=== PATIENT | male | born 1955 | race Caucasian/White ===

== ENCOUNTER 2022-01-27 14:39 | Inpatient (IN) ==
[2022-01-27] MEDS ORDERED: SODIUM CHLORIDE 0.9% 500 ML IV SCH (15:00)
--- NOTE | 2022-01-27 15:06 | Emergency Department Note ---
Impression & Plan SOB (shortness of breath), Atrial fibrillation with rapid ventricular response, Weakness, Anemia, Hypomagnesemia ED Provider Note NAME: KENZIE CAO AGE: 66 SEX: M : 1955 ARRIVES VIA: Walk-In INFORMANT: [Patient] ED PROVIDER(S): [Vance Ramirez MD] CHIEF COMPLAINT: Short of breath HISTORY OF PRESENT ILLNESS: The patient is a 66-year-old male who presents to the ER with some shortness of breath and nausea and chills. The patient left [facility] in [place] on the , 5 days ago. He was in [place] for 50 days for intensive chemotherapy. When he left [place], his white count was 4, his hemoglobin was 7.5, his platelet count was 58. He went back to [place] 2 days ago and had a checkup and things were okay. Yesterday, the patient developed some increasing shortness of breath. Today, he was short of breath, he was nauseated with some chills. He denies any increased cough, no vomiting or diarrhea. No urinary complaints. He is concerned that his counts may be low. His did note he is quite pale REVIEW OF SYSTEMS: See HPI for pertinent positives and negatives. A total of ten systems were reviewed and were otherwise negative. PMHx/PSHx: See Below SOCIAL HISTORY: See Below. PHYSICAL EXAM: GENERAL: Patient is in no acute distress. HEENT: No acute trauma, normocephalic atraumatic, mucous membranes moist, no nasal congestion, no scleral icterus. NECK: No stridor, no adenopathy, no meningismus, trachea is midline. LUNGS: Clear to auscultation bilaterally, no wheeze, no rhonchi, breath sounds equal. HEART: Mildly tachycardic, irregular rhythm, no obvious murmurs. ABDOMEN: Soft, nontender, bowel sounds positive, no peritonitis. EXTREMITIES: No cyanosis, mild bilateral pedal edema, full range of motion of all the joints without pain or difficulty, no signs for acute trauma. NEUROLOGIC: Oriented x 3, no acute motor or sensory deficits, no focal weakness. SKIN: No rash, no jaundice, no diaphoresis. Pale. DIFFERENTIAL DIAGNOSIS: Infection, dehydration, UTI, neutropenia, COVID-19, influenza, metabolic abnormality, hypo/hyperglycemia, electrolyte disturbance, anemia, hypoxia, cardiac sources, intracerebral event, toxicologic issues, stroke, TIA, as well as other pathologies. EMERGENCY DEPARTMENT COURSE/PROCEDURES: ECG: Indication was weakness. The ECG shows atrial fibrillation with a rate of 110. There is diffuse nonspecific ST change. No ST elevation, no PVCs. The QTc is 373. Continuous Cardiac Monitoring: An order was placed for continuous cardiac monitoring. The monitor shows a rate of 118 with atrial fibrillation. Critical Care Note: I have personally spent 49 minutes of critical care time in the direct management of this patient. This includes bedside care, in terpretation of diagnostic studies, and testing, discussion with consultants, patient, and family members, and other required patient management activities. This 49 minutes is in excess of all separately billable procedures. MEDICAL DECISION MAKING: There is no leukocytosis. The patient is anemic with a hemoglobin of 7.1. Platelet count is 100. No coagulopathy. Magnesium was low at 1.4, no renal failure. Lactic acid level was not elevated making severe sepsis less likely. No concerning liver enzyme elevation. The patient appeared to be in a euthyroid state. Digoxin level was not toxic. COVID test was negative. Chest x-ray was clear, no pneumonia or CHF. ECG showed rapid atrial fibrillation without any obvious acute ST elevation. Cardiac troponin testing was slightly elevated at 52, this could be from injury or potentially mismatch. Patient was given a 500 cc saline bolus. He received 2 doses of IV metoprolol to control his heart rate. He was given 75 mg of oral metoprolol. I did discuss the case with Dr. Herrera at [facility] in [place]. He was covering for hematology. We discussed the case. The patient is to receive 1 unit of packed red blood cells and better rate control. It was felt that the higher heart rate, the anemia was causing his dyspnea. As he was not febrile or neutropenic, there was no reason to administer empiric antibiotics. I spoke with the patient and case management. 1 unit of irradiated packed red blood cells was ordered to be transfused. Irradiated blood was to be given as the patient has received this type of blood recently while at [facility]. The on-call hospitalist was consulted. The consent for the transfusion was completed and signed. Past Med/Surg History Medical History Atrial fibrillation Paroxysmal - very rare Per 09/21/20 cardio note- had a fib episode February 2020 after shingles vaccine and Jun 2020 - both episodes lasted several hours- resolved after taking Flecainide as prescribed (takes PRN per cardio instructions) [id number] score =3 for risk factors of age of 64, HTN, and DM2 per cardio records- patient not on AC secondary to bleeding complications in the past (Next cardio visit Sep 2021) Diabetes mellitus, type 2 DENIES NEUROPATHY Enlargement of aortic root Follows with Dr. Sibley Per December 2019 ECHO - Aortic root and proximal ascending aorta are mildly enlarged (4.3/4.1 cm respectively) GERD (gastroesophageal reflux disease) History of melanoma PAST HISTORY Hyperlipidemia Hypertension Surgical History History of biopsy of bladder History of cataract surgery bilt History of colonoscopy History of melanoma excision History of removal of cyst off finger Family History Other No family history of adverse response to anesthesia Social History Smoking Status: Former smoker Cigarettes Per Day: QUIT IN 1987; Second Hand Exposure: No; Hx Alcohol Use: Yes Alcohol type: other Hx Substance Use: No Preferred Language: Macedonian Communication Ability: Effective Therapist Physical Required: No Beliefs That Will Affect Care: None Current Living Situation: Spouse Feels Safe at Home: Yes Assistive Devices: Glasses Allergies Allergies Allergy/AdvReac Type Severity Reaction Status Date / Time bee venom protein (honey bee) Allergy Mild SWELLING Verified 01/27/22 15:37 hydrocodone AdvReac Unknown NAUSEA Verified 01/27/22 15:37 Home Meds Home Medications Medication Instructions Recorded Confirmed finasteride 5 mg tablet 5 mg PO HS 09/18/18 01/27/22 flecainide 100 mg tablet 2 tab PO DIRECTED PRN 09/18/18 01/27/22 metformin 500 mg tablet 1,000 mg PO BID 05/08/21 01/27/22 omeprazole 20 mg capsule,delayed 20 mg PO QAM 05/08/21 01/27/22 release rosuvastatin 10 mg tablet 10 mg PO QAM 05/08/21 01/27/22 losartan 100 mg tablet 100 mg PO QAM 05/10/21 01/27/22 tamsulosin 0.4 mg capsule (Flomax) 0.4 mg PO BID 05/10/21 01/27/22 tadalafil 5 mg tablet 5 mg PO DAILY PRN 09/03/21 01/27/22 acyclovir 400 mg tablet 400 mg PO BID 01/27/22 01/27/22 digoxin 125 mcg (0.125 mg) tablet 125 mcg PO QAM 01/27/22 01/27/22 metoprolol tartrate 50 mg tablet 75 mg PO TID 01/27/22 01/27/22 multivitamin with minerals 1 tab PO QAM 01/27/22 01/27/22 Results & Data (ED) Vital Signs Vital Signs - 24 hr 01/27/22 14:41 01/27/22 14:55 01/27/22 15:17 Temperature 36.5 C Temperature Source Oral Pulse Rate 107 H 134 H Pulse Rate from SpO2 Sensor 68 Respiratory Rate 20 25 H Respiratory Effort / Characteristics Non-Labored Spontaneous Respiratory Depth Normal Respiratory Pattern Regular Blood Pressure 158/107 H 144/107 H Blood Pressure Mean 124 119 Blood Pressure Position Sitting Pulse Oximetry 95 96 Oxygen Delivery Method Room Air Room Air Sepsis Recent Fever Within 48 Hours No Sepsis New/Unexplained Change in Mental Status No Sepsis Action Taken by Nursing No Action Required 01/27/22 15:20 01/27/22 15:30 01/27/22 16:00 Temperature Temperature Source Pulse Rate 110 H 121 H Pulse Rate from SpO2 Sensor 76 75 Respiratory Rate 22 20 Respiratory Effort / Characteristics Respiratory Depth Respiratory Pattern Blood Pressure 153/95 H 152/103 H Blood Pressure Mean 114 119 Blood Pressure Position Pulse Oximetry 96 96 Oxygen Delivery Method Room Air Room Air Room Air Sepsis Recent Fever Within 48 Hours Sepsis New/Unexplained Change in Mental Status Sepsis Action Taken by Nursing 01/27/22 16:17 01/27/22 16:30 01/27/22 17:00 Temperature Temperature Source Pulse Rate 124 H 105 H 109 H Pulse Rate from SpO2 Sensor 80 Respiratory Rate 20 16 Respiratory Effort / Characteristics Respiratory Depth Respiratory Pattern Blood Pressure 165/110 H Blood Pressure Mean 128 Blood Pressure Position Pulse Oximetry 95 Oxygen Delivery Method Room Air Sepsis Recent Fever Within 48 Hours Sepsis New/Unexplained Change in Mental Status Sepsis Action Taken by Nursing 01/27/22 17:01 01/27/22 17:03 01/27/22 17:30 Temperature Temperature Source Pulse Rate 119 H 119 H 126 H Pulse Rate from SpO2 Sensor Respiratory Rate 25 H 26 H Respiratory Effort / Characteristics Respiratory Depth Respiratory Pattern Blood Pressure 176/107 H 176/107 H 167/111 H Blood Pressure Mean 130 129 Blood Pressure Position Pulse Oximetry 94 Oxygen Delivery Method Room Air Sepsis Recent Fever Within 48 Hours Sepsis New/Unexplained Change in Mental Status Sepsis Action Taken by Nursing 01/27/22 18:00 01/27/22 18:09 Temperature Temperature Source Pulse Rate 95 H Pulse Rate from SpO2 Sensor Respiratory Rate 21 Respiratory Effort / Characteristics Respiratory Depth Respiratory Pattern Blood Pressure 143/117 H Blood Pressure Mean 125 Blood Pressure Position Pulse Oximetry 95 Oxygen Delivery Method Room Air Room Air Sepsis Recent Fever Within 48 Hours Sepsis New/Unexplained Change in Mental Status Sepsis Action Taken by [facility] Medications Current Medication List: was personally reviewed by me Laboratory Data Attestation: I reviewed the patient's lab results. Result diagrams: 01/27/22 15:10 01/27/22 15:10 Lab Results 01/27/22 01/27/22 01/27/22 Range/Units 15:10 15:10 15:10 WBC 5.11 (4.8-10.8) K/uL RBC 2.26 L (4.7-6.1) M/uL Hgb 7.1 L (14.0-18.0) g/dL Hct 21.1 L (42-52) % MCV 93.4 (80-100) fL MCH 31.4 (25-34) pg MCHC 33.6 (32-36) g/dL RDW Std Deviation 48.7 H (36.4-46.3) fL RDW Coeff of Anna 14.6 H (11.5-14.5) % Plt Count 100 L (130-400) K/uL MPV 11.3 H (7.4-10.4) fL Absolute Nucleated RBC 0.30 H (0-0) K/uL Nucleated RBC % (auto) 5.8 % Neutrophils % (Manual) 73.7 % Lymphocytes % (Manual) 7.9 % Monocytes % (Manual) 17.5 % Myelocytes % (Man) 0.9 % Neutrophils # (Manual) 3.77 (1.4-6.5) K/uL Total Absolute Neuts 3.77 (1.4-6.5) K/uL Lymphocytes # (Manual) 0.40 L (1.2-3.4) K/uL Total Abs Lymphocytes 0.40 L (1.2-3.4) K/uL Monocytes # (Manual) 0.89 H (0.11-0.59) K/uL Myelocytes # (Manual) 0.05 H (0-0) K/uL Polychromasia 1+ PT 11.1 (9.0-12.0) Seconds INR 1.0 (0.9-1.1) APTT 27.3 (21.0-31.0) Seconds PTT Ratio 1.0 Sodium 137 (136-145) mmol/L Potassium 4.0 (3.5-5.1) mmol/L Chloride 104 (98-107) mmol/L Carbon Dioxide 27 (21-32) mmol/L Anion Gap 6 (3-11) BUN 13 (6-23) mg/dl Creatinine 1.17 (0.6-1.4) mg/dl Est Cr Clr Drug Dosing 76.0 ml/min Est GFR ( Amer) 74.3 ml/min Est GFR (Non-Af Amer) 64.1 ml/min BUN/Creatinine Ratio 11.1 (10-20) Glucose 140 H (70-99(Fasting)) mg/dl Lactate (0.4-2.0) mmol/L Calcium 8.6 (8.5-10.1) mg/dl Magnesium 1.4 L (1.7-2.4) mg/dl Total Bilirubin 0.3 (0.2-1.0) mg/dl AST 18 (13-39) U/L ALT 16 (7-52) U/L Alkaline Phosphatase 93 (34-104) U/L Troponin I High Sens 52.2 H* (0-20) pg/ml Total Protein 6.3 (6.0-8.3) gm/dl Albumin 3.5 (3.4-5.0) gm/dl Globulin 2.8 (2.5-4.0) gm/dl Albumin/Globulin Ratio 1.3 (0.9-2) TSH (0.300-4.500) uIu/ml Digoxin (0.8-2.0) ng/ml SARS-CoV-2, RNA, NAAT (NEGATIVE) Blood Type Blood Type Recheck Antibody Screen Crossmatch 01/27/22 01/27/22 01/27/22 Range/Units 15:10 15:10 15:10 WBC (4.8-10.8) K/uL RBC (4.7-6.1) M/uL Hgb (14.0-18.0) g/dL Hct (42-52) % MCV (80-100) fL MCH (25-34) pg MCHC (32-36) g/dL RDW Std Deviation (36.4-46.3) fL RDW Coeff of Anna (11.5-14.5) % Plt Count (130-400) K/uL MPV (7.4-10.4) fL Absolute Nucleated RBC (0-0) K/uL Nucleated RBC % (auto) % Neutrophils % (Manual) % Lymphocytes % (Manual) % Monocytes % (Manual) % Myelocytes % (Man) % Neutrophils # (Manual) (1.4-6.5) K/uL Total Absolute Neuts (1.4-6.5) K/uL Lymphocytes # (Manual) (1.2-3.4) K/uL Total Abs Lymphocytes (1.2-3.4) K/uL Monocytes # (Manual) (0.11-0.59) K/uL Myelocytes # (Manual) (0-0) K/uL Polychromasia PT (9.0-12.0) Seconds INR (0.9-1.1) APTT (21.0-31.0) Seconds PTT Ratio Sodium (136-145) mmol/L Potassium (3.5-5.1) mmol/L Chloride (98-107) mmol/L Carbon Dioxide (21-32) mmol/L Anion Gap (3-11) BUN (6-23) mg/dl Creatinine (0.6-1.4) mg/dl Est Cr Clr Drug Dosing ml/min Est GFR ( Amer) ml/min Est GFR (Non-Af Amer) ml/min BUN/Creatinine Ratio (10-20) Glucose (70-99(Fasting)) mg/dl Lactate 1.2 (0.4-2.0) mmol/L Calcium (8.5-10.1) mg/dl Magnesium (1.7-2.4) mg/dl Total Bilirubin (0.2-1.0) mg/dl AST (13-39) U/L ALT (7-52) U/L Alkaline Phosphatase (34-104) U/L Troponin I High Sens (0-20) pg/ml Total Protein (6.0-8.3) gm/dl Albumin (3.4-5.0) gm/dl Globulin (2.5-4.0) gm/dl Albumin/Globulin Ratio (0.9-2) TSH 3.929 (0.300-4.500) uIu/ml Digoxin 1.1 (0.8-2.0) ng/ml SARS-CoV-2, RNA, NAAT (NEGATIVE) Blood Type Blood Type Recheck Antibody Screen Crossmatch 01/27/22 01/27/22 01/27/22 Range/Units 15:33 16:56 17:20 WBC (4.8-10.8) K/uL RBC (4.7-6.1) M/uL Hgb (14.0-18.0) g/dL Hct (42-52) % MCV (80-100) fL MCH (25-34) pg MCHC (32-36) g/dL RDW Std Deviation (36.4-46.3) fL RDW Coeff of Anna (11.5-14.5) % Plt Count (130-400) K/uL MPV (7.4-10.4) fL Absolute Nucleated RBC (0-0) K/uL Nucleated RBC % (auto) % Neutrophils % (Manual) % Lymphocytes % (Manual) % Monocytes % (Manual) % Myelocytes % (Man) % Neutrophils # (Manual) (1.4-6.5) K/uL Total Absolute Neuts (1.4-6.5) K/uL Lymphocytes # (Manual) (1.2-3.4) K/uL Total Abs Lymphocytes (1.2-3.4) K/uL Monocytes # (Manual) (0.11-0.59) K/uL Myelocytes # (Manual) (0-0) K/uL Polychromasia PT (9.0-12.0) Seconds INR (0.9-1.1) APTT (21.0-31.0) Seconds PTT Ratio Sodium (136-145) mmol/L Potassium (3.5-5.1) mmol/L Chloride (98-107) mmol/L Carbon Dioxide (21-32) mmol/L Anion Gap (3-11) BUN (6-23) mg/dl Creatinine (0.6-1.4) mg/dl Est Cr Clr Drug Dosing ml/min Est GFR ( Amer) ml/min Est GFR (Non-Af Amer) ml/min BUN/Creatinine Ratio (10-20) Glucose (70-99(Fasting)) mg/dl Lactate (0.4-2.0) mmol/L Calcium (8.5-10.1) mg/dl Magnesium (1.7-2.4) mg/dl Total Bilirubin (0.2-1.0) mg/dl AST (13-39) U/L ALT (7-52) U/L Alkaline Phosphatase (34-104) U/L Troponin I High Sens (0-20) pg/ml Total Protein (6.0-8.3) gm/dl Albumin (3.4-5.0) gm/dl Globulin (2.5-4.0) gm/dl Albumin/Globulin Ratio (0.9-2) TSH (0.300-4.500) uIu/ml Digoxin (0.8-2.0) ng/ml SARS-CoV-2, RNA, NAAT NEGATIVE (NEGATIVE) Blood Type O Positive Blood Type Recheck O Positive Antibody Screen NEGATIVE Crossmatch See Detail Administered Medications Discontinued Medications Sodium Chloride (Nss) 500 mls @ 999 mls/hr IV .Q31M ANA MARÍA Stop: 01/27/22 15:30 Last Infusion: 01/27/22 15:50 Dose: 0 mls/hr Documented by: [id number] Admin: 01/27/22 15:19 Dose: 999 mls/hr Documented by: [id number] Magnesium Sulfate/Dextrose (Magnesium Sulfate / D5w) 1 gm in 100 mls @ 100 mls/hr IV Q1H ANA MARÍA Stop: 01/27/22 18:10 Last Admin: 01/27/22 17:22 Dose: 100 mls/hr Documented by: [id number] Infusion: 01/27/22 17:22 Dose: 0 mls/hr Documented by: [id number] Admin: 01/27/22 16:22 Dose: 100 mls/hr Documented by: [id number] Metoprolol Tartrate (Metoprolol Tartrate 1 Mg/Ml Vial) 5 mg IV NOW STA Stop: 01/27/22 16:14 Last Admin: 01/27/22 16:17 Dose: 5 mg Documented by: [id number] Metoprolol Tartrate (Metoprolol Tartrate 1 Mg/Ml Vial) 5 mg IV NOW STA Stop: 01/27/22 16:37 Last Admin: 01/27/22 17:03 Dose: 5 mg Documented by: [id number] Metoprolol Tartrate (Metoprolol Tartrate 25 Mg Tab) 75 mg PO NOW STA Stop: 01/27/22 16:37 Last Admin: 01/27/22 17:01 Dose: 75 mg Documented by: [id number] Imaging Data Radiologist's Impression: Chest X-Ray 01/27/22 15:00 XR chest 1V portable CLINICAL HISTORY: weakness TECHNIQUE: Single frontal radiograph of the chest was obtained. Comparison: Comparison is made to chest radiograph 04/23/2007 FINDINGS: A right port catheter is seen. Cardiomegaly is noted. The lungs are clear. No evidence of pleural effusion or pneumothorax. IMPRESSION: No acute chest disease. ACT 112: Negative or not required by law. Electronically signed by: Dallas Joyner M.D. 01/27/2022 3:48 PM Discharge Plan Visit Data Chief Complaint: Respiratory Problems Stated Complaint: LEUKEMIA PT/DISCHARGED FROM [facility]/RESP PROBLEMS ED Provider: Vance Ramirez Patient Disposition: Admitted As Inpatient Condition: Fair Prescriptions Prescriptions: No Action flecainide 100 mg Tablet 2 tab PO DIRECTED PRN (Reason: Atrial Fibrillation) RF: 0 finasteride 5 mg Tablet 5 mg PO HS RF: 0 tadalafil 5 mg tablet 5 mg PO DAILY PRN (Reason: Erectile Dysfunction) RF: 0 acyclovir 400 mg tablet 400 mg PO BID RF: 0 metoprolol tartrate 50 mg tablet 75 mg PO TID RF: 0 digoxin 125 mcg (0.125 mg) tablet 125 mcg PO QAM RF: 0 multivitamin with minerals Tablet 1 tab PO QAM RF: 0 metformin 500 mg Tablet 1,000 mg PO BID RF: 0 omeprazole 20 mg Capsule,Delayed Release(Dr/Ec) 20 mg PO QAM RF: 0 rosuvastatin 10 mg Tablet 10 mg PO QAM RF: 0 tamsulosin [Flomax] 0.4 mg Capsule 0.4 mg PO BID RF: 0 losartan 100 mg Tablet 100 mg PO QAM RF: 0
--- NOTE | 2022-01-27 15:51 | XRay Report ---
XR chest 1V portable CLINICAL HISTORY: weakness TECHNIQUE: Single frontal radiograph of the chest was obtained. Comparison: Comparison is made to chest radiograph 04/23/2007 FINDINGS: A right port catheter is seen. Cardiomegaly is noted. The lungs are clear. No evidence of pleural eff usion or pneumothorax. IMPRESSION: No acute chest disease. ACT 112: Negative or not required by law. Electronically signed by: Dallas Joyner M.D. 01/27/2022 3:48 PM
[2022-01-27 16:03] LABS: Hematocrit (blood only) 21.1 % (42-52); Hemoglobin 7.1 g/dL (14.0-18.0); Mean Corpuscular Hemoglobin 31.4 pg (25-34); Mean Corpuscular Hgb Conc 33.6 g/dL (32-36); Mean Corpuscular Volume 93.4 fL (80-100); Mean Platelet Volume 11.3 fL (7.4-10.4); Nucleated RBC % (auto) 5.8 %; Partial Thromboplastin Time 27.3 Seconds (21.0-31.0); Platelet Count 100 K/uL (130-400); Prothrombin Time 11.1 Seconds (9.0-12.0); RDW Coefficient of Variation 14.6 % (11.5-14.5); RDW Standard Deviation 48.7 fL (36.4-46.3); Red Blood Count 2.26 M/uL (4.7-6.1); White Blood Count 5.11 K/uL (4.8-10.8)
[2022-01-27 16:04] LABS: ANC (manual) 3.77 K/uL (1.4-6.5); Albumin Globulin Ratio 1.3 (0.9-2); Albumin Level 3.5 gm/dl (3.4-5.0); BUN Creatinine Ratio 11.1 (10-20); Bilirubin,Total 0.3 mg/dl (0.2-1.0); Calcium 8.6 mg/dl (8.5-10.1); Est GFR (African American) 74.3 ml/min; Est GFR (Non-African American) 64.1 ml/min; Globulin 2.8 gm/dl (2.5-4.0); Lymphocytes % (manual) 7.9 %; Magnesium 1.4 mg/dl (1.7-2.4); Monocytes # (manual) 0.89 K/uL (0.11-0.59); Monocytes % (manual) 17.5 %; Myelocytes # (manual) 0.05 K/uL (0-0); Myelocytes % (manual) 0.9 %; Neutrophils # (manual) 3.77 K/uL (1.4-6.5); Neutrophils % (manual) 73.7 %; Polychromasia 1+; Total Protein 6.3 gm/dl (6.0-8.3)
[2022-01-27 16:11] LABS: Troponin I High Sensitivity 52.2 pg/ml (0-20)
[2022-01-27] MEDS ORDERED: METOPROLOL TARTRATE 1 MG/ML VIAL IV STA ×2 (16:13→16:36)
[2022-01-27] MEDS: MAGNESIUM SULFATE / D5W 1 GM/100 ML BAG IV SCH ×2 (16:22→17:22)
[2022-01-27] MEDS ORDERED: METOPROLOL TARTRATE 25 MG TAB PO STA (16:36)
[2022-01-27] MEDS ORDERED: SODIUM CHLORIDE 0.9% 250 ML IV PRN (16:50)
--- NOTE | 2022-01-27 18:06 | History & Physical Report ---
Date of Service January 27, 2022 Assessment & Plan (1) Atrial fibrillation with RVR: Plan: 66-year-old male with history of newly diagnosed AML, on chemotherapy, pancytopenia secondary to chemotherapy Paroxysmal atrial fibrillation not on anticoagulation, diabetes type 2 on metformin, hypertension, other problems noted below presenting with shortness of breath x2 days. SHORTNESS OF BREATH LIKELY SECONDARY TO SYMPTOMATIC ANEMIA AND ATRIAL FIBRILLATION AND RVR Not in distress Currently on room air, O2 sats more than 90% Management per below SYMPTOMATIC ANEMIA PANCYTOPENIA SECONDARY TO CHEMOTHERAPY, NEWLY DIAGNOSED AML Underwent induction chemotherapy as an inpatient and [facility] last month Hemoglobin 7.1, 1 unit packed RBCs irradiated ordered Repeat H&H tonight Goal hemoglobin above 8 ATRIAL FIBRILLATION IN RVR HISTORY OF PAROXYSMAL ATRIAL FIBRILLATION NOT ON ANTICOAGULATION During recent admission to [facility], metoprolol tartrate increased to 75 mg 3 times daily Also on digoxin 125 mcg daily Continue above for now, hopefully blood transfusion will improve heart rates Patient may need medication adjustment Currently platelet level 100,000, will initiate anticoagulation with heparin drip Echocardiogram ordered Cardiology service consulted DIABETES TYPE 2 Usually on metformin Hold for now Insulin sliding scale ordered HYPERTENSION BP elevated, will monitor for now Continue losartan BPH Continue tamsulosin and finasteride DVT prophylaxis Will be on IV heparin Disposition Anticipate discharge to home when medically stable plan of care discussed with patient and his Danial at bedside in detail and at length all questions answered They are understanding, agreeable, comfortable with the plan of care History of Present Illness Chief Complaint: Chief complaint: Shortness of breath Primary Care Provider: Anthony Rico MD 66-year-old male with history of newly diagnosed AML, on chemotherapy, pancytopenia secondary to chemotherapy Paroxysmal atrial fibrillation not on anticoagulation, diabetes type 2 on metformin, hypertension, other problems noted below presenting with shortness of breath x2 days. Patient was recently admitted for about 50 days in [facility] for induction chemotherapy, in light of his newly diagnosed AML. While hospitalized, patient had atrial fibrillation and rapid ventricular response, cardiology service consulted, digoxin 125 mcg daily started and metoprolol tartrate increased to 75 mg 3 times daily. At that time, anticoagulation was not initiated secondary to patient's thrombocytopenia of 30,000's. Patient was discharged and followed up with hematology oncology 2 days ago. Patient was feeling fine and CBC was found to be stable. States yesterday the patient started to have sensation of shortness of breath and heart racing. Denies chest pain, dizziness, fevers or chills, abdominal pain. Does have occasional nausea. He presented to the ER today due to persistence of shortness of breath. At the ER, patient found to be in atrial fibrillation, heart rate 110-to 120s. BP elevated. CBC showed hemoglobin of 7.1, platelet count of 100,000, WBC 5000. Magnesium 1.4. He was given oral metoprolol and magnesium IV. 1 unit irradiated packed RBCs also ordered. On exam, patient was seen with patient's at the bedside. Patient reports he is starting to feel improved compared to initial presentation. No active chest pain, shortness of breath, palpitations, dizziness, nausea vomiting, abdominal pain. Allergies Allergy/AdvReac Type Severity Reaction Status Date / Time bee venom protein (honey bee) Allergy Mild SWELLING Verified 01/27/22 15:37 hydrocodone AdvReac Unknown NAUSEA Verified 01/27/22 15:37 Home Medications Medication Instructions Recorded Confirmed Type finasteride 5 mg tablet 5 mg PO HS 09/18/18 01/27/22 History flecainide 100 mg tablet 2 tab PO DIRECTED PRN 09/18/18 01/27/22 History metformin 500 mg tablet 1,000 mg PO BID 05/08/21 01/27/22 History omeprazole 20 mg capsule,delayed 20 mg PO QAM 05/08/21 01/27/22 History release rosuvastatin 10 mg tablet 10 mg PO QAM 05/08/21 01/27/22 History losartan 100 mg tablet 100 mg PO QAM 05/10/21 01/27/22 History tamsulosin 0.4 mg capsule (Flomax) 0.4 mg PO BID 05/10/21 01/27/22 History tadalafil 5 mg tablet 5 mg PO DAILY PRN 09/03/21 01/27/22 History acyclovir 400 mg tablet 400 mg PO BID 01/27/22 01/27/22 History digoxin 125 mcg (0.125 mg) tablet 125 mcg PO QAM 01/27/22 01/27/22 History metoprolol tartrate 50 mg tablet 75 mg PO TID 01/27/22 01/27/22 History multivitamin with minerals 1 tab PO QAM 01/27/22 01/27/22 History Past Med/Surg History Medical History (Updated 01/27/22 @ 18:00 by Calvin Rodriguez MD) Atrial fibrillation Paroxysmal - very rare Per 09/21/20 cardio note- had a fib episode February 2020 after shingles vaccine and Jun 2020 - both episodes lasted several hours- resolved after taking Flecainide as prescribed (takes PRN per cardio instructions) [id number] score =3 for risk factors of age of 64, HTN, and DM2 per cardio records- patient not on AC secondary to bleeding complications in the past (Next cardio visit Sep 2021) Diabetes mellitus, type 2 DENIES NEUROPATHY Enlargement of aortic root Follows with Dr. Sibley Per December 2019 ECHO - Aortic root and proximal ascending aorta are mildly enlarged (4.3/4.1 cm respectively) GERD (gastroesophageal reflux disease) History of melanoma PAST HISTORY Hyperlipidemia Hypertension Surgical History History of biopsy of bladder History of cataract surgery bilt History of colonoscopy History of melanoma excision History of removal of cyst off finger Family History Other No family history of adverse response to anesthesia Social History (Updated 09/06/21 @ 09:39 by Maria Elena Gonzalez MD) Smoking Status: Former smoker Cigarettes Per Day: QUIT IN 1987; Second Hand Exposure: No; Hx Alcohol Use: Yes Alcohol type: other Hx Substance Use: No Preferred Language: German Communication Ability: Effective Drive In Teller Required: No Beliefs That Will Affect Care: None Current Living Situation: Spouse Feels Safe at Home: Yes Assistive Devices: Glasses Review of Systems Review of Systems: all noted and negative except for above Physical Exam Physical Exam: General- oriented x 3, not in distress, speaks in sentences with no effort or accessory muscle use Head- atraumatic Eyes- PERRL, EOMI, anicteric ENT- oropharynx clear Neck- supple, no JVD, no adenopathy, no thyromegaly; carotids +2/2, no bruits appreciated Lungs- clear to auscultation bilaterally, no rales/wheezes Port in place, right anterior chest wall, no erythema/edema/hematoma/discharge Heart-mild tachycardia 110s, irregularly irregular rhythm no murmur, no gallop, no rub appreciated Abdomen- normal bowel sounds, nondistended, soft, nontender, no masses or hepatosplenomegaly Extremities-trace pretibial edema right greater than left on the lower legs, no calf tenderness; peripheral pulses intact Neuro- alert, oriented x 3; CN 2-12 grossly intact; motor 5/5 bilaterally; sensation 100% on all extremities; no other gross focal neurologic deficits Skin- warm & dry Results & Data Results & Data ([facility]) Vital Signs (Past 12 Hours) Vital Signs Temp Pulse Resp BP Pulse Ox 01/27/22 17:30 126 H 26 H 167/111 H 94 01/27/22 17:03 119 H 176/107 H 01/27/22 17:01 119 H 25 H 176/107 H 01/27/22 17:00 109 H 16 01/27/22 16:30 105 H 20 165/110 H 95 01/27/22 16:17 124 H 01/27/22 16:00 121 H 20 152/103 H 96 01/27/22 15:30 110 H 22 153/95 H 96 01/27/22 15:17 134 H 25 H 144/107 H 96 01/27/22 14:41 36.5 C 107 H 20 158/107 H 95 all noted and reviewed including below Code Status & VTE Plan VTE Prophylaxis Plan VTE Prophylaxis will be ordered: Yes
[2022-01-27] MEDS ORDERED: MAGNESIUM SULFATE / D5W 1 GM/100 ML BAG IV ONE (18:37)
[2022-01-27] MEDS ORDERED: DEXTROSE 50% 50 ML SYRINGE IV PRN (18:37)
[2022-01-27] MEDS ORDERED: CARBOHYDRATES FOR HYPOGLYCEMIA PO PRN (18:37)
[2022-01-27] MEDS ORDERED: GLUCAGON FOR INJ 1 MG VIAL SQ PRN (18:37)
[2022-01-27] MEDS ORDERED: GLUCOSE 40% GEL 15 GM TUBE PO PRN (18:37)
[2022-01-27] MEDS ORDERED: Heparin IV Adult Wt-Based Standard *NO* Bolus Protocol IV SCH (18:37)
[2022-01-27] MEDS ORDERED: ACETAMINOPHEN 325 MG TAB PO PRN (18:37)
[2022-01-27] MEDS ORDERED: GLUCOSE 10 TABS/TUBE PO PRN (18:37)
[2022-01-27] MEDS: TAMSULOSIN HCL 0.4 MG CAP PO SCH (20:52)
[2022-01-27] MEDS: METOPROLOL TARTRATE 25 MG TAB PO SCH (20:52)
[2022-01-27] MEDS: ACYCLOVIR 400 MG TAB PO SCH (20:52)
[2022-01-27] MEDS: FINASTERIDE 5 MG TAB PO SCH (20:52)
[2022-01-27] MEDS: MAGNESIUM OXIDE 400 MG TAB PO SCH (20:52)
[2022-01-27] MEDS: INSULIN ASPART PER UNIT SC SCH (20:53)
[2022-01-27 20:58] LABS: Appearance Urine Clear (Clear); Bacteria Urine Automated Negative (Negative); Bilirubin Urine Negative (Negative); Blood Urine Negative (Negative); Color Urine Yellow; Glucose Urine UA Negative (Negative); Ketones Urine Negative (Negative); Leukocyte Esterase Urine Negative (Negative); Nitrite Urine Negative (Negative); Protein Urine 1+ (Negative); RBC Urine Automated 0-4 /hpf (0-4); Specific Gravity Urine 1.016 (1.000-1.030); Urobilinogen Urine Negative (Negative)
[2022-01-27 21:15] LABS: Hematocrit (blood only) 22.6 % (42-52); Hemoglobin 7.6 g/dL (14.0-18.0)
--- NOTE | 2022-01-27 21:40 | Electrocardiogram Report ---
Test Reason : Blood Pressure : / mmHG Vent. Rate : 110 BPM Atrial Rate : 174 BPM P-R Int : 000 ms QRS Dur : 088 ms QT Int : 276 ms P-R-T Axes : 000 012 -80 degrees QTc Int : 373 ms Atrial fibrillation with rapid ventricular response Nonspecific T wave abnormality Abnormal ECG When compared with ECG of 25-OCT-2010 02:49, Atrial fibrillation has replaced Sinus rhythm Non-specific change in ST segment in Lateral leads Nonspecific T wave abnormality, worse in Inferior leads Nonspecific T wave abnormality, worse in Lateral leads Confirmed by Rogelio Santa ([id number]) on 01/27/2022 9:39:35 PM Referred By: ED Confirmed By:Rogelio Santa
[2022-01-27] MEDS ORDERED: MELATONIN 3 MG TAB PO PRN (21:52)
[2022-01-27] MEDS: HEPARIN SODIUM/DEXTROSE 25,000 UNITS/500 ML BAG IV SCH (22:16)
[2022-01-27] MEDS ORDERED: PROMETHAZINE HCL 12.5 MG in SODIUM CHLORIDE 0.9% 50 ML IV PRN (23:51)
[2022-01-28] MEDS ORDERED: ONDANSETRON INJ 2 MG/ML 2 ML VIAL IV STA (00:16)
[2022-01-28] MEDS: HEPARIN 100 UNIT/ML 5ML FLUSH FLUSH PRN (03:03)
[2022-01-28 05:20] LABS: Partial Thromboplastin Ratio 2.8
[2022-01-28 08:01] LABS: Estimated Average Glucose 174 mg/dl; Hemoglobin A1C 7.7 % (4.5-5.6)
[2022-01-28] MEDS: INSULIN ASPART PER UNIT SC SCH ×4 (08:15→20:20)
[2022-01-28 08:44] LABS: Hematocrit (blood only) 24.9 % (42-52); Hemoglobin 8.6 g/dL (14.0-18.0); Mean Corpuscular Hemoglobin 31.6 pg (25-34); Mean Corpuscular Hgb Conc 34.5 g/dL (32-36); Mean Corpuscular Volume 91.5 fL (80-100); Mean Platelet Volume 11.8 fL (7.4-10.4); Nucleated RBC # (auto) 0.32 K/uL (0-0); Nucleated RBC % (auto) 6.3 %; Platelet Count 100 K/uL (130-400); RDW Coefficient of Variation 14.9 % (11.5-14.5); RDW Standard Deviation 48.7 fL (36.4-46.3); Red Blood Count 2.72 M/uL (4.7-6.1); White Blood Count 5.15 K/uL (4.8-10.8)
[2022-01-28] MEDS: METOPROLOL TARTRATE 25 MG TAB PO SCH ×3 (08:59→20:27)
[2022-01-28] MEDS: MAGNESIUM OXIDE 400 MG TAB PO SCH ×2 (08:59→20:28)
[2022-01-28] MEDS: TAMSULOSIN HCL 0.4 MG CAP PO SCH ×2 (08:59→20:27)
[2022-01-28] MEDS: LOSARTAN POTASSIUM 50 MG TAB PO SCH (08:59)
[2022-01-28] MEDS: ACYCLOVIR 400 MG TAB PO SCH ×2 (08:59→20:28)
[2022-01-28] MEDS: ROSUVASTATIN CALCIUM 10 MG TAB PO SCH (09:00)
[2022-01-28] MEDS: PANTOprazole 40 MG TAB PO SCH (09:00)
[2022-01-28 09:05] LABS: ALC (manual) 0.23 K/uL (1.2-3.4); ANC (manual) 3.83 K/uL (1.4-6.5); Basophils # (manual) 0.05 K/uL (0-0.2); Basophils % (manual) 0.9 %; Lymphocytes # (manual) 0.23 K/uL (1.2-3.4); Lymphocytes % (manual) 4.4 %; Monocytes # (manual) 0.87 K/uL (0.11-0.59); Monocytes % (manual) 16.8 %; Myelocytes # (manual) 0.18 K/uL (0-0); Myelocytes % (manual) 3.5 %; Neutrophils # (manual) 3.83 K/uL (1.4-6.5); Neutrophils % (manual) 74.4 %; Ovalocytes 1+
[2022-01-28 09:07] LABS: Potassium 3.9 mmol/L (3.5-5.1)
[2022-01-28 09:08] LABS: BUN Creatinine Ratio 9.4 (10-20); Calcium 8.1 mg/dl (8.5-10.1); Creatinine Clr Calc Pharmacy 83.8 ml/min; Est GFR (African American) 83.8 ml/min; Est GFR (Non-African American) 72.3 ml/min; Magnesium 1.9 mg/dl (1.7-2.4)
--- NOTE | 2022-01-28 09:24 | Cardiology Consultation ---
Date of Consultation January 28, 2022 Assessment & Plan (1) Atrial fibrillation with RVR: (2) AML (acute myelogenous leukemia): The patient remains in a persistent atrial fibrillation however, the rates are better controlled today and I would continue his current medications. If he has recurrence of rapid atrial fibrillation then I would increase his digoxin to 0.25 mg daily. He is currently on heparin which I believe is okay while he is in the hospital however I would not send him home on anticoagulation due to the risk of bleeding. We will follow along with you during his hospital stay. History of Present Illness Attending Physician: Calvin Rodriguez MD History of Present Illness This is a 66-year-old male patient who was recently diagnosed with AML. He had a prolonged hospital stay at [facility] undergoing treatment for the AML. He has a history of paroxysmal atrial fibrillation and was last seen in our clinic in 2020. At that time he refused anticoagulation. Previously he had been started on warfarin and developed a large hematoma of his arm and he decided to forego further anticoagulation. During his recent hospital admission he went into per sistent atrial fibrillation and was seen by cardiology at [facility] who increased his metoprolol to 75 mg 3 times daily and added digoxin. The patient was not anticoagulated after hospital discharge due to low platelet counts. He was seen in follow-up by hematology on Friday and things were going well however, over the weekend he started become nauseated not feeling well and felt his heart racing. He came into the hospital with atrial fibrillation RVR. He was noted to be anemic with a hemoglobin of 7 and was given 1 unit of irradiated packed red blood cells. On the monitor he is in a persistent atrial fibrillation however the rates are better controlled than they were on admission. He is currently eating breakfast and appears to be comfortable. Allergies Allergy/AdvReac Type Severity Reaction Status Date / Time bee venom protein (honey bee) Allergy Mild SWELLING Verified 01/27/22 15:37 hydrocodone AdvReac Unknown NAUSEA Verified 01/27/22 15:37 Home Medications Medication Instructions Recorded Confirmed Type finasteride 5 mg tablet 5 mg PO HS 09/18/18 01/27/22 History flecainide 100 mg tablet 2 tab PO DIRECTED PRN 09/18/18 01/27/22 History metformin 500 mg tablet 1,000 mg PO BID 05/08/21 01/27/22 History omeprazole 20 mg capsule,delayed 20 mg PO QAM 05/08/21 01/27/22 History release rosuvastatin 10 mg tablet 10 mg PO QAM 05/08/21 01/27/22 History losartan 100 mg tablet 100 mg PO QAM 05/10/21 01/27/22 History tamsulosin 0.4 mg capsule (Flomax) 0.4 mg PO BID 05/10/21 01/27/22 History tadalafil 5 mg tablet 5 mg PO DAILY PRN 09/03/21 01/27/22 History acyclovir 400 mg tablet 400 mg PO BID 01/27/22 01/27/22 History digoxin 125 mcg (0.125 mg) tablet 125 mcg PO QAM 01/27/22 01/27/22 History metoprolol tartrate 50 mg tablet 75 mg PO TID 01/27/22 01/27/22 History multivitamin with minerals 1 tab PO QAM 01/27/22 01/27/22 History Patient History Medical History Atrial fibrillation Paroxysmal - very rare Per 09/21/20 cardio note- had a fib episode February 2020 after shingles vaccine and Jun 2020 - both episodes lasted several hours- resolved after taking Flecainide as prescribed (takes PRN per cardio instructions) [id number] score =3 for risk factors of age of 64, HTN, and DM2 per cardio records- patient not on AC secondary to bleeding complications in the past (Next cardio visit Sep 2021) Diabetes mellitus, type 2 DENIES NEUROPATHY Enlargement of aortic root Follows with Dr. Sibley Per December 2019 ECHO - Aortic root and proximal ascending aorta are mildly enlarged (4.3/4.1 cm respectively) GERD (gastroesophageal reflux disease) History of melanoma PAST HISTORY Hyperlipidemia Hypertension Surgical History History of biopsy of bladder History of cataract surgery bilt History of colonoscopy History of melanoma excision History of removal of cyst off finger Family History Other No family history of adverse response to anesthesia Social History Smoking Status: Never smoker Cigarettes Per Day: QUIT IN 1987; Second Hand Exposure: No; Do You Dip or Chew Tobacco: No; Tobacco Cessation Education Requested by Patient: No Hx Alcohol Use: No Hx Substance Use: No Preferred Language: Belarusian Communication Ability: Effective 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 All other 10 point review of systems are negative. Physical Exam Physical Exam: General: no acute distress and stated age Head: normocephalic, no masses, lesions, tenderness or abnormalities Eyes: conjunctiva are pink and non-injected, sclera clear Neck: supple, no adenopathy, no bruits, normal jugular venous pulse, no hepatojugular reflux Chest: normal shape and normal respiratory effort Lungs: clear to auscultation and percussion Cardiac Exam: - regular rate & rhythm, no murmurs gallops or rubs - normal S1, normal S2 Pulses: 2(+) throughout Abdomen: abdomen soft, non-tender, no abnormal masses and no hepatosplenomegaly Musculoskeletal: no gait disturbance, no joint inflammation, no deforming arthr itis Extremities: no edema and no cyanosis Neuro: grossly normal exam Results & Data ([facility]) Vital Signs (Past 12 Hours) Vital Signs Temp Pulse Pulse Resp BP BP Pulse Ox 01/28/22 08:57 36.8 C 88 16 129/73 95 01/28/22 02:54 36.8 C 86 16 135/88 90 01/28/22 02:52 36.9 C 79 18 135/88 94 01/28/22 02:16 36.4 C 74 16 138/98 92 01/28/22 01:16 36.4 C L 99 H 18 158/105 H 90 01/28/22 00:16 36.6 C 83 16 139/97 92 01/27/22 23:46 36.4 C L 82 16 156/111 H 90 01/27/22 23:31 36.6 C 83 18 152/111 H 91 01/27/22 23:15 36.4 C 84 16 159/102 H 91 01/27/22 23:11 36.6 C 83 18 152/111 H 90 01/27/22 22:10 85 Laboratory Results Laboratory Results - last 24 hr 01/27/22 01/27/22 01/27/22 15:10 15:10 15:10 WBC 5.11 RBC 2.26 L Hgb 7.1 L Hct 21.1 L MCV 93.4 MCH 31.4 MCHC 33.6 RDW Std Deviation 48.7 H RDW Coeff of Anna 14.6 H Plt Count 100 L MPV 11.3 H Absolute Nucleated RBC 0.30 H Nucleated RBC % (auto) 5.8 Neutrophils % (Manual) 73.7 Lymphocytes % (Manual) 7.9 Monocytes % (Manual) 17.5 Basophils % (Manual) Myelocytes % (Man) 0.9 Neutrophils # (Manual) 3.77 Total Absolute Neuts 3.77 Lymphocytes # (Manual) 0.40 L Total Abs Lymphocytes 0.40 L Monocytes # (Manual) 0.89 H Basophils # (Manual) Myelocytes # (Manual) 0.05 H Polychromasia 1+ Ovalocytes PT 11.1 INR 1.0 APTT 27.3 PTT Ratio 1.0 Sodium 137 Potassium 4.0 Chloride 104 Carbon Dioxide 27 Anion Gap 6 BUN 13 Creatinine 1.17 Est Cr Clr Drug Dosing 76.0 Est GFR ( Amer) 74.3 Est GFR (Non-Af Amer) 64.1 BUN/Creatinine Ratio 11.1 Glucose 140 H POC Glucose Estimat Average Glucose Hemoglobin A1c Lactate Calcium 8.6 Magnesium 1.4 L Total Bilirubin 0.3 AST 18 ALT 16 Alkaline Phosphatase 93 Troponin I High Sens 52.2 H* Total Protein 6.3 Albumin 3.5 Globulin 2.8 Albumin/Globulin Ratio 1.3 TSH Urine Color Urine Appearance Urine pH Ur Specific Maud Urine Protein Urine Glucose (UA) Urine Ketones Urine Blood Urine Nitrite Urine Bilirubin Urine Urobilinogen Ur Leukocyte Esterase Urine WBC (Auto) Urine RBC (Auto) U Hyaline Cast (Auto) U Epithel Cells (Auto) Urine Bacteria (Auto) Digoxin SARS-CoV-2, RNA, NAAT Blood Type Blood Type Recheck Antibody Screen Crossmatch 01/27/22 01/27/22 01/27/22 15:10 15:10 15:10 WBC RBC Hgb Hct MCV MCH MCHC RDW Std Deviation RDW Coeff of Anna Plt Count MPV Absolute Nucleated RBC Nucleated RBC % (auto) Neutrophils % (Manual) Lymphocytes % (Manual) Monocytes % (Manual) Basophils % (Manual) Myelocytes % (Man) Neutrophils # (Manual) Total Absolute Neuts Lymphocytes # (Manual) Total Abs Lymphocytes Monocytes # (Manual) Basophils # (Manual) Myelocytes # (Manual) Polychromasia Ovalocytes PT INR APTT PTT Ratio Sodium Potassium Chloride Carbon Dioxide Anion Gap BUN Creatinine Est Cr Clr Drug Dosing Est GFR ( Amer) Est GFR (Non-Af Amer) BUN/Creatinine Ratio Glucose POC Glucose Estimat Average Glucose Hemoglobin A1c Lactate 1.2 Calcium Magnesium Total Bilirubin AST ALT Alkaline Phosphatase Troponin I High Sens Total Protein Albumin Globulin Albumin/Globulin Ratio TSH 3.929 Urine Color Urine Appearance Urine pH Ur Specific Maud Urine Protein Urine Glucose (UA) Urine Ketones Urine Blood Urine Nitrite Urine Bilirubin Urine Urobilinogen Ur Leukocyte Esterase Urine WBC (Auto) Urine RBC (Auto) U Hyaline Cast (Auto) U Epithel Cells (Auto) Urine Bacteria (Auto) Digoxin 1.1 SARS-CoV-2, RNA, NAAT Blood Type Blood Type Recheck Antibody Screen Crossmatch 01/27/22 01/27/22 01/27/22 15:33 16:56 17:20 WBC RBC Hgb Hct MCV MCH MCHC RDW Std Deviation RDW Coeff of Anna Plt Count MPV Absolute Nucleated RBC Nucleated RBC % (auto) Neutrophils % (Manual) Lymphocytes % (Manual) Monocytes % (Manual) Basophils % (Manual) Myelocytes % (Man) Neutrophils # (Manual) Total Absolute Neuts Lymphocytes # (Manual) Total Abs Lymphocytes Monocytes # (Manual) Basophils # (Manual) Myelocytes # (Manual) Polychromasia Ovalocytes PT INR APTT PTT Ratio Sodium Potassium Chloride Carbon Dioxide Anion Gap BUN Creatinine Est Cr Clr Drug Dosing Est GFR ( Amer) Est GFR (Non-Af Amer) BUN/Creatinine Ratio Glucose POC Glucose Estimat Average Glucose Hemoglobin A1c Lactate Calcium Magnesium Total Bilirubin AST ALT Alkaline Phosphatase Troponin I High Sens Total Protein Albumin Globulin Albumin/Globulin Ratio TSH Urine Color Urine Appearance Urine pH Ur Specific Maud Urine Protein Urine Glucose (UA) Urine Ketones Urine Blood Urine Nitrite Urine Bilirubin Urine Urobilinogen Ur Leukocyte Esterase Urine WBC (Auto) Urine RBC (Auto) U Hyaline Cast (Auto) U Epithel Cells (Auto) Urine Bacteria (Auto) Digoxin SARS-CoV-2, RNA, NAAT NEGATIVE Blood Type O Positive Blood Type Recheck O Positive Antibody Screen NEGATIVE Crossmatch See Detail 01/27/22 01/27/22 01/27/22 20:12 20:36 20:54 WBC RBC Hgb 7.6 L Hct 22.6 L MCV MCH MCHC RDW Std Deviation RDW Coeff of Anna Plt Count MPV Absolute Nucleated RBC Nucleated RBC % (auto) Neutrophils % (Manual) Lymphocytes % (Manual) Monocytes % (Manual) Basophils % (Manual) Myelocytes % (Man) Neutrophils # (Manual) Total Absolute Neuts Lymphocytes # (Manual) Total Abs Lymphocytes Monocytes # (Manual) Basophils # (Manual) Myelocytes # (Manual) Polychromasia Ovalocytes PT INR APTT PTT Ratio Sodium Potassium Chloride Carbon Dioxide Anion Gap BUN Creatinine Est Cr Clr Drug Dosing Est GFR ( Amer) Est GFR (Non-Af Amer) BUN/Creatinine Ratio Glucose POC Glucose 164 H Estimat Average Glucose Hemoglobin A1c Lactate Calcium Magnesium Total Bilirubin AST ALT Alkaline Phosphatase Troponin I High Sens Total Protein Albumin Globulin Albumin/Globulin Ratio TSH Urine Color Yellow Urine Appearance Clear Urine pH 5.0 Ur Specific Maud 1.016 Urine Protein 1+ H Urine Glucose (UA) Negative Urine Ketones Negative Urine Blood Negative Urine Nitrite Negative Urine Bilirubin Negative Urine Urobilinogen Negative Ur Leukocyte Esterase Negative Urine WBC (Auto) 1-5 Urine RBC (Auto) 0-4 U Hyaline Cast (Auto) 5-10 H U Epithel Cells (Auto) 10-20 H Urine Bacteria (Auto) Negative Digoxin SARS-CoV-2, RNA, NAAT Blood Type Blood Type Recheck Antibody Screen Crossmatch 01/27/22 01/28/22 01/28/22 20:54 04:07 04:07 WBC RBC Hgb Hct MCV MCH MCHC RDW Std Deviation RDW Coeff of Anna Plt Count MPV Absolute Nucleated RBC Nucleated RBC % (auto) Neutrophils % (Manual) Lymphocytes % (Manual) Monocytes % (Manual) Basophils % (Manual) Myelocytes % (Man) Neutrophils # (Manual) Total Absolute Neuts Lymphocytes # (Manual) Total Abs Lymphocytes Monocytes # (Manual) Basophils # (Manual) Myelocytes # (Manual) Polychromasia Ovalocytes PT INR APTT PTT Ratio Sodium Potassium Chloride Carbon Dioxide Anion Gap BUN Creatinine Est Cr Clr Drug Dosing Est GFR ( Amer) Est GFR (Non-Af Amer) BUN/Creatinine Ratio Glucose POC Glucose Estimat Average Glucose 174 Hemoglobin A1c 7.7 H Lactate Calcium Magnesium Total Bilirubin AST ALT Alkaline Phosphatase Troponin I High Sens 55.7 H* 59.3 H* Total Protein Albumin Globulin Albumin/Globulin Ratio TSH Urine Color Urine Appearance Urine pH Ur Specific Maud Urine Protein Urine Glucose (UA) Urine Ketones Urine Blood Urine Nitrite Urine Bilirubin Urine Urobilinogen Ur Leukocyte Esterase Urine WBC (Auto) Urine RBC (Auto) U Hyaline Cast (Auto) U Epithel Cells (Auto) Urine Bacteria (Auto) Digoxin SARS-CoV-2, RNA, NAAT Blood Type Blood Type Recheck Antibody Screen Crossmatch 01/28/22 01/28/22 01/28/22 04:07 07:24 08:21 WBC 5.15 RBC 2.72 L Hgb 8.6 L Hct 24.9 L MCV 91.5 MCH 31.6 MCHC 34.5 RDW Std Deviation 48.7 H RDW Coeff of Anna 14.9 H Plt Count 100 L MPV 11.8 H Absolute Nucleated RBC 0.32 H Nucleated RBC % (auto) 6.3 Neutrophils % (Manual) 74.4 Lymphocytes % (Manual) 4.4 Monocytes % (Manual) 16.8 Basophils % (Manual) 0.9 Myelocytes % (Man) 3.5 Neutrophils # (Manual) 3.83 Total Absolute Neuts 3.83 Lymphocytes # (Manual) 0.23 L Total Abs Lymphocytes 0.23 L Monocytes # (Manual) 0.87 H Basophils # (Manual) 0.05 Myelocytes # (Manual) 0.18 H Polychromasia Ovalocytes 1+ PT INR APTT 76.0 H* PTT Ratio 2.8 Sodium Potassium Chloride Carbon Dioxide Anion Gap BUN Creatinine Est Cr Clr Drug Dosing Est GFR ( Amer) Est GFR (Non-Af Amer) BUN/Creatinine Ratio Glucose POC Glucose 135 H Estimat Average Glucose Hemoglobin A1c Lactate Calcium Magnesium Total Bilirubin AST ALT Alkaline Phosphatase Troponin I High Sens Total Protein Albumin Globulin Albumin/Globulin Ratio TSH Urine Color Urine Appearance Urine pH Ur Specific Maud Urine Protein Urine Glucose (UA) Urine Ketones Urine Blood Urine Nitrite Urine Bilirubin Urine Urobilinogen Ur Leukocyte Esterase Urine WBC (Auto) Urine RBC (Auto) U Hyaline Cast (Auto) U Epithel Cells (Auto) Urine Bacteria (Auto) Digoxin SARS-CoV-2, RNA, NAAT Blood Type Blood Type Recheck Antibody Screen Crossmatch 01/28/22 08:21 WBC RBC Hgb Hct MCV MCH MCHC RDW Std Deviation RDW Coeff of Anna Plt Count MPV Absolute Nucleated RBC Nucleated RBC % (auto) Neutrophils % (Manual) Lymphocytes % (Manual) Monocytes % (Manual) Basophils % (Manual) Myelocytes % (Man) Neutrophils # (Manual) Total Absolute Neuts Lymphocytes # (Manual) Total Abs Lymphocytes Monocytes # (Manual) Basophils # (Manual) Myelocytes # (Manual) Polychromasia Ovalocytes PT INR APTT PTT Ratio Sodium 138 Potassium 3.9 Chloride 104 Carbon Dioxide 28 Anion Gap 6 BUN 10 Creatinine 1.06 Est Cr Clr Drug Dosing 83.8 Est GFR ( Amer) 83.8 Est GFR (Non-Af Amer) 72.3 BUN/Creatinine Ratio 9.4 L Glucose 126 H POC Glucose Estimat Average Glucose Hemoglobin A1c Lactate Calcium 8.1 L Magnesium 1.9 Total Bilirubin AST ALT Alkaline Phosphatase Troponin I High Sens Total Protein Albumin Globulin Albumin/Globulin Ratio TSH Urine Color Urine Appearance Urine pH Ur Specific Maud Urine Protein Urine Glucose (UA) Urine Ketones Urine Blood Urine Nitrite Urine Bilirubin Urine Urobilinogen Ur Leukocyte Esterase Urine WBC (Auto) Urine RBC (Auto) U Hyaline Cast (Auto) U Epithel Cells (Auto) Urine Bacteria (Auto) Digoxin SARS-CoV-2, RNA, NAAT Blood Type Blood Type Recheck Antibody Screen Crossmatch Medications Administered Current Inpatient Medications Acetaminophen (Acetaminophen 325 Mg Tab) 650 mg PO Q4H PRN PRN Reason: Pain or Fever Stop: 02/26/22 18:36 Acyclovir (Acyclovir 400 Mg Tab) 400 mg PO BID ANA MARÍA Stop: 02/26/22 20:59 Last Admin: 01/28/22 08:59 Dose: 400 mg Documented by: Dextrose (Dextrose 50% 50 Ml Syringe) 25 - 50 ml IV UD PRN; Protocol PRN Reason: Hypoglycemia Protocol Stop: 02/26/22 18:36 Digoxin (Digoxin 0.125 Mg Tab) 0.125 mg PO DAILY@1600 ANA MARÍA Stop: 02/27/22 15:59 Finasteride (Finasteride 5 Mg Tab) 5 mg PO HS ANA MARÍA Stop: 02/26/22 20:59 Last Admin: 01/27/22 20:52 Dose: 5 mg Documented by: Glucagon (Glucagon For Inj 1 Mg Vial) 1 mg SQ UD PRN; Protocol PRN Reason: Hypoglycemia Protocol Stop: 02/26/22 18:36 Glucose (Glucose 10 Tabs/Tube) 4 - 8 tabs PO UD PRN; Protocol PRN Reason: Hypoglycemia Protocol Stop: 02/26/22 18:36 Glucose (Glucose 40% Gel 15 Gm Tube) 15 - 30 gm PO UD PRN; Protocol PRN Reason: Hypoglycemia Protocol Stop: 02/26/22 18:36 Heparin Sodium (Porcine) (Heparin 100 Unit/Ml 5ml Flush) 5 ml FLUSH PRN PRN PRN Reason: Flush Stop: 02/26/22 23:31 Last Admin: 01/28/22 03:03 Dose: 5 ml Documented by: Heparin Sodium/Dextrose (Heparin Sodium/Dextrose) 25,000 units in 500 mls @ 30 mls/hr IV .[id number] [facility]; Protocol Stop: 02/26/22 18:36 Last Titration: 01/28/22 07:03 Dose: 1,500 units/hr, 30 mls/hr Documented by: Promethazine HCl 12.5 mg/ (Sodium Chloride) 50.5 mls @ 202 mls/hr IV Q6H PRN PRN Reason: Nausea And Vomiting Stop: 02/26/22 23:50 Last Admin: 01/28/22 08:56 Dose: 202 mls/hr Documented by: Insulin Aspart (Insulin Aspart Per Unit) 0 units SC ACHS [facility] Stop: 02/26/22 20:59 Last Admin: 01/28/22 08:15 Dose: Not Given Documented by: Losartan Potassium (Losartan Potassium 50 Mg Tab) 100 mg PO QAM [facility] Stop: 02/27/22 08:59 Last Admin: 01/28/22 08:59 Dose: 100 mg Documented by: Magnesium Oxide (Magnesium Oxide 400 Mg Tab) 400 mg PO BID [facility] Stop: 02/26/22 20:59 Last Admin: 01/28/22 08:59 Dose: 400 mg Documented by: Melatonin (Melatonin 3 Mg Tab) 3 mg PO HS PRN PRN Reason: Sleep Stop: 02/26/22 21:51 Last Admin: 01/27/22 22:38 Dose: 3 mg Documented by: Metoprolol Tartrate (Metoprolol Tartrate 25 Mg Tab) 75 mg PO TID [facility] Stop: 02/26/22 20:59 Last Admin: 01/28/22 08:59 Dose: 75 mg Documented by: Miscellaneous (Carbohydrates For Hypoglycemia ) 15 - 30 gm PO UD PRN PRN Reason: Hypoglycemia Protocol Stop: 02/26/22 18:36 Pantoprazole Sodium (Pantoprazole 40 Mg Tab) 40 mg PO QAM [facility] Stop: 02/27/22 08:59 Last Admin: 01/28/22 09:00 Dose: 40 mg Documented by: Rosuvastatin Calcium (Rosuvastatin Calcium 10 Mg Tab) 10 mg PO QAM [facility] Stop: 02/27/22 08:59 Last Admin: 01/28/22 09:00 Dose: 10 mg Documented by: Tamsulosin HCl (Tamsulosin Hcl 0.4 Mg Cap) 0.4 mg PO BID [facility] Stop: 02/26/22 20:59 Last Admin: 01/28/22 08:59 Dose: 0.4 mg Documented by:
[2022-01-28] MEDS ORDERED: METOPROLOL TARTRATE 1 MG/ML VIAL IV STA (10:05)
[2022-01-28 11:52] LABS: Partial Thromboplastin Time 55.3 Seconds (21.0-31.0)
[2022-01-28] MEDS: HEPARIN SODIUM/DEXTROSE 25,000 UNITS/500 ML BAG IV SCH (14:51)
[2022-01-28] MEDS ORDERED: FUROSEMIDE 40 MG/4 ML VIAL IV ONE (15:49)
[2022-01-28] MEDS ORDERED: DIGOXIN 0.125 MG TAB PO SCH ×2 (16:00)
--- NOTE | 2022-01-28 17:48 | Hospitalist Progress Note ---
Date of Service January 28, 2022 Assessment & Plan (1) Atrial fibrillation with RVR: Plan: 66-year-old male with history of newly diagnosed AML, on chemotherapy, pancytopenia secondary to chemotherapy Paroxysmal atrial fibrillation not on anticoagulation, diabetes type 2 on metformin, hypertension, other problems noted below presenting with shortness of breath x2 days. SHORTNESS OF BREATH LIKELY SECONDARY TO SYMPTOMATIC ANEMIA AND ATRIAL FIBRILLATION AND RVR Not in distress Currently on room air, O2 sats more than 90% Management per below SYMPTOMATIC ANEMIA PANCYTOPENIA SECONDARY TO CHEMOTHERAPY, NEWLY DIAGNOSED AML Underwent induction chemotherapy as an inpatient and [facility] last month Hemoglobin 7.1, 1 unit packed RBCs irradiated ordered Repeat H&H 8.6 discussed with [facility], does not recommend further transfusion monitor Hg ATRIAL FIBRILLATION IN RVR HISTORY OF PAROXYSMAL ATRIAL FIBRILLATION NOT ON ANTICOAGULATION During recent admission to [facility], metoprolol tartrate increased to 75 mg 3 times daily Also on digoxin 125 mcg daily Continue above for now, hopefully blood transfusion will improve heart rates Patient may need medication adjustment Currently platelet level 100,000, will initiate anticoagulation with heparin dri p Echocardiogram ordered Cardiology service consulted 01/28 echo noted Digoxin increased to 200mcg daily continue Heparin for now DIABETES TYPE 2 Usually on metformin Hold for now Insulin sliding scale ordered HYPERTENSION BP improved Continue losartan BPH Continue tamsulosin and finasteride DVT prophylaxis IV heparin Disposition Anticipate discharge to home when medically stable plan of care discussed with patient and his Danial at bedside in detail and at length all questions answered They are understanding, agreeable, comfortable with the plan of care Admission and Anticipated Discharge Date Admission Date: January 27, 2022 Subjective ff up for anemia, a fib RVR etc seen resting in bed, comfortable sitting up smiling states he feels improved today overall still has some dyspnea but less no cough, fever/chills had some palpitations this AM, coinciding with a fib RVR episode resolved with Lopressor IV no other symptoms Review of Systems Review of Systems: all noted and negative except for above Physical Exam Physical Exam: General- oriented x 3, not in distress, speaks in sentences with no effort or accessory muscle use Eyes- anicteric Neck- no JVD Lungs- faint rales at the bases Heart- normal rate,irregularly irregular rhythm; no murmurs Abdomen- normal bowel sounds, nondistended, soft, nontender Extremities- mild pretibial edema, no calf tenderness Neuro- alert, oriented x 3; no gross focal neurologic deficits Skin- warm & dry Results & Data Results & Data ([facility]) Vital Signs (Past 12 Hours) Vital Signs Temp Pulse Pulse Resp BP Pulse Ox 01/28/22 16:00 36.5 C 83 18 125/65 97 01/28/22 15:37 108 H 01/28/22 11:30 36.8 C 76 18 118/71 96 01/28/22 10:21 138 H 01/28/22 08:57 36.8 C 88 16 129/73 95 01/28/22 07:00 82 all noted and reviewed including below
[2022-01-28] MEDS: FINASTERIDE 5 MG TAB PO SCH (20:28)
[2022-01-29 06:15] LABS: Hematocrit (blood only) 23.6 % (42-52); Hemoglobin 8.1 g/dL (14.0-18.0); Mean Corpuscular Hemoglobin 31.5 pg (25-34); Mean Corpuscular Hgb Conc 34.3 g/dL (32-36); Mean Corpuscular Volume 91.8 fL (80-100); Mean Platelet Volume 11.8 fL (7.4-10.4); Nucleated RBC # (auto) 0.34 K/uL (0-0); Nucleated RBC % (auto) 7.5 %; Platelet Count 102 K/uL (130-400); RDW Coefficient of Variation 15.3 % (11.5-14.5); Red Blood Count 2.57 M/uL (4.7-6.1); White Blood Count 4.49 K/uL (4.8-10.8)
[2022-01-29 06:29] LABS: Partial Thromboplastin Ratio 2.2
[2022-01-29] MEDS: HEPARIN SODIUM/DEXTROSE 25,000 UNITS/500 ML BAG IV SCH (06:41)
[2022-01-29 07:01] LABS: ALC (manual) 0.66 K/uL (1.2-3.4); ANC (manual) 3.01 K/uL (1.4-6.5); Basophils # (manual) 0.08 K/uL (0-0.2); Basophils % (manual) 1.7 %; Lymphocytes # (manual) 0.66 K/uL (1.2-3.4); Lymphocytes % (manual) 14.8 %; Monocytes # (manual) 0.74 K/uL (0.11-0.59); Monocytes % (manual) 16.5 %; Neutrophils # (manual) 3.01 K/uL (1.4-6.5); RBC Morphology Unremarkable
[2022-01-29] MEDS: INSULIN ASPART PER UNIT SC SCH ×2 (07:43→11:29)
[2022-01-29] MEDS: MAGNESIUM OXIDE 400 MG TAB PO SCH (08:09)
[2022-01-29] MEDS: METOPROLOL TARTRATE 25 MG TAB PO SCH (08:09)
[2022-01-29] MEDS: ROSUVASTATIN CALCIUM 10 MG TAB PO SCH (08:09)
[2022-01-29] MEDS: ACYCLOVIR 400 MG TAB PO SCH (08:09)
[2022-01-29] MEDS: TAMSULOSIN HCL 0.4 MG CAP PO SCH (08:10)
[2022-01-29] MEDS: PANTOprazole 40 MG TAB PO SCH (08:10)
[2022-01-29] MEDS: LOSARTAN POTASSIUM 50 MG TAB PO SCH (08:10)
--- NOTE | 2022-01-29 09:10 | Cardiology Progress Note ---
Date of Service January 29, 2022 Assessment & Plan (1) Atrial fibrillation with RVR: (2) AML (acute myelogenous leukemia): Plan: The patient remains in persistent atrial fibrillation. Heart rates have improved and are generally in the 90 bpm range. He had his first increased dose of digoxin late yesterday afternoon. I would continue his current dosing and medications for now. He is anxious to return home. He does have an appointment at [place] at the [facility] From a cardiology standpoint believe that he can be discharged so that he can follow-up with his oncologist. In regard to anticoagulation as I previously indicated, I believe he is at risk for bleeding and I would not continue anticoagulation at discharge until he is cleared by his float phlebotomist for long-term anticoagulation regarding his atrial fibrillation. Admission and Anticipated Discharge Date Admission Date: January 27, 2022 Subjective The patient is feeling better. He is sitting in a chair comfortably. Review of Systems Review of Systems: Review of Systems: See HPI for pertinent positives. All other 10 point review of systems are negative. Physical Exam Physical Exam: General: no acute distress and stated age Head: normocephalic, no masses, lesions, tenderness or abnormalities Eyes: conjunctiva are pink and non-injected, sclera clear Neck: supple, no adenopathy, no bruits, normal jugular venous pulse, no hepatojugular reflux Chest: normal shape and normal respiratory effort Lungs: clear to auscultation and percussion Cardiac Exam: - irregular rate & rhythm, no murmurs gallops or rubs - normal S1, normal S2 Pulses: 2(+) throughout Abdomen: abdomen soft, non-tender, no abnormal masses and no hepatosplenomegaly Musculoskeletal: no gait disturbance, no joint inflammation, no deforming arthritis Extremities: no edema and no cyanosis Neuro: grossly normal exam Results & Data ([facility]) Vital Signs (Past 12 Hours) Vital Signs Temp Pulse Pulse Resp BP Pulse Ox 01/29/22 07:00 97 H 01/29/22 06:58 36.8 C 83 16 137/99 96 01/29/22 03:15 36.8 C 78 18 127/79 96 01/28/22 23:27 112 H 01/28/22 22:50 36.6 C 77 18 136/83 95 Laboratory Results Laboratory Results - last 24 hr 01/27/22 01/28/22 01/28/22 15:33 08:21 11:06 WBC RBC Hgb Hct MCV MCH MCHC RDW Std Deviation RDW Coeff of Anna Plt Count MPV Absolute Nucleated RBC Nucleated RBC % (auto) Neutrophils % (Manual) Lymphocytes % (Manual) Monocytes % (Manual) Basophils % (Manual) Neutrophils # (Manual) Total Absolute Neuts Lymphocytes # (Manual) Total Abs Lymphocytes Monocytes # (Manual) Basophils # (Manual) RBC Morphology APTT 55.3 H* PTT Ratio 2.0 Sodium 138 Potassium 3.9 Chloride 104 Carbon Dioxide 28 Anion Gap 6 BUN 10 Creatinine 1.06 Est Cr Clr Drug Dosing 83.8 Est GFR ( Amer) 83.8 Est GFR (Non-Af Amer) 72.3 BUN/Creatinine Ratio 9.4 L Glucose 126 H POC Glucose Calcium 8.1 L Magnesium 1.9 Crossmatch See Detail 01/28/22 01/28/22 01/28/22 11:14 16:28 20:20 WBC RBC Hgb Hct MCV MCH MCHC RDW Std Deviation RDW Coeff of Anna Plt Count MPV Absolute Nucleated RBC Nucleated RBC % (auto) Neutrophils % (Manual) Lymphocytes % (Manual) Monocytes % (Manual) Basophils % (Manual) Neutrophils # (Manual) Total Absolute Neuts Lymphocytes # (Manual) Total Abs Lymphocytes Monocytes # (Manual) Basophils # (Manual) RBC Morphology APTT PTT Ratio Sodium Potassium Chloride Carbon Dioxide Anion Gap BUN Creatinine Est Cr Clr Drug Dosing Est GFR ( Amer) Est GFR (Non-Af Amer) BUN/Creatinine Ratio Glucose POC Glucose 194 H 120 H 118 H Calcium Magnesium Crossmatch 01/29/22 01/29/22 01/29/22 05:31 05:31 07:16 WBC 4.49 L RBC 2.57 L Hgb 8.1 L Hct 23.6 L MCV 91.8 MCH 31.5 MCHC 34.3 RDW Std Deviation 50.0 H RDW Coeff of Anna 15.3 H Plt Count 102 L MPV 11.8 H Absolute Nucleated RBC 0.34 H Nucleated RBC % (auto) 7.5 Neutrophils % (Manual) 67.0 Lymphocytes % (Manual) 14.8 Monocytes % (Manual) 16.5 Basophils % (Manual) 1.7 Neutrophils # (Manual) 3.01 Total Absolute Neuts 3.01 Lymphocytes # (Manual) 0.66 L Total Abs Lymphocytes 0.66 L Monocytes # (Manual) 0.74 H Basophils # (Manual) 0.08 RBC Morphology Unremarkable APTT 60.0 H* PTT Ratio 2.2 Sodium Potassium Chloride Carbon Dioxide Anion Gap BUN Creatinine Est Cr Clr Drug Dosing Est GFR ( Amer) Est GFR (Non-Af Amer) BUN/Creatinine Ratio Glucose POC Glucose 111 H Calcium Magnesium Crossmatch Medications Administered Current Inpatient Medications Acetaminophen (Acetaminophen 325 Mg Tab) 650 mg PO Q4H PRN PRN Reason: Pain or Fever Stop: 02/26/22 18:36 Acyclovir (Acyclovir 400 Mg Tab) 400 mg PO BID ANA MARÍA Stop: 02/26/22 20:59 Last Admin: 01/29/22 08:09 Dose: 400 mg Documented by: Dextrose (Dextrose 50% 50 Ml Syringe) 25 - 50 ml IV UD PRN; Protocol PRN Reason: Hypoglycemia Protocol Stop: 02/26/22 18:36 Digoxin (Digoxin 0.125 Mg Tab) 0.25 mg PO DAILY@1600 ANA MARÍA Stop: 02/27/22 15:59 Last Admin: 01/28/22 15:37 Dose: 0.25 mg Documented by: Finasteride (Finasteride 5 Mg Tab) 5 mg PO HS ANA MARÍA Stop: 02/26/22 20:59 Last Admin: 01/28/22 20:28 Dose: 5 mg Documented by: Glucagon (Glucagon For Inj 1 Mg Vial) 1 mg SQ UD PRN; Protocol PRN Reason: Hypoglycemia Protocol Stop: 02/26/22 18:36 Glucose (Glucose 10 Tabs/Tube) 4 - 8 tabs PO UD PRN; Protocol PRN Reason: Hypoglycemia Protocol Stop: 02/26/22 18:36 Glucose (Glucose 40% Gel 15 Gm Tube) 15 - 30 gm PO UD PRN; Protocol PRN Reason: Hypoglycemia Protocol Stop: 02/26/22 18:36 Heparin Sodium (Porcine) (Heparin 100 Unit/Ml 5ml Flush) 5 ml FLUSH PRN PRN PRN Reason: Flush Stop: 02/26/22 23:31 Last Admin: 01/28/22 03:03 Dose: 5 ml Documented by: Heparin Sodium/Dextrose (Heparin Sodium/Dextrose) 25,000 units in 500 mls @ 30 mls/hr IV .[id number] ANA MARÍA; Protocol Stop: 02/26/22 18:36 Last Titration: 01/29/22 06:53 Dose: 1,500 units/hr, 30 mls/hr Documented by: Promethazine HCl 12.5 mg/ (Sodium Chloride) 50.5 mls @ 202 mls/hr IV Q6H PRN PRN Reason: Nausea And Vomiting Stop: 02/26/22 23:50 Last Infusion: 01/28/22 09:45 Dose: Infused Documented by: Insulin Aspart (Insulin Aspart Per Unit) 0 units SC ACHS [facility] Stop: 02/26/22 20:59 Last Admin: 01/29/22 07:43 Dose: Not Given Documented by: Losartan Potassium (Losartan Potassium 50 Mg Tab) 100 mg PO QAM [facility] Stop: 02/27/22 08:59 Last Admin: 01/29/22 08:10 Dose: 100 mg Documented by: Magnesium Oxide (Magnesium Oxide 400 Mg Tab) 400 mg PO BID [facility] Stop: 02/26/22 20:59 Last Admin: 01/29/22 08:09 Dose: 400 mg Documented by: Melatonin (Melatonin 3 Mg Tab) 3 mg PO HS PRN PRN Reason: Sleep Stop: 02/26/22 21:51 Last Admin: 01/27/22 22:38 Dose: 3 mg Documented by: Metoprolol Tartrate (Metoprolol Tartrate 25 Mg Tab) 75 mg PO TID [facility] Stop: 02/26/22 20:59 Last Admin: 01/29/22 08:09 Dose: 75 mg Documented by: Miscellaneous (Carbohydrates For Hypoglycemia ) 15 - 30 gm PO UD PRN PRN Reason: Hypoglycemia Protocol Stop: 02/26/22 18:36 Pantoprazole Sodium (Pantoprazole 40 Mg Tab) [facility] Stop: 02/27/22 08:59 Last Admin: 01/29/22 08:10 Dose: 40 mg Documented by: Rosuvastatin Calcium (Rosuvastatin Calcium 10 Mg Tab) 10 mg PO QAM [facility] Stop: 02/27/22 08:59 Last Admin: 01/29/22 08:09 Dose: 10 mg Documented by: Tamsulosin HCl (Tamsulosin Hcl 0.4 Mg Cap) 0.4 mg PO BID [facility] Stop: 02/26/22 20:59 Last Admin: 01/29/22 08:10 Dose: 0.4 mg Documented by:
[2022-01-29] MEDS: HEPARIN 100 UNIT/ML 5ML FLUSH FLUSH PRN (10:38)
--- NOTE | 2022-01-31 16:48 | Hospitalist Progress Note ---
Date of Service January 31, 2022 delayed entry date of service 01/29 Assessment & Plan (1) Atrial fibrillation with RVR: Plan: 66-year-old male with history of newly diagnosed AML, on chemotherapy, pancytopenia secondary to chemotherapy Paroxysmal atrial fibrillation not on anticoagulation, diabetes type 2 on metformin, hypertension, other problems noted below presenting with shortness of breath x2 days. SHORTNESS OF BREATH LIKELY SECONDARY TO SYMPTOMATIC ANEMIA AND ATRIAL FIBRILLATION AND RVR Not in distress on room air, O2 sats more than 90% CXR: A right port catheter is seen. Cardiomegaly is noted. The lungs are clear. No evidence of pleural effusion or pneumothorax. IMPRESSION: No acute chest disease. Management per below SYMPTOMATIC ANEMIA PANCYTOPENIA SECONDARY TO CHEMOTHERAPY, NEWLY DIAGNOSED AML [facility] Hemoglobin 7.1, 1 unit packed RBCs irradiated ordered Repeat H&H 8.6 discussed with [facility], does not recommend further transfusion monitor Hg ATRIAL FIBRILLATION IN RVR HISTORY OF PAROXYSMAL ATRIAL FIBRILLATION NOT ON ANTICOAGULATION During recent admission to [facility], metoprolol tartrate increased to 75 mg 3 times daily Also on digoxin 125 mcg daily 01/29 [employer] consulted echo noted Digoxin increased to 200mcg daily Cardiology does not recommend anticoagulation at this point due to risk of bleeding ff up with [facility] in 2 weeks DIABETES TYPE 2 Usually on metformin HYPERTENSION BP improved Continue losartan BPH Continue tamsulosin and finasteride DVT prophylaxis IV heparin given Disposition d/c to home ff up with PCP in 1 week ff up with [facility] in 2 weeks plan of care discussed with patient in detail all questions answered he is understanding, agreeable, comfortable with the plan of care Admission and Anticipated Discharge Date Admission Date: January 27, 2022 Subjective ff up for a fib, anemia, etc seen resting in bed, sitting up in good spirits, comfortable states he feels fine overall shortness of breath resolved no chest pain, dyspnea, palpitations, dizziness no bleeding no other symptoms states he is ready and would like to be discharged today Review of Systems Review of Systems: all noted and negative except for above Physical Exam Physical Exam: General- oriented x 3, not in distress, speaks in sentences with no effort or accessory muscle use Eyes- anicteric Neck- no JVD Lungs- clear breath sounds bilaterally, no rales/wheezes Heart- normal rate, regular rhythm; no murmurs Abdomen- normal bowel sounds, nondistended, soft, nontender Extremities- no pretibial edema, no calf tenderness Neuro- alert, oriented x 3; no gross focal neurologic deficits Skin- warm & dry Results & Data Results & Data ([facility]) Vital Signs (Past 12 Hours) all noted and reviewed including below
--- NOTE | 2022-01-31 16:48 | Discharge Summary ---
Date of Service January 31, 2022 delayed entry date of service 01/29 Admission HPI Per Admitting Provider 66-year-old male with history of newly diagnosed AML, on chemotherapy, pancytopenia secondary to chemotherapy Paroxysmal atrial fibrillation not on anticoagulation, diabetes type 2 on me tformin, hypertension, other problems noted below presenting with shortness of breath x2 days. Patient was recently admitted for about 50 days in [facility] for induction chemotherapy, in light of his newly diagnosed AML. While hospitalized, patient had atrial fibrillation and rapid ventricular response, cardiology service consulted, digoxin 125 mcg daily started and metopr olol tartrate increased to 75 mg 3 times daily. At that time, anticoagulation was not initiated secondary to patient's thrombocytopenia of 30,000's. Patient was discharged and followed up with hematology oncology 2 days ago. Patient was feeling fine and CBC was found to be stable. States yesterday the patient started to have sensation of shortness of breath and heart racing. Denies chest pain, dizziness, fevers or chills, abdominal pain. Does have occasional nausea. He presented to the ER today due to persistence of shortness of breath. At the ER, patient found to be in atrial fibrillation, heart rate 110-to 120s. BP elevated. CBC showed hemoglobin of 7.1, platelet count of 100,000, WBC 5000. Magnesium 1.4. He was given oral metoprolol and magnesium IV. 1 unit irradiated packed RBCs also ordered. On exam, patient was seen with patient's at the bedside. Patient reports he is starting to feel improved compared to initial presentation. No active chest pain, shortness of breath, palpitations, dizziness, nausea vomiting, abdominal pain. Admission Exam Per Admitting Provider General- oriented x 3, not in distress, speaks in sentences with no effort or accessory muscle use Head- atraumatic Eyes- PERRL, EOMI, anicteric ENT- oropharynx clear Neck- supple, no JVD, no adenopathy, no thyromegaly; carotids +2/2, no bruits appreciated Lungs- clear to auscultation bilaterally, no rales/wheezes Port in place, right anterior chest wall, no erythema/edema/hematoma/discharge Heart-mild tachycardia 110s, irregularly irregular rhythm no murmur, no gallop, no rub appreciated Abdomen- normal bowel sounds, nondistended, soft, nontender, no masses or hepatosplenomegaly Extremities-trace pretibial edema right greater than left on the lower legs, no calf tenderness; peripheral pulses intact Neuro- alert, oriented x 3; CN 2-12 grossly intact; motor 5/5 bilaterally;sensation 100% on all extremities; no other gross focal neurologic deficits Skin- warm & dry Principal Diagnosis ANEMIA HISTORY OF AML, ON CHEMOTHERAPY ATRIAL FIBRILLATION IN RAPID VENTRICULAR RESPONSE Discharge Exam General- oriented x 3, not in distress, speaks in sentences with no effort or accessory muscle use Eyes- anicteric Neck- no JVD Lungs- clear breath sounds bilaterally, no rales/wheezes Heart- normal rate, regular rhythm; no murmurs Abdomen- normal bowel sounds, nondistended, soft, nontender Extremities- no pretibial edema, no calf tenderness Neuro- alert, oriented x 3; no gross focal neurologic deficits Skin- warm & dry Discharge Data Allergies Allergy/AdvReac Type Severity Reaction Status Date / Time bee venom protein (honey bee) Allergy Mild SWELLING Verified 01/27/22 15:37 hydrocodone AdvReac Unknown NAUSEA Verified 01/27/22 15:37 Consultations 01/27/22 16:56 ED Decision to Admit Stat 01/27/22 18:37 Consult Cardiology Routine Hospital Course (1) Atrial fibrillation with RVR: 66-year-old male with history of newly diagnosed AML, on chemotherapy, pancytopenia secondary to chemotherapy Paroxysmal atrial fibrillation not on anticoagulation, diabetes type 2 on metformin, hypertension, other problems noted below presenting with shortness of breath x2 days. SHORTNESS OF BREATH LIKELY SECONDARY TO SYMPTOMATIC ANEMIA AND ATRIAL FIBRILLATION AND RVR Not in distress on room air, O2 sats more than 90% CXR: A right port catheter is seen. Cardiomegaly is noted. The lungs are clear. No evidence of pleural effusion or pneumothorax. IMPRESSION: No acute chest disease. Management per below SYMPTOMATIC ANEMIA PANCYTOPENIA SECONDARY TO CHEMOTHERAPY, NEWLY DIAGNOSED AML Underwent induction chemotherapy as an inpatient and [facility] last month Hemoglobin 7.1, 1 unit packed RBCs irradiated ordered Repeat H&H 8.6 discussed with [facility], does not recommend further transfusion monitor Hg ATRIAL FIBRILLATION IN RVR HISTORY OF PAROXYSMAL ATRIAL FIBRILLATION NOT ON ANTICOAGULATION During recent admission to [facility], metoprolol tartrate increased to 75 mg 3 times daily Also on digoxin 125 mcg daily 01/29 [employer] consulted echo noted Digoxin increased to 200mcg daily Cardiology does not recommend anticoagulation at this point due to risk of bleeding ff up with [facility] in 2 weeks DIABETES TYPE 2 Usually on metformin HYPERTENSION BP improved Continue losartan BPH Continue tamsulosin and finasteride DVT prophylaxis IV heparin given Disposition d/c to home ff up with PCP in 1 week ff up with [facility] in 2 weeks plan of care discussed with patient in detail all questions answered he is understanding, agreeable, comfortable with the plan of care Total Time Total Time Spent Total Time Spent (In Minutes): >30 MINUTES Discharge Plan Discharge Items Patient Disposition: Home - Self-Care Reason For Visit: ANEMIA,AFIB IN RVR Discharge Diagnosis: Atrial fibrillation and rapid ventricular response Anemia, acute myeloid leukemia on chemotherapy Activity: Resume your previous activity Activity Comment: Increase activity gradually as tolerated Lifting: Wait until after follow-up appointment Exercise/Sports: Wait until after follow-up appointment Driving/Machine Use: No driving until reevaluated and allowed by primary care physician Non-emergency contact: Primary Care Provider Call non-emergency contact if: you have any medication questions, your symptoms worsen, your pain is not controlled, your pain is worsening, your pain is unusual for you, your pain is concerning for you and you have a fever Follow-up/Referrals: Allyssa Luo [Other] (Date & Time 02/01/2022 10:45 AM Provider Nurse Lab Hem/Onc [facility] Hematology Oncology [facility] ) Anthony Rico MD [Primary Care Provider] - (Date & Time 02/06/2022 11:00 AM Provider Anthony Rico III, MD Department [facility] ) Diet: Carb Consistent or DM2 and Heart Healthy Addtl Attending Provider Instructions: PLEASE REFER TO YOUR NEW MEDICATION LIST AND FOLLOW INSTRUCTIONS CAREFULLY. YOUR NEW MEDICATIONS INCLUDE: Digoxin has been increased from 125 to 250 mcg daily. Magnesium supplement. PLEASE CALL YOUR PRIMARY CARE PHYSICIAN OR RETURN TO THE ER IF WITH WORSENING OF SYMPTOMS, INCLUDING Shortness of breath, chest pain, palpitations, dizziness, fevers or chills, weakness, bleeding. FOLLOW UP WITH PRIMARY CARE PHYSICIAN in 1 week. Follow-up with cardiology clinic in 2 weeks. Follow-up with hematology/oncology clinic as scheduled. Pending Studies at Discharge: No Stand-Alone Forms: [place], Smoking Cessation Medications and DC Order Prescriptions: New digoxin [Digitek] 125 mcg (0.125 mg) Tablet 250 mcg PO DAILY@1600 Qty: 30 RF: 2 magnesium oxide 400 mg (241.3 mg magnesium) Tablet 400 mg PO BID Qty: 14 RF: 0 Continued flecainide 100 mg Tablet 2 tab PO DIRECTED PRN (Reason: Atrial Fibrillation) RF: 0 finasteride 5 mg Tablet 5 mg PO HS RF: 0 tadalafil 5 mg tablet 5 mg PO DAILY PRN (Reason: Erectile Dysfunction) RF: 0 acyclovir 400 mg tablet 400 mg PO BID RF: 0 metoprolol tartrate 50 mg tablet 75 mg PO TID RF: 0 multivitamin with minerals Tablet 1 tab PO QAM RF: 0 metformin 500 mg Tablet 1,000 mg PO BID RF: 0 omeprazole 20 mg Capsule,Delayed Release(Dr/Ec) 20 mg PO QAM RF: 0 rosuvastatin 10 mg Tablet 10 mg PO QAM RF: 0 tamsulosin [Flomax] 0.4 mg Capsule 0.4 mg PO BID RF: 0 losartan 100 mg Tablet 100 mg PO QAM RF: 0 Discontinued digoxin 125 mcg (0.125 mg) tablet 125 mcg PO QAM RF: 0 Discharge Orders: Discharge Order (Routine); Ordered 01/29/22 Ordered By: Calvin Borjas/Other Patient Handouts: Managing Type 2 Diabetes Admission Data Admit Date/Time: 01/27/22 17:20 Attending Provider: Calvin Rodriguez Admit Provider: Calvin Rodriguez Primary Care Provider: Anthony Rico Other Providers: Calvin Rodriguez ; Jeffery Chadwick Other Interventions: Discharge Summary Assessment (RN) Last Done: 01/29/22 11:03
== END 2022-01-29 12:15 | disposition home or self-care (01) | DRG 308 ==
LOC: ED 14:39 → 2E 17:20

== ENCOUNTER 2022-02-05 08:06 | Inpatient (IN) ==
--- NOTE | 2022-02-05 08:22 | Emergency Department Note ---
History of Present Illness General Chief complaint: Shortness of Breath/Dyspnea Time Seen by Provider: 02/05/22 08:11 Source: patient Mode of arrival: ambulatory Limitations: no limitations History of Present Illness Provider complaint: shortness of breath Onset (ago): day(s) 2 Treatments prior to arrival: none This is a 66-year-old male presents emerged from complaining of increased shortness of breath over the last 2 days. He states he began noticing this particular with trying to lay down. He states last night he was unable to sleep. Patient was recently admitted due to a new finding of atrial fibrillation with RVR. He did receive a blood transfusion at this time. Also within the last several months patient with a new diagnosis of AML, was admitted at [facility] for an extended period of time and did receive multiple blood transfusions at that time also. Patient denies any accompanying chest pain/pressure, palpitations, change in cough, fevers, chills. Patient is being treated with chemotherapy. He states he still does not have a great appetite but it does not significantly decrease. He states he is trying to stay well- hydrated. Patient states he does have minimal leg swelling but that is unchanged. He states the first 2 days he went home he was feeling well, now over the last 2 days he was feeling worse again because of the breathing. Patient was recently started on digoxin and metoprolol was increased to control the atrial fibrillation. He was not anticoagulated due to concerns about his platelet counts and risk of bleeding. No history of DVT/PE. Pt seen during a time of high acuity and national emergency pandemic while wearing PPE. Home Medications Medication Instructions Recorded Confirmed Type finasteride 5 mg tablet 5 mg PO HS 09/18/18 02/05/22 History flecainide 100 mg tablet 2 tab PO DIRECTED PRN 09/18/18 02/05/22 History metformin 500 mg tablet 1,000 mg PO BID 05/08/21 02/05/22 History omeprazole 20 mg capsule,delayed 20 mg PO QAM 05/08/21 02/05/22 History release rosuvastatin 10 mg tablet 10 mg PO QAM 05/08/21 02/05/22 History losartan 100 mg tablet 100 mg PO QAM 05/10/21 02/05/22 History tamsulosin 0.4 mg capsule (Flomax) 0.4 mg PO BID 05/10/21 02/05/22 History tadalafil 5 mg tablet 5 mg PO DAILY PRN 09/03/21 02/05/22 History acyclovir 400 mg tablet 400 mg PO BID 01/27/22 02/05/22 History metoprolol tartrate 50 mg tablet 75 mg PO TID 01/27/22 02/05/22 History multivitamin with minerals 1 tab PO QAM 01/27/22 02/05/22 History digoxin 125 mcg (0.125 mg) tablet 250 mcg PO DAILY@1600 #30 tab 01/29/22 02/05/22 Rx ([facility]) magnesium oxide 400 mg (241.3 mg 400 mg PO BID #14 tab 01/29/22 02/05/22 Rx magnesium) tablet ondansetron 4 mg disintegrating 4 mg TRANSLINGUAL Q8 PRN 02/05/22 02/05/22 History tablet Allergies Allergy/AdvReac Type Severity Reaction Status Date / Time bee venom protein (honey bee) Allergy Mild SWELLING Verified 02/05/22 11:17 hydrocodone AdvReac Unknown NAUSEA Verified 02/05/22 11:17 Past Med/Surg History Medical History Atrial fibrillation Paroxysmal - very rare Per 09/21/20 cardio note- had a fib episode February 2020 after shingles vaccine and Jun 2020 - both episodes lasted several hours- resolved after taking Flecainide as prescribed (takes PRN per cardio instructions) [id number] score =3 for risk factors of age of 64, HTN, and DM2 per cardio records- patient not on AC secondary to bleeding complications in the past (Next cardio visit Sep 2021) Diabetes mellitus, type 2 DENIES NEUROPATHY Enlargement of aortic root Follows with Dr. Sibley Per December 2019 ECHO - Aortic root and proximal ascending aorta are mildly enlarged (4.3/4.1 cm respectively) GERD (gastroesophageal reflux disease) History of melanoma PAST HISTORY Hyperlipidemia Hypertension Surgical History History of biopsy of bladder History of cataract surgery bilt History of colonoscopy History of melanoma excision History of removal of cyst off finger Family History Other No family history of adverse response to anesthesia Social History Smoking Status: Never smoker Cigarettes Per Day: QUIT IN 1987; Second Hand Exposure: No; Hx Alcohol Use: No Hx Substance Use: No Preferred Language: Afghan Communication Ability: Effective Base Remover Required: No Beliefs That Will Affect Care: None marital status: Current Living Situation: Spouse How many Children do You have: 1 Other Information That Helps Us Care for You: No Feels Safe at Home: Yes Safety Concerns: Feels Safe At This Time Assistive Devices: None Review of Systems A total of 10 systems reviewed and were otherwise negative All systems reviewed & are unremarkable except as noted in HPI & below Physical Exam Vital Signs Vital Signs - 24 hr 02/05/22 08:16 02/05/22 08:45 02/05/22 09:00 Temperature 37.2 C Temperature Source Oral Pulse Rate 97 H 109 H 109 H Pulse Rate from SpO2 Sensor 98 H 74 Pulse Rhythm Irregular Pulse Strength Normal Respiratory Rate 20 18 18 Respiratory Effort / Characteristics Non-Labored Respiratory Depth Normal Respiratory Pattern Regular Blood Pressure 158/113 H 153/102 H Blood Pressure Mean 128 119 Blood Pressure Position Sitting Pulse Oximetry 94 94 94 Oxygen Delivery Method Room Air Sepsis Recent Fever Within 48 Hours No Sepsis New/Unexplained Change in Mental Status No Sepsis Action Taken by Nursing No Action Required 02/05/22 09:30 02/05/22 10:00 Temperature Temperature Source Pulse Rate 100 H 97 H Pulse Rate from SpO2 Sensor 77 Pulse Rhythm Pulse Strength Respiratory Rate 15 18 Respiratory Effort / Characteristics Respiratory Depth Respiratory Pattern Blood Pressure 157/113 H 164/118 H Blood Pressure Mean 127 133 Blood Pressure Position Pulse Oximetry 97 Oxygen Delivery Method Sepsis Recent Fever Within 48 Hours Sepsis New/Unexplained Change in Mental Status Sepsis Action Taken by Nursing GENERAL: alert, well appearing, well nourished, no distress, non-toxic EYE EXAM: normal conjunctiva, PERRL and EOM's grossly intact OROPHARYNX: no exudate, no erythema, lips, buccal mucosa, and tongue normal and mucous membranes are moist NECK: supple, no nuchal rigidity, no adenopathy, non-tender LUNGS: Clear to auscultation. Normal chest wall mechanics, no w/r/r HEART: no murmurs, S1 normal and S2 normal ABDOMEN: abdomen soft, non-tender, normo-active bowel sounds, no masses, no rebound or guarding. BACK: Back is symmetrical on inspection and there is no deformity, no midline tenderness, no CVA tenderness. SKIN: no rashes and no bruising, pallor UPPER EXTREMITIES: upper extremities are grossly normal. FROM, nml pulses b/l. LOWER EXTREMITIES: No pitting edema. FROM, nml pulses b/l. NEURO EXAM: Normal sensorium, cranial nerves II-XII grossly intact, normal speech, no gross weakness of arms, no gross weakness of legs. Gross sensation intact. Course Course 0932: Patient updated on H&H. 1002: Pt updated on results. Agreeable with plan for CT. 1050: Dr. Sibley here seeing the patient. Administered Medications Digoxin (Digoxin 0.25 Mg Tab) 0.25 mg PO DAILY@1600 [facility] Stop: 03/07/22 15:59 Last Admin: 02/05/22 16:45 Dose: 0.25 mg Documented by: [id number] Enoxaparin Sodium (Enoxaparin Inj 40 Mg/0.4 Ml Syr) 40 mg SQ QAM [facility] Stop: 03/08/22 08:59 Last Admin: 02/06/22 07:45 Dose: 40 mg Documented by: [id number] Finasteride (Finasteride 5 Mg Tab) 5 mg PO HS ANA MARÍA Stop: 03/07/22 20:59 Last Admin: 02/05/22 20:56 Dose: 5 mg Documented by: [id number] Insulin Aspart (Insulin Aspart Per Unit) 0 units SC ACHS ANA MARÍA Stop: 03/07/22 16:29 Last Admin: 02/06/22 12:25 Dose: 2 units Documented by: [id number] Cosigned by: [id number] Admin: 02/06/22 07:43 Dose: 4 units Documented by: [id number] Cosigned by: [id number] Admin: 02/05/22 20:59 Dose: Not Given Documented by: [id number] Admin: 02/05/22 17:04 Dose: Not Given Documented by: [id number] Losartan Potassium (Losartan Potassium 50 Mg Tab) 100 mg PO QAM ANA MARÍA Stop: 03/08/22 08:59 Last Admin: 02/06/22 07:45 Dose: 100 mg Documented by: [id number] Magnesium Oxide (Magnesium Oxide 400 Mg Tab) 400 mg PO BID ANA MARÍA Stop: 03/07/22 20:59 Last Admin: 02/06/22 07:44 Dose: 400 mg Documented by: [id number] Admin: 02/05/22 20:56 Dose: 400 mg Documented by: [id number] Metoprolol Tartrate (Metoprolol Tartrate 25 Mg Tab) 75 mg PO TID [facility] Stop: 03/07/22 14:03 Last Admin: 02/06/22 15:08 Dose: 75 mg Documented by: [id number] Admin: 02/06/22 07:44 Dose: 75 mg Documented by: [id number] Admin: 02/05/22 20:56 Dose: 75 mg Documented by: [id number] Admin: 02/05/22 14:45 Dose: 75 mg Documented by: [id number] Multivitamins/Minerals (Cerovite Adv Formula Tab) [facility] [place] Stop: 03/08/22 08:59 Last Admin: 02/06/22 07:45 Dose: 1 tab Documented by: [id number] Ondansetron HCl (Ondansetron Inj 2 Mg/Ml 2 Ml Vial) 4 mg IV Q4H PRN PRN Reason: Nausea And Vomiting Stop: 03/07/22 14:03 Last Admin: 02/05/22 14:32 Dose: 4 mg Documented by: [id number] Pantoprazole Sodium (Pantoprazole 40 Mg Tab) [facility] [place] Stop: 03/08/22 08:59 Last Admin: 02/06/22 07:44 Dose: 40 mg Documented by: [id number] Rosuvastatin Calcium (Rosuvastatin Calcium 10 Mg Tab) 10 mg PO QAM [facility] Stop: 03/08/22 08:59 Last Admin: 02/06/22 07:45 Dose: 10 mg Documented by: [id number] Tamsulosin HCl (Tamsulosin Hcl 0.4 Mg Cap) 0.4 mg PO BID [facility] Stop: 03/07/22 20:59 Last Admin: 02/06/22 07:46 Dose: 0.4 mg Documented by: [id number] Admin: 02/05/22 20:57 Dose: 0.4 mg Documented by: [id number] Discontinued Medications Furosemide (Furosemide Inj 20 Mg/2 Ml Vial) 20 mg IV ONE ONE Stop: 02/05/22 11:01 Last Admin: 02/05/22 11:31 Dose: 20 mg Documented by: [id number] Furosemide (Furosemide 40 Mg/4 Ml Vial) 40 mg IV ONE ONE Stop: 02/06/22 09:04 Last Admin: 02/06/22 09:20 Dose: 40 mg Documented by: [id number] Ioversol (Optiray 320 125ml) 120 ml IV ONCE ONE Stop: 02/05/22 10:25 Last Admin: 02/05/22 10:13 Dose: 120 ml Documented by: [id number] Medical Decision Making Differential Diagnosis Differential diagnoses includes but is not limited to pneumonia, bronchitis, COPD/Asthma exacerbation, pneumothorax, pulmonary embolism, congestive heart failure, acute coronary syndrome Medical Records Attestation: I reviewed the patient's medical records. Home Medications Current Medication List: was personally reviewed by co Laboratory Data Attestation: I reviewed the patient's lab results. Result diagrams: 02/06/22 06:03 02/06/22 06:03 Lab Results 02/05/22 02/05/22 02/05/22 Range/Units 08:30 08:38 08:38 WBC 5.83 (4.8-10.8) K/uL RBC 2.72 L (4.7-6.1) M/uL Hgb 8.8 L (14.0-18.0) g/dL Hct 27.0 L (42-52) % MCV 99.3 (80-100) fL MCH 32.4 (25-34) pg MCHC 32.6 (32-36) g/dL RDW Std Deviation 56.4 H (36.4-46.3) fL RDW Coeff of Anna 19.1 H (11.5-14.5) % Plt Count 187 (130-400) K/uL MPV 11.2 H (7.4-10.4) fL Immature Gran % (Auto) 0.5 % Neut % (Auto) 67.9 % Lymph % (Auto) 7.2 % Clinch % (Auto) 24.0 % Eos % (Auto) 0.2 % Baso % (Auto) 0.2 % Neut # (Auto) 3.96 (1.4-6.5) K/uL Lymph # (Auto) 0.42 L (1.2-3.4) K/uL Clinch # (Auto) 1.40 H (0.11-0.59) K/uL Eos # (Auto) 0.01 (0-0.5) K/uL Baso # (Auto) 0.01 (0-0.2) K/uL Immature Gran # (Auto) 0.03 H (0.00-0.02) K/uL Absolute Nucleated RBC 0.14 H (0-0) K/uL Nucleated RBC % (auto) 2.3 % RBC Morphology Unremarkable PT (9.0-12.0) Seconds INR (0.9-1.1) Sodium (136-145) mmol/L Potassium (3.5-5.1) mmol/L Chloride (98-107) mmol/L Carbon Dioxide (21-32) mmol/L Anion Gap (3-11) BUN (6-23) mg/dl Creatinine (0.6-1.4) mg/dl Est Cr Clr Drug Dosing ml/min Est GFR ( Amer) ml/min Est GFR (Non-Af Amer) ml/min BUN/Creatinine Ratio (10-20) Glucose (70-99(Fasting)) mg/dl Calcium (8.5-10.1) mg/dl Magnesium (1.7-2.4) mg/dl Total Bilirubin (0.2-1.0) mg/dl AST (13-39) U/L ALT (7-52) U/L Alkaline Phosphatase (34-104) U/L Troponin I High Sens (0-20) pg/ml Total Protein (6.0-8.3) gm/dl Albumin (3.4-5.0) gm/dl Globulin (2.5-4.0) gm/dl Albumin/Globulin Ratio (0.9-2) TSH (0.300-4.500) uIu/ml Free T4 (0.61-1.60) ng/dl Digoxin 1.2 (0.8-2.0) ng/ml SARS-CoV-2, RNA, NAAT NEGATIVE (NEGATIVE) Blood Type Antibody Screen 02/05/22 02/05/22 02/05/22 Range/Units 08:38 08:38 08:38 WBC (4.8-10.8) K/uL RBC (4.7-6.1) M/uL Hgb (14.0-18.0) g/dL Hct (42-52) % MCV (80-100) fL MCH (25-34) pg MCHC (32-36) g/dL RDW Std Deviation (36.4-46.3) fL RDW Coeff of Anna (11.5-14.5) % Plt Count (130-400) K/uL MPV (7.4-10.4) fL Immature Gran % (Auto) % Neut % (Auto) % Lymph % (Auto) % Clinch % (Auto) % Eos % (Auto) % Baso % (Auto) % Neut # (Auto) (1.4-6.5) K/uL Lymph # (Auto) (1.2-3.4) K/uL Clinch # (Auto) (0.11-0.59) K/uL Eos # (Auto) (0-0.5) K/uL Baso # (Auto) (0-0.2) K/uL Immature Gran # (Auto) (0.00-0.02) K/uL Absolute Nucleated RBC (0-0) K/uL Nucleated RBC % (auto) % RBC Morphology PT 11.0 (9.0-12.0) Seconds INR 1.0 (0.9-1.1) Sodium 141 (136-145) mmol/L Potassium 3.9 (3.5-5.1) mmol/L Chloride 105 (98-107) mmol/L Carbon Dioxide 29 (21-32) mmol/L Anion Gap 7 (3-11) BUN 13 (6-23) mg/dl Creatinine 1.09 (0.6-1.4) mg/dl Est Cr Clr Drug Dosing 82.4 ml/min Est GFR ( Amer) 81.0 ml/min Est GFR (Non-Af Amer) 69.9 ml/min BUN/Creatinine Ratio 11.9 (10-20) Glucose 133 H (70-99(Fasting)) mg/dl Calcium 8.7 (8.5-10.1) mg/dl Magnesium 2.1 (1.7-2.4) mg/dl Total Bilirubin 0.4 (0.2-1.0) mg/dl AST 18 (13-39) U/L ALT 13 (7-52) U/L Alkaline Phosphatase 78 (34-104) U/L Troponin I High Sens 199.5 H* D (0-20) pg/ml Total Protein 6.3 (6.0-8.3) gm/dl Albumin 3.5 (3.4-5.0) gm/dl Globulin 2.8 (2.5-4.0) gm/dl Albumin/Globulin Ratio 1.3 (0.9-2) TSH 4.547 H (0.300-4.500) uIu/ml Free T4 1.08 (0.61-1.60) ng/dl Digoxin (0.8-2.0) ng/ml SARS-CoV-2, RNA, NAAT (NEGATIVE) Blood Type Antibody Screen 02/05/22 Range/Units 08:47 WBC (4.8-10.8) K/uL RBC (4.7-6.1) M/uL Hgb (14.0-18.0) g/dL Hct (42-52) % MCV (80-100) fL MCH (25-34) pg MCHC (32-36) g/dL RDW Std Deviation (36.4-46.3) fL RDW Coeff of Anna (11.5-14.5) % Plt Count (130-400) K/uL MPV (7.4-10.4) fL Immature Gran % (Auto) % Neut % (Auto) % Lymph % (Auto) % Clinch % (Auto) % Eos % (Auto) % Baso % (Auto) % Neut # (Auto) (1.4-6.5) K/uL Lymph # (Auto) (1.2-3.4) K/uL Clinch # (Auto) (0.11-0.59) K/uL Eos # (Auto) (0-0.5) K/uL Baso # (Auto) (0-0.2) K/uL Immature Gran # (Auto) (0.00-0.02) K/uL Absolute Nucleated RBC (0-0) K/uL Nucleated RBC % (auto) % RBC Morphology PT (9.0-12.0) Seconds INR (0.9-1.1) Sodium (136-145) mmol/L Potassium (3.5-5.1) mmol/L Chloride (98-107) mmol/L Carbon Dioxide (21-32) mmol/L Anion Gap (3-11) BUN (6-23) mg/dl Creatinine (0.6-1.4) mg/dl Est Cr Clr Drug Dosing ml/min Est GFR ( Amer) ml/min Est GFR (Non-Af Amer) ml/min BUN/Creatinine Ratio (10-20) Glucose (70-99(Fasting)) mg/dl Calcium (8.5-10.1) mg/dl Magnesium (1.7-2.4) mg/dl Total Bilirubin (0.2-1.0) mg/dl AST (13-39) U/L ALT (7-52) U/L Alkaline Phosphatase (34-104) U/L Troponin I High Sens (0-20) pg/ml Total Protein (6.0-8.3) gm/dl Albumin (3.4-5.0) gm/dl Globulin (2.5-4.0) gm/dl Albumin/Globulin Ratio (0.9-2) TSH (0.300-4.500) uIu/ml Free T4 (0.61-1.60) ng/dl Digoxin (0.8-2.0) ng/ml SARS-CoV-2, RNA, NAAT (NEGATIVE) Blood Type O Positive Antibody Screen NEGATIVE Imaging Data Radiologist's Impression: Chest X-Ray 02/05/22 08:20 XR chest 1V portable HISTORY: 66 years-old Male sob acute shortness of breath COMPARISON: Chest radiograph 01/27/2022 TECHNIQUE: Portable AP view of the chest FINDINGS: Right IJ Nrcxrb-[id number]-[id number] catheter distal tip projects over the expected location o f the mid to inferior SVC. The cardiac silhouette is enlarged. No pneumothorax or large pleural effusion. Eventration of the right hemidiaphragm. Pulmonary vascular congestion with progressive interstitial coarsening. Degenerative changes of the shoulders and spine. IMPRESSION: Cardiomegaly with mild pulmonary edema. ACT 112: Negative or not required by law. The above report was generated using voice recognition software. It may contain grammatical, syntax or spelling errors. Electronically signed by: Kameron Srinivasan M.D. 02/05/2022 8:48 AM Chest CTA 02/05/22 09:56 CT angio chest PE protocol CLINICAL HISTORY: PE TECHNIQUE: Multidetector row helical CT of the chest was performed with angiographic protocol. Coronal and sagittal reformations were obtained. Coronal and sagittal MIPS were obtained from the axial data set and were submitted for review. Automated dose lowering techniques and/or adjustment according to patient size were utilized for this exam. CT DOSE: 528.92 mGy.cm Comparison: Comparison is made to chest radiograph 02/25/2022 FINDINGS: Lungs and pleura: Smooth interstitial thickening is seen. There are small bilateral pleural effusions. Multiple pulmonary nodules are seen including a 4 mm nodule in the lingula (image 111 of series 4) and a 4 mm nodule in the right upper lobe (image 188). Heart and pericardium: Cardiomegaly is seen with biatrial enlargement. Vessels: No evidence of pulmonary embolism. The pulmonary trunk measures 33 mm in diameter. Mediastinum and yola: Subcentimeter lymph nodes are seen. Chest wall and lower neck: A left thyroid nodule measures up to 20 mm in diameter. Abdomen: Unremarkable. Bones: Degenerative changes in the thoracic spine. IMPRESSION: 1. No evidence of pulmonary embolism. 2. Cardiomegaly with moderate pulmonary edema. 3. Nodularity in the lungs measuring up to 4 mm. This may be infectious/inflammatory with reactive mediastinal lymph nodes. Follow-up to resolution is recommended. 4. Small bilateral pleural effusions. 5. Thyroid nodules measuring up to 20 mm in diameter. If not previously evaluated, nonemergent thyroid ultrasound can be performed. ACT 112: Negative or not required by law. Electronically signed by: Dallas Joyner M.D. 02/05/2022 10:44 AM ECG Data Attestation: I personally reviewed and interpreted this ECG as follows: Indication: + SOB/dyspnea Rate (beats per minute): 108 Rhythm: + atrial fibrillation ECG Intervals/blocks: + Normal QRS and + Normal QT ECG [place]: + Normal ECG ST segments: + Nonspecific ST abnormalities MDM Narrative An order was placed for continuous cardiac monitoring. The monitor shows a rate of _78_ with _a.fib___ rhythm. This is a 66-year-old male who presents emergency department due to concern for fatigue and orthopnea. Patient does have significant past medical history inclu ding AML and known atrial fibrillation. Patient's labs with stable appearing anemia and markedly elevated troponin. Patient's EKG with atrial fibrillation and no other acute changes. CT angiography of the chest to rule out PE did show moderate pulmonary edema. Case discussed with cardiology who he follows with who feels he is likely volume overloaded. His level within normal limits. Given recent new diagnosis of atrial fibrillation and evolving pulmonary edema, cardiology recommended gentle diuresis and additional rate control as an inpatient. Case discussed with hospitalist for additional evaluation and management. Patient rechecked multiple times and continued to be stable appearing while in the emergency room. He did not require any supplemental oxygen. He was made aware of all results and verbalized understanding and was in agreement with the plan. Impression & Plan Acute dyspnea, Pulmonary edema, Atrial fibrillation, Anemia Discharge Plan Visit Data Chief Complaint: Shortness of Breath/Dyspnea ED Provider: Jammie Morales Discharge Problem: Acute dyspnea, Pulmonary edema, Atrial fibrillation, Anemia Patient Disposition: Admitted As Inpatient Discharge Instructions Interventions: ED Discharge Assessment Last Done: 02/05/22 13:11 Discharge Problem: Pulmonary edema Qualifiers: Chronicity: acute Qualified Code(s): J81.0 - Acute pulmonary edema Atrial fibrillation Qualifiers: Atrial fibrillation type: unspecified Qualified Code(s): I48.91 - Unspecified atrial fibrillation Anemia Qualifiers: Anemia type: unspecified type Qualified Code(s): D64.9 - Anemia, unspecified
--- NOTE | 2022-02-05 08:50 | XRay Report ---
XR chest 1V portable HISTORY: 66 years-old Male sob acute shortness of breath COMPARISON: Chest radiograph 01/27/2022 TECHNIQUE: Portable AP view of the chest FINDINGS: Right IJ Nbmpvz-e-Mkoh catheter distal tip projects over the expected location of the mid to inferior SVC. The cardiac silhouette is enlarged. No pneumothorax or large pleural effusion. Eventration of t he right hemidiaphragm. Pulmonary vascular congestion with progressive interstitial coarsening. Degen erative changes of the shoulders and spine. IMPRESSION: Cardiomegaly with mild pulmonary edema. ACT 112: Negative or not required by law. The above report was generated using voice recognition software. It may contain grammatical, syntax o r spelling errors. Electronically signed by: Kameron Srinivasan M.D. 02/05/2022 8:48 AM
[2022-02-05 09:03] LABS: Basophils # (auto) 0.01 K/uL (0-0.2); Basophils % (auto) 0.2 %; Eosinophils # (auto) 0.01 K/uL (0-0.5); Eosinophils % (auto) 0.2 %; Hemoglobin 8.8 g/dL (14.0-18.0); Immature Granulocytes # (auto) 0.03 K/uL (0.00-0.02); Immature Granulocytes % (auto) 0.5 %; Lymphocytes # (auto) 0.42 K/uL (1.2-3.4); Lymphocytes % (auto) 7.2 %; Mean Corpuscular Hemoglobin 32.4 pg (25-34); Mean Corpuscular Hgb Conc 32.6 g/dL (32-36); Mean Corpuscular Volume 99.3 fL (80-100); Mean Platelet Volume 11.2 fL (7.4-10.4); Neutrophils # (auto) 3.96 K/uL (1.4-6.5); Neutrophils % (auto) 67.9 %; Nucleated RBC # (auto) 0.14 K/uL (0-0); Nucleated RBC % (auto) 2.3 %; Platelet Count 187 K/uL (130-400); RDW Coefficient of Variation 19.1 % (11.5-14.5); RDW Standard Deviation 56.4 fL (36.4-46.3); Red Blood Count 2.72 M/uL (4.7-6.1); White Blood Count 5.83 K/uL (4.8-10.8)
[2022-02-05 09:35] LABS: Albumin Globulin Ratio 1.3 (0.9-2); Albumin Level 3.5 gm/dl (3.4-5.0); BUN Creatinine Ratio 11.9 (10-20); Bilirubin,Total 0.4 mg/dl (0.2-1.0); Calcium 8.7 mg/dl (8.5-10.1); Creatinine Clr Calc Pharmacy 82.4 ml/min; Est GFR (Non-African American) 69.9 ml/min; Globulin 2.8 gm/dl (2.5-4.0); Magnesium 2.1 mg/dl (1.7-2.4); Potassium 3.9 mmol/L (3.5-5.1); Total Protein 6.3 gm/dl (6.0-8.3)
[2022-02-05 09:40] LABS: Thyroid Stimulating Hormone 4.547 uIu/ml (0.300-4.500)
[2022-02-05 09:44] LABS: Troponin I High Sensitivity 199.5 pg/ml (0-20)
[2022-02-05 10:00] LABS: RBC Morphology Unremarkable
[2022-02-05 10:11] LABS: T4 Free Thyroxine 1.08 ng/dl (0.61-1.60)
[2022-02-05] MEDS ORDERED: OPTIRAY 320 125ml IV ONE (10:24)
--- NOTE | 2022-02-05 10:46 | CT Scan Report ---
CT angio chest PE protocol CLINICAL HISTORY: PE TECHNIQUE: Multidetector row helical CT of the chest was performed with angiographic protocol. Hamilton l and sagittal reformations were obtained. Coronal and sagittal MIPS were obtained from the axial jakub a set and were submitted for review. Automated dose lowering techniques and/or adjustment according to patient size were utilized for this exam. CT DOSE: 528.92 mGy.cm Comparison: Comparison is made to chest radiograph 02/25/2022 FINDINGS: Lungs and pleura: Smooth interstitial thickening is seen. There are small bilateral pleural effusions . Multiple pulmonary nodules are seen including a 4 mm nodule in the lingula (image 111 of series 4) and a 4 mm nodule in the right upper lobe (image 188). Heart and pericardium: Cardiomegaly is seen with biatrial enlargement. Vessels: No evidence of pulmonary embolism. The pulmonary trunk measures 33 mm in diameter. Mediastinum and yola: Subcentimeter lymph nodes are seen. Chest wall and lower neck: A left thyroid nodule measures up to 20 mm in diameter. Abdomen: Unremarkable. Bones: Degenerative changes in the thoracic spine. IMPRESSION: 1. No evidence of pulmonary embolism. 2. Cardiomegaly with moderate pulmonary edema. 3. Nodularity in the lungs measuring up to 4 mm. This may be infectious/inflammatory with reactive m ediastinal lymph nodes. Follow-up to resolution is recommended. 4. Small bilateral pleural effusions. 5. Thyroid nodules measuring up to 20 mm in diameter. If not previously evaluated, nonemergent thyro id ultrasound can be performed. ACT 112: Negative or not required by law. Electronically signed by: Dallas Joyner M.D. 02/05/2022 10:44 AM
[2022-02-05] MEDS ORDERED: FUROSEMIDE INJ 20 MG/2 ML VIAL IV ONE (11:00)
--- NOTE | 2022-02-05 11:21 | History & Physical Report ---
Date of Service February 05, 2022 Assessment & Plan (1) Atrial fibrillation with RVR: (2) Hypertension: (3) Hyperlipidemia: Plan: -Admit to telemetry -Continue metoprolol 75 mg 3 times daily and digoxin daily -Digoxin level was checked and is WNL -EKG reviewed on Mandic web by myself, showing afib with RVRV with rate of 108, QT/QTc 308/412, no T wave changes or inversions, no signs of acute ischemia -Consult cardiology - Dr. Sibley -Give Lasix 20 mg IV now, continue daily Lasix dosing pending urine outs -Strict I's and O's, daily weights, fluid restriction -Troponin is elevated at 199.5, previously it was only elevated slightly, will trend q6H -BP Slightly elevated at 164/118, follow - took metoprolol, losartan this morning, digoxin yesterday at 4 pm (4) AML (acute myelogenous leukemia): Plan: - diagnosed in November 2021, currently getting HiDac induction with gemtuzumab (cytarabine and gemtuzumab, most recently had 2nd cycle on 12/28/21 x 6 days) -Check CBC with differential daily, CMP, mag, Phos, uric acid and LDH to monitor for lysis syndrome -Currently platelet count of 187, WBC = 5.83, hemoglobin 8.8, hematocrit 27 improved compared to previous admission (5) Diabetes mellitus, type 2: Plan: -Continue ISS with Accu-Cheks ACHS -Last A1c = 7.7 on 01/28/2022 -Holding metformin DVT PPx: -teds, scds, Lovenox subcu CODE: Full code Dispo: From home, likely to remain in the hospital x 1-2 days History of Present Illness Primary Care Provider: Anthony Rico MD This is a 66 yo M with PMhx of AML, diagnosed in November 2021, currently getting HiDac induction with gemtuzumab (cytarabine and gemtuzumab 2nd cycle on 12/28/21 x 6 days), anemia due to antineoplastic chemotherapy, thrombocytopenia, parox afib, DM II, HTN, HLD. He was recently hospitalized here from 01/27-01/31 for fib with RBR where medications were adjusted with increased of metoprolol tartrate 75 mg TID and added digoxin 125 mcg daily. He has established care with cardiology already. Pt notes he started feeling SOB, orthopnea, nausea, and some worsening edema in his legs and abdomen later last night. He continued to feel it this morning so presented to the hospital to get it checked out. His , Danial, who is present is at bedside, states he has had intermittent complaints about this since being discharged from [facility] about a month ago. He denies any specific chest pain or heaviness. He denies Her cardiac history or strong family history.Patient reports that he has been eating and drinking without difficulty, his appetite is slightly down secondary to having chemotherapy recently but not out of the normal. His bowels are moving regularly and has no urinary complaints. He has been taking metoprolol tartrate, losartan and digoxin as directed. He had not been taking flecainide as he tells me he was told not to because of afib. Allergies Allergy/AdvReac Type Severity Reaction Status Date / Time bee venom protein (honey bee) Allergy Mild SWELLING Verified 02/05/22 11:17 hydrocodone AdvReac Unknown NAUSEA Verified 02/05/22 11:17 Home Medications Medication Instructions Recorded Confirmed Type finasteride 5 mg tablet 5 mg PO HS 09/18/18 02/05/22 History flecainide 100 mg tablet 2 tab PO DIRECTED PRN 09/18/18 02/05/22 History metformin 500 mg tablet 1,000 mg PO BID 05/08/21 02/05/22 History omeprazole 20 mg capsule,delayed 20 mg PO QAM 05/08/21 02/05/22 History release rosuvastatin 10 mg tablet 10 mg PO QAM 05/08/21 02/05/22 History losartan 100 mg tablet 100 mg PO QAM 05/10/21 02/05/22 History tamsulosin 0.4 mg capsule (Flomax) 0.4 mg PO BID 05/10/21 02/05/22 History tadalafil 5 mg tablet 5 mg PO DAILY PRN 09/03/21 02/05/22 History acyclovir 400 mg tablet 400 mg PO BID 01/27/22 02/05/22 History metoprolol tartrate 50 mg tablet 75 mg PO TID 01/27/22 02/05/22 History multivitamin with minerals 1 tab PO QAM 01/27/22 02/05/22 History digoxin 125 mcg (0.125 mg) tablet 250 mcg PO DAILY@1600 #30 tab 01/29/22 02/05/22 Rx ([facility]) magnesium oxide 400 mg (241.3 mg 400 mg PO BID #14 tab 01/29/22 02/05/22 Rx magnesium) tablet ondansetron 4 mg disintegrating 4 mg TRANSLINGUAL Q8 PRN 02/05/22 02/05/22 History tablet Past Med/Surg History Medical History (Updated 02/05/22 @ 11:52 by Denisa Ham PA-C) Atrial fibrillation Paroxysmal - very rare Per 09/21/20 cardio note- had a fib episode February 2020 after shingles vaccine and Jun 2020 - both episodes lasted several hours- resolved after taking Flecainide as prescribed (takes PRN per cardio instructions) [id number] score =3 for risk factors of age of 64, HTN, and DM2 per cardio records- patient not on AC secondary to bleeding complications in the past (Next cardio visit Sep 2021) Diabetes mellitus, type 2 DENIES NEUROPATHY Enlargement of aortic root Follows with Dr. Sibley Per December 2019 ECHO - Aortic root and proximal ascending aorta are mildly enlarged (4.3/4.1 cm respectively) GERD (gastroesophageal reflux disease) History of melanoma PAST HISTORY Hyperlipidemia Hypertension Surgical History History of biopsy of bladder History of cataract surgery bilt History of colonoscopy History of melanoma excision History of removal of cyst off finger Family History Other No family history of adverse response to anesthesia Social History Smoking Status: Never smoker Cigarettes Per Day: QUIT IN 1987; Second Hand Exposure: No; Hx Alcohol Use: No Hx Substance Use: No Preferred Language: Cymraes Communication Ability: Effective Boom Tender Required: No Beliefs That Will Affect Care: None marital status: Current Living Situation: Spouse Feels Safe at Home: Yes Assistive Devices: None Review of Systems Review of Systems: Constitutional: No fever, sweats or chills Eyes: No diplopia, no worsening or blurred vision ENT: normal hearing, no trouble swallowing, no oral lesion, no pain with swallowing Respiratory: No cough, sputum, dyspnea at rest or on exertion Cardiovascular:As per HPI, No chest pain, no tightness, + flutter and palpitations Abdomen: No pain, nausea, vomiting, diarrhea or constipation Musculoskeletal: No joint pain, calf pain, Sign minimal lower extremity swelling and abdominal swelling Neurologic: No weakness, numbness/tingling, or balance problems Psychiatric: No anxiety or depression Skin: No rash or itch Physical Exam Physical Exam: General: awake, alert, no apparent distress, + alopecia Head: Normocephalic, atraumatic ENT: PERRL, EOMI, no pharyngeal exudate, mucous membranes moist Chest: Clear to auscultation, on room air, no adventitious breath sounds Cardiac: irregularly irregular rates in 110s, no murmur, no JVD, normal peripheral pulses, good capillary refill Abdominal: NABS x 4 quadrants, soft, + slightly swollen, +moderately distended, nontender to palpation, no rebound or guarding Extremities: 1+ peripheral edema nonpitting, no erythema, calfs nontender to palpation Psych: Normal mood and affect Neuro: AAO x 3, strength intact bilaterally and rated 5/5, no motor deficits, speech is clear, no peripheral sensory deficits Results & Data Results & Data ([facility]) Vital Signs (Past 12 Hours) Vital Signs Temp Pulse Resp BP Pulse Ox 02/05/22 10:00 97 H 18 164/118 H 97 02/05/22 09:30 100 H 15 157/113 H 02/05/22 09:00 109 H 18 153/102 H 94 02/05/22 08:45 109 H 18 94 02/05/22 08:16 37.2 C 97 H 20 158/113 H 94 Laboratory Results 02/05/22 02/05/22 02/05/22 08:47 08:38 08:38 WBC RBC Hgb Hct MCV MCH MCHC RDW Std Deviation RDW Coeff of Anna Plt Count MPV Immature Gran % (Auto) Neut % (Auto) Lymph % (Auto) Clarke % (Auto) Eos % (Auto) Baso % (Auto) Neut # (Auto) Lymph # (Auto) Clarke # (Auto) Eos # (Auto) Baso # (Auto) Immature Gran # (Auto) Absolute Nucleated RBC Nucleated RBC % (auto) RBC Morphology PT INR Sodium 141 Potassium 3.9 Chloride 105 Carbon Dioxide 29 Anion Gap 7 BUN 13 Creatinine 1.09 Est Cr Clr Drug Dosing 82.4 Est GFR ( Amer) 81.0 Est GFR (Non-Af Amer) 69.9 BUN/Creatinine Ratio 11.9 Glucose 133 H Calcium 8.7 Magnesium 2.1 Total Bilirubin 0.4 AST 18 ALT 13 Alkaline Phosphatase 78 Troponin I High Sens 199.5 H* D Total Protein 6.3 Albumin 3.5 Globulin 2.8 Albumin/Globulin Ratio 1.3 TSH 4.547 H Free T4 1.08 Digoxin SARS-CoV-2, RNA, NAAT Blood Type O Positive Antibody Screen NEGATIVE 02/05/22 02/05/22 02/05/22 08:38 08:38 08:38 WBC 5.83 RBC 2.72 L Hgb 8.8 L Hct 27.0 L MCV 99.3 MCH 32.4 MCHC 32.6 RDW Std Deviation 56.4 H RDW Coeff of Anna 19.1 H Plt Count 187 MPV 11.2 H Immature Gran % (Auto) 0.5 Neut % (Auto) 67.9 Lymph % (Auto) 7.2 Clarke % (Auto) 24.0 Eos % (Auto) 0.2 Baso % (Auto) 0.2 Neut # (Auto) 3.96 Lymph # (Auto) 0.42 L Clarke # (Auto) 1.40 H Eos # (Auto) 0.01 Baso # (Auto) 0.01 Immature Gran # (Auto) 0.03 H Absolute Nucleated RBC 0.14 H Nucleated RBC % (auto) 2.3 RBC Morphology Unremarkable PT 11.0 INR 1.0 Sodium Potassium Chloride Carbon Dioxide Anion Gap BUN Creatinine Est Cr Clr Drug Dosing Est GFR ( Amer) Est GFR (Non-Af Amer) BUN/Creatinine Ratio Glucose Calcium Magnesium Total Bilirubin AST ALT Alkaline Phosphatase Troponin I High Sens Total Protein Albumin Globulin Albumin/Globulin Ratio TSH Free T4 Digoxin 1.2 SARS-CoV-2, RNA, NAAT Blood Type Antibody Screen 02/05/22 08:30 WBC RBC Hgb Hct MCV MCH MCHC RDW Std Deviation RDW Coeff of Anna Plt Count MPV Immature Gran % (Auto) Neut % (Auto) Lymph % (Auto) Clarke % (Auto) Eos % (Auto) Baso % (Auto) Neut # (Auto) Lymph # (Auto) Clarke # (Auto) Eos # (Auto) Baso # (Auto) Immature Gran # (Auto) Absolute Nucleated RBC Nucleated RBC % (auto) RBC Morphology PT INR Sodium Potassium Chloride Carbon Dioxide Anion Gap BUN Creatinine Est Cr Clr Drug Dosing Est GFR ( Amer) Est GFR (Non-Af Amer) BUN/Creatinine Ratio Glucose Calcium Magnesium Total Bilirubin AST ALT Alkaline Phosphatase Troponin I High Sens Total Protein Albumin Globulin Albumin/Globulin Ratio TSH Free T4 Digoxin SARS-CoV-2, RNA, NAAT NEGATIVE Blood Type Antibody Screen Diagnostic Findings Chest X-Ray 02/05/22 08:20 XR chest 1V portable HISTORY: 66 years-old Male sob acute shortness of breath COMPARISON: Chest radiograph 01/27/2022 TECHNIQUE: Portable AP view of the chest FINDINGS: Right IJ [id number] catheter distal tip projects over the expected location of the mid to inferior SVC. The cardiac silhouette is enlarged. No pneumothorax or large pleural effusion. Eventration of the right hemidiaphragm. Pulmonary vascular congestion with progressive interstitial coarsening. Degenerative changes of the shoulders and spine. IMPRESSION: Cardiomegaly with mild pulmonary edema. ACT 112: Negative or not required by law. The above report was generated using voice recognition software. It may contain grammatical, syntax or spelling errors. Electronically signed by: Kameron Srinivasan M.D. 02/05/2022 8:48 AM Chest CTA 02/05/22 09:56 CT angio chest PE protocol CLINICAL HISTORY: PE TECHNIQUE: Multidetector row helical CT of the chest was performed with angiographic protocol. Coronal and sagittal reformations were obtained. Coronal and sagittal MIPS were obtained from the axial data set and were submitted for review. Automated dose lowering techniques and/or adjustment according to patient size were utilized for this exam. CT DOSE: 528.92 mGy.cm Comparison: Comparison is made to chest radiograph 02/25/2022 FINDINGS: Lungs and pleura: Smooth interstitial thickening is seen. There are small bilateral pleural effusions. Multiple pulmonary nodules are seen including a 4 mm nodule in the lingula (image 111 of series 4) and a 4 mm nodule in the right upper lobe (image 188). Heart and pericardium: Cardiomegaly is seen with biatrial enlargement. Vessels: No evidence of pulmonary embolism. The pulmonary trunk measures 33 mm in diameter. Mediastinum and yola: Subcentimeter lymph nodes are seen. Chest wall and lower neck: A left thyroid nodule measures up to 20 mm in diameter. Abdomen: Unremarkable. Bones: Degenerative changes in the thoracic spine. IMPRESSION: 1. No evidence of pulmonary embolism. 2. Cardiomegaly with moderate pulmonary edema. 3. Nodularity in the lungs measuring up to 4 mm. This may be infectious/inflammatory with reactive mediastinal lymph nodes. Follow-up to resolution is recommended. 4. Small bilateral pleural effusions. 5. Thyroid nodules measuring up to 20 mm in diameter. If not previously evaluated, nonemergent thyroid ultrasound can be performed. ACT 112: Negative or not required by law. Electronically signed by: Dallas Joyner M.D. 02/05/2022 10:44 AM ECG Additional Comments: A. fib with RVR, new T wave inversions or signs of acute ischemia, rates in 110s Code Status & VTE Plan Code Status FULL - Discussed with the patient and his at bedside Supervising Physician Co-Signing Physician Notes Pt is a 66 y/o M with hx of AML currently undergoing chemo, Pancytopenia, Afib (not on AC), DMII, HTN, HLD, BPH admitted for dyspnea with AFib with RVR and pulm edema. PE: NAD, well developed Cardiac: In afib Lungs: b/l crackles (R>L) Abd: Soft, obese abd, NT MSK: b/l moderate LE pitting edema Psych: AAOX3, normal affect A/P: Dyspnea: -likely 2/2 Afib with RVR + Pulm edema -Trop is elevated as well ---- pt denied any acute CP ---- will trend trop -started the pt on Lasix 20mg IV ----- does not take diuretics at home ----- strict I/O -cardiology on board ----- likely would repeat Echo but await for cardiology recommendation -for now will continue home metoprolol dose and digoxin Pancytopenia: -hgb is near baseline -PLT and WBC wnl Thyroid nodule: -per pt he does have hx of thyroid nodule -CTA chest: Thyroid nodules measuring up to 20 mm in diameter. If not previously evaluated, nonemergent thyroid ultrasound can be performed. ----- recommended outpt thyroid US follow up with repeat TSH/T4 Other chronic conditions: Plan as above Agree with A/P by Chapis Ham PA-C
[2022-02-05] MEDS ORDERED: ACETAMINOPHEN 325 MG TAB PO PRN (14:04)
[2022-02-05] MEDS ORDERED: ONDANSETRON INJ 2 MG/ML 2 ML VIAL IV PRN (14:04)
[2022-02-05] MEDS ORDERED: DEXTROSE 50% 50 ML SYRINGE IV PRN (14:04)
[2022-02-05] MEDS ORDERED: CARBOHYDRATES FOR HYPOGLYCEMIA PO PRN (14:04)
[2022-02-05] MEDS ORDERED: GLUCOSE 40% GEL 15 GM TUBE PO PRN (14:04)
[2022-02-05] MEDS ORDERED: GLUCOSE 10 TAB/TUBE PO PRN (14:04)
[2022-02-05] MEDS ORDERED: GLUCAGON FOR INJ 1 MG VIAL SQ PRN (14:04)
[2022-02-05] MEDS: METOPROLOL TARTRATE 25 MG TAB PO SCH ×2 (14:45→20:56)
[2022-02-05] MEDS: DIGOXIN 0.25 MG TAB PO SCH (16:45)
[2022-02-05] MEDS: INSULIN ASPART PER UNIT SC SCH ×2 (17:04→20:59)
--- NOTE | 2022-02-05 17:10 | Cardiology Consultation ---
Date of Consultation February 05, 2022 Assessment & Plan (1) Atrial fibrillation with RVR: (2) Fluid retention: (3) AML (acute myelogenous leukemia): 66-year-old male with recent induction therapy for AML, transiently received anthracycline-based chemotherapy Dec, 2021. Presents with ongoing issues with regards to atrial fibrillation, now with fluid retention. Hemoglobin stable at 8.8, discharge hemoglobin was 8.1 several days ago. Continue metoprolol tartrate 75 mg 3 times daily. Continue digoxin 250 mcg daily. 20 mg IV furosemide administered after patient received contrast in the emergency department. Will reassess daily diuretic dose as hospitalization develops. Hold off on systemic anticoagulation due to recent anemia, thrombocytopenia. Agree with cautious use of Lovenox 40 mg subcu daily for DVT prophylaxis. History of Present Illness Attending Physician: Cher Peña MD History of Present Illness Abdias Osei is a 66 year old male seen in cardiology consultation in the ED per the request of Dr Morales. Patient well known to the undersigned, is I have followed him as an outpatient for years for his history of paroxysmal atrial fibrillation. Patient recently hospitalized at [facility] from 12/04/2021 until 01/22/2022. Patient recently diagnosed with AML and during that hospital stay induction chemotherapy performed He received cytarabine/daunorubicin from 12/04 - 12/10/2021. 2nd induction 12/28/21 with 6 days of high dose cytarabine and gemtuzumab. During that stay persistent atrial fibrillation noted prompting cardiology consultation and metoprolol was increased to 75 mg 3 times per day digoxin initiated. Patient required platelet and red blood cell count transfusions, and therefore aspirin was discontinued and anticoagulation was not reinitiated. Echocardiogram performed as an outpatient on 11/21/2021 prior to initiating anthracycline chemotherapy revealed LVEF of 61%, moderate aortic root enlargement, 4.4 cm, mild ascending aorta enlargement 4.2 cm, unchanged compared to September,. Patient subsequently admitted to [facility] 01/27/2022 until 01/31/2022. Patient presented with shortness of breath was felt to be due to atrial fibrillation and anemia, hemoglobin 7.1 on presentation, received 1 unit of packed red blood cells and the repeat was 8.6. Digoxin dose was increased to 250 mcg daily. Echocardiogram 01/28/2022 revealed low normal LVEF of 50 to 55%, while in atrial fibrillation, with moderate left atrial dilatation, mild to moderate mitral regurgitation. Patient presents today 02/05/2022, with ongoing worsening shortness of breath. He notes mild ankle edema, and abdominal bloating. Notes chest tightness when he tries to lie supine. Allergies Allergy/AdvReac Type Severity Reaction Status Date / Time bee venom protein (honey bee) Allergy Mild SWELLING Verified 02/05/22 11:17 hydrocodone AdvReac Unknown NAUSEA Verified 02/05/22 11:17 Home Medications Medication Instructions Recorded Confirmed Type finasteride 5 mg tablet 5 mg PO HS 09/18/18 02/05/22 History flecainide 100 mg tablet 2 tab PO DIRECTED PRN 09/18/18 02/05/22 History metformin 500 mg tablet 1,000 mg PO BID 05/08/21 02/05/22 History omeprazole 20 mg capsule,delayed 20 mg PO QAM 05/08/21 02/05/22 History release rosuvastatin 10 mg tablet 10 mg PO QAM 05/08/21 02/05/22 History losartan 100 mg tablet 100 mg PO QAM 05/10/21 02/05/22 History tamsulosin 0.4 mg capsule (Flomax) 0.4 mg PO BID 05/10/21 02/05/22 History tadalafil 5 mg tablet 5 mg PO DAILY PRN 09/03/21 02/05/22 History acyclovir 400 mg tablet 400 mg PO BID 01/27/22 02/05/22 History metoprolol tartrate 50 mg tablet 75 mg PO TID 01/27/22 02/05/22 History multivitamin with minerals 1 tab PO QAM 01/27/22 02/05/22 History digoxin 125 mcg (0.125 mg) tablet 250 mcg PO DAILY@1600 #30 tab 01/29/22 Rx ([facility]) magnesium oxide 400 mg (241.3 mg 400 mg PO BID #14 tab 01/29/22 02/05/22 Rx magnesium) tablet ondansetron 4 mg disintegrating 4 mg TRANSLINGUAL Q8 PRN 02/05/22 02/05/22 H istory tablet Patient History Medical History Atrial fibrillation Paroxysmal - very rare Per 09/21/20 cardio note- had a fib episode February 2020 after shingles vaccine and Jun 2020 - both episodes lasted several hours- resolved after taking Flecainide as prescribed (takes PRN per cardio instructions) [id number] score =3 for risk factors of age of 64, HTN, and DM2 per cardio records- patient not on AC secondary to bleeding complications in the past (Next cardio visit Sep 2021) Diabetes mellitus, type 2 DENIES NEUROPATHY Enlargement of aortic root Follows with Dr. Sibley Per December 2019 ECHO - Aortic root and proximal ascending aorta are mildly enlarged (4.3/4.1 cm respectively) GERD (gastroesophageal reflux disease) History of melanoma PAST HISTORY Hyperlipidemia Hypertension Surgical History History of biopsy of bladder History of cataract surgery bilt History of colonoscopy History of melanoma excision History of removal of cyst off finger Family History Other No family history of adverse response to anesthesia Social History Smoking Status: Never smoker Cigarettes Per Day: QUIT IN 1987; Second Hand Exposure: No; Hx Alcohol Use: No Hx Substance Use: No Preferred Language: Uzbek Communication Ability: Effective Skin Grader Required: No Beliefs That Will Affect Care: None marital status: Current Living Situation: Spouse Other Information That Helps Us Care for You: No Feels Safe at Home: Yes Safety Concerns: Feels Safe At This Time Assistive Devices: None Review of Systems Review of Systems: All systems reviewed & are unremarkable except as noted in HPI & below Physical Exam Constitutional: Chronically ill in appearance without acute distress Respiratory: Mildly decreased breath sounds the bases Cardiovascular: Rate/Rhythm: + tachycardic and + irregularly irregular Heart Sounds: + murmur (1/6 systolic murmur) Extremities: + edema (1+ bilateral ankle edema) Gastrointestinal (Abdomen): Abdominal bloating consistent with fluid retention Neurologic: PERRL, EOMI, accommodation nl, no face palsy, no dysarthria Results & Data ([facility]) Vital Signs (Past 12 Hours) Vital Signs Temp Pulse Pulse Resp BP BP Pulse Ox 02/05/22 16:45 94 H 02/05/22 15:41 109 H 02/05/22 14:10 118 H 02/05/22 13:30 36.6 C 91 H 18 178/123 H 96 02/05/22 13:11 37.0 C 99 H 14 151/97 H 96 02/05/22 10:00 97 H 18 164/118 H 97 02/05/22 09:30 100 H 15 157/113 H 02/05/22 09:00 109 H 18 153/102 H 94 02/05/22 08:45 109 H 18 94 02/05/22 08:16 37.2 C 97 H 20 158/113 H 94 Laboratory Results Cardiac Enzymes 02/05/22 02/05/22 02/05/22 Range/Units 08:38 12:33 14:20 AST 18 (13-39) U/L Lactate Dehydrogenase 284 H (86-244) U/L Troponin I High Sens 199.5 H* D (0-20) pg/ml B-Natriuretic Peptide 1157 H (0-100) pg/ml 02/05/22 Range/Units 14:20 AST (13-39) U/L Lactate Dehydrogenase (86-244) U/L Troponin I High Sens 206.6 H* (0-20) pg/ml B-Natriuretic Peptide (0-100) pg/ml Coagulation 02/05/22 02/05/22 Range/Units 08:38 12:33 PT 11.0 (9.0-12.0) Seconds B-Natriuretic Peptide 1157 H (0-100) pg/ml CBC 02/05/22 Range/Units 08:38 WBC 5.83 (4.8-10.8) K/uL RBC 2.72 L (4.7-6.1) M/uL Hgb 8.8 L (14.0-18.0) g/dL Hct 27.0 L (42-52) % Plt Count 187 (130-400) K/uL Neut # (Auto) 3.96 (1.4-6.5) K/uL Lymph # (Auto) 0.42 L (1.2-3.4) K/uL Coleman # (Auto) 1.40 H (0.11-0.59) K/uL Eos # (Auto) 0.01 (0-0.5) K/uL Baso # (Auto) 0.01 (0-0.2) K/uL Comprehensive Metabolic Panel 02/05/22 Range/Units 08:38 Sodium 141 (136-145) mmol/L Potassium 3.9 (3.5-5.1) mmol/L Chloride 105 (98-107) mmol/L Carbon Dioxide 29 (21-32) mmol/L BUN 13 (6-23) mg/dl Creatinine 1.09 (0.6-1.4) mg/dl Glucose 133 H (70-99(Fasting)) mg/dl Calcium 8.7 (8.5-10.1) mg/dl AST 18 (13-39) U/L ALT 13 (7-52) U/L Alkaline Phosphatase 78 (34-104) U/L Total Protein 6.3 (6.0-8.3) gm/dl Albumin 3.5 (3.4-5.0) gm/dl Intake and Output 02/05/22 02/05/22 02/05/22 06:59 14:59 22:59 Other: Weight 98.8 kg Weight Measurement Method Standing Scale Patient Weight 02/06/22 06:59 Weight 98.8 kg Diagnostic Findings EKG performed 02/05/2022 reviewed independently atrial fibrillation with mildly elevated ventricular response 108 bpm, nonspecific diffuse T wave flattening, unchanged compared to 02/26/2022 CTA chest, no evidence of pulmonary embolism, moderate pulmonary edema, small bilateral pleural effusions. Radiology report also makes note of nodularity in the lungs measuring up to 4 mm, thyroid nodules.
[2022-02-05] MEDS: MAGNESIUM OXIDE 400 MG TAB PO SCH (20:56)
[2022-02-05] MEDS: FINASTERIDE 5 MG TAB PO SCH (20:56)
[2022-02-05] MEDS: TAMSULOSIN HCL 0.4 MG CAP PO SCH (20:57)
[2022-02-06] MEDS ORDERED: HEPARIN 100 UNIT/ML 5ML FLUSH FLUSH PRN (03:15)
--- NOTE | 2022-02-06 06:30 | Electrocardiogram Report ---
Test Reason : Blood Pressure : / mmHG Vent. Rate : 108 BPM Atrial Rate : 166 BPM P-R Int : 000 ms QRS Dur : 088 ms QT Int : 308 ms P-R-T Axes : 000 013 255 degrees QTc Int : 412 ms Atrial fibrillation with rapid ventricular response Nonspecific T wave abnormality Abnormal ECG When compared with ECG of 27-JAN-2022 14:53, No significant change was found Confirmed by Jordin Tejada ([id number]) on 02/06/2022 6:29:38 AM Referred By: REFERRED SELF Confirmed By:Jordin Tejada
[2022-02-06 06:45] LABS: Basophils # (auto) 0.01 K/uL (0-0.2); Basophils % (auto) 0.2 %; Eosinophils # (auto) 0.01 K/uL (0-0.5); Eosinophils % (auto) 0.2 %; Hematocrit (blood only) 27.8 % (42-52); Hemoglobin 8.9 g/dL (14.0-18.0); Immature Granulocytes # (auto) 0.03 K/uL (0.00-0.02); Immature Granulocytes % (auto) 0.6 %; Lymphocytes # (auto) 1.21 K/uL (1.2-3.4); Lymphocytes % (auto) 25.9 %; Mean Corpuscular Hemoglobin 31.8 pg (25-34); Mean Corpuscular Volume 99.3 fL (80-100); Monocytes # (auto) 0.75 K/uL (0.11-0.59); Monocytes % (auto) 16.1 %; Neutrophils # (auto) 2.66 K/uL (1.4-6.5); Nucleated RBC # (auto) 0.11 K/uL (0-0); Nucleated RBC % (auto) 2.3 %; Platelet Count 207 K/uL (130-400); RDW Coefficient of Variation 19.7 % (11.5-14.5); RDW Standard Deviation 60.4 fL (36.4-46.3); White Blood Count 4.67 K/uL (4.8-10.8)
[2022-02-06 07:01] LABS: Albumin Globulin Ratio 1.4 (0.9-2); Albumin Level 3.4 gm/dl (3.4-5.0); BUN Creatinine Ratio 8.7 (10-20); Bilirubin,Total 0.4 mg/dl (0.2-1.0); Calcium 8.3 mg/dl (8.5-10.1); Creatinine Clr Calc Pharmacy 85.3 ml/min; Est GFR (African American) 85.7 ml/min; Est GFR (Non-African American) 73.9 ml/min; Globulin 2.5 gm/dl (2.5-4.0); Potassium 3.7 mmol/L (3.5-5.1); Total Protein 5.9 gm/dl (6.0-8.3)
[2022-02-06 07:14] LABS: Anisocytosis Present; Polychromasia 1+; Schistocytes 1+
[2022-02-06] MEDS: INSULIN ASPART PER UNIT SC SCH ×4 (07:43→20:42)
[2022-02-06] MEDS: PANTOprazole 40 MG TAB PO SCH (07:44)
[2022-02-06] MEDS: MAGNESIUM OXIDE 400 MG TAB PO SCH ×2 (07:44→20:33)
[2022-02-06] MEDS: METOPROLOL TARTRATE 25 MG TAB PO SCH ×3 (07:44→20:32)
[2022-02-06] MEDS: CEROVITE ADV FORMULA TAB PO SCH (07:45)
[2022-02-06] MEDS: ROSUVASTATIN CALCIUM 10 MG TAB PO SCH (07:45)
[2022-02-06] MEDS: ENOXAPARIN INJ 40 MG/0.4 ML SYR SQ SCH (07:45)
[2022-02-06] MEDS: LOSARTAN POTASSIUM 50 MG TAB PO SCH (07:45)
[2022-02-06] MEDS: TAMSULOSIN HCL 0.4 MG CAP PO SCH ×2 (07:46→20:33)
[2022-02-06] MEDS ORDERED: FUROSEMIDE 40 MG/4 ML VIAL IV ONE (09:03)
--- NOTE | 2022-02-06 16:09 | Hospitalist Progress Note ---
Date of Service February 06, 2022 Assessment & Plan (1) Atrial fibrillation with RVR: Plan: per admitting service notes witth addendum: (2) Hypertension: (3) Hyperlipidemia: Plan: -Admit to telemetry -Continue metoprolol 75 mg 3 times daily and digoxin daily -Digoxin level was checked and is WNL -EKG reviewed on MUSE web by myself, showing afib with RVRV with rate of 108, QT/QTc 308/412, no T wave changes or inversions, no signs of acute ischemia -Consult cardiology - Dr. Sibley -Give Lasix 20 mg IV now, continue daily Lasix dosing pending urine outs -Strict I's and O's, daily weights, fluid restriction -Troponin is elevated at 199.5, previously it was only elevated slightly, will trend q6H -BP Slightly elevated at 164/118, follow - took metoprolol, losartan this morning, digoxin yesterday at 4 pm 7/6 HR controlled continue Metoprolol and Digoxin dyspnea improving given additional Lasix 40mg IV this morning will likely need Lasix PO daily on discharge (4) AML (acute myelogenous leukemia): Plan: - diagnosed in November 2021, currently getting HiDac induction with gemtuzumab (cytarabine and gemtuzumab, most recently had 2nd cycle on 12/28/21 x 6 days) -Check CBC with differential daily, CMP, mag, Phos, uric acid and LDH to monitor for lysis syndrome -Currently platelet count of 187, WBC = 5.83, hemoglobin 8.8, hematocrit 27 improved compared to previous admission 02/06 CBC stable (5) Diabetes mellitus, type 2: Plan: -Continue ISS with Accu-Cheks ACHS -Last A1c = 7.7 on 01/28/2022 -Holding metformin DVT PPx: -teds, scds, Lovenox subcu CODE: Full code Dispo: likely d/c home when medically stable Admission and Anticipated Discharge Date Admission Date: February 05, 2022 Subjective ff up for a fib, etc seen resting in bed, comfortable shortness of breath improving denies chest pain, palpitations, dizziness no other symptoms Review of Systems Review of Systems: all noted and negative except for above Physical Exam Constitutional: General- oriented x 3, not in distress, speaks in sentences with no effort or accessory muscle use Eyes- anicteric Neck- no JVD Lungs- clear breath sounds bilaterally, no rales/wheezes Heart- normal rate,irregularly regular rhythm; no murmurs Abdomen- normal bowel sounds, nondistended, soft, nontender Extremities- no pretibial edema, no calf tenderness Neuro- alert, oriented x 3; no gross focal neurologic deficits Skin- warm & dry Results & Data Results & Data ([facility]) Vital Signs (Past 12 Hours) Vital Signs Temp Pulse Resp BP Pulse Ox 02/06/22 11:32 36.6 C 81 18 157/104 H 94 02/06/22 08:00 100 H 02/06/22 07:48 36.8 C 83 18 160/97 H 93 all noted and reviewed including below
[2022-02-06] MEDS: DIGOXIN 0.25 MG TAB PO SCH (17:05)
--- NOTE | 2022-02-06 20:10 | Cardiology Progress Note ---
Date of Service February 06, 2022 Assessment & Plan (1) Atrial fibrillation with RVR: (2) Fluid retention: (3) Hypertension: (4) AML (acute myelogenous leukemia): Plan: 66-year-old male with recent induction therapy for AML, transiently received anthracycline-based chemotherapy Dec, 2021. Presents with ongoing issues with regards to atrial fibrillation, now with fluid retention. Hemoglobin stable at 8.9, platelet count 207. Continue metoprolol tartrate 75 mg 3 times daily. Continue digoxin 250 mcg daily. For further rate control, add verapamil with caution given potential for worsening fluid retention. Increase furosemide to 40 mg IV twice daily at 7 AM, 1400, add spironolactone. Supplement potassium, repeat CBC and chemistry panel a.m. of 02/06/2022. Hold off on systemic anticoagulation due to recent anemia, thrombocytopenia. Agree with cautious use of Lovenox 40 mg subcu daily for DVT prophylaxis. Admission and Anticipated Discharge Date Admission Date: February 05, 2022 Subjective Patient seen in cardiology follow-up. Fluid retention improved. Ongoing hypertension noted. Atrial fibrillation noted, for the most part 100 bpm, but higher with physical exertion such as walking to the restroom. Physical Exam Constitutional: Ill in appearance, no acute distress Cardiovascular: Rate/Rhythm: + tachycardic and + irregularly irregular Heart Sounds: + murmur (1/6 systolic murmur) Extremities: + edema (1+ bilateral ankle edema) Neurologic: PERRL, EOMI, accommodation nl, no face palsy, no dysarthria Results & Data ([facility]) Vital Signs (Past 12 Hours) Vital Signs Temp Pulse Pulse Resp BP BP Pulse Ox 02/06/22 17:05 121 H 02/06/22 16:09 36.7 C 62 18 149/108 H 94 02/06/22 16:00 87 02/06/22 11:32 36.6 C 81 18 157/104 H 94 Laboratory Results Cardiac Enzymes 02/06/22 Range/Units 06:03 AST 19 (13-39) U/L CBC 02/06/22 Range/Units 06:03 WBC 4.67 L (4.8-10.8) K/uL RBC 2.80 L (4.7-6.1) M/uL Hgb 8.9 L (14.0-18.0) g/dL Hct 27.8 L (42-52) % Plt Count 207 (130-400) K/uL Neut # (Auto) 2.66 (1.4-6.5) K/uL Lymph # (Auto) 1.21 (1.2-3.4) K/uL [place] # (Auto) 0.75 H (0.11-0.59) K/uL Eos # (Auto) 0.01 (0-0.5) K/uL Baso # (Auto) 0.01 (0-0.2) K/uL Comprehensive Metabolic Panel 02/06/22 Range/Units 06:03 Sodium 141 (136-145) mmol/L Potassium 3.7 (3.5-5.1) mmol/L Chloride 104 (98-107) mmol/L Carbon Dioxide 31 (21-32) mmol/L BUN 9 (6-23) mg/dl Creatinine 1.04 (0.6-1.4) mg/dl Glucose 98 (70-99(Fasting)) mg/dl Calcium 8.3 L (8.5-10.1) mg/dl AST 19 (13-39) U/L ALT 13 (7-52) U/L Alkaline Phosphatase 72 (34-104) U/L Total Protein 5.9 L (6.0-8.3) gm/dl Albumin 3.4 (3.4-5.0) gm/dl Intake and Output 02/06/22 02/06/22 02/06/22 06:59 14:59 22:59 Intake Total 300 / 300 Output Total 1025 / 1375 1000 / 1000 Balance -1025 / -1135 -700 / -700 Intake: Oral 300 / 300 Output: Urine 1025 / 1375 1000 / 1000 Other: Weight 98.8 kg Weight Measurement Method Built in [facility] Patient Weight 02/07/22 06:59 Weight 98.8 kg Diagnostic Findings EKG performed today 02/07/2020 reveals atrial fibrillation 102 bpm, nonspecific T wave flattening.
[2022-02-06] MEDS ORDERED: POTASSIUM CHLORIDE CRTAB 20 MEQ TABCR PO STA (20:12)
[2022-02-06] MEDS: FINASTERIDE 5 MG TAB PO SCH (20:32)
[2022-02-06] MEDS: VERAPAMIL HCL 40 MG TAB PO SCH (21:03)
--- NOTE | 2022-02-06 22:50 | Electrocardiogram Report ---
Test Reason : Blood Pressure : / mmHG Vent. Rate : 102 BPM Atrial Rate : 394 BPM P-R Int : 000 ms QRS Dur : 088 ms QT Int : 320 ms P-R-T Axes : 000 -06 -30 degrees QTc Int : 417 ms Atrial fibrillation with rapid ventricular response Indeterminate axis Low voltage QRS Cannot rule out Lateral infarct , age undetermined Nonspecific T wave abnormality Abnormal ECG When compared with ECG of 05-FEB-2022 08:13, Lateral infarct is now Present Confirmed by Jordin Tejada ([id number]) on 02/06/2022 10:49:54 PM Referred By: REFERRED SELF Confirmed By:Jordin Tejada
[2022-02-07] MEDS: FUROSEMIDE 40 MG/4 ML VIAL IV SCH ×2 (06:15→14:44)
[2022-02-07 07:01] LABS: Albumin Globulin Ratio 1.4 (0.9-2); Albumin Level 3.4 gm/dl (3.4-5.0); BUN Creatinine Ratio 9.7 (10-20); Bilirubin,Total 0.5 mg/dl (0.2-1.0); Calcium 8.2 mg/dl (8.5-10.1); Creatinine Clr Calc Pharmacy 84.9 ml/min; Est GFR (African American) 86.1 ml/min; Est GFR (Non-African American) 74.3 ml/min; Globulin 2.4 gm/dl (2.5-4.0); Potassium 3.6 mmol/L (3.5-5.1); Total Protein 5.8 gm/dl (6.0-8.3)
[2022-02-07 07:03] LABS: Basophils # (auto) 0.03 K/uL (0-0.2); Basophils % (auto) 0.6 %; Eosinophils # (auto) 0.01 K/uL (0-0.50); Eosinophils % (auto) 0.2 %; Hematocrit (blood only) 27.7 % (40.1-51.0); Hemoglobin 9.1 g/dl (14.0-18.0); Immature Granulocytes # (auto) 0.05 K/uL (0.00-0.02); Lymphocytes # (auto) 0.67 K/uL (1.2-3.4); Lymphocytes % (auto) 13.3 %; Mean Corpuscular Hemoglobin 32.2 pg (25.0-34.0); Mean Corpuscular Hgb Conc 32.9 g/dL (32.0-36.0); Mean Corpuscular Volume 97.9 fL (80.0-100.0); Mean Platelet Volume 11.4 fL (9.4-12.4); Monocytes # (auto) 1.44 K/uL (0.24-0.82); Monocytes % (auto) 28.7 %; Neutrophils # (auto) 2.82 K/uL (1.4-6.5); Neutrophils % (auto) 56.2 %; Nucleated RBC # (auto) 0.07 K/uL (0-0); Nucleated RBC % (auto) 1.4 %; Platelet Count 198 K/uL (130-400); RDW Coefficient of Variation 19.2 % (11.5-14.5); RDW Standard Deviation 66.4 fL (36.4-46.3); Red Blood Count 2.83 M/uL (4.63-6.08); White Blood Count 5.02 K/ul (4.8-10.8)
[2022-02-07] MEDS: LOSARTAN POTASSIUM 50 MG TAB PO SCH (08:18)
[2022-02-07] MEDS: CEROVITE ADV FORMULA TAB PO SCH (08:18)
[2022-02-07] MEDS: MAGNESIUM OXIDE 400 MG TAB PO SCH ×2 (08:18→20:01)
[2022-02-07] MEDS: SPIRONOLACTONE 25 MG TAB PO SCH (08:18)
[2022-02-07] MEDS: VERAPAMIL HCL 40 MG TAB PO SCH ×2 (08:18→20:01)
[2022-02-07] MEDS: ROSUVASTATIN CALCIUM 10 MG TAB PO SCH (08:18)
[2022-02-07] MEDS: TAMSULOSIN HCL 0.4 MG CAP PO SCH ×2 (08:18→20:01)
[2022-02-07] MEDS: METOPROLOL TARTRATE 25 MG TAB PO SCH ×3 (08:18→20:01)
[2022-02-07] MEDS: PANTOprazole 40 MG TAB PO SCH (08:19)
[2022-02-07] MEDS: ENOXAPARIN INJ 40 MG/0.4 ML SYR SQ SCH (08:20)
[2022-02-07] MEDS: INSULIN ASPART PER UNIT SC SCH ×4 (08:20→20:06)
--- NOTE | 2022-02-07 08:38 | Cardiology Progress Note ---
Date of Service February 07, 2022 Assessment & Plan (1) Atrial fibrillation with RVR: (2) Fluid retention: (3) Hypertension: (4) AML (acute myelogenous leukemia): Plan: 66-year-old male with recent induction chemo therapy for AML, transiently received anthracycline-based chemotherapy Dec, 2021. Presents with ongoing issues with regards to atrial fibrillation, now with fluid retention. Volume status improving with IV diuresis. Hemoglobin stable at 9.1, platelet count 198. Continue metoprolol tartrate 75 mg 3 times daily. Continue digoxin 250 mcg daily. Continue verapamil with caution given potential for worsening fluid retention. Continue to monitor on telemetry. HR between 110-140 prior to morning medications. Well controlled over night. Will assess HR this afternoon prior to making medication adjustments. Volume status improved. Continue furosemide to 40 mg IV twice daily at 7 AM, 1400, and spironolactone 25 mg daily. Supplement potassium, goal of 4.0. Additional 20 meq KCL PO given this am. Hold off on systemic anticoagulation due to recent anemia, thrombocytopenia. Agree with cautious use of Lovenox 40 mg subcu daily for DVT prophylaxis. Plan: Case discussed with Dr. Sibley- will follow. Admission and Anticipated Discharge Date Admission Date: February 05, 2022 Supervising Physician Co-Signing Physician Notes Supervising Physician Attestation: I have personally performed a history and physical examination on the patient. I agree with the nurse practitioner's findings and plan as documented with the following additions. Subjective: Patient states he felt well first thing this morning, after his morning meds, felt tired. Atrial fibrillation in the 90s noted at rest, but he becomes tachycardic with minimal activity up to the 150s still. Most recent blood pressure 151/98. 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 DVT prophylaxis: Lovenox 40 mg SQ every morning Alan Sibley, DO Subjective 67 year old medically complex male. Recently dx with AML requiring a 50 days stay at [facility] for induction of chemotherapy. He received cytarabine/daunorubicin from 12/04 - 12/10/2021. 2nd induction 12/28/21 with 6 days of high dose cytarabine and gemtuzumab. During stay persistent Afib was noted metoprolol was increased and digoxin initiated. Patient required platelet and red blood cell count transfusions, and therefore aspirin was discontinued and anticoagulation was not reinitiate. Presented to [facility] 01/27-01/31 d/t shortness of breath, felt to be due to AFib and anemia. Hemoglobin 7.1>> received 1 unit of packed red blood cells and the repeat was 8.6. Digoxin increased to 250 mcg daily.Echo remained stable during chemo. Represented to [facility] with ongoing shortness of breath due to hypervolemia. Patient diuresed with IV Lasix. For further rate control Verapamil added 02/06. Lasix increased to 40 mg BID, 02/06. Spironolactone 25 mg daily added. Tele: overnight afib 70-80s, this am afib with PVCs 110-140s I&O: -2.6L Weight: 1.1.5kg >> 98.8kg Labs: hgb 8.8>>9.1, renal function stable, K 3.6 Upon entrance into the room patient resting comfortably in bed. Notes some mild nausea since eating breakfast, this is not new for him. No vomiting. Denies any chest pain. Mild [place]- improved from yesterday. No orthopnea or PND. No lower extremity edema. Occasional palpitations, none this morning. No unusual bleeding. States he is feeling much improved since his admission day. Review of Systems Review of Systems: All systems reviewed & are unremarkable except as noted in HPI & below Physical Exam Eyes: PERRL, conjunctivae normal, anicteric sclerae Neck: normal visual inspection and trachea midline Respiratory: normal respiratory effort, lungs clear to auscultation no cough Auscultation: + diminished lung sounds (BL bases); no rales, no rhonchi and no wheezes Cardiovascular: Rate/Rhythm: + tachycardic and + irregularly irregular Heart Sounds: + murmur (1/6 systolic murmur) Vessels: no JVD Extremities: + edema (Trace BL ankle edema) Chest (Breasts): Chest: + vascular access device or port (right sided port- accessed, dressing intact) Musculoskeletal: no cyanosis or clubbing, extremities motor strength 5/5 Skin: no rashes, warm and dry Neurologic: PERRL, EOMI, accommodation nl, no face palsy, no dysarthria Psychiatric: A+Ox3, euthymic affect Results & Data ([facility]) Vital Signs (Past 12 Hours) Vital Signs Temp Pulse Pulse Resp BP BP Pulse Ox 02/07/22 03:54 36.6 C 77 18 105/76 97 02/07/22 00:00 124 H 02/06/22 22:25 36.5 C 62 18 144/88 H 96 Laboratory Results Cardiac Enzymes 02/07/22 Range/Units 05:40 AST 19 (13-39) U/L CBC 02/07/22 Range/Units 05:40 WBC 5.02 (4.8-10.8) K/ul RBC 2.83 L (4.63-6.08) M/uL Hgb 9.1 L (14.0-18.0) g/dl Hct 27.7 L (40.1-51.0) % Plt Count 198 (130-400) K/uL Neut # (Auto) 2.82 (1.4-6.5) K/uL Lymph # (Auto) 0.67 L (1.2-3.4) K/uL [place] # (Auto) 1.44 H (0.24-0.82) K/uL Eos # (Auto) 0.01 (0-0.50) K/uL Baso # (Auto) 0.03 (0-0.2) K/uL Comprehensive Metabolic Panel 02/07/22 Range/Units 05:40 Sodium 140 (136-145) mmol/L Potassium 3.6 (3.5-5.1) mmol/L Chloride 103 (98-107) mmol/L Carbon Dioxide 32 (21-32) mmol/L BUN 10 (6-23) mg/dl Creatinine 1.03 (0.6-1.4) mg/dl Glucose 94 (70-99(Fasting)) mg/dl Calcium 8.2 L (8.5-10.1) mg/dl AST 19 (13-39) U/L ALT 13 (7-52) U/L Alkaline Phosphatase 70 (34-104) U/L Total Protein 5.8 L (6.0-8.3) gm/dl Albumin 3.4 (3.4-5.0) gm/dl Intake and Output 02/06/22 02/07/22 02/07/22 22:59 06:59 14:59 Intake Total 240 / 540 Output Total 2024 Balance -360 / -1485 -425 / 1485 Intake: Oral 240 / 540 Output: Urine 2024
[2022-02-07] MEDS ORDERED: POTASSIUM CHLORIDE CRTAB 20 MEQ TABCR PO STA (09:01)
[2022-02-07] MEDS: DIGOXIN 0.25 MG TAB PO SCH (16:55)
--- NOTE | 2022-02-07 19:00 | Hospitalist Progress Note ---
Date of Service February 07, 2022 Assessment & Plan (1) Atrial fibrillation with RVR: (2) Hypertension: (3) Hyperlipidemia: Plan: -Continue metoprolol 75 mg 3 times daily and digoxin daily -Digoxin level was checked and is WNL -EKG showing afib with RVRV with rate of 108, QT/QTc 308/412, no T wave changes or inversions, no signs of acute ischemia -Consulted cardiology - Dr. Sibley -continue daily Lasix dosing pending urine outs -Strict I's and O's, daily weights, fluid restriction -Spironolactone and verapamil added by cardiology Clinically patient much improved, denies any dyspnea, palpitations, chest pain (4) AML (acute myelogenous leukemia): Plan: - diagnosed in November 2021, currently getting HiDac induction with gemtuzumab (cytarabine and gemtuzumab, most recently had 2nd cycle on 12/28/21 x 6 days) -Check CBC with differential daily, CMP, mag, Phos, uric acid and LDH to monitor for lysis syndrome -Currently platelet count of 187, WBC = 5.83, hemoglobin 8.8, hematocrit 27 improved compared to previous admission 02/06 CBC stable (5) Diabetes mellitus, type 2: Plan: -Continue ISS with Accu-Cheks ACHS -Last A1c = 7.7 on 01/28/2022 -Holding metformin DVT PPx: -teds, scds, Lovenox subcu CODE: Full code Dispo: likely d/c home when medically stable Admission and Anticipated Discharge Date Admission Date: February 05, 2022 Subjective Patient seen in follow-up of Suzie chaparro with RVR, fluid overload, Anemia due to AML Currently patient is walking in his room, reports feeling much better Denies chest pain, shortness of breath, palpitations Also denies any fevers, chills, abdominal pain, nausea vomiting Reports that he did not feel well in the morning but feeling much better now He is inquiring about possibly going home tomorrow Review of Systems Review of Systems: All systems reviewed & are unremarkable except as noted in Subjective Physical Exam Physical Exam: General- oriented x 3, not in distress, speaks in sentences with no effort or accessory muscle use Eyes- anicteric Neck- no JVD Lungs- clear breath sounds bilaterally, no rales/wheezes Heart- normal rate,irregularly regular rhythm; no murmurs Abdomen- normal bowel sounds, nondistended, soft, nontender Extremities- no pretibial edema, no calf tenderness Neuro- alert, oriented x 3; no gross focal neurologic deficits Skin- warm & dry Results & Data Results & Data ([facility]) Vital Signs (Past 12 Hours) Vital Signs Temp Pulse Pulse Resp BP Pulse Ox 02/07/22 16:55 113 H 02/07/22 14:58 120 H 02/07/22 14:53 36.5 C 104 H 18 144/89 H 96 02/07/22 12:10 36.8 C 78 22 151/98 H 92 02/07/22 08:00 110 H Laboratory Results 02/07/22 02/07/22 02/07/22 Range/Units 16:23 11:22 07:09 WBC (4.8-10.8) K/ul RBC (4.63-6.08) M/uL Hgb (14.0-18.0) g/dl Hct (40.1-51.0) % MCV (80.0-100.0) fL MCH (25.0-34.0) pg MCHC (32.0-36.0) g/dL RDW Std Deviation (36.4-46.3) fL RDW Coeff of Anna (11.5-14.5) % Plt Count (130-400) K/uL MPV (9.4-12.4) fL Immature Gran % (Auto) % Neut % (Auto) % Lymph % (Auto) % [place] % (Auto) % Eos % (Auto) % Baso % (Auto) % Neut # (Auto) (1.4-6.5) K/uL Lymph # (Auto) (1.2-3.4) K/uL [place] # (Auto) (0.24-0.82) K/uL Eos # (Auto) (0-0.50) K/uL Baso # (Auto) (0-0.2) K/uL Immature Gran # (Auto) (0.00-0.02) K/uL Absolute Nucleated RBC (0-0) K/uL Nucleated RBC % (auto) % Sodium (136-145) mmol/L Potassium (3.5-5.1) mmol/L Chloride (98-107) mmol/L Carbon Dioxide (21-32) mmol/L Anion Gap (3-11) BUN (6-23) mg/dl Creatinine (0.6-1.4) mg/dl Est Cr Clr Drug Dosing ml/min Est GFR ( Amer) ml/min Est GFR (Non-Af Amer) ml/min BUN/Creatinine Ratio (10-20) Glucose (70-99(Fasting)) mg/dl POC Glucose 173 H 118 H 113 H (70-99) mg/dl Calcium (8.5-10.1) mg/dl Total Bilirubin (0.2-1.0) mg/dl AST (13-39) U/L ALT (7-52) U/L Alkaline Phosphatase (34-104) U/L Total Protein (6.0-8.3) gm/dl Albumin (3.4-5.0) gm/dl Globulin (2.5-4.0) gm/dl Albumin/Globulin Ratio (0.9-2) 02/07/22 02/07/22 02/06/22 Range/Units 05:40 05:40 20:41 WBC 5.02 (4.8-10.8) K/ul RBC 2.83 L (4.63-6.08) M/uL Hgb 9.1 L (14.0-18.0) g/dl Hct 27.7 L (40.1-51.0) % MCV 97.9 (80.0-100.0) fL MCH 32.2 (25.0-34.0) pg MCHC 32.9 (32.0-36.0) g/dL RDW Std Deviation 66.4 H (36.4-46.3) fL RDW Coeff of Anna 19.2 H (11.5-14.5) % Plt Count 198 (130-400) K/uL MPV 11.4 (9.4-12.4) fL Immature Gran % (Auto) 1.0 % Neut % (Auto) 56.2 % Lymph % (Auto) 13.3 % [place] % (Auto) 28.7 % Eos % (Auto) 0.2 % Baso % (Auto) 0.6 % Neut # (Auto) 2.82 (1.4-6.5) K/uL Lymph # (Auto) 0.67 L (1.2-3.4) K/uL [place] # (Auto) 1.44 H (0.24-0.82) K/uL Eos # (Auto) 0.01 (0-0.50) K/uL Baso # (Auto) 0.03 (0-0.2) K/uL Immature Gran # (Auto) 0.05 H (0.00-0.02) K/uL Absolute Nucleated RBC 0.07 H (0-0) K/uL Nucleated RBC % (auto) 1.4 % Sodium 140 (136-145) mmol/L Potassium 3.6 (3.5-5.1) mmol/L Chloride 103 (98-107) mmol/L Carbon Dioxide 32 (21-32) mmol/L Anion Gap 5 (3-11) BUN 10 (6-23) mg/dl Creatinine 1.03 (0.6-1.4) mg/dl Est Cr Clr Drug Dosing 84.9 ml/min Est GFR ( Amer) 86.1 ml/min Est GFR (Non-Af Amer) 74.3 ml/min BUN/Creatinine Ratio 9.7 L (10-20) Glucose 94 (70-99(Fasting)) mg/dl POC Glucose 96 (70-99) mg/dl Calcium 8.2 L (8.5-10.1) mg/dl Total Bilirubin 0.5 (0.2-1.0) mg/dl AST 19 (13-39) U/L ALT 13 (7-52) U/L Alkaline Phosphatase 70 (34-104) U/L Total Protein 5.8 L (6.0-8.3) gm/dl Albumin 3.4 (3.4-5.0) gm/dl Globulin 2.4 L (2.5-4.0) gm/dl Albumin/Globulin Ratio 1.4 (0.9-2) Medications Administered Current Inpatient Medications Acetaminophen (Acetaminophen 325 Mg Tab) 650 mg PO Q4H PRN PRN Reason: Moderate Pain Stop: 03/07/22 14:03 Dextrose (Dextrose 50% 50 Ml Syringe) 25 - 50 ml IV UD PRN; Protocol PRN Reason: Hypoglycemia Protocol Stop: 03/07/22 14:03 Digoxin (Digoxin 0.25 Mg Tab) 0.25 mg PO DAILY@1600 ANA MARÍA Stop: 03/07/22 15:59 Last Admin: 02/07/22 16:55 Dose: 0.25 mg Documented by: Enoxaparin Sodium (Enoxaparin Inj 40 Mg/0.4 Ml Syr) 40 mg SQ QAM ANA MARÍA Stop: 03/08/22 08:59 Last Admin: 02/07/22 08:20 Dose: 40 mg Documented by: Finasteride (Finasteride 5 Mg Tab) 5 mg PO HS ANA MARÍA Stop: 03/07/22 20:59 Last Admin: 02/06/22 20:32 Dose: 5 mg Documented by: Furosemide (Furosemide 40 Mg/4 Ml Vial) 40 mg IV [id number] ANA MARÍA Stop: 03/09/22 06:59 Last Admin: 02/07/22 14:44 Dose: 40 mg Documented by: Glucagon (Glucagon For Inj 1 Mg Vial) 1 mg SQ UD PRN; Protocol PRN Reason: Hypoglycemia Protocol Stop: 03/07/22 14:03 Glucose (Glucose 10 Tabs/Tube) 4 - 8 tabs PO UD PRN; Protocol PRN Reason: Hypoglycemia Protocol Stop: 03/07/22 14:03 Glucose (Glucose 40% Gel 15 Gm Tube) 15 - 30 gm PO UD PRN; Protocol PRN Reason: Hypoglycemia Protocol Stop: 03/07/22 14:03 Heparin Sodium (Porcine) (Heparin 100 Unit/Ml 5ml Flush) 5 ml FLUSH PRN PRN PRN Reason: Flush Stop: 03/08/22 03:14 Insulin Aspart (Insulin Aspart Per Unit) 0 units SC ACHS ANA MARÍA Stop: 03/07/22 16:29 Last Admin: 02/07/22 16:55 Dose: 3 units Documented by: Losartan Potassium (Losartan Potassium 50 Mg Tab) 100 mg PO QAM ANA MARÍA Stop: 03/08/22 08:59 Last Admin: 02/07/22 08:18 Dose: 100 mg Documented by: Magnesium Oxide (Magnesium Oxide 400 Mg Tab) 400 mg PO BID ANA MARÍA Stop: 03/07/22 20:59 Last Admin: 02/07/22 08:18 Dose: 400 mg Documented by: Metoprolol Tartrate (Metoprolol Tartrate 25 Mg Tab) 75 mg PO TID ANA MARÍA Stop: 03/07/22 14:03 Last Admin: 02/07/22 14:44 Dose: 75 mg Documented by: Miscellaneous (Carbohydrates For Hypoglycemia ) 15 - 30 gm PO UD PRN PRN Reason: Hypoglycemia Protocol Stop: 03/07/22 14:03 Multivitamins/Minerals (Cerovite Adv Formula Tab) [facility] Stop: 03/08/22 08:59 Last Admin: 02/07/22 08:18 Dose: 1 tab Documented by: Ondansetron HCl (Ondansetron Inj 2 Mg/Ml 2 Ml Vial) 4 mg IV Q4H PRN PRN Reason: Nausea And Vomiting Stop: 03/07/22 14:03 Last Admin: 02/05/22 14:32 Dose: 4 mg Documented by: Pantoprazole Sodium (Pantoprazole 40 Mg Tab) [facility] [place] Stop: 03/08/22 08:59 Last Admin: 02/07/22 08:19 Dose: 40 mg Documented by: Rosuvastatin Calcium (Rosuvastatin Calcium 10 Mg Tab) [facility] [place] Stop: 03/08/22 08:59 Last Admin: 02/07/22 08:18 Dose: 10 mg Documented by: Spironolactone (Spironolactone 25 Mg Tab) 25 [facility] [place] Stop: 03/09/22 08:59 Last Admin: 02/07/22 08:18 Dose: 25 mg Documented by: Tamsulosin HCl (Tamsulosin Hcl 0.4 Mg Cap) 0.4 mg PO BID [facility] Stop: 03/07/22 20:59 Last Admin: 02/07/22 08:18 Dose: 0.4 mg Documented by: Verapamil HCl (Verapamil Hcl 40 Mg Tab) 40 mg PO BID [facility] Stop: 03/08/22 20:59 Last Admin: 02/07/22 08:18 Dose: 40 mg Documented by:
[2022-02-07] MEDS: FINASTERIDE 5 MG TAB PO SCH (20:00)
[2022-02-08] MEDS ORDERED: METOPROLOL TARTRATE 1 MG/ML VIAL IV STA (05:43)
[2022-02-08] MEDS ORDERED: POTASSIUM CHLORIDE CRTAB 20 MEQ TABCR PO STA (05:44)
[2022-02-08] MEDS ORDERED: ALBUMIN 25% 12.5 GM/50 ML VIAL IV ONE (05:44)
[2022-02-08] MEDS: FUROSEMIDE 40 MG/4 ML VIAL IV SCH (05:59)
[2022-02-08 06:10] LABS: Basophils # (auto) 0.02 K/uL (0-0.2); Basophils % (auto) 0.4 %; Eosinophils # (auto) 0.01 K/uL (0-0.50); Eosinophils % (auto) 0.2 %; Hematocrit (blood only) 27.7 % (40.1-51.0); Hemoglobin 9.1 g/dl (14.0-18.0); Immature Granulocytes # (auto) 0.04 K/uL (0.00-0.02); Immature Granulocytes % (auto) 0.8 %; Lymphocytes # (auto) 0.69 K/uL (1.2-3.4); Lymphocytes % (auto) 13.4 %; Mean Corpuscular Hemoglobin 31.9 pg (25.0-34.0); Mean Corpuscular Hgb Conc 32.9 g/dL (32.0-36.0); Mean Corpuscular Volume 97.2 fL (80.0-100.0); Mean Platelet Volume 10.8 fL (9.4-12.4); Monocytes % (auto) 25.3 %; Neutrophils # (auto) 3.08 K/uL (1.4-6.5); Neutrophils % (auto) 59.9 %; Nucleated RBC # (auto) 0.04 K/uL (0-0); Nucleated RBC % (auto) 0.8 %; Platelet Count 197 K/uL (130-400); RDW Coefficient of Variation 19.4 % (11.5-14.5); RDW Standard Deviation 67.3 fL (36.4-46.3); Red Blood Count 2.85 M/uL (4.63-6.08); White Blood Count 5.14 K/ul (4.8-10.8)
[2022-02-08 06:40] LABS: Albumin Globulin Ratio 1.4 (0.9-2); Albumin Level 3.5 gm/dl (3.4-5.0); BUN Creatinine Ratio 9.6 (10-20); Bilirubin,Total 0.5 mg/dl (0.2-1.0); Calcium 8.4 mg/dl (8.5-10.1); Creatinine Clr Calc Pharmacy 69.5 ml/min; Est GFR (African American) 75.4 ml/min; Globulin 2.5 gm/dl (2.5-4.0); Magnesium 1.9 mg/dl (1.7-2.4); Phosphorus 3.6 mg/dl (2.5-4.9); Potassium 3.5 mmol/L (3.5-5.1)
[2022-02-08] MEDS ORDERED: MAGNESIUM SULFATE / D5W 1 GM/100 ML BAG IV ONE (06:45)
--- NOTE | 2022-02-08 07:44 | Cardiology Progress Note ---
Date of Service February 08, 2022 Assessment & Plan (1) Atrial fibrillation with RVR: (2) Fluid retention: (3) Hypertension: (4) AML (acute myelogenous leukemia): Plan: 66-year-old male with recent induction chemo therapy for AML, transiently received anthracycline-based chemotherapy Dec, 2021. Initially presented with ongoing issues with regards to atrial fibrillation, now with fluid retention. Volume status improving with IV diuresis. Hemoglobin stable at 9.1, platelet count 198. Patient remains tachycardic in the am, improves thru the day and evening- primarily asymptomatic. Continue metoprolol tartrate 75 mg 3 times daily. Continue digoxin 250 mcg daily, recent Dig level stable. Continue verapamil with caution given potential for worsening fluid retention. Continue to monitor on telemetry. HR between 110-140s prior to morning medications. Controlled over night. Patient appears euvolemic on exam. Having positional dizziness as day progresses. Slight increase in his baseline scr, but still within normal range. -Stop IV Lasix, start PO Lasix 40 mg daily. -Continue to trend renal function and electrolytes. Supplement potassium, goal of 4.0. Additional 40 meq KCL PO given this am by primary team Hold off on systemic anticoagulation due to recent anemia, thrombocytopenia. Agree with cautious use of Lovenox 40 mg subcu daily for DVT prophylaxis. Plan: Case discussed with Dr. Sibley- will follow. Admission and Anticipated Discharge Date Admission Date: February 05, 2022 Supervising Physician Co-Signing Physician Notes Supervising Physician Attestation: I have personally performed a history and physical examination on the patient. I agree with the [employer]'s findings and plan as documented with the following additions. Subjective: Patient had difficulty sleeping in the hospital last night. AF present on telemetry. Rates controlled during sleep, elevated with minimal exertion. Exam: Edema much improved. Abdominal bloating improved. Data: K 3.5 this am Assessment and Plan: Persistent AF Volume overload Normal LVEF AML Anemia -Rate control: metoprolol tartrate 75 mg TID , Digoxin 0.25 mg daily, transition to verapamil ER 180 mg daily. Need to DELETE flecainide form pt's medication list. -Holding anticoagulation due to concerns of ongoing anemia (Hgb had been in 7s a week ago). Repeat bone marrow aspiration planned as outpatient. Discharge on furosemide 40 mg PO , one time per day in am. Potassium 10 mg Eq daily. Hospital treatment with spironolactone to be discontinued at discharge. Cardiology follow up to be arranged, should already have appointment pending from prior admission. Alan Arce Maryjo, DO Subjective 67 year old medically complex male. Recently dx with AML requiring a 50 days stay at [facility] for induction of chemotherapy. He received cytarabine/daunorubicin from 12/04 - 12/10/2021. 2nd induction 12/28/21 with 6 days of high dose cytarabine and gemtuzumab. During stay persistent Afib was noted metoprolol was increased and digoxin initiated. Patient required platelet and red blood cell count transfusions, and therefore aspirin was discontinued and anticoagulation was not reinitiate. Presented to [facility] 01/27-01/31 d/t shortness of breath, felt to be due to AFib and anemia. Hemoglobin 7.1>> received 1 unit of packed red blood cells and the repeat was 8.6. Digoxin increased to 250 mcg daily.Echo remained stable during chemo. Represented to [facility] with ongoing shortness of breath due to hypervolemia. Patient diuresed with IV Lasix. For further rate control Verapamil added 02/06. Lasix increased to 40 mg BID, 02/06. Spironolactone 25 mg daily added, 02/06 Tele: Overnight afib 80-90s, this am afib with PVCs /couplets 120-140s I&O: -3.5L Weight: 101.5kg >> 93.2 kg Labs: hgb 8.8>>9.1, plt stable 197, renal function stable, K 3.5 (supplemented with 40 meq of KCL 02/08) Upon entrance into the room patient was ambulating from the bathroom to the bed. Has not yet received his morning medications. Denies any chest pain. Mild [place]. No orthopnea or PND. No lower extremity edema. No palpitations. Occasional dizziness with position changes as day progresses. No unusual bleeding. Review of Systems Review of Systems: All systems reviewed & are unremarkable except as noted in HPI & below Physical Exam Eyes: PERRL, conjunctivae normal, anicteric sclerae Neck: normal visual inspection Respiratory: normal respiratory effort, lungs clear to auscultation no cough Auscultation: + diminished lung sounds (BL bases); no rales, no rhonchi and no wheezes Cardiovascular: Rate/Rhythm: + tachycardic and + irregularly irregular Heart Sounds: + murmur (1/6 systolic murmur) Vessels: no JVD Extremities: no edema Chest (Breasts): Chest: + vascular access device or port (right sided port- accessed, dressing intact) Musculoskeletal: no cyanosis or clubbing, extremities motor strength 5/5 Skin: no rashes, warm and dry Neurologic: PERRL, EOMI, accommodation nl, no face palsy, no dysarthria Psychiatric: A+Ox3, euthymic affect Results & Data ([facility]) Vital Signs (Past 12 Hours) Vital Signs Temp Pulse Pulse Resp BP BP Pulse Ox 02/08/22 06:03 85 151/94 H 02/08/22 02:54 36.5 C 75 18 147/81 H 98 02/08/22 00:23 89 02/07/22 23:20 36.6 C 71 18 142/93 H 95 Laboratory Results Cardiac Enzymes 02/08/22 Range/Units 05:52 AST 18 (13-39) U/L CBC 02/08/22 Range/Units 05:52 WBC 5.14 (4.8-10.8) K/ul RBC 2.85 L (4.63-6.08) M/uL Hgb 9.1 L (14.0-18.0) g/dl Hct 27.7 L (40.1-51.0) % Plt Count 197 (130-400) K/uL Neut # (Auto) 3.08 (1.4-6.5) K/uL Lymph # (Auto) 0.69 L (1.2-3.4) K/uL [place] # (Auto) 1.30 H (0.24-0.82) K/uL Eos # (Auto) 0.01 (0-0.50) K/uL Baso # (Auto) 0.02 (0-0.2) K/uL Comprehensive Metabolic Panel 02/08/22 Range/Units 05:52 Sodium 140 (136-145) mmol/L Potassium 3.5 (3.5-5.1) mmol/L Chloride 103 (98-107) mmol/L Carbon Dioxide 30 (21-32) mmol/L BUN 11 (6-23) mg/dl Creatinine 1.15 (0.6-1.4) mg/dl Glucose 112 H (70-99(Fasting)) mg/dl Calcium 8.4 L (8.5-10.1) mg/dl AST 18 (13-39) U/L ALT 13 (7-52) U/L Alkaline Phosphatase 69 (34-104) U/L Total Protein 6.0 (6.0-8.3) gm/dl Albumin 3.5 (3.4-5.0) gm/dl Intake and Output 02/07/22 02/08/22 02/08/22 22:59 06:59 14:59 Intake Total 410 / 970 50 / 50 Output Total 1850 / 1850 Balance 410 / -880 -1850 / -880 50 / 50 Intake: IV 50 / 50 Albumin 25% 12.5 gm In 50 ml @ 50 / 50 50 mls/hr IV ONE ONE Rx#: [id number] Oral 410 / 970 Output: Urine 1850 / 1850 Other: Other Intake Source sips Weight 93.2 kg Weight Measurement Method Built in [facility]
[2022-02-08] MEDS: INSULIN ASPART PER UNIT SC SCH ×2 (08:27→12:22)
[2022-02-08] MEDS: LOSARTAN POTASSIUM 50 MG TAB PO SCH (08:27)
[2022-02-08] MEDS: SPIRONOLACTONE 25 MG TAB PO SCH (08:27)
[2022-02-08] MEDS: PANTOprazole 40 MG TAB PO SCH (08:28)
[2022-02-08] MEDS: CEROVITE ADV FORMULA TAB PO SCH (08:28)
[2022-02-08] MEDS: METOPROLOL TARTRATE 25 MG TAB PO SCH ×2 (08:28→14:00)
[2022-02-08] MEDS: TAMSULOSIN HCL 0.4 MG CAP PO SCH (08:28)
[2022-02-08] MEDS: ROSUVASTATIN CALCIUM 10 MG TAB PO SCH (08:28)
[2022-02-08] MEDS: MAGNESIUM OXIDE 400 MG TAB PO SCH (08:28)
[2022-02-08] MEDS: ENOXAPARIN INJ 40 MG/0.4 ML SYR SQ SCH (08:39)
[2022-02-08] MEDS: VERAPAMIL HCL 40 MG TAB PO SCH (08:39)
[2022-02-08] MEDS ORDERED: VERAPAMIL HCL 180 MG TABCR PO SCH (11:15)
--- NOTE | 2022-02-08 13:27 | Hospitalist Progress Note ---
Date of Service February 08, 2022 Assessment & Plan (1) Atrial fibrillation with RVR: (2) Hypertension: (3) Hyperlipidemia: Plan: Suzie chaparro with RVR, fluid overload -Continue metoprolol 75 mg 3 times daily and digoxin 0.25 mg daily -Digoxin level was checked and is WNL -EKG showing afib with RVRV with rate of 108, QT/QTc 308/412, no T wave changes or inversions, no signs of acute ischemia -Consulted cardiology - Dr. Sibley -continue daily Lasix dosing pending urine outs -Strict I's and O's, daily weights, fluid restriction -verapamil 180 mg daily added by cardiology, to be continued on discharge -Patient to be discharged on Lasix 40 mg daily, and supplemental potassium Clinically patient much improved, denies any dyspnea, palpitations, chest pain (4) AML (acute myelogenous leukemia): Plan: Anemia secondary to AML, and chemotherapy - diagnosed w/ AML in November 2021, currently getting HiDac induction with gemtuz umab (cytarabine and gemtuzumab, most recently had 2nd cycle on 12/28/21 x 6 days) -Check CBC with differential daily, CMP, mag, Phos, uric acid and LDH to monitor for lysis syndrome -Currently platelet count of 187, WBC = 5.83, hemoglobin 8.8, hematocrit 27 improved compared to previous admission 02/06 CBC stable 02/07 Hgb stable at 9.1 (5) Diabetes mellitus, type 2: Plan: -Continue ISS with Accu-Cheks ACHS -Last A1c = 7.7 on 01/28/2022 -Holding metformin DVT PPx: -scds, Lovenox subcu CODE: Full code Dispo: plan to d/c home Admission and Anticipated Discharge Date Admission Date: February 05, 2022 Subjective Patient seen in follow-up of Suzie chaparro with RVR, fluid overload, Anemia due to AML Currently patient is sitting in the chair, in NAD, feeling well Denies chest pain, shortness of breath, palpitations Also denies any fevers, chills, abdominal pain, nausea vomiting Review of Systems Review of Systems: All systems reviewed & are unremarkable except as noted in Subjective Physical Exam Physical Exam: General- oriented x 3, not in distress, speaks in sentences with no effort or accessory muscle use Eyes- EOMI, PERRL, anicteric Neck- supple, no JVD Lungs- clear breath sounds bilaterally, no rales/wheezes Heart- irregularly irregular rhythm; no murmurs Abdomen- normal bowel sounds, nondistended, soft, nontender Extremities- no pretibial edema, no calf tenderness Neuro- alert, oriented x 3; speech fluent, no facial asymmetry, moves extremity Skin- warm & dry, pale Results & Data Results & Data ([facility]) Vital Signs (Past 12 Hours) Vital Signs Temp Pulse Pulse Resp BP BP Pulse Ox 02/08/22 11:57 36.7 C 57 L 18 135/79 94 02/08/22 08:05 36.5 C 76 18 142/105 H 100 02/08/22 06:03 85 151/94 H 02/08/22 02:54 36.5 C 75 18 147/81 H 98 Laboratory Results 02/08/22 02/08/22 02/08/22 Range/Units 11:24 07:36 05:52 WBC (4.8-10.8) K/ul RBC (4.63-6.08) M/uL Hgb (14.0-18.0) g/dl Hct (40.1-51.0) % MCV (80.0-100.0) fL MCH (25.0-34.0) pg MCHC (32.0-36.0) g/dL RDW Std Deviation (36.4-46.3) fL RDW Coeff of Anna (11.5-14.5) % Plt Count (130-400) K/uL MPV (9.4-12.4) fL Immature Gran % (Auto) % Neut % (Auto) % Lymph % (Auto) % Greer % (Auto) % Eos % (Auto) % Baso % (Auto) % Neut # (Auto) (1.4-6.5) K/uL Lymph # (Auto) (1.2-3.4) K/uL Gre[place] # (Auto) (0.24-0.82) K/uL Eos # (Auto) (0-0.50) K/uL Baso # (Auto) (0-0.2) K/uL Immature Gran # (Auto) (0.00-0.02) K/uL Absolute Nucleated RBC (0-0) K/uL Nucleated RBC % (auto) % Sodium (136-145) mmol/L Potassium (3.5-5.1) mmol/L Chloride (98-107) mmol/L Carbon Dioxide (21-32) mmol/L Anion Gap (3-11) BUN (6-23) mg/dl Creatinine (0.6-1.4) mg/dl Est Cr Clr Drug Dosing ml/min Est GFR ( Amer) ml/min Est GFR (Non-Af Amer) ml/min BUN/Creatinine Ratio (10-20) Glucose (70-99(Fasting)) mg/dl POC Glucose 146 H 131 H (70-99) mg/dl Calcium (8.5-10.1) mg/dl Phosphorus (2.5-4.9) mg/dl Magnesium Cancelled (1.7-2.4) mg/dl Total Bilirubin (0.2-1.0) mg/dl AST (13-39) U/L ALT (7-52) U/L Alkaline Phosphatase (34-104) U/L Total Protein (6.0-8.3) gm/dl Albumin (3.4-5.0) gm/dl Globulin (2.5-4.0) gm/dl Albumin/Globulin Ratio (0.9-2) 02/08/22 02/08/22 02/07/22 Range/Units 05:52 05:52 20:06 WBC 5.14 (4.8-10.8) K/ul RBC 2.85 L (4.63-6.08) M/uL Hgb 9.1 L (14.0-18.0) g/dl Hct 27.7 L (40.1-51.0) % MCV 97.2 (80.0-100.0) fL MCH 31.9 (25.0-34.0) pg MCHC 32.9 (32.0-36.0) g/dL RDW Std Deviation 67.3 H (36.4-46.3) fL RDW Coeff of Anna 19.4 H (11.5-14.5) % Plt Count 197 (130-400) K/uL MPV 10.8 (9.4-12.4) fL Immature Gran % (Auto) 0.8 % Neut % (Auto) 59.9 % Lymph % (Auto) 13.4 % Gre[place] % (Auto) 25.3 % Eos % (Auto) 0.2 % Baso % (Auto) 0.4 % Neut # (Auto) 3.08 (1.4-6.5) K/uL Lymph # (Auto) 0.69 L (1.2-3.4) K/uL Greer # (Auto) 1.30 H (0.24-0.82) K/uL Eos # (Auto) 0.01 (0-0.50) K/uL Baso # (Auto) 0.02 (0-0.2) K/uL Immature Gran # (Auto) 0.04 H (0.00-0.02) K/uL Absolute Nucleated RBC 0.04 H (0-0) K/uL Nucleated RBC % (auto) 0.8 % Sodium 140 (136-145) mmol/L Potassium 3.5 (3.5-5.1) mmol/L Chloride 103 (98-107) mmol/L Carbon Dioxide 30 (21-32) mmol/L Anion Gap 7 (3-11) BUN 11 (6-23) mg/dl Creatinine 1.15 (0.6-1.4) mg/dl Est Cr Clr Drug Dosing 69.5 ml/min Est GFR ( Amer) 75.4 ml/min Est GFR (Non-Af Amer) 65.0 ml/min BUN/Creatinine Ratio 9.6 L (10-20) Glucose 112 H (70-99(Fasting)) mg/dl POC Glucose 114 H (70-99) mg/dl Calcium 8.4 L (8.5-10.1) mg/dl Phosphorus 3.6 (2.5-4.9) mg/dl Magnesium 1.9 (1.7-2.4) mg/dl Total Bilirubin 0.5 (0.2-1.0) mg/dl AST 18 (13-39) U/L ALT 13 (7-52) U/L Alkaline Phosphatase 69 (34-104) U/L Total Protein 6.0 (6.0-8.3) gm/dl Albumin 3.5 (3.4-5.0) gm/dl Globulin 2.5 (2.5-4.0) gm/dl Albumin/Globulin Ratio 1.4 (0.9-2) //22 Range/Units 16:23 WBC (4.8-10.8) K/ul RBC (4.63-6.08) M/uL Hgb (14.0-18.0) g/dl Hct (40.1-51.0) % MCV (80.0-100.0) fL MCH (25.0-34.0) pg MCHC (32.0-36.0) g/dL RDW Std Deviation (36.4-46.3) fL RDW Coeff of Anna (11.5-14.5) % Plt Count (130-400) K/uL MPV (9.4-12.4) fL Immature Gran % (Auto) % Neut % (Auto) % Lymph % (Auto) % [place] % (Auto) % Eos % (Auto) % Baso % (Auto) % Neut # (Auto) (1.4-6.5) K/uL Lymph # (Auto) (1.2-3.4) K/uL [place] # (Auto) (0.24-0.82) K/uL Eos # (Auto) (0-0.50) K/uL Baso # (Auto) (0-0.2) K/uL Immature Gran # (Auto) (0.00-0.02) K/uL Absolute Nucleated RBC (0-0) K/uL Nucleated RBC % (auto) % Sodium (136-145) mmol/L Potassium (3.5-5.1) mmol/L Chloride (98-107) mmol/L Carbon Dioxide (21-32) mmol/L Anion Gap (3-11) BUN (6-23) mg/dl Creatinine (0.6-1.4) mg/dl Est Cr Clr Drug Dosing ml/min Est GFR ( Amer) ml/min Est GFR (Non-Af Amer) ml/min BUN/Creatinine Ratio (10-20) Glucose (70-99(Fasting)) mg/dl POC Glucose 173 H (70-99) mg/dl Calcium (8.5-10.1) mg/dl Phosphorus (2.5-4.9) mg/dl Magnesium (1.7-2.4) mg/dl Total Bilirubin (0.2-1.0) mg/dl AST (13-39) U/L ALT (7-52) U/L Alkaline Phosphatase (34-104) U/L Total Protein (6.0-8.3) gm/dl Albumin (3.4-5.0) gm/dl Globulin (2.5-4.0) gm/dl Albumin/Globulin Ratio (0.9-2) Medications Administered Current Inpatient Medications Acetaminophen (Acetaminophen 325 Mg Tab) 650 mg PO Q4H PRN PRN Reason: Moderate Pain Stop: 03/07/22 14:03 Dextrose (Dextrose 50% 50 Ml Syringe) 25 - 50 ml IV UD PRN; Protocol PRN Reason: Hypoglycemia Protocol Stop: 03/07/22 14:03 Digoxin (Digoxin 0.25 Mg Tab) 0.25 mg PO DAILY@1600 [facility] Stop: 03/07/22 15:59 Last Admin: 02/07/22 16:55 Dose: 0.25 mg Documented by: Enoxaparin Sodium (Enoxaparin Inj 40 Mg/0.4 Ml Syr) 40 mg SQ QAM ANA MARÍA Stop: 03/08/22 08:59 Last Admin: 02/08/22 08:39 Dose: 40 mg Documented by: Finasteride (Finasteride 5 Mg Tab) 5 mg PO HS ANA MARÍA Stop: 03/07/22 20:59 Last Admin: 02/07/22 20:00 Dose: 5 mg Documented by: Furosemide (Furosemide 40 Mg Tab) 40 mg PO DAILY ANA MARÍA Stop: 03/11/22 08:59 Glucagon (Glucagon For Inj 1 Mg Vial) 1 mg SQ UD PRN; Protocol PRN Reason: Hypoglycemia Protocol Stop: 03/07/22 14:03 Glucose (Glucose 10 Tabs/Tube) 4 - 8 tabs PO UD PRN; Protocol PRN Reason: Hypoglycemia Protocol Stop: 03/07/22 14:03 Glucose (Glucose 40% Gel 15 Gm Tube) 15 - 30 gm PO UD PRN; Protocol PRN Reason: Hypoglycemia Protocol Stop: 03/07/22 14:03 Heparin Sodium (Porcine) (Heparin 100 Unit/Ml 5ml Flush) 5 ml FLUSH PRN PRN PRN Reason: Flush Stop: 03/08/22 03:14 Insulin Aspart (Insulin Aspart Per Unit) 0 units SC ACHS ANA MARÍA Stop: 03/07/22 16:29 Last Admin: 02/08/22 12:22 Dose: 3 units Documented by: Losartan Potassium (Losartan Potassium 50 Mg Tab) 100 mg PO QAM ANA MARÍA Stop: 03/08/22 08:59 Last Admin: 02/08/22 08:27 Dose: 100 mg Documented by: Magnesium Oxide (Magnesium Oxide 400 Mg Tab) 400 mg PO BID [facility] Stop: 03/07/22 20:59 Last Admin: 02/08/22 08:28 Dose: 400 mg Documented by: Metoprolol Tartrate (Metoprolol Tartrate 25 Mg Tab) 75 mg PO TID [facility] Stop: 03/07/22 14:03 Last Admin: 02/08/22 08:28 Dose: 75 mg Documented by: Miscellaneous (Carbohydrates For Hypoglycemia ) 15 - 30 gm PO UD PRN PRN Reason: Hypoglycemia Protocol Stop: 03/07/22 14:03 Multivitamins/Minerals (Cerovite Adv Formula Tab) 1 tab PO [facility] Stop: 03/08/22 08:59 Last Admin: 02/08/22 08:28 Dose: 1 tab Documented by: Ondansetron HCl (Ondansetron Inj 2 Mg/Ml 2 Ml Vial) 4 mg IV Q4H PRN PRN Reason: Nausea And Vomiting Stop: 03/07/22 14:03 Last Admin: 02/05/22 14:32 Dose: 4 mg Documented by: Pantoprazole Sodium (Pantoprazole 40 Mg Tab) 40 mg PO [facility] Stop: 03/08/22 08:59 Last Admin: 02/08/22 08:28 Dose: 40 mg Documented by: Potassium Chloride (Potassium Chloride 10 Meq Tabcr) 10 meq PO DAILY [facility] Stop: 03/11/22 08:59 Rosuvastatin Calcium (Rosuvastatin Calcium 10 Mg Tab) 10 mg PO [facility] Stop: 03/08/22 08:59 Last Admin: 02/08/22 08:28 Dose: 10 mg Documented by: Tamsulosin HCl (Tamsulosin Hcl 0.4 Mg Cap) 0.4 mg PO BID [facility] Stop: 03/07/22 20:59 Last Admin: 02/08/22 08:28 Dose: 0.4 mg Documented by: Verapamil HCl (Verapamil Hcl 180 Mg Tabcr) [facility]: 03/10/22 11:14 Last Admin: 02/08/22 12:21 Dose: 180 mg Documented by:
[2022-02-08] MEDS ORDERED: FUROSEMIDE 40 MG TAB PO SCH (14:00)
--- NOTE | 2022-02-08 14:19 | Discharge Summary ---
Date of Service February 08, 2022 Admission HPI Per Admitting Provider This is a 66 yo M with PMhx of AML, diagnosed in November 2021, currently getting HiDac induction with gemtuzumab (cytarabine and gemtuzumab 2nd cycle on 12/28/21 x 6 days), anemia due to antineoplastic chemotherapy, thrombocytopenia, parox afib, DM II, HTN, HLD. He was recently hospitalized here from 01/27-01/31 for fib with RBR where medications were adjusted with increased of metoprolol tartrate 75 mg TID and added digoxin 125 mcg daily. He has established care with cardiology already. Pt notes he started feeling SOB, orthopnea, nausea, and some worsening edema in his legs and abdomen later last night. He continued to feel it this morning so presented to the hospital to get it checked out. His , Danial, who is present is at bedside, states he has had intermittent complaints about this since being discharged from [facility] about a month ago. He denies any specific chest pain or heaviness. He denies Her cardiac history or strong family history.Patient reports that he has been eating and drinking without difficulty, his appetite is slightly down secondary to having chemotherapy recently but not out of the normal. His bowels are moving regularly and has no urinary complaints. He has been taking metoprolol tartrate, losartan and digoxin as directed. He had not been taking flecainide as he tells me he was told not to because of afib. Admission Exam Per Admitting Provider General: awake, alert, no apparent distress, + alopecia Head: Normocephalic, atraumatic ENT: PERRL, EOMI, no pharyngeal exudate, mucous membranes moist Chest: Clear to auscultation, on room air, no adventitious breath sounds Cardiac: irregularly irregular rates in 110s, no murmur, no JVD, normal peripheral pulses, good capillary refill Abdominal: NABS x 4 quadrants, soft, + slightly swollen, +moderately distended, nontender to palpation, no rebound or guarding Extremities: 1+ peripheral edema nonpitting, no erythema, calfs nontender to palpation Psych: Normal mood and affect Neuro: AAO x 3, strength intact bilaterally and rated 5/5, no motor deficits, speech is clear, no peripheral sensory deficits Principal Diagnosis A. fib with RVR Fluid overload Anemia due to AML and chemotherapy Discharge Exam General- oriented x 3, not in distress, speaks in sentences with no effort or accessory muscle use Eyes- EOMI, PERRL, anicteric Neck- supple, no JVD Lungs- clear breath sounds bilaterally, no rales/wheezes Heart- irregularly irregular rhythm; no murmurs Abdomen- normal bowel sounds, nondistended, soft, nontender Extremities- no pretibial edema, no calf tenderness Neuro- alert, oriented x 3; speech fluent, no facial asymmetry, moves extremity Skin- warm & dry, pale Discharge Data Allergies Allergy/AdvReac Type Severity Reaction Status Date / Time bee venom protein (honey bee) Allergy Mild SWELLING Verified 02/05/22 11:17 hydrocodone AdvReac Unknown NAUSEA Verified 02/05/22 11:17 Consultations 02/05/22 11:07 ED Decision to Admit Stat 02/05/22 14:04 Consult Cardiology Routine Ordered Studies 02/05/22 09:56 CT angio chest PE protocol Stat IMPRESSION: 1. No evidence of pulmonary embolism. 2. Cardiomegaly with moderate pulmonary edema. 3. Nodularity in the lungs measuring up to 4 mm. This may be infectious/inflammatory with reactive mediastinal lymph nodes. Follow-up to resolution is recommended. 4. Small bilateral pleural effusions. 5. Thyroid nodules measuring up to 20 mm in diameter. If not previously evaluated, nonemergent thyroid ultrasound can be performed. Hospital Course (1) Atrial fibrillation with RVR: (2) Hypertension: (3) Hyperlipidemia: A. fib with RVR, fluid overload -Continue metoprolol 75 mg 3 times daily and digoxin 0.25 mg daily -Digoxin level was checked and is WNL -EKG showing afib with RVRV with rate of 108, QT/QTc 308/412, no T wave changes or inversions, no signs of acute ischemia -Consulted cardiology - Dr. Sibley -continue daily Lasix dosing pending urine outs -Strict I's and O's, daily weights, fluid restriction -verapamil 180 mg daily added by cardiology, to be continued on discharge -Patient to be discharged on Lasix 40 mg daily, and supplemental potassium Clinically patient much improved, denies any dyspnea, palpitations, chest pain (4) AML (acute myelogenous leukemia): Anemia secondary to AML, and chemotherapy - diagnosed w/ AML in November 2021, currently getting HiDac induction with gemtuzumab (cytarabine and gemtuzumab, most recently had 2nd cycle on 12/28/21 x 6 days) -Check CBC with differential daily, CMP, mag, Phos, uric acid and LDH to monitor for lysis syndrome -Currently platelet count of 187, WBC = 5.83, hemoglobin 8.8, hematocrit 27 improved compared to previous admission 02/06 CBC stable 02/07 Hgb stable at 9.1 (5) Diabetes mellitus, type 2: -Continue ISS with Accu-Cheks ACHS -Last A1c = 7.7 on 01/28/2022 -Holding metformin Incidental findings on CT Nodularity in the lungs measuring up to 4 mm. This may be infectious/inflammatory with reactive mediastinal lymph nodes. Follow-up to resolution is recommended. Thyroid nodules measuring up to 20 mm in diameter. If not previously evaluated, nonemergent thyroid ultrasound can be performed. Total Time Total Time Spent Total Time Spent (In Minutes): 40 Discharge Plan Discharge Items Patient Disposition: Home - Self-Care Reason For Visit: SHORTNESS OF BREATH, ELEVATED TROPONIN Discharge Diagnosis: A. fib with RVR Fluid overload Anemia due to AML and chemotherapy Activity: Per Instructions section Non-emergency contact: Primary Care Provider and Car Shifter Call non-emergency contact if: you have any medication questions and your symptoms worsen Follow-up/Referrals: Anthony Rico MD [Primary Care Provider] - (Date & Time 02/13/2022 2:00 PM Provider Anthony Rico III, MD Department [facility] ) Diet: Carb Consistent or DM2 and Heart Healthy Fluids: 1500ml (6 cups) Addtl Attending Provider Instructions: Follow-up with a primary care physician, the appointment was scheduled for you for February 13. Follow-up with cardiology, as previously scheduled. Continue metoprolol 75 mg 3 times daily, digoxin 0.25 mg daily, and also start taking verapamil 180 daily. Take Lasix 40 mg in the morning. Addtl Senior Manager [employer] Provider Instructions: Call your Primary Care doctor if any of the following symptoms or problems start or get worse: * Shortness of breath or difficulty breathing * Wake up at night short of breath * Chest pain * Cough * Swelling of your hands, feet, or legs * More fatigued or tired with your normal activity * Palpitations - sudden fast heart beats WEIGHT * Weigh yourself every morning after using the bathroom. * Use the same scale. * Wear the same amount of clothing. * Write your weight down on a chart. * Call your Primary Care doctor if you gain more than 2-3 pounds in 1-2 days. MEDICATIONS * Use this discharge instruction sheet for medication instructions. * Take your medications at the time your doctor ordered. * Do not skip a dose of your medicines. * If you miss a dose of medicine, take it as soon as possible, but DO NOT DOUBLE A DOSE. * Read your medicine information when you get home. * Know all of the side effects of your medicine. If in doubt, ask your pharmacist * Call your Primary Care doctor's office if you have any side effects. * Be sure all of your doctors know what medicine and herbs you take (including cold, flu, and herbal medicine). Take the following with you to your follow-up doctor appointments: * Weight Chart * Medication List * List of questions Do not drink excessive alcohol, beer or wine. Pending Studies at Discharge: No Stand-Alone Forms: My [facility], Smoking Cessation Medications and DC Order Prescriptions: New furosemide 40 mg Tablet 40 mg PO DAILY Qty: 30 RF: 0 verapamil 180 mg Tablet Extended Release 180 mg PO QAM Qty: 30 RF: 0 potassium chloride 10 mEq Tablet,Er Particles/Crystals 10 meq PO DAILY Qty: 30 RF: 0 Continued finasteride 5 mg Tablet 5 mg PO HS RF: 0 tadalafil 5 mg tablet 5 mg PO DAILY PRN (Reason: Erectile Dysfunction) RF: 0 acyclovir 400 mg tablet 400 mg PO BID RF: 0 metoprolol tartrate 50 mg tablet 75 mg PO TID RF: 0 multivitamin with minerals Tablet 1 tab PO QAM RF: 0 digoxin [Digitek] 125 mcg (0.125 mg) Tablet 250 mcg PO DAILY@1600 Qty: 30 RF: 2 magnesium oxide 400 mg (241.3 mg magnesium) Tablet 400 mg PO BID Qty: 14 RF: 0 metformin 500 mg Tablet 1,000 mg PO BID RF: 0 omeprazole 20 mg Capsule,Delayed Release(Dr/Ec) 20 mg PO QAM RF: 0 rosuvastatin 10 mg Tablet 10 mg PO QAM RF: 0 tamsulosin [Flomax] 0.4 mg Capsule 0.4 mg PO BID RF: 0 losartan 100 mg Tablet 100 mg PO QAM RF: 0 ondansetron 4 mg tablet,disintegrating 4 mg translingual Q8 PRN (Reason: Nausea) RF: 0 Discontinued flecainide 100 mg Tablet 2 tab PO DIRECTED PRN (Reason: Atrial Fibrillation) RF: 0 Discharge Orders: Discharge Order (Routine); Ordered 02/08/22 Ordered By: Oliver Knowles Admission Data Admit Date/Time: 02/05/22 11:34 Attending Provider: Oliver Knowles Admit Provider: Cher Peña Primary Care Provider: Anthony Rico Other Providers: Cher Pñea ; Alan Sibley ; Calvin Rodriguez
[2022-02-09] MEDS ORDERED: FUROSEMIDE 40 MG TAB PO SCH (09:00)
[2022-02-09] MEDS ORDERED: POTASSIUM CHLORIDE 10 MEQ TABCR PO SCH (09:00)
== END 2022-02-08 16:26 | disposition home or self-care (01) | DRG 308 ==
LOC: ED 08:06 → SUATTDRO 11:34 → 2S 11:34

== ENCOUNTER 2023-06-29 10:53 | Inpatient (IN) ==
--- OUTSIDE RECORDS SUMMARY | 2023-06-29 11:02 | External Medical Summary | Summary of Care ---
Author Name Unknown Organization [facility] Address [address] [place] [address] Phone [phone] Care Team Providers Care Parts Picker Name Role Phone Jacky THOMAS MD, Anthony Moctezuma Primary Care Provider [phone] Reason for Visit * Reason Onset Date Comments Medication Refill 06/23/2023 Encounter Details Date Type Department Care Team (Late st Contact Info) Description 06/23/2023 Refill Hematology/Oncology Treatment, [place] [address] [place] [address] Berlin Killian MD [address] [place] [phone] Acute myeloid leukemia in remission (HCC)* Allergies Active Allergy Reactions Criticality Noted Date Comments Bee Venom Low 10/07/2018 Other reaction(s): SWELLING Nitrofurantoin Monohyd Macro Other (Please comment) 02/14/2014 "Flu-like symptoms, Headache, Fever, Red dots on skin-on legs mainly" Happened during end of 10 day course. documented as of this encounter (statuses as of 06/23/2023) Medications Medication Sig Dispensed Refills Start Date End Date Status MULTIVITAMIN/MIN ERAL FORMULA TABS OR 1 TABLET DAILY 30 0 03/21/2000 Active OneTouch UltraSoft Lancets test once daily 100 Each 11 06/19/2020 Active Losartan Potassium 100 MG Oral Tablet (Cozaar)Indicati ons:HTN, goal below 140/80 Take 1 Tablet (100 mg) by mouth in the morning. 30 Tablet 11 07/15/2022 Active Amiodarone HCl 200 MG Oral Tablet (Cordarone) One tablet by mouth daily 30 Tablet 11 09/16/2022 Active Eplerenone 25 MG Oral Tablet (Inspra)Indicati ons:Chronic diastolic heart failure (HCC),HTN, goal below 140/90 Take 1 Tablet by mouth in the morning. 30 Tablet 11 09/16/2022 Active Tadalafil 5 MG Oral Tablet (Cialis) Take 1 Tablet by mouth in the morning. 90 Tablet 3 09/25/2022 Active Rosuvastatin Calcium 10 MG Oral Tablet (Crestor)Indicat ions:Dyslipidemi a, goal LDL below 70 Take 1 Tablet by mouth in the morning. 90 Tablet 3 09/30/2022 Active OneTouch Verio In Vitro Strip (Glucose Blood) Once daily E11.9 100 Strip 11 11/20/2022 Active Escitalopram Oxalate 10 MG Oral Tablet (Lexapro) 1/2 daily x 8 then 1 daily 30 Tablet 5 11/20/2022 Active Glucose Blood In Vitro Strip OneTouch Ultra Mini test strips. Use once daily. E11.9 100 Strip 11 11/21/2022 Active Ondansetron HCl 4 MG Oral TabletIndication s:Acute myeloid leukemia in remission (HCC) Take 1 Tablet by mouth every 6 hours as needed for Nausea. 30 Tablet 3 11/22/2022 Active Cresemba 186 MG Oral Capsule (Isavuconazonium Sulfate)Indicati ons:Acute myeloid leukemia in remission (HCC) Take 2 Capsules by mouth in the morning. 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 30 g 1 01/08/2023 Active Apixaban 5 MG Oral Tablet (Eliquis) TWICE A DAY 0 12/31/2022 Active Finasteride 5 MG Oral Tablet (Proscar)Indicat ions:Nocturia,In complete emptying of bladder Take 1 Tablet by mouth every night at bedtime. 90 Tablet 3 02/17/2023 Active Potassium Chloride Gloria ER 10 MEQ Oral Tablet Extended Release Take 1 Tablet by mouth in the morning. 30 Tablet 11 03/10/2023 Active metFORMIN HCl ER 500 MG Oral Tablet Extended Release 24 Hour Take 2 Tablets by mouth in the morning and 2 Tablets before bedtime. 360 Tablet 0 03/18/2023 Active Furosemide 40 MG Oral Tablet (Lasix)Indicatio ns:Chronic diastolic heart failure (HCC) Take 1 Tablet by mouth in the morning. 30 Tablet 11 04/02/2023 Active amLODIPine Besylate 2.5 MG Oral Tablet (Norvasc) Take 1 Tablet by mouth in the morning. 30 Tablet 5 05/15/2023 Active Omeprazole 20 MG Oral Capsule Delayed Release (PriLOSEC) Take 1 Capsule by mouth in the morning. 1 hour before the first meal of the day. 90 Capsule 3 05/22/2023 Active Tamsulosin HCl 0.4 MG Oral Capsule (Flomax) Take 2 Capsules by mouth in the morning. 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 300 mL 1 06/09/2023 Active oxyCODONE HCl 5 MG Oral Tablet (Oxy IR)Indications:A cute myeloid leukemia in relapse (HCC) Take 1 Tablet by mouth every 8 hours as needed for Pain, Moderate. 30 Tablet 0 06/19/2023 Active dexAMETHasone 0.5 MG/5ML Oral Solution (Decadron)Indica tions:Acute myeloid leukemia in remission (HCC),Oral ulcer 10 mL swish for 2 minutes and then spit, 4 times a day. 240 mL 1 06/19/2023 Active Cefpodoxime Proxetil 200 MG Oral TabletIndication s:Acute myeloid leukemia in remission (HCC) Take 1 Tablet by mouth in the morning and 1 Tablet before bedtime. 180 Tablet 1 06/23/2023 Active Acyclovir 400 MG Oral Tablet (Zovirax)Indicat ions:Acute myeloid leukemia in remission (HCC) Take 1 Tablet by mouth in the morning and 1 Tablet before bedtime. 180 Tablet 1 06/23/2023 Active Cefpodoxime Proxetil 200 MG Oral Tablet Take 1 Tablet by mouth in the morning and 1 Tablet before bedtime. 60 Tablet 6 11/22/2022 06/23/2023 Discontinued (Refill) Acyclovir 400 MG Oral Tablet (Zovirax)Indicat ions:Acute myeloid leukemia in remission (HCC) Take 1 Tablet by mouth in the morning and 1 Tablet before bedtime. 60 Tablet 5 06/02/2023 06/23/2023 Discontinued (Refill) Hospital, Clinic, or Other Facility Administered Medication Ordered Dose Route Frequency Start Date End Date Status Albuterol Sulfate (Proventil) (2.5 MG/3ML) 0.083% inhalation solution 2.5 mgIndications:ALCANTARA (dyspnea on exertion) 2.5 mg NEBULIZER PRN 08/15/2022 08/15/2023 Act darlene Albuterol Sulfate (Proventil) (5 MG/ML) 0.5% *conc* inhalation solution 2.5 mgIndications:ALCANTARA (dyspnea on exertion) 2.5 mg NEBULIZER PRN 08/15/2022 08/15/2023 Act darlene documented as of this encounter (statuses as of 06/23/2023) Active Problems Problem Noted Date Diagnosed Date Encounter for central line care 01/06/2023 Thrombocytopenia 11/20/2022 AML (acute myeloid leukemia) in relapse 11/20/19 23 Bradycardia 05/10/2022 History of atrial fibrillation 05/08/2022 Gastroesophageal reflux disease without esophagi tis 05/08/2022 COVID-19 05/08/2022 Overview: 04/23/2022 Chronic diastolic heart failure 03/13/2022 Chemotherapy induced nausea and vomiting 022 Pancytopenia due to chemotherapy 01/03/2022 Bacteremia 01/03/2022 Febrile neutropenia 12/22/2021 Functional diarrhea 12/18/2021 Acute myeloid leukemia in relapse 11/21/2021 Encounter for antineoplastic chemotherapy 2021 Drug-induced nausea and vomiting 11/21/2021 Enlargement of aortic root 09/25/2015 BPH without obstruction/lower urinary tract symp toms 03/03/2014 Family history of cardiovascular disease 012 Dyslipidemia, goal LDL below 70 01/01/2012 Anticoagulation management encounter 09/05/2010 nursing home current use of anticoagulant therapy 0 09/05/2010 Overview: ICD-10 update of inactive term Type 2 diabetes mellitus wit h hemoglobin A1c goal of less than 7.0% 06/01/2009 Overview: Per Diabetes Taxonomy. ICD-10 update of inactive term Type 2 diabetes mellitus wit h hemoglobin A1c goal of less than 7.0% 02/10/2008 Overview: Per Diabetes Taxonomy. ICD-10 update of inactive term ADVANCE DIRECTIVE INFORMATION 02/12/2005 Overview: No, Advance Directive brochure given to patient at prior appointment. HTN, goal below 140/90 Overview: Per HTN Taxonomy. HX-MALIG SKIN MELANOMA,chest 03/22/00 Persistent atrial fibrillation documented as of this encounter (statuses as of 06/23/2023) Resolved Problems Problem Noted Date Diagnosed Date Resolved Date Malnutrition of moderate degree 01/10/2022 11/20/2022 PAF (paroxysmal atrial fibrillation) 06/25/2017 02/22/2022 Abnormal EKG 05/16/2014 07/05/2019 Calculus of ureter 03/26/2014 9 Calculus of ureter 03/03/2014 4 Acute cystitis 02/14/2014 03/03/2014 Other chronic cystitis 02/14/201407/05 HTN, goal below 140/80 03/23/201210/11 Overview: Per HTN Protocol #27. Hematuria 10/04/2010 03/03/2014 Overview: ICD-10 update of inactive term HTN, GOAL BELOW 130/80 08/31/200903/26 Overview: Per HTN Taxonomy. Impaired fasting glucose 06/15/200404/2008 compound nevus,rt chest 09/09/02 09/22/2002 07/05/2019 Other seborrheic keratosis 09/09/2002 1 09/05/2018 Ocular hypertension 06/25/20 17 documented as of this encounter (statuses as of 06/23/2023) Immunizations Name Administration Dates Next Due COVID-19 mRNA, LNP-s, No Pre serve, 2-Dose Series (Pfizer) 06/19/2021,10/24/2020,10/03/2020 H1N1 2009 Influenza, IM 06/14/2009 Hepatitis B, 20+ yrs 04/13/2014,11/26/2013,10/11 Pneumococcal Conjugate Vacc, 13 Valent (Prevnar) 03/18/2019 Pneumococcal Polysaccharide PPV23 (Pneumovax) 04/21/2020,04/29/2007 SEASONAL INFLUENZA, PF, 6 M & Above, IM , (FLULAVAL or FLUZONE) 05/09/2018,05/30/2017 Season Influenza, Quad, PF, Adjuvanted, 65+ Yrs, IM (FLUAD) 04/14/2020 Seasonal Influenza, Quadriva lent Hd (Fluzone Hd) 04/05/2022,04/18/2021 Seasonal Influenza, Quadriva lent, No Preserve, IM 05/17/2016 Seasonal Influenza, Split, I IV3, With Preserve, Inj 04/13/2015,04/06/2014,04/24/2013,04/10,05/28/2011,05/10/2010,05/04/2009 ,05/12/2008,05/18/2007,06/11/2006 Seasonal Influenza, Trivalen t, High Dose, No Preserve, IM 04/23/2019 TDAP (age 11 and older)(Adacel) 04/09/2011 Varicella Zoster Vaccine (Adult) 04/13/2014 Zoster Vaccine Recombinant (Shingrix) 02/06/2020 ,08/25/2019 documented as of this encounter Social History Tobacco Use Types Packs/Day Years Used Date Smoking Tobacco: Former Cigarettes 0.3 10 Q uit: 08/13/1987 Smokeless Tobacco: Never Alcohol Use Standard Drinks/Week Comments Not Currently 0 (1 standard drink = 0.6 oz pur e alcohol) occasional PHQ-2 Answer Date Recorded PHQ Adult Total Score 0 05/30/2022 Hunger Vital Sign Answer Date Recorded Within the past 12 months, y ou worried that your food would run out before you got the money to buy more. Never true 11/16/19 23 Within the past 12 months, t he food you bought just didn't last and you didn't have money to get more. Never true 11/15/2022 Sex and Gender Information Value Date Recorded Sex Assigned at Male 02/01/2022 4:50 PM EDT Gender Identity Male 02/01/2022 4:50 PM EDT Sexual Orientation Straight 02/01/2022 4: 50 PM EDT Job Start Date Occupation Industry Not on file Not on file Not on file documented as of this encounter Functional Status Functional Status Response Date of Assess ment Are you deaf or do you have serious difficulty hearing? No-some decreased hearing in L ear 06/05/2022 Are you blind or do you have serious difficulty seeing, even when wearing glasses? No 06/05/2022 Do you have serious difficul ty walking or climbing stairs? (5 years old or older) No 06/06/2022 Do you have difficulty dress ing or bathing? (5 years old or older) No 06/05/2022 Because of a physical, menta l, or emotional condition, do you have difficulty doing errands alone such as visiting a doctor s office or shopping? (15 years old or older) No 06/05/2022 Cognitive Status Response Date of Assessm ent Because of a physical, menta l, or emotional condition, do you have serious difficulty concentrating, remembering, or making decisions? (5 years old or older) No 06/05/2022 documented as of this encounter Miscellaneous Notes * Telephone Encounter - Berlin Killian MD - 06/23/2023 1:26 PM EST E-prescribed Berlin Killian MD Hem/Onc * Telephone Encounter - Genie Garcia RN - 06/23/2023 9:09 AM EST Pended cefpodoxime and acyclovir as 90 day supply. documented in this encounter Plan of Treatment Upcoming Encounters Date Type Department Care Team (Late st Contact Info) Description 06/24/2023 1:20 PM EST Office Visit Otolaryngology, [facility] [address] [place] [phone] Anup Liao PA-C [address] [place], [place] [address] 06/30/2023 8:30 AM EST Laboratory Laboratory [facility] [address] [place], [place] [phone] Park, Lab Scenery [address] [place] [address] 06/30/2023 9:00 AM EST Nurse Only Hematology/Oncology [facility] [address] [place] [address] Park, Nurse Hem Onc Scenery [address] [place] [address] 07/03/2023 8:30 AM EST Laboratory Laboratory [facility] [address] [place] [phone] [place], Lab Scenery [address] [place] [address] 07/03/2023 9:00 AM EST Nurse Only Hematology/Oncology [facility] [address] [place] [address] Park, Nurse Hem Onc Scenery [address] [place] [address] 07/07/2023 8:30 AM EST Laboratory Laboratory [facility] [address] [place] [address] [place], Lab Scenery [address] [place] [address] 07/07/2023 9:00 AM EST Nurse Only Hematology/Oncology [facility] [address] [place] [address] Park, Nurse Hem Onc Scenery [address] [place] [address] 07/10/2023 8:30 AM EST Laboratory Laboratory [facility] [address] [place] [address] [place], Lab Scenery [address] [place] [address] 07/10/2023 9:00 AM EST Nurse Only Hematology/Oncology [facility] [address] [place] [address] Park, Nurse Hem Onc Scenery [address] [place] [address] 07/14/2023 8:30 AM EST Laboratory Laboratory [facility] [address] [place] [address] [place], Lab Scenery [address] [place] [address] 07/14/2023 9:00 AM EST Nurse Only Hematology/Oncology [facility] [address] [place] [address] Park, Nurse Hem Onc Scenery [address] [place] [address] 07/17/2023 8:30 AM EST Laboratory Laboratory [facility] [address] [place] [address] Park, Lab Scenery [address] [place] [address] 07/17/2023 9:00 AM EST Nurse Only Hematology/Oncology [facility] [address] [place] [address] Park, Nurse Hem Onc Scenery [address] [place] [address] 07/21/2023 8:30 AM EST Laboratory Laboratory [facility] [address] [place] [address] [place], Lab Scenery [address] [place] [address] 07/21/2023 9:00 AM EST Nurse Only Hematology/Oncology [facility] [address] [place] [address] Park, Nurse Hem Onc Scenery [address] [place] [address] 07/24/2023 8:30 AM EST Laboratory Laboratory [facility] [address] [place] [address] Park, Lab Scenery [address] [place] [address] 07/24/2023 9:00 AM EST Nurse Only Hematology/Oncology [facility] [address] [place] [address] Park, Nurse Hem Onc Scenery [address] [place], [place] [address] 07/24/2023 9:40 AM EST Office Visit Family Practice [facility] [address] [place] [address] Huron III, Anthony Moctezuma MD [address] [place] [address] 07/29/2023 8:30 AM EST Laboratory Laboratory [facility] [address] [place] [phone] [place], Lab Scenery [address] [place] [address] 07/29/2023 9:00 AM EST Nurse Only Hematology/Oncology [facility] [address] [place] [address] Park, Nurse Hem Onc Scenery [address] [place] [address] 07/31/2023 8:30 AM EST Laboratory Laboratory [facility] [address] [place] [address] Park, Lab Scenery [address] [place] [address] 07/31/2023 9:00 AM EST Nurse Only Hematology/Oncology [facility] [address] [place] [address] Park, Nurse Hem Onc Scenery [address] [place] [address] 08/05/2023 8:30 AM EST Laboratory Laboratory [facility] [address] [place] [address] Park, Lab Scenery [address] [place] [address] 08/05/2023 9:00 AM EST Nurse Only Hematology/Oncology [facility] [address] [place] [address] Park, Nurse Hem Onc Scenery [address] [place] [address] 08/07/2023 8:30 AM EST Laboratory Laboratory [facility] [address] [place] [address] Park, Lab Scenery [address] [place] [address] 08/07/2023 9:00 AM EST Nurse Only Hematology/Oncology [facility] [address] [place] [address] Park, Nurse Hem Onc Scenery [address] [place] [address] 08/11/2023 8:30 AM EST Laboratory Laboratory [facility] [address] [place] [address] Park, Lab Scenery [address] [place] [address] 08/11/2023 9:00 AM EST Nurse Only Hematology/Oncology [facility] [place] [address] [place], [place] [address] Park, Nurse Hem Onc Scenery [address] [place], [place] [address] 08/14/2023 8:30 AM EST Laboratory Laboratory [facility] [place] [address] [place], [place] [phone] Park, Lab Scenery [address] [place] [address] 08/14/2023 9:00 AM EST Nurse Only Hematology/Oncology [facility] [place] [address] [place], [place] [address] Park, Nurse Hem Onc Scenery [address] [place], [place] [address] 08/15/2023 11:00 AM EST [facility] [address] [facility]y Garc[facility] CR[facility] [address] [facility] [address] 08/18/2023 8:30 AM EST Laboratory Laboratory [facility] Dorothy [place] [address] [place], [place] [phone] [place], Lab Scenery [address] [place] [address] 08/18/2023 9:00 AM EST Nurse Only Hematology/Oncology [facility] [place] [address] [place] [address] Park, Nurse Hem Onc Scenery [address] [place], [place] [address] 08/21/2023 8:30 AM EST Laboratory Laboratory [facility] [place] [address] [place], [place] [phone] Park, Lab Scenery [address] [place], [place] [address] 08/21/2023 9:00 AM EST Nurse Only Hematology/Oncology [facility] [address] [place], [place] [address] Park, Nurse Hem Onc Scenery [address] [place] [address] 08/25/2023 8:30 AM EST Laboratory Laboratory [facility] [place] [address] [place], [place] [phone] [place], Lab Scenery [address] [place] [address] 08/25/2023 9:00 AM EST Nurse Only Hematology/Oncology [facility] [address] [place] [address] Park, Nurse Hem Onc Scenery [address] [place] [address] 08/29/2023 9:15 AM EST Office Visit Hematology/Oncology [facility] [address] [place] [address] Berlin Killian MD [address] [place], [place] [address] 10/03/2023 10:30 AM EST Office Visit Urology, [facility] [address] [facility] [place] [address] Kd Dickens MD [address] [place] [address] 03/18/2024 11:00 AM EDT Office Visit Dermatology [facility] [address] [place], [place] [address] Erica Rashid MD [address] [place] [address] Health Maintenance Due Date Last Done Comments Diabetic Eye Exam 09/14/2019 09/14/2018, , 07/07/2017, Additional history exists DTaP,Tdap,and Td Vaccines (2 - Td or Tdap) 04/09/2021 04/09/2011 COVID-19 Vaccine (4 - season) 2023 06/19/2021, 10/24/2020, 10/03/2020 Influenza Vaccine (FLU shot) (#1) 2023 04/05/2022, 04/18/2021, 04/18/2021, Additional history exists Depression Screening 05/30/2023 05/30/2022 Diabetic Foot Exam 05/30/2023 05/30/2022, 0 04/18/2021, 03/17/2020, Additional history exists B-12 11/15/2023 11/14/2022, 10/02, 04/12/2021, Additional history exists HbA1c 12/08/2023 06/09/2023, 11/02, 05/31/2022, Additional history exists Albumin/Creatinine Ratio 04/08/2024 023, 02/13/2022, 06/23/2018, Additional history exists GFR 06/23/2024 06/23/2023, 06/04, 06/12/2023, Additional history exists COLONOSCOPY-EVERY 5 YRS AGES 18-100 05/09/2025 05/09/2020, 05/04/2015, 05/04/2015, Additional history exists Lipid Panel 10/11/2026 10/11/2021, 12/02, 12/29/2019, Additional history exists Hepatitis B Completed 04/13/2014, 11/03, 10/11/2013 AAA Screening Completed 08/20/2019, 01/03, 09/28/2010 Zoster Vaccines Completed 02/06/2020, 08/05, 04/13/2014 Pneumococcal Vaccine: 65+ Years Completed 04/21/2020, 03/18/2019, 04/29/2007 GARDASIL-HPV IMMUNIZATION SERIES Aged Out No longer eligible based on patient's age to complete this topic MENINGOCOCCAL (MENACTRA/MENVEO) Aged Out No longer eligible based on patient's age to complete this topic documented as of this encounter Medical Devices Implanted Type Area Knife Setter Device Identifier Shelf Expiration Date Model / Serial / Lot Port Implant W/8f Poly Cath - [id number] Implanted:Qty : 1 on 11/23/2021 by Tae Porras, DO at [facility] Right: Chest CR BARD : [employer] [id number] 09/03/2022 [id number] / / [id number] Port Implant W/8f Poly Cath - [id number] Implanted:Qty : 1 on 12/26/2022 by Fabián Del Cid, DO at [facility] Right: Chest CR BARD : PERIPHERAL VASCULAR [id number] 04/03/2024 [id number] / / [id number] documented as of this encounter Visit Diagnoses Diagnosis Acute myeloid leukemia in remission (HCC)- Primary Acute myeloid leukemia in remission documented in this encounter Advance Directives Documents on File Type Date Recorded Patient Vp Production Expl anation Power of Real Estate Consultant 06/06/2022 POWER OF A TTORNEY Latest Code Status on File Code Status Date Activated Date Inactivated Comments Full Code 06/05/2022 4:21 PM 06/09/2022 7:28 PM This order reflects the patients wishes and were consensually agreed upon. Question Answer Comments Discussion of Advance Directives occurred with: Patient Code Status History Code Status Date Activated Date Inactivated Comments Full Code 05/08/2022 8:29 PM 05/11/2022 7:22 PM This order reflects the patients wishes and were consensually agreed upon. Question Answer Comments Discussion of Advance Directives occurred with: Family and son present for con versation Does the patient have a Living Will? No Does the patient have Health Care Power of Real Estate Consultant? No Full Code 03/12/2022 5:18 PM 03/15/2022 7:16 PM This o rder reflects the patients wishes and were consensually agreed upon. Question Answer Comments Discussion of Advance Directives occurred with: Patient Does the patient have a Living Will? No Does the patient have Health Care Power of Real Estate Consultant? No Full Code 12/04/2021 5:18 PM 01/22/2022 8:17 PM This o rder reflects the patients wishes and were consensually agreed upon. Question Answer Comments Discussion of Advance Directives occurred with: Patient Does the patient have a Living Will? No Does the patient have Health Care Power of Real Estate Consultant? No Care Teams Parts Picker Relationship Specialty Start Date End Date Anthony Rico III, MD [address] [place] [address] PCP - General 03/18/1996 documented as of this encounter
--- OUTSIDE RECORDS SUMMARY | 2023-06-29 11:02 | External Medical Summary | Summary of Care ---
Author Name Unknown Organization [facility] Address [address] [place] [address] Phone [phone] Care Team Providers Care Chemists Name Role Phone Jacky THOMAS MD, Anthony Moctezuma Primary Care Provider [phone] Reason for Visit * Reason Comments NEW PATIENT Mouth sore * Evaluate & Treat - Unlimited Visits (Within 3 days (urgent)) - Pending Review Specialty Diagnoses / Procedures Referred By Gurmeet schreiber Referred To Contact Otolaryngology Diagnoses Oral ulcer Acute myeloid leukemia in remission (HCC) Berlin Killian MD [address] [place] [id number] Referral ID Status Reason Start Date Expiration Date Visits Requested Visits Authorized [id number] Pending Review Specialty Services Required [phone] Encounter Details Date Type Department Care Team (Late st Contact Info) Description 06/24/2023 1:20 PM EST Office Visit Otolaryngology, Zhou Carrera [address] [place] [address] Anup Liao PA-C [address] [place] [phone] Tongue discoloration*; Tongue lesion Allergies Active Allergy Reactions Criticality Noted Date Comments Bee Venom Low 10/07/2018 Other reaction(s): SWELLING Nitrofurantoin Monohyd Macro Other (Please comment) 02/14/2014 "Flu-like symptoms, Headache, Fever, Red dots on skin-on legs mainly" Happened during end of 10 day course. documented as of this encounter (statuses as of 06/25/2023) Medications Medication Sig Dispensed Refills Start Date End Date Status MULTIVITAMIN/MINERA L FORMULA TABS OR 1 TABLET DAILY 30 0 03/21/2000 Active OneTouch UltraSoft Lancets test once daily 100 Each 11 06/19/2020 Active Losartan Potassium 100 MG Oral Tablet (Cozaar)Indications :HTN, goal below 140/80 Take 1 Tablet (100 mg) by mouth in the morning. 30 Tablet 11 07/15/2022 Active Amiodarone HCl 200 MG Oral Tablet (Cordarone) One tablet by mouth daily 30 Tablet 11 09/16/2022 Active Eplerenone 25 MG Oral Tablet (Inspra)Indications :Chronic diastolic heart failure (HCC),HTN, goal below 140/90 Take 1 Tablet by mouth in the morning. 30 Tablet 09/16/2022 Active Tadalafil 5 MG Oral Tablet (Cialis) Take 1 Tablet by mouth in the morning. 90 Tablet 3 09/25/2022 Active Rosuvastatin Calcium 10 MG Oral Tablet (Crestor)Indication s:Dyslipidemia, goal LDL below 70 Take 1 Tablet [...] 11/21/2022 Active Ondansetron HCl 4 MG Oral TabletIndications:A cute myeloid leukemia in remission (HCC) Take 1 Tablet by mouth every 6 hours as needed for Nausea. 30 Tablet 3 11/22/2022 Active Cresemba 186 MG Oral Capsule (Isavuconazonium Sulfate)Indications :Acute myeloid leukemia in remission (HCC) Take 2 Capsules by mouth in the morning. 70 Capsule 6 12/24/2022 Active Lidocaine-Prilocain e 2.5-2.5 % External Cream (Emla)Indications:A cute myeloid leukemia in relapse (HCC) APPLY TO SKIN OVER MEDIPORT & COVER 1HR PRIOR TO ACCESSING. 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 300 mL 1 06/09/2023 Active oxyCODONE HCl 5 MG Oral Tablet (Oxy IR)Indications:Acut e myeloid leukemia in relapse (HCC) Take 1 Tablet by mouth every 8 hours as needed for Pain, Moderate. 30 Tablet 0 06/19/2023 Active dexAMETHasone 0.5 MG/5ML Oral Solution (Decadron)Indicatio ns:Acute myeloid leukemia in remission (HCC),Oral ulcer 10 mL swish for 2 minutes and then spit, 4 times a day. 240 mL 1 06/19/2023 Active Cefpodoxime Proxetil 200 MG Oral TabletIndications:A cute myeloid leukemia in remission (HCC) Take 1 Tablet by mouth in the morning and 1 Tablet before bedtime. 180 Tablet 1 06/23/2023 Active Acyclovir 400 MG Oral Tablet (Zovirax)Indication s:Acute myeloid leukemia in remission (HCC) Take 1 Tablet by mouth in the morning and 1 Tablet before bedtime. 180 Tablet 1 06/23/2023 Active Nystatin 135182 UNIT/ML Mouth/Throat Suspension Swish and swallow 5 mL in the morning and 5 mL before bedtime. 1000 mL 1 06/24/2023 Active Hospital, Clinic, or Other Facility Administered Medication [...] as of this encounter (statuses as of 06/25/2023) Active Problems Problem Noted Date Diagnosed Date [...] below 70 01/01/2012 Anticoagulation management encounter 09/05/2010 alf current use of anticoagulant therapy 0 09/05/2010 [...] as of this encounter (statuses as of 06/25/2023) Resolved Problems Problem Noted Date Diagnosed Date [...] as of this encounter (statuses as of 06/25/2023) Immunizations Name Administration Dates Next Due COVID-19 [...] Split, I IV3, With Preserve, Inj 04/13/2015,04/06/2014,04/24/2013,04/10,05/28/2011,05/10/2010,05/04/2009 ,05/12/2008,05/18/2007,06/11/2006,11/0 08/2004,08/13/2004,06/01/2003, 9,05/17/1998,05/31/1997 Seasonal Influenza, Trivalen t, High Dose, No Preserve, IM 04/23/2019 TDAP (age 11 and older)(Adacel) 04/09/2011 Tetanus Toxid Adsorbed 03/21/2000 Varicella Zoster Vaccine (Adult) 04/13/2014 Zoster Vaccine [...] on file documented as of this encounter Last Filed Vital Signs Vital Sign Reading Time Taken Comments Blood Pressure - - Pulse - - Temperature 36 C (96.8 F) 06/24/2023 1:13 PM EST Respiratory Rate - - Oxygen Saturation - - Inhaled Oxygen Concentration - - Weight 94.4 kg (208 lb 1.6 oz) 06/24/2023 1:13 P M EST Height 182.9 cm (6' 0.01") 06/24/2023 1:13 PM ES T Body Mass Index 28.22 06/24/2023 1:13 PM EST documented in this encounter Functional Status Functional Status Response [...] No 06/05/2022 documented as of this encounter Progress Notes * Anup Liao PA-C - 06/24/2023 1:27 PM EST Nursing Notes: Holly Gaitan LPN 06/24/23 1316 Signed Chief Complaint Patient presents with NEW PATIENT Mouth sore Abdias Osei is a 68 year old male who presents today for a mouth sore. No other concerns voiced. History of Present Illness This 68 year old male is seen at the request of Anthony Rico III, MD for the initial evaluation of oral lesion. The patient is here with his today. The patient is currently being treated for AML. He follows with Dr. Killian. Over the past few months, he has noticed gradually progressive tongue lesion on the right side of the tongue. It has been growing in size and is now bleeding. He has tried decadron rinses and magic swizzle without benefit. He has had difficulty with eating due to pain and has lost about 10 pounds since this issue started. He denied dysphagia, odynophagia, hemoptysis, hoarseness, or dyspnea. There is no smoking history ortobacco use. Medical History Patient Active Problem List Diagnosis Code HTN, goal below 140/90 I10 HX-MALIG SKIN MELANOMA,chest 03/22/00 Z85.820 ADVANCE DIRECTIVE INFORMATION Persistent atrial fibrillation (HCC) I48.19 Type 2 diabetes mellitus with hemoglobin A1c goal of less than 7.0% (HCC) E11.9 Type 2 diabetes mellitus with hemoglobin A1c goal of less than 7.0% (HCC) E11.9 Anticoagulation management encounter Z51.81, Z79.01 alf current use of anticoagulant therapy Z79.01 Family history of cardiovascular disease Z82.49 Dyslipidemia, goal LDL below 70 E78.5 BPH without obstruction/lower urinary tract symptoms N40.0 Enlargement of aortic root (HCC) I77.89 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 Encounter for antineoplastic chemotherapy Z51.11 Drug-induced nausea and vomiting R11.2, T50.905A Functional diarrhea K59.1 Febrile neutropenia D70.9, R50.81 Pancytopenia due to chemotherapy (HCC) D61.810 Bacteremia R78.81 Chemotherapy induced nausea and vomiting R11.2, T45.1X5A Chronic diastolic heart failure (HCC) I50.32 History of atrial fibrillation Z86.79 Gastroesophageal reflux disease without esophagitis K21.9 COVID-19 U07.1 Bradycardia R00.1 AML (acute myeloid leukemia) in relapse (HCC) C92.02 Thrombocytopenia (HCC) D69.6 Encounter for central line care Z45.2 Past Medical History: Diagnosis Date Atrial fibrillation (HCC) DM type 2, goal A1c below 7 HTN, goal to be determined Malignant melanoma of trunk (HCC) Past Surgical History: Procedure Laterality Date BONE MARROW BIOPSY Left 02/19/2022 BONE MARROW BIOPSY (IES) performed by Fabián Del Cid DO at OR [facility] BONE MARROW BIOPSY Left 07/10/2022 BONE MARROW BIOPSY (IES) performed by Fabián Del Cid DO at OR [facility] COLONOSCOPY, DIAGNOSTIC (RECTUM) 05/04/2015 adenomatous polyp, diverticulosis, repeat 5 yrs/COLONOSCOPY FLEXIBLE PROXIMAL DIAGNOSTIC performed by Michelle Dumont DO at ENDOSCOPY [facility] CYSTOSCOPY 10/10/2010 TURBT, negative for in situ or invasive carcinoma CYSTOSCOPY 02/02/2013 DIABETIC EYE EXAM 05/10/2013 EXCISE BENIGN LESION, TRUNK, ARM, LEG, 3.1 - 4.0 CM 08/04/1999 [facility] excison of melanoma on chest 1999 Dr. Alarcon [facility] ACC DEV;5 YRS/OLDER Right 11/23/2021 INSERT TUNNELED CENTRAL VENOUS ACCESS WITH SUBQ PORT performed by Tae Porras DO at OR [facility] ACC DEV;5 YRS/OLDER Right 12/26/2022 INSERT TUNNELED CENTRAL VENOUS ACCESS WITH SUBQ PORT performed by Fabián Del Cid DO at OR [facility] IR VENOUS ACCESS MEDIPORT 08/07/2022 PROCEDURE - GENERAL 05/14/[address] Bladimir Hart REMOVE FINGER LESION Right 10/29/2016 Right middle finger, excision mucous cyst performed by Wilfrid Phelps MD at OR [facility] Family History Problem Relation Age of Onset Diabetes Father Hypertension Father Heart Disorder Father CHF @76 Diabetes Sister Cancer Grandmother (Maternal) colon-@76 Other (Other) Grandmother (Maternal) denies any family history of skin diseases or skin cancer Heart Disorder Mother a fib Social History Tobacco Use Smoking status: Former Packs/day: 0.25 Years: 10.00 Additional pack years: 0.00 Total pack years: 2.50 Types: Cigarettes Quit date: 08/13/1987 Years since quittin.8 Smokeless tobacco: Never Substance Use Topics Alcohol use: Not Currently Comment: occasional Vaping/E-Cigarette Use Vaping/E-Cigarette Use Never User Vaping/E-Cigarette Substances Nicotine No Other No Flavoring No THC No Cannabidiol (CBD) No Vaping/E-Cigarette Devices Disposable No Pre-filled or Refillable Cartridge No Refillable Tank No Pre-filled Pod No Medications Current Outpatient Medications Medication Sig Dispense Refill MULTIVITAMIN/MINERAL FORMULA TABS OR 1 TABLET DAILY 30 0 OneTouch UltraSoft Lancets test once daily 100 Each 11 Losartan Potassium 100 MG Oral Tablet (Cozaar) Take 1 Tablet (100 mg) by mouth in the morning. 30 Tablet 11 Amiodarone HCl 200 MG Oral Tablet (Cordarone) One tablet by mouth daily 30 Tablet 11 Eplerenone 25 MG Oral Tablet (Inspra) Take 1 Tablet by mouth in the morning. 30 Tablet 11 Tadalafil 5 MG Oral Tablet (Cialis) Take 1 Tablet by mouth in the morning. 90 Tablet 3 Rosuvastatin Calcium 10 MG Oral Tablet (Crestor) Take 1 Tablet by mouth in the morning. 90 Tablet 3 OneTouch Verio In Vitro Strip (Glucose Blood) Once daily E11.9 100 Strip 11 Escitalopram Oxalate 10 MG Oral Tablet (Lexapro) 1/2 daily x 8 then 1 daily 30 Tablet 5 Glucose Blood In Vitro Strip OneTouch Ultra Mini test strips. Use once daily. E11.9 100 Strip 11 Ondansetron HCl 4 MG Oral Tablet Take 1 Tablet by mouth every 6 hours as needed for Nausea. 30 Tablet 3 Cresemba 186 MG Oral Capsule (Isavuconazonium Sulfate) Take 2 Capsules by mouth in the morning. 70 Capsule 6 Lidocaine-Prilocaine 2.5-2.5 % External Cream (Emla) APPLY TO SKIN OVER MEDIPORT & COVER 1HR PRIOR TO ACCESSING. 30 g 1 Apixaban 5 MG Oral Tablet (Eliquis) Finasteride 5 MG Oral Tablet (Proscar) Take 1 Tablet by mouth every night at bedtime. 90 Tablet 3 Potassium Chloride Gloria ER 10 MEQ Oral Tablet Extended Release Take 1 Tablet by mouth in the morning. 30 Tablet 11 metFORMIN HCl ER 500 MG Oral Tablet Extended Release 24 Hour Take 2 Tablets by mouth in the morningand 2 Tablets before bedtime. 360 Tablet 0 Furosemide 40 MG Oral Tablet (Lasix) Take 1 Tablet by mouth in the morning. 30 Tablet 11 amLODIPine Besylate 2.5 MG Oral Tablet (Norvasc) Take 1 Tablet by mouth in the morning. 30 Tablet 5 Omeprazole 20 MG Oral Capsule Delayed Release (PriLOSEC) Take 1 Capsule by mouth in the morning. 1 hour before the first meal of the day. 90 Capsule 3 Tamsulosin HCl 0.4 MG Oral Capsule (Flomax) Take 2 Capsules by mouth in the morning. 180 Capsule 3 Magic Swizzle (Qloqcwkwq-Focjfwtr-Quyzyz) oral solution Swish and spit 15 mL in the morning and 15 mL before bedtime. 300 mL 1 oxyCODONE HCl 5 MG Oral Tablet (Oxy IR) Take 1 Tablet by mouth every 8 hours as needed for Pain, Moderate. 30 Tablet 0 dexAMETHasone 0.5 MG/5ML Oral Solution (Decadron) 10 mL swish for 2 minutes and then spit, 4 times a day. 240 mL 1 Cefpodoxime Proxetil 200 MG Oral Tablet Take 1 Tablet by mouth in the morning and 1 Tablet before bedtime. 180 Tablet 1 Acyclovir 400 MG Oral Tablet (Zovirax) Take 1 Tablet by mouth in the morning and 1 Tablet before bedtime. 180 Tablet 1 Current Facility-Administered Medications Medication Dose Route Frequency Provider Last Rate Last Admin Albuterol Sulfate (Proventil) (2.5 MG/3ML) 0.083% inhalation solution 2.5 mg 2.5 mg Nebulizer PRN Anthony Rico III, MD Albuterol Sulfate (Proventil) (5 MG/ML) 0.5% *conc* inhalation solution 2.5 mg 2.5 mg Nebulizer PRAnthony Mccain III, MD Allergies Review of patient's allergies indicates: Allergen Reactions Nitrofurantoin Monohyd Macro Other (Please comment) "Flu-like symptoms, Headache, Fever, Red dots on skin-on legs mainly" Happened during end of 10 daycourse. Bee Venom Other reaction(s): SWELLING Review of Systems Negative for constitutional, heart, lung, liver, kidney, digestive, hematologic, neurologic, rheumatologic, or endocrine complaints except as per history of present illness and past medical history Physical Exam Temp 36 C (96.8 F) (Temporal Artery) | Ht 1.829 m (6' 0.01") | Wt 94.4 kg (208 lb 1.6 oz) | BMI28.22 kg/m | BSA 2.19 m General: This is a healthy appearing male who appears his stated age. The patient is alert and appropriately verbally conversant without hoarseness. Face: The face was inspected and no cutaneous masses or lesions were visualized. There was no erythema or edema noted. Facial movement was symmetric without weakness. No skin lesions were detected. Eyes: Extra-ocular muscle function was intact. No nystagmus was observed. Pupils were equal. Ears: Examination of the ears revealed that the auricles were normally formed with no lesions. The right external auditory canal was WNL. The right TM was WNL. The right middle ear space was WNL. Theleft external auditory canal was WNL. The left TM was WNL. The left middle ear space was WNL Cranial Nerves: grossly intact. Nose: Septum nonobstructing, turbinates normal, no masses, polyps, or mucopus. Oral Cavity: Examination of the oral cavity revealed no mass lesions nor infection. The palate was noted to be intact without evidence of clefting. The tongue exhibited normal mobility. The palpated portion of the tongue base was soft. +1.5 cm right anterolateral ulcerated tongue lesion with white d iscoloration and blood tinged drainage noted. Culture was obtained. The lips were free of lesion. Gums were free of inflammation. Dentition: Unremarkable Oropharynx: The oral pharynx was free of mass lesion or mucosal abnormality. The palate was noted to be without lesion. The uvula was normal appearing with no deviation or lesions. The tonsils were unremarkable. Neck: Visualization and palpation of the neck revealed no mass lesions, no thyromegaly or thyroid masses. No skin lesions or inflammatory processes were detected. The cervical musculature was normal to palpation. The parotid and submandibular glands were normal to palpation. Lymphatics (cervical): There were no palpable lymph nodes in the posterior triangle, submandibular triangle, jugulodigastric region, or central neck. Lungs: Breathing quietly. No use of accessory muscles. Heart: Regular rate. No JVD. Procedure: Due to limitations of a mirror exam and need for comprehensive evaluation of the upper airway, fiberoptic examination of the upper airway was performed. The nose was first topically decongested with topical oxymetazoline 0.05% spray and topically anesthetized with topical Lidocaine 4% spray. The nasal mucosa was found to be WNL. The septum was midline without perforation or ulcerations. Turbinates were not hypertrophied. Middle meatus was without polyps, masses, or pus. Nasopharynx was visualized and was without masses, polyps, or lesions. Eustachian tube orifice was WNL with no hypertrophy of the mucosa in the fossa of Rosenmuller. Tongue base was WNL. Vocal cord mobility and appearance was normal without paralysis or paresis. There was no significant edema or erythema of the larynx. Hypopharyngeal exam showed that there was no pooling of secretions in the hypopharynx and no mass effect. The patient tolerated the procedure well. Patient was directed to refrain from eating or drinking for 30-45 minutes due to anesthesia of the pharynx and possible interference with swallowing including the possibility of aspiration. Assessment and Plan: Tongue discoloration (Primary) - CULTURE,FUNGUS,NON-DERM; Future; Expected date: 06/24/2023 Tongue lesion Other orders - Nystatin 306806 UNIT/ML Mouth/Throat Suspension; Swish and swallow 5 mL in the morning and 5 mL before bedtime. Plan: Findings and recommendations were discussed with the patient. Pertinent provider notes, labs,and imaging were reviewed. Will treat with nystatin swish and swallow BID x 14 days. Stop decadron rinses. Continue with magic swizzle as needed for pain. Follow-up with Dr. Cummings in about two weeks and if lesion is still present at that time can discuss biopsy. Anup Liao PA-C 06/24/2023 2:19 PM documented in this encounter Nursing Notes * Holly Gaitan LPN - 06/24/2023 1:15 PM EST Chief Complaint Patient presents with NEW PATIENT Mouth sore Abdias Osei is a 68 year old male who presents today for a mouth sore. No other concerns voiced. documented in this encounter Plan of Treatment Upcoming Encounters Date Type Department Care Team (Mario Contact Info) Description 06/30/2023 8:30 AM EST Laboratory Laboratory [facility] [place] [address] [place] [phone] [place], Lab Scenery [address] [place] [address] 06/30/2023 9:00 AM EST Nurse Only Hematology/Oncology [facility] [place] [address] [place] [address] [place], Nurse Hem Onc Scenery [address] [place] [address] 07/03/2023 8:30 AM EST Laboratory Laboratory [facility] [place] [address] [place] [address] [place], Lab Scenery [address] [place] [address] 07/03/2023 9:00 AM EST Nurse Only Hematology/Oncology Scenery [facility] [address] [place] [address] [place], Nurse Hem Onc Scenery [address] [place] [address] 07/07/2023 8:30 AM EST Laboratory Laboratory [facility] [place] [address] [place] [address] [place], Lab Scenery [address] [place] [address] 07/07/2023 9:00 AM EST Nurse Only Hematology/Oncology Scenery [place] [address] [place] [address] Park, Nurse Hem Onc Scenery [address] [place] [address] 07/10/2023 8:30 AM EST Laboratory Laboratory Scenery [facility] [address] [place] [phone] [place], Lab Scenery [address] [place], [place] [address] 07/10/2023 9:00 AM EST Nurse Only Hematology/Oncology Scenery [place] [address] [place], [place] [address] [place], Nurse Hem Onc Scenery [address] [place], [place] [address] 07/10/2023 11:00 AM EST Office Visit Otolaryngology [facility] [address] [place] [address] Wendi Cummings MD [address] [place] [address] 07/14/2023 8:30 AM EST Laboratory Laboratory Scenery [facility] [address] [place], [place] [id number] [place], Lab Scenery [address] [place], [place] [address] 07/14/2023 9:00 AM EST Nurse Only Hematology/Oncology Scenery [place] [address] [place], [place] [address] [place], Nurse Hem Onc Scenery [address] [place] [address] 07/17/2023 8:30 AM EST Laboratory Laboratory [facility] [place] [address] [place] [phone] [place], Lab Scenery [address] [place] [address] 07/17/2023 9:00 AM EST Nurse Only Hematology/Oncology Scenery [place] [address] [place] [address] [place], Nurse Hem Onc Scenery [address] [place], [place] [address] 07/21/2023 8:30 AM EST Laboratory Laboratory Scenery [facility] [address] [place] [phone] [place], Lab Scenery [address] [place] [address] 07/21/2023 9:00 AM EST Nurse Only Hematology/Oncology Scenery [facility] [address] [place] [address] [place], Nurse Hem Onc Scenery [address] [place] [address] 07/24/2023 8:30 AM EST Laboratory Laboratory [facility] [place] [address] [place] [phone] [place], Lab Scenery [address] [place] [address] 07/24/2023 9:00 AM EST Nurse Only Hematology/Oncology Scenery [facility] [address] [place] [address] [place], Nurse Hem Onc Scenery [address] [place] [address] 07/24/2023 9:40 AM EST Office Visit Family Practice [facility] [address] [place] [address] Jacky III, Anthony Moctezuma MD [address] [place] [address] 07/29/2023 8:30 AM EST Laboratory Laboratory [facility] [address] [place] [phone] [place], Lab Scenery [address] [place] [address] 07/29/2023 9:00 AM EST Nurse Only Hematology/Oncology [facility] [address] [place] [address] [place], Nurse Hem Onc Scenery [address] [place] [address] 07/31/2023 8:30 AM EST Laboratory Laboratory Scenery [facility] [address] [place] [phone] [place], Lab Scenery [address] [place] [address] 07/31/2023 9:00 AM EST Nurse Only Hematology/Oncology Scenery [facility] [address] [place] [address] [place], Nurse Hem Onc Scenery [address] [place] [address] 08/05/2023 8:30 AM EST Laboratory Laboratory Scenery [facility] [address] [place] [phone] [place], Lab Scenery [address] [place] [address] 08/05/2023 9:00 AM EST Nurse Only Hematology/Oncology Scenery [facility] [address] [place] [address] [place], Nurse Hem Onc Scenery [address] [place] [address] 08/07/2023 8:30 AM EST Laboratory Laboratory Scenery [facility] [address] [place] [phone] [place], Lab Scenery [address] [place] [address] 08/07/2023 9:00 AM EST Nurse Only Hematology/Oncology Scenery [facility] [address] [place] [address] [place], Nurse Hem Onc Scenery [address] [place] [address] 08/11/2023 8:30 AM EST Laboratory Laboratory Scenery [facility] [address] [place] [phone] [place], Lab Scenery [address] [place] [address] 08/11/2023 9:00 AM EST Nurse Only Hematology/Oncology Scenery [facility] [address] [place] [address] Park, Nurse Hem Onc Scenery [address] [place] [address] 08/14/2023 8:30 AM EST Laboratory Laboratory Scenery [facility] [address] [place] [phone] [place], Lab Scenery [address] [place] [address] 08/14/2023 9:00 AM EST Nurse Only Hematology/Oncology Scenery [facility] [address] [place], [place] [address] [place], Nurse Hem Onc Scenery [address] [place], [place] [address] 08/15/2023 11:00 AM EST Office Visit Cardiology, [facility] [address] [facility] [facility] [address] Katy García CRNP [facility] [address] 08/18/2023 8:30 AM EST Laboratory Laboratory [facility] [address] [place] [phone] Park, Lab Scenery [address] [place] [address] 08/18/2023 9:00 AM EST Nurse Only Hematology/Oncology [facility] [address] [place] [address] Park, Nurse Hem Onc Scenery [address] [place] [address] 08/21/2023 8:30 AM EST Laboratory Laboratory [facility] [address] [place], [place] [phone] Park, Lab Scenery [address] [place], [place] [address] 08/21/2023 9:00 AM EST Nurse Only Hematology/Oncology [facility] [place] [address] [place] [address] Park, Nurse Hem Onc Scenery [address] [place] [address] 08/25/2023 8:30 AM EST Laboratory Laboratory [facility] [address] [place], [place] [phone] Park, Lab Scenery [address] [place], [place] [address] 08/25/2023 9:00 AM EST Nurse Only Hematology/Oncology [facility] [address] [place] [address] Park, Nurse Hem Onc Scenery [address] [place], [place] [address] 08/29/2023 9:15 AM EST Office Visit Hematology/Oncology [facility] [address] [place], [place] [address] [place] Killian MD [address] [place], [place] [address] 10/03/2023 10:30 AM EST Office Visit Urology, [facility] 132 [facility] [place] [address] Kd Dickens MD 27 [facility] [address] [place] [address] 03/18/2024 11:00 AM EDT Office Visit Dermatology [facility] [address] [place] [address] Erica Rashid MD [address] [facility] [address] [place], [place] [address] Pending Results Name Type Priority Associated Diagnoses Date /Time CULTURE,FUNGUS,NON-DERM Lab Routine Tongue discoloration 06/25/2023 11:25 AM EST Scheduled Orders Name Type Priority Associated Diagnoses Orde r Schedule CULTURE,FUNGUS,NON-JT M Lab Routine Tongue discoloration Expected: 06/24/2023, Expires: 06/24/2024 Health Maintenance Due Date Last Done Comments Diabetic Eye Exam 09/14/2019 09/14/2018, , 07/07/2017, Additional history exists DTaP,Tdap,and Td Vaccines (2 - Td or Tdap) 04/09/2021 04/09/2011 COVID-19 Vaccine ( - 2022- season) 2023 06/19/2021, 10/24/2020, 10/03/2020 Influenza Vaccine [...] this encounter Medical Devices Implanted Type Area Dry Mill Operator Device Identifier Shelf Expiration Date Model / Serial / Lot Port Implant W/8f Poly Cath - [id number] Implanted:Qty : 1 on 11/23/2021 by Tae Porras DO at OR [facility] Right: Chest CR BARD : PERIPHERAL VASCULAR [id number] 09/03/2022 [id number] / / [id number] Port Implant W/8f Poly Cath - [id number] Implanted:Qty : 1 on 12/26/2022 by Fabián Del Cid DO at OR [facility] Right: Chest CR BARD : PERIPHERAL VASCULAR [id number] 04/03/2024 [id number] / / [id number] documented as of this encounter Visit Diagnoses Diagnosis Tongue discoloration- Primary Other specified conditions of the tongue Tongue lesion Other specified conditions of the tongue documented in this encounter Advance Directives Documents on File Type Date Recorded Patient Shop Tech Expl anation Power of Equipment Cleaner 06/06/2022 POWER OF A TTORNEY Latest Code [...] the patient have Health Care Power of Equipment Cleaner? No Full Code 03/12/2022 5:18 PM 03/15/2022 7:16 PM This o rder reflects the patients wishes and were consensually agreed upon. Question Answer Comments Discussion of Advance Directives occurred with: Patient Does the patient have a Living Will? No Does the patient have Health Care Power of Equipment Cleaner? No Full Code 12/04/2021 5:18 PM 01/22/2022 8:17 PM This o rder reflects the patients wishes and were consensually agreed upon. Question Answer Comments Discussion of Advance Directives occurred with: Patient Does the patient have a Living Will? No Does the patient have Health Care Power of Equipment Cleaner? No Care Teams Chemists Relationship Specialty Start Date End Date Anthony Rico III, MD [address] [place] [address] PCP - General 03/18/1996 documented as of this encounter
--- OUTSIDE RECORDS SUMMARY | 2023-06-29 11:02 | External Medical Summary | Summary of Care ---
Author Name Unknown Organization [facility] Address [address] [place] [address] Phone [phone] Care Team Providers Care Staffing Operations Manager Name Role Phone Jacky THOMAS MD, Anthony Moctezuma Primary Care Provider [phone] Reason for Referral * Evaluate & Treat - Unlimited Visits (Within 3 days (urgent)) - Pending Review Specialty Diagnoses / Procedures Referred By Gurmeet schreiber Referred To Contact Otolaryngology Diagnoses Oral ulcer Acute myeloid leukemia in remission (HCC) Berlin Killian MD 200 [facility] [place] [address] Referral ID Status Reason Start Date Expiration Date Visits Requested Visits Authorized [id number] Pending Review Specialty Services Required [phone] Question Answer Referral Priority Within 3 days (urgent) Where should this appointment be scheduled? [facility] Reason for Referral Thyroid/Parathyroid/Oral Lesions/Head/Neck/Cancer Conditions Specific Condition: Head/Neck/Oral Lesion - mouth sore Comments Patient with AML, mouth sore noted on right side of tongue. Reports this is very painful, difficulty eating/ drinking, has lost >10 lbs in the past month due to not being able to eat/ drink. Requesting ENT referral for recommendations. Reason for Visit * Reason Onset Date Comments Referral 06/23/2023 ENT Encounter Details Date Type Department Care Team ([facility] st Contact Info) Description 06/23/2023 Telephone Hematology/Oncology Treatment, [place] [address] [place] [address] [place] Killian MD 200 [facility], [place] [address] Referral (ENT) Allergies Active Allergy Reactions Criticality Noted Date [...] One tablet by mouth daily 30 Tablet 09/16/2022 Active Eplerenone 25 MG Oral Tablet [...] for Nausea. 30 Tablet 3 11/22/2022 Active Cefpodoxime Proxetil 200 MG Oral Tablet Take 1 Tablet by mouth in the morning and 1 Tablet before bedtime. 60 Tablet 6 11/22/2022 Active Cresemba 186 MG Oral Capsule [...] the day. 90 Capsule 3 05/22/2023 Active Acyclovir 400 MG Oral Tablet (Zovirax)Indication s:Acute myeloid leukemia in remission (HCC) Take 1 Tablet by mouth in the morning and 1 Tablet before bedtime. 60 Tablet 5 06/02/2023 Active Tamsulosin HCl 0.4 MG Oral Capsule [...] a day. 240 mL 1 06/19/2023 Active Hospital, Clinic, or Other Facility Administered [...] below 70 01/01/2012 Anticoagulation management encounter 09/05/2010 longterm current use of anticoagulant therapy 0 09/05/2010 [...] encounter Miscellaneous Notes * Telephone Encounter - Ann Disla LPN - 06/23/2023 1:17 PM EST Yaquelin offered 06/24/2023 at 120. Scheduled. * Telephone Encounter - Stacy Manuel - 06/23/2023 11:31 AM EST Called pt to offer appt with Anup Liao for tomorrow. LMOM for pt to return call. Stacy Manuel * Telephone Encounter - Anup Liao PA-C - 06/23/2023 11:19 AM EST I have openings tomorrow or Friday * Telephone Encounter - Ann Disla LPN - 06/23/2023 11:07 AM EST Patient is being treated for acute myeloid leukemia with Dr. Killian. * Telephone Encounter - Yaquelin Hickman OSA - 06/23/2023 10:49 AM EST Next available or sooner? Yaquelin * Telephone Encounter - Genie Garcia RN - 06/23/2023 10:39 AM EST Patient with mouth sore on right side of tongue for about 1 month. Patient reports this is very painful, having difficulty eating/ drinking. Has tried baking soda and salt water rinse, magic swizzle.Tried dexamethasone rinse twice but this was too painful so had to stop. Reports he has lost more than 10 lbs in the past month. Reviewed with Dr Killian- would like ENT referral placed. ENT: can you please follow up with patient for appt? Thanks! documented in this encounter Plan of Treatment Upcoming Encounters Date Type Department Care Team (Late st Contact Info) Description 06/24/2023 1:20 PM EST Office Visit Otolaryngology, [facility] [address] [place] [address] Anup Liao PA-C [address] [place] [address] 06/30/2023 8:30 AM EST Laboratory Laboratory Scenery [facility] [address] [place] [address] Park, Lab Scenery [address] [place] [address] 06/30/2023 9:00 AM EST Nurse Only Hematology/Oncology [facility] [address] [place] [address] Park, Nurse Hem Onc Scenery [address] [place] [address] 07/03/2023 8:30 AM EST Laboratory Laboratory Scenery [facility] [address] [place] [address] Park, Lab Scenery [address] [place] [address] 07/03/2023 9:00 AM EST Nurse Only Hematology/Oncology [facility] [address] [place] [address] Park, Nurse Hem Onc Scenery [address] [place] [address] 07/07/2023 8:30 AM EST Laboratory Laboratory Scenery [facility] [address] [place] [phone] Park, Lab Scenery [address] [place] [address] 07/07/2023 9:00 AM EST Nurse Only Hematology/Oncology [facility] [address] [place] [address] Park, Nurse Hem Onc Scenery [address] [place] [address] 07/10/2023 8:30 AM EST Laboratory Laboratory Scenery [facility] [address] [place] [address] Park, Lab Scenery [address] [place] [address] 07/10/2023 9:00 AM EST Nurse Only Hematology/Oncology Scen[facility] [address] [place] [address] Park, Nurse Hem Onc Scenery [address] [place] [address] 07/14/2023 8:30 AM EST Laboratory Laboratory Scenery [facility] [address] [place] [phone] Park, Lab Scenery [address] [place] [address] 07/14/2023 9:00 AM EST Nurse Only Hematology/Oncology Sc[facility] [address] [place] [address] Park, Nurse Hem Onc Scenery [address] [place] [address] 07/17/2023 8:30 AM EST Laboratory Laboratory Scenery [facility] [address] [place] [phone] Park, Lab Scenery [address] [place] [address] 07/17/2023 9:00 AM EST Nurse Only Hematology/Oncology Scenery [facility] [address] [place] [address] Park, Nurse Hem Onc Scenery [address] [place] [address] 07/21/2023 8:30 AM EST Laboratory Laboratory Scenery [facility] [address] [place] [phone] Park, Lab Scenery [address] [place] [address] 07/21/2023 9:00 AM EST Nurse Only Hematology/Oncology [facility] [address] [place] [address] Park, Nurse Hem Onc Scenery [address] [place] [address] 07/24/2023 8:30 AM EST Laboratory Laboratory [facility] [address] [place] [phone] Park, Lab Scenery [address] [place] [address] 07/24/2023 9:00 AM EST Nurse Only Hematology/Oncology Scenery [facility] [address] [place] [address] Park, Nurse Hem Onc Scenery [address] [place] [address] 07/24/2023 9:40 AM EST Office Visit Family Practice [facility] [address] [place] [address] [place] Anthony THOMAS MD [address] [place] [address] 07/29/2023 8:30 AM EST Laboratory Laboratory [facility] [address] [place] [phone] Park, Lab Scenery [address] [place] [address] 07/29/2023 9:00 AM EST Nurse Only Hematology/Oncology Scenery [facility] [address] [place] [address] Park, Nurse Hem Onc Scenery [address] [place] [address] 07/31/2023 8:30 AM EST Laboratory Laboratory Scenery [facility] [address] [place] [phone] Park, Lab Scenery [address] [place] [address] 07/31/2023 9:00 AM EST Nurse Only Hematology/Oncology [facility] [address] [place] [address] Park, Nurse Hem Onc Scenery [address] [place] [address] 08/05/2023 8:30 AM EST Laboratory Laboratory Scenery [facility] [address] [place] [address] Park, Lab Scenery [address] [place] [address] 08/05/2023 9:00 AM EST Nurse Only Hematology/Oncology Sc[facility] [address] [place] [address] Park, Nurse Hem Onc Scenery [address] [place] [address] 08/07/2023 8:30 AM EST Laboratory Laboratory Scenery [facility] [address] [place] [phone] Park, Lab Scenery [address] [place] [address] 08/07/2023 9:00 AM EST Nurse Only Hematology/Oncology [facility]ery [facility] [address] [place] [address] Park, Nurse Hem Onc Scenery [address] [place] [address] 08/11/2023 8:30 AM EST Laboratory Laboratory Scenery [facility] [address] [place] [phone] Park, Lab Scenery [address] [place] [address] 08/11/2023 9:00 AM EST Nurse Only Hematology/Oncology [facility] [address] [place] [address] Park, Nurse Hem Onc Scenery [address] [place] [address] 08/14/2023 8:30 AM EST Laboratory Laboratory Sc[facility]ery [facility] [address] [place] [phone] Park, Lab Scenery [address] [place] [address] 08/14/2023 9:00 AM EST Nurse Only Hematology/Oncology [facility]ery [facility] [address] [place] [address] Park, Nurse Hem Onc Scenery [address] [place], [place] [address] 08/15/2023 11:00 AM EST Office Visit [facility], [facility] [address] Katy Garc[facility] CRNP [facility] [address] 08/18/2023 8:30 AM EST Laboratory Laboratory Sc[facility]ery [facility] [address] [place] [address] Park, Lab Scenery [address] [place] [address] 08/18/2023 9:00 AM EST Nurse Only Hematology/Oncology Sc[facility]ery [facility] [address] [place] [address] Park, Nurse Hem Onc Scenery [address] [place] [address] 08/21/2023 8:30 AM EST Laboratory Laboratory [facility] [address] [place], [place] [phone] Park, Lab Scenery [address] [place], [place] [address] 08/21/2023 9:00 AM EST Nurse Only Hematology/Oncology [facility] [address] [place], [place] [address] Park, Nurse Hem Onc Scenery [address] [place], [place] [address] 08/25/2023 8:30 AM EST Laboratory Laboratory [facility] [place] [address] [place], [place] [phone] Park, Lab Scenery [address] [facility] [place], [place] [address] 08/25/2023 9:00 AM EST Nurse Only Hematology/Oncology [facility] [address] [place], [place] [address] Park, Nurse Hem Onc Scenery [address] [place] [address] 08/29/2023 9:15 AM EST Office Visit Hematology/Oncology [facility] [address] [place], [place] [address] [place] Killian MD [address] [place] [address] 10/03/2023 10:30 AM EST Office Visit Urology, [facility] 132 [place] [address] Kd Dickens MD 27 [facility] [address] [place] [address] 03/18/2024 11:00 AM EDT Office Visit Dermatology [facility] [address] [place], [place] [address] Erica Rashid MD [address] [place] [address] [place], [place] [address] Scheduled Referrals Name Type Priority Associated Diagnoses Order Schedule OTOLARYNGOLOGY REFERRAL OP Referral Within 3 days (urgent) Oral ulcer Acute myeloid leukemia in remission (HCC) Ordered: 06/23/2023 Health Maintenance Due Date Last Done Comments Diabetic Eye Exam 09/14/2019 09/14/2018, , 07/07/2017, Additional history exists DTaP,Tdap,and Td Vaccines (2 - Td or Tdap) 04/09/2021 04/09/2011 COVID-19 Vaccine (4 - 2022- season) 2023 06/19/2021, 10/24/2020, 10/03/2020 [...] this encounter Medical Devices Implanted Type Area Sausage Stuffer Device Identifier Shelf Expiration Date Model / Serial / Lot Port Implant W/8f Poly Cath - [id number] Implanted:Qty : 1 on 11/23/2021 by Tae Porras, DO at OR [facility] Right: Chest CR BARD : PERIPHERAL VASCULAR [id number] 09/03/2022 [id number] / / [id number] Port Implant W/8f Poly Cath - [id number] Implanted:Qty : 1 on 12/26/2022 by Fabián Del Cid, DO at OR [facility] Right: Chest CR BARD : PERIPHERAL VASCULAR [id number] 04/03/2024 [id number] / / [id number] documented as of this encounter Visit Diagnoses Diagnosis Oral ulcer- Primary Other and unspecified diseases of the oral soft tissues Acute myeloid leukemia in remission (HCC) Acute myeloid leukemia in remission documented in this encounter Advance Directives Documents on File Type Date Recorded Patient Outbound Sales Advisor Expl anation Power of Restaurant Manager 06/06/2022 POWER OF A TTORNEY Latest Code [...] the patient have Health Care Power of Restaurant Manager? No Full Code 03/12/2022 5:18 PM 03/15/2022 7:16 PM This o rder reflects the patients wishes and were consensually agreed upon. Question Answer Comments Discussion of Advance Directives occurred with: Patient Does the patient have a Living Will? No Does the patient have Health Care Power of Restaurant Manager? No Full Code 12/04/2021 5:18 PM 01/22/2022 8:17 PM This o rder reflects the patients wishes and were consensually agreed upon. Question Answer Comments Discussion of Advance Directives occurred with: Patient Does the patient have a Living Will? No Does the patient have Health Care Power of Restaurant Manager? No Care Teams Staffing Operations Manager Relationship Specialty Start Date End Date Anthony Rico III, MD [address] [place] [address] PCP - General 03/18/1996 documented as of this encounter
--- OUTSIDE RECORDS SUMMARY | 2023-06-29 11:02 | External Medical Summary | Summary of Care ---
Author Name Unknown Organization [facility] Address [address] [place] [address] Phone [phone] Care Team Providers Care [employer] Technician Name Role Phone Jacky THOMAS MD, Anthony Moctezuma Primary Care Provider [phone] Reason for Visit * Reason Comments Medication Management Encounter Details Date Type Department Care Team (Late st Contact Info) Description 05/26/2023 8:30 AM EDT Pharmacy Pharmacy Hematology Oncology [facility] [address] [place] [address] [facility] [place] [facility] Hem/Onc [address], [place] [id number] 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 documented as of this encounter (statuses as of 06/27/2023) Medications Medication Sig Dispensed Refills Start Date [...] HCl 0.4 MG Oral Capsule (Flomax) Take by mouth 2 Capsules in the morning. 180 Capsule 3 04/02/2022 06/09/2023 Discontinued (Refill) Cefpodoxime Proxetil 200 MG Oral Tablet Take 1 Tablet by mouth in the morning and 1 Tablet before bedtime. 60 Tablet 6 11/22/2022 06/23/2023 Discontinued (Refill) Acyclovir 400 MG Oral Tablet (Zovirax)Indicat ions:Acute myeloid leukemia in remission (HCC) Take 1 Tablet by mouth in the morning and 1 Tablet before bedtime. 60 Tablet 5 11/25/2022 06/02/2023 Discontinued (Refill) Venetoclax 100 MG Oral Tablet (Venclexta)Indic ations:Acute myeloid leukemia in remission (HCC) Take 2 Tablets by mouth daily. 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 Will discharge from [facility]. Please refer back if change in treatment. Vilma Mcghee RPh 05/27/23 documented in this encounter Plan of Treatment Upcoming Encounters Date Type Department Care Team (Late st Contact Info) Description 06/30/2023 8:30 AM EST Laboratory Laboratory Scenery [facility] [address] [place] [phone] Park, Lab Scenery [address] [facility] [place] [address] 06/30/2023 9:00 AM EST Nurse Only Hematology/Oncology Scenery [facility] [place] [address] [place] [address] Park, Nurse Hem Onc Scenery [address] [place] [address] 07/03/2023 8:30 AM EST Laboratory Laboratory Scenery [facility] [address] [place] [address] Park, Lab Scenery [address] [facility] [place] [address] 07/03/2023 9:00 AM EST Nurse Only Hematology/Oncology Scenery [facility] [place] [address] [place] [address] Park, Nurse Hem Onc Scenery [address] [place] [address] 07/07/2023 8:30 AM EST Laboratory Laboratory Scenery [facility] [address] [place] [address] Park, Lab Scenery [address] [place] [address] 07/07/2023 9:00 AM EST Nurse Only Hematology/Oncology Scenery [facility] [address] [place] [address] Park, Nurse Hem Onc Scenery [address] [place] [address] 07/10/2023 8:30 AM EST Laboratory Laboratory [facility] [address] [place] [address] Park, Lab Scenery [address] [place] [address] 07/10/2023 9:00 AM EST Nurse Only Hematology/Oncology [facility] [address] [place] [address] Park, Nurse Hem Onc Scenery [address] [place] [address] 07/10/2023 11:00 AM EST Office Visit Otolaryngology [facility] [address] [facility] [place] [address] Wendi Cummings MD [facility] [place] [address] 07/14/2023 8:30 AM EST Laboratory Laboratory Scenery [facility] [address] [place] [address] Park, Lab Scenery [address] [place] [address] 07/14/2023 9:00 AM EST Nurse Only Hematology/Oncology Sc[facility]ery [place], [place] [address] [place] [address] Park, Nurse Hem Onc Scenery [address] [place] [address] 07/17/2023 8:30 AM EST Laboratory Laboratory Scenery [facility] [address] [place] [address] Park, Lab Scenery [address] [place] [address] 07/17/2023 9:00 AM EST Nurse Only Hematology/Oncology Scenery [facility] [address] [place] [address] Park, Nurse Hem Onc Scenery [address] [place] [address] 07/21/2023 8:30 AM EST Laboratory Laboratory Scenery [facility] [address] [place] [address] Park, Lab Scenery [address] [place] [address] 07/21/2023 9:00 AM EST Nurse Only Hematology/Oncology Scenery [facility] [address] [place] [address] Park, Nurse Hem Onc Scenery [address] [place] [address] 07/24/2023 8:30 AM EST Laboratory Laboratory Scenery [facility] [address] [place] [address] Park, Lab Scenery [address] [place] [address] 07/24/2023 9:00 AM EST Nurse Only Hematology/Oncology Scenery [facility] [address] [place] [address] Park, Nurse Hem Onc Scenery [address] [place] [address] 07/24/2023 9:40 AM EST [facility] [address] [place] [address] JackyAnthony avila III, MD [address] [place] [address] 07/29/2023 8:30 AM EST Laboratory Laboratory [facility] [place] [address] [place] [address] Park, Lab Scenery [address] [place] [address] 07/29/2023 9:00 AM EST Nurse Only Hematology/Oncology [facility] [address] [place], [place] [address] Park, Nurse Hem Onc Scenery [address] [place], [place] [address] 07/31/2023 8:30 AM EST Laboratory Laboratory [facility] [place] [address] [place] [address] Park, Lab Scenery [address] [place] [address] 07/31/2023 9:00 AM EST Nurse Only Hematology/Oncology [facility] [place] [address] [place] [address] Park, Nurse Hem Onc Scenery [address] [place] [address] 08/05/2023 8:30 AM EST Laboratory Laboratory [facility] [place] [address] [place] [address] Park, Lab Scenery [address] [place] [address] 08/05/2023 9:00 AM EST Nurse Only Hematology/Oncology [facility] [address] [place] [address] Park, Nurse Hem Onc Scenery [address] [place] [address] 08/07/2023 8:30 AM EST Laboratory Laboratory Scenery [facility] [address] [place] [address] Park, Lab Scenery [address] [place] [address] 08/07/2023 9:00 AM EST Nurse Only Hematology/Oncology Scenery [facility] [address] [place] [address] Park, Nurse Hem Onc Scenery [address] [place] [address] 08/11/2023 8:30 AM EST Laboratory Laboratory Scenery [facility] [address] [place] [address] Park, Lab Scenery [address] [place] [address] 08/11/2023 9:00 AM EST Nurse Only Hematology/Oncology Scenery [facility] [address] [place] [address] Park, Nurse Hem Onc Scenery [address] [place] [address] 08/14/2023 8:30 AM EST Laboratory Laboratory Scenery [facility] [address] [place] [address] Park, Lab Scenery [address] [place] [address] 08/14/2023 9:00 AM EST Nurse Only Hematology/Oncology Scenery [facility] [address] [place] [address] Park, Nurse Hem Onc Scenery [address] [place] [address] 08/15/2023 11:00 AM EST Office Visit Cardiology, [facility] [address] [place] [address] Katy García CRNP [address] [place] [address] 08/18/2023 8:30 AM EST Laboratory Laboratory Scenery [facility] [address] [place] [address] Park, Lab Scenery [address] [place] [address] 08/18/2023 9:00 AM EST Nurse Only Hematology/Oncology Scenery [facility] [address] [place] [address] Park, Nurse Hem Onc Scenery [address] [place], [place] [address] 08/21/2023 8:30 AM EST Laboratory Laboratory Scenery [facility] [address] [place] [address] Park, Lab Scenery [address] [place] [address] 08/21/2023 9:00 AM EST Nurse Only Hematology/Oncology Scenery [facility] [address] [place] [address] Park, Nurse Hem Onc Scenery [address] [place] [address] 08/25/2023 8:30 AM EST Laboratory Laboratory Scenery [facility] [address] [place] [address] Park, Lab Scenery [address] [place] [address] 08/25/2023 9:00 AM EST Nurse Only Hematology/Oncology Scenery [facility] [address] [place] [address] Park, Nurse Hem Onc Scenery [address] [place] [address] 08/29/2023 9:15 AM EST Office Visit Hematology/Oncology [facility] [address] [facility] [place] [address] [place] Killian MD 200 [facility] [place] [address] 10/03/2023 10:30 AM EST Office Visit Urology, [facility] 132 [facility] [place] [address] Kd Dickens MD 27 [facility] [address] [place] [address] 03/18/2024 11:00 AM EDT Office Visit Dermatology [facility] 200 [facility] [place] [address] Erica Rashid MD 200 [facility] [place] [address] Health Maintenance Due Date Last Done Comments Diabetic Eye Exam 09/14/2019 09/14/2018, , 07/07/2017, Additional history exists DTaP,Tdap,and Td Vaccines (2 - Td or Tdap) 04/09/2021 04/09/2011 COVID-19 Vaccine ( season) 2023 06/19/2021, 10/24/2020, 10/03/2020 Influenza Vaccine [...] this encounter Medical Devices Implanted Type Area Early Head Start Director Device Identifier Shelf Expiration Date Model / Serial / Lot Port Implant W/8f Poly Cath - [id number] Implanted:Qty : 1 on 11/23/2021 by Tae Porras DO at OR [facility] Right: Chest CR BARD : [employer] [id number] 09/03/2022 [id number] / / [id number] Port Implant W/8f Poly Cath - [id number] Implanted:Qty : 1 on 12/26/2022 by Fabián Del Cid DO at OR [facility] Right: Chest CR BARD : PERIPHERAL VASCULAR [id number] 04/03/2024 [id number] / / [id number] documented as of this encounter Visit Diagnoses Diagnosis 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 No Full Code 03/12/2022 5:18 PM 03/15/2022 7:16 PM This o rder reflects the patients wishes and were consensually agreed upon. Question Answer Comments Discussion of Advance Directives occurred with: Patient Does the patient have a Living Will? No Does the patient have Health Care Power of Research Compliance Specialist? No Full Code 12/04/2021 5:18 PM 01/22/2022 8:17 PM This o rder reflects the patients wishes and were consensually agreed upon. Question Answer Comments Discussion of Advance Directives occurred with: Patient Does the patient have a Living Will? No Does the patient have Health Care Power of Research Compliance Specialist? No Care Teams [employer] Technician Relationship Specialty Start Date End Date Anthony Rico III, MD [address] [facility] [place] [address] PCP - General 03/18/1996 documented as of this encounter
--- OUTSIDE RECORDS SUMMARY | 2023-06-29 11:02 | External Medical Summary ---
Author Name Unknown Address Unknown Organization [id number]:[facility] - [address] [place] [address] Laboratory Report Ordering Provider Test Date Status [id number] 06/25/2023 11:25:37 Preliminary Observation Date Value Abnormality Reference (Units) Status Bacteria identified in Specimen by Culture 06/25/2023 11:25:37 No fungus isolated to date Preliminary Fungal Smear 06/25/2023 11:25:37 No yeast or hyphae seen. Preliminary Test: Culture, Fungus, Non-D erm
Specimen Source: Tongue
Specimen Type: Swab
Specimen Date: 06/25/2023 11:25 AM
Result Date: 06/27/2023 7:43 AM
Result Status: Preliminary result
Resulting Lab: [facility]
[address]
[place] [id number]

CULTURE

No fungus isolated to date

STAIN

No yeast or hyphae seen.

null Performing Location [facility] [place] - [address] [facility] [place] [address]
--- OUTSIDE RECORDS SUMMARY | 2023-06-29 11:02 | External Medical Summary | Summary of Care ---
Author Name Unknown Organization [facility] Address [address] [place] [address] Phone [phone] Care Team Providers Care Director Of Operations Name Role Phone Jacky THOMAS MD, Anthony Moctezuma Primary Care Provider [phone] Reason for Visit * Reason Comments NEW PATIENT Mouth sore * Evaluate & Treat - Unlimited Visits (Within 3 days (urgent)) - Pending Review Specialty Diagnoses / Procedures Referred By Gurmeet schreiber Referred To Contact Otolaryngology Diagnoses Oral ulcer Acute myeloid leukemia in remission (HCC) Berlin Killian MD [address] [place] [id number] Referral ID Status Reason Start Date Expiration Date Visits Requested Visits Authorized [id number] Pending Review Specialty Services Required 3 [phone] Encounter Details Date Type Department Care Team (Late st Contact Info) Description 06/24/2023 1:20 PM EST Office Visit Otolaryngology, Zhou Carrera [address] [address] Anup Liao PA-C [address] [phone] Tongue discoloration*; Tongue lesion Allergies Active Allergy Reactions Criticality Noted Date Comments Bee Venom Low 10/07/2018 Other reaction(s): SWELLING Nitrofurantoin Monohyd Macro Other (Please comment) 02/14/2014 "Flu-like symptoms, Headache, Fever, Red dots on skin-on legs mainly" Happened during end of 10 day course. documented as of this encounter (statuses as of 06/24/2023) Medications Medication Sig Dispensed Refills Start Date [...] bedtime. 180 Tablet 1 06/23/2023 Active Nystatin 304194 UNIT/ML Mouth/Throat Suspension Swish and swallow 5 [...] as of this encounter (statuses as of 06/24/2023) Active Problems Problem Noted Date Diagnosed Date [...] below 70 01/01/2012 Anticoagulation management encounter 09/05/2010 [facility] current use of anticoagulant therapy 0 09/05/2010 [...] as of this encounter (statuses as of 06/24/2023) Resolved Problems Problem Noted Date Diagnosed Date [...] as of this encounter (statuses as of 06/24/2023) Immunizations Name Administration Dates Next Due COVID-19 [...] (HCC) E11.9 Anticoagulation management encounter Z51.81, Z79.01 [facility] current use of anticoagulant therapy Z79.01 Family [...] by Fabián Del Cid DO at OR [facility] BONE MARROW BIOPSY Left 07/10/2022 BONE MARROW BIOPSY (IES) performed by Fabián Del Cid DO at OR [facility] COLONOSCOPY, DIAGNOSTIC (RECTUM) 05/04/2015 adenomatous polyp, diverticulosis, repeat 5 yrs/COLONOSCOPY FLEXIBLE PROXIMAL DIAGNOSTIC performed by Michelle Dumont DO at ENDOSCOPY [facility] CYSTOSCOPY 10/10/2010 TURBT, negative for in situ or invasive carcinoma CYSTOSCOPY 02/02/2013 DIABETIC EYE EXAM 05/10/2013 EXCISE BENIGN LESION, TRUNK, ARM, LEG, 3.1 - 4.0 CM 08/04/1999 [facility] excison of melanoma on chest 1999 Dr. Alarcon INSER TUNN ACC DEV;5 YRS/OLDER Right 11/23/2021 INSERT TUNNELED CENTRAL VENOUS ACCESS WITH SUBQ PORT performed by Tae Porras DO at OR [facility] INSER TUNN ACC DEV;5 YRS/OLDER Right 12/26/2022 INSERT TUNNELED CENTRAL VENOUS ACCESS WITH SUBQ PORT performed by Fabián Del Cid DO at OR [facility] IR VENOUS ACCESS MEDIPORT 08/07/2022 PROCEDURE - [...] the morning. 180 Capsule 3 Magic Swizzle (Rriyllbzz-Dmzemdlf-Axfwgs) oral solution Swish and spit 15 mL [...] inhalation solution 2.5 mg 2.5 mg Nebulizer PRNPAnthony macdonald III, MD Allergies Review of patient's allergies [...] 06/24/2023 Tongue lesion Other orders - Nystatin 654151 UNIT/ML Mouth/Throat Suspension; Swish and swallow 5 [...] Description 06/30/2023 8:30 AM EST Laboratory Laboratory State Kunal Romero [address] [place] [phone] Park, Lab Scenery [address] [place] [address] 06/30/2023 9:00 AM EST Nurse Only Hematology/Oncology Scenery [facility] [address] [place] [address] Park, Nurse Hem Onc Scenery [address] [place] [address] 07/03/2023 8:30 AM EST Laboratory Laboratory Scenery [facility] [address] [place] [address] Park, Lab Scenery [address] [place] [address] 07/03/2023 9:00 AM EST Nurse Only Hematology/Oncology Scenery [facility] [address] [place] [address] Park, Nurse Hem Onc Scenery [address] [place] [address] 07/07/2023 8:30 AM EST Laboratory Laboratory [facility] [address] [place] [phone] Park, Lab Scenery [address] [place] [address] 07/07/2023 9:00 AM EST Nurse Only Hematology/Oncology Scenery [facility] [address] [place] [address] Park, Nurse Hem Onc Scenery [address] [place] [address] 07/10/2023 8:30 AM EST Laboratory Laboratory Scenery [facility] [address] [place] [address] Park, Lab Scenery [address] [place] [address] 07/10/2023 9:00 AM EST Nurse Only Hematology/Oncology Scenery [place], [place] [address] [place], [place] [address] Park, Nurse Hem Onc Scenery [address] [place], [place] [address] 07/10/2023 11:00 AM EST Office Visit Otolaryngology [facility] [address] [place] [address] Wendi Cummings MD [address] [place] [address] 07/14/2023 8:30 AM EST Laboratory Laboratory Scenery [facility] [address] [place], [place] [address] Park, Lab Scenery [address] [place], [place] [address] 07/14/2023 9:00 AM EST Nurse Only Hematology/Oncology Scenery [facility] [address] [place] [address] Park, Nurse Hem Onc Scenery [address] [place] [address] 07/17/2023 8:30 AM EST Laboratory Laboratory Scenery [facility] [address] [place] [address] Park, Lab Scenery [address] [place] [address] 07/17/2023 9:00 AM EST Nurse Only Hematology/Oncology Scenery [facility] [address] [place] [address] Park, Nurse Hem Onc Scenery [address] [place] [address] 07/21/2023 8:30 AM EST Laboratory Laboratory Scenery [facility] [address] [place] [address] Park, Lab Scenery [address] [place] [address] 07/21/2023 9:00 AM EST Nurse Only Hematology/Oncology [facility] [address] [place] [address] Park, Nurse Hem Onc Scenery [address] [place] [address] 07/24/2023 8:30 AM EST Laboratory Laboratory [facility] [address] [place] [address] Park, Lab Scenery [address] [place] [address] 07/24/2023 9:00 AM EST Nurse Only Hematology/Oncology Scenery [facility] [address] [place] [address] Park, Nurse Hem Onc Scenery [address] [place], [place] [address] 07/24/2023 9:40 AM EST Office Visit Family Practice [facility] [address] [place] [address] Irwin III, Anthony Moctezuma MD [address] [place] [address] 07/29/2023 8:30 AM EST Laboratory Laboratory [facility] [address] [place] [address] Park, Lab Scenery [address] [place] [address] 07/29/2023 9:00 AM EST Nurse Only Hematology/Oncology [facility] [address] [place] [address] Park, Nurse Hem Onc Scenery [address] [place] [address] 07/31/2023 8:30 AM EST Laboratory Laboratory [facility] [address] [place] [address] Park, Lab Scenery [address] [place] [address] 07/31/2023 9:00 AM EST Nurse Only Hematology/Oncology Scenery [facility] [address] [place] [address] Park, Nurse Hem Onc Scenery [address] [place] [address] 08/05/2023 8:30 AM EST Laboratory Laboratory Scenery [facility] [address] [place] [address] Park, Lab Scenery [address] [place] [address] 08/05/2023 9:00 AM EST Nurse Only Hematology/Oncology Scenery [facility] [address] [place] [address] Park, Nurse Hem Onc Scenery [address] [place] [address] 08/07/2023 8:30 AM EST Laboratory Laboratory Scenery [facility] [address] [place] [address] Park, Lab Scenery [address] [place] [address] 08/07/2023 9:00 AM EST Nurse Only Hematology/Oncology Scenery [facility] [address] [place] [address] Park, Nurse Hem Onc Scenery [address] [place] [address] 08/11/2023 8:30 AM EST Laboratory Laboratory Scenery [facility] [address] [place] [address] Park, Lab Scenery [address] [place] [address] 08/11/2023 9:00 AM EST Nurse Only Hematology/Oncology Scenery [facility] [address] [place], [place] [address] Park, Nurse Hem Onc Scenery [address] [place], [place] [address] 08/14/2023 8:30 AM EST Laboratory Laboratory Scenery [facility] [place] [address] [place], [place] [phone] Park, Lab Scenery [address] [facility] [place] [address] 08/14/2023 9:00 AM EST Nurse Only Hematology/Oncology Scenery [facility] [place] [address] [place], [place] [address] Park, Nurse Hem Onc Scenery [address] [place], [place] [address] 08/15/2023 11:00 AM EST Office Visit [facility] [address] Katy Garc[facility] [address] 08/18/2023 8:30 AM EST Laboratory Laboratory [facility] [place] [address] [place], [place] [phone] Park, Lab Scenery [address] [place], [place] [address] 08/18/2023 9:00 AM EST Nurse Only Hematology/Oncology Scenery [facility] [place] [address] [place], [place] [address] Park, Nurse Hem Onc Scenery [address] [place], [place] [address] 08/21/2023 8:30 AM EST Laboratory Laboratory Scenery [facility] [place] [address] [place], [place] [phone] Park, Lab Scenery [address] [place] [address] 08/21/2023 9:00 AM EST Nurse Only Hematology/Oncology [facility] [address] [place], [place] [address] Park, Nurse Hem Onc Scenery [address] [place], [place] [address] 08/25/2023 8:30 AM EST Laboratory Laboratory [facility] [address] [place], [place] [address] [place], Lab Scenery [address] [place], [place] [address] 08/25/2023 9:00 AM EST Nurse Only Hematology/Oncology [facility] [address] [place], [place] [address] Park, Nurse Hem Onc Scenery [address] [place], [place] [address] 08/29/2023 9:15 AM EST Office Visit Hematology/Oncology [facility] [address] [place], [place] [address] Berlin Killian MD [address] [place] [address] 10/03/2023 10:30 AM EST Office Visit Urology, [facility] 132 [facility] [place] [address] Kd Dickens MD 27 [facility] [address] [place] [address] [address] 03/18/2024 11:00 AM EDT Office Visit Dermatology [facility] [address] [place], [place] [address] Erica Rashid MD [address] [place] [address] Scheduled Orders Name Type Priority Associated Diagnoses [...] this encounter Medical Devices Implanted Type Area Peripheral Vascular Tech Device Identifier Shelf Expiration Date Model / Serial / Lot Port Implant W/8f Poly Cath - [id number] Implanted:Qty : 1 on 11/23/2021 by Tae Porras, DO at OR [facility] Right: Chest CR BARD : PERIPHERAL VASCULAR [id number] 09/03/2022 [id number] / / [id number] Port Implant W/8f Poly Cath - [id number] Implanted:Qty : 1 on 12/26/2022 by Fabián Del Cid, DO at OR [facility] Right: Chest CR BARD : PERIPHERAL VASCULAR [id number] 04/03/2024 [id number] / / [id number] documented as of this encounter Visit Diagnoses Diagnosis Tongue discoloration- Primary Other specified conditions of the tongue Tongue lesion Other specified conditions of the tongue documented in this encounter Advance Directives Documents on File Type Date Recorded 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 No Full Code 03/12/2022 5:18 PM 03/15/2022 7:16 PM This o rder reflects the patients wishes and were consensually agreed upon. Question Answer Comments Discussion of Advance Directives occurred with: Patient Does the patient have a Living Will? No Does the patient have Health Care Power of Maid Cleaning Cooking? No Full Code 12/04/2021 5:18 PM 01/22/2022 8:17 PM This o rder reflects the patients wishes and were consensually agreed upon. Question Answer Comments Discussion of Advance Directives occurred with: Patient Does the patient have a Living Will? No Does the patient have Health Care Power of Maid Cleaning Cooking? No Care Teams Director Of Operations Relationship Specialty Start Date End Date Anthony Rico III, MD 200 [facility] [place] [address] PCP - General 03/18/1996 documented as of this encounter
--- OUTSIDE RECORDS SUMMARY | 2023-06-29 11:03 | External Medical Summary | Summary of Care ---
Author Name Unknown Organization [facility] Address [address] [place] [address] Phone [phone] Care Team Providers Care Geospatial Intelligence Analyst Name Role Phone Jacky THOMAS MD, Anthony Moctezuma Primary Care Provider [phone] Reason for Referral * Evaluate & Treat - Unlimited Visits (Within 3 days (urgent)) - Pending Review Specialty Diagnoses / Procedures Referred By Gurmeet schreiber Referred To Contact Otolaryngology Diagnoses Oral ulcer Acute myeloid leukemia in remission (HCC) Berlin Killian MD 200 [facility] [place] [address] Referral ID Status Reason Start Date Expiration Date Visits Requested Visits Authorized [id number] Pending Review Specialty Services Required 3 999 [...] Encounter Details Date Type Department Care Team ([facility] st Contact Info) Description 06/23/2023 Telephone Hematology/Oncology Treatment, [place] [address] [place] [address] Berlin Killian MD 200 [facility], [place] [address] Referral (ENT) Allergies Active Allergy Reactions Criticality [...] below 70 01/01/2012 Anticoagulation management encounter 09/05/2010 [facility] current use of anticoagulant therapy 0 09/05/2010 [...] encounter Miscellaneous Notes * Telephone Encounter - Yaquelin Hickman OSA [...] 06/30/2023 8:30 AM EST Laboratory Laboratory Scenery [facility] [address] [place] [phone] Park, Lab Scenery [address] [place], [place] [address] 06/30/2023 9:00 AM EST Nurse Only Hematology/Oncology Scenery [facility] [place] [address] [place], [place] [address] Park, Nurse Hem Onc Scenery [address] [place], [place] [address] 07/03/2023 8:30 AM EST Laboratory Laboratory Scenery [facility] [place] [address] [place], [place] [address] Park, Lab Scenery [address] [place] [address] 07/03/2023 9:00 AM EST Nurse Only Hematology/Oncology Scenery [facility] [place] [address] [place], [place] [address] Park, Nurse Hem Onc Scenery [address] [place], [place] [address] 07/07/2023 8:30 AM EST Laboratory Laboratory [place]ery [place], [place] [address] [place] [address] Park, Lab Scenery [address] [place] [address] 07/07/2023 9:00 AM EST Nurse Only Hematology/Oncology Scenery [facility] [address] [place] [address] Park, Nurse Hem Onc Scenery [address] [place] [address] 07/10/2023 8:30 AM EST Laboratory Laboratory Scenery [facility] [address] [place] [address] Park, Lab Scenery [address] [place] [address] 07/10/2023 9:00 AM EST Nurse Only Hematology/Oncology Scenery [facility] [address] [place] [address] Park, Nurse Hem Onc Scenery [address] [place] [address] 07/14/2023 8:30 AM EST Laboratory Laboratory Scenery [facility] [address] [place] [address] Park, Lab Scenery [address] [place] [address] 07/14/2023 9:00 AM EST Nurse Only Hematology/Oncology Scenery [facility] [address] [place] [address] Park, Nurse Hem Onc Scenery [address] [place] [address] 07/17/2023 8:30 AM EST Laboratory Laboratory Scenery [facility] [address] [place] [address] Park, Lab Scenery [address] [place] [address] 07/17/2023 9:00 AM EST Nurse Only Hematology/Oncology Scenery [facility] [place] [address] [place] [address] Park, Nurse Hem Onc Scenery [address] [place], [place] [address] 07/21/2023 8:30 AM EST Laboratory Laboratory Scenery [facility] [place] [address] [place] [address] Park, Lab Scenery [address] [place] [address] 07/21/2023 9:00 AM EST Nurse Only [facility]ology[facility] [place] [address] [place], [place] [address] Park, Nurse Hem Onc Scenery [address] [place], [place] [address] 07/24/2023 8:30 AM EST Laboratory Laboratory [facility] [place] [address] [place] [address] Park, Lab Scenery [address] [facility] [place] [address] 07/24/2023 9:00 AM EST Nurse Only Hematology/Oncology [facility] [place] [address] [place] [address] Park, Nurse Hem Onc Scenery [address] [place] [address] 07/24/2023 9:40 AM EST Office Visit Family Practice [facility] [place] [address] [place] [address] Grafton III, Anthony Moctezuma MD [address] [place] [address] 07/29/2023 8:30 AM EST Laboratory Laboratory [facility] [address] [place] [address] Park, Lab Scenery [address] [place] [address] 07/29/2023 9:00 AM EST Nurse Only Hematology/Oncology Scenery [facility] [address] [place] [address] Park, Nurse Hem Onc Scenery [address] [place] [address] 07/31/2023 8:30 AM EST Laboratory Laboratory Scenery [facility] [address] [place] [address] Park, Lab Scenery [address] [place] [address] 07/31/2023 9:00 AM EST Nurse Only Hematology/Oncology Scenery [facility] [address] [place] [address] Park, Nurse Hem Onc Scenery [address] [place] [address] 08/05/2023 8:30 AM EST Laboratory Laboratory Scenery [facility] [address] [place] [address] Park, Lab Scenery [address] [place] [address] 08/05/2023 9:00 AM EST Nurse Only Hematology/Oncology Scenery [facility] [address] [place] [address] Park, Nurse Hem Onc Scenery [address] [place] [address] 08/07/2023 8:30 AM EST Laboratory Laboratory Scenery [facility] [address] [place] [address] Park, Lab Scenery [address] [place] [address] 08/07/2023 9:00 AM EST Nurse Only Hematology/Oncology Scenery [facility] [address] [place] [address] Park, Nurse Hem Onc Scenery [address] [place] [address] 08/11/2023 8:30 AM EST Laboratory Laboratory [facility] [address] [place] [phone] Park, Lab Scenery [address] [place] [address] 08/11/2023 9:00 AM EST Nurse Only Hematology/Oncology Scenery [facility] [address] [place] [address] Park, Nurse Hem Onc Scenery [address] [place], [place] [address] 08/14/2023 8:30 AM EST Laboratory Laboratory Scenery [facility] [address] [place] [address] Park, Lab Scenery [address] [place] [address] 08/14/2023 9:00 AM EST Nurse Only Hematology/Oncology [facility] [place] [address] [place] [address] Park, Nurse Hem Onc Scenery [address] [place] [address] 08/15/2023 11:00 AM EST Office Visit [facility] [address] Katy García CRNP [address] [place] [address] 08/18/2023 8:30 AM EST Laboratory Laboratory [facility] [address] [place], [place] [phone] Park, Lab Scenery [address] [place] [address] 08/18/2023 9:00 AM EST Nurse Only Hematology/Oncology Scenery [facility] [address] [place] [address] Park, Nurse Hem Onc Scenery [address] [place] [address] 08/21/2023 8:30 AM EST Laboratory Laboratory Scenery [facility] [address] [place] [address] Park, Lab Scenery [address] [place] [address] 08/21/2023 9:00 AM EST Nurse Only Hematology/Oncology Scenery [facility] [address] [place] [address] Park, Nurse Hem Onc Scenery [address] [place], [place] [address] 08/25/2023 8:30 AM EST Laboratory Laboratory [facility] [address] [place] [address] Park, Lab Scenery [address] [place] [address] 08/25/2023 9:00 AM EST Nurse Only Hematology/Oncology [facility] [place] [address] [place] [address] Park, Nurse Hem Onc Scenery [address] [place] [address] 08/29/2023 9:15 AM EST Office Visit Hematology/Oncology [facility] [address] [place] [address] Berlin Killian MD [address] [place] [address] 10/03/2023 10:30 AM EST Office Visit Urology, [facility] [address] [facility] [place] [address] Kd Dickens MD 27 [facility] [address] [place] [address] 03/18/2024 11:00 AM EDT Office Visit Dermatology [facility] 200 [facility] [place] [address] Erica Rashid MD 200 [facility] [place] [address] Scheduled Referrals Name Type Priority Associated Diagnoses Order Schedule OTOLARYNGOLOGY REFERRAL OP Referral Within 3 days (urgent) Oral ulcer Acute myeloid leukemia in remission (HCC) Ordered: 06/23/2023 Health Maintenance Due Date Last Done Comments Diabetic Eye Exam 09/14/2019 09/14/2018, , 07/07/2017, Additional history exists DTaP,Tdap,and Td Vaccines (2 - Td or Tdap) 04/09/2021 04/09/2011 COVID-19 Vaccine ( - season) 2023 06/19/2021, 10/24/2020, 10/03/2020 Influenza [...] this encounter Medical Devices Implanted Type Area Special Service Officer Device Identifier Shelf Expiration Date Model / Serial / Lot Port Implant W/8f Poly Cath - [id number] Implanted:Qty : 1 on 11/23/2021 by Tae Porras DO at OR [facility] Right: Chest CR BARD : PERIPHERAL VASCULAR [id number] 09/03/2022 [id number] / / [id number] Port Implant W/8f Poly Cath - [id number] Implanted:Qty : 1 on 12/26/2022 by Fabián Del Cid, DO at OR [facility] Right: Chest CR BARD : PERIPHERAL VASCULAR [id number] 04/03/2024 [id number] / / [id number] documented as of this encounter Visit Diagnoses Diagnosis Oral ulcer- Primary Other and unspecified diseases of the oral soft tissues Acute myeloid leukemia in remission (HCC) Acute myeloid leukemia in remission documented in this encounter Advance Directives Documents on File Type Date Recorded 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 No Full Code 03/12/2022 5:18 PM 03/15/2022 7:16 PM This o rder reflects the patients wishes and were consensually agreed upon. Question Answer Comments Discussion of Advance Directives occurred with: Patient Does the patient have a Living Will? No Does the patient have Health Care Power of Circle Beveler? No Full Code 12/04/2021 5:18 PM 01/22/2022 8:17 PM This o rder reflects the patients wishes and were consensually agreed upon. Question Answer Comments Discussion of Advance Directives occurred with: Patient Does the patient have a Living Will? No Does the patient have Health Care Power of Circle Beveler? No Care Teams Geospatial Intelligence Analyst Relationship Specialty Start Date End Date Anthony Rcio III, MD [address] [place] [address] PCP - General 03/18/1996 documented as of this encounter
--- OUTSIDE RECORDS SUMMARY | 2023-06-29 11:03 | External Medical Summary | Summary of Care ---
Author Name Unknown Organization [facility] Address [address] [place] [address] Phone [phone] Care Team Providers Care Machine Assistant Name Role Phone Jacky THOMAS MD, Anthony Moctezuma Primary Care Provider [phone] Reason for Referral * Evaluate & Treat - Unlimited Visits (Within 3 days (urgent)) - Pending Review Specialty Diagnoses / Procedures Referred By Gurmeet schreiber Referred To Contact Otolaryngology Diagnoses Oral ulcer Acute myeloid leukemia in remission (HCC) [place] Killian MD [facility] [place] [address] Referral ID Status Reason Start Date Expiration Date Visits Requested Visits Authorized [id number] Pending Review Specialty Services Required 3 999 [...] Contact Info) Description 06/23/2023 Telephone Hematology/Oncology Treatment, [place] [address] [place] [address] Berlin Killian MD 200 [facility], [place] [address] Referral (ENT) Allergies Active Allergy Reactions Criticality [...] below 70 01/01/2012 Anticoagulation management encounter 09/05/2010 prison current use of anticoagulant therapy 0 09/05/2010 [...] 06/30/2023 8:30 AM EST Laboratory Laboratory Scenery [facility] [address] [place] [phone] [place], Lab Scenery [address] [place], [place] [address] 06/30/2023 9:00 AM EST Nurse Only Hematology/Oncology Scenery [place] [address] [place], [place] [address] Park, Nurse Hem Onc Scenery [address] [place], [place] [address] 07/03/2023 8:30 AM EST Laboratory Laboratory Scenery [place] [address] [place], [place] [address] Park, Lab Scenery [address] [place] [address] 07/03/2023 9:00 AM EST Nurse Only Hematology/Oncology [place]ery [place] [address] [place], [place] [address] Park, Nurse Hem Onc Scenery [address] [place], [place] [address] 07/07/2023 8:30 AM EST Laboratory Laboratory Scenery [place], [place] [address] [place] [address] Park, Lab Scenery [address] [place] [address] 07/07/2023 9:00 AM EST Nurse Only Hematology/Oncology Scenery [facility] [address] [place] [address] Park, Nurse Hem Onc Scenery [address] [place] [address] 07/10/2023 8:30 AM EST Laboratory Laboratory Scenery [facility] [address] [place] [address] Park, Lab Scenery [address] [place] [address] 07/10/2023 9:00 AM EST Nurse Only Hematology/Oncology Scenery [facility] [address] [place] [address] Park, Nurse Hem Onc Scenery [address] [place] [address] 07/14/2023 8:30 AM EST Laboratory Laboratory Scenery [facility] [address] [place] [address] Park, Lab Scenery [address] [place] [address] 07/14/2023 9:00 AM EST Nurse Only Hematology/Oncology Scenery [facility] [address] [place] [address] Park, Nurse Hem Onc Scenery [address] [place] [address] 07/17/2023 8:30 AM EST Laboratory Laboratory Scenery [facility] [address] [place] [address] Park, Lab Scenery [address] [place] [address] 07/17/2023 9:00 AM EST Nurse Only Hematology/Oncology [place] [place] [address] [place] [address] Park, Nurse Hem Onc Scenery [address] [place], [place] [address] 07/21/2023 8:30 AM EST Laboratory Laboratory Scenery [place] [address] [place] [address] Park, Lab Scenery [address] [place] [address] 07/21/2023 9:00 AM EST Nurse Only Hematology/Oncology [facility] [place] [address] [place], [place] [address] Park, Nurse Hem Onc Scenery [address] [place], [place] [address] 07/24/2023 8:30 AM EST Laboratory Laboratory [facility] [place] [address] [place] [address] Park, Lab Scenery [address] [place] [address] 07/24/2023 9:00 AM EST Nurse Only Hematology/Oncology [facility] [place] [address] [place] [address] Park, Nurse Hem Onc Scenery [address] [place] [address] 07/24/2023 9:40 AM EST Office Visit [facility] [place] [address] [place] [address] Holt III, Anthony Moctezuma MD [address] [place] [address] 07/29/2023 8:30 AM EST Laboratory Laboratory [facility] [address] [place] [address] Park, Lab Scenery [address] [place] [address] 07/29/2023 9:00 AM EST Nurse Only Hematology/Oncology Scenery [facility] [address] [place] [address] Park, Nurse Hem Onc Scenery [address] [place] [address] 07/31/2023 8:30 AM EST Laboratory Laboratory Scenery [facility] [address] [place] [address] Park, Lab Scenery [address] [place] [address] 07/31/2023 9:00 AM EST Nurse Only Hematology/Oncology Scenery [facility] [address] [place] [address] Park, Nurse Hem Onc Scenery [address] [place] [address] 08/05/2023 8:30 AM EST Laboratory Laboratory Scenery [facility] [address] [place] [address] Park, Lab Scenery [address] [place] [address] 08/05/2023 9:00 AM EST Nurse Only Hematology/Oncology Scenery [facility] [address] [place] [address] Park, Nurse Hem Onc Scenery [address] [place] [address] 08/07/2023 8:30 AM EST Laboratory Laboratory Scenery [facility] [address] [place] [address] Park, Lab Scenery [address] [place] [address] 08/07/2023 9:00 AM EST Nurse Only Hematology/Oncology Scenery [facility] [address] [place] [address] Park, Nurse Hem Onc Scenery [address] [place] [address] 08/11/2023 8:30 AM EST Laboratory Laboratory [facility] [address] [place] [address] Park, Lab Scenery [address] [place] [address] 08/11/2023 9:00 AM EST Nurse Only Hematology/Oncology Scenery [facility] [address] [place] [address] Park, Nurse Hem Onc Scenery [address] [place], [place] [address] 08/14/2023 8:30 AM EST Laboratory Laboratory Scenery [facility] [address] [place] [address] Park, Lab Scenery [address] [place] [address] 08/14/2023 9:00 AM EST Nurse Only Hematology/Oncology [facility] [place] [address] [place] [address] Park, Nurse Hem Onc Scenery [address] [place] [address] 08/15/2023 11:00 AM EST Office Visit [facility]iology, [facility] [place] [address] Katy García CRNP [address] [place] [address] 08/18/2023 8:30 AM EST Laboratory Laboratory [facility] [address] [place], [place] [phone] Park, Lab Scenery [address] [place] [address] 08/18/2023 9:00 AM EST Nurse Only Hematology/Oncology Scenery [facility] [address] [place] [address] Park, Nurse Hem Onc Scenery [address] [place] [address] 08/21/2023 8:30 AM EST Laboratory Laboratory Scenery [facility] [address] [place] [address] Park, Lab Scenery [address] [place] [address] 08/21/2023 9:00 AM EST Nurse Only Hematology/Oncology Scenery [facility] [address] [place] [address] Park, Nurse Hem Onc Scenery [address] [place], [place] [address] 08/25/2023 8:30 AM EST Laboratory Laboratory [facility] [address] [place] [address] Park, Lab Scenery [address] [place] [address] 08/25/2023 9:00 AM EST Nurse Only Hematology/Oncology [facility] [place] [address] [place] [address] Park, Nurse Hem Onc Scenery [address] [place] [address] 08/29/2023 9:15 AM EST Office Visit Hematology/Oncology [facility] [address] [place] [address] [place] Killian MD [address] [place] [address] 10/03/2023 10:30 AM EST Office Visit Urology, [facility] [address] [facility] [place] [address] Kd Dickens MD [address] [facility] [place] [address] [place] [address] 03/18/2024 11:00 AM EDT Office Visit Dermatology [facility] [place] [address] Erica Rashid MD [facility] [place] [address] Scheduled Referrals Name Type Priority Associated Diagnoses [...] this encounter Medical Devices Implanted Type Area Supplemental Nurse Device Identifier Shelf Expiration Date Model / Serial / Lot Port Implant W/8f Poly Cath - [id number] Implanted:Qty : 1 on 11/23/2021 by Tae Porras DO at OR [facility] Right: Chest CR BARD : PERIPHERAL VASCULAR [id number] 09/03/2022 [id number] / / [id number] Port Implant W/8f Poly Cath - [id number] Implanted:Qty : 1 on 12/26/2022 by Fabián Del Cid, DO at OR [facility] Right: Chest CR BARD : PERIPHERAL VASCULAR [id number] 04/03/2024 [id number] / / [id number] documented as of this encounter Visit Diagnoses Diagnosis Oral ulcer- Primary Other and unspecified diseases of the oral soft tissues Acute myeloid leukemia in remission (HCC) Acute myeloid leukemia in remission documented in this encounter Advance Directives Documents on File Type Date Recorded 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 No Full Code 03/12/2022 5:18 PM 03/15/2022 7:16 PM This o rder reflects the patients wishes and were consensually agreed upon. Question Answer Comments Discussion of Advance Directives occurred with: Patient Does the patient have a Living Will? No Does the patient have Health Care Power of Port Captain? No Full Code 12/04/2021 5:18 PM 01/22/2022 8:17 PM This o rder reflects the patients wishes and were consensually agreed upon. Question Answer Comments Discussion of Advance Directives occurred with: Patient Does the patient have a Living Will? No Does the patient have Health Care Power of Port Captain? No Care Teams Machine Assistant Relationship Specialty Start Date End Date Anthony Rico III, MD [address] [place] [address] PCP - General 03/18/1996 documented as of this encounter
--- OUTSIDE RECORDS SUMMARY | 2023-06-29 11:03 | External Medical Summary | Summary of Care ---
Author Name Unknown Organization [facility] Address [address] [place] [address] Phone [phone] Care Team Providers Care Studio Receptionist Name Role Phone Jacky THOMAS MD, Anthony Moctezuma Primary Care Provider [phone] Reason for Referral * Evaluate & Treat - Unlimited Visits (Within 3 days (urgent)) - Pending Review Specialty Diagnoses / Procedures Referred By Gurmeet schreiber Referred To Contact Otolaryngology Diagnoses Oral ulcer Acute myeloid leukemia in remission (HCC) Berlin Killian MD 200 [facility] [place] [address] Referral ID Status Reason Start Date Expiration Date Visits Requested Visits Authorized [id number] Pending Review Specialty Services Required 3 999 [...] Encounter Details Date Type Department Care Team ([facility] st Contact Info) Description 06/23/2023 Telephone Hematology/Oncology Treatment, [place] [address] [place] [address] [place] Killian MD [facility], [place] [address] Referral (ENT) Allergies Active Allergy Reactions Criticality [...] below 70 01/01/2012 Anticoagulation management encounter 09/05/2010 assisted current use of anticoagulant therapy 0 09/05/2010 [...] encounter Miscellaneous Notes * Telephone Encounter - Stacy Manuel - [...] 06/30/2023 8:30 AM EST Laboratory Laboratory Scenery [place] [facility] [address] [place] [address] Park, Lab Scenery [address] [place] [address] 06/30/2023 9:00 AM EST Nurse Only Hematology/Oncology Scenery [facility] [address] [place] [address] Park, Nurse Hem Onc Scenery [address] [place] [address] 07/03/2023 8:30 AM EST Laboratory Laboratory Scenery [facility] [address] [place] [address] Park, Lab Scenery [address] [place] [address] 07/03/2023 9:00 AM EST Nurse Only Hematology/Oncology Scenery [facility] [address] [place] [address] Park, Nurse Hem Onc Scenery [address] [place] [address] 07/07/2023 8:30 AM EST Laboratory Laboratory Scenery [facility] [address] [place] [address] Park, Lab Scenery [address] [place] [address] 07/07/2023 9:00 AM EST Nurse Only Hematology/Oncology Scenery [place] [address] [place] [address] Park, Nurse Hem Onc Scenery [address] [place] [address] 07/10/2023 8:30 AM EST Laboratory Laboratory Scenery [facility] [address] [place] [address] Park, Lab Scenery [address] [place] [address] 07/10/2023 9:00 AM EST Nurse Only Hematology/Oncology Scenery [facility] [address] [place] [address] Park, Nurse Hem Onc Scenery [address] [place] [address] 07/14/2023 8:30 AM EST Laboratory Laboratory Scenery [facility] [address] [place] [address] Park, Lab Scenery [address] [place] [address] 07/14/2023 9:00 AM EST Nurse Only Hematology/Oncology Scenery [facility] [address] [place] [address] Park, Nurse Hem Onc Scenery [address] [place] [address] 07/17/2023 8:30 AM EST Laboratory Laboratory Scenery [facility] [address] [place] [address] Park, Lab Scenery [address] [place] [address] 07/17/2023 9:00 AM EST Nurse Only Hematology/Oncology Scenery [facility] [address] [place] [address] Park, Nurse Hem Onc Scenery [address] [place] [address] 07/21/2023 8:30 AM EST Laboratory Laboratory Scenery [facility] [address] [place] [address] Park, Lab Scenery [address] [place] [address] 07/21/2023 9:00 AM EST Nurse Only Hematology/Oncology Scenery [facility] [address] [place] [address] Park, Nurse Hem Onc Scenery [address] [place] [address] 07/24/2023 8:30 AM EST Laboratory Laboratory Scenery [facility] [address] [place] [address] Park, Lab Scenery [address] [place] [address] 07/24/2023 9:00 AM EST Nurse Only Hematology/Oncology Scenery [facility] [address] [place] [address] Park, Nurse Hem Onc Scenery [address] [place] [address] 07/24/2023 9:40 AM EST Office Visit Family Practice [facility] [address] [place] [address] Anthony Rico III, MD [address] [place] [address] 07/29/2023 8:30 AM EST Laboratory Laboratory Scenery [facility] [address] [place] [address] Park, Lab Scenery [address] [place] [address] 07/29/2023 9:00 AM EST Nurse Only Hematology/Oncology Scenery [place] [address] [place] [address] Park, Nurse Hem Onc Scenery [address] [place] [address] 07/31/2023 8:30 AM EST Laboratory Laboratory Scenery [facility] [address] [place] [address] Park, Lab Scenery [address] [place] [address] 07/31/2023 9:00 AM EST Nurse Only Hematology/Oncology Scenery [facility] [address] [place] [address] Park, Nurse Hem Onc Scenery [address] [place] [address] 08/05/2023 8:30 AM EST Laboratory Laboratory Scenery [facility] [address] [place] [address] Park, Lab Scenery [address] [place] [address] 08/05/2023 9:00 AM EST Nurse Only Hematology/Oncology Scenery [facility] [address] [place] [address] Park, Nurse Hem Onc Scenery [address] [place] [address] 08/07/2023 8:30 AM EST Laboratory Laboratory Scenery [facility] [address] [place] [address] Park, Lab Scenery [address] [place] [address] 08/07/2023 9:00 AM EST Nurse Only Hematology/Oncology Scenery [facility] [address] [place] [address] Park, Nurse Hem Onc Scenery [address] [place] [address] 08/11/2023 8:30 AM EST Laboratory Laboratory Scenery [facility] [address] [place] [address] Park, Lab Scenery [address] [place] [address] 08/11/2023 9:00 AM EST Nurse Only Hematology/Oncology Scenery [facility] [address] [place] [address] Park, Nurse Hem Onc Scenery [address] [place] [address] 08/14/2023 8:30 AM EST Laboratory Laboratory Scenery [facility] [address] [place] [address] Park, Lab Scenery [address] [place] [address] 08/14/2023 9:00 AM EST Nurse Only Hematology/Oncology Scenery [place] [address] [place], [place] [address] Park, Nurse Hem Onc Scenery [address] [place], [place] [address] 08/15/2023 11:00 AM EST Office Visit Cardiology, [facility] [address] [facility] [address] Katy García CRNP [facility] [address] 08/18/2023 8:30 AM EST Laboratory Laboratory [facility] [address] [place], [place] [address] Dorothy, Lab Scenery [address] [place], [place] [address] 08/18/2023 9:00 AM EST Nurse Only Hematology/Oncology [facility] [place] [address] [place], [place] [address] Dorothy, Nurse Hem Onc Scenery [address] [place], [place] [address] 08/21/2023 8:30 AM EST Laboratory Laboratory [facility] [place] [address] [place] [address] Park, Lab Scenery [address] [place] [address] 08/21/2023 9:00 AM EST Nurse Only Hematology/Oncology Scenery [place] [address] [place] [address] Park, Nurse Hem Onc Scenery [address] [place], [place] [address] 08/25/2023 8:30 AM EST Laboratory Laboratory Scenery [place], [place] [address] [place] [address] [place], Lab [facility] [address] [place] [address] 08/25/2023 9:00 AM EST Nurse Only Hematology/Oncology [facility] [address] [place] [address] Park, Nurse Hem Onc [facility] 200 [facility] [place] [address] 08/29/2023 9:15 AM EST Office Visit Hematology/Oncology [facility] [place] [address] [place] [address] [place] Killian MD [address] [place] [address] 10/03/2023 10:30 AM EST Office Visit Urology, [facility] [address] [place] [address] Kd Dickens MD 27 [facility] [address] [place] [address] 03/18/2024 11:00 AM EDT Office Visit Dermatology [facility] [address] [place] [address] Erica Rashid MD 200 [facility] [place] [address] Scheduled Referrals Name Type Priority Associated Diagnoses Order Schedule OTOLARYNGOLOGY REFERRAL OP Referral Within 3 days (urgent) Oral ulcer Acute myeloid leukemia in remission (HCC) Ordered: 06/23/2023 Health Maintenance Due Date Last Done Comments Diabetic Eye Exam 09/14/2019 09/14/2018, , 07/07/2017, Additional history exists DTaP,Tdap,and Td Vaccines (2 - Td or Tdap) 04/09/2021 04/09/2011 COVID-19 Vaccine (4 - 2023-24 season) 2023 06/19/2021, 10/24/2020, 10/03/2020 Influenza Vaccine [...] this encounter Medical Devices Implanted Type Area Commercial Pest Control Representative Device Identifier Shelf Expiration Date Model / Serial / Lot Port Implant W/8f Poly Cath - [id number] Implanted:Qty : 1 on 11/23/2021 by Tae Porras, DO at OR [facility] Right: Chest CR BARD : PERIPHERAL VASCULAR [id number] 09/03/2022 [id number] / / [id number] Port Implant W/8f Poly Cath - [id number] Implanted:Qty : 1 on 12/26/2022 by Fabián Del Cid, DO at OR [facility] Right: Chest CR BARD : PERIPHERAL VASCULAR [id number] 04/03/2024 [id number] / / [id number] documented as of this encounter Visit Diagnoses Diagnosis Oral ulcer- Primary Other and unspecified diseases of the oral soft tissues Acute myeloid leukemia in remission (HCC) Acute myeloid leukemia in remission documented in this encounter Advance Directives Documents on File Type Date Recorded Patient Security Operations Manager Expl anation Power of School Laboratory Technician 06/06/2022 POWER OF A TTORNEY Latest Code [...] the patient have Health Care Power of School Laboratory Technician? No Full Code 03/12/2022 5:18 PM 03/15/2022 7:16 PM This o rder reflects the patients wishes and were consensually agreed upon. Question Answer Comments Discussion of Advance Directives occurred with: Patient Does the patient have a Living Will? No Does the patient have Health Care Power of School Laboratory Technician? No Full Code 12/04/2021 5:18 PM 01/22/2022 8:17 PM This o rder reflects the patients wishes and were consensually agreed upon. Question Answer Comments Discussion of Advance Directives occurred with: Patient Does the patient have a Living Will? No Does the patient have Health Care Power of School Laboratory Technician? No Care Teams Studio Receptionist Relationship Specialty Start Date End Date Anthony Rico III, MD 200 [facility] [place] [address] PCP - General 03/18/1996 documented as of this encounter
--- OUTSIDE RECORDS SUMMARY | 2023-06-29 11:03 | External Medical Summary | Summary of Care ---
Author Name Unknown Organization [facility] Address [address] [place] [address] Phone [phone] Care Team Providers Care Police Officer Name Role Phone Jacky THOMAS MD, Anthony Moctezuma Primary Care Provider [phone] Reason for Referral * Evaluate & Treat - Unlimited Visits (Within 3 days (urgent)) - Pending Review Specialty Diagnoses / Procedures Referred By Gurmeet schreiber Referred To Contact Otolaryngology Diagnoses Oral ulcer Acute myeloid leukemia in remission (HCC) [place] Killian MD 200 [facility] [place] [address] Referral ID Status Reason Start Date Expiration Date Visits Requested Visits Authorized [id number] Pending Review Specialty Services Required 3 999 [...] Encounter Details Date Type Department Care Team ([facility] st Contact Info) Description 06/23/2023 Telephone Hematology/Oncology Treatment, [place] [address] [place] [address] [place] Killian MD 200 [facility], [place] [address] Referral (ENT) Allergies Active Allergy Reactions Criticality [...] below 70 01/01/2012 Anticoagulation management encounter 09/05/2010 [facility] current use of anticoagulant therapy 0 09/05/2010 [...] encounter Miscellaneous Notes * Telephone Encounter - Anup Liao PA-C [...] 06/30/2023 8:30 AM EST Laboratory Laboratory Scenery [place] [address] [place] [address] Dorothy, Lab Scenery [address] [place] [address] 06/30/2023 9:00 AM EST Nurse Only Hematology/Oncology Scenery [place] [address] [place] [address] Dorothy, Nurse Hem Onc Scenery [address] [place] [address] 07/03/2023 8:30 AM EST Laboratory Laboratory Scenery [facility] [address] [place] [address] Park, Lab Scenery [address] [place] [address] 07/03/2023 9:00 AM EST Nurse Only Hematology/Oncology Scenery [facility] [address] [place] [address] Park, Nurse Hem Onc Scenery [address] [place] [address] 07/07/2023 8:30 AM EST Laboratory Laboratory Scenery [facility] [address] [place] [address] Park, Lab Scenery [address] [place] [address] 07/07/2023 9:00 AM EST Nurse Only Hematology/Oncology Scenery [facility] [address] [place] [address] Park, Nurse Hem Onc Scenery [address] [place] [address] 07/10/2023 8:30 AM EST Laboratory Laboratory Scenery [facility] [address] [place] [address] Park, Lab Scenery [address] [place] [address] 07/10/2023 9:00 AM EST Nurse Only Hematology/Oncology Scenery [facility] [address] [place] [address] Park, Nurse Hem Onc Scenery [address] [place] [address] 07/14/2023 8:30 AM EST Laboratory Laboratory Scenery [facility] [address] [place] [address] Park, Lab Scenery [address] [place] [address] 07/14/2023 9:00 AM EST Nurse Only Hematology/Oncology Scenery [facility] [address] [place] [address] Park, Nurse Hem Onc Scenery [address] [place] [address] 07/17/2023 8:30 AM EST Laboratory Laboratory Scenery [place] [address] [place] [address] Park, Lab Scenery [address] [place] [address] 07/17/2023 9:00 AM EST Nurse Only Hematology/Oncology Scenery [facility] [address] [place] [address] Park, Nurse Hem Onc Scenery [address] [place] [address] 07/21/2023 8:30 AM EST Laboratory Laboratory Scenery [facility] [address] [place] [address] Park, Lab Scenery [address] [place] [address] 07/21/2023 9:00 AM EST Nurse Only Hematology/Oncology Scenery [place] [address] [place] [address] Park, Nurse Hem Onc Scenery [address] [place] [address] 07/24/2023 8:30 AM EST Laboratory Laboratory Scenery [facility] [address] [place] [address] Park, Lab Scenery [address] [place] [address] 07/24/2023 9:00 AM EST Nurse Only Hematology/Oncology Scenery [facility] [address] [place] [address] Park, Nurse Hem Onc Scenery [address] [place] [address] 07/24/2023 9:40 AM EST Office Visit Family Practice [facility] [address] [place] [address] Anthony Rico III, MD [address] [place] [address] 07/29/2023 8:30 AM EST Laboratory Laboratory [facility] [address] [place] [address] Park, Lab Scenery [address] [place] [address] 07/29/2023 9:00 AM EST Nurse Only Hematology/Oncology [facility] [address] [place] [address] Park, Nurse Hem Onc Scenery [address] [place] [address] 07/31/2023 8:30 AM EST Laboratory Laboratory [facility] [address] [place] [address] Park, Lab Scenery [address] [place] [address] 07/31/2023 9:00 AM EST Nurse Only Hematology/Oncology Scenery [facility] [address] [place] [address] Park, Nurse Hem Onc Scenery [address] [place] [address] 08/05/2023 8:30 AM EST Laboratory Laboratory [facility] [address] [place] [address] Park, Lab Scenery [address] [place] [address] 08/05/2023 9:00 AM EST Nurse Only Hematology/Oncology Scenery [facility] [address] [place] [address] Park, Nurse Hem Onc Scenery [address] [place] [address] 08/07/2023 8:30 AM EST Laboratory Laboratory Scenery [facility] [address] [place] [address] Park, Lab Scenery [address] [place] [address] 08/07/2023 9:00 AM EST Nurse Only Hematology/Oncology Scenery [facility] [address] [place] [address] Park, Nurse Hem Onc Scenery [address] [place] [address] 08/11/2023 8:30 AM EST Laboratory Laboratory Scenery [facility] [address] [place] [address] Park, Lab Scenery [address] [place] [address] 08/11/2023 9:00 AM EST Nurse Only Hematology/Oncology Scenery [facility] [address] [place] [address] Park, Nurse Hem Onc Scenery [address] [place] [address] 08/14/2023 8:30 AM EST Laboratory Laboratory Scenery [facility] [address] [place] [address] Park, Lab Scenery [address] [place] [address] 08/14/2023 9:00 AM EST Nurse Only Hematology/Oncology Scenery [facility] [address] [place] [address] Park, Nurse Hem Onc Scenery [address] [place] [address] 08/15/2023 11:00 AM EST Office Visit Cardiology, [facility] [address] [facility] [address] Katy García CRNP [address] [place] [address] 08/18/2023 8:30 AM EST Laboratory Laboratory Scenery [facility] [address] [place] [address] Park, Lab Scenery [address] [place] [address] 08/18/2023 9:00 AM EST Nurse Only Hematology/Oncology Scenery [facility] [address] [place] [address] Park, Nurse Hem Onc Scenery [address] [place], [place] [address] 08/21/2023 8:30 AM EST Laboratory Laboratory [facility] [address] [place] [address] Park, Lab Scenery [address] [place] [address] 08/21/2023 9:00 AM EST Nurse Only Hematology/Oncology Scenery [facility] [address] [place] [address] Park, Nurse Hem Onc Scenery [address] [place] [address] 08/25/2023 8:30 AM EST Laboratory Laboratory Scenery [facility] [address] [place] [address] Park, Lab Scenery [address] [place] [address] 08/25/2023 9:00 AM EST Nurse Only Hematology/Oncology Scenery [facility] [address] [place] [address] Dorothy Nurse Hem Onc [facility] [address] [place] [address] 08/29/2023 9:15 AM EST Office Visit Hematology/Oncology [facility] [address] [place] [address] [place] Killian MD [address] [place] [address] 10/03/2023 10:30 AM EST Office Visit Urology, [facility] [address] [facility] [place] [address] Kd Dickens MD 27 [facility] [address] [place] [address] 03/18/2024 11:00 AM EDT Office Visit Dermatology [facility] [address] [place] [address] Erica Rashid MD 200 [facility] [place] [address] Scheduled Referrals Name Type Priority Associated Diagnoses Order Schedule OTOLARYNGOLOGY REFERRAL OP Referral Within 3 days (urgent) Oral ulcer Acute myeloid leukemia in remission (HCC) Ordered: 06/23/2023 Health Maintenance Due Date Last Done Comments Diabetic Eye Exam 09/14/2019 09/14/2018, , 07/07/2017, Additional history exists DTaP,Tdap,and Td Vaccines (2 - Td or Tdap) 04/09/2021 04/09/2011 COVID-19 Vaccine (24 season) 2023 06/19/2021, 10/24/2020, 10/03/2020 Influenza Vaccine [...] this encounter Medical Devices Implanted Type Area Application Support Analyst Device Identifier Shelf Expiration Date Model / Serial / Lot Port Implant W/8f Poly Cath - [id number] Implanted:Qty : 1 on 11/23/2021 by Tae Porras DO at OR [facility] Right: Chest CR BARD : PERIPHERAL VASCULAR [id number] 09/03/2022 [id number] / / [id number] Port Implant W/8f Poly Cath - [id number] Implanted:Qty : 1 on 12/26/2022 by Fabián Del Cid, at OR [facility] Right: Chest CR BARD : PERIPHERAL VASCULAR [id number] 04/03/2024 [id number] / / [id number] documented as of this encounter Visit Diagnoses Diagnosis Oral ulcer- Primary Other and unspecified diseases of the oral soft tissues Acute myeloid leukemia in remission (HCC) Acute myeloid leukemia in remission documented in this encounter Advance Directives Documents on File Type Date Recorded Patient Monitor Worker Expl anation Power of Case Worker 06/06/2022 POWER OF A TTORNEY Latest Code [...] the patient have Health Care Power of Case Worker? No Full Code 03/12/2022 5:18 PM 03/15/2022 7:16 PM This o rder reflects the patients wishes and were consensually agreed upon. Question Answer Comments Discussion of Advance Directives occurred with: Patient Does the patient have a Living Will? No Does the patient have Health Care Power of Case Worker? No Full Code 12/04/2021 5:18 PM 01/22/2022 8:17 PM This o rder reflects the patients wishes and were consensually agreed upon. Question Answer Comments Discussion of Advance Directives occurred with: Patient Does the patient have a Living Will? No Does the patient have Health Care Power of Case Worker? No Care Teams Police Officer Relationship Specialty Start Date End Date Anthony Rico III, MD [address] [place] [address] [place] [address] PCP - General 03/18/1996 documented as of this encounter
--- OUTSIDE RECORDS SUMMARY | 2023-06-29 11:03 | External Medical Summary | Summary of Care ---
Author Name Unknown Organization [facility] Address [address] [place] [address] Phone [phone] Care Team Providers Care Statistical Consultant Name Role Phone Jacky THOMAS MD, Anthony Moctezuma Primary Care Provider [phone] Reason for Referral * Evaluate & Treat - Unlimited Visits (Within 3 days (urgent)) - Pending Review Specialty Diagnoses / Procedures Referred By Gurmeet schreiber Referred To Contact Otolaryngology Diagnoses Oral ulcer Acute myeloid leukemia in remission (HCC) [place] Killian MD 200 [facility] [place] [address] Referral ID Status Reason Start Date Expiration Date Visits Requested Visits Authorized [id number] Pending Review Specialty Services Required 3 999 [...] Encounter Details Date Type Department Care Team ([facility] st Contact Info) Description 06/23/2023 Telephone Hematology/Oncology Treatment, [place] [address] [place] [address] [place] Killian MD 200 [facility], [place] [address] Referral (ENT) Allergies Active Allergy Reactions Criticality [...] below 70 01/01/2012 Anticoagulation management encounter 09/05/2010 group home current use of anticoagulant therapy 0 [...] 06/30/2023 8:30 AM EST Laboratory Laboratory Scenery [place] [address] [place] [address] Dorothy, Lab Scenery [address] [place] [address] 06/30/2023 9:00 AM EST Nurse Only Hematology/Oncology Scenery [place] [address] [place] [address] Dorothy, Nurse Hem Onc Scenery [address] [place] [address] 07/03/2023 8:30 AM EST Laboratory Laboratory Scenery [facility] [address] [place] [address] Park, Lab Scenery [address] [place] [address] 07/03/2023 9:00 AM EST Nurse Only Hematology/Oncology Scenery [facility] [address] [place] [address] Park, Nurse Hem Onc Scenery [address] [place] [address] 07/07/2023 8:30 AM EST Laboratory Laboratory Scenery [facility] [address] [place] [address] Park, Lab Scenery [address] [place] [address] 07/07/2023 9:00 AM EST Nurse Only Hematology/Oncology Scenery [facility] [address] [place] [address] Park, Nurse Hem Onc Scenery [address] [place] [address] 07/10/2023 8:30 AM EST Laboratory Laboratory Scenery [facility] [address] [place] [address] Park, Lab Scenery [address] [place] [address] 07/10/2023 9:00 AM EST Nurse Only Hematology/Oncology Scenery [facility] [address] [place] [address] Park, Nurse Hem Onc Scenery [address] [place] [address] 07/14/2023 8:30 AM EST Laboratory Laboratory Scenery [facility] [address] [place] [address] Park, Lab Scenery [address] [place] [address] 07/14/2023 9:00 AM EST Nurse Only Hematology/Oncology Scenery [facility] [address] [place] [address] Park, Nurse Hem Onc Scenery [address] [place] [address] 07/17/2023 8:30 AM EST Laboratory Laboratory Scenery [place] [address] [place] [address] Park, Lab Scenery [address] [place] [address] 07/17/2023 9:00 AM EST Nurse Only Hematology/Oncology Scenery [facility] [address] [place] [address] Park, Nurse Hem Onc Scenery [address] [place] [address] 07/21/2023 8:30 AM EST Laboratory Laboratory Scenery [facility] [address] [place] [address] Park, Lab Scenery [address] [place] [address] 07/21/2023 9:00 AM EST Nurse Only Hematology/Oncology Scenery [place] [address] [place] [address] Park, Nurse Hem Onc Scenery [address] [place] [address] 07/24/2023 8:30 AM EST Laboratory Laboratory Scenery [facility] [address] [place] [address] Park, Lab Scenery [address] [place] [address] 07/24/2023 9:00 AM EST Nurse Only Hematology/Oncology Scenery [facility] [address] [place] [address] Park, Nurse Hem Onc Scenery [address] [place] [address] 07/24/2023 9:40 AM EST [facility] [address] [place] [address] Anthony Rico III, MD [address] [place] [address] 07/29/2023 8:30 AM EST Laboratory Laboratory [facility] [address] [place] [address] Park, Lab Scenery [address] [place] [address] 07/29/2023 9:00 AM EST Nurse Only [facility]ematology[facility] [address] [place] [address] Park, Nurse Hem Onc Scenery [address] [place] [address] 07/31/2023 8:30 AM EST Laboratory Laboratory [facility] [address] [place] [address] Park, Lab Scenery [address] [place] [address] 07/31/2023 9:00 AM EST Nurse Only Hematology/Oncology Scenery [facility] [address] [place] [address] Park, Nurse Hem Onc Scenery [address] [place] [address] 08/05/2023 8:30 AM EST Laboratory Laboratory [facility] [address] [place] [address] Park, Lab Scenery [address] [place] [address] 08/05/2023 9:00 AM EST Nurse Only Hematology/Oncology Scenery [facility] [address] [place] [address] Park, Nurse Hem Onc Scenery [address] [place] [address] 08/07/2023 8:30 AM EST Laboratory Laboratory Scenery [facility] [address] [place] [address] Park, Lab Scenery [address] [place] [address] 08/07/2023 9:00 AM EST Nurse Only Hematology/Oncology Scenery [facility] [address] [place] [address] Park, Nurse Hem Onc Scenery [address] [place] [address] 08/11/2023 8:30 AM EST Laboratory Laboratory Scenery [facility] [address] [place] [address] Park, Lab Scenery [address] [place] [address] 08/11/2023 9:00 AM EST Nurse Only Hematology/Oncology Scenery [facility] [address] [place] [address] Park, Nurse Hem Onc Scenery [address] [place] [address] 08/14/2023 8:30 AM EST Laboratory Laboratory Scenery [facility] [address] [place] [address] Park, Lab Scenery [address] [place] [address] 08/14/2023 9:00 AM EST Nurse Only Hematology/Oncology Scenery [facility] [address] [place] [address] Park, Nurse Hem Onc Scenery [address] [place] [address] 08/15/2023 11:00 AM EST Office Visit Cardiology, [facility] [address] [facility] [address] Katy García CRNP [address] [place] [address] 08/18/2023 8:30 AM EST Laboratory Laboratory Scenery [facility] [address] [place] [address] Park, Lab Scenery [address] [place] [address] 08/18/2023 9:00 AM EST Nurse Only Hematology/Oncology Scenery [facility] [address] [place] [address] Park, Nurse Hem Onc Scenery [address] [place], [place] [address] 08/21/2023 8:30 AM EST Laboratory Laboratory [facility] [address] [place] [address] Park, Lab Scenery [address] [place] [address] 08/21/2023 9:00 AM EST Nurse Only Hematology/Oncology Scenery [facility] [address] [place] [address] Park, Nurse Hem Onc Scenery [address] [place] [address] 08/25/2023 8:30 AM EST Laboratory Laboratory Scenery [facility] [address] [place] [address] Park, Lab Scenery [address] [place] [address] 08/25/2023 9:00 AM EST Nurse Only Hematology/Oncology Scenery [facility] [address] [place] [address] Dorothy Nurse Hem Onc [facility] [address] [place] [address] 08/29/2023 9:15 AM EST Office Visit Hematology/Oncology [facility] [address] [place] [address] [place] Killian MD [address] [place] [address] 10/03/2023 10:30 AM EST Office Visit Urology, [facility] [address] [facility] [place] [address] Kd Dickens MD 27 [facility] [place] [address] [place] [address] 03/18/2024 11:00 AM EDT Office Visit Dermatology [facility] [address] [place] [address] Erica Rashid MD 200 [facility] [place] [address] Scheduled Referrals Name Type Priority Associated Diagnoses [...] this encounter Medical Devices Implanted Type Area Private Duty Nurse Device Identifier Shelf Expiration Date Model / Serial / Lot Port Implant W/8f Poly Cath - [id number] Implanted:Qty : 1 on 11/23/2021 by Tae Porras DO at OR [facility] Right: Chest CR BARD : PERIPHERAL VASCULAR [id number] 09/03/2022 [id number] / / [id number] Port Implant W/8f Poly Cath - [id number] Implanted:Qty : 1 on 12/26/2022 by Fabián Del Cid, at OR [facility] Right: Chest CR BARD : PERIPHERAL VASCULAR [id number] 04/03/2024 [id number] / / [id number] documented as of this encounter Visit Diagnoses Diagnosis Oral ulcer- Primary Other and unspecified diseases of the oral soft tissues Acute myeloid leukemia in remission (HCC) Acute myeloid leukemia in remission documented in this encounter Advance Directives Documents on File Type Date Recorded Patient Sql Server Dba Developer Expl anation Power of Salesperson Driver 06/06/2022 POWER OF A TTORNEY Latest Code [...] the patient have Health Care Power of Salesperson Driver? No Full Code 03/12/2022 5:18 PM 03/15/2022 7:16 PM This o rder reflects the patients wishes and were consensually agreed upon. Question Answer Comments Discussion of Advance Directives occurred with: Patient Does the patient have a Living Will? No Does the patient have Health Care Power of Salesperson Driver? No Full Code 12/04/2021 5:18 PM 01/22/2022 8:17 PM This o rder reflects the patients wishes and were consensually agreed upon. Question Answer Comments Discussion of Advance Directives occurred with: Patient Does the patient have a Living Will? No Does the patient have Health Care Power of Salesperson Driver? No Care Teams Statistical Consultant Relationship Specialty Start Date End Date Anthony Rico III, MD [address] [place] [address] [place] [address] PCP - General 03/18/1996 documented as of this encounter
--- OUTSIDE RECORDS SUMMARY | 2023-06-29 11:03 | External Medical Summary | Summary of Care ---
Author Name Unknown Organization [facility] Address [address] [facility] [address] Phone [phone] Care Team Providers Care Receiving Tank Operator Name Role Phone Jacky THOMAS MD, Anthony Moctezuma Primary Care Provider [phone] Reason for Visit * Reason Onset Date Comments Appointment 06/23/2023 Encounter Details Date Type Department Care Team (Late st Contact Info) Description 06/23/2023 Telephone Hematology/Oncology [facility] 200 [facility] [place] [address] [place] Killian MD 200 [place] [address] Appointment Allergies Active Allergy Reactions Criticality Noted Date [...] 70 01/01/2012 Anticoagulation management encounter 09/05/2010 intermediate current use of anticoagulant therapy 0 09/05/2010 [...] mRNA, LNP-s, No Pre serve, 2-Dose Series (myseekit) 06/19/2021,10/24/2020,10/03/2020 H1N1 2009 Influenza, IM 06/14/2009 Hepatitis [...] encounter Miscellaneous Notes * Telephone Encounter - Erica Feliciano OSA - 06/23/2023 10:54 AM EST ENT-please contact patient for an appt in regards to Patient with AML, mouth sore noted on right side of tongue. Reports this is very painful, difficulty eating/ drinking, has lost >10 lbs in the past month due to not being able to eat/ drink. Requesting ENT referral for recommendations. Thank you documented in this encounter Plan of Treatment Upcoming Encounters Date Type Department Care Team (Late st Contact Info) Description 06/30/2023 8:30 AM EST Laboratory Laboratory [facility] [place] [address] [place] [phone] Park, Lab Scenery [address] [place] [address] [address] 06/30/2023 9:00 AM EST Nurse Only Hematology/Oncology [facility] [place] [address] [place] [address] Park, Nurse Hem Onc Scenery [address] [place] [address] [place] [address] 07/03/2023 8:30 AM EST Laboratory Laboratory [facility] [place] [address] [place] [address] Park, Lab Scenery [address] [place] [address] 07/03/2023 9:00 AM EST Nurse Only Hematology/Oncology Scenery [facility] [address] [place] [address] Park, Nurse Hem Onc Scenery [address] [place] [address] 07/07/2023 8:30 AM EST Laboratory Laboratory Scenery [facility] [address] [place] [address] Park, Lab Scenery [address] [place] [address] 07/07/2023 9:00 AM EST Nurse Only Hematology/Oncology Scen[facility] [address] [place] [address] Park, Nurse Hem Onc Scenery [address] [place] [address] 07/10/2023 8:30 AM EST Laboratory Laboratory Scenery [facility] [address] [place] [address] Park, Lab Scenery [address] [place] [address] 07/10/2023 9:00 AM EST Nurse Only Hematology/Oncology [facility] [place] [address] [place] [address] Park, Nurse Hem Onc Scenery [address] [place] [address] 07/14/2023 8:30 AM EST Laboratory Laboratory Scenery [facility] [address] [place] [address] Park, Lab Scenery [address] [place] [address] 07/14/2023 9:00 AM EST Nurse Only Hematology/Oncology Scenery [facility] [address] [place] [address] Park, Nurse Hem Onc Scenery [address] [place] [address] 07/17/2023 8:30 AM EST Laboratory Laboratory Scenery [facility] [address] [place] [address] Park, Lab Scenery [address] [place] [address] 07/17/2023 9:00 AM EST Nurse Only Hematology/Oncology Scenery [facility] [address] [place] [address] Park, Nurse Hem Onc Scenery [address] [place] [address] 07/21/2023 8:30 AM EST Laboratory Laboratory Scenery [facility] [address] [place] [address] Park, Lab Scenery [address] [place] [address] 07/21/2023 9:00 AM EST Nurse Only Hematology/Oncology [facility] [place] [address] [place] [address] Park, Nurse Hem Onc Scenery [address] [place] [address] 07/24/2023 8:30 AM EST Laboratory Laboratory Scenery [facility] [address] [place] [address] Park, Lab Scenery [address] [place] [address] 07/24/2023 9:00 AM EST Nurse Only Hematology/Oncology Scenery [facility] [address] [place] [address] Park, Nurse Hem Onc Scenery [address] [place] [address] 07/24/2023 9:40 AM EST Office Visit Family Practice [facility] [address] [place] [address] Putnam III, Anthony Moctezuma MD [address] [place] [address] 07/29/2023 8:30 AM EST Laboratory Laboratory [facility] [address] [place] [address] Park, Lab Scenery [address] [place] [address] 07/29/2023 9:00 AM EST Nurse Only Hematology/Oncology Scenery [facility] [address] [place] [address] Park, Nurse Hem Onc Scenery [address] [place] [address] 07/31/2023 8:30 AM EST Laboratory Laboratory Scenery [facility] [address] [place] [address] Park, Lab Scenery [address] [place] [address] 07/31/2023 9:00 AM EST Nurse Only Hematology/Oncology [facility] [place] [address] [place] [address] Park, Nurse Hem Onc Scenery [address] [place] [address] 08/05/2023 8:30 AM EST Laboratory Laboratory Scenery [facility] [address] [place] [address] Park, Lab Scenery [address] [place] [address] 08/05/2023 9:00 AM EST Nurse Only Hematology/Oncology Scenery [facility] [address] [place] [address] Park, Nurse Hem Onc Scenery [address] [place] [address] 08/07/2023 8:30 AM EST Laboratory Laboratory Scenery [facility] [address] [place] [address] Park, Lab Scenery [address] [place] [address] 08/07/2023 9:00 AM EST Nurse Only Hematology/Oncology Scenery [facility] [address] [place] [address] Park, Nurse Hem Onc Scenery [address] [place] [address] 08/11/2023 8:30 AM EST Laboratory Laboratory Scenery [facility] [address] [place], [place] [address] Dorothy, Lab Scenery [address] [place] [address] 08/11/2023 9:00 AM EST Nurse Only Hematology/Oncology [facility] [place] [address] [place] [address] Park, Nurse Hem Onc Scenery [address] [place] [address] 08/14/2023 8:30 AM EST Laboratory Laboratory [facility] [place] [address] [place] [address] Park, Lab Scenery [address] [place] [address] 08/14/2023 9:00 AM EST Nurse Only Hematology/Oncology [facility] [place] [address] [place] [address] Park, Nurse Hem Onc Scenery [address] [place] [address] 08/15/2023 11:00 AM EST Office Visit Cardiology, [facility] [address] [facility] [place] [address] Katy García, BRINE TANK TENDER [address] [place] [address] 08/18/2023 8:30 AM EST Laboratory Laboratory Scenery [facility] [address] [place] [address] Park, Lab Scenery [address] [place] [address] 08/18/2023 9:00 AM EST Nurse Only Hematology/Oncology Scenery [facility] [address] [place] [address] Park, Nurse Hem Onc Scenery [address] [place] [address] 08/21/2023 8:30 AM EST Laboratory Laboratory Scenery [facility] [address] [place] [address] Park, Lab Scenery [address] [place] [address] 08/21/2023 9:00 AM EST Nurse Only Hematology/Oncology Scenery [facility] [address] [place] [address] Park, Nurse Hem Onc Scenery [address] [place] [address] 08/25/2023 8:30 AM EST Laboratory Laboratory Scenery [facility] [address] [place] [address] Park, Lab Scenery [address] [place] [address] 08/25/2023 9:00 AM EST Nurse Only Hematology/Oncology Scenery [facility] [address] [place] [address] Park, Nurse Hem Onc Scenery [address] [place] [address] 08/29/2023 9:15 AM EST Office Visit Hematology/Oncology [facility] [address] [place], [place] [address] [place] Killian MD 200 [facility] [place] [address] 10/03/2023 10:30 AM EST Office Visit Urology, [facility] 132 [facility] [place] [address] Kd Dickens MD [address] [place] [address] 03/18/2024 11:00 AM EDT Office Visit Dermatology [facility] [address] [place] [address] Erica Rashid MD 200 [facility] [place], [place] [address] Health Maintenance Due Date Last Done Comments [...] this encounter Medical Devices Implanted Type Area Carry Out Clerk Device Identifier Shelf Expiration Date Model / Serial / Lot Port Implant W/8f Poly Cath - [id number] Implanted:Qty : 1 on 11/23/2021 by Tae Porras DO at OR [facility] Right: Chest CR BARD : PERIPHERAL VASCULAR [id number] 09/03/2022 [id number] / / [id number] Port Implant W/8f Poly Cath - [id number] Implanted:Qty : 1 on 12/26/2022 by Fabián Del Cid, DO at OR [facility] Right: Chest CR BARD : PERIPHERAL VASCULAR [id number] 04/03/2024 [id number] / / [id number] documented as of this encounter Advance Directives Documents on File Type Date Recorded Patient Setter Out Expl anation Power of Vamp Seamer 06/06/2022 POWER OF A TTORNEY Latest Code [...] the patient have Health Care Power of Vamp Seamer? No Full Code 03/12/2022 5:18 PM 03/15/2022 7:16 PM This o rder reflects the patients wishes and were consensually agreed upon. Question Answer Comments Discussion of Advance Directives occurred with: Patient Does the patient have a Living Will? No Does the patient have Health Care Power of Vamp Seamer? No Full Code 12/04/2021 5:18 PM 01/22/2022 8:17 PM This o rder reflects the patients wishes and were consensually agreed upon. Question Answer Comments Discussion of Advance Directives occurred with: Patient Does the patient have a Living Will? No Does the patient have Health Care Power of Vamp Seamer? No Care Teams Receiving Tank Operator Relationship Specialty Start Date End Date Anthony Rico III, MD [address] [place] [address] PCP - General 03/18/1996 documented as of this encounter
--- OUTSIDE RECORDS SUMMARY | 2023-06-29 11:03 | External Medical Summary | Summary of Care ---
Author Name Unknown Organization [facility] Address [address] [place] [address] Phone [phone] Care Team Providers Care Pelt Salter Name Role Phone Jacky THOMAS MD, Anthony Moctezuma Primary Care Provider [phone] Reason for Referral * Evaluate & Treat - Unlimited Visits (Within 3 days (urgent)) - Pending Review Specialty Diagnoses / Procedures Referred By Gurmeet schreiber Referred To Contact Otolaryngology Diagnoses Oral ulcer Acute myeloid leukemia in remission (HCC) [place] Killian MD 200 [facility] [place] [address] Referral ID Status Reason Start Date Expiration Date Visits Requested Visits Authorized [id number] Pending Review Specialty Services Required 3 999 [...] Encounter Details Date Type Department Care Team ([facility] st Contact Info) Description 06/23/2023 Telephone Hematology/Oncology Treatment, [place] [address] [place] [address] [place] Killian MD 200 [facility], [place] [address] Referral (ENT) Allergies Active Allergy Reactions Criticality [...] below 70 01/01/2012 Anticoagulation management encounter 09/05/2010 [facility] current use of anticoagulant therapy 0 09/05/2010 [...] Description 06/30/2023 8:30 AM EST Laboratory Laboratory [facility] [address] [place] [address] Park, Lab Scenery [address] [facility] [place] [address] 06/30/2023 9:00 AM EST Nurse Only Hematology/Oncology Scenery [place] [address] [place] [address] Park, Nurse Hem Onc Scenery [address] [place] [address] 07/03/2023 8:30 AM EST Laboratory Laboratory Scenery [facility] [address] [place] [address] Park, Lab Scenery [address] [facility] [place], [place] [address] 07/03/2023 9:00 AM EST Nurse Only Hematology/Oncology Scenery [facility] [address] [place] [address] Park, Nurse Hem Onc Scenery [address] [place] [address] 07/07/2023 8:30 AM EST Laboratory Laboratory Scenery [facility] [address] [place] [address] Park, Lab Scenery [address] [place] [address] 07/07/2023 9:00 AM EST Nurse Only Hematology/Oncology Scenery [facility] [address] [place] [address] Park, Nurse Hem Onc Scenery [address] [place] [address] 07/10/2023 8:30 AM EST Laboratory Laboratory Scenery [facility] [address] [place] [address] Park, Lab Scenery [address] [place] [address] 07/10/2023 9:00 AM EST Nurse Only Hematology/Oncology Scenery [facility] [address] [place] [address] Park, Nurse Hem Onc Scenery [address] [place] [address] 07/14/2023 8:30 AM EST Laboratory Laboratory Scenery [facility] [address] [place] [address] Park, Lab Scenery [address] [place] [address] 07/14/2023 9:00 AM EST Nurse Only Hematology/Oncology Scenery [facility] [address] [place] [address] Park, Nurse Hem Onc Scenery [address] [place] [address] 07/17/2023 8:30 AM EST Laboratory Laboratory Scenery [facility] [address] [place] [address] Park, Lab Scenery [address] [place] [address] 07/17/2023 9:00 AM EST Nurse Only Hematology/Oncology Scenery [facility] [address] [place] [address] Park, Nurse Hem Onc Scenery [address] [place] [address] 07/21/2023 8:30 AM EST Laboratory Laboratory [facility] [address] [place] [address] Dorothy, Lab Scenery [address] [place] [address] 07/21/2023 9:00 AM EST Nurse Only Hematology/Oncology Scenery [facility] [address] [place] [address] Park, Nurse Hem Onc Scenery [address] [place] [address] 07/24/2023 8:30 AM EST Laboratory Laboratory [facility] [place] [address] [place] [address] Park, Lab Scenery [address] [place] [address] 07/24/2023 9:00 AM EST Nurse Only Hematology/Oncology Scenery [place] [address] [place] [address] Park, Nurse Hem Onc Scenery [address] [place] [address] 07/24/2023 9:40 AM EST Office Visit Family Practice [facility] [address] [place] [address] Jacky Anthony THOMAS MD [address] [place] [address] 07/29/2023 8:30 AM EST Laboratory Laboratory Scenery [facility] [address] [place] [address] Park, Lab Scenery [address] [place] [address] 07/29/2023 9:00 AM EST Nurse Only Hematology/Oncology Scenery [facility] [address] [place] [address] Park, Nurse Hem Onc Scenery [address] [place] [address] 07/31/2023 8:30 AM EST Laboratory Laboratory Scenery [facility] [address] [place] [address] Park, Lab Scenery [address] [place] [address] 07/31/2023 9:00 AM EST Nurse Only Hematology/Oncology Scenery [facility] [address] [place] [address] Park, Nurse Hem Onc Scenery [address] [place] [address] 08/05/2023 8:30 AM EST Laboratory Laboratory Scenery [facility] [address] [place] [address] Park, Lab Scenery [address] [place] [address] 08/05/2023 9:00 AM EST Nurse Only Hematology/Oncology Scenery [facility] [address] [place] [address] Park, Nurse Hem Onc Scenery [address] [place] [address] 08/07/2023 8:30 AM EST Laboratory Laboratory Scenery [facility] [address] [place] [address] Park, Lab Scenery [address] [place] [address] 08/07/2023 9:00 AM EST Nurse Only Hematology/Oncology Scenery [facility] [address] [place] [address] Park, Nurse Hem Onc Scenery [address] [place] [address] 08/11/2023 8:30 AM EST Laboratory Laboratory Scenery [facility] [address] [place] [address] Park, Lab Scenery [address] [place] [address] 08/11/2023 9:00 AM EST Nurse Only Hematology/Oncology Scenery [facility] [address] [place] [address] Park, Nurse Hem Onc Scenery [address] [place] [address] 08/14/2023 8:30 AM EST Laboratory Laboratory [facility] [address] [place] [address] Park, Lab Scenery [address] [place] [address] 08/14/2023 9:00 AM EST Nurse Only Hematology/Oncology Scenery [facility] [address] [place] [address] Park, Nurse Hem Onc Scenery [address] [place] [address] 08/15/2023 11:00 AM EST Office Visit Cardiology, [facility] 132 [facility] [place] [id number] Katy García CRNP [address] [place] [address] 08/18/2023 8:30 AM EST Laboratory Laboratory Scenery [facility] [address] [place] [address] Park, Lab Scenery [address] [place] [address] 08/18/2023 9:00 AM EST Nurse Only Hematology/Oncology Scenery [facility] [address] [place] [address] Park, Nurse Hem Onc Scenery [address] [place] [address] 08/21/2023 8:30 AM EST Laboratory Laboratory [facility] [address] [place] [address] Park, Lab Scenery [address] [place] [address] 08/21/2023 9:00 AM EST Nurse Only Hematology/Oncology [facility] [address] [place] [address] Park, Nurse Hem Onc Scenery [address] [place] [address] 08/25/2023 8:30 AM EST Laboratory Laboratory Scenery [facility] [address] [place] [address] Park, Lab Scenery [address] [place] [address] 08/25/2023 9:00 AM EST Nurse Only Hematology/Oncology Scenery [facility] [address] [place] [address] Park, Nurse Hem Onc Scenery [address] [place] [address] 08/29/2023 9:15 AM EST Office Visit Hematology/Oncology Scenery [facility] [address] [place] [address] [place] Killian MD 200 [facility] [place] [address] 10/03/2023 10:30 AM EST Office Visit [facility]rology, [facility] [place] [address] Kd Dickens MD 27 [facility] [address] [place] [address] 03/18/2024 11:00 AM EDT Office Visit Dermatology [facility] 200 [facility] [place] [address] Erica Rashid MD 200 [facility] [place] [address] Scheduled Referrals Name Type Priority Associated Diagnoses [...] this encounter Medical Devices Implanted Type Area Career Transition Specialist Device Identifier Shelf Expiration Date Model / Serial / Lot Port Implant W/8f Poly Cath - [id number] Implanted:Qty : 1 on 11/23/2021 by Tae Porras DO at OR [facility] Right: Chest CR BARD : PERIPHERAL VASCULAR [id number] 09/03/2022 [id number] / / [id number] Port Implant W/8f Poly Cath - [id number] Implanted:Qty : 1 on 12/26/2022 by Fabián Del Cid DO at OR 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 No Full Code 03/12/2022 5:18 PM 03/15/2022 7:16 PM This o rder reflects the patients wishes and were consensually agreed upon. Question Answer Comments Discussion of Advance Directives occurred with: Patient Does the patient have a Living Will? No Does the patient have Health Care Power of Regulatory Scientist? No Full Code 12/04/2021 5:18 PM 01/22/2022 8:17 PM This o rder reflects the patients wishes and were consensually agreed upon. Question Answer Comments Discussion of Advance Directives occurred with: Patient Does the patient have a Living Will? No Does the patient have Health Care Power of Regulatory Scientist? No Care Teams Pelt Salter Relationship Specialty Start Date End Date Anthony Rico III, MD [address] [place] [address] PCP - General 03/18/1996 documented as of this encounter
--- OUTSIDE RECORDS SUMMARY | 2023-06-29 11:04 | External Medical Summary | Summary of Care ---
Author Name Unknown Organization [facility] Address [address] [place] [address] Phone [phone] Care Team Providers Care Risk Management Specialist Name Role Phone Jacky THOMAS MD, Anthony Moctezuma Primary Care Provider [phone] Reason for Referral * Evaluate & Treat - Unlimited Visits (Within 3 days (urgent)) - Pending Review Specialty Diagnoses / Procedures Referred By Gurmeet schreiber Referred To Contact Otolaryngology Diagnoses Oral ulcer Acute myeloid leukemia in remission (HCC) [place] Killian MD 200 [facility] [place] [address] Referral ID Status Reason Start Date Expiration Date Visits Requested Visits Authorized [id number] Pending Review Specialty Services Required 3 999 [...] Encounter Details Date Type Department Care Team ([facility] st Contact Info) Description 06/23/2023 Telephone Hematology/Oncology Treatment, [place] [address] [place] [address] [place] Killian MD 200 [facility], [place] [address] Referral (ENT) Allergies Active Allergy Reactions Criticality [...] below 70 01/01/2012 Anticoagulation management encounter 09/05/2010 care home current use of anticoagulant therapy 0 [...] 06/30/2023 8:30 AM EST Laboratory Laboratory Scenery [facility] [address] [place] [phone] Park, Lab Scenery [address] [place], [place] [address] 06/30/2023 9:00 AM EST Nurse Only Hematology/Oncology [facility]ery [place] [address] [place], [place] [address] Park, Nurse Hem Onc Scenery [address] [place], [place] [address] 07/03/2023 8:30 AM EST Laboratory Laboratory [facility] [place] [address] [place], [place] [address] Park, Lab Scenery [address] [place] [address] 07/03/2023 9:00 AM EST Nurse Only Hematology/Oncology [facility] [place] [address] [place], [place] [address] Park, Nurse Hem Onc Scenery [address] [place], [place] [address] 07/07/2023 8:30 AM EST Laboratory Laboratory [place], [place] [address] [place] [address] Park, Lab Scenery [address] [place] [address] 07/07/2023 9:00 AM EST Nurse Only Hematology/Oncology Scenery [facility] [address] [place] [address] Park, Nurse Hem Onc Scenery [address] [place] [address] 07/10/2023 8:30 AM EST Laboratory Laboratory Scenery [facility] [address] [place] [address] Park, Lab Scenery [address] [place] [address] 07/10/2023 9:00 AM EST Nurse Only Hematology/Oncology Scenery [facility] [address] [place] [address] Park, Nurse Hem Onc Scenery [address] [place] [address] 07/14/2023 8:30 AM EST Laboratory Laboratory Scenery [facility] [address] [place] [address] Park, Lab Scenery [address] [place] [address] 07/14/2023 9:00 AM EST Nurse Only Hematology/Oncology Scenery [facility] [address] [place] [address] Park, Nurse Hem Onc Scenery [address] [place] [address] 07/17/2023 8:30 AM EST Laboratory Laboratory Scenery [facility] [address] [place] [address] Park, Lab Scenery [address] [place] [address] 07/17/2023 9:00 AM EST Nurse Only Hematology/Oncology [facility] [place] [address] [place] [address] Park, Nurse Hem Onc Scenery [address] [place], [place] [address] 07/21/2023 8:30 AM EST Laboratory Laboratory [facility] [place] [address] [place] [address] Park, Lab Scenery [address] [place] [address] 07/21/2023 9:00 AM EST Nurse Only Hematology/Oncology [facility] [place] [address] [place], [place] [address] Park, Nurse Hem Onc Scenery [address] [place], [place] [address] 07/24/2023 8:30 AM EST Laboratory Laboratory [facility] [place] [address] [place] [address] Park, Lab Scenery [address] [facility] [place] [address] 07/24/2023 9:00 AM EST Nurse Only Hematology/Oncology [facility] [place] [address] [place] [address] Park, Nurse Hem Onc Scenery [address] [place] [address] 07/24/2023 9:40 AM EST Office Visit Family Practice [facility] [place] [address] [place] [address] Kingman III, Anthony Moctezuma MD [address] [place] [address] 07/29/2023 8:30 AM EST Laboratory Laboratory [facility] [address] [place] [address] Park, Lab Scenery [address] [place] [address] 07/29/2023 9:00 AM EST Nurse Only Hematology/Oncology Scenery [facility] [address] [place] [address] Park, Nurse Hem Onc Scenery [address] [place] [address] 07/31/2023 8:30 AM EST Laboratory Laboratory Sc[facility]ery [facility] [address] [place] [address] Park, Lab Scenery [address] [place] [address] 07/31/2023 9:00 AM EST Nurse Only Hematology/Oncology [facility]enery [facility] [address] [place] [address] Park, Nurse Hem Onc Scenery [address] [place] [address] 08/05/2023 8:30 AM EST Laboratory Laboratory Scenery [facility] [address] [place] [address] Park, Lab Scenery [address] [place] [address] 08/05/2023 9:00 AM EST Nurse Only Hematology/Oncology Sc[facility]ery [facility] [address] [place] [address] Park, Nurse Hem Onc Scenery [address] [place] [address] 08/07/2023 8:30 AM EST Laboratory Laboratory Sc[facility] [address] [place] [address] Park, Lab Scenery [address] [place] [address] 08/07/2023 9:00 AM EST Nurse Only Hematology/Oncology [facility] [address] [place] [address] Park, Nurse Hem Onc Scenery [address] [place] [address] 08/11/2023 8:30 AM EST Laboratory Laboratory [facility] [address] [place] [address] Park, Lab Scenery [address] [place] [address] 08/11/2023 9:00 AM EST Nurse Only Hematology/Oncology [facility] [address] [place] [address] Park, Nurse Hem Onc Scenery [address] [place], [place] [address] 08/14/2023 8:30 AM EST Laboratory Laboratory Scenery [facility] [address] [place] [address] Park, Lab Scenery [address] [place] [address] 08/14/2023 9:00 AM EST Nurse Only Hematology/Oncology [facility] [place] [address] [place] [address] Park, Nurse Hem Onc Scenery [address] [place] [address] 08/15/2023 11:00 AM EST Office [facility] [address] Katy García CRNP [address] [place] [address] 08/18/2023 8:30 AM EST Laboratory Laboratory [facility] [address] [place], [place] [phone] Park, Lab Scenery [address] [place] [address] 08/18/2023 9:00 AM EST Nurse Only Hematology/Oncology [facility] [address] [place] [address] Park, Nurse Hem Onc Scenery [address] [place] [address] 08/21/2023 8:30 AM EST Laboratory Laboratory Sc[facility] [address] [place] [address] Park, Lab Scenery [address] [place] [address] 08/21/2023 9:00 AM EST Nurse Only Hematology/Oncology [facility] [address] [place] [address] Park, Nurse Hem Onc Scenery [address] [place], [place] [address] 08/25/2023 8:30 AM EST Laboratory Laboratory [facility] [address] [place] [address] Park, Lab Scenery [address] [place] [address] 08/25/2023 9:00 AM EST Nurse Only Hematology/Oncology [facility] [place] [address] [place] [address] Park, Nurse Hem Onc Scenery [address] [place] [address] 08/29/2023 9:15 AM EST Office Visit Hematology/Oncology [facility] [address] [place] [address] [place] Killian MD [address] [place] [address] 10/03/2023 10:30 AM EST Office Visit Urology, [facility] [address] [facility] [place] [address] Kd Dickens MD [address] [place] [address] 03/18/2024 11:00 AM EDT Office Visit Dermatology [facility] 200 [facility] [place] [address] Erica Rashid MD 200 [facility] [place] [address] Scheduled Referrals Name Type Priority Associated Diagnoses [...] this encounter Medical Devices Implanted Type Area Apple Turner Device Identifier Shelf Expiration Date Model / Serial / Lot Port Implant W/8f Poly Cath - [id number] Implanted:Qty : 1 on 11/23/2021 by Tae Porras DO at OR [facility] Right: Chest CR BARD : PERIPHERAL VASCULAR [id number] 09/03/2022 [id number] / / [id number] Port Implant W/8f Poly Cath - [id number] Implanted:Qty : 1 on 12/26/2022 by Fabián Del Cid, DO at OR [facility] Right: Chest CR BARD : PERIPHERAL VASCULAR [id number] 04/03/2024 [id number] / / [id number] documented as of this encounter Visit Diagnoses Diagnosis Oral ulcer- Primary Other and unspecified diseases of the oral soft tissues Acute myeloid leukemia in remission (HCC) Acute myeloid leukemia in remission documented in this encounter Advance Directives Documents on File Type Date Recorded 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 No Full Code 03/12/2022 5:18 PM 03/15/2022 7:16 PM This o rder reflects the patients wishes and were consensually agreed upon. Question Answer Comments Discussion of Advance Directives occurred with: Patient Does the patient have a Living Will? No Does the patient have Health Care Power of Hand Binder Stripper? No Full Code 12/04/2021 5:18 PM 01/22/2022 8:17 PM This o rder reflects the patients wishes and were consensually agreed upon. Question Answer Comments Discussion of Advance Directives occurred with: Patient Does the patient have a Living Will? No Does the patient have Health Care Power of Hand Binder Stripper? No Care Teams Risk Management Specialist Relationship Specialty Start Date End Date Anthony Rico III, MD [address] [place] [address] PCP - General 03/18/1996 documented as of this encounter
--- OUTSIDE RECORDS SUMMARY | 2023-06-29 11:04 | External Medical Summary | Summary of Care ---
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 documented as of this encounter (statuses as of 06/19/2023) Medications Medication Sig Dispensed Refills Start Date [...] Pain, Moderate. 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 0 09/05/2010 [...] as of this encounter (statuses as of 06/19/2023) Resolved Problems Problem Noted Date Diagnosed Date [...] as of this encounter (statuses as of 06/19/2023) Immunizations Name Administration Dates Next Due COVID-19 mRNA, LNP-s, No Pre serve, 2-Dose Series ([employer]) 06/19/2021,10/24/2020,10/03/2020 H1N1 2009 Influenza, IM 06/14/2009 Hepatitis [...] encounter Miscellaneous Notes * Telephone Encounter - Genie Garcia RN - 06/19/2023 11:40 AM ESTSigned Prescriptions: Disp Refills oxyCODONE HCl 5 MG Oral Tablet (Oxy IR) 30 Tab*0 Sig: Take 1 Tablet by mouth every 8 hours as needed for Pain, Moderate.Authorizing Provider: WINTER KILLIAN------- * Telephone Encounter - Winter Killian MD - 06/19/2023 11:40 AM EST E-prescribed oxycodone for the symptomatic treatment of tongue ulcer * Telephone Encounter - Genie Garcia RN - 06/19/2023 9:09 AM EST Pended oxycodone documented in this encounter Plan of Treatment Upcoming Encounters Date Type Department Care Team (Late st Contact Info) Description 06/23/2023 8:30 AM EST Laboratory Laboratory [facility] [place] [address] [place] [phone] [facility] [address] [place] [address] 06/23/2023 9:00 AM EST Nurse Only Hematology/Oncology Scenery [facility] [address] [place] [address] Park, Nurse Hem Onc Scenery [address] [place] [address] 06/25/2023 8:30 AM EST Laboratory Laboratory Sc[facility]ery [facility] [place] [address] [place] [address] Park, Lab Scenery [address] [place] [address] 06/25/2023 9:00 AM EST Nurse Only Hematology/Oncology [facility] [place] [address] [place] [address] Park, Nurse Hem Onc Scenery [address] [place], [place] [address] 06/30/2023 8:30 AM EST Laboratory Laboratory [facility] [place] [address] [place] [address] Park, Lab Scenery [address] [place] [address] 06/30/2023 9:00 AM EST Nurse Only Hematology/Oncology Sc[facility]ery [facility] [place] [address] [place] [address] Park, Nurse Hem Onc Scenery [address] [place] [address] 07/03/2023 8:30 AM EST Laboratory Laboratory Scenery [facility] [address] [place] [address] Park, Lab Scenery [address] [place] [address] 07/03/2023 9:00 AM EST Nurse Only Hematology/Oncology Scenery [facility] [address] [place] [address] Park, Nurse Hem Onc Scenery [address] [place] [address] 07/07/2023 8:30 AM EST Laboratory Laboratory Scenery [facility] [address] [place] [address] Park, Lab Scenery [address] [place] [address] 07/07/2023 9:00 AM EST Nurse Only Hematology/Oncology Scenery [facility] [address] [place] [address] Park, Nurse Hem Onc Scenery [address] [place] [address] 07/10/2023 8:30 AM EST Laboratory Laboratory Scenery [facility] [address] [place] [address] Park, Lab Scenery [address] [place] [address] 07/10/2023 9:00 AM EST Nurse Only Hematology/Oncology Scenery [facility] [address] [place] [address] Park, Nurse Hem Onc Scenery [address] [place] [address] 07/14/2023 8:30 AM EST Laboratory Laboratory Scenery [facility] [address] [place] [address] Park, Lab Scenery [address] [place] [address] 07/14/2023 9:00 AM EST Nurse Only Hematology/Oncology Scenery [facility] [address] [place] [address] Park, Nurse Hem Onc Scenery [address] [place] [address] 07/17/2023 8:30 AM EST Laboratory Laboratory Scenery [facility] [address] [place] [address] Park, Lab Scenery [address] [place] [address] 07/17/2023 9:00 AM EST Nurse Only Hematology/Oncology Scenery [facility] [address] [place] [address] Park, Nurse Hem Onc Scenery [address] [place] [address] 07/21/2023 8:30 AM EST Laboratory Laboratory [facility] [address] [place] [address] Park, Lab Scenery [address] [place] [address] 07/21/2023 9:00 AM EST Nurse Only Hematology/Oncology Scenery [facility] [address] [place] [address] Park, Nurse Hem Onc Scenery [address] [place] [address] 07/24/2023 8:30 AM EST Laboratory Laboratory [facility] [address] [place] [address] Park, Lab Scenery [address] [place] [address] 07/24/2023 9:00 AM EST Nurse Only Hematology/Oncology [facility] [address] [place] [address] Park, Nurse Hem Onc Scenery [address] [place] [address] 07/24/2023 9:40 AM EST Office Visit Family Practice [facility] [address] [place] [address] Jacky III, Anthony Moctezuma MD [address] [place] [address] 07/29/2023 8:30 AM EST Laboratory Laboratory Scenery [facility] [address] [place] [address] Park, Lab Scenery [address] [place] [address] 07/29/2023 9:00 AM EST Nurse Only Hematology/Oncology Scenery [facility] [address] [place] [address] Park, Nurse Hem Onc Scenery [address] [place] [address] 07/31/2023 8:30 AM EST Laboratory Laboratory Scenery [facility] [address] [place] [address] Park, Lab Scenery [address] [place] [address] 07/31/2023 9:00 AM EST Nurse Only Hematology/Oncology Scenery [facility] [address] [place] [address] Park, Nurse Hem Onc Scenery [address] [place] [address] 08/05/2023 8:30 AM EST Laboratory Laboratory Scenery [facility] [address] [place] [address] Park, Lab Scenery [address] [place] [address] 08/05/2023 9:00 AM EST Nurse Only Hematology/Oncology Scenery [facility] [address] [place] [address] Park, Nurse Hem Onc Scenery [address] [place] [address] 08/07/2023 8:30 AM EST Laboratory Laboratory Scenery [facility] [address] [place] [address] Park, Lab Scenery [address] [place] [address] 08/07/2023 9:00 AM EST Nurse Only Hematology/Oncology [facility] [address] [place] [address] Park, Nurse Hem Onc Scenery [address] [place] [address] 08/11/2023 8:30 AM EST Laboratory Laboratory [facility] [address] [place] [address] Park, Lab Scenery [address] [place] [address] 08/11/2023 9:00 AM EST Nurse Only Hematology/Oncology [facility] [address] [place] [address] Park, Nurse Hem Onc Scenery [address] [place] [address] 08/14/2023 8:30 AM EST Laboratory Laboratory [facility] [address] [place] [address] Park, Lab Scenery [address] [place] [address] 08/14/2023 9:00 AM EST Nurse Only Hematology/Oncology [facility] [address] [place] [address] Park, Nurse Hem Onc Scenery [address] [place] [address] 08/15/2023 11:00 AM EST Office Visit [facility]iology, [facility] [address] Katy García CRNP 132 [facility] [address] 08/18/2023 8:30 AM EST Laboratory Laboratory Scenery [facility] [address] [place] [address] Park, Lab Scenery [address] [place] [address] 08/18/2023 9:00 AM EST Nurse Only Hematology/Oncology Scenery [facility] [address] [place] [address] Park, Nurse Hem Onc Scenery [address] [place] [address] 08/21/2023 8:30 AM EST Laboratory Laboratory [facility] [address] [place] [address] Park, Lab Scenery [address] [place] [address] 08/21/2023 9:00 AM EST Nurse Only Hematology/Oncology Scenery [facility] [address] [place] [address] Park, Nurse Hem Onc Scenery [address] [place] [address] 08/25/2023 8:30 AM EST Laboratory Laboratory [facility] [address] [place] [address] Park, Lab Scenery [address] [place] [address] 08/25/2023 9:00 AM EST Nurse Only Hematology/Oncology [facility] [address] [place] [address] Park, Nurse Hem Onc Scenery [address] [place] [address] 08/29/2023 9:15 AM EST Office Visit Hematology/Oncology [facility] [address] [place] [address] Winter Killian MD [address] [place] [address] 10/03/2023 10:30 AM EST Office Visit Urology, [facility] [address] [address] Kd Dickens MD 27 [facility] [address] [place] [address] 03/18/2024 11:00 AM EDT Office Visit [facility] 200 [facility] [place] [address] Erica Rashid MD [address] [place] [address] Health Maintenance Due Date Last Done Comments [...] 11/02, 05/31/2022, Additional history exists Albumin/Creatinine Ratio 04/08/20242 023, 02/13/2022, 06/23/2018, Additional history exists GFR 06/16/2024 06/16/2023, 11/0 04/2023, 06/09/2023, Additional history exists COLONOSCOPY-EVERY 5 YRS AGES [...] this encounter Medical Devices Implanted Type Area Pot Puncher Device Identifier Shelf Expiration Date Model / Serial / Lot Port Implant W/8f Poly Cath - [id number] Implanted:Qty : 1 on 11/23/2021 by Tae Porras, DO at OR [facility] Right: Chest CR BARD : PERIPHERAL VASCULAR [id number] 09/03/2022 [id number] / / [id number] Port Implant W/8f Poly Cath - [id number] Implanted:Qty : 1 on 12/26/2022 by Fabián Del Cid, DO at OR [facility] Right: Chest CR BARD : PERIPHERAL VASCULAR [id number] 04/03/2024 [id number] / / [id number] documented as of this encounter Visit Diagnoses Diagnosis 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 No Full Code 03/12/2022 5:18 PM 03/15/2022 7:16 PM This o rder reflects the patients wishes and were consensually agreed upon. Question Answer Comments Discussion of Advance Directives occurred with: Patient Does the patient have a Living Will? No Does the patient have Health Care Power of Towel Hemmer? No Full Code 12/04/2021 5:18 PM 01/22/2022 8:17 PM This o rder reflects the patients wishes and were consensually agreed upon. Question Answer Comments Discussion of Advance Directives occurred with: Patient Does the patient have a Living Will? No Does the patient have Health Care Power of Towel Hemmer? No Care Teams Screening Representative Relationship Specialty Start Date End Date Anthony Rico III, MD [address] [place] [address] PCP - General 03/18/1996 documented as of this encounter
--- OUTSIDE RECORDS SUMMARY | 2023-06-29 11:04 | External Medical Summary ---
Author Name Unknown Address Unknown Organization K09:[facility] [address] [place] [address] Laboratory Report Ordering Provider Test Date Status FIORDALIZA MAX 06/23/2023 08:34:30 Final Observation Date Value Abnormality Reference (Units ) Status BUN 06/23/2023 08:34:30 15 6-20 (mg/dL) Final Creatinine 06/23/2023 08:34:30 0.99 0.6-1.2 (mg/dL) Final Glomerular filtration rate/1.73 sq M.predicted [Volume Rate/Area] in Serum, Plasma or Blood by Creatinine-based formula (CKD-EPI) 06/23/2023 08:34:30 82 >=60 (mL/min) Final eGFR is calculated based on the CKD-EPI 2020 equation SODIUM 06/23/2023 08:34:30 137 135-146 (m mol/L) Final Potassium 06/23/2023 08:34:30 4.4 3.5-5.1 (m mol/L) Final Cl 06/23/2023 08:34:30 98 98-107 (mm ol/L) Final CO2 06/23/2023 08:34:30 26 22-32 (mmo l/L) Final Anion gap 06/23/2023 08:34:30 13 7-15 (mmol /L) Final Glucose 06/23/2023 08:34:30 220 Above high normal 70 -120 (mg/dL) Final Albumin 06/23/2023 08:34:30 3.7 Below low normal 3.8 -5.0 (g/dL) Final AST (Aspartate aminotransferase) 06/23/2023 08:34:30 11 10-50 (U/L) Fin al Alk Phos 06/23/2023 08:34:30 131 Above high normal 35 -130 (U/L) Final Bilirubin, Total 06/23/2023 08:34:30 0.3 <=1 .2 (mg/dL) Final Calcium 06/23/2023 08:34:30 8.8 8.4-10.2 ( mg/dL) Final Protein 06/23/2023 08:34:30 6.5 6.0-8.3 (g /dL) Final ALT (Alanine aminotransferase) 06/23/2023 08:34:30 20 10-50 (U/L) Uvaldo sandoval Performing Location [facility] [address] [place] [address]
--- OUTSIDE RECORDS SUMMARY | 2023-06-29 11:04 | External Medical Summary ---
Author Name Unknown Address Unknown Organization K09:[facility] [place] [place] [address] Laboratory Report Ordering Provider Test Date Status FIORDALIZA MAX 06/23/2023 08:34:30 Final Observation Date Value Abnormality Reference (Units ) Status COMMENT 06/23/2023 08:34:30 WBC < 0.60, WBC differential cancelled. Please call Client Services if differential is required. Final Performing Location [facility] [place] [address]
--- OUTSIDE RECORDS SUMMARY | 2023-06-29 11:04 | External Medical Summary ---
Author Name Unknown Address Unknown Organization K09:[facility] [place] [address] Laboratory Report Ordering Provider Test Date Status FIORDALIZA MAX 06/19/2023 08:29:36 Final Observation Date Value Abnormality Reference (Units ) Status COMMENT 06/19/2023 08:29:36 WBC < 0.60, WBC differential cancelled. Please call Client Services if differential is required. Final Performing Location [place] [address]
--- OUTSIDE RECORDS SUMMARY | 2023-06-29 11:04 | External Medical Summary | Summary of Care ---
Author Name Unknown Organization [facility] Address [address] [facility] [place] [address] Phone [phone] Care Team Providers Care Heavy Threader Name Role Phone Jacky THOMAS MD, Anthony Moctezuma Primary Care Provider [phone] Reason for Visit * Reason Comments Outpatient Testing Encounter Details Date Type Department Care Team (Late st Contact Info) Description 06/19/2023 8:30 AM EST Laboratory Laboratory [facility] [place] [address] [place] [phone] [facility] Lab [facility] [address] [place] [address] AML (acute myeloid leukemia) ([facility]) Allergies Active Allergy Reactions Criticality Noted Date [...] before bedtime. 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 0 09/05/2010 [...] mRNA, LNP-s, No Pre serve, 2-Dose Series ([employer]) 06/19/2021,10/24/2020,10/03/2020 H1N1 2009 Influenza, IM 06/14/2009 Hepatitis [...] No 06/05/2022 documented as of this encounter Plan of Treatment Upcoming Encounters Date Type Department Care Team (Late st Contact Info) Description 06/19/2023 9:00 AM EST Nurse Only Hematology/Oncology [facility] [address] [place] [address] [place], Nurse Hem Onc [facility] [address] [place] [address] Arrived 07/24/2023 9:40 AM EST Office Visit Family Practice [facility] [address] [place] [address] Anthony Rico III, MD 200 [facility] [place] [address] 08/15/2023 11:00 AM EST Office Visit Cardiology, [facility] [address] [facility] [place] [address] Katy García CRNP [facility] [address] 08/29/2023 9:15 AM EST Office Visit Hematology/Oncology [facility] [address] [place] [address] [place] Killian MD 200 [facility] [place] [address] 10/03/2023 10:30 AM EST Office Visit Urology, [facility] [address] [facility] [place] [address] Kd Dickens MD [address] [place] [address] 03/18/2024 11:00 AM EDT Office Visit Dermatology [facility] [address] [place] [address] Erica Rashid MD [address] [place] [address] [place] [address] Pending Results Name Type Priority Associated Diagnoses Date /Time CBC WITH WBC DIFFERENTIAL Lab STAT AML (acute myeloid leukemia) ([facility]) 06/19/2023 8:29 AM EST CBC Lab STAT AML (acute myeloid leukemia) ([facility]) 06/19/2023 8:29 AM EST DIFFERENTIAL, AUTOMATED Lab STAT AML (acute myeloid leukemia) ([facility]) 06/19/2023 8:29 AM EST Health Maintenance Due Date Last Done Comments [...] 06/23/2018, Additional history exists GFR 06/16/2024 06/16/2023, 1104/2023, 06/09/2023, Additional history exists COLONOSCOPY-EVERY 5 YRS [...] this encounter Medical Devices Implanted Type Area Oil Dipper Device Identifier Shelf Expiration Date Model / Serial / Lot Port Implant W/8f Poly Cath - [id number] Implanted:Qty : 1 on 11/23/2021 by Tae Porras, DO at OR [facility] Right: Chest CR BARD : PERIPHERAL VASCULAR [id number] 09/03/2022 [id number] / / [id number] Port Implant W/8f Poly Cath - [id number] Implanted:Qty : 1 on 12/26/2022 by Fabián Del Cid, DO at OR [facility] Right: Chest CR BARD : PERIPHERAL VASCULAR [id number] 04/03/2024 [id number] / / [id number] documented as of this encounter Visit Diagnoses Diagnosis AML (acute myeloid leukemia) (HCC) Acute myeloid leukemia, without mention of having achieved remission documented in this encounter Advance Directives Documents on File Type Date Recorded Patient Medical And Health Services Manager Expl anation Power of Senior Corporate Accountant 06/06/2022 POWER OF A TTORNEY Latest Code [...] the patient have Health Care Power of Senior Corporate Accountant? No Full Code 03/12/2022 5:18 PM 03/15/2022 7:16 PM This o rder reflects the patients wishes and were consensually agreed upon. Question Answer Comments Discussion of Advance Directives occurred with: Patient Does the patient have a Living Will? No Does the patient have Health Care Power of Senior Corporate Accountant? No Full Code 12/04/2021 5:18 PM 01/22/2022 8:17 PM This o rder reflects the patients wishes and were consensually agreed upon. Question Answer Comments Discussion of Advance Directives occurred with: Patient Does the patient have a Living Will? No Does the patient have Health Care Power of Senior Corporate Accountant? No Care Teams Heavy Threader Relationship Specialty Start Date End Date Anthony Rico III, MD 200 [facility] [place] [address] PCP - General 03/18/1996 documented as of this encounter
--- OUTSIDE RECORDS SUMMARY | 2023-06-29 11:04 | External Medical Summary | Summary of Care ---
Author Name Unknown Organization [facility] Address [address] [facility] [address] Phone [phone] Care Team Providers Care Pump Stitcher Name Role Phone Jacky THOMAS MD, Anthony [place] Primary Care Provider [phone] Reason for Visit * Reason Comments Outpatient Testing Encounter Details Date Type Department Care Team (Late st Contact Info) Description 06/23/2023 8:30 AM EST Laboratory Laboratory [facility] [place] [address] [place] [phone] [facility] [address] [place] [address] AML (acute myeloid leukemia) ([facility]) Allergies Active Allergy Reactions Criticality Noted Date [...] below 70 01/01/2012 Anticoagulation management encounter 09/05/2010 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 use of anticoagulant therapy 0 09/05/2010 [...] mRNA, LNP-s, No Pre serve, 2-Dose Series ([employer]) 06/19/2021,10/24/2020,10/03/2020 H1N1 2009 Influenza, IM 06/14/2009 [...] Team (Late st Contact Info) Description 06/23/2023 9:00 AM EST Nurse Only Hematology/Oncology [facility] [address] [place] [address] Park, Nurse Hem Onc [place] [address] [place] [address] Arrived 06/25/2023 8:30 AM EST Laboratory Laboratory [facility] [address] [place], [place] [address] Park, Lab Scenery [address] [facility] [place], [place] [address] 06/25/2023 9:00 AM EST Nurse Only Hematology/Oncology [facility] [place] [address] [place] [address] Park, Nurse Hem Onc [place] [address] [place], [place] [address] 06/30/2023 8:30 AM EST Laboratory Laboratory [facility] [place] [address] [place], [place] [address] Park, Lab Scenery [address] [facility] [place], [place] [address] 06/30/2023 9:00 AM EST Nurse Only Hematology/Oncology [facility] [address] [place], [place] [address] Park, Nurse Hem Onc [address] [place] [address] 07/03/2023 8:30 AM EST Laboratory Laboratory [facility] [address] [place] [address] Park, Lab Scenery [address] [place] [address] 07/03/2023 9:00 AM EST Nurse Only Hematology/Oncology [facility] [address] [place] [address] Park, Nurse Hem Onc [address] [place] [address] 07/07/2023 8:30 AM EST Laboratory Laboratory [address] [address] [place] [address] Park, Lab Scenery [address] [place] [address] 07/07/2023 9:00 AM EST Nurse Only Hematology/Oncology [address] [address] [place] [address] Park, Nurse Hem Onc [place] [address] [place] [address] 07/10/2023 8:30 AM EST Laboratory Laboratory [address] [address] [place] [address] Park, Lab Scenery [address] [place] [address] 07/10/2023 9:00 AM EST Nurse Only Hematology/Oncology [facility] [address] [place] [address] Park, Nurse Hem Onc [place] [place] [address] 07/14/2023 8:30 AM EST Laboratory Laboratory [address] [address] [place] [address] Park, Lab Scenery [address] [place] [address] 07/14/2023 9:00 AM EST Nurse Only Hematology/Oncology [address] [address] [place] [address] Park, Nurse Hem Onc [address] [place] [address] 07/17/2023 8:30 AM EST Laboratory Laboratory [address] [address] [place] [address] Park, Lab Scenery [address] [place] [address] 07/17/2023 9:00 AM EST Nurse Only Hematology/Oncology [address] [address] [place] [address] Park, Nurse Hem Onc [address] [place] [address] 07/21/2023 8:30 AM EST Laboratory Laboratory [address] [facility] [address] [place] [address] Park, Lab Scenery [address] [place] [address] 07/21/2023 9:00 AM EST Nurse Only Hematology/Oncology [address] [address] [place] [address] Park, Nurse Hem Onc [address] [place] [address] 07/24/2023 8:30 AM EST Laboratory Laboratory [address] [facility] [address] [place] [address] Park, Lab Scenery [address] [place] [address] 07/24/2023 9:00 AM EST Nurse Only Hematology/Oncology [address] [address] [place] [address] Park, Nurse Hem Onc [address] [place] [address] 07/24/2023 9:40 AM EST Office Visit Family Practice [facility] [address] [place] [address] Anthony Rico III, MD [address] [place] [address] 07/29/2023 8:30 AM EST Laboratory Laboratory [facility] [address] [place] [address] Park, Lab Scenery [address] [place] [address] 07/29/2023 9:00 AM EST Nurse Only Hematology/Oncology [address] [address] [place] [address] Park, Nurse Hem Onc [address] [place] [address] 07/31/2023 8:30 AM EST Laboratory Laboratory [facility] [place] [address] [place] [address] Park, Lab Scenery [address] [place] [address] 07/31/2023 9:00 AM EST Nurse Only Hematology/Oncology [address] [place] [address] [place] [address] Park, Nurse Hem Onc [address] [place] [address] 08/05/2023 8:30 AM EST Laboratory Laboratory [address] [address] [place] [address] Park, Lab Scenery [address] [place] [address] 08/05/2023 9:00 AM EST Nurse Only Hematology/Oncology [address] [address] [place] [address] Park, Nurse Hem Onc [address] [place] [address] 08/07/2023 8:30 AM EST Laboratory Laboratory [address] [facility] [address] [place] [address] Park, Lab Scenery [address] [place] [address] 08/07/2023 9:00 AM EST Nurse Only Hematology/Oncology [address] [address] [place] [address] Park, Nurse Hem Onc [address] [place] [address] 08/11/2023 8:30 AM EST Laboratory Laboratory [facility] [address] [place] [address] Park, Lab Scenery [address] [place] [address] 08/11/2023 9:00 AM EST Nurse Only Hematology/Oncology [address] [facility] [address] [place] [address] Park, Nurse Hem Onc [address] [place] [address] 08/14/2023 8:30 AM EST Laboratory Laboratory [address] [address] [place] [address] Park, Lab Scenery [address] [place] [address] 08/14/2023 9:00 AM EST Nurse Only Hematology/Oncology [address], [place] [address] [place], [place] [address] Park, Nurse Hem Onc [address] [place], [place] [address] 08/15/2023 11:00 AM EST Office Visit Cardiology, [facility] [address] [facility] [place] [address] Katy García CRNP [address] [facility] [place] [address] 08/18/2023 8:30 AM EST Laboratory Laboratory [address] [place] [address] [place], [place] [phone] Dorothy, Lab Scenery [address] [facility] [place], [place] [address] 08/18/2023 9:00 AM EST Nurse Only Hematology/Oncology [address] [facility] [address] [place] [address] Park, Nurse Hem Onc [address] [place], [place] [address] 08/21/2023 8:30 AM EST Laboratory Laboratory [address] [place] [address] [place] [address] Park, Lab Scenery [address] [facility] [place] [address] 08/21/2023 9:00 AM EST Nurse Only Hematology/Oncology [address] [place] [address] [place] [address] Park, Nurse Hem Onc [address] [place] [address] 08/25/2023 8:30 AM EST Laboratory Laboratory [address] [facility] [address] [place] [address] Park, Lab Scenery [address] [place] [address] 08/25/2023 9:00 AM EST Nurse Only Hematology/Oncology [facility] [address] [place] [address] Park, Nurse Hem Onc [facility] 200 [facility] [place] [address] 08/29/2023 9:15 AM EST Office Visit Hematology/Oncology [facility] [place] [address] [place] [address] [place] Killian MD [address] [place] [address] 10/03/2023 10:30 AM EST Office Visit Urology, [facility] 132 [facility] [place] [address] Kd Dickens MD 27 [facility] [address] [facility] [place] [address] 03/18/2024 11:00 AM EDT Office Visit Dermatology [facility] [address] [place] [address] Erica Rashid MD [address] [place] [address] Pending Results Name Type Priority Associated Diagnoses Date /Time CBC WITH WBC DIFFERENTIAL Lab STAT AML (acute myeloid leukemia) ([facility]) 06/23/2023 8:34 AM EST COMPREHENSIVE METABOLIC PANEL Lab STAT AML (acute myeloid leukemia) ([facility]) 06/23/2023 8:34 AM EST LD Lab STAT AML (acute myeloid leukemia) ([facility]) 06/23/2023 8:34 AM EST URIC ACID Lab STAT AML (acute myeloid leukemia) ([facility]) 06/23/2023 8:34 AM EST CBC Lab STAT AML (acute myeloid leukemia) ([facility]) 06/23/2023 8:34 AM EST DIFFERENTIAL, AUTOMATED Lab STAT AML (acute myeloid leukemia) ([facility]) 06/23/2023 8:34 AM EST Health Maintenance Due Date Last [...] 06/23/2018, Additional history exists GFR 06/16/2024 06/16/2023, 04/2023, 06/09/2023, Additional history exists COLONOSCOPY-EVERY 5 [...] this encounter Medical Devices Implanted Type Area Software Intern Device Identifier Shelf Expiration Date Model / Serial / Lot Port Implant W/8f Poly Cath - [id number] Implanted:Qty : 1 on 11/23/2021 by Tae Porras, DO at OR [facility] Right: Chest CR BARD : PERIPHERAL VASCULAR [id number] 09/03/2022 [id number] / / [id number] Port Implant W/8f Poly Cath - [id number] Implanted:Qty : 1 on 12/26/2022 by Fabián Del Cid, DO at OR [facility] Right: Chest CR BARD : PERIPHERAL VASCULAR [id number] 04/03/2024 [id number] / / [id number] documented as of this encounter Visit Diagnoses Diagnosis AML (acute myeloid leukemia) (HCC) Acute myeloid leukemia, without mention of having achieved remission documented in this encounter Advance Directives Documents on File Type Date Recorded Patient Machine Packer Expl anation Power of Fill Plant Operator 06/06/2022 POWER OF A TTORNEY Latest Code [...] the patient have Health Care Power of Fill Plant Operator? No Full Code 03/12/2022 5:18 PM 03/15/2022 7:16 PM This o rder reflects the patients wishes and were consensually agreed upon. Question Answer Comments Discussion of Advance Directives occurred with: Patient Does the patient have a Living Will? No Does the patient have Health Care Power of Fill Plant Operator? No Full Code 12/04/2021 5:18 PM 01/22/2022 8:17 PM This o rder reflects the patients wishes and were consensually agreed upon. Question Answer Comments Discussion of Advance Directives occurred with: Patient Does the patient have a Living Will? No Does the patient have Health Care Power of Fill Plant Operator? No Care Teams Pump Stitcher Relationship Specialty Start Date End Date Anthony Rico III, MD 200 [facility] [place] [address] PCP - General 03/18/1996 documented as of this encounter
--- OUTSIDE RECORDS SUMMARY | 2023-06-29 11:04 | External Medical Summary ---
Author Name Unknown Address Unknown Organization K01:[facility] [place] - [address] [place] [address] Laboratory Report Ordering Provider Test Date Status FIORDALIZA MAX 06/23/2023 08:34:30 Final Observation Date Value Abnormality Reference (Units ) Status Uric Acid 06/23/2023 08:34:30 3.3 Below low normal 3.4 -7.0 (mg/dL) Final Performing Location [facility] [place] - [address] [place] [address]
--- OUTSIDE RECORDS SUMMARY | 2023-06-29 11:04 | External Medical Summary ---
Author Name Unknown Address Unknown Organization K09:[facility] [place] [address] Laboratory Report Ordering Provider Test Date Status WINTER,MANCERA 06/19/2023 08:29:36 Final Observation Date Value Abnormality Reference (Units ) Status Nucleated erythrocytes/100 leukocytes [Ratio] in Blood by Automated count 06/19/2023 08:29:36 Final Performing Location [facility] [place] [address]
--- OUTSIDE RECORDS SUMMARY | 2023-06-29 11:04 | External Medical Summary ---
Author Name Unknown Address Unknown Organization K09:[facility] [place] [address] Laboratory Report Ordering Provider Test Date Status FIORDALIZA MAX 06/19/2023 08:29:36 Final Observation Date Value Abnormality Reference (Units ) Status WBC, Total 06/19/2023 08:29:36 0.42 Below lower panic limits 4.00-10.80 (K/uL) Final RBC 06/19/2023 08:29:36 2.61 4.50-5.25 (M/uL) Final Hemoglobin 06/19/2023 08:29:36 7.7 Below low normal 14.0-16.8 (g/dL) Final HCT 06/19/2023 08:29:36 24.0 Below low normal 40.0-48.4 (%) Final MCV 06/19/2023 08:29:36 92.0 82.0-99.5 (fL) Final MCH 06/19/2023 08:29:36 29.5 27.0-34.0 (pg) Final MCHC 06/19/2023 08:29:36 32.1 32.0-36.0 (g/dL) Final RDW 06/19/2023 08:29:36 13.0 11.5-15.5 (%) Final Platelets 06/19/2023 08:29:36 <10 Below lower panic limits 140-400 (K/uL) Final MPV 06/19/2023 08:29:36 8.4 6.6-11.1 (fL) Final Performing Location [facility] [place] [address]
--- OUTSIDE RECORDS SUMMARY | 2023-06-29 11:04 | External Medical Summary ---
Author Name Unknown Address Unknown Organization K09:[facility] [place] [address] [place] [address] Laboratory Report Ordering Provider Test Date Status FIORDALIZA MAX 06/23/2023 08:34:30 Final Observation Date Value Abnormality Reference (Units ) Status Nucleated erythrocytes/100 leukocytes [Ratio] in Blood by Automated count 06/23/2023 08:34:30 Final Polychromasia [Presence] in Blood by Light microscopy 06/23/2023 08:34:30 Moderate Abnormal None Seen Final Performing Location [place] [place] [address]
--- OUTSIDE RECORDS SUMMARY | 2023-06-29 11:04 | External Medical Summary ---
Author Name Unknown Address Unknown Organization K01:[facility]ORY [facility] [place] [place] - [address] [place] [address] Laboratory Report Ordering Provider Test Date Status FIORDALIZA MAX 06/23/2023 08:34:30 Final Observation Date Value Abnormality Reference (Units ) Status LDH 06/23/2023 08:34:30 152 <=250 (U/L ) Final Performing Location [facility] - [address] [place] [address]
--- OUTSIDE RECORDS SUMMARY | 2023-06-29 11:04 | External Medical Summary ---
Author Name Unknown Address Unknown Organization K09:[facility] [place] [address] Laboratory Report Ordering Provider Test Date Status FIORDALIZA MAX 06/23/2023 08:34:30 Final Observation Date Value Abnormality Reference (Units ) Status WBC, Total 06/23/2023 08:34:30 0.35 Below lower panic limits 4.00-10.80 (K/uL) Final RBC 06/23/2023 08:34:30 2.56 4.50-5.25 (M/uL) Final Hemoglobin 06/23/2023 08:34:30 7.5 Below low normal 14.0-16.8 (g/dL) Final HCT 06/23/2023 08:34:30 23.3 Below low normal 40.0-48.4 (%) Final MCV 06/23/2023 08:34:30 91.0 82.0-99.5 (fL) Final MCH 06/23/2023 08:34:30 29.3 27.0-34.0 (pg) Final MCHC 06/23/2023 08:34:30 32.2 32.0-36.0 (g/dL) Final RDW 06/23/2023 08:34:30 12.6 11.5-15.5 (%) Final Platelets 06/23/2023 08:34:30 <10 Below lower panic limits 140-400 (K/uL) Final MPV 06/23/2023 08:34:30 9.3 6.6-11.1 (fL) Final Performing Location [facility] [place] [address]
--- OUTSIDE RECORDS SUMMARY | 2023-06-29 11:04 | External Medical Summary | Summary of Care ---
Author Name Unknown Organization [facility] Address [address] [facility] [address] Phone [phone] Care Team Providers Care Spooler Name Role Phone Jacky THOMAS MD, Anthony Moctezuma Primary Care Provider [phone] Encounter Details Date Type Department Care Team (Late st Contact Info) Description 06/19/2023 9:00 AM EST Nurse Only Hematology/Oncology Scenery [facility] [place] [address] [place] [address] Park, Nurse Hem Onc Scenery [address] [place] [address] Arrived Allergies Active Allergy Reactions Criticality Noted Date [...] before bedtime. 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 Patient to receive 1 unit platelets. Called [facility] blood bank (Marleen). They have platelets available. Called [facility] (Josey). Patient scheduled for today as soon as he can get over there. Patient verbalized understanding of appt time. [facility]ed order to [facility] blood [facility]. Patient to return Friday. Dexamethasone mouth rinse and oxycodone sent to pharmacy for sore on tongue per conversation with Dr Killian. documented in this encounter Plan of Treatment Upcoming Encounters Date Type Department Care Team (Late st Contact Info) Description 06/23/2023 8:30 AM EST Laboratory Laboratory [facility] [place] [address] [place], [place] [phone] Dorothy Lab [facility] [address] [place], [place] [address] 06/23/2023 9:00 AM EST Nurse Only Hematology/Oncology [facility] [place] [address] [place], [place] [address] Dorothy, Nurse Hem Onc [facility] [address] [place], [place] [address] 06/25/2023 8:30 AM EST Laboratory Laboratory [facility] [place] [address] [place], [place] [address] Dorothy Lab [facility] [address] [place], [place] [address] 06/25/2023 9:00 AM EST Nurse Only Hematology/Oncology Scenery [facility] [address] [place] [address] Park, Nurse Hem Onc Scenery [address] [place] [address] 06/30/2023 8:30 AM EST Laboratory Laboratory Scenery [facility] [address] [place] [address] Park, Lab Scenery [address] [place] [address] 06/30/2023 9:00 AM EST Nurse Only Hematology/Oncology Scenery [facility] [address] [place] [address] Park, Nurse Hem Onc Scenery [address] [place] [address] 07/03/2023 8:30 AM EST Laboratory Laboratory Scenery [facility] [address] [place] [address] Park, Lab Scenery [address] [place] [address] 07/03/2023 9:00 AM EST Nurse Only Hematology/Oncology Scenery [facility] [place] [address] [place] [address] Park, Nurse Hem Onc Scenery [address] [place] [address] 07/07/2023 8:30 AM EST Laboratory Laboratory Scenery [facility] [address] [place] [address] Park, Lab Scenery [address] [place] [address] 07/07/2023 9:00 AM EST Nurse Only Hematology/Oncology Scenery [facility] [address] [place] [address] Park, Nurse Hem Onc Scenery [address] [place] [address] 07/10/2023 8:30 AM EST Laboratory Laboratory Scenery [facility] [address] [place] [address] Park, Lab Scenery [address] [place] [address] 07/10/2023 9:00 AM EST Nurse Only Hematology/Oncology Scenery [facility] [address] [place] [address] Park, Nurse Hem Onc Scenery [address] [place] [address] 07/14/2023 8:30 AM EST [facility] [address] [place] [address] Park, Lab Scenery [address] [place] [address] 07/14/2023 9:00 AM EST Nurse Only Hematology/Oncology Scenery [facility] [address] [place] [address] Park, Nurse Hem Onc Scenery [address] [place] [address] 07/17/2023 8:30 AM EST Laboratory Laboratory Scenery [facility] [address] [place] [address] Park, Lab Scenery [address] [place] [address] 07/17/2023 9:00 AM EST Nurse Only Hematology/Oncology Scenery [facility] [address] [place] [address] Park, Nurse Hem Onc Scenery [address] [place] [address] 07/21/2023 8:30 AM EST Laboratory Laboratory Scenery [facility] [address] [place] [address] Park, Lab Scenery [address] [place] [address] 07/21/2023 9:00 AM EST Nurse Only Hematology/Oncology Scenery [facility] [address] [place] [address] Park, Nurse Hem Onc Scenery [address] [place] [address] 07/24/2023 8:30 AM EST Laboratory Laboratory Scenery [facility] [address] [place] [address] Park, Lab Scenery [address] [place] [address] 07/24/2023 9:00 AM EST Nurse Only Hematology/Oncology Scenery [facility] [address] [place] [address] Stickney, Nurse Hem Onc Scenery [address] [place] [address] 07/24/2023 9:40 AM EST Office Visit Family Practice [facility] [place] [address] [place] [address] FergusAnthony avila III, MD [address] [place] [address] 07/29/2023 8:30 AM EST Laboratory Laboratory [facility] [address] [place] [address] Park, Lab Scenery [address] [place] [address] 07/29/2023 9:00 AM EST Nurse Only Hematology/Oncology Scenery [facility] [address] [place] [address] Park, Nurse Hem Onc Scenery [address] [place] [address] 07/31/2023 8:30 AM EST Laboratory Laboratory Scenery [facility] [address] [place] [address] Park, Lab Scenery [address] [place] [address] 07/31/2023 9:00 AM EST Nurse Only Hematology/Oncology Scenery [facility] [address] [place] [address] Park, Nurse Hem Onc Scenery [address] [place] [address] 08/05/2023 8:30 AM EST Laboratory Laboratory Scenery [facility] [address] [place] [address] Park, Lab Scenery [address] [place] [address] 08/05/2023 9:00 AM EST Nurse Only Hematology/Oncology Scenery [facility] [address] [place] [address] Park, Nurse Hem Onc Scenery [address] [place] [address] 08/07/2023 8:30 AM EST Laboratory Laboratory Scenery [facility] [address] [place] [address] Park, Lab Scenery [address] [place] [address] 08/07/2023 9:00 AM EST Nurse Only Hematology/Oncology Scenery [facility] [address] [place] [address] Park, Nurse Hem Onc Scenery [address] [place] [address] 08/11/2023 8:30 AM EST Laboratory Laboratory Scenery [facility] [address] [place] [address] Park, Lab Scenery [address] [place] [address] 08/11/2023 9:00 AM EST Nurse Only [facility]ology[facility] [place] [address] [place], [place] [address] Park, Nurse Hem Onc Scenery [address] [place], [place] [address] 08/14/2023 8:30 AM EST Laboratory Laboratory Scenery [place] [address] [place], [place] [address] Park, Lab Scenery [address] [place], [place] [address] 08/14/2023 9:00 AM EST Nurse Only Hematology/Oncology [facility] [place] [address] [place], [place] [address] Park, Nurse Hem Onc Scenery [address] [place] [address] 08/15/2023 11:00 AM EST Office Visit Cardiology, [facility] [address] [place] [address] Katy García CRNP [address] [place] [address] 08/29/2023 9:15 AM EST Office Visit Hematology/Oncology [facility] [address] [place], [place] [address] [place] Killian MD [address] [place], [place] [address] 10/03/2023 10:30 AM EST Office Visit Urology, [facility] [address] [place] [address] Kd Dickens MD 27 [facility] [address] [place] [address] 03/18/2024 11:00 AM EDT Office Visit Dermatology [facility] [address] [place] [address] Erica Rashid MD [address] [place] [address] Health Maintenance Due Date Last Done Comments [...] this encounter Medical Devices Implanted Type Area Swage Tender Device Identifier Shelf Expiration Date Model / Serial / Lot Port Implant W/8f Poly Cath - [id number] Implanted:Qty : 1 on 11/23/2021 by Tae Porras, DO at OR [facility] Right: Chest CR BARD : PERIPHERAL VASCULAR [id number] 09/03/2022 [id number] / / [id number] Port Implant W/8f Poly Cath - [id number] Implanted:Qty : 1 on 12/26/2022 by Fabián Del Cid, DO at OR [facility] Right: Chest CR BARD : PERIPHERAL VASCULAR [id number] 04/03/2024 [id number] / / [id number] documented as of this encounter Visit Diagnoses Diagnosis 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 No Full Code 03/12/2022 5:18 PM 03/15/2022 7:16 PM This o rder reflects the patients wishes and were consensually agreed upon. Question Answer Comments Discussion of Advance Directives occurred with: Patient Does the patient have a Living Will? No Does the patient have Health Care Power of Ground Wood Supervisor? No Full Code 12/04/2021 5:18 PM 01/22/2022 8:17 PM This o rder reflects the patients wishes and were consensually agreed upon. Question Answer Comments Discussion of Advance Directives occurred with: Patient Does the patient have a Living Will? No Does the patient have Health Care Power of Ground Wood Supervisor? No Care Teams Spooler Relationship Specialty Start Date End Date Anthony Rico III, MD 200 [place] [address] PCP - General 03/18/1996 documented as of this encounter
--- OUTSIDE RECORDS SUMMARY | 2023-06-29 11:04 | External Medical Summary | Summary of Care ---
Author Name Unknown Organization [facility] Address [address] [facility] [place] [address] Phone [phone] Care Team Providers Care Sample Taker Operator Name Role Phone Jacky THOMAS MD, Anthony Moctezuma Primary Care Provider [phone] Encounter Details Date Type Department Care Team (Late st Contact Info) Description 06/23/2023 9:00 AM EST Nurse Only Hematology/Oncology Scenery [facility] [place] [address] [place] [address] Park, Nurse Hem Onc Scenery [address] [place] [address] Arrived Allergies Active Allergy Reactions Criticality Noted [...] below 70 01/01/2012 Anticoagulation management encounter 09/05/2010 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 Will arrange for 1 unit PRBC Monday 06/25, patient will need platelets again that day if plt <20 due to long weekend. Called [facility] blood bank (Tommie). They will arrange for produces. Called [facility] (Hazel). Patient scheduled for today at 1pm. They will draw T&S today for transfusion Friday. Patient scheduled for Friday at 8am for PRBC- they will draw CBCd and also give plt if plt <20 that day. [facility] will contact central scheduling. Patient verbalized understanding of appt time. Faxed order to [facility] blood [facility]. documented in this encounter Plan of Treatment Upcoming Encounters Date Type Department Care Team (Late st Contact Info) Description 06/30/2023 8:30 AM EST Laboratory Laboratory [facility] [place] [address] [place] [address] Dorothy, Lab Scenery [address] [facility] [place] [address] 06/30/2023 9:00 AM EST Nurse Only Hematology/Oncology [facility] [place] [address] [place] [address] Park, Nurse Hem Onc Scene [address] [place] [address] 07/03/2023 8:30 AM EST Laboratory Laboratory Scenery [facility] [address] [place] [address] Park, Lab Scenery [address] [place] [address] 07/03/2023 9:00 AM EST Nurse Only Hematology/Oncology [facility]enery [facility] [address] [place] [address] Park, Nurse Hem Onc Scenery [address] [place] [address] 07/07/2023 8:30 AM EST Laboratory Laboratory [facility]enery [facility] [address] [place] [address] Park, Lab Scenery [address] [place] [address] 07/07/2023 9:00 AM EST Nurse Only Hematology/Oncology [facility]enery [facility] [address] [place] [address] Park, Nurse Hem Onc Scenery [address] [place] [address] 07/10/2023 8:30 AM EST Laboratory Laboratory [facility]enery [facility] [address] [place] [address] Park, Lab Scenery [address] [place] [address] 07/10/2023 9:00 AM EST Nurse Only Hematology/Oncology [facility]enery [facility] [address] [place] [address] Park, Nurse Hem Onc Scenery [address] [place] [address] 07/14/2023 8:30 AM EST Laboratory Laboratory [facility]enery [facility] [address] [place] [address] Park, Lab Scenery [address] [place] [address] 07/14/2023 9:00 AM EST Nurse Only Hematology/Oncology [facility]ery [facility] [address] [place] [address] Park, Nurse Hem Onc Scenery [address] [place] [address] 07/17/2023 8:30 AM EST Laboratory Laboratory [facility]ery [facility] [address] [place] [address] Park, Lab Scenery [address] [place] [address] 07/17/2023 9:00 AM EST Nurse Only Hematology/Oncology [facility] [address] [place] [address] Park, Nurse Hem Onc Scenery [address] [place] [address] 07/21/2023 8:30 AM EST Laboratory Laboratory [facility]enery [facility] [address] [place] [address] Park, Lab Scenery [address] [place] [address] 07/21/2023 9:00 AM EST Nurse Only Hematology/Oncology [facility]ery [facility] [address] [place] [address] Park, Nurse Hem Onc Scenery [address] [place] [address] 07/24/2023 8:30 AM EST Laboratory Laboratory [facility]enery [facility] [address] [place] [address] Park, Lab Scenery [address] [place] [address] 07/24/2023 9:00 AM EST Nurse Only Hematology/Oncology [facility]ery [facility] [address] [place] [address] Park, Nurse Hem Onc Scenery [address] [place] [address] 07/24/2023 9:40 AM EST Office Visit Family Practice [facility] [address] [place] [address] Desoto III, Anthony Moctezuma MD [address] [place] [address] 07/29/2023 8:30 AM EST Laboratory Laboratory [facility] [address] [place] [address] Park, Lab Scenery [address] [place] [address] 07/29/2023 9:00 AM EST Nurse Only Hematology/Oncology [facility] [address] [place] [address] Park, Nurse Hem Onc Scenery [address] [place] [address] 07/31/2023 8:30 AM EST Laboratory Laboratory [facility] [place] [address] [place] [address] Park, Lab Scenery [address] [place] [address] 07/31/2023 9:00 AM EST Nurse Only Hematology/Oncology [facility] [address] [place] [address] Park, Nurse Hem Onc Scenery [address] [place] [address] 08/05/2023 8:30 AM EST Laboratory Laboratory [facility]enery [facility] [address] [place] [address] Park, Lab Scenery [address] [place] [address] 08/05/2023 9:00 AM EST Nurse Only Hematology/Oncology [facility] [address] [place] [address] Park, Nurse Hem Onc Scenery [address] [place] [address] 08/07/2023 8:30 AM EST Laboratory Laboratory [facility]enery [facility] [address] [place] [address] Park, Lab Scenery [address] [place] [address] 08/07/2023 9:00 AM EST Nurse Only Hematology/Oncology [facility]ery [facility] [address] [place] [address] Park, Nurse Hem Onc Scenery [address] [place] [address] 08/11/2023 8:30 AM EST Laboratory Laboratory [facility]enery [facility] [address] [place] [address] Park, Lab Scenery [address] [place] [address] 08/11/2023 9:00 AM EST Nurse Only Hematology/Oncology Scenery [facility] [place] [address] [place] [address] Park, Nurse Hem Onc Scenery [address] [place] [address] 08/14/2023 8:30 AM EST Laboratory Laboratory [facility]enery [facility] [address] [place] [address] Park, Lab Scenery [address] [place] [address] 08/14/2023 9:00 AM EST Nurse Only Hematology/Oncology [facility]enery [facility] [address] [place] [address] Park, Nurse Hem Onc Scenery [address] [place] [address] 08/15/2023 11:00 AM EST Office Visit [facility], [facility] [address] [facility] [address] Katy García CRNP [facility] [address] 08/18/2023 8:30 AM EST Laboratory Laboratory [facility]enery [facility] [address] [place] [address] Park, Lab Scenery [address] [place], [place] [address] 08/18/2023 9:00 AM EST Nurse Only Hematology/Oncology [facility] [address] [place], [place] [address] Park, Nurse Hem Onc Scenery [address] [place] [address] 08/21/2023 8:30 AM EST Laboratory Laboratory [facility] [place] [address] [place] [address] Park, Lab Scenery [address] [place] [address] 08/21/2023 9:00 AM EST Nurse Only Hematology/Oncology [facility] [place] [address] [place] [address] Park, Nurse Hem Onc Scenery [address] [place] [address] 08/25/2023 8:30 AM EST Laboratory Laboratory Scenery [facility] [address] [place] [address] Dorothy, Lab Scenery [address] [place] [address] 08/25/2023 9:00 AM EST Nurse Only Hematology/Oncology [facility] [address] [place], [place] [address] Park, Nurse Hem Onc [facility] 200 [facility] [place] [address] 08/29/2023 9:15 AM EST Office Visit Hematology/Oncology [facility] [address] [place] [address] [place] Killian MD 200 [facility] [place] [address] 10/03/2023 10:30 AM EST Office Visit Urology, [facility] [address] [place] [address] Kd Dickens MD 27 [facility] [address] [place] [address] 03/18/2024 11:00 AM EDT Office Visit Dermatology [facility] [address] [place] [address] Erica Rashid MD 200 [facility] [place] [address] Scheduled Orders Name Type Priority Associated Diagnoses Orde r Schedule TYPE AND SCREEN Lab Routine Acute myeloid leukemia in remission (HCC) Anemia Expected: 06/23/2023, Expires: 07/23/2024 CBC WITH WBC DIFFERENTIAL Lab STAT Acute myeloid leukemia in remission (HCC) Anemia Expected: 06/25/2023, Expires: 06/23/2024 Health Maintenance Due Date Last Done Comments [...] this encounter Medical Devices Implanted Type Area Analytics Consultant Device Identifier Shelf Expiration Date Model / Serial / Lot Port Implant W/8f Poly Cath - [id number] Implanted:Qty : 1 on 11/23/2021 by Tae Porras, at OR [facility] Right: Chest CR BARD : PERIPHERAL VASCULAR [id number] 09/03/2022 [id number] / / [id number] Port Implant W/8f Poly Cath - [id number] Implanted:Qty : 1 on 12/26/2022 by Fabián Del Cid, at OR [facility] Right: Chest CR BARD : PERIPHERAL VASCULAR [id number] 04/03/2024 [id number] / / [id number] documented as of this encounter Visit Diagnoses Diagnosis Acute myeloid leukemia in remission (HCC)- Primary Acute myeloid leukemia in remission Anemia Anemia, unspecified documented in this encounter Advance Directives Documents on File Type Date Recorded Patient Zinc Etcher Expl anation Power of Customer Contact Sales Associate 06/06/2022 POWER OF A TTORNEY Latest Code [...] the patient have Health Care Power of Customer Contact Sales Associate? No Full Code 03/12/2022 5:18 PM 03/15/2022 7:16 PM This o rder reflects the patients wishes and were consensually agreed upon. Question Answer Comments Discussion of Advance Directives occurred with: Patient Does the patient have a Living Will? No Does the patient have Health Care Power of Customer Contact Sales Associate? No Full Code 12/04/2021 5:18 PM 01/22/2022 8:17 PM This o rder reflects the patients wishes and were consensually agreed upon. Question Answer Comments Discussion of Advance Directives occurred with: Patient Does the patient have a Living Will? No Does the patient have Health Care Power of Customer Contact Sales Associate? No Care Teams Sample Taker Operator Relationship Specialty Start Date End Date Anthony Rico III, MD 200 [facility] [place] [address] PCP - General 03/18/1996 documented as of this encounter
--- OUTSIDE RECORDS SUMMARY | 2023-06-29 11:04 | External Medical Summary | Summary of Care ---
Author Name Unknown Organization [facility] Address [address] [place] [address] Phone [phone] Care Team Providers Care Anthropology Department Chair Name Role Phone Jacky THOMAS MD, Anthony Moctezuma Primary Care Provider [phone] Reason for Referral * Evaluate & Treat - Unlimited Visits (Within 3 days (urgent)) - Pending Review Specialty Diagnoses / Procedures Referred By Gurmeet schreiber Referred To Contact Otolaryngology Diagnoses Oral ulcer Acute myeloid leukemia in remission (HCC) [place] Killian MD 200 [facility] [place] [address] Referral ID Status Reason Start Date Expiration Date Visits Requested Visits Authorized [id number] Pending Review Specialty Services Required 3 999 [...] Encounter Details Date Type Department Care Team ([facility] st Contact Info) Description 06/23/2023 Telephone Hematology/Oncology Treatment, [place] [address] [place] [address] [place] Killian MD 200 [facility], [place] [address] Referral (ENT) Allergies Active Allergy Reactions Criticality [...] 06/30/2023 8:30 AM EST Laboratory Laboratory Sc[facility]ery [facility] [address] [place] [phone] [place], Lab Scenery [address] [place], [place] [address] 06/30/2023 9:00 AM EST Nurse Only Hematology/Oncology Scenery [place] [address] [place], [place] [address] Park, Nurse Hem Onc Scenery [address] [place], [place] [address] 07/03/2023 8:30 AM EST Laboratory Laboratory Scenery [place] [address] [place], [place] [phone] Park, Lab Scenery [address] [place] [address] 07/03/2023 9:00 AM EST Nurse Only Hematology/Oncology Scenery [place] [address] [place], [place] [address] Park, Nurse Hem Onc Scenery [address] [place], [place] [address] 07/07/2023 8:30 AM EST Laboratory Laboratory Scenery [place], [place] [address] [place] [phone] Park, Lab Scenery [address] [place] [address] 07/07/2023 9:00 AM EST Nurse Only Hematology/Oncology Scenery [facility] [address] [place] [address] Park, Nurse Hem Onc Scenery [address] [place] [address] 07/10/2023 8:30 AM EST Laboratory Laboratory Scenery [facility] [address] [place] [phone] [place], Lab Scenery [address] [place] [address] 07/10/2023 9:00 AM EST Nurse Only Hematology/Oncology Scenery [facility] [address] [place] [address] Park, Nurse Hem Onc Scenery [address] [place] [address] 07/14/2023 8:30 AM EST Laboratory Laboratory Scenery [facility] [address] [place] [address] Park, Lab Scenery [address] [place] [address] 07/14/2023 9:00 AM EST Nurse Only Hematology/Oncology Scenery [facility] [address] [place] [address] Park, Nurse Hem Onc Scenery [address] [place] [address] 07/17/2023 8:30 AM EST Laboratory Laboratory Scenery [facility] [address] [place] [address] Park, Lab Scenery [address] [place] [address] 07/17/2023 9:00 AM EST Nurse Only Hematology/Oncology Scenery [place] [address] [place] [address] Park, Nurse Hem Onc Scenery [address] [place], [place] [address] 07/21/2023 8:30 AM EST Laboratory Laboratory Scenery [place] [address] [place] [address] Park, Lab Scenery [address] [place] [address] 07/21/2023 9:00 AM EST Nurse Only Hematology/Oncology [facility] [place] [address] [place], [place] [address] Park, Nurse Hem Onc Scenery [address] [place], [place] [address] 07/24/2023 8:30 AM EST Laboratory Laboratory [facility] [place] [address] [place] [phone] Park, Lab Scenery [address] [facility] [place] [address] 07/24/2023 9:00 AM EST Nurse Only Hematology/Oncology [facility] [place] [address] [place] [address] Park, Nurse Hem Onc Scenery [address] [place] [address] 07/24/2023 9:40 AM EST Office Visit Family Practice [facility] [place] [address] [place] [address] Paulding III, Anthony Moctezuma MD [address] [place] [address] 07/29/2023 8:30 AM EST Laboratory Laboratory [facility] [address] [place] [phone] Park, Lab Scenery [address] [place] [address] 07/29/2023 9:00 AM EST Nurse Only Hematology/Oncology Scenery [facility] [address] [place] [address] Park, Nurse Hem Onc Scenery [address] [place] [address] 07/31/2023 8:30 AM EST Laboratory Laboratory Scenery [facility] [address] [place] [address] Park, Lab Scenery [address] [place] [address] 07/31/2023 9:00 AM EST Nurse Only Hematology/Oncology Scenery [facility] [address] [place] [address] Park, Nurse Hem Onc Scenery [address] [place] [address] 08/05/2023 8:30 AM EST Laboratory Laboratory Scenery [facility] [address] [place] [address] Park, Lab Scenery [address] [place] [address] 08/05/2023 9:00 AM EST Nurse Only Hematology/Oncology Scen[facility] [address] [place] [address] Park, Nurse Hem Onc Scenery [address] [place] [address] 08/07/2023 8:30 AM EST Laboratory Laboratory Scenery [facility] [address] [place] [address] Park, Lab Scenery [address] [place] [address] 08/07/2023 9:00 AM EST Nurse Only Hematology/Oncology Scenery [facility] [address] [place] [address] Park, Nurse Hem Onc Scenery [address] [place] [address] 08/11/2023 8:30 AM EST Laboratory Laboratory [facility] [address] [place] [address] Park, Lab Scenery [address] [place] [address] 08/11/2023 9:00 AM EST Nurse Only Hematology/Oncology Scenery [facility] [address] [place] [address] Park, Nurse Hem Onc Scenery [address] [place], [place] [address] 08/14/2023 8:30 AM EST Laboratory Laboratory Scenery [facility] [address] [place] [address] Park, Lab Scenery [address] [place] [address] 08/14/2023 9:00 AM EST Nurse Only Hematology/Oncology [facility] [place] [address] [place] [address] Park, Nurse Hem Onc Scenery [address] [place] [address] 08/15/2023 11:00 AM EST Office Visit [facility]iology, [facility] [address] Katy García CRNP [address] [place] [address] 08/18/2023 8:30 AM EST Laboratory Laboratory [facility] [address] [place], [place] [phone] Park, Lab Scenery [address] [place] [address] 08/18/2023 9:00 AM EST Nurse Only Hematology/Oncology Scenery [facility] [address] [place] [address] Park, Nurse Hem Onc Scenery [address] [place] [address] 08/21/2023 8:30 AM EST Laboratory Laboratory Scenery [facility] [address] [place] [address] Park, Lab Scenery [address] [place] [address] 08/21/2023 9:00 AM EST Nurse Only Hematology/Oncology Scenery [facility] [address] [place] [address] Park, Nurse Hem Onc Scenery [address] [place], [place] [address] 08/25/2023 8:30 AM EST Laboratory Laboratory [facility] [address] [place] [address] Park, Lab Scenery [address] [place] [address] 08/25/2023 9:00 AM EST Nurse Only Hematology/Oncology [facility] [place] [address] [place] [address] Park, Nurse Hem Onc Scenery [address] [place] [address] 08/29/2023 9:15 AM EST Office Visit Hematology/Oncology [facility] [address] [place] [address] [place] Killian MD [address] [place] [address] 10/03/2023 10:30 AM EST Office Visit Urology, [facility] [address] [facility] [place] [address] Kd Dickens MD 27 [facility] [address] [place] [address] 03/18/2024 11:00 AM EDT Office Visit Dermatology [facility] 200 [facility] [place] [address] Erica Rashid MD 200 [facility] [place] [address] Scheduled Referrals Name Type Priority Associated Diagnoses [...] this encounter Medical Devices Implanted Type Area Instructor Bus Trolley [employer] Device Identifier Shelf Expiration Date Model / Serial / Lot Port Implant W/8f Poly Cath - [id number] Implanted:Qty : 1 on 11/23/2021 by Tae Porras DO at OR [facility] Right: Chest CR BARD : PERIPHERAL VASCULAR [id number] 09/03/2022 [id number] / / [id number] Port Implant W/8f Poly Cath - [id number] Implanted:Qty : 1 on 12/26/2022 by Fabián Del Cid, DO at OR [facility] Right: Chest CR BARD : PERIPHERAL VASCULAR [id number] 04/03/2024 [id number] / / [id number] documented as of this encounter Visit Diagnoses Diagnosis Oral ulcer- Primary Other and unspecified diseases of the oral soft tissues Acute myeloid leukemia in remission (HCC) Acute myeloid leukemia in remission documented in this encounter Advance Directives Documents on File Type Date Recorded 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 No Full Code 03/12/2022 5:18 PM 03/15/2022 7:16 PM This o rder reflects the patients wishes and were consensually agreed upon. Question Answer Comments Discussion of Advance Directives occurred with: Patient Does the patient have a Living Will? No Does the patient have Health Care Power of Hat Presser? No Full Code 12/04/2021 5:18 PM 01/22/2022 8:17 PM This o rder reflects the patients wishes and were consensually agreed upon. Question Answer Comments Discussion of Advance Directives occurred with: Patient Does the patient have a Living Will? No Does the patient have Health Care Power of Hat Presser? No Care Teams Anthropology Department Chair Relationship Specialty Start Date End Date Anthony Rico III, MD [address] [place] [address] PCP - General 03/18/1996 documented as of this encounter
--- OUTSIDE RECORDS SUMMARY | 2023-06-29 11:05 | External Medical Summary ---
Author Name Unknown Address Unknown Organization [id number]:LAB[facility]ATORY [facility] - [address] [place] [address] Laboratory Report Ordering Provider Test Date Status FIORDALIZA MAX 06/16/2023 08:34:32 Final Observation Date Value Abnormality Reference (Units ) Status Uric Acid 06/16/2023 08:34:32 3.6 3.4-7.0 (m g/dL) Final Performing Location LABORATORY C - [address] [place] [address]
--- OUTSIDE RECORDS SUMMARY | 2023-06-29 11:05 | External Medical Summary | Summary of Care ---
Author Name Unknown Organization [facility] Address [address] [facility] [address] Phone [phone] Care Team Providers Care Stamp Presser Name Role Phone Jacky THOMAS MD, Anthony Moctezuma Primary Care Provider [phone] Encounter Details Date Type Department Care Team (Late st Contact Info) Description 06/16/2023 9:00 AM EST Nurse Only Hematology/Oncology [facility] [address] [facility] [place] [address] Park, Nurse Hem Onc [facility] [address] [place] [address] Arrived Allergies Active Allergy Reactions Criticality Noted Date Comments Bee Venom Low 10/07/2018 Other reaction(s): SWELLING Nitrofurantoin Monohyd Macro Other (Please comment) 02/14/2014 "Flu-like symptoms, Headache, Fever, Red dots on skin-on legs mainly" Happened during end of 10 day course. 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 Patient to receive 1 unit PRBC, 1 unit plt. Called [facility] blood bank ([place]leen). They have products available. Called [facility] ([place]azel). Patient scheduled for today at noon. She will have central scheduling add patient on. Patient verbalized understanding of appt time. Will go for T&S now. Faxed order to [facility]/ blood bank. documented in this encounter Plan of Treatment Upcoming Encounters Date Type Department Care Team (Late st Contact Info) Description 06/19/2023 8:30 AM EST Laboratory Laboratory [facility] 200 [facility] [place] [phone] [facility] [address] [place] [address] 06/19/2023 9:00 AM EST Nurse Only Hematology/Oncology [facility] [place] 200 [facility] [place] [address] [place], Nurse Hem Onc [address] [place] [address] 07/24/2023 9:40 AM EST Office Visit Family Practice [facility] [place] [address] [place] [address] JackyAnthony avila III, MD 200 [facility] [place] [address] 08/15/2023 11:00 AM EST Office Visit [facility] [place] [address] Katy García CRNP 132 [facility] [place] [address] 08/29/2023 9:15 AM EST Office Visit Hematology/Oncology [facility] [address] [place], [place] [address] [place] Killian MD 200 [facility] [place] [address] 10/03/2023 10:30 AM EST Office Visit Urology, [facility] 132 [facility] [place] [address] Kd Dickens MD 27 [facility] [place] [address] [facility] [address] 03/18/2024 11:00 AM EDT Office Visit Dermatology [facility] [address] [place] [address] Erica Rashid MD 200 [facility] [place] [address] Scheduled Orders Name Type Priority Associated Diagnoses Orde r Schedule TYPE AND SCREEN Lab Routine Anemia Acute myeloid leukemia in remission (HCC) Expected: 06/16/2023, Expires: 07/16/2024 Health Maintenance Due Date Last Done Comments Diabetic Eye Exam 09/14/2019 09/14/2018, , 07/07/2017, Additional history exists DTaP,Tdap,and Td Vaccines (2 - Td or Tdap) 04/09/2021 04/09/2011 COVID-19 Vaccine ( - 2022-24 season) 2023 06/19/2021, 10/24/2020, 10/03/2020 Influenza Vaccine [...] this encounter Medical Devices Implanted Type Area Wood Carving Lathe Operator Device Identifier Shelf Expiration Date Model / Serial / Lot Port Implant W/8f Poly Cath - [id number] Implanted:Qty : 1 on 11/23/2021 by Tae Porras, DO at OR [facility] Right: Chest CR BARD : PERIPHERAL VASCULAR [id number] 09/03/2022 [id number] / / [id number] Port Implant W/8f Poly Cath - [id number] Implanted:Qty : 1 on 12/26/2022 by Fabián Del Cid, DO at OR [facility] Right: Chest CR BARD : PERIPHERAL VASCULAR [id number] 04/03/2024 [id number] / / [id number] documented as of this encounter Visit Diagnoses Diagnosis Anemia- Primary Anemia, unspecified Acute myeloid leukemia in remission (HCC) Acute myeloid leukemia in remission documented in this encounter Advance Directives Documents on File Type Date Recorded Patient Position Classification Specialist Expl anation Power of Full Charge Bookkeeper 06/06/2022 POWER OF A TTORNEY Latest Code [...] the patient have Health Care Power of Full Charge Bookkeeper? No Full Code 03/12/2022 5:18 PM 03/15/2022 7:16 PM This o rder reflects the patients wishes and were consensually agreed upon. Question Answer Comments Discussion of Advance Directives occurred with: Patient Does the patient have a Living Will? No Does the patient have Health Care Power of Full Charge Bookkeeper? No Full Code 12/04/2021 5:18 PM 01/22/2022 8:17 PM This o rder reflects the patients wishes and were consensually agreed upon. Question Answer Comments Discussion of Advance Directives occurred with: Patient Does the patient have a Living Will? No Does the patient have Health Care Power of Full Charge Bookkeeper? No Care Teams Stamp Presser Relationship Specialty Start Date End Date Anthony Rico III, MD [address] [place] [address] PCP - General 03/18/1996 documented as of this encounter
--- OUTSIDE RECORDS SUMMARY | 2023-06-29 11:05 | External Medical Summary ---
Author Name Unknown Address Unknown Organization K01:LABORATORY [facility] - [address] [place] [address] Laboratory Report Ordering Provider Test Date Status FIORDALIZA MAX 06/16/2023 08:34:32 Final Observation Date Value Abnormality Reference (Units ) Status LDH 06/16/2023 08:34:32 144 <=250 (U/L ) Final Performing Location LABORATORY [facility] - [address] [place] [address]
[2023-06-29] MEDS ORDERED: SODIUM CHLORIDE 0.9% 1,000 ML IV SCH (11:30)
[2023-06-29 11:55] LABS: Albumin Level 3.2 gm/dl (3.4-5.0); BUN Creatinine Ratio 18.6 (10-20); Bilirubin Direct 0.1 mg/dl (0-0.2); Bilirubin,Total 0.5 mg/dl (0.2-1.0); Calcium 8.5 mg/dl (8.6-10.3); Creatinine Clr Calc Pharmacy 96.3 ml/min; Est GFR (African American) 102.5 ml/min; Est GFR (Non-African American) 88.5 ml/min; Magnesium 1.9 mg/dl (1.7-2.4); Potassium 4.3 mmol/L (3.5-5.1); Total Protein 6.3 gm/dl (6.0-8.3)
[2023-06-29 11:56] LABS: Hemoglobin 6.4 g/dl (14.0-18.0); Mean Corpuscular Hemoglobin 29.4 pg (25.0-34.0); Mean Corpuscular Hgb Conc 33.7 g/dL (32.0-36.0); Mean Corpuscular Volume 87.2 fL (80.0-100.0); Mean Platelet Volume 9.6 fL (9.4-12.4); Platelet Count 6 K/uL (130-400); RDW Coefficient of Variation 12.9 % (11.5-14.5); Red Blood Count 2.18 M/uL (4.70-6.10)
[2023-06-29] MEDS ORDERED: SODIUM CHLORIDE 0.9% 250 ML IV PRN ×2 (11:59→21:30)
--- NOTE | 2023-06-29 11:59 | XRay Report ---
XR chest 1V portable CLINICAL HISTORY: Sepsis TECHNIQUE: Single frontal radiograph of the chest was obtained. Comparison: Comparison is made to chest radiograph of 04/12/2022 FINDINGS: A port catheter is seen. The cardiomediastinal silhouette is normal. The lungs are clear. No evidence of pleural effusion or pneumothorax. IMPRESSION: No acute abnormalities and in particular no radiographic evidence of pneumonia. ACT 112: Negative or not required by law. Electronically signed by: Dallas Joyner M.D. 06/29/2023 11:57 AM
[2023-06-29 12:01] LABS: Troponin I High Sensitivity 29.8 pg/ml (0-20)
[2023-06-29] MEDS ORDERED: CEFEPIME 2,000 MG in SYRINGE 0 ML IV STA (12:01)
[2023-06-29] MEDS ORDERED: VANCOMYCIN HCL 1,750 MG in SODIUM CHLORIDE 0.9% 500 ML IV ONE (12:01)
[2023-06-29] MEDS ORDERED: VANCOMYCIN CONSULT ACTIVE PRN (12:01)
[2023-06-29 12:05] LABS: Base Excess VBG 3.1 mEq/L; HCO3 VBG 27 mmol/L; Oxygen Saturation VBG < 60.0 %; PCO2 VBG 38 mmHg (38-50); PO2 VBG 33 mmHg; pH VBG 7.46 (7.36-7.41)
--- NOTE | 2023-06-29 12:14 | Emergency Department Note ---
Impression & Plan Neutropenic fever ED Provider Note NAME: KENZIE CAO AGE: 68 SEX: M : 1955 ARRIVES VIA: Ambulance INFORMANT: Patient, ED PROVIDER(S): Joe Killian MD CHIEF COMPLAINT: Follow-up fever, chills HPI: This is a 68-year-old male with history of leukemia, formally on chemotherapy presenting for fever and chills for the past few days. The patient is here with a temperature that was elevated at home. He had chills and sweats at home. He notes that this is all the time and intermittent. He has had no nausea, vomiting, diarrhea, shortness of breath, chest pains, cough, sore throat. 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 He had a follow-up with ENT only few days ago had culture without results at this time. He states he was on chemotherapy and stopped about 2 months ago because he was pancytopenic and they were waiting for his bone marrow to bounce back. ROS: See above HPI for pertinent positives & negatives. A total of 10 systems reviewed and were otherwise negative. PAST MEDICAL HISTORY: See Below PAST SURGICAL HISTORY: See Below FAMILY HISTORY: See Below SOCIAL HISTORY: See Below HOME MEDICATIONS: See Below ALLERGIES: See Below VITALS: See Below PHYSICAL EXAMINATION: General: resting comfortably in no acute distress, diaphoretic Head: Normocephalic and atraumatic Eyes: Normal inspection, extraocular muscles intact Ear, nose, throat: Normal external exam Neck: Normal range of motion Respiratory: lungs clear to auscultation bilaterally Cardiovascular: Regular rate/rhythm, no murmur GI: soft, nontender, no guarding or rebound Extremities: nontender, moves all extremities Neuro: The patient awake and alert, appropriately conversive, no focal deficits, symmetric faces Skin: Warm, dry, and intact MEDICAL DECISION MAKING: This is a 68-year-old male history of leukemia presenting for fever and chills. Concern for systemic infection, patient does have a port, will get cultures of this. Patient has had chemotherapy with low white/red count, will determine whether patient is neutropenic fever at this time. Patient is significantly anemic here with a hemoglobin of 6.7. Will order RBC at this time. Patient also has a WBC count of 0.10 concerning for neutropenic fever. This likely resulting from his previous chemotherapy use. Patient is now tachycardic, febrile to 38.8. Will start broad-spectrum antibiotics including vancomycin and cefepime. Patient has improvement in his symptoms after Toradol administration. Will admit for neutropenic fever versus line infection at this time. Excepted to S. Chest Xray independently interpreted by me showing no pneumothorax, focal opacity, or pleural effusions. Records reviewed from 04/25, cardiology note, showing patient had an A-fib, EGD and eventually cardioversion into sinus rhythm. Triage Nursing notes reviewed. Prior medical records reviewed Vital Signs: reviewed and remarkable for no significant abnormalities Differential diagnosis: Neutropenic fever, pneumonia, sepsis, line infection ER treatment provided: See below Diagnostics interpreted by me: ECG: ECG independently interpreted by me with normal sinus rhythm, rate of 80, normal axis, normal IL, normal QRS, normal QTc, no ST segment elevations consistent with STEMI criteria Cardiac Monitoring: An order was placed for continuous cardiac monitoring. The monitor shows a rate of 120 with sinus rhythm Laboratory studies: As stated above and show below. Imaging studies: See below. Radiographic imaging was reviewed by myself Consultation(s): None Critical Care Note: I have personally spent 45 minutes of critical care time in the direct management of this patient. This includes bedside care, interpretation of diagnostic studies, and testing, discussion with consultants, patient, and family members, and other required patient management activities. This 45 minutes is in excess of all separately billable procedures. Past Med/Surg History Medical History AML (acute myeloblastic leukemia) Enlargement of aortic root Follows with Dr. Sibley Per December 2019 ECHO - Aortic root and proximal ascending aorta are mildly enlarged (4.3/4.1 cm respectively) Diabetes mellitus, type 2 DENIES NEUROPATHY History of melanoma PAST HISTORY GERD (gastroesophageal reflux disease) Hypertension Hyperlipidemia Atrial fibrillation Paroxysmal - very rare Per 09/21/20 cardio note- had a fib episode February 2020 after shingles vaccine and Jun 2020 - both episodes lasted several hours- resolved after taking Flecainide as prescribed (takes PRN per cardio instructions) [id number] score =3 for risk factors of age of 64, HTN, and DM2 per cardio records- patient not on AC secondary to bleeding complications in the past (Next cardio visit Sep 2021) Surgical History History of removal of cyst off finger History of colonoscopy History of cataract surgery bilt History of biopsy of bladder History of melanoma excision Family History (Updated 06/29/23 @ 15:18 by Fabienne Larsen PA-C) Other Hypertension No family history of adverse response to anesthesia Social History Smoking Status: Never smoker Cigarettes Per Day: QUIT IN 1987; Second Hand Exposure: No; Do You Dip or Chew Tobacco: No; Hx Alcohol Use: No Hx Substance Use: No Preferred Language: Turkmen Communication Ability: Effective Exercise Physiologist Certified Required: No Beliefs That Will Affect Care: None marital status: Current Living Situation: Spouse How many Children do You have: 1 Feels Safe at Home: Yes Assistive Devices: None Allergies Allergies Allergy/AdvReac Type Severity Reaction Status Date / Time bee venom protein (honey bee) Allergy Mild SWELLING Verified 06/25/23 10:23 hydrocodone AdvReac Unknown NAUSEA Verified 06/25/23 10:23 nitrofurantoin AdvReac Headache Verified 06/25/23 10:23 Home Meds Home Medications Medication Instructions Recorded Confirmed finasteride 5 mg tablet 5 mg PO HS 09/18/18 06/29/23 omeprazole 20 mg capsule,delayed 20 mg PO QAM 05/08/21 06/29/23 release rosuvastatin 10 mg tablet 10 mg PO QAM 05/08/21 06/29/23 losartan 100 mg tablet 100 mg PO QAM 05/10/21 06/29/23 tamsulosin 0.4 mg capsule (Flomax) 4 mg PO HS 05/10/21 06/29/23 acyclovir 400 mg tablet 400 mg PO BID 01/27/22 06/29/23 multivitamin with minerals 1 tab PO QAM 01/27/22 06/29/23 ondansetron 4 mg disintegrating 4 mg translingual Q6 PRN Nausea 02/05/22 06/29/23 tablet eplerenone 25 mg tablet 25 mg PO DAILY 11/29/22 06/29/23 tadalafil 5 mg tablet 5 mg PO DAILY PRN Muscle Pain 11/29/22 06/29/23 cefpodoxime 200 mg tablet 400 mg PO BID 12/09/22 06/29/23 escitalopram oxalate 10 mg tablet 10 mg PO DAILY 12/09/22 06/29/23 isavuconazonium sulfate 186 mg 372 mg PO BID 12/09/22 06/29/23 capsule (Cresemba) sildenafil 0 mg PO DIRECTED PRN Sexual 12/09/22 06/29/23 Activity venetoclax 100 mg tablet 200 mg PO BID 12/09/22 06/29/23 (Venclexta) amiodarone 200 mg tablet 200 mg PO DAILY 12/31/22 06/29/23 amlodipine 2.5 mg tablet 2.5 mg PO DAILY 12/31/22 06/29/23 metformin 500 mg tablet,extended 1,000 mg PO BID 12/31/22 06/29/23 release 24 hr nystatin 100,000 unit/mL oral 5 ml PO BID 06/25/23 06/29/23 suspension oxycodone 5 mg tablet 5 mg PO Q8H PRN Pain 06/25/23 06/29/23 Previous Rx's Medication Instructions Recorded furosemide 40 mg tablet 40 mg PO DAILY #30 tabs 02/08/22 potassium chloride 10 mEq 10 meq PO DAILY #30 tabs 02/08/22 tablet,extended release(part/cryst) Results & Data (ED) Vital Signs Vital Signs - 24 hr 06/29/23 10:58 06/29/23 11:05 06/29/23 11:15 Temperature 37.3 C Temperature Source Axillary Pulse Rate 94 H 90 85 Pulse Rate from SpO2 Sensor 90 79 Respiratory Rate 18 24 17 Blood Pressure 136/79 Blood Pressure Mean 98 Pulse Oximetry 95 94 93 Oxygen Delivery Method Room Air Sepsis Recent Fever Within 48 Hours Yes Sepsis New/Unexplained Change in Mental Status No Sepsis Action Taken by Nursing No Action Required 06/29/23 11:30 06/29/23 11:42 06/29/23 11:42 Temperature Temperature Source Pulse Rate 87 83 Pulse Rate from SpO2 Sensor 85 72 Respiratory Rate 16 14 Blood Pressure 110/68 Blood Pressure Mean 75 Pulse Oximetry 94 93 Oxygen Delivery Method Sepsis Recent Fever Within 48 Hours Sepsis New/Unexplained Change in Mental Status Sepsis Action Taken by Nursing 06/29/23 11:45 06/29/23 11:45 06/29/23 12:00 Temperature Temperature Source Pulse Rate 74 Pulse Rate from SpO2 Sensor 74 Respiratory Rate 18 Blood Pressure 113/73 Blood Pressure Mean 78 Pulse Oximetry 93 95 Oxygen Delivery Method Room Air Sepsis Recent Fever Within 48 Hours Sepsis New/Unexplained Change in Mental Status Sepsis Action Taken by Nursing 06/29/23 12:00 06/29/23 12:01 06/29/23 12:01 Temperature Temperature Source Pulse Rate 90 96 H Pulse Rate from SpO2 Sensor 86 86 Respiratory Rate 22 22 Blood Pressure 152/85 H Blood Pressure Mean 126 Pulse Oximetry 95 97 Oxygen Delivery Method Sepsis Recent Fever Within 48 Hours Sepsis New/Unexplained Change in Mental Status Sepsis Action Taken by Nursing 06/29/23 12:15 06/29/23 12:16 06/29/23 12:22 Temperature Temperature Source Pulse Rate 114 H 113 H 112 H Pulse Rate from SpO2 Sensor 120 H 114 H Respiratory Rate 27 H 27 H Blood Pressure Blood Pressure Mean Pulse Oximetry 94 Oxygen Delivery Method Sepsis Recent Fever Within 48 Hours Sepsis New/Unexplained Change in Mental Status Sepsis Action Taken by Nursing 06/29/23 12:30 06/29/23 12:37 06/29/23 12:45 Temperature 38.8 C H Temperature Source Rectal Pulse Rate 97 H Pulse Rate from SpO2 Sensor 92 H Respiratory Rate 16 Blood Pressure 178/90 H Blood Pressure Mean 127 Pulse Oximetry 94 Oxygen Delivery Method Sepsis Recent Fever Within 48 Hours Sepsis New/Unexplained Change in Mental Status Sepsis Action Taken by Nursing 06/29/23 12:45 06/29/23 13:00 06/29/23 13:00 Temperature 38.2 C H Temperature Source Oral Pulse Rate 102 H 102 H Pulse Rate from SpO2 Sensor Respiratory Rate 20 17 Blood Pressure 133/78 127/75 Blood Pressure Mean 106 92 Pulse Oximetry 94 Oxygen Delivery Method Sepsis Recent Fever Within 48 Hours Sepsis New/Unexplained Change in Mental Status Sepsis Action Taken by Nursing 06/29/23 13:01 06/29/23 13:01 06/29/23 13:15 Temperature Temperature Source Pulse Rate 100 H Pulse Rate from SpO2 Sensor 101 H Respiratory Rate 23 Blood Pressure 127/75 122/82 Blood Pressure Mean 87 89 Pulse Oximetry 94 Oxygen Delivery Method Sepsis Recent Fever Within 48 Hours Sepsis New/Unexplained Change in Mental Status Sepsis Action Taken by Nursing 06/29/23 13:15 06/29/23 13:20 Temperature 38.2 C H Temperature Source Oral Pulse Rate 124 H 97 H Pulse Rate from SpO2 Sensor 126 H Respiratory Rate 21 22 Blood Pressure 122/82 Blood Pressure Mean 95 Pulse Oximetry 91 92 Oxygen Delivery Method Sepsis Recent Fever Within 48 Hours Sepsis New/Unexplained Change in Mental Status Sepsis Action Taken by Nursing Laboratory Data 06/29/23 17:28 06/29/23 11:09 Lab Results 06/29/23 06/29/23 06/29/23 Range/Units 11:09 11:46 12:27 WBC 0.10 L* (4.8-10.8) K/ul RBC 2.18 L (4.70-6.10) M/uL Hgb 6.4 L* (14.0-18.0) g/dl Hct 19.0 L* (42.0-52.0) % MCV 87.2 (80.0-100.0) fL MCH 29.4 (25.0-34.0) pg MCHC 33.7 (32.0-36.0) g/dL RDW Std Deviation 41.0 (36.4-46.3) fL RDW Coeff of Anna 12.9 (11.5-14.5) % Plt Count 6 L* (130-400) K/uL MPV 9.6 (9.4-12.4) fL Immature Gran % (Auto) Cancelled Neut % (Auto) Cancelled Lymph % (Auto) Cancelled Jefferson % (Auto) Cancelled Eos % (Auto) Cancelled Baso % (Auto) Cancelled Neut # (Auto) Cancelled Lymph # (Auto) Cancelled Jefferson # (Auto) Cancelled Eos # (Auto) Cancelled Baso # (Auto) Cancelled Immature Gran # (Auto) Cancelled Neutrophils % (Manual) Cancelled Band Neutrophils % Cancelled Lymphocytes % (Manual) Cancelled Prolymphocyte % Cancelled Reactive Lymphs % (Man) Cancelled Monocytes % (Manual) Cancelled Eosinophils % (Manual) Cancelled Basophils % (Manual) Cancelled Metamyelocytes % (Man) Cancelled Myelocytes % (Man) Cancelled Promyelocytes % (Man) Cancelled Blast Cells % (Manual) Cancelled Plasma Cell % (Manual) Cancelled Other Cells % Cancelled Nucleated RBC % Cancelled Neutrophils # (Manual) Cancelled Band Neutrophils # Cancelled Total Absolute Neuts Cancelled Lymphocytes # (Manual) Cancelled Prolymphocyte # Cancelled Reactive Lymphs # Cancelled Total Abs Lymphocytes Cancelled Monocytes # (Manual) Cancelled Eosinophils # (Manual) Cancelled Basophils # (Manual) Cancelled Metamyelocytes # (Man) Cancelled Myelocytes # (Manual) Cancelled Promyelocytes # (Man) Cancelled Blast Cells # (Man) Cancelled Plasma Cell # (Manual) Cancelled Other Cells # Cancelled Nucleated RBCs # (Man) Cancelled Hypersegmented Neuts Cancelled Hyposegmented Neuts Cancelled Hypogranular Neuts Cancelled Large Granular Lymphs Cancelled # Lrg Granular Lymphs Cancelled Hairy Cells Cancelled Smudge Cells Cancelled Toxic Granulation Cancelled Toxic Vacuolation Cancelled Dohle Bodies Cancelled Becky Rods Cancelled Hypogranular Platelets Cancelled Giant Platelets Cancelled Platelet Satelliting Cancelled RBC Morphology Cancelled Polychromasia Cancelled Hypochromasia Cancelled Poikilocytosis Cancelled Basophilic Stippling Cancelled Anisocytosis Cancelled Microcytosis Cancelled Macrocytosis Cancelled Spherocytes Cancelled Pappenheimer Bodies Cancelled Sickle Cells Cancelled Target Cells Cancelled Tear Drop Cells Cancelled Ovalocytes Cancelled Stomatocytes Cancelled Guillen-Humbird Bodies Cancelled Echinocytes Cancelled Acanthocytes (Spur) Cancelled Rouleaux Cancelled RBC Agglutinates Cancelled Schistocytes Cancelled Sezary Cell Cancelled VBG pH 7.46 H (7.36-7.41) VBG pCO2 38 (38-50) mmHg VBG pO2 33 mmHg VBG HCO3 27 mmol/L VBG O2 Saturation < 60.0 % VBG Base Excess 3.1 mEq/L Sodium 134 L (136-145) mmol/L Potassium 4.3 (3.5-5.1) mmol/L Chloride 101 (98-107) mmol/L Carbon Dioxide 24 (21-32) mmol/L Anion Gap 9 (3-11) BUN 16 (6-23) mg/dl Creatinine 0.86 (0.6-1.4) mg/dl Est Cr Clr Drug Dosing 96.3 ml/min Est GFR ( Amer) 102.5 ml/min Est GFR (Non-Af Amer) 88.5 ml/min BUN/Creatinine Ratio 18.6 (10-20) Glucose 166 H (70-99(Fasting)) mg/dl Lactate 0.7 (0.4-2.0) mmol/L Calcium 8.5 L (8.6-10.3) mg/dl Magnesium 1.9 (1.7-2.4) mg/dl Total Bilirubin 0.5 (0.2-1.0) mg/dl Direct Bilirubin 0.1 (0-0.2) mg/dl AST 9 L (13-39) U/L ALT 17 (7-52) U/L Alkaline Phosphatase 115 H (34-104) U/L Troponin I High Sens 29.8 H (0-20) pg/ml Total Protein 6.3 (6.0-8.3) gm/dl Albumin 3.2 L (3.4-5.0) gm/dl Procalcitonin 0.80 H (0-0.5) ng/ml Blood Parasites ID Cancelled Blood Type O Positive Antibody Screen NEGATIVE Crossmatch See Detail Administered Medications Discontinued Medications Acetaminophen (Acetaminophen 325 Mg Tab) 650 mg PO NOW STA Stop: 06/29/23 13:38 Last Admin: 06/29/23 13:55 Dose: 650 mg Documented By: ROGER Amiodarone HCl (Amiodarone 200 Mg Tab) 200 mg PO NOW ONE Stop: 06/29/23 14:28 Last Admin: 06/29/23 16:56 Dose: 200 mg Documented By: ENRICO Diphenhydramine HCl (Diphenhydramine Capsule 25 Mg Cap) 25 mg PO NOW ONE Stop: 06/29/23 13:38 Last Admin: 06/29/23 13:55 Dose: 25 mg Documented By: ROGER Sodium Chloride (Nss) 1,000 mls @ 999 mls/hr IV .Q1H1M ANA MARÍA Stop: 06/29/23 12:30 Last Infusion: 06/29/23 13:20 Dose: Infused Documented By: Admin: 06/29/23 11:44 Dose: 999 mls/hr Documented By: JOSEPH Vancomycin HCl 1,750 mg/ (Sodium Chloride) 535 mls @ 200 mls/hr IV NOW ONE Stop: 06/29/23 14:41 Last Infusion: 06/29/23 15:33 Dose: Infused Documented By: Admin: 06/29/23 12:43 Dose: 200 mls/hr Documented By: JOSEPH Cefepime HCl 2,000 mg/ Syringe 20 mls @ 5 mls/min IV NOW STA; Protocol Stop: 06/29/23 12:04 Last Admin: 06/29/23 12:38 Dose: 5 mls/min Documented By: JOSEPH Ioversol (Optiray 320 500ml) 89 ml IV ONCE ONE Stop: 06/29/23 17:13 Last Admin: 06/29/23 17:13 Dose: 89 ml Documented By: HALIE Ketorolac Tromethamine (Ketorolac Tromethamine 15 Mg/Ml Vial) 15 mg IV NOW ONE Stop: 06/29/23 12:46 Last Admin: 06/29/23 13:16 Dose: 15 mg Documented By: JOSEPH Imaging Data Radiologist's Impression: Chest X-Ray 06/29/23 11:24 XR chest 1V portable CLINICAL HISTORY: Sepsis TECHNIQUE: Single frontal radiograph of the chest was obtained. Comparison: Comparison is made to chest radiograph of 04/12/2022 FINDINGS: A port catheter is seen. The cardiomediastinal silhouette is normal. The lungs are clear. No evidence of pleural effusion or pneumothorax. IMPRESSION: No acute abnormalities and in particular no radiographic evidence of pneumonia. ACT 112: Negative or not required by law. Electronically signed by: Dallas Joyner M.D. 06/29/2023 11:57 AM Discharge Plan Visit Data Chief Complaint: Fever Stated Complaint: FEVER, ED Provider: Joe Killian Discharge Problem: Neutropenic fever Patient Disposition: Admitted As Inpatient Discharge Instructions Interventions: ED Discharge Assessment Last Done: 06/29/23 15:41
[2023-06-29] MEDS ORDERED: KETOROLAC TROMETHAMINE 15 MG/ML VIAL IV ONE (12:45)
--- NOTE | 2023-06-29 13:07 | History & Physical Report ---
Date of Service June 29, 2023 Assessment & Plan (1) Pancytopenia: (2) Neutropenic fever: (3) AML (acute myelogenous leukemia): (4) Tongue lesion: (5) Atrial fibrillation: (6) Diabetes mellitus, type 2: (7) Hypertension: (8) Hyperlipidemia: Plan This is a 68 yo M with a PMH of relapsed AML with chemotherapy on hold since Apr 2023 2/2 low ANC and low platelet count following with Dr. Killian, DM II, HFrEF, persistent atrial fibrillation no longer on anticoagulation due to pancytopenia, HTN, BPH and other medical problems listed below who presents from home with neutropenic fever. Neutropenic fever AML T: 38.8 C, no clear source. Respiratory viral panel negative, CXR without acute abnormalities, UA, blood cultures drawn from port site, CT chest wo con pending Follows with Dr. Killian of heme onc, chemotherapy on hold since Apr 2023 2/2 low ANC and low platelet counts, has been requiring ~ weekly platelet transfusion Neutropenic precautions Continue empiric vanco and cefepime CBC with diff pending Pancytopenia WBC 0.10, RBC 2.18, Hgb 6.4 (recent baseline ~ 7-8), Plt 6 (requiring platelet transfusions 1-2x/week to keep plt>10) No acute bleeding noted, although tongue lesion has been bleeding at home every few days, per patient Given 1u platelets and 1u prbcs in ED - repeating CBC with diff this evening Additional platelets and prbc held Tongue lesion Recently was evaluated by [facility] ENT for oral lesion on 06/24/23 and instructed to treat with nystatin swish and swallow BID x 14 D and discontinued decadron rinses Fungal culture of tongue from that appointment is negative to date F/u with Dr. Cummings in 2 weeks and if lesion still present at that time for discussion of biopsy Consulted RD to help optimize nutrition given pain with eating, liquid diet and ADAT, Boost TID PRN Atrial fibrillation Given missed dose of amiodarone, currently rate controlled Continue amiodarone No longer on anticoagulation due to pancytopenia DM II A1c 7.6 earlier this month Metformin on hold 2/2 causing diarrhea SSI while in-patient BSG AC HS HTN Chronic diastolic heart failure Appears clinically dry, given 1L NSS in ED and will hold today's lasix dose Continue home Eplerenone and Lasix tomorrow based on AM labs and volume status HLD Continue statin Mood disorder Chronic, stable. Continue SSRI DVT Ppx: SCDs, avoid chemical VTE in setting of pancytopenia Code status: FULL PCP: Jacky Dispo: Admitting to PCU Patient seen in collaboration with Dr. Huff. Please see addendum. History of Present Illness Chief Complaint: fever Primary Care Provider: Anthony Rico MD This is a 68 yo M with a PMH of relapsed AML with chemotherapy on hold since Apr 2023 2/2 low ANC and low platelet count following with Dr. Killian, DM II, HFrEF, persistent atrial fibrillation no longer on anticoagulation due to pancytopenia, HTN, BPH and other medical problems listed below who presents from home with fever x 4 days. Has been undergoing platelet transfusion up to twice a week for the past few months since chemotherapy was held and last transfusion was last Friday. That evening, patient developed chills and intermittent fever which has happened previously following a transfusion but usually resolves after a full day. This time patient continued to feel poorly with intermittent fever, chills and poor appetite over the past 4 days before presented to ED today. Patient does have pain in mouth extending to jaw and ear from oral lesion discussed below, which has made it more difficult for him to eat and get adequate fluids. Denies any recent known contacts. No headache, sore throat or nasal congestion. No CP, SOB, abdominal pain, dysuria. Has not had a bowel movement in 3 days 2/2 decreased PO intake. No recent medication changes other than holding metformin due to diarrhea. Oral lesion occasionally bleeds but hasn't in 2 days. Recently was evaluated by [facility] ENT for oral lesion on 06/24/23 and instructed to treat with nystatin swish and swallow BID x 14 D and discontinue decadron rinses. Fungal culture of tongue from that appointment is negative to date. F/u with Dr. Cummings in 2 weeks and if lesion still present at that time for discussion of biopsy. Allergies Allergy/AdvReac Type Severity Reaction Status Date / Time bee venom protein (honey bee) Allergy Mild SWELLING Verified 06/25/23 10:23 hydrocodone AdvReac Unknown NAUSEA Verified 06/25/23 10:23 nitrofurantoin AdvReac Headache Verified 06/25/23 10:23 Home Medications Medication Instructions Recorded Confirmed Type finasteride 5 mg tablet 5 mg PO HS 09/18/18 06/29/23 History omeprazole 20 mg capsule,delayed 20 mg PO QAM 05/08/21 06/29/23 History release rosuvastatin 10 mg tablet 10 mg PO QAM 05/08/21 06/29/23 History losartan 100 mg tablet 100 mg PO QAM 05/10/21 06/29/23 History tamsulosin 0.4 mg capsule (Flomax) 4 mg PO HS 05/10/21 06/29/23 History acyclovir 400 mg tablet 400 mg PO BID 01/27/22 06/29/23 History multivitamin with minerals 1 tab PO QAM 01/27/22 06/29/23 History ondansetron 4 mg disintegrating 4 mg translingual Q6 PRN Nausea 02/05/22 06/29/23 History tablet furosemide 40 mg tablet 40 mg PO DAILY #30 tabs 02/08/22 06/29/23 Rx potassium chloride 10 mEq 10 meq PO DAILY #30 tabs 02/08/22 06/29/23 Rx tablet,extended release(part/cryst) eplerenone 25 mg tablet 25 mg PO DAILY 11/29/22 06/29/23 History tadalafil 5 mg tablet 5 mg PO DAILY PRN Muscle Pain 11/29/22 06/29/23 History cefpodoxime 200 mg tablet 400 mg PO BID 12/09/22 06/29/23 History escitalopram oxalate 10 mg tablet 10 mg PO DAILY 12/09/22 06/29/23 History isavuconazonium sulfate 186 mg 372 mg PO BID 12/09/22 06/29/23 History capsule (Cresemba) sildenafil 0 mg PO DIRECTED PRN Sexual 12/09/22 06/29/23 History Activity venetoclax 100 mg tablet 200 mg PO BID 12/09/22 06/29/23 History (Venclexta) amiodarone 200 mg tablet 200 mg PO DAILY 12/31/22 06/29/23 History amlodipine 2.5 mg tablet 2.5 mg PO DAILY 12/31/22 06/29/23 History metformin 500 mg tablet,extended 1,000 mg PO BID 12/31/22 06/29/23 History release 24 hr nystatin 100,000 unit/mL oral 5 ml PO BID 06/25/23 06/29/23 History suspension oxycodone 5 mg tablet 5 mg PO Q8H PRN Pain 06/25/23 06/29/23 History Past Med/Surg History Medical History AML (acute myeloblastic leukemia) Enlargement of aortic root Follows with Dr. Sibley Per December 2019 ECHO - Aortic root and proximal ascending aorta are mildly enlarged (4.3/4.1 cm respectively) Diabetes mellitus, type 2 DENIES NEUROPATHY History of melanoma PAST HISTORY GERD (gastroesophageal reflux disease) Hypertension Hyperlipidemia Atrial fibrillation Paroxysmal - very rare Per 09/21/20 cardio note- had a fib episode February 2020 after shingles vaccine and Jun 2020 - both episodes lasted several hours- resolved after taking Flecainide as prescribed (takes PRN per cardio instructions) [id number] score =3 for risk factors of age of 64, HTN, and DM2 per cardio records- patient not on AC secondary to bleeding complications in the past (Next cardio visit Sep 2021) Surgical History History of removal of cyst off finger History of colonoscopy History of cataract surgery bilt History of biopsy of bladder History of melanoma excision Family History (Updated 06/29/23 @ 15:18 by Fabienne Larsen PA-C) Other Hypertension No family history of adverse response to anesthesia Social History Smoking Status: Never smoker Cigarettes Per Day: QUIT IN 1987; Second Hand Exposure: No; Do You Dip or Chew Tobacco: No; Hx Alcohol Use: No Hx Substance Use: No Preferred Language: Tajik Communication Ability: Effective 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 Physical Exam Physical Exam: General Appearance: WD/WN, vitals as above, NAD, sitting up in bed, pleasant, appears chronically ill, pale but answers all questions appropriately Head: normocephalic, atraumatic Eyes: normal inspection, PERRL, conjunctivae normal, anicteric sclerae ENT: external ear and nose normal, dry mucous membranes of oropharynx, + dime- size lesion on lateral aspect of tongue, non bleeding Neck: normal visual inspection, trachea midline, no thyromegaly Respiratory: normal respiratory effort, lungs clear to auscultation, no wheeze, rales, rhonchi. No accessory muscle use Cardiovascular: tachycardic rate, no murmur appreciated, normal peripheral pulses, no BLE edema. Vessels: no JVD Chest: normal inspection of chest Abdomen/GI: normal bowel sounds, soft, nontender, no hepatosplenomegaly Extremities/Musculoskeletal: no cyanosis or clubbing, extremities motor strength 5/5 Neurologic: PERRL, EOMI, accommodation nl, no face palsy, no dysarthria, CN's II-XI intact bilaterally and moves all extremities Psychiatric: A+Ox3, euthymic affect Skin: no rashes, normal color, warm/dry Results & Data Results & Data Vital Signs (Past 12 Hours) Vital Signs Temp Pulse Resp BP Pulse Ox O2 Del Method 06/29/23 13:00 38.2 C H 102 H 20 127/75 94 06/29/23 12:37 38.8 C H 06/29/23 12:22 112 H 06/29/23 12:00 95 Room Air 06/29/23 10:58 37.3 C 94 H 18 136/79 95 Room Air Laboratory Results Short CBC 06/29/23 Range/Units 11:09 WBC 0.10 L* (4.8-10.8) K/ul Hgb 6.4 L* (14.0-18.0) g/dl Hct 19.0 L* (42.0-52.0) % Plt Count 6 L* (130-400) K/uL BMP 06/29/23 11:09 Sodium 134 L Potassium 4.3 Chloride 101 Carbon Dioxide 24 BUN 16 Creatinine 0.86 Glucose 166 H Calcium 8.5 L Liver Function 06/29/23 Range/Units 11:09 Total Bilirubin 0.5 (0.2-1.0) mg/dl Direct Bilirubin 0.1 (0-0.2) mg/dl AST 9 L (13-39) U/L ALT 17 (7-52) U/L Alkaline Phosphatase 115 H (34-104) U/L Albumin 3.2 L (3.4-5.0) gm/dl Diagnostic Findings Chest X-Ray 06/29/23 11:24 XR chest 1V portable CLINICAL HISTORY: Sepsis TECHNIQUE: Single frontal radiograph of the chest was obtained. Comparison: Comparison is made to chest radiograph of 04/12/2022 FINDINGS: A port catheter is seen. The cardiomediastinal silhouette is normal. The lungs are clear. No evidence of pleural effusion or pneumothorax. IMPRESSION: No acute abnormalities and in particular no radiographic evidence of pneumonia. ACT 112: Negative or not required by law. Electronically signed by: Dallas Joyner M.D. 06/29/2023 11:57 AM Supervising Physician Co-Signing Physician Notes Pt seen and examined by myself, Alanis Huff MD on the day of service. Care was coordinated with Fabienne Larsen PA-C. 68yoM with AML, last received chemotherapy 2 months ago. Presenting with pancytopenia with fevers. Has been getting platelet and blood transfusions weekly. Has a tongue lesion due for biopsy, fungal Cx NGTD thus far. Tongue lesion black. No noted open wounds, no diarrhea for the past few days. Infectious workup to rule out an infectious cause with UA, port blood cultures, biofire, CT chest, CT abd/pelvis. Possible neutropenic fever. Continue Vanc and Cefepime. Neutropenic precautions. Consider hematology/oncology and ID consult. Otherwise as above. (5) Atrial fibrillation Atrial fibrillation type: unspecified Qualified Code(s): I48.91 - Unspecified atrial fibrillation
[2023-06-29] MEDS ORDERED: diphenhydrAMINE Capsule 25 MG CAP PO ONE ×2 (13:37→21:26)
[2023-06-29] MEDS ORDERED: ACETAMINOPHEN 325 MG TAB PO STA ×2 (13:37→21:26)
[2023-06-29 14:23] LABS: Adenovirus PCR Not Detected (NotDetected); Bordetella parapertussis PCR Not Detected (NotDetected); Bordetella pertussis PCR Not Detected (NotDetected); Chlamydia pneumoniae PCR Not Detected (NotDetected); Coronavirus 229E PCR Not Detected (NotDetected); Coronavirus CoV-2 (COVID19)PCR Not Detected (NotDetected); Coronavirus HKU1 PCR Not Detected (NotDetected); Coronavirus NL63 PCR Not Detected (NotDetected); Coronavirus OC43PCR Not Detected (NotDetected); Human Metapneumovirus PCR Not Detected (NotDetected); Influenza A PCR Not Detected (NotDetected); Influenza B PCR Not Detected (NotDetected); Mycoplasma pneumoniae PCR Not Detected (NotDetected); Parainfluenza Virus 1 PCR Not Detected (NotDetected); Parainfluenza Virus 2 PCR Not Detected (NotDetected); Parainfluenza Virus 3 PCR Not Detected (NotDetected); Parainfluenza Virus 4 PCR Not Detected (NotDetected); Respiratory Syncytial VirusPCR Not Detected (NotDetected); Rhinovirus/Enterovirus PCR Not Detected (NotDetected)
[2023-06-29] MEDS ORDERED: AMIODARONE 200 MG TAB PO ONE (14:27)
[2023-06-29] MEDS ORDERED: POLYETHYLENE (MIRALAX) 17 GM PACK PO PRN (16:04)
[2023-06-29] MEDS ORDERED: ONDANSETRON INJ 2 MG/ML 2 ML VIAL IV PRN (16:04)
[2023-06-29] MEDS ORDERED: CARBOHYDRATES FOR HYPOGLYCEMIA PO PRN (16:08)
[2023-06-29] MEDS ORDERED: GLUCOSE 10 TAB/TUBE PO PRN (16:08)
[2023-06-29] MEDS ORDERED: GLUCAGON FOR INJ 1 MG VIAL SQ PRN (16:08)
[2023-06-29] MEDS ORDERED: GLUCOSE 40% GEL 15 GM TUBE PO PRN (16:08)
[2023-06-29] MEDS ORDERED: DEXTROSE 50% 50 ML SYRINGE IV PRN (16:08)
[2023-06-29] MEDS ORDERED: OPTIRAY 320 500ml IV ONE (17:12)
[2023-06-29 17:47] LABS: Appearance Urine Clear (Clear); Bacteria Urine Automated Negative (Negative); Bilirubin Urine Negative (Negative); Blood Urine Negative (Negative); Color Urine Yellow; Glucose Urine UA Negative (Negative); Ketones Urine 1+ (Negative); Leukocyte Esterase Urine Negative (Negative); Nitrite Urine Negative (Negative); Protein Urine 1+ (Negative); RBC Urine Automated 0-4 /hpf (0-4); Specific Gravity Urine 1.023 (1.000-1.030); Urobilinogen Urine Negative (Negative); pH Urine 6.5 (4.5-7.5)
--- NOTE | 2023-06-29 17:51 | CT Scan Report ---
CT abd pelvis IV con only CLINICAL HISTORY: fever TECHNIQUE: Helical axial images of the abdomen and pelvis were obtained and displayed. Automated dose lowering techniques and/or adjustment according to patient size were utilized for this exam. This e xam was performed with intravenous contrast. CT DOSE: 2169.43 mGy.cm COMPARISON: Comparison is made to CT abdomen pelvis 10/24/2010 FINDINGS: Lower chest: For findings above the diaphragm, please see CT chest performed same day. Liver: Unremarkable. No focal lesions are seen. Gallbladder and biliary tree: No calcified gallstones. Normal caliber wall. No intra- or extrahepatic biliary ductal dilation. Pancreas: Unremarkable, no focal lesions. Spleen: Unremarkable. Adrenals: Nodularity of the adrenal glands is noted. Kidneys and ureters: Subcentimeter hypodensities are too small to characterize. Nonobstructive stones are seen. Bladder: Unremarkable. Reproductive organs: Prostatic calcifications are seen which may represent prior hemorrhage or granul omatous disease. Bowel: Diverticulosis is seen without diverticulitis. The appendix is normal. Lymph nodes Retroperitoneal: Unremarkable. Pelvic: Unremarkable. Mesenteric: Unremarkable. Peritoneum: Normal. Vessels: Unremarkable. Abdominal wall: Unremarkable. Bones: Degenerative changes in the visualized spine. IMPRESSION: 1. No acute abnormalities are seen. 2. Diverticulosis without diverticulitis. 3. Nonobstructive nephrolithiasis. ACT 112: Negative or not required by law. Electronically signed by: Dallas Joyner M.D. 06/29/2023 5:49 PM
[2023-06-29 18:15] LABS: Hematocrit (blood only) 20.2 % (42.0-52.0); Hemoglobin 6.7 g/dl (14.0-18.0); Mean Corpuscular Hemoglobin 29.1 pg (25.0-34.0); Mean Corpuscular Hgb Conc 33.2 g/dL (32.0-36.0); Mean Corpuscular Volume 87.8 fL (80.0-100.0); Mean Platelet Volume 9.9 fL (9.4-12.4); Platelet Count 9 K/uL (130-400); RDW Coefficient of Variation 13.3 % (11.5-14.5); RDW Standard Deviation 42.8 fL (36.4-46.3); White Blood Count 0.27 K/ul (4.8-10.8)
--- NOTE | 2023-06-29 18:43 | CT Scan Report ---
CT chest diagnostic wo con CLINICAL HISTORY: neutropenic fever TECHNIQUE: Multidetector row helical CT of the chest was performed. Coronal and sagittal reformations were obtained. Automated dose lowering techniques and/or adjustment according to patient size were u tilized for this exam. Comparison: Comparison is made to CT chest 02/05/2022 FINDINGS: Lungs and pleura: Atelectasis versus scarring is seen in the dependent portions of the lungs. Heart and pericardium: Cardiomegaly is seen with biatrial enlargement. Incidental note is hypodensity of the blood pool compatible with anemia. Vessels: Mild atherosclerotic changes in the aorta and coronary arteries. Pulmonary trunk measures 33 mm. Mediastinum and yola: Unremarkable. Chest wall and lower neck: Unremarkable. Abdomen: For findings below the diaphragm, please refer to CT of the abdomen dated the same. Bones: Degenerative changes in the thoracic spine. IMPRESSION: 1. No acute abnormalities are seen to explain intracranial fever, in particular no evidence of pneum onia. 2. Pulmonary hypertension and mild cardiomegaly. 3. Anemia. ACT 112: Negative or not required by law. Electronically signed by: Dallas Joyner M.D. 06/29/2023 6:40 PM
[2023-06-29] MEDS: INSULIN ASPART PER UNIT CHARGE SC SCH ×2 (20:31→21:17)
[2023-06-29] MEDS: oxyCODONE HCL IR 5 MG TAB (IMMEDIATE RELEASE) PO PRN (20:51)
[2023-06-29] MEDS: CEFEPIME 2,000 MG in SYRINGE 0 ML IV SCH (21:00)
[2023-06-29] MEDS: FINASTERIDE 5 MG TAB PO SCH (21:12)
[2023-06-29] MEDS: TAMSULOSIN HCL 0.4 MG CAP PO SCH (21:12)
[2023-06-29] MEDS: ACYCLOVIR 400 MG TAB PO SCH (21:12)
[2023-06-29] MEDS: NYSTATIN SUSP 500,000 U/5 ML UDC PO SCH (21:12)
[2023-06-30 00:50] LABS: A calco-baum cmplx NotReported Not Detected (NotDetected); Bact fragilis Not Reported Not Detected (NotDetected); Blood Culture Id Panel See PCR Comment (NotDetected); C auris Not Reported Not Detected (NotDetected); CTX-M Resistant Gene DETECTED (NotDetected); Calbicans Not Reported Not Detected (NotDetected); Candida glabrata Not Reported Not Detected (NotDetected); Candida krusei Not Reported Not Detected (NotDetected); Cneoformans/gatti Not Reported Not Detected (NotDetected); Cparapsilosis Not Reported Not Detected (NotDetected); E cloacae compx Not Reported Not Detected (NotDetected); Efaecalis Not Reported Not Detected (NotDetected); Efaecium Not Reported Not Detected (NotDetected); Enterobacterales DETECTED (NotDetected); Enterobacterales Not Reported DETECTED (NotDetected); Escherichia coli Not Reported Not Detected (NotDetected); H influenzae Not Reported Not Detected (NotDetected); IMP Resistant Gene Not Detected (NotDetected); K aerogenes Not Reported Not Detected (NotDetected); KPC Resistant Gene Not Detected (NotDetected); Koxytoca Not Reported Not Detected (NotDetected); Kpneumoniae grp Not Reported DETECTED (NotDetected); Lmonocyt Not Reported Not Detected (NotDetected); N meningitidis Not Reported Not Detected (NotDetected); NDM Resistant Gene Not Detected (NotDetected); OXA 48 Like Resistant Gene Not Detected (NotDetected); P aeruginosa Not Reported Not Detected (NotDetected); Proteus spp Not Reported Not Detected (NotDetected); Salmonella spp Not Reported Not Detected (NotDetected); Smarcescens Not Reported Not Detected (NotDetected); Staph lugdunensis Not Reported Not Detected (NotDetected); Staph spp. Not Reported Not Detected (NotDetected); Staphaureus Not Reported Not Detected (NotDetected); Staphepi Not Reported Not Detected (NotDetected); Stenmaltophilia Not Reported Not Detected (NotDetected); Strep agal(GrpB) Not Reported Not Detected (NotDetected); Strep pneum Not Reported Not Detected (NotDetected); Strep pyog (GrpA) Not Reported Not Detected (NotDetected); Strep spp Not Reported Not Detected (NotDetected); VIM Resistant Gene Not Detected (NotDetected); mcr-1 Colistin Resistant Gene Not Detected (NotDetected)
[2023-06-30] MEDS: VANCOMYCIN HCL 1,250 MG in SODIUM CHLORIDE 0.9% 250 ML IV SCH ×3 (00:54→23:59)
[2023-06-30 01:01] LABS: Klebsiella pneumoniae group DETECTED (NotDetected)
[2023-06-30] MEDS ORDERED: ACETAMINOPHEN 1,000 MG/100 ML VIAL IV ONE (02:00)
[2023-06-30] MEDS: CEFEPIME 2,000 MG in SYRINGE 0 ML IV SCH (03:42)
[2023-06-30 05:16] LABS: BUN Creatinine Ratio 17.6 (10-20); Est GFR (Non-African American) 88.9 ml/min; Phosphorus 4.2 mg/dl (2.5-4.9); Potassium 4.2 mmol/L (3.5-5.1)
[2023-06-30 06:12] LABS: Hematocrit (blood only) 19.7 % (42.0-52.0); Hemoglobin 6.6 g/dl (14.0-18.0); Mean Corpuscular Hemoglobin 29.5 pg (25.0-34.0); Mean Corpuscular Hgb Conc 33.5 g/dL (32.0-36.0); Mean Corpuscular Volume 87.9 fL (80.0-100.0); Mean Platelet Volume 10.3 fL (9.4-12.4); Platelet Count 14 K/uL (130-400); RDW Coefficient of Variation 14.1 % (11.5-14.5); RDW Standard Deviation 45.3 fL (36.4-46.3); Red Blood Count 2.24 M/uL (4.70-6.10); White Blood Count 0.17 K/ul (4.8-10.8)
[2023-06-30] MEDS ORDERED: SODIUM CHLORIDE 0.9% 250 ML IV PRN (06:26)
[2023-06-30] MEDS ORDERED: diphenhydrAMINE Capsule 25 MG CAP PO ONE (06:26)
[2023-06-30] MEDS ORDERED: FUROSEMIDE INJ 20 MG/2 ML VIAL IV ONE (06:28)
[2023-06-30] MEDS: ACETAMINOPHEN 325 MG TAB PO PRN ×2 (07:27→22:14)
[2023-06-30] MEDS ORDERED: ERTAPENEM SODIUM 1,000 MG in SYRINGE 0 ML IV STA (07:40)
[2023-06-30] MEDS: ROSUVASTATIN CALCIUM 10 MG TAB PO SCH (08:08)
[2023-06-30] MEDS: ESCITALOPRAM OXALATE 10 MG TAB PO SCH (08:08)
[2023-06-30] MEDS: LOSARTAN POTASSIUM 50 MG TAB PO SCH (08:10)
[2023-06-30] MEDS: POTASSIUM CHLORIDE 10 MEQ TABCR PO SCH (08:11)
[2023-06-30] MEDS: AMIODARONE 200 MG TAB PO SCH (08:11)
[2023-06-30] MEDS: PANTOprazole 40 MG TAB PO SCH (08:12)
[2023-06-30] MEDS: amLODIPine BESYLATE 5 MG TAB PO SCH (08:12)
[2023-06-30] MEDS: FUROSEMIDE 40 MG TAB PO SCH (08:13)
[2023-06-30] MEDS: ACYCLOVIR 400 MG TAB PO SCH ×2 (08:14→20:30)
[2023-06-30] MEDS: CEROVITE ADV FORMULA TAB PO SCH (08:14)
[2023-06-30] MEDS: NYSTATIN SUSP 500,000 U/5 ML UDC PO SCH ×2 (08:27→20:31)
[2023-06-30] MEDS: INSULIN ASPART PER UNIT CHARGE SC SCH ×4 (08:28→20:30)
[2023-06-30] MEDS: oxyCODONE HCL IR 5 MG TAB (IMMEDIATE RELEASE) PO PRN ×2 (11:15→18:24)
[2023-06-30] MEDS ORDERED: LIDOCAINE VISCOUS 2% 15 ML UDC MT PRN (12:21)
[2023-06-30] MEDS ORDERED: HEPARIN 100 UNIT/ML 5ML FLUSH FLUSH PRN (12:22)
[2023-06-30 13:43] LABS: A calco-baum cmplx NotReported Not Detected (NotDetected); Bact fragilis Not Reported Not Detected (NotDetected); Blood Culture Id Panel See PCR Comment (NotDetected); C auris Not Reported Not Detected (NotDetected); Calbicans Not Reported Not Detected (NotDetected); Candida glabrata Not Reported Not Detected (NotDetected); Candida krusei Not Reported Not Detected (NotDetected); Cneoformans/gatti Not Reported Not Detected (NotDetected); Cparapsilosis Not Reported Not Detected (NotDetected); E cloacae compx Not Reported Not Detected (NotDetected); Efaecalis Not Reported Not Detected (NotDetected); Efaecium Not Reported Not Detected (NotDetected); Enterobacterales Not Reported Not Detected (NotDetected); Escherichia coli Not Reported Not Detected (NotDetected); H influenzae Not Reported Not Detected (NotDetected); K aerogenes Not Reported Not Detected (NotDetected); Koxytoca Not Reported Not Detected (NotDetected); Kpneumoniae grp Not Reported Not Detected (NotDetected); Lmonocyt Not Reported Not Detected (NotDetected); N meningitidis Not Reported Not Detected (NotDetected); P aeruginosa Not Reported Not Detected (NotDetected); Proteus spp Not Reported Not Detected (NotDetected); Salmonella spp Not Reported Not Detected (NotDetected); Smarcescens Not Reported Not Detected (NotDetected); Staph lugdunensis Not Reported Not Detected (NotDetected); Staph spp. Not Reported DETECTED (NotDetected); Staphaureus Not Reported Not Detected (NotDetected); Staphepi Not Reported DETECTED (NotDetected); Staphylococcus spp. DETECTED (NotDetected); Stenmaltophilia Not Reported Not Detected (NotDetected); Strep agal(GrpB) Not Reported Not Detected (NotDetected); Strep pneum Not Reported Not Detected (NotDetected); Strep pyog (GrpA) Not Reported Not Detected (NotDetected); Strep spp Not Reported Not Detected (NotDetected); mecAC Resistant Gene DETECTED (NotDetected)
[2023-06-30 13:58] LABS: Staphylococcus epidermidis DETECTED (NotDetected)
[2023-06-30] MEDS ORDERED: VANCOMYCIN CONSULT ACTIVE PRN (15:19)
--- NOTE | 2023-06-30 16:00 | Hospitalist Progress Note ---
Date of Service June 30, 2023 Assessment & Plan (1) Pancytopenia: (2) Neutropenic fever: (3) AML (acute myelogenous leukemia): (4) Tongue lesion: (5) Atrial fibrillation: (6) Diabetes mellitus, type 2: (7) Hypertension: (8) Hyperlipidemia: Plan This is a 68 yo M with a PMH of relapsed AML with chemotherapy on hold since Apr 2023 2/2 low ANC and low platelet count following with Dr. Killian, DM II, HFrEF, persistent atrial fibrillation no longer on anticoagulation due to pancytopenia, HTN, BPH and other medical problems listed below who presents from home with neutropenic fever. Neutropenic fever AML T: 38.8 C, no clear source. Respiratory viral panel negative, CXR without acute abnormalities, UA, blood cultures drawn from port site, CT chest -no pneumonia or infiltrate Follows with Dr. Killian of [facility] onc, chemotherapy on hold since Apr 2023 2/2 low ANC and low platelet counts, has been requiring ~ weekly platelet transfusion Neutropenic precautions Continue empiric vanco and cefepime Antibiotic were changed to ertapenem given the BioFire plus blood culture results so far and vancomycin was discontinued Later on the blood culture came back positive for gram-positive cocci and vancomycin was added on the same day No more fever but the patient has occasional chills Feeling a little better ID consult awaiting Pancytopenia WBC 0.10, RBC 2.18, Hgb 6.4 (recent baseline ~ 7-8), Plt 6 (requiring platelet transfusions 1-2x/week to keep plt>10) No acute bleeding noted, although tongue lesion has been bleeding at home every few days, per patient Given 1u platelets and 1u prbcs in ED - repeating CBC with diff this evening Additional platelets and prbc held Discussed with the oncologist-will continue with blood and platelet transfusion Given the neutropenia and possible sepsis will start Neupogen Monitor CBC Tongue lesion Recently was evaluated by [facility] ENT for oral lesion on 06/24/23 and instructed to treat with nystatin swish and swallow BID x 14 D and discontinued decadron rinses Fungal culture of tongue from that appointment is negative to date F/u with Dr. Cummings in 2 weeks and if lesion still present at that time for discussion of biopsy Consulted RD to help optimize nutrition given pain with eating, liquid diet and ADAT, Boost TID PRN Will have lidocaine viscous to control tongue pain and oral pain Atrial fibrillation Given missed dose of amiodarone, currently rate controlled Continue amiodarone No longer on anticoagulation due to pancytopenia Rate is controlled-on no anticoagulation due to severe thrombocytopenia DM II A1c 7.6 earlier this month Metformin on hold 2/2 causing diarrhea SSI while in-patient BSG AC HS HTN Chronic diastolic heart failure Appears clinically dry, given 1L NSS in ED and will hold today's lasix dose Continue home Eplerenone and Lasix tomorrow based on AM labs and volume status HLD Continue statin Mood disorder Chronic, stable. Continue SSRI DVT Ppx: SCDs, avoid chemical VTE in setting of pancytopenia Code status: FULL PCP: Jacky Dispo: Admitting to PCU Admission and Anticipated Discharge Date Admission Date: June 29, 2023 Subjective 06/30/2023 The patient was seen and examined in telemetry unit He has been complaining of fever with chills for the last 4 or 5 days He has significant pancytopenia and weakness from his illness Has been feeling a little better following blood and platelet transfusion so far Review of Systems Review of Systems: All systems reviewed and are unremarkable except as noted below Physical Exam Physical Exam: Lying in bed comfortably Constitutional: well developed, well nourished, + ill appearing and + obese Eyes: PERRL, conjunctivae normal, anicteric sclerae ENMT: external ear and nose normal, oropharynx normal Neck: trachea midline, no thyromegaly Respiratory: + respiratory distress (Minimal respirat ory distress) Auscultation: + diminished lung sounds and + crackles (Occasional bibasilar crackles) Cardiovascular: Rate/Rhythm: regular rate and regular rhythm; not tachycardic Heart Sounds: normal S1 and normal S2; no murmur Extremities: + edema (Trace to 1+ edema bilaterally) Gastrointestinal (Abdomen): Inspection/Auscultation: normal bowel sounds; abdomen not distended Percussion/Palpation: abdomen soft; abdomen nontender Musculoskeletal: No acute arthritis involving any joint Neurologic: Alert, awake and oriented x 3. Very anxious and weak. Has been moving all limbs Lymphatic: no cervical or axillary lymphadenopathy Results & Data Results & Data Vital Signs (Past 12 Hours) Vital Signs Temp Pulse Pulse Resp BP BP Pulse Ox 06/30/23 15:15 37.3 C 82 19 125/63 93 06/30/23 12:38 38.2 C H 122 H 06/30/23 11:00 36.7 C 65 125/75 95 06/30/23 10:56 36.8 C 59 L 18 127/78 06/30/23 09:56 37.3 C 67 19 123/73 95 06/30/23 08:56 37.7 C H 67 20 118/68 95 06/30/23 08:26 37.7 C H 80 20 136/72 94 06/30/23 08:11 37.3 C 87 20 138/74 98 06/30/23 07:51 37.6 C H 85 22 169/73 H 97 O2 Del Method O2 Flow Rate 06/30/23 15:15 Nasal Cannula 2.0 06/30/23 12:38 06/30/23 11:00 06/30/23 10:56 06/30/23 09:56 06/30/23 08:56 06/30/23 08:26 06/30/23 08:11 06/30/23 07:51 3 Laboratory Results Short CBC 06/29/23 06/30/23 Range/Units 17:28 04:49 WBC 0.27 L* 0.17 L* (4.8-10.8) K/ul Hgb 6.7 L* 6.6 L* (14.0-18.0) g/dl Hct 20.2 L* 19.7 L* (42.0-52.0) % Plt Count 9 L* 14 L* D (130-400) K/uL BMP 06/30/23 04:49 Sodium 135 L Potassium 4.2 Chloride 105 Carbon Dioxide 25 BUN 15 Creatinine 0.85 Glucose 154 H Calcium 8.0 L Urine 06/29/23 Range/Units 17:29 Urine Color Yellow Urine Appearance Clear (Clear) Urine pH 6.5 (4.5-7.5) Ur Specific [place] 1.023 (1.000-1.030) Urine Protein 1+ H (Negative) Urine Glucose (UA) Negative (Negative) Diagnostic Findings Current Inpatient Medications Acetaminophen (Acetaminophen 325 Mg Tab) 650 mg PO Q4H PRN PRN Reason: Mild Pain or Fever Stop: 07/29/23 16:03 Last Admin: 06/30/23 07:27 Dose: 650 mg Acyclovir (Acyclovir 400 Mg Tab) 400 mg PO BID ANA MARÍA Stop: 07/29/23 20:59 Last Admin: 06/30/23 08:14 Dose: 400 mg Amiodarone HCl (Amiodarone 200 Mg Tab) 200 mg PO DAILY ANA MRAÍA Stop: 07/30/23 08:59 Last Admin: 06/30/23 08:11 Dose: 200 mg Amlodipine Besylate (Amlodipine Besylate 5 Mg Tab) 2.5 mg PO DAILY ANA MARÍA Stop: 07/30/23 08:59 Last Admin: 06/30/23 08:12 Dose: 2.5 mg Dextrose (Dextrose 50% 50 Ml Syringe) 25 - 50 ml IV UD PRN; Protocol PRN Reason: Hypoglycemia Protocol Stop: 07/29/23 16:07 Escitalopram Oxalate (Escitalopram Oxalate 10 Mg Tab) 10 mg PO DAILY ANA MARÍA Stop: 07/30/23 08:59 Last Admin: 06/30/23 08:08 Dose: 10 mg Finasteride (Finasteride 5 Mg Tab) 5 mg PO HS ANA MARÍA Stop: 07/29/23 20:59 Last Admin: 06/29/23 21:12 Dose: 5 mg Furosemide (Furosemide 40 Mg Tab) 40 mg PO DAILY ANA MARÍA Stop: 07/30/23 08:59 Last Admin: 06/30/23 08:13 Dose: 40 mg Glucagon (Glucagon For Inj 1 Mg Vial) 1 mg SQ UD PRN; Protocol PRN Reason: Hypoglycemia Protocol Stop: 07/29/23 16:07 Glucose (Glucose 10 Tab/Tube) 4 - 8 tab PO UD PRN; Protocol PRN Reason: Hypoglycemia Treatment Stop: 07/29/23 16:07 Glucose (Glucose 40% Gel 15 Gm Tube) 15 - 30 gm PO UD PRN; Protocol PRN Reason: Hypoglycemia Protocol Stop: 07/29/23 16:07 Heparin Sodium (Porcine) (Heparin 100 Unit/Ml 5ml Flush) 5 ml FLUSH PRN PRN PRN Reason: Flush Stop: 07/30/23 12:21 Vancomycin HCl 1,250 mg/ (Sodium Chloride) 275 mls @ 200 mls/hr IV Q12H ANA MARÍA Stop: 07/07/23 14:00 Last Infusion: 06/30/23 14:02 Dose: Infused Sodium Chloride (Nss) 250 mls @ 15 mls/hr IV .[id number] PRN PRN Reason: For Transfusion Duration Stop: 06/30/23 16:27 Ertapenem 1,000 mg/ Syringe 10 mls @ 2 mls/min IV Q24H [facility] Stop: 07/14/23 07:59 Insulin Aspart (Insulin Aspart Per Unit Charge) 0 units SC ACHS ANA MARÍA Stop: 07/29/23 16:29 Last Admin: 06/30/23 12:25 Dose: 4 units Lidocaine HCl (Lidocaine Viscous 2% 15 Ml Udc) 15 ml MT QID PRN PRN Reason: Pain Stop: 07/30/23 12:20 Losartan Potassium (Losartan Potassium 50 Mg Tab) 100 mg PO QAM [facility] Stop: 07/30/23 08:59 Last Admin: 06/30/23 08:10 Dose: 100 mg Miscellaneous (Eplerenone: Order Awaiting Action) 1 each N/A QS ANA MARÍA Stop: 07/30/23 00:00 Last Admin: 06/30/23 01:00 Dose: Not Given Miscellaneous (Cresemba 186 Mg: Order Awaiting Action) 1 each N/A QS ANA MARÍA Stop: 07/30/23 00:00 Last Admin: 06/30/23 01:00 Dose: Not Given Miscellaneous (Carbohydrates For Hypoglycemia ) 15 - 30 gm PO UD PRN PRN Reason: Hypoglycemia Protocol Stop: 07/29/23 16:07 Miscellaneous Information (Vancomycin Consult Active) 1 each N/A UD PRN PRN Reason: Consult Stop: 07/30/23 15:18 Multivitamins/Minerals (Cerovite Adv Formula Tab) 1 tab PO QAM [facility] Stop: 07/30/23 08:59 Last Admin: 06/30/23 08:14 Dose: 1 tab Nystatin (Nystatin Susp 500,000 U/5 Ml Udc) 5 ml PO BID [facility] Stop: 07/09/23 20:59 Last Admin: 06/30/23 08:27 Dose: 5 ml Ondansetron HCl (Ondansetron Inj 2 Mg/Ml 2 Ml Vial) 4 mg IV Q6H PRN PRN Reason: Nausea Stop: 07/29/23 16:03 Oxycodone HCl (Oxycodone Hcl Ir 5 Mg Tab (Immediate Release)) 5 mg PO Q8H PRN PRN Reason: Moderate to Severe Pain Stop: 07/13/23 16:03 Last Admin: 06/30/23 11:15 Dose: 5 mg Pantoprazole Sodium (Pantoprazole 40 Mg Tab) 40 mg PO QAM ANA MARÍA Stop: 07/30/23 08:59 Last Admin: 06/30/23 08:12 Dose: 40 mg Polyethylene Glycol (Polyethylene (Miralax) 17 Gm Pack) 17 gm PO DAILY PRN PRN Reason: Constipation Stop: 07/29/23 16:03 Potassium Chloride (Potassium Chloride 10 Meq Tabcr) 10 meq PO DAILY ANA MARÍA Stop: 07/30/23 08:59 Last Admin: 06/30/23 08:11 Dose: 10 meq Rosuvastatin Calcium (Rosuvastatin Calcium 10 Mg Tab) 10 mg PO QAM ANA MARÍA Stop: 07/30/23 08:59 Last Admin: 06/30/23 08:08 Dose: 10 mg Tamsulosin HCl (Tamsulosin Hcl 0.4 Mg Cap) 0.4 mg PO HS ANA MARÍA Stop: 07/29/23 20:59 Last Admin: 06/29/23 21:12 Dose: 0.4 mg Medications Administered Current Inpatient Medications Acetaminophen (Acetaminophen 325 Mg Tab) 650 mg PO Q4H PRN PRN Reason: Mild Pain or Fever Stop: 07/29/23 16:03 Last Admin: 06/30/23 07:27 Dose: 650 mg Acyclovir (Acyclovir 400 Mg Tab) 400 mg PO BID ANA MARÍA Stop: 07/29/23 20:59 Last Admin: 06/30/23 08:14 Dose: 400 mg Amiodarone HCl (Amiodarone 200 Mg Tab) 200 mg PO DAILY ANA MARÍA Stop: 07/30/23 08:59 Last Admin: 06/30/23 08:11 Dose: 200 mg Amlodipine Besylate (Amlodipine Besylate 5 Mg Tab) 2.5 mg PO DAILY ANA MARÍA Stop: 07/30/23 08:59 Last Admin: 06/30/23 08:12 Dose: 2.5 mg Dextrose (Dextrose 50% 50 Ml Syringe) 25 - 50 ml IV UD PRN; Protocol PRN Reason: Hypoglycemia Protocol Stop: 07/29/23 16:07 Escitalopram Oxalate (Escitalopram Oxalate 10 Mg Tab) 10 mg PO DAILY ANA MARÍA Stop: 07/30/23 08:59 Last Admin: 06/30/23 08:08 Dose: 10 mg Finasteride (Finasteride 5 Mg Tab) 5 mg PO HS ANA MARÍA Stop: 07/29/23 20:59 Last Admin: 06/29/23 21:12 Dose: 5 mg Furosemide (Furosemide 40 Mg Tab) 40 mg PO DAILY ANA MARÍA Stop: 07/30/23 08:59 Last Admin: 06/30/23 08:13 Dose: 40 mg Glucagon (Glucagon For Inj 1 Mg Vial) 1 mg SQ UD PRN; Protocol PRN Reason: Hypoglycemia Protocol Stop: 07/29/23 16:07 Glucose (Glucose 10 Tab/Tube) 4 - 8 tab PO UD PRN; Protocol PRN Reason: Hypoglycemia Treatment Stop: 07/29/23 16:07 Glucose (Glucose 40% Gel 15 Gm Tube) 15 - 30 gm PO UD PRN; Protocol PRN Reason: Hypoglycemia Protocol Stop: 07/29/23 16:07 Heparin Sodium (Porcine) (Heparin 100 Unit/Ml 5ml Flush) 5 ml FLUSH PRN PRN PRN Reason: Flush Stop: 07/30/23 12:21 Vancomycin HCl 1,250 mg/ (Sodium Chloride) 275 mls @ 200 mls/hr IV Q12H ANA MARÍA Stop: 07/07/23 14:00 Last Infusion: 06/30/23 14:02 Dose: Infused Sodium Chloride (Nss) 250 mls @ 15 mls/hr IV .[id number] PRN PRN Reason: For Transfusion Duration Stop: 06/30/23 16:27 Ertapenem 1,000 mg/ Syringe 10 mls @ 2 mls/min IV Q24H ANA MARÍA Stop: 07/14/23 07:59 Insulin Aspart (Insulin Aspart Per Unit Charge) 0 units SC ACHS ANA MARÍA Stop: 07/29/23 16:29 Last Admin: 06/30/23 12:25 Dose: 4 units Lidocaine HCl (Lidocaine Viscous 2% 15 Ml Udc) 15 ml MT QID PRN PRN Reason: Pain Stop: 07/30/23 12:20 Losartan Potassium (Losartan Potassium 50 Mg Tab) 100 mg PO QAM ANA MARÍA Stop: 07/30/23 08:59 Last Admin: 06/30/23 08:10 Dose: 100 mg Miscellaneous (Eplerenone: Order Awaiting Action) 1 each N/A QS ANA MARÍA Stop: 07/30/23 00:00 Last Admin: 06/30/23 01:00 Dose: Not Given Miscellaneous (Cresemba 186 Mg: Order Awaiting Action) 1 each N/A QS ANA MARÍA Stop: 07/30/23 00:00 Last Admin: 06/30/23 01:00 Dose: Not Given Miscellaneous (Carbohydrates For Hypoglycemia ) 15 - 30 gm PO UD PRN PRN Reason: Hypoglycemia Protocol Stop: 07/29/23 16:07 Miscellaneous Information (Vancomycin Consult Active) 1 each N/A UD PRN PRN Reason: Consult Stop: 07/30/23 15:18 Multivitamins/Minerals (Cerovite Adv Formula Tab) 1 tab PO QAM ANA MARÍA Stop: 07/30/23 08:59 Last Admin: 06/30/23 08:14 Dose: 1 tab Nystatin (Nystatin Susp 500,000 U/5 Ml Ud) 5 ml PO BID ANA MARÍA Stop: 07/09/23 20:59 Last Admin: 06/30/23 08:27 Dose: 5 ml Ondansetron HCl (Ondansetron Inj 2 Mg/Ml 2 Ml Vial) 4 mg IV Q6H PRN PRN Reason: Nausea Stop: 07/29/23 16:03 Oxycodone HCl (Oxycodone Hcl Ir 5 Mg Tab (Immediate Release)) 5 mg PO Q8H PRN PRN Reason: Moderate to Severe Pain Stop: 07/13/23 16:03 Last Admin: 06/30/23 11:15 Dose: 5 mg Pantoprazole Sodium (Pantoprazole 40 Mg Tab) 40 mg PO QAM [facility] Stop: 07/30/23 08:59 Last Admin: 06/30/23 08:12 Dose: 40 mg Polyethylene Glycol (Polyethylene (Miralax) 17 Gm Pack) 17 gm PO DAILY PRN PRN Reason: Constipation Stop: 07/29/23 16:03 Potassium Chloride (Potassium Chloride 10 Meq Tabcr) 10 meq PO DAILY ANA MARÍA Stop: 07/30/23 08:59 Last Admin: 06/30/23 08:11 Dose: 10 meq Rosuvastatin Calcium (Rosuvastatin Calcium 10 Mg Tab) 10 mg PO QAM [facility] Stop: 07/30/23 08:59 Last Admin: 06/30/23 08:08 Dose: 10 mg Tamsulosin HCl (Tamsulosin Hcl 0.4 Mg Cap) 0.4 mg PO HS [facility] Stop: 07/29/23 20:59 Last Admin: 06/29/23 21:12 Dose: 0.4 mg (5) Atrial fibrillation Atrial fibrillation type: unspecified Qualified Code(s): I48.91 - Unspecified atrial fibrillation
--- NOTE | 2023-06-30 17:37 | Electrocardiogram Report ---
Test Reason : Blood Pressure : / mmHG Vent. Rate : 080 BPM Atrial Rate : 080 BPM P-R Int : 150 ms QRS Dur : 102 ms QT Int : 372 ms P-R-T Axes : 080 019 049 degrees QTc Int : 429 ms Sinus rhythm with Premature supraventricular complexes Nonspecific ST abnormality When compared with ECG of 31-DEC-2022 13:35, Premature supraventricular complexes are now Present Confirmed by Wilfrid Ball ([id number]) on 06/30/2023 5:36:41 PM Referred By: REFERRED SELF Confirmed By:Lucas Ball
[2023-06-30] MEDS ORDERED: FIRST - Mouthwash BLM 119 ML PO PRN (19:35)
--- NOTE | 2023-06-30 19:48 | Electrocardiogram Report ---
Test Reason : Blood Pressure : / mmHG Vent. Rate : 096 BPM Atrial Rate : 096 BPM P-R Int : 160 ms QRS Dur : 094 ms QT Int : 290 ms P-R-T Axes : 076 038 048 degrees QTc Int : 366 ms Normal sinus rhythm Nonspecific ST and T wave abnormality Abnormal ECG When compared with ECG of 29-JUN-2023 11:35, (unconfirmed) Premature supraventricular complexes are no longer Present ST now depressed in Lateral leads QT has shortened Confirmed by Wilfrid Ball ([id number]) on 06/30/2023 7:48:12 PM Referred By: REFERRED SELF Confirmed By:Lucas Ball
[2023-06-30] MEDS: FINASTERIDE 5 MG TAB PO SCH (20:29)
[2023-06-30] MEDS: TAMSULOSIN HCL 0.4 MG CAP PO SCH (20:30)
[2023-06-30 20:39] LABS: Hematocrit (blood only) 21.9 % (42.0-52.0); Hemoglobin 7.6 g/dl (14.0-18.0); Mean Corpuscular Hemoglobin 29.8 pg (25.0-34.0); Mean Corpuscular Hgb Conc 34.7 g/dL (32.0-36.0); Mean Corpuscular Volume 85.9 fL (80.0-100.0); Mean Platelet Volume 10.9 fL (9.4-12.4); Platelet Count 9 K/uL (130-400); RDW Standard Deviation 43.9 fL (36.4-46.3); Red Blood Count 2.55 M/uL (4.70-6.10); White Blood Count 0.18 K/ul (4.8-10.8)
[2023-07-01 01:02] LABS: Hematocrit (blood only) 21.8 % (42.0-52.0); Hemoglobin 7.6 g/dl (14.0-18.0); Mean Corpuscular Hemoglobin 29.9 pg (25.0-34.0); Mean Corpuscular Hgb Conc 34.9 g/dL (32.0-36.0); Mean Corpuscular Volume 85.8 fL (80.0-100.0); Mean Platelet Volume 9.5 fL (9.4-12.4); Platelet Count 14 K/uL (130-400); RDW Standard Deviation 44.2 fL (36.4-46.3); Red Blood Count 2.54 M/uL (4.70-6.10); White Blood Count 0.18 K/ul (4.8-10.8)
[2023-07-01 07:20] LABS: Hematocrit (blood only) 20.6 % (42.0-52.0); Hemoglobin 7.2 g/dl (14.0-18.0); Mean Corpuscular Hemoglobin 30.1 pg (25.0-34.0); Mean Corpuscular Volume 86.2 fL (80.0-100.0); Mean Platelet Volume 10.2 fL (9.4-12.4); Platelet Count 11 K/uL (130-400); RDW Coefficient of Variation 13.9 % (11.5-14.5); RDW Standard Deviation 44.4 fL (36.4-46.3); Red Blood Count 2.39 M/uL (4.70-6.10); White Blood Count 0.24 K/ul (4.8-10.8)
[2023-07-01 07:21] LABS: Est GFR (African American) 101.1 ml/min; Est GFR (Non-African American) 87.2 ml/min; Magnesium 2.1 mg/dl (1.7-2.4); Potassium 3.9 mmol/L (3.5-5.1)
[2023-07-01] MEDS: ERTAPENEM SODIUM 1,000 MG in SYRINGE 0 ML IV SCH (08:11)
[2023-07-01] MEDS: ACYCLOVIR 400 MG TAB PO SCH ×2 (08:11→20:37)
[2023-07-01] MEDS: INSULIN ASPART PER UNIT CHARGE SC SCH ×4 (08:11→20:03)
[2023-07-01] MEDS: CEROVITE ADV FORMULA TAB PO SCH (08:12)
[2023-07-01] MEDS: LOSARTAN POTASSIUM 50 MG TAB PO SCH (08:12)
[2023-07-01] MEDS: ESCITALOPRAM OXALATE 10 MG TAB PO SCH (08:12)
[2023-07-01] MEDS: amLODIPine BESYLATE 5 MG TAB PO SCH (08:13)
[2023-07-01] MEDS: PANTOprazole 40 MG TAB PO SCH (08:13)
[2023-07-01] MEDS: AMIODARONE 200 MG TAB PO SCH (08:13)
[2023-07-01] MEDS: FUROSEMIDE 40 MG TAB PO SCH (08:14)
[2023-07-01] MEDS: ROSUVASTATIN CALCIUM 10 MG TAB PO SCH (08:14)
[2023-07-01] MEDS: NYSTATIN SUSP 500,000 U/5 ML UDC PO SCH ×2 (08:15→20:37)
[2023-07-01] MEDS: POTASSIUM CHLORIDE 10 MEQ TABCR PO SCH (08:35)
[2023-07-01] MEDS ORDERED: VANCOMYCIN LEVEL ONE (11:00)
[2023-07-01] MEDS: VANCOMYCIN HCL 1,250 MG in SODIUM CHLORIDE 0.9% 250 ML IV SCH ×2 (12:28→23:39)
[2023-07-01] MEDS: ACETAMINOPHEN 325 MG TAB PO PRN ×2 (12:31→20:42)
--- NOTE | 2023-07-01 13:24 | Pharmacy Report ---
Pharmacy PK ABX Note - Date of Service July 01, 2023 - Assessment and Plan Assessment 68 year old M receiving vancomycin and ertapenem for treatment of bacteremia in context of neutropenic fever/AML. Pertinent microbiologic data includes: blood cultures 1 of 2 growing ESBL Klebsiella pneumoniae and 1 of 2 growing coagulase negative staph not lugdunensis (Biofire Staph epidermidis). Vancomycin was originally discontinued on 06/30 and then restarted once cultures showed gram- positive organism. There was no gap in therapy. Renal function stable. Day # 3 of antimicrobial therapy. Gram-positive organism may be contaminant. Reasonable to continue vancomycin at this time given febrile neutropenia. Plan Vancomycin * Current regimen: 1250 mg IV every 12 hours * Random level obtained 07/01/23 resulted as 10.7 mcg/mL. This is predicted to achieve target AUC/DANIEL of 400-600 mg/L.hr * Predicted AUC at steady state: 510 mg/L.hr * Continue 1250 mg IV every 12 hours * Will repeat level in the next 48-72 hours if therapy is continued and/or change in patient clinical status Ertapenem * 1 g IV q24h - appropriate, no change Pharmacy will continue to follow and will adjust dose/frequency as necessary. Thank you. Pharmacy has transitioned to AUC monitoring for vancomycin. AUC/DANIEL is the preferred PK/PD target and is associated with decreased risk of nephrotoxicity compared to traditional trough targets.
--- NOTE | 2023-07-01 13:42 | Hospitalist Progress Note ---
Date of Service July 01, 2023 Assessment & Plan (1) Pancytopenia: (2) Neutropenic fever: (3) AML (acute myelogenous leukemia): (4) Tongue lesion: (5) Atrial fibrillation: (6) Diabetes mellitus, type 2: (7) Hypertension: (8) Hyperlipidemia: Plan This is a 68 yo M with a PMH of relapsed AML with chemotherapy on hold since Apr 2023 2/2 low ANC and low platelet count following with Dr. Killian, DM II, HFrEF, persistent atrial fibrillation no longer on anticoagulation due to pancytopenia, HTN, BPH and other medical problems listed below who presents from home with neutropenic fever. Neutropenic fever AML T: 38.8 C, no clear source. Respiratory viral panel negative, CXR without acute abnormalities, UA, blood cultures drawn from port site, CT chest -no pneumonia or infiltrate Follows with Dr. Killian of [facility] onc, chemotherapy on hold since Apr 2023 2/2 low ANC and low platelet counts, has been requiring ~ weekly platelet transfusion Neutropenic precautions Continue empiric vanco and cefepime Antibiotic were changed to ertapenem given the Bio[employer] plus blood culture results so far and vancomycin was discontinued Later on the blood culture came back positive for gram-positive cocci and vancomycin was added on the same day No more fever but the patient has occasional chills Feeling a little better ID consult awaiting Clinically much better today Pancytopenia WBC 0.10, RBC 2.18, Hgb 6.4 (recent baseline ~ 7-8), Plt 6 (requiring platelet transfusions 1-2x/week to keep plt>10) No acute bleeding noted, although tongue lesion has been bleeding at home every few days, per patient Given 1u platelets and 1u prbcs in ED - repeating CBC with diff this evening Additional platelets and prbc held Discussed with the oncologist-will continue with blood and platelet transfusion Given the neutropenia and possible sepsis will start Neupogen Received 3 units of PRBC and 2 units of platelets so far-white count is elevated to 0.24, hemoglobin 7.2 and platelet 11 Will monitor CBC Tongue lesion Recently was evaluated by [facility] ENT for oral lesion on 06/24/23 and instructed to treat with nystatin swish and swallow BID x 14 D and discontinued decadron rinses Fungal culture of tongue from that appointment is negative to date F/u with Dr. Cummings in 2 weeks and if lesion still present at that time for discussion of biopsy Consulted RD to help optimize nutrition given pain with eating, liquid diet and ADAT, Boost TID PRN Will have lidocaine viscous to control tongue pain and oral pain Tongue pain is much better today Atrial fibrillation Given missed dose of amiodarone, currently rate controlled Continue amiodarone No longer on anticoagulation due to pancytopenia Rate is controlled-on no anticoagulation due to severe thrombocytopenia DM II A1c 7.6 earlier this month Metformin on hold 2/2 causing diarrhea SSI while in-patient BSG AC HS HTN Chronic diastolic heart failure Appears clinically dry, given 1L NSS in ED and will hold today's lasix dose Continue home Eplerenone and Lasix tomorrow based on AM labs and volume status HLD Continue statin Mood disorder Chronic, stable. Continue SSRI DVT Ppx: SCDs, avoid chemical VTE in setting of pancytopenia Code status: FULL PCP: Jacky Dispo: Admitting to PCU Admission and Anticipated Discharge Date Admission Date: June 29, 2023 Subjective 06/30/2023 The patient was seen and examined in telemetry unit He has been complaining of fever with chills for the last 4 or 5 days He has significant pancytopenia and weakness from his illness Has been feeling a little better following blood and platelet transfusion so far 07/01/2023 The patient was seen and examined in telemetry unit He has been feeling little better Denies any fever but he still has a little chills No significant pain Review of Systems Review of Systems: All systems reviewed and are unremarkable except as noted below Physical Exam Physical Exam: Lying in bed comfortably Constitutional: well developed, well nourished, + ill appearing and + obese Eyes: PERRL, conjunctivae normal, anicteric sclerae ENMT: external ear and nose normal, oropharynx normal Neck: trachea midline, no thyromegaly Respiratory: + respiratory distress (Minimal respirat ory distress) Auscultation: + diminished lung sounds and + crackles (Occasional bibasilar crackles) Cardiovascular: Rate/Rhythm: regular rate and regular rhythm; not tachycardic Heart Sounds: normal S1 and normal S2; no murmur Extremities: + edema (Trace to 1+ edema bilaterally) Gastrointestinal (Abdomen): Inspection/Auscultation: normal bowel sounds; abdomen not distended Percussion/Palpation: abdomen soft; abdomen nontender Musculoskeletal: No acute arthritis involving any joint Neurologic: Alert, awake and oriented x 3. No acute arthritis involving any joint Lymphatic: no cervical or axillary lymphadenopathy Results & Data Results & Data Vital Signs (Past 12 Hours) Vital Signs Temp Pulse Pulse Resp BP Pulse Ox O2 Del Method 07/01/23 11:30 37.6 C H 53 L 18 135/74 97 Nasal Cannula 07/01/23 08:18 47 L 07/01/23 08:07 36.7 C 69 18 133/64 91 Room Air 07/01/23 03:00 37.2 C 51 L 16 133/72 97 Nasal Cannula O2 Flow Rate 07/01/23 11:30 2.0 07/01/23 08:18 07/01/23 08:07 07/01/23 03:00 Laboratory Results Short CBC 06/30/23 07/01/23 07/01/23 Range/Units 19:49 00:11 06:51 WBC 0.18 L* 0.18 L* 0.24 L* (4.8-10.8) K/ul Hgb 7.6 L 7.6 L 7.2 L (14.0-18.0) g/dl Hct 21.9 L 21.8 L 20.6 L* (42.0-52.0) % Plt Count 9 L* 14 L* D 11 L* (130-400) K/uL BMP 07/01/23 06:51 Sodium 138 Potassium 3.9 Chloride 103 Carbon Dioxide 27 BUN 16 Creatinine 0.89 Glucose 123 H Calcium 8.0 L Medications Administered Current Inpatient Medications Acetaminophen (Acetaminophen 325 Mg Tab) 650 mg PO Q4H PRN PRN Reason: Mild Pain or Fever Stop: 07/29/23 16:03 Last Admin: 07/01/23 12:31 Dose: 650 mg Acyclovir (Acyclovir 400 Mg Tab) 400 mg PO BID [facility] Stop: 07/29/23 20:59 Last Admin: 07/01/23 08:11 Dose: 400 mg Amiodarone HCl (Amiodarone 200 Mg Tab) 200 mg PO DAILY [facility] Stop: 07/30/23 08:59 Last Admin: 07/01/23 08:13 Dose: 200 mg Amlodipine Besylate (Amlodipine Besylate 5 Mg Tab) 2.5 mg PO DAILY [facility] Stop: 07/30/23 08:59 Last Admin: 07/01/23 08:13 Dose: 2.5 mg Dextrose (Dextrose 50% 50 Ml Syringe) 25 - 50 ml IV UD PRN; Protocol PRN Reason: Hypoglycemia Protocol Stop: 07/29/23 16:07 Escitalopram Oxalate (Escitalopram Oxalate 10 Mg Tab) 10 mg PO DAILY [facility] Stop: 07/30/23 08:59 Last Admin: 07/01/23 08:12 Dose: 10 mg Finasteride (Finasteride 5 Mg Tab) 5 mg PO HS [facility] Stop: 07/29/23 20:59 Last Admin: 06/30/23 20:29 Dose: 5 mg Furosemide (Furosemide 40 Mg Tab) 40 mg PO DAILY [facility] Stop: 07/30/23 08:59 Last Admin: 07/01/23 08:14 Dose: 40 mg Glucagon (Glucagon For Inj 1 Mg Vial) 1 mg SQ UD PRN; Protocol PRN Reason: Hypoglycemia Protocol Stop: 07/29/23 16:07 Glucose (Glucose 10 Tab/Tube) 4 - 8 tab PO UD PRN; Protocol PRN Reason: Hypoglycemia Treatment Stop: 07/29/23 16:07 Glucose (Glucose 40% Gel 15 Gm Tube) 15 - 30 gm PO UD PRN; Protocol PRN Reason: Hypoglycemia Protocol Stop: 07/29/23 16:07 Heparin Sodium (Porcine) (Heparin 100 Unit/Ml 5ml Flush) 5 ml FLUSH PRN PRN PRN Reason: Flush Stop: 07/30/23 12:21 Vancomycin HCl 1,250 mg/ (Sodium Chloride) 275 mls @ 200 mls/hr IV Q12H [facility] Stop: 07/07/23 14:00 Last Admin: 07/01/23 12:28 Dose: 200 mls/hr Ertapenem 1,000 mg/ Syringe 10 mls @ 2 mls/min IV Q24H [facility] Stop: 07/14/23 07:59 Last Admin: 07/01/23 08:11 Dose: 2 mls/min Insulin Aspart (Insulin Aspart Per Unit Charge) 0 units SC ACHS [facility] Stop: 07/29/23 16:29 Last Admin: 07/01/23 12:31 Dose: 4 units Lidocaine HCl (Lidocaine Viscous 2% 15 Ml Udc) 15 ml MT QID PRN PRN Reason: Pain Stop: 07/30/23 12:20 Losartan Potassium (Losartan Potassium 50 Mg Tab) 100 mg PO QAM [facility] Stop: 07/30/23 08:59 Last Admin: 07/01/23 08:12 Dose: 100 mg Miscellaneous (Eplerenone: Order Awaiting Action) 1 each N/A QS [facility] Stop: 07/30/23 00:00 Last Admin: 06/30/23 23:07 Dose: Not Given Miscellaneous (Cresemba 186 Mg: Order Awaiting Action) 1 each N/A QS [facility] Stop: 07/30/23 00:00 Last Admin: 06/30/23 23:07 Dose: Not Given Miscellaneous (Carbohydrates For Hypoglycemia ) 15 - 30 gm PO UD PRN PRN Reason: Hypoglycemia Protocol Stop: 07/29/23 16:07 Miscellaneous Information (Vancomycin Consult Active) 1 each N/A UD PRN PRN Reason: Consult Stop: 07/30/23 15:18 Multi-Ingredient Mouthwash/Gargle (First - Mouthwash Blm 119 Ml) 5 ml PO BID PRN PRN Reason: sore mouth Stop: 07/30/23 20:59 Last Admin: 07/01/23 01:30 Dose: 5 ml Multivitamins/Minerals (Cerovite Adv Formula Tab) [facility] [place]: 07/30/23 08:59 Last Admin: 07/01/23 08:12 Dose: 1 tab Nystatin (Nystatin Susp 500,000 U/5 Ml Ud) 5 ml PO BID [facility] Stop: 07/09/23 20:59 Last Admin: 07/01/23 08:15 Dose: 5 ml Ondansetron HCl (Ondansetron Inj 2 Mg/Ml 2 Ml Vial) 4 mg IV Q6H PRN PRN Reason: Nausea Stop: 07/29/23 16:03 Oxycodone HCl (Oxycodone Hcl Ir 5 Mg Tab (Immediate Release)) 5 mg PO Q8H PRN PRN Reason: Moderate to Severe Pain Stop: 07/13/23 16:03 Last Admin: 06/30/23 18:24 Dose: 5 mg Pantoprazole Sodium (Pantoprazole 40 Mg Tab) 40 mg PO QAM [facility] Stop: 07/30/23 08:59 Last Admin: 07/01/23 08:13 Dose: 40 mg Polyethylene Glycol (Polyethylene (Miralax) 17 Gm Pack) 17 gm PO DAILY PRN PRN Reason: Constipation Stop: 07/29/23 16:03 Potassium Chloride (Potassium Chloride 10 Meq Tabcr) 10 meq PO DAILY [facility] Stop: 07/30/23 08:59 Last Admin: 07/01/23 08:35 Dose: 10 meq Rosuvastatin Calcium (Rosuvastatin Calcium 10 Mg Tab) 10 mg PO QAM [facility] Stop: 07/30/23 08:59 Last Admin: 07/01/23 08:14 Dose: 10 mg Tamsulosin HCl (Tamsulosin Hcl 0.4 Mg Cap) 0.4 mg PO HS [facility] Stop: 07/29/23 20:59 Last Admin: 06/30/23 20:30 Dose: 0.4 mg (5) Atrial fibrillation Atrial fibrillation type: unspecified Qualified Code(s): I48.91 - Unspecified atrial fibrillation
[2023-07-01] MEDS: oxyCODONE HCL IR 5 MG TAB (IMMEDIATE RELEASE) PO PRN (14:21)
[2023-07-01] MEDS ORDERED: EPLERENONE 25 MG PO SCH (20:00)
[2023-07-01] MEDS: FINASTERIDE 5 MG TAB PO SCH (20:37)
[2023-07-01] MEDS: TAMSULOSIN HCL 0.4 MG CAP PO SCH (20:37)
[2023-07-02 07:48] LABS: Hematocrit (blood only) 24.5 % (42.0-52.0); Hemoglobin 8.5 g/dl (14.0-18.0); Mean Corpuscular Hemoglobin 29.7 pg (25.0-34.0); Mean Corpuscular Hgb Conc 34.7 g/dL (32.0-36.0); Mean Corpuscular Volume 85.7 fL (80.0-100.0); Mean Platelet Volume 10.2 fL (9.4-12.4); Platelet Count 11 K/uL (130-400); RDW Coefficient of Variation 13.6 % (11.5-14.5); RDW Standard Deviation 42.6 fL (36.4-46.3); Red Blood Count 2.86 M/uL (4.70-6.10); White Blood Count 0.35 K/ul (4.8-10.8)
[2023-07-02 08:11] LABS: Albumin Level 3.1 gm/dl (3.4-5.0); BUN Creatinine Ratio 19.3 (10-20); Bilirubin,Total 0.5 mg/dl (0.2-1.0); Calcium 8.3 mg/dl (8.6-10.3); Creatinine Clr Calc Pharmacy 94.4 ml/min; Est GFR (African American) 101.6 ml/min; Est GFR (Non-African American) 87.6 ml/min; Phosphorus 3.2 mg/dl (2.5-4.9); Potassium 3.9 mmol/L (3.5-5.1); Total Protein 6.1 gm/dl (6.0-8.3)
[2023-07-02] MEDS: ACYCLOVIR 400 MG TAB PO SCH ×2 (08:49→20:42)
[2023-07-02] MEDS: amLODIPine BESYLATE 5 MG TAB PO SCH (08:49)
[2023-07-02] MEDS: AMIODARONE 200 MG TAB PO SCH (08:50)
[2023-07-02] MEDS: ESCITALOPRAM OXALATE 10 MG TAB PO SCH (08:50)
[2023-07-02] MEDS: PANTOprazole 40 MG TAB PO SCH (08:50)
[2023-07-02] MEDS: LOSARTAN POTASSIUM 50 MG TAB PO SCH (08:50)
[2023-07-02] MEDS: ROSUVASTATIN CALCIUM 10 MG TAB PO SCH (08:51)
[2023-07-02] MEDS: FUROSEMIDE 40 MG TAB PO SCH (08:51)
[2023-07-02] MEDS: NYSTATIN SUSP 500,000 U/5 ML UDC PO SCH ×2 (08:51→20:42)
[2023-07-02] MEDS: CEROVITE ADV FORMULA TAB PO SCH (08:51)
[2023-07-02] MEDS: ISAVUCONAZONIUM SULFATE 186 MG PO SCH (08:52)
[2023-07-02] MEDS: EPLERENONE 25 MG PO SCH (08:53)
[2023-07-02] MEDS: INSULIN ASPART PER UNIT CHARGE SC SCH ×4 (08:55→20:37)
[2023-07-02] MEDS ORDERED: EPLERENONE 25 MG PO SCH (09:00)
[2023-07-02] MEDS ORDERED: ISAVUCONAZONIUM SULFATE 186 MG PO SCH (09:00)
[2023-07-02] MEDS: ERTAPENEM SODIUM 1,000 MG in SYRINGE 0 ML IV SCH (09:04)
[2023-07-02] MEDS: POTASSIUM CHLORIDE 10 MEQ TABCR PO SCH (09:04)
[2023-07-02] MEDS: VANCOMYCIN HCL 1,250 MG in SODIUM CHLORIDE 0.9% 250 ML IV SCH ×2 (12:49→23:21)
[2023-07-02] MEDS: ACETAMINOPHEN 325 MG TAB PO PRN ×2 (14:23→20:42)
--- NOTE | 2023-07-02 15:38 | Hospitalist Progress Note ---
Date of Service July 02, 2023 Assessment & Plan (1) Pancytopenia: (2) Neutropenic fever: (3) AML (acute myelogenous leukemia): (4) Tongue lesion: (5) Atrial fibrillation: (6) Diabetes mellitus, type 2: (7) Hypertension: (8) Hyperlipidemia: Plan This is a 68 yo M with a PMH of relapsed AML with chemotherapy on hold since Apr 2023 2/2 low ANC and low platelet count following with Dr. Killian, DM II, HFrEF, persistent atrial fibrillation no longer on anticoagulation due to pancytopenia, HTN, BPH and other medical problems listed below who presents from home with neutropenic fever. Neutropenic fever AML T: 38.8 C, no clear source. Respiratory viral panel negative, CXR without acute abnormalities, UA, blood cultures drawn from port site, CT chest -no pneumonia or infiltrate Follows with Dr. Killian of [facility] onc, chemotherapy on hold since Apr 2023 2/2 low ANC and low platelet counts, has been requiring ~ weekly platelet transfusion Neutropenic precautions Originally on empiric vanco and cefepime, one blood culture grew ESBL K pneum oniae, another coag neg staph ID consult 07/02- appreciate recs -discontinue Vanc, continue Ertapenem -obtain repeat blood cultures, one from port and one peripheral -continue prophylactic fungal and viral meds -consider ENT for tongue biopsy Clinically stable Pancytopenia WBC 0.10, RBC 2.18, Hgb 6.4 (recent baseline ~ 7-8), Plt 6 (requiring platelet transfusions 1-2x/week to keep plt>10) No acute bleeding noted, although tongue lesion has been bleeding at home every few days, per patient Given 1u platelets and 1u prbcs in ED - was transfused Given the neutropenia and possible sepsis, was started on Neupogen Received 3 units of PRBC and 2 units of platelets so far monitor CBC Tongue lesion Recently was evaluated by [facility] ENT for oral lesion on 06/24/23 and instructed to treat with nystatin swish and swallow BID x 14 D and discontinued decadron rinses Fungal culture of tongue from that appointment is negative to date F/u with Dr. Cummings in 2 weeks and if lesion still present at that time for discussion of biopsy Consulted RD to help optimize nutrition given pain with eating, liquid diet and ADAT, Boost TID PRN Will have lidocaine viscous to control tongue pain and oral pain Monitor Atrial fibrillation Given missed dose of amiodarone, currently rate controlled Continue amiodarone No longer on anticoagulation due to pancytopenia Stable DM II A1c 7.6 earlier this month Metformin on hold 2/ causing diarrhea SSI while in-patient BSG AC HS HTN Chronic diastolic heart failure Appeared clinically dry, given 1L NSS in ED Continue home Eplerenone and Lasix HLD Continue statin Mood disorder Chronic, stable. Continue SSRI DVT Ppx: SCDs, avoid chemical VTE in setting of pancytopenia Code status: FULL PCP: Jacky Dispo: Admitting to PCU Admission and Anticipated Discharge Date Admission Date: June 29, 2023 Subjective Pt seen in the AM. Stated that he was still having fevers and chills occasionally. Eating and drinking. Still having bloody stools. Review of Systems Review of Systems: All systems reviewed & are unremarkable except as noted in Subjective Physical Exam Physical Exam: General: Alert, oriented. No acute distress Skin: No noted rashes or bruises Psych: Appropriate mood and affect Neuro: weak HEENT: NC/AT Chest: Nontender to palpation. CV: RRR, Resp: Breath sounds clear bilaterally, no increased effort of breathing. Abdomen: Soft, nontender, nondistended. Extremities: No edema in lower extremities bilaterally. Results & Data Results & Data Vital Signs (Past 12 Hours) Vital Signs Temp Pulse Pulse Resp BP Pulse Ox O2 Del Method 07/02/23 11:27 36.9 C 69 18 136/72 95 Room Air 07/02/23 07:33 54 L (5) Atrial fibrillation Atrial fibrillation type: unspecified Qualified Code(s): I48.91 - Unspecified atrial fibrillation
--- NOTE | 2023-07-02 17:09 | Infectious Disease Consult ---
Date of Service July 02, 2023 Telehealth Information I performed this visit using a real-time telehealth connection between my location and the patients location ([facility]). After connecting through interactive tele-video, patient was identified by name and date of and/or wristband check.Patient (or authorized healthcare access representative) was informed that this was a telemedicine visit and it was being conducted confidentially over secure lines. My office door was closed and no one else was present in the room with me.Patient (or authorized healthcare access representative) provided consent to proceed with the visit, expressed an understanding of privacy and security of the telemedicine visit, and gave permission to have a hospital access representative in the room in order to assist with the visit and to conduct portions of the visit, as needed. I informed the patient (or authorized healthcare access representative) that I reviewed their record and presented the opportunity for them to ask any questions regarding the visit today. The patient agreed to participate. Assessment & Plan (1) Neutropenic fever: (2) Bacteremia due to Klebsiella pneumoniae: (3) Tongue lesion: (4) Pancytopenia: (5) AML (acute myeloid leukemia) in relapse: Plan - I think ertapenem is very reasonable for now. I would recommend stopping Vancomycin. - Patient mentioned that he was on Levaquin (which is active against the ESBL klebsiella growing int he blood) for prophylaxis prior to the current illness, which makes me wonder whether there is a source control issue here. My only concerns will be IV port infection, therefore, I would recommend to obtain 2 sets of blood Cx today if possible (one peripheral and one from IV port). If the cultures were still pos especially the one from the port then he might require lock therapy. - Please continue on prophylactic isavuconazole and Acyclovir. - I would recommend consulting ENT to readdress the tongue lesion and assess the need for biopsy. - Thank you for consulting ID. We will continue to follow. History of Present Illness History of Present Illness 68-year-old man with medical history of relapsed AML, not on chemotherapy since April 2023 because of persistent pancytopenia), type 2 diabetes, heart failure with reduced ejection fraction, persistent A-fib, HTN, and BPH who was admitted to [facility] on 06/29 because of fever and chills. She mentioned that around 4 days prior to presentation, he started having generalized fatigue which was associated with high fever and chills which prompted him to come to the emergency department. He also mentioned that he bit his tongue around 2 weeks ago and has been having pain lesion and pain in that area and was concerned that might have been causing the current illness. He was seen by ENT for that lesion on 06/24 and was advised to use nystatin swish and swallow. On presentation, he was febrile at 38.8 and tachycardic at around 96; otherwise the rest of his vitals were within normal limits. CT scan of the abdomen and pelvis as well as of the chest was performed which showed no acute abnormalities except for diverticulosis (but no diverticulitis), nonobstructive nephrolithiasis with no acute abnormalities in the chest except for pulmonary hypertension and mild cardiomegaly. His blood work-up showed leukopenia around 0.1, hemoglobin of 6.4 and platelets of around 6. His chemistry was not that impressive except for elevated blood sugar, slightly elevated alkaline phosphatase and low albumin of 3.2. Shortly after admission, his blood culture came back positive for Klebsiella pneumoniae identified via [employer] with positive CTX M gene. ID team was consulted for further recommendations and to help with the management of febrile neutropenia and Klebsiella bacteremia. Allergies Allergy/AdvReac Type Severity Reaction Status Date / Time bee venom protein (honey bee) Allergy Mild SWELLING Verified 06/25/23 10:23 hydrocodone AdvReac Unknown NAUSEA Verified 06/25/23 10:23 nitrofurantoin AdvReac Headache Verified 06/25/23 10:23 Home Medications Medication Instructions Recorded Confirmed Type finasteride 5 mg tablet 5 mg PO HS 09/18/18 06/29/23 History omeprazole 20 mg capsule,delayed 20 mg PO QAM 05/08/21 06/29/23 History release rosuvastatin 10 mg tablet 10 mg PO QAM 05/08/21 06/29/23 History losartan 100 mg tablet 100 mg PO QAM 05/10/21 06/29/23 History tamsulosin 0.4 mg capsule (Flomax) 4 mg PO HS 05/10/21 06/29/23 History acyclovir 400 mg tablet 400 mg PO BID 01/27/22 06/29/23 History multivitamin with minerals 1 tab PO QAM 01/27/22 06/29/23 History ondansetron 4 mg disintegrating 4 mg translingual Q6 PRN Nausea 02/05/22 06/29/23 History tablet furosemide 40 mg tablet 40 mg PO DAILY #30 tabs 02/08/22 06/29/23 Rx potassium chloride 10 mEq 10 meq PO DAILY #30 tabs 02/08/22 06/29/23 Rx tablet,extended release(part/cryst) eplerenone 25 mg tablet 25 mg PO DAILY 11/29/22 06/29/23 History tadalafil 5 mg tablet 5 mg PO DAILY PRN Muscle Pain 11/29/22 06/29/23 History cefpodoxime 200 mg tablet 400 mg PO BID 12/09/22 06/29/23 History escitalopram oxalate 10 mg tablet 10 mg PO DAILY 12/09/22 06/29/23 History isavuconazonium sulfate 186 mg 372 mg PO BID 12/09/22 06/29/23 History capsule (Cresemba) sildenafil 0 mg PO DIRECTED PRN Sexual 12/09/22 06/29/23 History Activity venetoclax 100 mg tablet 200 mg PO BID 12/09/22 06/29/23 History (Venclexta) amiodarone 200 mg tablet 200 mg PO DAILY 12/31/22 06/29/23 History amlodipine 2.5 mg tablet 2.5 mg PO DAILY 12/31/22 06/29/23 History metformin 500 mg tablet,extended 1,000 mg PO BID 12/31/22 06/29/23 History release 24 hr nystatin 100,000 unit/mL oral 5 ml PO BID 06/25/23 06/29/23 History suspension oxycodone 5 mg tablet 5 mg PO Q8H PRN Pain 06/25/23 06/29/23 History Patient History Medical History AML (acute myeloblastic leukemia) Enlargement of aortic root Follows with Dr. Sibley Per December 2019 ECHO - Aortic root and proximal ascending aorta are mildly enlarged (4.3/4.1 cm respectively) Diabetes mellitus, type 2 DENIES NEUROPATHY History of melanoma PAST HISTORY GERD (gastroesophageal reflux disease) Hypertension Hyperlipidemia Atrial fibrillation Paroxysmal - very rare Per 09/21/20 cardio note- had a fib episode February 2020 after shingles vaccine and Jun 2020 - both episodes lasted several hours- resolved after taking Flecainide as prescribed (takes PRN per cardio instructions) [id number] score =3 for risk factors of age of 64, HTN, and DM2 per cardio records- patient not on AC secondary to bleeding complications in the past (Next cardio visit Sep 2021) Surgical History History of removal of cyst off finger History of colonoscopy History of cataract surgery bilt History of biopsy of bladder History of melanoma excision Family History (Updated 06/29/23 @ 15:18 by Fabienne Larsen PA-C) Other Hypertension No family history of adverse response to anesthesia Social History Smoking Status: Former smoker Cigarettes Per Day: QUIT IN 1987; Second Hand Exposure: No; Do You Dip or Chew Tobacco: No; Tobacco Cessation Education Requested by Patient: No Hx Alcohol Use: No Hx Substance Use: No Preferred Language: Zambian Communication Ability: Effective Merchandising Coordinator Required: No Beliefs That Will Affect Care: None marital status: Current Living Situation: Spouse How many Children do You have: 1 Other Information That Helps Us Care for You: No Feels Safe at Home: Yes Safety Concerns: Feels Safe At This Time Assistive Devices: None Assistive Devices Comment: At home Review of Systems Constitutional: Fatigue, fever and chills. HEENT: Rt oral lesion with pain Cardiovascular: no chest pain, or palpitations Respiratory: no shortness of breath, no cough Gastrointestinal: No abdominal pain or diarrhea. No nausea, vomiting : No dysuria or hesitancy, no urinary discharge Musculoskeletal/Skin: No muscle aches or rash Neurologic: no dizziness or headache Physical Exam Couldn't be performed as the consult was conducted via telemed. Results & Data Vital Signs (Past 12 Hours) Vital Signs Temp Pulse Pulse Resp BP Pulse Ox O2 Del Method 07/02/23 16:28 37.0 C 56 L 18 129/69 92 Room Air 07/02/23 11:27 36.9 C 69 18 136/72 95 Room Air 07/02/23 07:33 54 L Laboratory Results 06/29: 104 bottles of blood cultures growing coagulase-negative staph 06/29: 204 bottles of blood cultures growing ESBL Klebsiella pneumoniae Diagnostic Findings Ct abd/pelvis on 06/29: 1. No acute abnormalities are seen. 2. Diverticulosis without diverticulitis. 3. Nonobstructive nephrolithiasis.
[2023-07-02] MEDS: FINASTERIDE 5 MG TAB PO SCH (20:42)
[2023-07-02] MEDS: TAMSULOSIN HCL 0.4 MG CAP PO SCH (20:42)
[2023-07-03] MEDS: ACETAMINOPHEN 325 MG TAB PO PRN ×2 (03:10→11:02)
[2023-07-03 08:31] LABS: Albumin Globulin Ratio 1.1 (0.9-2); BUN Creatinine Ratio 17.1 (10-20); Bilirubin,Total 0.5 mg/dl (0.2-1.0); Creatinine Clr Calc Pharmacy 100.7 ml/min; Est GFR (African American) 107.9 ml/min; Est GFR (Non-African American) 93.1 ml/min; Globulin 2.7 gm/dl (2.5-4.0); Phosphorus 3.2 mg/dl (2.5-4.9); Potassium 3.5 mmol/L (3.5-5.1); Total Protein 5.7 gm/dl (6.0-8.3)
[2023-07-03 08:43] LABS: Mean Corpuscular Hemoglobin 30.4 pg (25.0-34.0); Mean Corpuscular Hgb Conc 36.1 g/dL (32.0-36.0); Mean Corpuscular Volume 84.2 fL (80.0-100.0); Mean Platelet Volume 9.3 fL (9.4-12.4); Platelet Count 6 K/uL (130-400); RDW Coefficient of Variation 13.3 % (11.5-14.5); RDW Standard Deviation 41.8 fL (36.4-46.3); Red Blood Count 2.47 M/uL (4.70-6.10); White Blood Count 0.29 K/ul (4.8-10.8)
--- NOTE | 2023-07-03 08:54 | Hospitalist Progress Note ---
Date of Service July 03, 2023 Assessment & Plan (1) Pancytopenia: (2) Neutropenic fever: (3) AML (acute myelogenous leukemia): (4) Tongue lesion: (5) Atrial fibrillation: (6) Diabetes mellitus, type 2: (7) Hypertension: (8) Hyperlipidemia: Plan This is a 68 yo M with a PMH of relapsed AML with chemotherapy on hold since Apr 2023 2/2 low ANC and low platelet count following with Dr. Killian, DM II, HFrEF, persistent atrial fibrillation no longer on anticoagulation due to pancytopenia, HTN, BPH and other medical problems listed below who presents from home with neutropenic fever. Neutropenic fever AML T: 38.8 C, no clear source. Respiratory viral panel negative, CXR without acute abnormalities, UA, blood cultures drawn from port site, CT chest -no pneumonia or infiltrate Follows with Dr. Killian of [facility] onc, chemotherapy on hold since Apr 2023 2/2 low ANC and low platelet counts, has been requiring ~ weekly platelet transfusion Neutropenic precautions Originally on empiric vanco and cefepime, one blood culture grew ESBL K pneum oniae, another coag neg staph ID consult 07/02- appreciate recs -discontinue Vanc, continue Ertapenem -obtain repeat blood cultures, one from port and one peripheral -continue prophylactic fungal and viral meds -consider ENT for tongue biopsy 07/03- pt with fever again later in the day, received a platelet transfusion earlier, vancomycin discontinued yesterday, currently on Ertapenem. Infectious workup ordered once more (biofire, chest xray, urine, c diff). Blood Cx drawn last night, repeat ordered once more now that he is spiking fevers again. Re- started on Vancomycin. Oncology consulted earlier in the day with persistent low counts requiring transfusion- appreciate recs. ID currently on board-will contact once more in AM. Pancytopenia WBC 0.10, RBC 2.18, Hgb 6.4 (recent baseline ~ 7-8), Plt 6 (requiring platelet transfusions 1-2x/week to keep plt>10) No acute bleeding noted, although tongue lesion has been bleeding at home every few days, per patient Given 1u platelets and 1u prbcs in ED - was transfused Given the neutropenia and possible sepsis, was started on Neupogen Received 3 units of PRBC and 2 units of platelets so far monitor CBC 07/03- platelets <10, platelet transfusion ordered. Oncology consulted earlier in the day with persistent low counts requiring transfusion- appreciate recs. Tongue lesion [facility]23 and instructed to treat with nystatin swish and swallow BID x 14 D and discontinued decadron rinses Fungal culture of tongue from that appointment is negative to date F/u with Dr. Cummings in 2 weeks and if lesion still present at that time for discussion of biopsy Consulted RD to help optimize nutrition given pain with eating, liquid diet and ADAT, Boost TID PRN Will have lidocaine viscous to control tongue pain and oral pain Monitor Per ID consider ENT consult for biopsy Atrial fibrillation Given missed dose of amiodarone, currently rate controlled Continue amiodarone No longer on anticoagulation due to pancytopenia Stable DM II A1c 7.6 earlier this month Metformin on hold 09/05 causing diarrhea SSI while in-patient BSG AC HS HTN Chronic diastolic heart failure Appeared clinically dry, given 1L NSS in ED Continue home Eplerenone and Lasix HLD Continue statin Mood disorder Chronic, stable. Continue SSRI DVT Ppx: SCDs, avoid chemical VTE in setting of pancytopenia Code status: FULL PCP: Jacky Dispo: Admitting to PCU Admission and Anticipated Discharge Date Admission Date: June 29, 2023 Subjective Pt seen in the AM. Stated that he was still having fevers and chills occasionally. Eating and drinking. Later notified by nursing that pt spiking fevers again, feeling tired. Review of Systems Review of Systems: All systems reviewed & are unremarkable except as noted in Subjective Physical Exam Physical Exam: General: Alert, oriented. No acute distress Skin: No noted rashes or bruises Psych: Appropriate mood and affect Neuro: weak HEENT: NC/AT Chest: Nontender to palpation. CV: RRR, Resp: Breath sounds clear bilaterally, no increased effort of breathing. Abdomen: Soft, nontender, nondistended. Extremities: No edema in lower extremities bilaterally. Results & Data Results & Data Vital Signs (Past 12 Hours) Vital Signs Temp Pulse Pulse Resp BP Pulse Ox Pulse Ox 07/03/23 07:25 62 07/03/23 07:21 37.3 C 57 L 17 137/73 94 07/03/23 04:07 36.6 C 65 18 145/84 H 94 11/30/23 00:49 36.7 C 55 L 17 136/74 91 07/02/23 22:10 07/02/23 21:00 93 O2 Del Method O2 Del Method O2 Flow Rate 07/03/23 07:25 07/03/23 07:21 Room Air 07/03/23 04:07 Room Air 07/03/23 00:49 Room Air 07/02/23 22:10 Nasal Cannula 3 07/02/23 21:00 Room Air (5) Atrial fibrillation Atrial fibrillation type: unspecified Qualified Code(s): I48.91 - Unspecified atrial fibrillation
[2023-07-03] MEDS: ROSUVASTATIN CALCIUM 10 MG TAB PO SCH (08:58)
[2023-07-03] MEDS: FUROSEMIDE 40 MG TAB PO SCH (08:58)
[2023-07-03] MEDS: NYSTATIN SUSP 500,000 U/5 ML UDC PO SCH ×2 (08:58→22:14)
[2023-07-03] MEDS: LOSARTAN POTASSIUM 50 MG TAB PO SCH (08:58)
[2023-07-03] MEDS: CEROVITE ADV FORMULA TAB PO SCH (08:58)
[2023-07-03] MEDS: ACYCLOVIR 400 MG TAB PO SCH ×2 (08:58→22:14)
[2023-07-03] MEDS: amLODIPine BESYLATE 5 MG TAB PO SCH (08:58)
[2023-07-03] MEDS: ERTAPENEM SODIUM 1,000 MG in SYRINGE 0 ML IV SCH (08:58)
[2023-07-03] MEDS: ESCITALOPRAM OXALATE 10 MG TAB PO SCH (08:58)
[2023-07-03] MEDS: PANTOprazole 40 MG TAB PO SCH (08:58)
[2023-07-03] MEDS: AMIODARONE 200 MG TAB PO SCH (08:58)
[2023-07-03] MEDS: EPLERENONE 25 MG PO SCH (08:59)
[2023-07-03] MEDS: ISAVUCONAZONIUM SULFATE 186 MG PO SCH (09:00)
[2023-07-03] MEDS: INSULIN ASPART PER UNIT CHARGE SC SCH ×4 (09:04→20:52)
[2023-07-03] MEDS: POTASSIUM CHLORIDE 10 MEQ TABCR PO SCH (09:05)
[2023-07-03 09:07] LABS: Hematocrit (blood only) 20.8 % (42.0-52.0); Hemoglobin 7.5 g/dl (14.0-18.0)
[2023-07-03] MEDS ORDERED: SODIUM CHLORIDE 0.9% 250 ML IV PRN ×2 (13:14→20:37)
[2023-07-03] MEDS ORDERED: VANCOMYCIN CONSULT ACTIVE PRN (18:03)
[2023-07-03] MEDS ORDERED: VANCOMYCIN HCL 1,500 MG in SODIUM CHLORIDE 0.9% 500 ML IV SCH (18:15)
[2023-07-03] MEDS: VANCOMYCIN HCL 1,250 MG in SODIUM CHLORIDE 0.9% 250 ML IV SCH (18:48)
--- NOTE | 2023-07-03 19:35 | Pharmacy Report ---
Pharmacy PK ABX Note - Date of Service July 03, 2023 - Assessment and Plan Assessment 07/03: * Vancomycin d/c this AM, however restarted again this evening for fever. Last vancomycin dose was last night at midnight - estimate vancomycin level closer to ~10 mcg/ml, will resume previous dosing of vancomycin that resulted in target AUC/DANIEL 07/01: 68 year old M receiving vancomycin and ertapenem for treatment of bacteremia in context of neutropenic fever/AML. Pertinent microbiologic data includes: blood cultures 1 of 2 growing ESBL Klebsiella pneumoniae and 1 of 2 growing coagulase negative staph not lugdunensis (Biofire Staph epidermidis). Vancomycin was originally discontinued on 06/30 and then restarted once cultures showed gram- positive organism. There was no gap in therapy. Renal function stable. Day # 3 of antimicrobial therapy. Gram-positive organism may be contaminant. Reasonable to continue vancomycin at this time given febrile neutropenia. Plan Vancomycin * Resume vancomycin 1250 mg iv q 12 hours this evening. Will plan to check another random level in next 2-3 days if continued Ertapenem * 1 g IV q24h - appropriate, no change Pharmacy will continue to follow and will adjust dose/frequency as necessary. Thank you. Pharmacy has transitioned to AUC monitoring for vancomycin. AUC/DANIEL is the preferred PK/PD target and is associated with decreased risk of nephrotoxicity compared to traditional trough targets.
[2023-07-03 20:30] LABS: Hematocrit (blood only) 19.8 % (42.0-52.0); Hemoglobin 6.8 g/dl (14.0-18.0)
[2023-07-03 20:31] LABS: Mean Corpuscular Hemoglobin 29.4 pg (25.0-34.0); Mean Corpuscular Hgb Conc 34.3 g/dL (32.0-36.0); Mean Corpuscular Volume 85.7 fL (80.0-100.0); Mean Platelet Volume 10.1 fL (9.4-12.4); Platelet Count 12 K/uL (130-400); RDW Coefficient of Variation 13.2 % (11.5-14.5); RDW Standard Deviation 41.7 fL (36.4-46.3); Red Blood Count 2.31 M/uL (4.70-6.10); White Blood Count 0.32 K/ul (4.8-10.8)
[2023-07-03 21:10] LABS: Appearance Urine Clear (Clear); Bacteria Urine Automated Negative (Negative); Bilirubin Urine Negative (Negative); Blood Urine Negative (Negative); Color Urine Yellow; Glucose Urine UA Negative (Negative); Ketones Urine Negative (Negative); Leukocyte Esterase Urine Negative (Negative); Nitrite Urine Negative (Negative); Protein Urine 1+ (Negative); RBC Urine Automated 0-4 /hpf (0-4); Specific Gravity Urine 1.017 (1.000-1.030); Urobilinogen Urine Negative (Negative)
[2023-07-03] MEDS: TAMSULOSIN HCL 0.4 MG CAP PO SCH (22:14)
[2023-07-03] MEDS: FINASTERIDE 5 MG TAB PO SCH (22:14)
[2023-07-04] MEDS: VANCOMYCIN HCL 1,250 MG in SODIUM CHLORIDE 0.9% 250 ML IV SCH (05:14)
--- NOTE | 2023-07-04 07:25 | XRay Report ---
SINGLE VIEW CHEST CLINICAL HISTORY: Fever FINDINGS: An AP, portable, semierect chest radiograph is compared to chest x-ray and chest CT dated 08/29/2022. A right internal jugular central venous infusion port is unchanged in position. The heart is enlarged. There is mild pulmonary vascular congestion. There is chronic elevation of the right hem idiaphragm with bibasilar atelectasis. No large pleural effusion or pneumothorax is seen. The skeleta l structures are osteopenic. The bony thorax is grossly intact. IMPRESSION: 1. Cardiomegaly with mild pulmonary vascular congestion. 2. No airspace consolidation or large pleural effusion is identified. ACT 112: Negative or not required by law. Electronically signed by: Vance Hutton M.D. 07/04/2023 7:24 AM
[2023-07-04 07:41] LABS: Hematocrit (blood only) 23.8 % (42.0-52.0); Hemoglobin 8.1 g/dl (14.0-18.0); Mean Corpuscular Hemoglobin 29.3 pg (25.0-34.0); Mean Corpuscular Volume 86.2 fL (80.0-100.0); Mean Platelet Volume 9.4 fL (9.4-12.4); Platelet Count 9 K/uL (130-400); RDW Coefficient of Variation 13.6 % (11.5-14.5); RDW Standard Deviation 41.6 fL (36.4-46.3); Red Blood Count 2.76 M/uL (4.70-6.10); White Blood Count 0.37 K/ul (4.8-10.8)
[2023-07-04 07:43] LABS: Albumin Globulin Ratio 1.1 (0.9-2); Albumin Level 2.9 gm/dl (3.4-5.0); BUN Creatinine Ratio 14.1 (10-20); Bilirubin,Total 0.6 mg/dl (0.2-1.0); Calcium 7.9 mg/dl (8.6-10.3); Creatinine Clr Calc Pharmacy 106.3 ml/min; Est GFR (African American) 106.7 ml/min; Est GFR (Non-African American) 92.1 ml/min; Globulin 2.7 gm/dl (2.5-4.0); Magnesium 1.9 mg/dl (1.7-2.4); Phosphorus 3.3 mg/dl (2.5-4.9); Potassium 3.6 mmol/L (3.5-5.1); Total Protein 5.6 gm/dl (6.0-8.3)
[2023-07-04] MEDS: INSULIN ASPART PER UNIT CHARGE SC SCH ×4 (08:00→21:52)
[2023-07-04] MEDS: ERTAPENEM SODIUM 1,000 MG in SYRINGE 0 ML IV SCH (08:02)
[2023-07-04] MEDS: ACYCLOVIR 400 MG TAB PO SCH ×2 (08:02→21:51)
[2023-07-04] MEDS: AMIODARONE 200 MG TAB PO SCH (08:03)
[2023-07-04] MEDS: amLODIPine BESYLATE 5 MG TAB PO SCH (08:03)
[2023-07-04] MEDS: ESCITALOPRAM OXALATE 10 MG TAB PO SCH (08:03)
[2023-07-04] MEDS: CEROVITE ADV FORMULA TAB PO SCH (08:03)
[2023-07-04] MEDS: ROSUVASTATIN CALCIUM 10 MG TAB PO SCH (08:03)
[2023-07-04] MEDS: NYSTATIN SUSP 500,000 U/5 ML UDC PO SCH ×2 (08:03→21:51)
[2023-07-04] MEDS: LOSARTAN POTASSIUM 50 MG TAB PO SCH (08:03)
[2023-07-04] MEDS: EPLERENONE 25 MG PO SCH (08:04)
[2023-07-04] MEDS: PANTOprazole 40 MG TAB PO SCH (08:04)
[2023-07-04] MEDS: CALCIUM CITRATE 950 MG TAB PO SCH ×3 (08:04→17:15)
[2023-07-04] MEDS: ISAVUCONAZONIUM SULFATE 186 MG PO SCH (08:04)
[2023-07-04] MEDS: POTASSIUM CHLORIDE 10 MEQ TABCR PO SCH (08:16)
[2023-07-04] MEDS: FUROSEMIDE 40 MG TAB PO SCH (09:08)
[2023-07-04] MEDS: FILGRASTIM 480 MCG/1.6 ML VIAL SC SCH (17:09)
--- NOTE | 2023-07-04 18:31 | Hospitalist Progress Note ---
Date of Service July 04, 2023 Assessment & Plan (1) Pancytopenia: (2) Neutropenic fever: (3) AML (acute myelogenous leukemia): (4) Tongue lesion: (5) Atrial fibrillation: (6) Diabetes mellitus, type 2: (7) Hypertension: (8) Hyperlipidemia: Plan This is a 68 yo M with a PMH of relapsed AML with chemotherapy on hold since Apr 2023 2/2 low ANC and low platelet count following with Dr. Ramos, DM II, HFrEF, persistent atrial fibrillation no longer on anticoagulation due to pancytopenia, HTN, BPH and other medical problems listed below who presents from home with neutropenic fever. Neutropenic fever AML T: 38.8 C, no clear source. Respiratory viral panel negative, CXR without acute abnormalities, UA, blood cultures drawn from port site, CT chest -no pneumonia or infiltrate Follows with Dr. Ramos of [facility] onc, chemotherapy on hold since Apr 2023 2/2 low ANC and low platelet counts, has been requiring ~ weekly platelet transfusion Neutropenic precautions Originally on empiric vanco and cefepime, one blood culture grew ESBL K pneumo niae, another coag neg staph ID consult 07/02- appreciate recs -discontinue Vanc, continue Ertapenem -obtain repeat blood cultures, one from port and one peripheral -continue prophylactic fungal and viral meds -consider ENT for tongue biopsy 07/03- pt with fever again later in the day, received a platelet transfusion earlier, vancomycin discontinued yesterday, currently on Ertapenem. Infectious workup ordered once more (biofire, chest xray, urine, c diff). Blood Cx drawn last night, repeat ordered once more now that he is spiking fevers again. Re- started on Vancomycin. Oncology consulted earlier in the day with persistent low counts requiring transfusion- appreciate recs. ID currently on board-will contact once more in AM. 07/04- Case discussed with Dr. Ramos from oncology. He recommended Neupogen 480mg daily. Also noted that fevers were likely related to platelet transfusion as infectious workup this far has been negative. Continue to monitor. Required transfusion of 1 more unit of platelets today. Pancytopenia WBC 0.10, RBC 2.18, Hgb 6.4 (recent baseline ~ 7-8), Plt 6 (requiring platelet transfusions 1-2x/week to keep plt>10) No acute bleeding noted, although tongue lesion has been bleeding at home every few days, per patient Given 1u platelets and 1u prbcs in ED - was transfused Given the neutropenia and possible sepsis, was started on Neupogen Received 3 units of PRBC and 2 units of platelets so far monitor CBC 07/03- platelets <10, platelet transfusion ordered. Oncology consulted earlier in the day with persistent low counts requiring transfusion- appreciate recs. 07/04- Case discussed with Dr. Ramos from oncology. He recommended Neupogen 480mg daily. ALso noted that fevers were likely related to platelet transfusion as infectious workup this far has been negative. Continue to monitor. Transfused 1 more unit of platelets today. Tongue lesion Recently was evaluated by [facility] ENT for oral lesion on 06/24/23 and instructed to treat with nystatin swish and swallow BID x 14 D and discontinued decadron rinses Fungal culture of tongue from that appointment is negative to date F/u with Dr. Cummings in 2 weeks and if lesion still present at that time for discussion of biopsy Consulted RD to help optimize nutrition given pain with eating, liquid diet and ADAT, Boost TID PRN Will have lidocaine viscous to control tongue pain and oral pain Monitor Per ID consider ENT consult for biopsy Atrial fibrillation Given missed dose of amiodarone, currently rate controlled Continue amiodarone No longer on anticoagulation due to pancytopenia Stable DM II A1c 7.6 earlier this month Metformin on hold 2/2 causing diarrhea SSI while in-patient BSG AC HS HTN Chronic diastolic heart failure Appeared clinically dry, given 1L NSS in ED Continue home Eplerenone and Lasix HLD Continue statin Mood disorder Chronic, stable. Continue SSRI DVT Ppx: SCDs, avoid chemical VTE in setting of pancytopenia Code status: FULL PCP: Jacky Dispo: Admitting to PCU Admission and Anticipated Discharge Date Admission Date: June 29, 2023 Subjective Pt seen with at bedside. Updated about discussion with his oncologist Dr ramos. States that he had no new symptoms, still with occasional chills. Review of Systems Review of Systems: All systems reviewed & are unremarkable except as noted in Subjective Physical Exam Physical Exam: General: Alert, oriented. No acute distress Skin: No noted rashes or bruises Psych: Appropriate mood and affect Neuro: weak HEENT: NC/AT Chest: Nontender to palpation. CV: RRR, Resp: Breath sounds clear bilaterally, no increased effort of breathing. Abdomen: Soft, nontender, nondistended. Extremities: No edema in lower extremities bilaterally. Results & Data Results & Data Vital Signs (Past 12 Hours) Vital Signs Temp Pulse Pulse Resp BP BP Pulse Ox 07/04/23 18:15 37.1 C 74 18 135/77 93 07/04/23 17:06 36.8 C 65 18 147/81 H 91 07/04/23 15:05 36.7 C 76 18 114/68 94 07/04/23 11:34 37.3 C 56 L 18 154/77 H 94 07/04/23 09:24 51 L 07/04/23 08:40 07/04/23 07:09 36.6 C 59 L 18 149/73 H 100 O2 Del Method O2 Flow Rate 07/04/23 18:15 07/04/23 17:06 07/04/23 15:05 Room Air 07/04/23 11:34 Room Air 07/04/23 09:24 07/04/23 08:40 Room Air 07/04/23 07:09 Nasal Cannula 3 (5) Atrial fibrillation Atrial fibrillation type: unspecified Qualified Code(s): I48.91 - Unspecified atrial fibrillation
[2023-07-04] MEDS: VANCOMYCIN HCL 1,500 MG in SODIUM CHLORIDE 0.9% 500 ML IV SCH (19:33)
[2023-07-04] MEDS: ACETAMINOPHEN 325 MG TAB PO PRN (19:33)
[2023-07-04] MEDS: FINASTERIDE 5 MG TAB PO SCH (21:51)
[2023-07-04] MEDS: TAMSULOSIN HCL 0.4 MG CAP PO SCH (21:51)
[2023-07-05] MEDS: ACETAMINOPHEN 325 MG TAB PO PRN ×4 (02:32→21:53)
[2023-07-05] MEDS ORDERED: POTASSIUM CHLORIDE CRTAB 20 MEQ TABCR PO STA (03:28)
[2023-07-05] MEDS ORDERED: MAGNESIUM SULFATE / D5W 1 GM/100 ML BAG IV ONE (03:28)
[2023-07-05] MEDS ORDERED: AMIODARONE 200 MG TAB PO ONE (03:44)
[2023-07-05] MEDS ORDERED: ALBUMIN 25% 25 GM/100 ML VIAL IV ONE (03:45)
[2023-07-05 06:14] LABS: Albumin Globulin Ratio 1.3 (0.9-2); BUN Creatinine Ratio 16.3 (10-20); Bilirubin,Total 0.5 mg/dl (0.2-1.0); Calcium 7.9 mg/dl (8.6-10.3); Creatinine Clr Calc Pharmacy 103.7 ml/min; Est GFR (African American) 105.6 ml/min; Est GFR (Non-African American) 91.1 ml/min; Globulin 2.4 gm/dl (2.5-4.0); Magnesium 2.1 mg/dl (1.7-2.4); Potassium 3.5 mmol/L (3.5-5.1); Total Protein 5.4 gm/dl (6.0-8.3)
[2023-07-05 06:33] LABS: Hematocrit (blood only) 22.1 % (42.0-52.0); Hemoglobin 7.7 g/dl (14.0-18.0); Mean Corpuscular Hemoglobin 29.7 pg (25.0-34.0); Mean Corpuscular Hgb Conc 34.8 g/dL (32.0-36.0); Mean Corpuscular Volume 85.3 fL (80.0-100.0); Mean Platelet Volume 11.5 fL (9.4-12.4); Platelet Count 16 K/uL (130-400); RDW Coefficient of Variation 13.6 % (11.5-14.5); RDW Standard Deviation 42.5 fL (36.4-46.3); Red Blood Count 2.59 M/uL (4.70-6.10); White Blood Count 0.25 K/ul (4.8-10.8)
[2023-07-05 07:36] LABS: Thyroid Stimulating Hormone 1.233 uIu/ml (0.300-4.500)
[2023-07-05] MEDS: INSULIN ASPART PER UNIT CHARGE SC SCH ×4 (08:37→21:47)
[2023-07-05] MEDS: ERTAPENEM SODIUM 1,000 MG in SYRINGE 0 ML IV SCH (09:14)
[2023-07-05] MEDS: CALCIUM CITRATE 950 MG TAB PO SCH ×3 (09:14→18:01)
[2023-07-05] MEDS: VANCOMYCIN HCL 1,500 MG in SODIUM CHLORIDE 0.9% 500 ML IV SCH ×2 (09:14→17:21)
[2023-07-05] MEDS: ACYCLOVIR 400 MG TAB PO SCH ×3 (09:15→20:10)
[2023-07-05] MEDS: NYSTATIN SUSP 500,000 U/5 ML UDC PO SCH ×2 (09:15→20:08)
[2023-07-05] MEDS: ESCITALOPRAM OXALATE 10 MG TAB PO SCH (09:15)
[2023-07-05] MEDS: PANTOprazole 40 MG TAB PO SCH (09:16)
[2023-07-05] MEDS: amLODIPine BESYLATE 5 MG TAB PO SCH (09:16)
[2023-07-05] MEDS: LOSARTAN POTASSIUM 50 MG TAB PO SCH (09:16)
[2023-07-05] MEDS: CEROVITE ADV FORMULA TAB PO SCH (09:16)
[2023-07-05] MEDS: ROSUVASTATIN CALCIUM 10 MG TAB PO SCH (09:17)
[2023-07-05] MEDS: EPLERENONE 25 MG PO SCH (09:17)
[2023-07-05] MEDS: ISAVUCONAZONIUM SULFATE 186 MG PO SCH (09:18)
[2023-07-05] MEDS: FILGRASTIM 480 MCG/1.6 ML VIAL SC SCH (09:29)
--- NOTE | 2023-07-05 11:18 | Hospitalist Progress Note ---
Date of Service July 05, 2023 Assessment & Plan (1) Pancytopenia: (2) Neutropenic fever: (3) AML (acute myelogenous leukemia): (4) Tongue lesion: (5) Atrial fibrillation: (6) Diabetes mellitus, type 2: (7) Hypertension: (8) Hyperlipidemia: Plan This is a 68 yo M with a PMH of relapsed AML with chemotherapy on hold since Apr 2023 2/2 low ANC and low platelet count following with Dr. Killian, DM II, HFrEF, persistent atrial fibrillation no longer on anticoagulation due to pancytopenia, HTN, BPH and other medical problems listed below who presents from home with neutropenic fever. Neutropenic fever AML T: 38.8 C, no clear source. Respiratory viral panel negative, CXR without acute abnormalities, UA, blood cultures drawn from port site, CT chest -no pneumonia or infiltrate Follows with Dr. Killian of [facility] onc, chemotherapy on hold since Apr 2023 2/ low ANC and low platelet counts, has been requiring ~ weekly platelet transfusion Neutropenic precautions Originally on empiric vanco and cefepime, one blood culture grew ESBL K pneumo niae, another coag neg staph ID consult 07/02- appreciate recs -discontinue Vanc, continue Ertapenem -obtain repeat blood cultures, one from port and one peripheral -continue prophylactic fungal and viral meds -consider ENT for tongue biopsy 07/03- pt with fever again later in the day, received a platelet transfusion earlier, vancomycin discontinued yesterday, currently on Ertapenem. Infectious workup ordered once more (biofire, chest xray, urine, c diff). Blood Cx drawn last night, repeat ordered once more now that he is spiking fevers again. Re- started on Vancomycin. Oncology consulted earlier in the day with persistent low counts requiring transfusion- appreciate recs. ID currently on board-will contact once more in AM. 07/04- Case discussed with Dr. Killian from oncology. He recommended Neupogen 480mg daily. Also noted that fevers were likely related to platelet transfusion as infectious workup this far has been negative. Continue to monitor. Required transfusion of 1 more unit of platelets today. 07/05-Blood cultures with NGTD. No transfusion required though wbc trended down. Continue with neupogen, continue with Ertapenem and Vanc Pancytopenia WBC 0.10, RBC 2.18, Hgb 6.4 (recent baseline ~ 7-8), Plt 6 (requiring platelet transfusions 1-2x/week to keep plt>10) No acute bleeding noted, although tongue lesion has been bleeding at home every few days, per patient Given 1u platelets and 1u prbcs in ED - was transfused Given the neutropenia and possible sepsis, was started on Neupogen Received 3 units of PRBC and 2 units of platelets so far monitor CBC 07/03- platelets <10, platelet transfusion ordered. Oncology consulted earlier in the day with persistent low counts requiring transfusion- appreciate recs. 07/04- Case discussed with Dr. Killian from oncology. He recommended Neupogen 480mg daily. Also noted that fevers were likely related to platelet transfusion as infectious workup this far has been negative. Continue to monitor. Transfused 1 more unit of platelets today. 07/05-Blood cultures with NGTD. No transfusion required though wbc trended down. Continue with neupogen, continue with Ertapenem and Vanc Tongue lesion Recently was evaluated by [facility] ENT for oral lesion on 06/24/23 and instructed to treat with nystatin swish and swallow BID x 14 D and discontinued decadron rinses Fungal culture of tongue from that appointment is negative to date F/u with Dr. Cummings in 2 weeks and if lesion still present at that time for discussion of biopsy Consulted RD to help optimize nutrition given pain with eating, liquid diet and ADAT, Boost TID PRN Will have lidocaine viscous to control tongue pain and oral pain Monitor Per ID consider ENT consult for biopsy Atrial fibrillation Given missed dose of amiodarone, currently rate controlled Continue amiodarone No longer on anticoagulation due to pancytopenia Stable DM II A1c 7.6 earlier this month Metformin on hold 2/ causing diarrhea SSI while in-patient BSG AC HS HTN Chronic diastolic heart failure Appeared clinically dry, given 1L NSS in ED Continue home Eplerenone and Lasix HLD Continue statin Mood disorder Chronic, stable. Continue SSRI DVT Ppx: SCDs, avoid chemical VTE in setting of pancytopenia Code status: FULL PCP: Jacky Dispo: Admitting to PCU Admission and Anticipated Discharge Date Admission Date: June 29, 2023 Subjective Pt seen with nurse at bedside. States no change to symptoms. Updated on plan. Review of Systems Review of Systems: All systems reviewed & are unremarkable except as noted in Subjective Physical Exam Physical Exam: General: Alert, oriented. No acute distress Skin: No noted rashes or bruises Psych: Appropriate mood and affect Neuro: weak HEENT: NC/AT Chest: Nontender to palpation. CV: RRR, Resp: Breath sounds clear bilaterally, no increased effort of breathing. Abdomen: Soft, nontender, nondistended. Extremities: No edema in lower extremities bilaterally. Results & Data Results & Data Vital Signs (Past 12 Hours) Vital Signs Temp Pulse Resp BP Pulse Ox O2 Del Method O2 Flow Rate 07/05/23 07:39 36.8 C 56 L 18 114/62 99 Nasal Cannula 2 07/05/23 03:49 37.8 C H 74 22 120/55 L 96 Nasal Cannula 2 (5) Atrial fibrillation Atrial fibrillation type: unspecified Qualified Code(s): I48.91 - Unspecified atrial fibrillation
[2023-07-05] MEDS: FINASTERIDE 5 MG TAB PO SCH (20:08)
[2023-07-05] MEDS: TAMSULOSIN HCL 0.4 MG CAP PO SCH (20:08)
[2023-07-06] MEDS ORDERED: VANCOMYCIN LEVEL ONE (05:30)
[2023-07-06] MEDS: ACETAMINOPHEN 325 MG TAB PO PRN ×3 (06:41→20:25)
[2023-07-06 07:02] LABS: Albumin Globulin Ratio 1.2 (0.9-2); Albumin Level 3.3 gm/dl (3.4-5.0); BUN Creatinine Ratio 15.6 (10-20); Bilirubin,Total 0.6 mg/dl (0.2-1.0); Calcium 8.3 mg/dl (8.6-10.3); Est GFR (African American) 100.6 ml/min; Est GFR (Non-African American) 86.8 ml/min; Globulin 2.7 gm/dl (2.5-4.0); Magnesium 2.2 mg/dl (1.7-2.4); Phosphorus 3.8 mg/dl (2.5-4.9)
[2023-07-06 07:13] LABS: Hemoglobin 8.1 g/dl (14.0-18.0); Mean Corpuscular Hemoglobin 29.2 pg (25.0-34.0); Mean Corpuscular Hgb Conc 33.8 g/dL (32.0-36.0); Mean Corpuscular Volume 86.6 fL (80.0-100.0); Mean Platelet Volume 12.2 fL (9.4-12.4); Platelet Count 11 K/uL (130-400); RDW Coefficient of Variation 13.4 % (11.5-14.5); Red Blood Count 2.77 M/uL (4.70-6.10); White Blood Count 0.35 K/ul (4.8-10.8)
[2023-07-06] MEDS: VANCOMYCIN HCL 1,500 MG in SODIUM CHLORIDE 0.9% 500 ML IV SCH ×2 (07:57→17:31)
[2023-07-06] MEDS: INSULIN ASPART PER UNIT CHARGE SC SCH ×4 (08:03→20:36)
[2023-07-06] MEDS: NYSTATIN SUSP 500,000 U/5 ML UDC PO SCH ×2 (08:09→20:45)
[2023-07-06] MEDS: AMIODARONE 200 MG TAB PO SCH (08:10)
[2023-07-06] MEDS: amLODIPine BESYLATE 5 MG TAB PO SCH (08:10)
[2023-07-06] MEDS: ESCITALOPRAM OXALATE 10 MG TAB PO SCH (08:11)
[2023-07-06] MEDS: CEROVITE ADV FORMULA TAB PO SCH (08:11)
[2023-07-06] MEDS: PANTOprazole 40 MG TAB PO SCH (08:11)
[2023-07-06] MEDS: CALCIUM CITRATE 950 MG TAB PO SCH ×3 (08:11→17:31)
[2023-07-06] MEDS: LOSARTAN POTASSIUM 50 MG TAB PO SCH (08:11)
[2023-07-06] MEDS: ROSUVASTATIN CALCIUM 10 MG TAB PO SCH (08:12)
[2023-07-06] MEDS: ERTAPENEM SODIUM 1,000 MG in SYRINGE 0 ML IV SCH (08:12)
[2023-07-06] MEDS: EPLERENONE 25 MG PO SCH (08:12)
[2023-07-06] MEDS: POTASSIUM CHLORIDE 10 MEQ TABCR PO SCH (08:12)
[2023-07-06] MEDS: FILGRASTIM 480 MCG/1.6 ML VIAL SC SCH (08:14)
[2023-07-06] MEDS: ISAVUCONAZONIUM SULFATE 186 MG PO SCH (08:16)
--- NOTE | 2023-07-06 10:38 | Pharmacy Report ---
Pharmacy PK ABX Note - Date of Service July 06, 2023 - Assessment and Plan Assessment 07/06: Continues on vancomycin/ertapenem. Renal function stable. Day #6 vancomycin. Remains neutropenic. 07/03: * Vancomycin d/c this AM, however restarted again this evening for fever. Last vancomycin dose was last night at midnight - estimate vancomycin level closer to ~10 mcg/ml, will resume previous dosing of vancomycin that resulted in target AUC/DANIEL 07/01: 68 year old M receiving vancomycin and ertapenem for treatment of bacteremia in context of neutropenic fever/AML. Pertinent microbiologic data includes: blood cultures 1 of 2 growing ESBL Klebsiella pneumoniae and 1 of 2 growing coagulase negative staph not lugdunensis (Biofire Staph epidermidis). Vancomycin was originally discontinued on 06/30 and then restarted once cultures showed gram-positive organism. There was no gap in therapy. Renal function stable. Plan Vancomycin * Current regimen: 1500mg IV q12h * Random level this AM, 12.1mcg/mL (~13hr level)- therapeutic. Predicted to achieve ssAUC 583mg/L.hr. * Continue 1500mg IV q12h. * Repeat level in 48-72hr. Pharmacy will continue to follow and will adjust dose/frequency as necessary. Thank you. Pharmacy has transitioned to AUC monitoring for vancomycin. AUC/DANIEL is the preferred PK/PD target and is associated with decreased risk of nephrotoxicity compared to traditional trough targets.
--- NOTE | 2023-07-06 12:35 | Hospitalist Progress Note ---
Date of Service July 06, 2023 Assessment & Plan (1) Pancytopenia: (2) Neutropenic fever: (3) AML (acute myelogenous leukemia): (4) Tongue lesion: (5) Atrial fibrillation: (6) Diabetes mellitus, type 2: (7) Hypertension: (8) Hyperlipidemia: Plan This is a 68 yo M with a PMH of relapsed AML with chemotherapy on hold since Apr 2023 2/2 low ANC and low platelet count following with Dr. Killian, DM II, HFrEF, persistent atrial fibrillation no longer on anticoagulation due to pancytopenia, HTN, BPH and other medical problems listed below who presents from home with neutropenic fever. Neutropenic fever AML T: 38.8 C, no clear source. Respiratory viral panel negative, CXR without acute abnormalities, UA, blood cultures drawn from port site, CT chest -no pneumonia or infiltrate Follows with Dr. Killian of [facility] onc, chemotherapy on hold since Apr 2023 2/2 low ANC and low platelet counts, has been requiring ~ weekly platelet transfusion Neutropenic precautions Originally on empiric vanco and cefepime, one blood culture grew ESBL K pneumo niae, another coag neg staph ID consult 07/02- appreciate recs -discontinue Vanc, continue Ertapenem -obtain repeat blood cultures, one from port and one peripheral -continue prophylactic fungal and viral meds -consider ENT for tongue biopsy 07/03- pt with fever again later in the day, received a platelet transfusion earlier, vancomycin discontinued yesterday, currently on Ertapenem. Infectious workup ordered once more (biofire, chest xray, urine, c diff). Blood Cx drawn last night, repeat ordered once more now that he is spiking fevers again. Re- started on Vancomycin. Oncology consulted earlier in the day with persistent low counts requiring transfusion- appreciate recs. ID currently on board-will contact once more in AM. 07/04- Case discussed with Dr. Killian from oncology. He recommended Neupogen 480mg daily. Also noted that fevers were likely related to platelet transfusion as infectious workup this far has been negative. Continue to monitor. Required transfusion of 1 more unit of platelets today. 07/05-Blood cultures with NGTD. No transfusion required though wbc trended down. Continue with neupogen, continue with Ertapenem and Vanc 07/06- improvement in wbc, platelets decreased. Repeat blood cultures from 07/02 and 07/03 all with NGTD. Continue neupogen, will touch base with Oncology for goal in terms of count numbers for discharge, ID for recs for discharge. Pancytopenia WBC 0.10, RBC 2.18, Hgb 6.4 (recent baseline ~ 7-8), Plt 6 (requiring platelet transfusions 1-2x/week to keep plt>10) No acute bleeding noted, although tongue lesion has been bleeding at home every few days, per patient Given 1u platelets and 1u prbcs in ED - was transfused Given the neutropenia and possible sepsis, was started on Neupogen Received 3 units of PRBC and 2 units of platelets so far monitor CBC 07/03- platelets <10, platelet transfusion ordered. Oncology consulted earlier in the day with persistent low counts requiring transfusion- appreciate recs. 07/04- Case discussed with Dr. Killian from oncology. He recommended Neupogen 480mg daily. Also noted that fevers were likely related to platelet transfusion as infectious workup this far has been negative. Continue to monitor. Transfused 1 more unit of platelets today. 07/05-Blood cultures with NGTD. No transfusion required though wbc trended down. Continue with neupogen, continue with Ertapenem and Vanc 07/06- improvement in wbc, platelets decreased. Repeat blood cultures from 07/02 and 07/03 all with NGTD. Continue neupogen, will touch base with Oncology for goal in terms of count numbers for discharge, ID for recs for discharge. Tongue lesion [facility] on 06/24/23 and instructed to treat with nystatin swish and swallow BID x 14 D and discontinued decadron rinses Fungal culture of tongue from that appointment is negative to date F/u with Dr. Cummings in 2 weeks and if lesion still present at that time for discussion of biopsy Consulted RD to help optimize nutrition given pain with eating, liquid diet and ADAT, Boost TID PRN Will have lidocaine viscous to control tongue pain and oral pain Monitor Per ID consider ENT consult for biopsy Atrial fibrillation Given missed dose of amiodarone, currently rate controlled Continue amiodarone No longer on anticoagulation due to pancytopenia Stable DM II A1c 7.6 earlier this month Metformin on hold 2/2 causing diarrhea SSI while in-patient BSG AC HS HTN Chronic diastolic heart failure Appeared clinically dry, given 1L NSS in ED Continue home Eplerenone and Lasix HLD Continue statin Mood disorder Chronic, stable. Continue SSRI DVT Ppx: SCDs, avoid chemical VTE in setting of pancytopenia Code status: FULL PCP: Jacky Dispo: Admitting to PCU Admission and Anticipated Discharge Date Admission Date: June 29, 2023 Subjective Pt seen in the AM. Discussed labwork and plan. Denied acute concerns. Still having the chills sensation. Review of Systems Review of Systems: All systems reviewed & are unremarkable except as noted in Subjective Physical Exam Physical Exam: General: Alert, oriented. No acute distress Skin: No noted rashes or bruises Psych: Appropriate mood and affect Neuro: weak HEENT: NC/AT Chest: Nontender to palpation. CV: RRR, Resp: Breath sounds clear bilaterally, no increased effort of breathing. Abdomen: Soft, nontender, nondistended. Extremities: No edema in lower extremities bilaterally. Results & Data Results & Data Vital Signs (Past 12 Hours) Vital Signs Temp Pulse Resp BP Pulse Ox O2 Del Method 07/06/23 11:38 37.0 C 63 18 128/74 94 Room Air 07/06/23 08:00 Room Air 07/06/23 07:22 36.9 C 76 18 121/67 92 Room Air 07/06/23 03:34 36.6 C 62 18 126/64 94 Room Air (5) Atrial fibrillation Atrial fibrillation type: unspecified Qualified Code(s): I48.91 - Unspecified atrial fibrillation
[2023-07-06] MEDS: ACYCLOVIR 400 MG TAB PO SCH (20:35)
[2023-07-06] MEDS: TAMSULOSIN HCL 0.4 MG CAP PO SCH (20:45)
[2023-07-06] MEDS: FINASTERIDE 5 MG TAB PO SCH (20:45)
[2023-07-07] MEDS ORDERED: RAPID SEQUENCE INDUCTION BAG ONE (01:01)
[2023-07-07] MEDS: VANCOMYCIN HCL 1,500 MG in SODIUM CHLORIDE 0.9% 500 ML IV SCH ×2 (06:25→17:42)
[2023-07-07] MEDS: INSULIN ASPART PER UNIT CHARGE SC SCH ×4 (07:57→20:24)
[2023-07-07] MEDS: ACETAMINOPHEN 325 MG TAB PO PRN ×2 (07:58→19:46)
[2023-07-07] MEDS: ERTAPENEM SODIUM 1,000 MG in SYRINGE 0 ML IV SCH (07:58)
[2023-07-07 08:02] LABS: Hematocrit (blood only) 23.4 % (42.0-52.0); Mean Corpuscular Hemoglobin 29.7 pg (25.0-34.0); Mean Corpuscular Hgb Conc 34.2 g/dL (32.0-36.0); Platelet Count 5 K/uL (130-400); RDW Coefficient of Variation 13.4 % (11.5-14.5); RDW Standard Deviation 42.5 fL (36.4-46.3); Red Blood Count 2.69 M/uL (4.70-6.10); White Blood Count 0.51 K/ul (4.8-10.8)
[2023-07-07 08:24] LABS: Albumin Globulin Ratio 1.1 (0.9-2); Albumin Level 3.2 gm/dl (3.4-5.0); BUN Creatinine Ratio 15.7 (10-20); Bilirubin,Total 0.7 mg/dl (0.2-1.0); Calcium 8.3 mg/dl (8.6-10.3); Est GFR (African American) 101.1 ml/min; Est GFR (Non-African American) 87.2 ml/min; Globulin 2.8 gm/dl (2.5-4.0); Magnesium 2.1 mg/dl (1.7-2.4); Phosphorus 2.9 mg/dl (2.5-4.9); Potassium 4.1 mmol/L (3.5-5.1)
[2023-07-07] MEDS: ACYCLOVIR 400 MG TAB PO SCH ×2 (08:36→19:46)
[2023-07-07] MEDS: FILGRASTIM 480 MCG/1.6 ML VIAL SC SCH (08:37)
[2023-07-07] MEDS: ISAVUCONAZONIUM SULFATE 186 MG PO SCH (08:37)
[2023-07-07] MEDS: AMIODARONE 200 MG TAB PO SCH (08:37)
[2023-07-07] MEDS: NYSTATIN SUSP 500,000 U/5 ML UDC PO SCH ×2 (08:37→19:46)
[2023-07-07] MEDS: CALCIUM CITRATE 950 MG TAB PO SCH ×3 (08:37→17:43)
[2023-07-07] MEDS: ROSUVASTATIN CALCIUM 10 MG TAB PO SCH (08:37)
[2023-07-07] MEDS: LOSARTAN POTASSIUM 50 MG TAB PO SCH (08:37)
[2023-07-07] MEDS: ESCITALOPRAM OXALATE 10 MG TAB PO SCH (08:37)
[2023-07-07] MEDS: amLODIPine BESYLATE 5 MG TAB PO SCH (08:37)
[2023-07-07] MEDS: CEROVITE ADV FORMULA TAB PO SCH (08:37)
[2023-07-07] MEDS: POTASSIUM CHLORIDE 10 MEQ TABCR PO SCH (08:37)
[2023-07-07] MEDS: EPLERENONE 25 MG PO SCH (08:38)
[2023-07-07] MEDS: PANTOprazole 40 MG TAB PO SCH (08:38)
[2023-07-07 09:19] LABS: Monocytes # (auto) 0.01 K/uL (0.11-0.59)
--- NOTE | 2023-07-07 13:50 | Hospitalist Progress Note ---
Date of Service July 07, 2023 Assessment & Plan (1) Pancytopenia: (2) Neutropenic fever: (3) AML (acute myelogenous leukemia): (4) Tongue lesion: (5) Atrial fibrillation: (6) Diabetes mellitus, type 2: (7) Hypertension: (8) Hyperlipidemia: Plan This is a 68 yo M with a PMH of relapsed AML with chemotherapy on hold since Apr 2023 2/2 low ANC and low platelet count following with Dr. Killian, DM II, HFrEF, persistent atrial fibrillation no longer on anticoagulation due to pancytopenia, HTN, BPH and other medical problems listed below who presents from home with neutropenic fever. Neutropenic fever AML T: 38.8 C, no clear source. Respiratory viral panel negative, CXR without acute abnormalities, UA, blood cultures drawn from port site, CT chest -no pneumonia or infiltrate Follows with Dr. Killian of [facility] onc, chemotherapy on hold since Apr 2023 2/2 low ANC and low platelet counts, has been requiring ~ weekly platelet transfusion Neutropenic precautions Originally on empiric vanco and cefepime, one blood culture grew ESBL K pneumo niae, another coag neg staph ID consult 07/02- appreciate recs -discontinue Vanc, continue Ertapenem -obtain repeat blood cultures, one from port and one peripheral -continue prophylactic fungal and viral meds -consider ENT for tongue biopsy 07/03- pt with fever again later in the day, received a platelet transfusion earlier, vancomycin discontinued yesterday, currently on Ertapenem. Infectious workup ordered once more (biofire, chest xray, urine, c diff). Blood Cx drawn last night, repeat ordered once more now that he is spiking fevers again. Re- started on Vancomycin. Oncology consulted earlier in the day with persistent low counts requiring transfusion- appreciate recs. ID currently on board-will contact once more in AM. 07/04- Case discussed with Dr. Killian from oncology. He recommended Neupogen 480mg daily. Also noted that fevers were likely related to platelet transfusion as infectious workup this far has been negative. Continue to monitor. Required transfusion of 1 more unit of platelets today. 07/05-Blood cultures with NGTD. No transfusion required though wbc trended down. Continue with neupogen, continue with Ertapenem and Vanc 07/06- improvement in wbc, platelets decreased. Repeat blood cultures from 07/02 and 07/03 all with NGTD. Continue neupogen, will touch base with Oncology for goal in terms of count numbers for discharge, ID for recs for discharge. 07/07- continued improvement in wbc on neupogen, though ANC of 0. Platelets 6000, transfused 2U. Discussed with Dr. Killian from Oncology in the AM, states there is no count goal, pt ok to be discharged with followup for him on and Mondays with Dr Killian's office when counts will be rechecked. ID messaged today about abx length for discharge, no response yet at this time. Pancytopenia WBC 0.10, RBC 2.18, Hgb 6.4 (recent baseline ~ 7-8), Plt 6 (requiring platelet transfusions 1-2x/week to keep plt>10) No acute bleeding noted, although tongue lesion has been bleeding at home every few days, per patient Given 1u platelets and 1u prbcs in ED - was transfused Given the neutropenia and possible sepsis, was started on Neupogen Received 3 units of PRBC and 2 units of platelets so far monitor CBC 07/03- platelets <10, platelet transfusion ordered. Oncology consulted earlier in the day with persistent low counts requiring transfusion- appreciate recs. 07/04- Case discussed with Dr. Killian from oncology. He recommended Neupogen 480mg daily. Also noted that fevers were likely related to platelet transfusion as infectious workup this far has been negative. Continue to monitor. Transfused 1 more unit of platelets today. 07/05-Blood cultures with NGTD. No transfusion required though wbc trended down. Continue with neupogen, continue with Ertapenem and Vanc 07/06- improvement in wbc, platelets decreased. Repeat blood cultures from 07/02 and 07/03 all with NGTD. Continue neupogen, will touch base with Oncology for goal in terms of count numbers for discharge, ID for recs for discharge. 07/07- continued improvement in wbc on neupogen, though ANC of 0. Platelets 6000, transfused 2U. Discussed with Dr. Killian from Oncology in the AM, states there is no count goal, pt ok to be discharged with followup for him on and Mondays with Dr Killian's office when counts will be rechecked. ID messaged today about abx length for discharge, no response yet at this time. Tongue lesion Recently was evaluated by [facility] for oral lesion on 06/24/23 and instructed to treat with nystatin swish and swallow BID x 14 D and discontinued decadron rinses Fungal culture of tongue from that appointment is negative to date F/u with Dr. Cummings in 2 weeks and if lesion still present at that time for discussion of biopsy Consulted RD to help optimize nutrition given pain with eating, liquid diet and ADAT, Boost TID PRN Will have lidocaine viscous to control tongue pain and oral pain Monitor Per ID consider ENT consult for biopsy -ENT consult placed on 07/07-appreciate recs Atrial fibrillation Given missed dose of amiodarone, currently rate controlled Continue amiodarone No longer on anticoagulation due to pancytopenia Stable DM II A1c 7.6 earlier this month Metformin on hold 09/05 causing diarrhea SSI while in-patient BSG AC HS HTN Chronic diastolic heart failure Appeared clinically dry, given 1L NSS in ED Continue home Eplerenone and Lasix HLD Continue statin Mood disorder Chronic, stable. Continue SSRI DVT Ppx: SCDs, avoid chemical VTE in setting of pancytopenia Code status: FULL PCP: Jacky Dispo: Admitting to PCU Admission and Anticipated Discharge Date Admission Date: June 29, 2023 Subjective Pt seen in the AM. Stated that he felt the same, occasional chills. No further documented fevers. Review of Systems Review of Systems: All systems reviewed & are unremarkable except as noted in Subjective Physical Exam Physical Exam: General: Alert, oriented. No acute distress Skin: No noted rashes or bruises Psych: Appropriate mood and affect Neuro: weak HEENT: NC/AT Chest: Nontender to palpation. CV: RRR, Resp: Breath sounds clear bilaterally, no increased effort of breathing. Abdomen: Soft, nontender, nondistended. Extremities: No edema in lower extremities bilaterally. Results & Data Results & Data Vital Signs (Past 12 Hours) Vital Signs Temp Pulse Pulse Resp BP BP Pulse Ox 07/07/23 12:40 36.5 C 62 18 114/68 98 07/07/23 11:56 36.9 C 63 18 108/67 95 07/07/23 11:40 36.4 C L 61 19 109/64 94 07/07/23 10:40 37 C 63 18 119/68 93 07/07/23 10:10 37.2 C 62 16 118/72 92 07/07/23 09:55 37.3 C 61 16 122/71 93 07/07/23 09:38 37.4 C 68 18 109/65 93 07/07/23 07:39 38.0 C H 78 19 144/73 H 91 07/07/23 02:35 36.8 C 55 L 16 100/60 93 O2 Del Method 07/07/23 12:40 07/07/23 11:56 07/07/23 11:40 07/07/23 10:40 07/07/23 10:10 07/07/23 09:55 07/07/23 09:38 07/07/23 07:39 Room Air 07/07/23 02:35 Room Air (5) Atrial fibrillation Atrial fibrillation type: unspecified Qualified Code(s): I48.91 - Unspecified atrial fibrillation
[2023-07-07 19:46] LABS: Hematocrit (blood only) 19.8 % (42.0-52.0); Hemoglobin 6.7 g/dl (14.0-18.0); Mean Corpuscular Hemoglobin 29.3 pg (25.0-34.0); Mean Corpuscular Hgb Conc 33.8 g/dL (32.0-36.0); Mean Corpuscular Volume 86.5 fL (80.0-100.0); Mean Platelet Volume 11.1 fL (9.4-12.4); Platelet Count 12 K/uL (130-400); RDW Coefficient of Variation 13.4 % (11.5-14.5); RDW Standard Deviation 42.3 fL (36.4-46.3); Red Blood Count 2.29 M/uL (4.70-6.10); White Blood Count 0.33 K/ul (4.8-10.8)
[2023-07-07] MEDS: FINASTERIDE 5 MG TAB PO SCH (19:46)
[2023-07-07] MEDS: TAMSULOSIN HCL 0.4 MG CAP PO SCH (19:46)
[2023-07-07] MEDS ORDERED: SODIUM CHLORIDE 0.9% 250 ML IV PRN (20:37)
[2023-07-08] MEDS: VANCOMYCIN HCL 1,500 MG in SODIUM CHLORIDE 0.9% 500 ML IV SCH (05:44)
[2023-07-08] MEDS: ACETAMINOPHEN 325 MG TAB PO PRN ×2 (05:44→15:41)
[2023-07-08 07:59] LABS: Albumin Globulin Ratio 1.2 (0.9-2); Albumin Level 2.8 gm/dl (3.4-5.0); BUN Creatinine Ratio 16.4 (10-20); Bilirubin,Total 0.5 mg/dl (0.2-1.0); Creatinine Clr Calc Pharmacy 104.8 ml/min; Est GFR (African American) 109.7 ml/min; Est GFR (Non-African American) 94.6 ml/min; Globulin 2.3 gm/dl (2.5-4.0); Magnesium 2.1 mg/dl (1.7-2.4); Phosphorus 3.1 mg/dl (2.5-4.9); Potassium 4.1 mmol/L (3.5-5.1); Total Protein 5.1 gm/dl (6.0-8.3)
[2023-07-08 08:10] LABS: Hematocrit (blood only) 20.6 % (42.0-52.0); Hemoglobin 7.2 g/dl (14.0-18.0); Mean Corpuscular Hemoglobin 29.5 pg (25.0-34.0); Mean Corpuscular Volume 84.4 fL (80.0-100.0); Platelet Count 10 K/uL (130-400); RDW Coefficient of Variation 13.5 % (11.5-14.5); RDW Standard Deviation 41.2 fL (36.4-46.3); Red Blood Count 2.44 M/uL (4.70-6.10); White Blood Count 0.28 K/ul (4.8-10.8)
--- NOTE | 2023-07-08 08:12 | Hospitalist Progress Note ---
Date of Service July 08, 2023 Assessment & Plan (1) Pancytopenia: (2) Neutropenic fever: (3) AML (acute myelogenous leukemia): (4) Tongue lesion: (5) Atrial fibrillation: (6) Diabetes mellitus, type 2: (7) Hypertension: (8) Hyperlipidemia: Plan This is a 68 yo M with a PMH of relapsed AML with chemotherapy on hold since Apr 2023 2/2 low ANC and low platelet count following with Dr. Killian, DM II, HFrEF, persistent atrial fibrillation no longer on anticoagulation due to pancytopenia, HTN, BPH and other medical problems listed below who presents from home with neutropenic fever. Neutropenic fever AML T: 38.8 C, no clear source. Respiratory viral panel negative, CXR without acute abnormalities, UA, blood cultures drawn from port site, CT chest -no pneumonia or infiltrate Follows with Dr. Killian of [facility] onc, chemotherapy on hold since Apr 2023 2/2 low ANC and low platelet counts, has been requiring ~ weekly platelet transfusion Neutropenic precautions Originally on empiric vanco and cefepime, one blood culture grew ESBL K pneumo niae, another coag neg staph ID consult 07/02- appreciate recs -discontinue Vanc, continue Ertapenem -obtain repeat blood cultures, one from port and one peripheral -continue prophylactic fungal and viral meds -consider ENT for tongue biopsy 07/03- pt with fever again later in the day, received a platelet transfusion earlier, vancomycin discontinued yesterday, currently on Ertapenem. Infectious workup ordered once more (biofire, chest xray, urine, c diff). Blood Cx drawn last night, repeat ordered once more now that he is spiking fevers again. Re- started on Vancomycin. Oncology consulted earlier in the day with persistent low counts requiring transfusion- appreciate recs. ID currently on board-will contact once more in AM. 07/04- Case discussed with Dr. Killian from oncology. He recommended Neupogen 480mg daily. Also noted that fevers were likely related to platelet transfusion as infectious workup this far has been negative. Continue to monitor. Required transfusion of 1 more unit of platelets today. 07/05-Blood cultures with NGTD. No transfusion required though wbc trended down. Continue with neupogen, continue with Ertapenem and Vanc 07/06- improvement in wbc, platelets decreased. Repeat blood cultures from 07/02 and 07/03 all with NGTD. Continue neupogen, will touch base with Oncology for goal in terms of count numbers for discharge, ID for recs for discharge. 07/07- continued improvement in wbc on neupogen, though ANC of 0. Platelets 6000, transfused 2U. Discussed with Dr. Killian from Oncology in the AM, states there is no count goal, pt ok to be discharged with followup for him on and Mondays with Dr Killian's office when counts will be rechecked. ID messaged today about abx length for discharge, no response yet at this time. Pancytopenia WBC 0.10, RBC 2.18, Hgb 6.4 (recent baseline ~ 7-8), Plt 6 (requiring platelet transfusions 1-2x/week to keep plt>10) No acute bleeding noted, although tongue lesion has been bleeding at home every few days, per patient Given 1u platelets and 1u prbcs in ED - was transfused Given the neutropenia and possible sepsis, was started on Neupogen monitor CBC 07/03- platelets <10, platelet transfusion ordered. Oncology consulted earlier in the day with persistent low counts requiring transfusion- appreciate recs. 07/04- Case discussed with Dr. Killian from oncology. He recommended Neupogen 480mg daily. Also noted that fevers were likely related to platelet transfusion as infectious workup this far has been negative. Continue to monitor. Transfused 1 more unit of platelets today. 07/05-Blood cultures with NGTD. No transfusion required though wbc trended down. Continue with neupogen, continue with Ertapenem and Vanc 07/06- improvement in wbc, platelets decreased. Repeat blood cultures from 07/02 and 07/03 all with NGTD. Continue neupogen, will touch base with Oncology for goal in terms of count numbers for discharge, ID for recs for discharge. 07/07- continued improvement in wbc on neupogen, though ANC of 0. Platelets 6000, transfused 2U. Discussed with Dr. Killian from Oncology in the AM, states there is no count goal, pt ok to be discharged with followup for him on fri and Mondays with Dr Killian's office when counts will be rechecked. ID messaged today about abx length for discharge, no response yet at this time. Tongue lesion Recently was evaluated by [facility] for oral lesion on 06/24/23 and instructed to treat with nystatin swish and swallow BID x 14 D and discontinued decadron rinses Fungal culture of tongue from that appointment is negative to date F/u with Dr. Cummings in 2 weeks and if lesion still present at that time for discussion of biopsy Consulted RD to help optimize nutrition given pain with eating, liquid diet and ADAT, Boost TID PRN Will have lidocaine viscous to control tongue pain and oral pain Monitor Per ID consider ENT consult for biopsy -ENT consult placed on 07/07-appreciate recs Atrial fibrillation Given missed dose of amiodarone, currently rate controlled Continue amiodarone No longer on anticoagulation due to pancytopenia Stable DM II A1c 7.6 earlier this month Metformin on hold 09/05 causing diarrhea SSI while in-patient [facility] AC HS HTN Chronic diastolic heart failure Appeared clinically dry, given 1L NSS in ED Continue home Eplerenone and Lasix HLD Continue statin Mood disorder Chronic, stable. Continue SSRI DVT Ppx: SCDs, avoid chemical VTE in setting of pancytopenia Code status: FULL PCP: Jacky Dispo: Admitting to PCU Admission and Anticipated Discharge Date Admission Date: June 29, 2023 Results & Data Results & Data Vital Signs (Past 12 Hours) Vital Signs Temp Pulse Pulse Resp BP BP Pulse Ox 07/08/23 07:36 36.5 C 57 L 18 137/76 92 07/08/23 03:00 37.2 C 59 L 18 110/68 91 07/08/23 01:37 36.9 C 54 L 15 142/81 H 92 07/08/23 01:01 37.3 C 54 L 16 143/71 H 90 07/08/23 00:33 36.8 C 54 L 18 147/80 H 90 07/07/23 23:33 36.7 C 53 L 20 131/76 96 07/07/23 23:03 36.7 C 53 L 16 137/77 93 07/07/23 22:48 36.9 C 56 L 18 133/77 93 07/07/23 22:37 07/07/23 22:32 36.4 C L 56 L 20 127/74 93 07/07/23 22:23 36.4 C L 58 L 20 129/73 94 O2 Del Method 07/08/23 07:36 Room Air 07/08/23 03:00 Room Air 07/08/23 01:37 07/08/23 01:01 07/08/23 00:33 07/07/23 23:33 07/07/23 23:03 07/07/23 22:48 07/07/23 22:37 Room Air 07/07/23 22:32 07/07/23 22:23 Room Air (5) Atrial fibrillation Atrial fibrillation type: unspecified Qualified Code(s): I48.91 - Unspecified atrial fibrillation
[2023-07-08] MEDS: INSULIN ASPART PER UNIT CHARGE SC SCH ×3 (08:21→17:13)
[2023-07-08] MEDS: ERTAPENEM SODIUM 1,000 MG in SYRINGE 0 ML IV SCH (08:21)
[2023-07-08] MEDS: ACYCLOVIR 400 MG TAB PO SCH (08:22)
[2023-07-08] MEDS: AMIODARONE 200 MG TAB PO SCH (08:22)
[2023-07-08] MEDS: amLODIPine BESYLATE 5 MG TAB PO SCH (08:22)
[2023-07-08] MEDS: EPLERENONE 25 MG PO SCH (08:23)
[2023-07-08] MEDS: CALCIUM CITRATE 950 MG TAB PO SCH ×3 (08:23→17:14)
[2023-07-08] MEDS: ESCITALOPRAM OXALATE 10 MG TAB PO SCH (08:24)
[2023-07-08] MEDS: ISAVUCONAZONIUM SULFATE 186 MG PO SCH (08:24)
[2023-07-08] MEDS: LOSARTAN POTASSIUM 50 MG TAB PO SCH (08:26)
[2023-07-08] MEDS: CEROVITE ADV FORMULA TAB PO SCH (08:26)
[2023-07-08] MEDS: POTASSIUM CHLORIDE 10 MEQ TABCR PO SCH (08:27)
[2023-07-08] MEDS: ROSUVASTATIN CALCIUM 10 MG TAB PO SCH (08:27)
[2023-07-08] MEDS: NYSTATIN SUSP 500,000 U/5 ML UDC PO SCH (08:27)
[2023-07-08] MEDS: PANTOprazole 40 MG TAB PO SCH (08:27)
[2023-07-08] MEDS ORDERED: VANCOMYCIN LEVEL ONE (09:15)
[2023-07-08] MEDS: FILGRASTIM 480 MCG/1.6 ML VIAL SC SCH (09:55)
--- NOTE | 2023-07-08 10:42 | ENT Consultation ---
Date of Consultation July 08, 2023 Assessment & Plan (1) Tongue lesion: (2) Hairy leukoplakia of tongue: Plan The patient has a history and exam consistent with hairy tongue and a small ulcerative lesion of the right dorsal/lateral tongue which has been present for 2 months. Occurred in the setting of trauma and has not fully healed. Clinically does not appear consistent with malignancy or infectious etiology. Given severe thrombocytopenia, would not recommend a biopsy at this time. Continue supportive care and nystatin. Would add Peridex mouth rinse twice daily. Follow-up with Dr. Cummings upon discharge History of Present Illness Attending Physician: Alanis Huff MD History of Present Illness 68yM seen for evaluation of tongue lesion. History includes AML, last chemotherapy 2 months ago. Admitted with fever and neutropenia, thus far infectious workup is negative aside from Klebsiella on 08/[address] Cummings 2 weeks ago for tongue lesion, fungal culture NGTD and slow improvement with nystatin. ID recommended tongue biopsy. Reports lesion has been present for 2 months, began after a trauma/bite. Has slowly improved however the time course. Occasional bleeding. Previous radiating pain to the right ear and odynophagia, now improved. Ongoing pancytopenia, Plt 10 Former smoker, quit 1997. No chewing tobacco or heavy EtOH use. Allergies Allergy/AdvReac Type Severity Reaction Status Date / Time bee venom protein (honey bee) Allergy Mild SWELLING Verified 06/25/23 10:23 hydrocodone AdvReac Unknown NAUSEA Verified 06/25/23 10:23 nitrofurantoin AdvReac Headache Verified 06/25/23 10:23 Home Medications Medication Instructions Recorded Confirmed Type finasteride 5 mg tablet 5 mg PO HS 09/18/18 06/29/23 History omeprazole 20 mg capsule,delayed 20 mg PO QAM 05/08/21 06/29/23 History release rosuvastatin 10 mg tablet 10 mg PO QAM 05/08/21 06/29/23 History losartan 100 mg tablet 100 mg PO QAM 05/10/21 06/29/23 History tamsulosin 0.4 mg capsule (Flomax) 4 mg PO HS 05/10/21 06/29/23 History acyclovir 400 mg tablet 400 mg PO BID 01/27/22 06/29/23 History multivitamin with minerals 1 tab PO QAM 01/27/22 06/29/23 History ondansetron 4 mg disintegrating 4 mg translingual Q6 PRN Nausea 02/05/22 06/29/23 History tablet furosemide 40 mg tablet 40 mg PO DAILY #30 tabs 02/08/22 06/29/23 Rx potassium chloride 10 mEq 10 meq PO DAILY #30 tabs 02/08/22 06/29/23 Rx tablet,extended release(part/cryst) eplerenone 25 mg tablet 25 mg PO DAILY 11/29/22 06/29/23 History tadalafil 5 mg tablet 5 mg PO DAILY PRN Muscle Pain 11/29/22 06/29/23 History cefpodoxime 200 mg tablet 400 mg PO BID 12/09/22 06/29/23 History escitalopram oxalate 10 mg tablet 10 mg PO DAILY 12/09/22 06/29/23 History isavuconazonium sulfate 186 mg 372 mg PO BID 12/09/22 06/29/23 History capsule (Cresemba) sildenafil 0 mg PO DIRECTED PRN Sexual 12/09/22 06/29/23 History Activity venetoclax 100 mg tablet 200 mg PO BID 12/09/22 06/29/23 History (Venclexta) amiodarone 200 mg tablet 200 mg PO DAILY 12/31/22 06/29/23 History amlodipine 2.5 mg tablet 2.5 mg PO DAILY 12/31/22 06/29/23 History metformin 500 mg tablet,extended 1,000 mg PO BID 12/31/22 06/29/23 History release 24 hr nystatin 100,000 unit/mL oral 5 ml PO BID 06/25/23 06/29/23 History suspension oxycodone 5 mg tablet 5 mg PO Q8H PRN Pain 06/25/23 06/29/23 History Patient History Medical History AML (acute myeloblastic leukemia) Enlargement of aortic root Follows with Dr. Sibley Per December 2019 ECHO - Aortic root and proximal ascending aorta are mildly enlarged (4.3/4.1 cm respectively) Diabetes mellitus, type 2 DENIES NEUROPATHY History of melanoma PAST HISTORY GERD (gastroesophageal reflux disease) Hypertension Hyperlipidemia Atrial fibrillation Paroxysmal - very rare Per 09/21/20 cardio note- had a fib episode February 2020 after shingles vaccine and Jun 2020 - both episodes lasted several hours- resolved after taking Flecainide as prescribed (takes PRN per cardio instructions) [id number] score =3 for risk factors of age of 64, HTN, and DM2 per cardio records- patient not on AC secondary to bleeding complications in the past (Next cardio visit Sep 2021) Surgical History History of removal of cyst off finger History of colonoscopy History of cataract surgery bilt History of biopsy of bladder History of melanoma excision Family History Other Hypertension No family history of adverse response to anesthesia Social History Smoking Status: Former smoker Cigarettes Per Day: QUIT IN 1987; Second Hand Exposure: No; Do You Dip or Chew Tobacco: No; Tobacco Cessation Education Requested by Patient: No Hx Alcohol Use: No Hx Substance Use: No Preferred Language: Cymro Communication Ability: Effective Cash Office Worker Required: No Beliefs That Will Affect Care: None marital status: Current Living Situation: Spouse How many Children do You have: 1 Other Information That Helps Us Care for You: No Feels Safe at Home: Yes Safety Concerns: Feels Safe At This Time Assistive Devices: None Assistive Devices Comment: At home Review of Systems Review of Systems: A 10-point ROS is negative except as noted above Physical Exam Physical Exam: General: No acute distress, nonlabored respirations. Ill-appearing but nontoxic Face: normal facial motion Eyes: Extraocular motion is intact. Normal sclera and conjunctiva Ears: External auditory canals are clear. Tympanic membrane is intact and the middle ear is aerated bilaterally. Nose: no external deformity, nares patent. No rhinorrhea or epistaxis. Oral cavity: Hairy tongue. 5 mm healing ulceration right lateral dorsal tongue with small amount of hairy tongue within lesion. Mildly firm, no significant depth to palpation. Oropharynx: clear Neck: soft, no masses or lymphadenopathy Results & Data Vital Signs (Past 12 Hours) Vital Signs Temp Pulse Pulse Resp BP BP Pulse Ox 07/08/23 07:36 36.5 C 57 L 18 137/76 92 07/08/23 03:00 37.2 C 59 L 18 110/68 91 07/08/23 01:37 36.9 C 54 L 15 142/81 H 92 07/08/23 01:01 37.3 C 54 L 16 143/71 H 90 07/08/23 00:33 36.8 C 54 L 18 147/80 H 90 07/07/23 23:33 36.7 C 53 L 20 131/76 96 07/07/23 23:03 36.7 C 53 L 16 137/77 93 07/07/23 22:48 36.9 C 56 L 18 133/77 93 O2 Del Method 07/08/23 07:36 Room Air 07/08/23 03:00 Room Air 07/08/23 01:37 07/08/23 01:01 07/08/23 00:33 07/07/23 23:33 07/07/23 23:03 07/07/23 22:48 PG Care Time/CCT Total # of Minutes Spent Total Time Spent with Patient: Total time spent is greater than 50% in coordination of care (as documented) at patient's floor/unit and/or counseling patient: Coding Level of Care Code 56819 IN/OBS CONSULT LVL 4,60M Diagnoses Tongue lesion K14.8 Hairy leukoplakia of tongue K13.3
[2023-07-08] MEDS ORDERED: levoFLOXacin 750 MG TAB PO SCH (11:00)
[2023-07-08] MEDS ORDERED: SODIUM CHLORIDE 0.9% 250 ML IV PRN (12:44)
--- NOTE | 2023-07-08 13:15 | Discharge Summary ---
Discharge Summary Date of Service July 08, 2023 Notes For Next Care Provider Medication Changes From Visit Levofloxacin 750mg daily until blood counts recover (possibly for a lifetime) per ID Continue Cresemba and acyclovir Peridex mouthwash, BID rinses per ENT Admission HPI Per Admitting Provider This is a 68 yo M with a PMH of relapsed AML with chemotherapy on hold since S ept 2022 2/2 low ANC and low platelet count following with Dr. Killian, DM II, HFrEF, persistent atrial fibrillation no longer on anticoagulation due to pancytopenia, HTN, BPH and other medical problems listed below who presents from home with fever x 4 days. Has been undergoing platelet transfusion up to twice a week for the past few months since chemotherapy was held and last transfusion was last Friday. That evening, patient developed chills and intermittent fever which has happened previously following a transfusion but usually resolves after a full day. This time patient continued to feel poorly with intermittent fever, chills and poor appetite over the past 4 days before presented to ED today. Patient does have pain in mouth extending to jaw and ear from oral lesion discussed below, which has made it more difficult for him to eat and get adequate fluids. Denies any recent known contacts. No headache, sore throat or nasal congestion. No CP, SOB, abdominal pain, dysuria. Has not had a bowel movement in 3 days 2/2 decreased PO intake. No recent medication changes other than holding metformin due to diarrhea. Oral lesion occasionally bleeds but hasn't in 2 days. Recently was evaluated by [facility] for oral lesion on 06/24/23 and instructed to treat with nystatin swish and swallow BID x 14 D and discontinue decadron rinses. Fungal culture of tongue from that appointment is negative to date. F/u with Dr. Cummings in 2 weeks and if lesion still present at that time for discussion of biopsy. Admission Exam Per Admitting Provider General Appearance: WD/WN, vitals as above, NAD, sitting up in bed, pleasant, appears chronically ill, pale but answers all questions appropriately Head: normocephalic, atraumatic Eyes: normal inspection, PERRL, conjunctivae normal, anicteric sclerae ENT: external ear and nose normal, dry mucous membranes of oropharynx, + dime- size lesion on lateral aspect of tongue, non bleeding Neck: normal visual inspection, trachea midline, no thyromegaly Respiratory: normal respiratory effort, lungs clear to auscultation, no wheeze, rales, rhonchi. No accessory muscle use Cardiovascular: tachycardic rate, no murmur appreciated, normal peripheral pulses, no BLE edema. Vessels: no JVD Chest: normal inspection of chest Abdomen/GI: normal bowel sounds, soft, nontender, no hepatosplenomegaly Extremities/Musculoskeletal: no cyanosis or clubbing, extremities motor strength 5/5 Neurologic: PERRL, EOMI, accommodation nl, no face palsy, no dysarthria, CN's II-XI intact bilaterally and moves all extremities Psychiatric: A+Ox3, euthymic affect Skin: no rashes, normal color, warm/dry Principal Dx & Hospital Course #1 = Principal Diagnosis (1) Hairy leukoplakia of tongue: (2) AML (acute myeloid leukemia) in relapse: (3) Bacteremia due to Klebsiella pneumoniae: (4) Neutropenic fever: (5) Tongue lesion: (6) Pancytopenia: (7) Atrial fibrillation: Plan Pt is is a 68 yoM with a PMH significant for relapsed AML with chemotherapy on hold since Apr 2023 2/ low ANC and low platelet count following with Dr. [place] Killian, DM II, HFrEF, persistent atrial fibrillation no longer on anticoagulation due to pancytopenia, HTN, BPH admitted with neutropenic fever. Neutropenic fever AML T: 38.8 C, no clear source on admission Respiratory viral panel negative, CXR without acute abnormalities, UA, CT chest -no pneumonia or infiltrate Blood Cultures x2- one culture grew Klebsiella Pneumoniae ESBL, the other grew another coag neg staph Follows with Dr. Killian of [facility] onc, chemotherapy on hold since Apr 2023 2/2 low ANC and low platelet counts, has been requiring ~ weekly transfusions Neutropenic precautions Originally on empiric vanco and cefepime ID consulted on 07/02- appreciate recs. Advised the following: -discontinue Vanc, continue Ertapenem -obtain repeat blood cultures, one from port and one peripheral- both with NGTD -continue prophylactic fungal and viral meds (Cresemba and Acyclovir) -consider ENT for tongue biopsy Discussed further with Dr. Bourne from ID on 07/08 recommendations for discharge- recommended PO levofloxacin 750mg daily until blood counts recover. Did note that could be lifetime use. Advised to continue with Cresemba and Acyclovir. PCP and Hematology/Oncology follow up. Pancytopenia On admission, WBC 0.10, RBC 2.18, Hgb 6.4 (recent baseline ~ 7-8), Plt 6 (requiring platelet transfusions 1-2x/week to keep plt>10) No acute bleeding noted, although tongue lesion has been bleeding at home every few days, per patient Was transfused 1u platelets and 1u pRBCs in ED Given the neutropenia and possible sepsis, was started on Neupogen Overall was transfused 6U of platelets and 5U of pRBCs during this hospital stay. His last unit of platelets was 07/07 and last unit of pRBCs was 07/08, the day of discharge. On day of discharge, 07/08, labs discussed with his oncologist Dr. Killian who was in agreement with the plan for discharge. Notes pt follows up in office/lab on Mondays and . Has scheduled follow up on 07/10. PCP and Hematology/Oncology follow up after discharge. Tongue lesion Recently was evaluated by [facility] for oral lesion on 06/24/23 and instructed to treat with nystatin swish and swallow BID x 14 days, discontinued decadron rinses Fungal culture of tongue from that appointment is negative to date Follows with Dr. Cummings, was considering tongue biopsy Consulted RD to help optimize nutrition given pain with eating Advised liquid diet and ADAT, Boost TID PRN Lidocaine viscous to control tongue pain and oral pain Per ID consider ENT consult for biopsy -ENT consult placed on 07/07-appreciate recs -Pt seen on day of 07/08 -ENT noted no concern for infection or malignancy on exam -dx of hairy leukoplakia of the tongue -concern for bleeding with biopsy given pt's pancytopenia -recommending Peridex mouthwash with BID rinses ENT followup after discharge Atrial fibrillation Missed doses of amiodarone Currently rate controlled Continue amiodarone No longer on anticoagulation due to pancytopenia Stable PCP followup after discharge DM II A1c 7.6 earlier this month Metformin on hold 2 causing diarrhea SSI while in-patient Continue home medications after discharge HTN Chronic diastolic heart failure Appeared clinically dry, given 1L NSS in ED Continue home Eplerenone and Lasix HLD Continue statin Mood disorder Chronic, stable. Continue SSRI Discharge Exam General: Alert, oriented. No acute distress Skin: No noted rashes or bruises Psych: Appropriate mood and affect Neuro: weak HEENT: NC/AT Chest: Nontender to palpation. CV: RRR, Resp: Breath sounds clear bilaterally, no increased effort of breathing. Abdomen: Soft, nontender, nondistended. Extremities: No edema in lower extremities bilaterally. Updated Medication List Medication Instructions Recorded Confirmed Type finasteride 5 mg tablet 5 mg PO HS 09/18/18 06/29/23 History omeprazole 20 mg capsule,delayed 20 mg PO QAM 05/08/21 06/29/23 History release rosuvastatin 10 mg tablet 10 mg PO QAM 05/08/21 06/29/23 History losartan 100 mg tablet 100 mg PO QAM 05/10/21 06/29/23 History tamsulosin 0.4 mg capsule (Flomax) 4 mg PO HS 05/10/21 06/29/23 History acyclovir 400 mg tablet 400 mg PO BID 01/27/22 06/29/23 History multivitamin with minerals 1 tab PO QAM 01/27/22 06/29/23 History ondansetron 4 mg disintegrating 4 mg translingual Q6 PRN Nausea 02/05/22 06/29/23 History tablet furosemide 40 mg tablet 40 mg PO DAILY #30 tabs 02/08/22 06/29/23 Rx potassium chloride 10 mEq 10 meq PO DAILY #30 tabs 02/08/22 06/29/23 Rx tablet,extended release(part/cryst) eplerenone 25 mg tablet 25 mg PO DAILY 11/29/22 06/29/23 History tadalafil 5 mg tablet 5 mg PO DAILY PRN Muscle Pain 11/29/22 06/29/23 History cefpodoxime 200 mg tablet 400 mg PO BID 12/09/22 06/29/23 History escitalopram oxalate 10 mg tablet 10 mg PO DAILY 12/09/22 06/29/23 History isavuconazonium sulfate 186 mg 372 mg PO BID 12/09/22 06/29/23 History capsule (Cresemba) sildenafil 0 mg PO DIRECTED PRN Sexual 12/09/22 06/29/23 History Activity venetoclax 100 mg tablet 200 mg PO BID 12/09/22 06/29/23 History (Venclexta) amiodarone 200 mg tablet 200 mg PO DAILY 12/31/22 06/29/23 History amlodipine 2.5 mg tablet 2.5 mg PO DAILY 12/31/22 06/29/23 History metformin 500 mg tablet,extended 1,000 mg PO BID 12/31/22 06/29/23 History release 24 hr nystatin 100,000 unit/mL oral 5 ml PO BID 06/25/23 06/29/23 History suspension oxycodone 5 mg tablet 5 mg PO Q8H PRN Pain 06/25/23 06/29/23 History chlorhexidine gluconate 0.12 % 15 ml buccal BID #15 mL 07/08/23 Rx mouthwash (Peridex) levofloxacin 750 mg tablet 750 mg PO DAILY #30 tabs 07/08/23 Rx Hospital Stay Data Consultations 06/29/23 13:49 ED Decision to Admit Stat 06/30/23 12:38 Consult Infectious Diseases Routine 07/03/23 13:13 Consult Oncology Routine 07/07/23 09:42 Consult Otolaryngology (Head and Neck) Routine Diagnostic Imagining Performed 06/29/23 16:04 CT Abd and Pelvis [CT abd pelvis IV con only] Urgent CT chest diagnostic wo con Routine Chest X-Ray 06/29/23 11:24 XR chest 1V portable CLINICAL HISTORY: Sepsis TECHNIQUE: Single frontal radiograph of the chest was obtained. Comparison: Comparison is made to chest radiograph of 04/12/2022 FINDINGS: A port catheter is seen. The cardiomediastinal silhouette is normal. The lungs are clear. No evidence of pleural effusion or pneumothorax. IMPRESSION: No acute abnormalities and in particular no radiographic evidence of pneumonia. ACT 112: Negative or not required by law. Electronically signed by: Dallas Joyner M.D. 06/29/2023 11:57 AM Abdomen/Pelvis CT 06/29/23 16:04 CT abd pelvis IV con only CLINICAL HISTORY: fever TECHNIQUE: Helical axial images of the abdomen and pelvis were obtained and displayed. Automated dose lowering techniques and/or adjustment according to patient size were utilized for this exam. This exam was performed with intravenous contrast. CT DOSE: 2169.43 mGy.cm COMPARISON: Comparison is made to CT abdomen pelvis 10/24/2010 FINDINGS: Lower chest: For findings above the diaphragm, please see CT chest performed same day. Liver: Unremarkable. No focal lesions are seen. Gallbladder and biliary tree: No calcified gallstones. Normal caliber wall. No intra- or extrahepatic biliary ductal dilation. Pancreas: Unremarkable, no focal lesions. Spleen: Unremarkable. Adrenals: Nodularity of the adrenal glands is noted. Kidneys and ureters: Subcentimeter hypodensities are too small to characterize. Nonobstructive stones are seen. Bladder: Unremarkable. Reproductive organs: Prostatic calcifications are seen which may represent prior hemorrhage or granulomatous disease. Bowel: Diverticulosis is seen without diverticulitis. The appendix is normal. Lymph nodes Retroperitoneal: Unremarkable. Pelvic: Unremarkable. Mesenteric: Unremarkable. Peritoneum: Normal. Vessels: Unremarkable. Abdominal wall: Unremarkable. Bones: Degenerative changes in the visualized spine. IMPRESSION: 1. No acute abnormalities are seen. 2. Diverticulosis without diverticulitis. 3. Nonobstructive nephrolithiasis. ACT 112: Negative or not required by law. Electronically signed by: Dallas oJyner M.D. 06/29/2023 5:[address] 06/29/23 16:04 CT chest diagnostic wo con CLINICAL HISTORY: neutropenic fever TECHNIQUE: Multidetector row helical CT of the chest was performed. Coronal and sagittal reformations were obtained. Automated dose lowering techniques and/or adjustment according to patient size were utilized for this exam. Comparison: Comparison is made to CT chest 02/05/2022 FINDINGS: Lungs and pleura: Atelectasis versus scarring is seen in the dependent portions of the lungs. Heart and pericardium: Cardiomegaly is seen with biatrial enlargement. Incidental note is hypodensity of the blood pool compatible with anemia. Vessels: Mild atherosclerotic changes in the aorta and coronary arteries. Pulmonary trunk measures 33 mm. Mediastinum and yola: Unremarkable. Chest wall and lower neck: Unremarkable. Abdomen: For findings below the diaphragm, please refer to CT of the abdomen dated the same. Bones: Degenerative changes in the thoracic spine. IMPRESSION: 1. No acute abnormalities are seen to explain intracranial fever, in particular no evidence of pneumonia. 2. Pulmonary hypertension and mild cardiomegaly. 3. Anemia. ACT 112: Negative or not required by law. Electronically signed by: Dallas Joyner M.D. 06/29/2023 6:40 PM Chest X-Ray 07/03/23 18:09 SINGLE VIEW CHEST CLINICAL HISTORY: Fever FINDINGS: An AP, portable, semierect chest radiograph is compared to chest x-ray and chest CT dated 06/29/2023. A right internal jugular central venous infusion port is unchanged in position. The heart is enlarged. There is mild pulmonary vascular congestion. There is chronic elevation of the right hemidiaphragm with bibasilar atelectasis. No large pleural effusion or pneumothorax is seen. The skeletal structures are osteopenic. The bony thorax is grossly intact. IMPRESSION: 1. Cardiomegaly with mild pulmonary vascular congestion. 2. No airspace consolidation or large pleural effusion is identified. ACT 112: Negative or not required by law. Electronically signed by: Vance Hutton M.D. 07/04/2023 7:24 AM Discharge Instructions Given to Patient (Per Discharging Provider) Mr. Osei, You were admitted with fevers and chills in the setting of low blood counts requiring transfusions. We treated you with antibiotics and your fevers seemed to stop and your blood cultures have stopped growing bacteria. You were seen by Infectious Disease and they are recommending discharge with the oral medication Levofloxacin 750mg daily which they state you need to be on daily until your blood counts are back in the normal range. They note that it is possible that you can be on this for a very long time. Please continue with the Cresemba and Acyclovir that you are on as well for fungal and viral prevention. We also spoke to your oncologist Dr. Killian and he recommended discharge with followup with his office on 07/10/23 for further lab monitoring and follow up. We transfused you 1U of packed red blood cells today before discharge. Please keep that appointment with his office after discharge. You also saw ENT while you were here and they further evaluated your tongue lesion. They noted that there was no concern for cancer or infection. Recommended against a biopsy at this time. Recommended use of the Peridex mouthwash, twice a day. Sent to your pharmacy. Please keep follow up with ENT after discharge. Please also keep close follow up with your primary care provider after discharge. Please do not hesitate to return to the emergency room should your symptoms return or worsen. It was a pleasure taking care of you while you were here! Total Time Total Time Spent Total Time Spent (In Minutes): > 30 minutes
[2023-07-09] MEDS ORDERED: VANCOMYCIN LEVEL ONE (05:00)
== END 2023-07-08 18:43 | disposition home or self-care (01) | DRG 808 ==
LOC: ED 10:53 → SUATTDRO 13:27 → EDINP 13:27 → 2S 19:56

== ENCOUNTER 2023-07-24 09:42 | Inpatient (IN) ==
--- NOTE | 2023-07-24 10:03 | Emergency Department Note ---
History of Present Illness General Chief complaint: Referred by Doctor Stated complaint: CANCER PT, POSSIBLE SEPSIS, LOW RED BLOOD CELLS Time Seen by Provider: 07/24/23 09:44 History of Present Illness Maximum Pain Intensity: 7 68-year-old male presents emergency department he has a history of leukemia he is followed by Dr. Killian, he did receive platelets and red blood cells this week as well as a growth factor injection this morning. Patient's had a fever of 101.4 starting yesterday. Patient denies cough cold congestion denies abdominal pain denies nausea vomiting denies diarrhea. Denies sick contacts. There are no other complaints from the patient except generalized malaise and weakness. Home Medications Medication Instructions Recorded Confirmed Type finasteride 5 mg tablet 5 mg PO HS 09/18/18 07/24/23 History omeprazole 20 mg capsule,delayed 20 mg PO QAM 05/08/21 07/24/23 History release rosuvastatin 10 mg tablet 10 mg PO QAM 05/08/21 07/24/23 History losartan 100 mg tablet 100 mg PO QAM 05/10/21 07/24/23 History tamsulosin 0.4 mg capsule (Flomax) 4 mg PO HS 05/10/21 07/24/23 History acyclovir 400 mg tablet 400 mg PO BID 01/27/22 07/24/23 History multivitamin with minerals 1 tab PO QAM 01/27/22 07/24/23 History ondansetron 4 mg disintegrating 4 mg translingual Q6 PRN Nausea 02/05/22 07/24/23 History tablet furosemide 40 mg tablet 40 mg PO DAILY #30 tabs 02/08/22 07/24/23 Rx potassium chloride 10 mEq 10 meq PO DAILY #30 tabs 02/08/22 07/24/23 Rx tablet,extended release(part/cryst) eplerenone 25 mg tablet 25 mg PO DAILY 11/29/22 07/24/23 History tadalafil 5 mg tablet 5 mg PO DAILY PRN Muscle Pain 11/29/22 07/24/23 History escitalopram oxalate 10 mg tablet 10 mg PO DAILY 12/09/22 07/24/23 History isavuconazonium sulfate 186 mg 372 mg PO BID 12/09/22 07/24/23 History capsule (Cresemba) sildenafil 0 mg PO DIRECTED PRN Sexual 12/09/22 07/24/23 History Activity venetoclax 100 mg tablet 200 mg PO BID 12/09/22 07/24/23 History (Venclexta) amiodarone 200 mg tablet 200 mg PO DAILY 12/31/22 07/24/23 History amlodipine 2.5 mg tablet 2.5 mg PO DAILY 12/31/22 07/24/23 History metformin 500 mg tablet,extended 1,000 mg PO BID 12/31/22 07/24/23 History release 24 hr nystatin 100,000 unit/mL oral 5 ml PO BID 06/25/23 07/24/23 History suspension oxycodone 5 mg tablet 5 mg PO Q8H PRN Pain 06/25/23 07/24/23 History chlorhexidine gluconate 0.12 % 15 ml buccal BID #15 mL 07/08/23 07/24/23 Rx mouthwash (Peridex) levofloxacin 750 mg tablet 750 mg PO DAILY #30 tabs 07/08/23 07/24/23 Rx Allergies Allergy/AdvReac Type Severity Reaction Status Date / Time bee venom protein (honey bee) Allergy Mild SWELLING Verified 07/22/23 09:54 hydrocodone AdvReac Unknown NAUSEA Verified 07/22/23 09:54 nitrofurantoin AdvReac Headache Verified 07/22/23 09:54 Past Med/Surg History Medical History AML (acute myeloblastic leukemia) Enlargement of aortic root Follows with Dr. Sibley Per December 2019 ECHO - Aortic root and proximal ascending aorta are mildly enlarged (4.3/4.1 cm respectively) Diabetes mellitus, type 2 DENIES NEUROPATHY History of melanoma PAST HISTORY GERD (gastroesophageal reflux disease) Hypertension Hyperlipidemia Atrial fibrillation Paroxysmal - very rare Per 09/21/20 cardio note- had a fib episode February 2020 after shingles vaccine and Jun 2020 - both episodes lasted several hours- resolved after taking Flecainide as prescribed (takes PRN per cardio instructions) [id number]-CUTt score =3 for risk factors of age of 64, HTN, and DM2 per cardio records- patient not on AC secondary to bleeding complications in the past (Next cardio visit Sep 2021) Surgical History History of removal of cyst off finger History of colonoscopy History of cataract surgery bilt History of biopsy of bladder History of melanoma excision Family History Other Hypertension No family history of adverse response to anesthesia Social History Smoking Status: Never smoker Cigarettes Per Day: QUIT IN 1987; Second Hand Exposure: No; Do You Dip or Chew Tobacco: No; Hx Alcohol Use: No Hx Substance Use: No Preferred Language: Nauruan Communication Ability: Effective Metal Polisher Required: No Beliefs That Will Affect Care: None marital status: Current Living Situation: Spouse How many Children do You have: 1 Feels Safe at Home: Yes Assistive Devices: None Review of Systems Constitutional: + fever, + body aches and + weakness Respiratory: no cough and no dyspnea Cardiovascular: no chest pain Physical Exam Vital Signs Vital Signs - 24 hr 07/24/23 09:47 07/24/23 10:04 07/24/23 10:24 Temperature 36.7 C Temperature Source Temporal Artery Scan Pulse Rate 89 79 Pulse Rate [Finger] 81 Pulse Rhythm [Finger] Regular Respiratory Rate 20 18 Respiratory Effort / Characteristics Non-Labored Spontaneous Non-Labored Spontaneous Respiratory Depth Normal Normal Respiratory Pattern Regular Blood Pressure 88/56 L Blood Pressure [Right Arm] 92/63 L Blood Pressure Mean 66 Blood Pressure Mean [Right Arm] 72 Blood Pressure Position [Right Arm] Sitting Pulse Oximetry 97 97 Oxygen Delivery Method Room Air Room Air Sepsis Recent Fever Within 48 Hours No Sepsis New/Unexplained Change in Mental Status No Sepsis Action Taken by Nursing No Action Required 07/24/23 11:11 Temperature Temperature Source Pulse Rate 73 Pulse Rate [Finger] Pulse Rhythm [Finger] Respiratory Rate 20 Respiratory Effort / Characteristics Respiratory Depth Respiratory Pattern Blood Pressure 97/67 L Blood Pressure [Right Arm] Blood Pressure Mean 74 Blood Pressure Mean [Right Arm] Blood Pressure Position [Right Arm] Pulse Oximetry 97 Oxygen Delivery Method Sepsis Recent Fever Within 48 Hours Sepsis New/Unexplained Change in Mental Status Sepsis Action Taken by Nursing GENERAL: Patient is awake alert in no acute distress patient is resting comfortably and showing no signs of anxiety EYES: The conjunctivae are clear. The pupils are round and reactive. EARS, NOSE, MOUTH AND THROAT: The nose is without any evidence of any deformity. Mucous membranes are moist. Tongue is midline. NECK: The neck is nontender and supple. RESPIRATORY: Normal respiratory effort is noted there is no evidence of wheezing rhonchi or rales CARDIOVASCULAR: Regular rate and rhythm noted there no murmurs rubs or gallops normal S1 normal S2. GASTROINTESTINAL: The abdomen is soft. Abdomen is nontender. PELVIS: The Pelvis is stable. No tenderness to palpation is noted. BACK: No midline tenderness or or step-off noted range of motion in flexion extension as well as rotation no signs of muscle spasm noted MUSCULOSKELETAL/EXTREMITIES: There is no evidence of gross deformity full range of motion is noted in the hips and shoulders. SKIN: There is no obvious evidence of any rash. There are no petechiae, pallor or cyanosis noted. NEUROLOGIC: Patient is awake alert and oriented x3 strength is symmetric Course Reevaluation(s) Reevaluation #1: Patient is resting in no distress blood pressure greater than 90, patient is on IV fluids, patient was started on antibiotics. I discussed the evaluation with the patient the patient's at bedside. Patient did sign the blood consent and that is on his chart currently Time: :44 Consultations Consultation #1: Case was discussed with oncology Dr. Valerio who recommends 1 pack of platelets and 1 unit of packed cells Time: :44 Consultation #2: [facility]: :44 Administered Medications Discontinued Medications Sodium Chloride (Nss) 1,000 mls @ 999 mls/hr IV .Q1H1M ONE Stop: 07/24/23 11:07 Last Infusion: 07/24/23 11:34 Dose: Infused Documented By: Admin: 07/24/23 10:19 Dose: 999 mls/hr Documented By: KIMBERLYN Critical Care Time Critical Care Time: Yes Total Critical Care Time: 35 I have personally spent greater than 35 minutes of critical care time in the direct management of this patient. This includes bedside care, interpretation of diagnostic studies, and testing, discussion with consultants, patient, and family members, and other required patient management activities. These minutes are in excess of all separately billable procedures. Medical Decision Making Medical Records Attestation: I reviewed the patient's medical records. Home Medications Current Medication List: was personally reviewed by me Laboratory Data Attestation: I reviewed the patient's lab results. Patient is pancytopenic per my interpretation 07/24/23 10:13 07/24/23 10:13 Lab Results 07/24/23 Range/Units 10:13 WBC 0.16 L* (4.8-10.8) K/ul RBC 2.25 L (4.70-6.10) M/uL Hgb 6.6 L* (14.0-18.0) g/dl Hct 19.0 L* (42.0-52.0) % MCV 84.4 (80.0-100.0) fL MCH 29.3 (25.0-34.0) pg MCHC 34.7 (32.0-36.0) g/dL RDW Std Deviation 40.8 (36.4-46.3) fL RDW Coeff of Anna 13.3 (11.5-14.5) % Plt Count 4 L* (130-400) K/uL Immature Gran % (Auto) Cancelled Neut % (Auto) Cancelled Lymph % (Auto) Cancelled Costilla % (Auto) Cancelled Eos % (Auto) Cancelled Baso % (Auto) Cancelled Neut # (Auto) Cancelled Lymph # (Auto) Cancelled Costilla # (Auto) Cancelled Eos # (Auto) Cancelled Baso # (Auto) Cancelled Immature Gran # (Auto) Cancelled Neutrophils % (Manual) Cancelled Band Neutrophils % Cancelled Lymphocytes % (Manual) Cancelled Prolymphocyte % Cancelled Reactive Lymphs % (Man) Cancelled Monocytes % (Manual) Cancelled Eosinophils % (Manual) Cancelled Basophils % (Manual) Cancelled Metamyelocytes % (Man) Cancelled Myelocytes % (Man) Cancelled Promyelocytes % (Man) Cancelled Blast Cells % (Manual) Cancelled Plasma Cell % (Manual) Cancelled Other Cells % Cancelled Nucleated RBC % Cancelled Neutrophils # (Manual) Cancelled Band Neutrophils # Cancelled Total Absolute Neuts Cancelled Lymphocytes # (Manual) Cancelled Prolymphocyte # Cancelled Reactive Lymphs # Cancelled Total Abs Lymphocytes Cancelled Monocytes # (Manual) Cancelled Eosinophils # (Manual) Cancelled Basophils # (Manual) Cancelled Metamyelocytes # (Man) Cancelled Myelocytes # (Manual) Cancelled Promyelocytes # (Man) Cancelled Blast Cells # (Man) Cancelled Plasma Cell # (Manual) Cancelled Other Cells # Cancelled Nucleated RBCs # (Man) Cancelled Hypersegmented Neuts Cancelled Hyposegmented Neuts Cancelled Hypogranular Neuts Cancelled Large Granular Lymphs Cancelled # Lrg Granular Lymphs Cancelled Hairy Cells Cancelled Smudge Cells Cancelled Toxic Granulation Cancelled Toxic Vacuolation Cancelled Dohle Bodies Cancelled Becky Rods Cancelled Hypogranular Platelets Cancelled Giant Platelets Cancelled Platelet Satelliting Cancelled RBC Morphology Cancelled Polychromasia Cancelled Hypochromasia Cancelled Poikilocytosis Cancelled Basophilic Stippling Cancelled Anisocytosis Cancelled Microcytosis Cancelled Macrocytosis Cancelled Spherocytes Cancelled Pappenheimer Bodies Cancelled Sickle Cells Cancelled Target Cells Cancelled Tear Drop Cells Cancelled Ovalocytes Cancelled Stomatocytes Cancelled Guillen-[place] Bodies Cancelled Echinocytes Cancelled Acanthocytes (Spur) Cancelled Rouleaux Cancelled RBC Agglutinates Cancelled Schistocytes Cancelled Sezary Cell Cancelled PT 12.1 H (9.0-12.0) Seconds INR 1.1 (0.9-1.1) APTT 45 H (21-31) Seconds PTT Ratio 1.6 Sodium 131 L (136-145) mmol/L Potassium 4.0 (3.5-5.1) mmol/L Chloride 97 L (98-107) mmol/L Carbon Dioxide 26 (21-32) mmol/L Anion Gap 8 (3-11) BUN 18 (6-23) mg/dl Creatinine 0.98 (0.6-1.4) mg/dl Est Cr Clr Drug Dosing 78.1 ml/min Est GFR ( Amer) 90.8 ml/min Est GFR (Non-Af Amer) 78.4 ml/min BUN/Creatinine Ratio 18.4 (10-20) Glucose 168 H (70-99(Fasting)) mg/dl Lactate 1.2 (0.4-2.0) mmol/L Calcium 7.6 L (8.6-10.3) mg/dl Magnesium 1.9 (1.7-2.4) mg/dl Total Bilirubin 0.6 (0.2-1.0) mg/dl Direct Bilirubin 0.2 (0-0.2) mg/dl AST 26 (13-39) U/L ALT 24 (7-52) U/L Alkaline Phosphatase 160 H (34-104) U/L Troponin I High Sens 27.7 H (0-20) pg/ml Total Protein 5.4 L (6.0-8.3) gm/dl Albumin 3.2 L (3.4-5.0) gm/dl Blood Parasites ID Cancelled Blood Type O Positive Antibody Screen NEGATIVE Crossmatch See Detail Imaging Data Attestation: I personally reviewed and interpreted this imaging study as follows: My Impression: Chest x-ray interpreted by me negative for infiltrate Radiologist's Impression: Chest X-Ray 07/24/23 09:51 XR chest 1V portable CLINICAL HISTORY: Sepsis. COMPARISON STUDY: Chest CT June 29, 2023. Chest radiograph July 03, 2023. FINDINGS: A right internal jugular [id number] is in place. There is no pneumothorax or pleural effusion. Cardiomegaly is unchanged. There is no evidence for pulmonary edema. There is no consolidation. Mild elevation of the right hemidiaphragm is unchanged. Prominent gas-filled loop of small bowel within the upper abdomen is partially imaged. IMPRESSION: 1. No acute cardiopulmonary findings. No change in appearance of the chest. 2. Partially imaged gas-filled small bowel loop within the upper abdomen. ACT 112: Negative or not required by law. Electronically signed by: Rupert Brenner M.D. 07/24/2023 10:50 AM ECG Data Attestation: I personally reviewed and interpreted this ECG as follows: Additional Comments: EKG interpreted by me, normal sinus rhythm rate of 83, normal intervals, normal axis, no obvious ST segment elevation or depression Telemetry was ordered by me, interpreted as normal sinus rhythm rate of 83 MDM Narrative Medical decision making differential diagnosis includes sepsis, urinary tract infection, upper respiratory tract infection, pneumonia, neutropenic fever, electrolyte abnormality, anemia Plan is to check sepsis labs Patient's history was also provided to me by the patient's at bedside who stated he received platelets and a blood transfusion this week and also received growth factor at this morning Patient was given IV fluids, started on empiric antibiotics and consultation with our emergency department pharmacist Case was discussed with the [facility] hospitalist for admission Impression & Plan Neutropenic fever, Pancytopenia, Sepsis Discharge Plan Visit Data Chief Complaint: Referred by Doctor Stated Complaint: CANCER PT, POSSIBLE SEPSIS, LOW RED BLOOD CELLS ED Provider: Jonny Dominguez Discharge Problem: Neutropenic fever, Pancytopenia, Sepsis Patient Disposition: Admitted As Inpatient Forms Stand Alone Forms: My [facility] Prescriptions Prescriptions: No Action finasteride 5 mg Tablet 5 mg PO HS Rx Instructions: Verified with [facility] acyclovir 400 mg tablet 400 mg PO BID Rx Instructions: Verified with [facility] multivitamin with minerals Tablet 1 tab PO QAM Rx Instructions: unable to verify amlodipine 2.5 mg tablet 2.5 mg PO DAILY Rx Instructions: Verified with [facility] metformin 500 mg tablet extended release 24 hr 1,000 mg PO BID Rx Instructions: on hold amiodarone 200 mg tablet 200 mg PO DAILY Rx Instructions: Verified with [facility] omeprazole 20 mg Capsule,Delayed Release(Dr/Ec) 20 mg PO QAM Rx Instructions: 1 hour before first meal Verified with [facility] rosuvastatin 10 mg Tablet 10 mg PO QAM Rx Instructions: Verified with [facility] tamsulosin [Flomax] 0.4 mg Capsule 4 mg PO HS Rx Instructions: Per pharmacy, it's "1 daily" Verified with [facility] losartan 100 mg Tablet 100 mg PO QAM Rx Instructions: Verified with [facility] ondansetron 4 mg tablet,disintegrating 4 mg translingual Q6 PRN (Reason: Nausea) Rx Instructions: Verified with [facility] furosemide 40 mg Tablet 40 mg PO DAILY Qty: 30 0RF Rx Instructions: Verified with [facility] potassium chloride 10 mEq Tablet,Er Particles/Crystals 10 meq PO DAILY Qty: 30 0RF Rx Instructions: Verified with [facility] tadalafil 5 mg Tablet 5 mg PO DAILY PRN (Reason: Muscle Pain) Rx Instructions: administer approximately 30min before sexual activity; do not use more than 1 dose per 24hrs Verified with [facility] eplerenone 25 mg Tablet 25 mg PO DAILY Rx Instructions: Verified with [facility] escitalopram oxalate 10 mg Tablet 10 mg PO DAILY Cresemba 186 mg Capsule 372 mg PO BID Rx Instructions: knew pt received new medication around Venclexta 100 mg Tablet 200 mg PO BID Rx Instructions: on hold sildenafil 0 mg PO DIRECTED PRN (Reason: Sexual Activity) Rx Instructions: Unable to verify with pharmacy nystatin 100,000 unit/mL Suspension 5 ml PO BID Rx Instructions: swish and swallow oxycodone 5 mg Tablet 5 mg PO Q8H PRN (Reason: Pain) chlorhexidine gluconate [Peridex] 0.12 % mouthwash 15 ml buccal BID Qty: 15 0RF Rx Instructions: Rinse mouth twice daily. levofloxacin 750 mg tablet 750 mg PO DAILY Qty: 30 0RF Referrals Referrals: Anthony Rico MD [Primary Care Provider] -
[2023-07-24] MEDS ORDERED: SODIUM CHLORIDE 0.9% 1,000 ML IV ONE (10:07)
[2023-07-24 10:51] LABS: Albumin Level 3.2 gm/dl (3.4-5.0); BUN Creatinine Ratio 18.4 (10-20); Bilirubin Direct 0.2 mg/dl (0-0.2); Bilirubin,Total 0.6 mg/dl (0.2-1.0); Calcium 7.6 mg/dl (8.6-10.3); Creatinine Clr Calc Pharmacy 78.1 ml/min; Est GFR (African American) 90.8 ml/min; Est GFR (Non-African American) 78.4 ml/min; Magnesium 1.9 mg/dl (1.7-2.4); Total Protein 5.4 gm/dl (6.0-8.3)
--- NOTE | 2023-07-24 10:51 | XRay Report ---
XR chest 1V portable CLINICAL HISTORY: Sepsis. COMPARISON STUDY: Chest CT June 29, 2023. Chest radiograph July 03, 2023. FINDINGS: A right internal jugular [id number] is in place. There is no pneumothorax or pleural eff usion. Cardiomegaly is unchanged. There is no evidence for pulmonary edema. There is no consolidation . Mild elevation of the right hemidiaphragm is unchanged. Prominent gas-filled loop of small bowel wi thin the upper abdomen is partially imaged. IMPRESSION: 1. No acute cardiopulmonary findings. No change in appearance of the chest. 2. Partially imaged gas-filled small bowel loop within the upper abdomen. ACT 112: Negative or not required by law. Electronically signed by: Rupert Brenner M.D. 07/24/2023 10:50 AM
[2023-07-24 10:54] LABS: Hemoglobin 6.6 g/dl (14.0-18.0); Mean Corpuscular Hemoglobin 29.3 pg (25.0-34.0); Mean Corpuscular Hgb Conc 34.7 g/dL (32.0-36.0); Mean Corpuscular Volume 84.4 fL (80.0-100.0); Platelet Count 4 K/uL (130-400); RDW Coefficient of Variation 13.3 % (11.5-14.5); RDW Standard Deviation 40.8 fL (36.4-46.3); Red Blood Count 2.25 M/uL (4.70-6.10); White Blood Count 0.16 K/ul (4.8-10.8)
[2023-07-24 10:56] LABS: Troponin I High Sensitivity 27.7 pg/ml (0-20)
[2023-07-24] MEDS ORDERED: ERTAPENEM SODIUM 10 ML IV STA (10:56)
[2023-07-24] MEDS ORDERED: VANCOMYCIN HCL 1,750 MG in SODIUM CHLORIDE 0.9% 500 ML IV ONE (11:00)
[2023-07-24 11:21] LABS: INR 1.1 (0.9-1.1); Partial Thromboplastin Ratio 1.6; Partial Thromboplastin Time 45 Seconds (21-31); Prothrombin Time 12.1 Seconds (9.0-12.0)
[2023-07-24] MEDS ORDERED: SODIUM CHLORIDE 0.9% 250 ML IV PRN (11:31)
[2023-07-24] MEDS ORDERED: VANCOMYCIN CONSULT ACTIVE PRN (11:37)
[2023-07-24] MEDS ORDERED: VANCOMYCIN HCL 2,250 MG in SODIUM CHLORIDE 0.9% 500 ML IV ONE (11:37)
[2023-07-24] MEDS ORDERED: MEROPENEM 2,000 MG in 0.9 % SODIUM CHLORIDE 60 ML IV SCH (11:45)
--- NOTE | 2023-07-24 12:04 | History & Physical Report ---
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 - Blood culture and mediport culture, add fungal culture. - Check CMV, Rickettsial panel (Lymes), anaplasmosis, as there does not see to be any results in either [facility] or [facility]. - Check histo galactomannan with immuosuppressed state - [facility] respiratory panel ordered - Concern for neutropenic fever, bacteremia presently without obvious source - VSS for now, not septic at present, ? mediport? Will also check echo for valvular involvement as the last one was about a year ago. - Last transfusion of blood was on 07/22, platelets on 07/21. Requires frequent transfusions - Blood bank is calling [place] for supply for the patient - may require multiple frequent transfusions. - Pt does not want BMbx or transplant, may need to revisit this conversation and possible require transfer to [facility] for infectious disease and heme/onc support as these services are not inhouse here. He is also requesting to be full code despite a platlet count of 4 on admission. It seems that the patient and his are not fully understanding the disease process or its progression, and would warrant further conversation regarding goals of care. Can consider palliative care consultation - Neutropenic precautions - Discussion regarding neutropenic diet to be further discussed with prior to d ischarge - Pt is already on prophylaxis with levaquin, acyclovir and Cresemba --no longer on venetoclax since Apr 2023. Holding ppx levaquin for now. - Follows outpatient heme/onc with Dr. Tyler (6) Atrial fibrillation: Plan: - Rate control with amiodarone - Not on anticoagulation due to thrombocytopenia (7) Anemia: Plan: - Monitoring counts, trending with am labs - Transfusion support as necessary- requiring frequent transfusions, at least weekly at this point (8) Diabetes mellitus, type 2: Plan: - Holding metformin, ISS with accuchecks achs -A1C with am labs (9) Hyperlipidemia: Plan: - Cont stain therapy (10) Hypertension: Plan: - Hold losartan, epelerenone, and furosemide presently, BP was slightly low on admission but now improved with BM of 133/85 DVT ppx: teds, scds FEN/GI: HH/DM diet CODE: FULL Lines: 2 PIV Dispo: From home, likely to remain in the hospital x 1-2 days History of Present Illness Primary Care Provider: Anthony Rico MD This is a 68 yo M with PMHx of relapsed AML with chemo on hold since Apr 2023, thrombocytopenia, pancytopenia, HFrEF, persistent atrial fib no longer on anticoagulation, HTN, BPH, and has required multiple transfusions over the past months. Pt has tongue pain on and off which is chronic. He recently saw ENT with [facility] this past Friday, and has been using nystatin. He first noticed issues with the tongue about 3 months ago and thought he bit his tongue and that it never healed. He has trouble with eating some and feels slightly dehydrated today. Pt admits to having fever and chills on and off for the past 24hours, 101.4 was the highest overnight. He was feeling well after his last discharge from the hospital here. He does still complain of fatigue and feels this is no different. Pt was previously taking Vydaza injections from December to April and completed 5 cycles. It has been off since he's needed [facility] to maintain transfusion based care. Pt sustained a fall last Friday where he did fall and bump the right side of his head. He denies any lightheadedness, dizziness, or other acute complaints at this time. He is not on anticoagulation anymore since April. Pt does use all his medications as directed and got them this morning. Allergies Allergy/AdvReac Type Severity Reaction Status Date / Time bee venom protein (honey bee) Allergy Mild SWELLING Verified 07/22/23 09:54 hydrocodone AdvReac Unknown NAUSEA Verified 07/22/23 09:54 nitrofurantoin AdvReac Headache Verified 07/22/23 09:54 Home Medications Medication Instructions Recorded Confirmed Type finasteride 5 mg tablet 5 mg PO HS 09/18/18 07/24/23 History omeprazole 20 mg capsule,delayed 20 mg PO QAM 05/08/21 07/24/23 History release rosuvastatin 10 mg tablet 10 mg PO QAM 05/08/21 07/24/23 History losartan 100 mg tablet 100 mg PO QAM 05/10/21 07/24/23 History tamsulosin 0.4 mg capsule (Flomax) 4 mg PO HS 05/10/21 07/24/23 History acyclovir 400 mg tablet 400 mg PO BID 01/27/22 07/24/23 History multivitamin with minerals 1 tab PO QAM 01/27/22 07/24/23 History ondansetron 4 mg disintegrating 4 mg translingual Q6 PRN Nausea 02/05/22 07/24/23 History tablet furosemide 40 mg tablet 40 mg PO DAILY #30 tabs 02/08/22 07/24/23 Rx potassium chloride 10 mEq 10 meq PO DAILY #30 tabs 02/08/22 07/24/23 Rx tablet,extended release(part/cryst) eplerenone 25 mg tablet 25 mg PO DAILY 11/29/22 07/24/23 History tadalafil 5 mg tablet 5 mg PO DAILY PRN Muscle Pain 11/29/22 07/24/23 History escitalopram oxalate 10 mg tablet 10 mg PO DAILY 12/09/22 07/24/23 History isavuconazonium sulfate 186 mg 372 mg PO BID 12/09/22 07/24/23 History capsule (Cresemba) sildenafil 0 mg PO DIRECTED PRN Sexual 12/09/22 07/24/23 History Activity amiodarone 200 mg tablet 200 mg PO DAILY 12/31/22 07/24/23 History amlodipine 2.5 mg tablet 2.5 mg PO DAILY 12/31/22 07/24/23 History metformin 500 mg tablet,extended 1,000 mg PO BID 12/31/22 07/24/23 History release 24 hr nystatin 100,000 unit/mL oral 5 ml PO BID 06/25/23 07/24/23 History suspension oxycodone 5 mg tablet 5 mg PO Q8H PRN Pain 06/25/23 07/24/23 History chlorhexidine gluconate 0.12 % 15 ml buccal BID #15 mL 07/08/23 07/24/23 Rx mouthwash (Peridex) levofloxacin 750 mg tablet 750 mg PO DAILY #30 tabs 07/08/23 07/24/23 Rx gabapentin 100 mg capsule 100 mg PO TID 07/24/23 07/24/23 History Past Med/Surg History Medical History AML (acute myeloblastic leukemia) Enlargement of aortic root Follows with Dr. Sibley Per December 2019 ECHO - Aortic root and proximal ascending aorta are mildly enlarged (4.3/4.1 cm respectively) Diabetes mellitus, type 2 DENIES NEUROPATHY History of melanoma PAST HISTORY GERD (gastroesophageal reflux disease) Hypertension Hyperlipidemia Atrial fibrillation Paroxysmal - very rare Per 09/21/20 cardio note- had a fib episode February 2020 after shingles vaccine and Jun 2020 - both episodes lasted several hours- resolved after taking Flecainide as prescribed (takes PRN per cardio instructions) [id number] score =3 for risk factors of age of 64, HTN, and DM2 per cardio records- patient not on AC secondary to bleeding complications in the past (Next cardio visit Sep 2021) Surgical History History of removal of cyst off finger History of colonoscopy History of cataract surgery bilt History of biopsy of bladder History of melanoma excision Family History Other Hypertension No family history of adverse response to anesthesia Social History Smoking Status: Never smoker Cigarettes Per Day: QUIT IN 1987; Second Hand Exposure: No; Do You Dip or Chew Tobacco: No; Hx Alcohol Use: No Hx Substance Use: No Preferred Language: Pashto Communication Ability: Effective Authorizer Required: No Beliefs That Will Affect Care: None marital status: Current Living Situation: Spouse How many Children do You have: 1 Feels Safe at Home: Yes Assistive Devices: None Review of Systems Review of Systems: Constitutional: +fever, sweats and chills Eyes: No diplopia, no worsening or blurred vision ENT: normal hearing, no trouble swallowing, + tongue pain as per HPI Respiratory: No cough, sputum, dyspnea at rest or on exertion Cardiovascular: No chest pain, tightness or palpitations Abdomen: No pain, nausea, vomiting, diarrhea or constipation Musculoskeletal: No joint pain, calf pain, swelling, Neurologic: No weakness, numbness/tingling, or balance problems, + recent fall as per HPI Psychiatric: No anxiety or depression Skin: Fine rash/pinpoint petechia throughout, not itchy Physical Exam Physical Exam: Please refer to physicians physical exam addendum. Results & Data Results & Data Vital Signs (Past 12 Hours) Vital Signs Temp Pulse Pulse Resp BP BP Pulse Ox 07/24/23 11:11 73 20 97/67 L 97 07/24/23 10:24 81 18 92/63 L 97 07/24/23 10:04 79 07/24/23 09:47 36.7 C 89 20 88/56 L 97 O2 Del Method 07/24/23 11:11 07/24/23 10:24 Room Air 07/24/23 10:04 07/24/23 09:47 Room Air Laboratory Results 07/24/23 10:22 Aerobic Blood Culture - Pending Blood Anaerobic Blood Culture - Pending 07/24/23 10:13 Aerobic Blood Culture - Pending Blood Anaerobic Blood Culture - Pending 07/24/23 10:13 WBC 0.16 L* RBC 2.25 L Hgb 6.6 L* Hct 19.0 L* MCV 84.4 MCH 29.3 MCHC 34.7 RDW Std Deviation 40.8 RDW Coeff of Anna 13.3 Plt Count 4 L* Immature Gran % (Auto) Cancelled Neut % (Auto) Cancelled Lymph % (Auto) Cancelled [place] % (Auto) Cancelled Eos % (Auto) Cancelled Baso % (Auto) Cancelled Neut # (Auto) Cancelled Lymph # (Auto) Cancelled [place] # (Auto) Cancelled Eos # (Auto) Cancelled Baso # (Auto) Cancelled Immature Gran # (Auto) Cancelled Neutrophils % (Manual) Cancelled Band Neutrophils % Cancelled Lymphocytes % (Manual) Cancelled Prolymphocyte % Cancelled Reactive Lymphs % (Man) Cancelled Monocytes % (Manual) Cancelled Eosinophils % (Manual) Cancelled Basophils % (Manual) Cancelled Metamyelocytes % (Man) Cancelled Myelocytes % (Man) Cancelled Promyelocytes % (Man) Cancelled Blast Cells % (Manual) Cancelled Plasma Cell % (Manual) Cancelled Other Cells % Cancelled Nucleated RBC % Cancelled Neutrophils # (Manual) Cancelled Band Neutrophils # Cancelled Total Absolute Neuts Cancelled Lymphocytes # (Manual) Cancelled Prolymphocyte # Cancelled Reactive Lymphs # Cancelled Total Abs Lymphocytes Cancelled Monocytes # (Manual) Cancelled Eosinophils # (Manual) Cancelled Basophils # (Manual) Cancelled Metamyelocytes # (Man) Cancelled Myelocytes # (Manual) Cancelled Promyelocytes # (Man) Cancelled Blast Cells # (Man) Cancelled Plasma Cell # (Manual) Cancelled Other Cells # Cancelled Nucleated RBCs # (Man) Cancelled Hypersegmented Neuts Cancelled Hyposegmented Neuts Cancelled Hypogranular Neuts Cancelled Large Granular Lymphs Cancelled # Lrg Granular Lymphs Cancelled Hairy Cells Cancelled Smudge Cells Cancelled Toxic Granulation Cancelled Toxic Vacuolation Cancelled Dohle Bodies Cancelled Becky Rods Cancelled Hypogranular Platelets Cancelled Giant Platelets Cancelled Platelet Satelliting Cancelled RBC Morphology Cancelled Polychromasia Cancelled Hypochromasia Cancelled Poikilocytosis Cancelled Basophilic Stippling Cancelled Anisocytosis Cancelled Microcytosis Cancelled Macrocytosis Cancelled Spherocytes Cancelled Pappenheimer Bodies Cancelled Sickle Cells Cancelled Target Cells Cancelled Tear Drop Cells Cancelled Ovalocytes Cancelled Stomatocytes Cancelled Guillen-Wolford Bodies Cancelled Echinocytes Cancelled Acanthocytes (Spur) Cancelled Rouleaux Cancelled RBC Agglutinates Cancelled Schistocytes Cancelled Sezary Cell Cancelled PT 12.1 H INR 1.1 APTT 45 H PTT Ratio 1.6 Sodium 131 L Potassium 4.0 Chloride 97 L Carbon Dioxide 26 Anion Gap 8 BUN 18 Creatinine 0.98 Est Cr Clr Drug Dosing 78.1 Est GFR ( Amer) 90.8 Est GFR (Non-Af Amer) 78.4 BUN/Creatinine Ratio 18.4 Glucose 168 H Lactate 1.2 Calcium 7.6 L Magnesium 1.9 Total Bilirubin 0.6 Direct Bilirubin 0.2 AST 26 ALT 24 Alkaline Phosphatase 160 H Troponin I High Sens 27.7 H Total Protein 5.4 L Albumin 3.2 L Procalcitonin 0.58 H Blood Parasites ID Cancelled Blood Type O Positive Antibody Screen NEGATIVE Crossmatch See Detail Diagnostic Findings Chest X-Ray 07/24/23 09:51 XR chest 1V portable CLINICAL HISTORY: Sepsis. COMPARISON STUDY: Chest CT June 29, 2023. Chest radiograph July 03, 2023. FINDINGS: A right internal jugular [id number] is in place. There is no pneumothorax or pleural effusion. Cardiomegaly is unchanged. There is no evidence for pulmonary edema. There is no consolidation. Mild elevation of the right hemidiaphragm is unchanged. Prominent gas-filled loop of small bowel within the upper abdomen is partially imaged. IMPRESSION: 1. No acute cardiopulmonary findings. No change in appearance of the chest. 2. Partially imaged gas-filled small bowel loop within the upper abdomen. ACT 112: Negative or not required by law. Electronically signed by: Rupert Brenner M.D. 07/24/2023 10:50 AM Code Status & VTE Plan Code Status Full code - discussed with the patient and at bedside VTE Prophylaxis Plan VTE Prophylaxis will be ordered: Yes Supervising Physician Co-Signing Physician Notes I have seen and discussed the case with the collaborating JARED. I agree with the above H&P. I have reviewed and confirmed the patients medical history, the findings on physical examination, and the patients diagnosis and treatment plan with Jitendra COLEMAN and agree with the information documented. In short, Mr Osei is a 68 year old gentleman with past medical history of relapsed AML c/b ongoing pancytopenia who is admitted for evaluation of febrile neutropenia. Patient's last treatment received 04/08-04/11/2023; however, low ANC and low platelets have persisted. Patient reports 48 hours of chills, night sweats with fever up to 101.4 degrees F. Denies nausea, vomiting, sick contacts, cough. Reports dyspnea on exertion and malaise. Reports fall with blunt trauma of head, no LOC--feels related to oxy/gabapentin combination. Patient also notes that lesion on tongue (hairy leukoplakia) is improving. Upon arrival, noted to be hypotensive and afebrile. Recent admission with klebsiella bacteremia without source noted--given that patient was on prophyla ctic levofloxacin at the time the bacteremia was noted. Received Vanc and NS 1 L in ED. Changed ertapenem to meropenem. Physical Exam. GENERAL APPEARANCE: AxOx4, generalized pallor, clammy appearance HEENT: small ecchymosis on right forehead/scalp. Nasopharynx clear, oropharynx clear, black coating on tongue, small 1cm~ beefy like lesion on right side of tongue NECK: Supple without lymphadenopathy. No stiffness or restricted ROM. HEART: Normal rate and regular rhythm, normal S1/S1, no m/r/g LUNGS: CTAB, moving air well. No crackles or wheezes are heard. ABDOMEN: Soft, nontender, nondistended with good bowel sounds heard. BACK: No CVAT, no obvious deformity. EXTREMITIES: Without cyanosis, clubbing or edema. NEUROLOGICAL: Grossly nonfocal. Alert and oriented, moving all 4 extremities. CN not formally tested but appear grossly intact. Skin: warm, dry skin. petechiae on bilateral lower extremities and upper extremities Plan Febrile neutropenia Severe neutropenia Severe pancytopenia -Neutropenic precautions. -Repeat infectious work up -1 blood culture from right port -No history of lyme work up: ordered tick bourne illness work up -Galactomannan, BD Glucan, blood cultures, fungal cultures, mrsa -Transfuse hgb < 7, plt <15 -requires transfer of blood from [facility]/meropenem -ECHO Admit PCU Rest of plan as above. (6) Atrial fibrillation Atrial fibrillation type: unspecified Qualified Code(s): I48.91 - Unspecified atrial fibrillation (7) Anemia Anemia type: unspecified type Qualified Code(s): D64.9 - Anemia, unspecified
[2023-07-24 12:11] LABS: Influenza A virus by PCR Negative (Neg); Influenza B virus by PCR Negative (Neg); RSV by PCR Negative (Neg); SARS CoV2 RNA(COVID-19) Ceph NEGATIVE (Negative)
[2023-07-24] MEDS ORDERED: MEROPENEM 500 MG in SYRINGE 0 ML IV ONE (12:15)
[2023-07-24] MEDS ORDERED: NON-FORMULARY MEDICATION (Tadalafil 5 mg Tablet) PO PRN (13:12)
[2023-07-24 13:26] LABS: Appearance Urine Clear (Clear); Bacteria Urine Automated Negative (Negative); Blood Urine Negative (Negative); Color Urine Dark Yellow; Epithelial Cell Urine Auto >30 /lpf (0-5); Glucose Urine UA Negative (Negative); Ketones Urine Trace (Negative); Leukocyte Esterase Urine Negative (Negative); Nitrite Urine Negative (Negative); Protein Urine 2+ (Negative); RBC Urine Automated 0-4 /hpf (0-4); Specific Gravity Urine 1.028 (1.000-1.030); Urobilinogen Urine Negative (Negative); pH Urine 5.5 (4.5-7.5)
[2023-07-24] MEDS ORDERED: GLUCOSE 40% GEL 15 GM TUBE PO PRN (13:27)
[2023-07-24] MEDS ORDERED: CARBOHYDRATES FOR HYPOGLYCEMIA PO PRN (13:27)
[2023-07-24] MEDS ORDERED: DEXTROSE 50% 50 ML SYRINGE IV PRN (13:27)
[2023-07-24] MEDS ORDERED: GLUCOSE 10 TAB/TUBE PO PRN (13:27)
[2023-07-24] MEDS ORDERED: GLUCAGON FOR INJ 1 MG VIAL SQ PRN (13:27)
--- NOTE | 2023-07-24 13:30 | CT Scan Report ---
CT head/brain wo con CLINICAL HISTORY: Fall, head trauma, plt count 4 Technique: Contiguous axial CT images of the head were acquired from the base of the skull to the harleen maddie without intravenous contrast administration. Images were viewed in brain, subdural and bone windo ws. Automated dose lowering techniques and/or adjustment according to patient size were utilized for this exam. Comparison: None available at the time of this dictation. Findings: The ventricles, basal cisterns, and cerebral sulci are normal. There is no acute intracranial hemorrh age or evidence of acute territorial infarction. Neither mass effect, shift of the midline structures , nor abnormal extra-axial fluid collections are shown. There is opacification of the right maxillary sinus and ethmoid sinuses. The orbits appear normal. Th ere are no acute fractures of the calvaria or scalp swelling. Impression: No acute intracranial hemorrhage, no evidence of acute territorial infarction or other acute intracra nial disease process. ACT 112: Negative or not required by law. Electronically signed by: Dallas Joyner M.D. 07/24/2023 1:29 PM
[2023-07-24 13:32] LABS: Bilirubin Urine 1+ (Negative)
[2023-07-24] MEDS ORDERED: ONDANSETRON INJ 2 MG/ML 2 ML VIAL IV PRN (14:03)
[2023-07-24] MEDS: GABAPENTIN 100 MG CAP PO SCH ×2 (14:15→20:10)
--- OUTSIDE RECORDS SUMMARY | 2023-07-24 14:19 | External Medical Summary ---
Author Name Unknown Address Unknown Organization [id number]:[facility] [address] [place] [address] Laboratory Report Ordering Provider Test Date Status FIORDALIZA MAX 07/24/2023 08:40:42 Final Observation Date Value Abnormality Reference (Units ) Status BUN 07/24/2023 08:40:42 16 6-20 (mg/dL) Final Creatinine 07/24/2023 08:40:42 1.0 0.6-1.2 (mg/dL) Final Glomerular filtration rate/1.73 sq M.predicted [Volume Rate/Area] in Serum, Plasma or Blood by Creatinine-based formula (CKD-EPI) 07/24/2023 08:40:42 83 >=60 (mL/min) Final eGFR is calculated based on the CKD-EPI 2020 equation SODIUM 07/24/2023 08:40:42 131 Below low normal 135 -146 (mmol/L) Final Potassium 07/24/2023 08:40:42 4.0 3.5-5.1 (m mol/L) Final Cl 07/24/2023 08:40:42 94 Below low normal 98- 107 (mmol/L) Final CO2 07/24/2023 08:40:42 24 22-32 (mmo l/L) Final Anion gap 07/24/2023 08:40:42 13 7-15 (mmol /L) Final Glucose 07/24/2023 08:40:42 201 Above high normal 70 -120 (mg/dL) Final Albumin 07/24/2023 08:40:42 3.2 Below low normal 3.8 -5.0 (g/dL) Final AST (Aspartate aminotransferase) 07/24/2023 08:40:42 33 10-50 (U/L) Fin al Alk Phos 07/24/2023 08:40:42 195 Above high normal 35 -130 (U/L) Final Bilirubin, Total 07/24/2023 08:40:42 0.4 <=1 .2 (mg/dL) Final Calcium 07/24/2023 08:40:42 8.2 Below low normal 8.4 -10.2 (mg/dL) Final Protein 07/24/2023 08:40:42 5.8 Below low normal 6.0 -8.3 (g/dL) Final ALT (Alanine aminotransferase) 07/24/2023 08:40:42 28 10-50 (U/L) Uvaldo sandoval Performing Location [facility] [address] [place] [address]
--- OUTSIDE RECORDS SUMMARY | 2023-07-24 14:19 | External Medical Summary | Summary of Care ---
Author Name Unknown Organization [facility] Address [address] [facility] [facility] [address] Phone [phone] Care Team Providers Care Edi Programmer Analyst Name Role Phone Jacky THOMAS MD, Anthony [place] Primary Care Provider [phone] Reason for Visit * Reason Comments Outpatient Testing Encounter Details Date Type Department Care Team (Late st Contact Info) Description 07/24/2023 8:30 AM EST Laboratory Laboratory [facility] [place] [address] [place] [phone] [facility] [address] [place] [address] AML (acute myeloid leukemia) ([facility]) Allergies Active Allergy Reactions Criticality Noted Date Comments Bee Venom Low 10/07/2018 Other reaction(s): SWELLING Nitrofurantoin Monohyd Macro Other (Please comment) 02/14/2014 "Flu-like symptoms, Headache, Fever, Red dots on skin-on legs mainly" Happened during end of 10 day course. documented as of this encounter (statuses as of 07/24/2023) Medications Medication Sig Dispensed Refills Start Date End Date Status MULTIVITAMIN/MINERA L FORMULA TABS OR 1 TABLET DAILY 30 0 03/21/2000 Active OneTouch UltraSoft Lancets test once daily 100 Each 11 06/19/2020 Active Amiodarone HCl 200 MG Oral Tablet [...] a day. 240 mL 1 06/19/2023 Active Acyclovir 400 MG Oral Tablet (Zovirax)Indication s:Acute myeloid leukemia in remission (HCC) Take 1 Tablet by mouth in the morning and 1 Tablet before bedtime. 180 Tablet 1 06/23/2023 Active Losartan Potassium 100 MG Oral Tablet (Cozaar)Indications :HTN, goal below 140/80 Take 1 Tablet by mouth in the morning. 90 Tablet 1 07/13/2023 Active Gabapentin 100 MG Oral Capsule (Neurontin) Take 1 Capsule by mouth in the morning and 1 Capsule at noon and 1 Capsule before bedtime. Can increase to 200mg three times a day. 180 Capsule 0 07/15/2023 Active oxyCODONE HCl 5 MG Oral Tablet (Oxy IR)Indications:Acut e myeloid leukemia in relapse (HCC) Take 1 Tablet by mouth every 8 hours as needed for Pain, Moderate. 30 Tablet 0 07/17/2023 Active levoFLOXacin 500 MG Oral Tablet Take 1 Tablet by mouth in the morning. 0 Active Chlorhexidine Gluconate 0.12 % Mouth/Throat Solution (Periogard) 15 mL. 0 07/08/2023 Active Nystatin [id number] UNIT/ML Mouth/Throat Suspension Swish and swallow 5 mL in the morning and 5 mL before bedtime. 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 0 09/05/2010 [...] as of this encounter (statuses as of 07/24/2023) Resolved Problems Problem Noted Date Diagnosed Date [...] as of this encounter (statuses as of 07/24/2023) Immunizations Name Administration Dates Next Due COVID-19 mRNA, LNP-s, No Pre serve, 2-Dose Series ([employer]) 06/19/2021,10/24/2020,10/03/2020 H1N1 2009 Influenza, IM 06/14/2009 Hepatitis B, 20+ yrs 04/13/2014,11/26/2013,10/11 Pneumococcal Conjugate Vacc, 13 Valent (Prevnar) 03/18/2019 Pneumococcal Polysaccharide PPV23 (Pneumovax) 04/21/2020,04/29/2007 Season Influenza, Quad, PF, Adjuvanted, 65+ Yrs, IM (FLUAD) 04/14/2020 Seasonal Influenza, PF, 6 M & above, IM , (FluLaval or Fluzone) 05/09/2018,05/30/2017 Seasonal Influenza, Quadriva lent Hd (Fluzone Hd) [...] Upcoming Encounters Date Type Department Care Team (Latest Contact Info) Description 07/24/2023 9:15 AM EST Immunization/Injecti on Hematology/Oncolog y Treatment, [place] [address] [place] [address] Nurse, Med 4 [address] [place] [address] Chemotherapy-induce d neutropenia *; Acute myeloid leukemia in remission (HCC) 07/29/2023 8:30 AM EST Laboratory Laboratory [facility] [place] [address] [place] [phone] Dorothy, Lab Scenery [address] [facility] [place] [address] 07/29/2023 9:00 AM EST Nurse Only Hematology/Oncolog y [facility] [place] [address] [place] [address] Park, Nurse Hem Onc Scenery [address] [place] [address] 07/29/2023 9:15 AM EST Immunization/Injecti on Hematology/Oncolog y Treatment, [place] [address] [place] [address] Nurse, Med 4 [address] [place] [address] 07/31/2023 8:30 AM EST Laboratory Laboratory [facility] [address] [place] [phone] Park, Lab Scenery [address] [place] [address] 07/31/2023 9:00 AM EST Nurse Only Hematology/Oncolog y [facility] [address] [place] [address] Park, Nurse Hem Onc Scenery [address] [place] [address] 07/31/2023 9:15 AM EST Immunization/Injecti on Hematology/Oncolog y Treatment, [place] [address] [place] [address] Nurse, Med 4 [address] [place] [address] 08/05/2023 8:30 AM EST Laboratory Laboratory [facility] [address] [place] [phone] Park, Lab Scenery [address] [place] [address] 08/05/2023 9:00 AM EST Nurse Only Hematology/Oncolog y [facility] [address] [place] [address] Park, Nurse Hem Onc Scenery [address] [place] [address] 08/07/2023 8:30 AM EST Laboratory Laboratory [facility] [address] [place] [phone] Park, Lab Scenery [address] [place] [address] 08/07/2023 9:00 AM EST Nurse Only Hematology/Oncolog y Scenery [facility] [address] [place] [address] Park, Nurse Hem Onc Scenery [address] [place] [address] 08/11/2023 8:30 AM EST Laboratory Laboratory Scenery [facility] [address] [place] [phone] Park, Lab Scenery [address] [place] [address] 08/11/2023 9:00 AM EST Nurse Only Hematology/Oncolog y Scenery [facility] [address] [place] [address] Park, Nurse Hem Onc Scenery [address] [place] [address] 08/14/2023 8:30 AM EST Laboratory Laboratory Scenery [facility] [address] [place] [phone] Park, Lab Scenery [address] [place] [address] 08/14/2023 9:00 AM EST Nurse Only Hematology/Oncolog y Scenery [facility] [address] [place] [address] Park, Nurse Hem Onc Scenery [address] [place] [address] 08/18/2023 8:30 AM EST Laboratory Laboratory Scenery [facility] [address] [place] [phone] Park, Lab Scenery [address] [place] [address] 08/18/2023 9:00 AM EST Nurse Only Hematology/Oncolog y Sc[address] [place] [address] [place], [place] [address] Park, Nurse Hem Onc Scenery [address] [place], [place] [address] 08/21/2023 8:30 AM EST Laboratory Laboratory Scenery [facility] [address] [place], [place] [phone] Park, Lab Scenery [address] [place] [address] 08/21/2023 9:00 AM EST Nurse Only Hematology/Oncolog y Scenery [place] [address] [place], [place] [address] Park, Nurse Hem Onc Scenery [address] [place], [place] [address] 08/25/2023 8:30 AM EST Laboratory Laboratory [address]ery [address] [place] [address] [place], [place] [phone] Park, Lab Scenery [address] [place] [address] 08/25/2023 9:00 AM EST Nurse Only Hematology/Oncolog y [facility] [place] [address] [place], [place] [address] Park, Nurse Hem Onc Scenery [address] [place] [address] 08/29/2023 9:15 AM EST Office Visit Hematology/Oncolog y [facility] [place] [address] [place] [address] Berlin Killian MD [address] [place] [address] 09/02/2023 12:15 PM EST Office Visit Otolaryngology [address] [place] [address] Wendi Cummings MD [address] [place] [address] 10/03/2023 10:30 AM EST Telemedicine Urology [facility] [address] [place] [address] Kd Dickens MD [address] [place] [address] 7, Telemed [facility] Urology Ex Rm [address] [place] [address] 03/18/2024 11:00 AM EDT Office Visit Dermatology [facility] [address] [place] [address] Erica Rashid MD [address] [facility] [place] [address] Pending Results Name Type Priority Associated Diagnoses Date /Time LD Lab STAT AML (acute myeloid leukemia) ([facility]) 07/24/2023 8:40 AM EST URIC ACID Lab STAT AML (acute myeloid leukemia) ([facility]) 07/24/2023 8:40 AM EST Health Maintenance Due Date Last Done Comments Diabetic Eye Exam 09/14/2019 09/14/2018, , 07/07/2017, Additional history exists DTaP,Tdap,and Td Vaccines (2 - Td or Tdap) 04/09/2021 04/09/2011 COVID-19 Vaccine ( - 24 season) 2023 06/19/2021, 10/24/2020, 10/03/2020 Influenza Vaccine (FLU shot) (#1) 2023 04/05/2022, 04/18/2021, 04/18/2021, Additional history exists Depression Screening 05/30/2023 05/30/2022 Diabetic Foot Exam 05/30/2023 05/30/2022, 0 04/18/2021, 03/17/2020, Additional history exists B-12 11/15/2023 11/14/2022, 10/02, 04/12/2021, Additional history exists HbA1c 12/08/2023 06/09/2023, 11/02, 05/31/2022, Additional history exists Albumin/Creatinine Ratio 04/08/2024 023, 02/13/2022, 06/23/2018, Additional history exists GFR 07/24/2024 07/24/2023, 07/04, 06/23/2023, Additional history exists COLONOSCOPY-EVERY 5 YRS AGES [...] this encounter Medical Devices Implanted Type Area Radiology Special Procedure Tech Device Identifier Shelf Expiration Date Model / Serial / Lot Port Implant W/8f Poly Cath - [id number] Implanted:Qty : 1 on 11/23/2021 by Tae Porras DO at OR [facility] Right: Chest CR BARD : [employer] [id number] 09/03/2022 [id number] / / [id number] Port Implant W/8f Poly Cath - [id number] Implanted:Qty : 1 on 12/26/2022 by Fabián Del Cid DO at OR [facility] Right: Chest CR BARD : PERIPHERAL VASCULAR [id number] 04/03/2024 [id number] / / [id number] documented as of this encounter Procedures Procedure Name Priority Date/Time Associated Diagnosis Comments DIFFERENTIAL, AUTOMATED STAT 07/24/2023 8:40 AM EST AML (acute myeloid leukemia) (HCC) COMPREHENSIVE METABOLIC PANEL STAT 07/24/2023 8:40 AM EST AML (acute myeloid leukemia) (HCC) CBC STAT 07/24/2023 8:40 AM EST AML (acute myeloid leukemia) (HCC) CBC STAT 07/24/2023 8:40 AM EST AML (acute myeloid leukemia) (HCC) DIFFERENTIAL, TECHNOLOGIST REVIEW Routine 07/24/2023 8:40 AM EST AML (acute myeloid leukemia) (HCC) documented in this encounter Results * DIFFERENTIAL, TECHNOLOGIST REVIEW (07/24/2023 8:40 AM EST) Pathologist [facility] 07/24/2023 8:55 AM EST [facility] 56- Blood Venous blood specimen / Unknown Venipuncture / Unknown 07/24/2023 8:40 AM EST 07/24/2023 8:41 AM EST Berlin Killian MD LAB BLOOD ORDERABLES Performing Organization Address City/State/[facility] Co de Phone Number [facility] [address]- [address] [place] [address] * DIFFERENTIAL, AUTOMATED (07/24/2023 8:40 AM EST) Blood Venous blood specimen / Unknown Venipuncture / Unknown 07/24/2023 8:40 AM EST 07/24/2023 8:41 AM EST Narrative [facility] 56-02 - 07/24/2023 8:55 AM EST WBC < 0.60, WBC differential cancelled. Please call Client Services if differential is required. Berlin Killian MD LAB BLOOD ORDERABLES Performing Organization Address City/[facility] Co de Phone Number [facility] [address] [place] [address] * (ABNORMAL) CBC (07/24/2023 8:40 AM EST) Pathologist [facility] WBC <0.20(LL) 4.00 - 10.80 K/uL 07/24/2023 8:55 AM EST [facility] 56- RBC 2.44 4.50 - 5.25 M/uL 07/24/2023 8:55 AM EST [facility] 56- HGB 7.1(L) 14.0 - 16.8 g/dL 07/24/2023 8:55 AM EST [facility] 56- HCT 21.2(L) 40.0 - 48.4 % 07/24/2023 8:55 AM EST [facility] 56- MCV 86.9 82.0 - 99.5 fL 07/24/2023 8:55 AM EST [facility] 56- MCH 29.1 27.0 - 34.0 pg 07/24/2023 8:55 AM EST [facility] 56- MCHC 33.5 32.0 - 36.0 g/dL 07/24/2023 8:55 AM EST [facility] 56- RDW 13.5 11.5 - 15.5 % 07/24/2023 8:55 AM [facility] 56- PLT <10(LL) 140 - 400 K/uL 07/24/2023 8:55 AM [facility] 56- MPV 07/24/2023 8:55 AM [facility] 56- Comment:No result - abnormal platelet distribution. Blood Venous blood specimen / Unknown Venipuncture / Unknown 07/24/2023 8:40 AM EST 07/24/2023 8:41 AM EST Berlin Killian MD LAB BLOOD ORDERABLES [facility] [address]- [address] [place] [address] * (ABNORMAL) COMPREHENSIVE METABOLIC PANEL (07/24/2023 8:40 AM EST) Pathologist [facility] BUN 16 6 - 20 mg/dL 07/24/2023 9:11 AM EST [facility] 56- Creatinine 1.0 0.6 - 1.2 mg/dL 07/24/2023 9:11 AM [facility] 56- Estimated Glomerular Filtration Rate 83 >=60 mL/min 07/24/2023 9:11 AM [facility] 56- Comment:eGFR is calculated b ased on the CKD-EPI 2020 equation Sodium 131(L) 135 - 146 mmol/L 07/24/2023 9:11 AM [facility] 56 Potassium 4.0 3.5 - 5.1 mmol/L 07/24/2023 9:11 AM [facility] 56- Chloride 94(L) 98 - 107 mmol/L 07/24/2023 9:11 AM [facility] 56 CO2 24 22 - 32 mmol/L 07/24/2023 9:11 AM [facility] 56 Anion Gap 13 7 - 15 mmol/L 07/24/2023 9:11 AM [facility] 56 Glucose 201(H) 70 - 120 mg/dL 07/24/2023 9:11 AM [facility] 56- Albumin 3.2(L) 3.8 - 5.0 g/dL 07/24/2023 9:11 AM [facility] 56- AST 33 10 - 50 U/L 07/24/2023 9:11 AM [facility] 56- Alkaline Phosphatase 195(H) 35 - 130 U/L 07/24/2023 9:11 AM [facility] 56- Bilirubin, Total 0.4 <=1.2 mg/dL 07/24/2023 9:11 AM [facility] 56- Calcium 8.2(L) 8.4 - 10.2 mg/dL 07/24/2023 9:11 AM [facility] 56- Protein 5.8(L) 6.0 - 8.3 g/dL 07/24/2023 9:11 AM [facility] 56- ALT 28 10 - 50 U/L 07/24/2023 9:11 AM [facility] 56- Blood Venous blood specimen / Unknown Venipuncture / Unknown 07/24/2023 8:40 AM EST 07/24/2023 8:41 AM EST Berlin Killian MD LAB BLOOD ORDERABLES [facility]02 [address] [facility] [address] documented in this encounter Visit Diagnoses Diagnosis AML (acute myeloid leukemia) (HCC) Acute myeloid leukemia, without mention of having achieved remission Chemotherapy-induced neutropenia- Primary Drug induced neutropenia Acute myeloid leukemia in remission (HCC) Acute myeloid leukemia in remission documented in this encounter Advance Directives Documents on File Type Date Recorded Patient Etl Developer Expl anation Power of Fast Food Delivery Driver 06/06/2022 POWER OF A TTORNEY Latest [...] the patient have Health Care Power of Fast Food Delivery Driver? No Full Code 03/12/2022 5:18 PM 03/15/2022 7:16 PM This o rder reflects the patients wishes and were consensually agreed upon. Question Answer Comments Discussion of Advance Directives occurred with: Patient Does the patient have a Living Will? No Does the patient have Health Care Power of Fast Food Delivery Driver? No Full Code 12/04/2021 5:18 PM 01/22/2022 8:17 PM This o rder reflects the patients wishes and were consensually agreed upon. Question Answer Comments Discussion of Advance Directives occurred with: Patient Does the patient have a Living Will? No Does the patient have Health Care Power of Fast Food Delivery Driver? No Care Teams Edi Programmer Analyst Relationship Specialty Start Date End Date Anthony Rico III, MD [address] [place] [address] PCP - General 03/18/1996 documented as of this encounter
--- OUTSIDE RECORDS SUMMARY | 2023-07-24 14:19 | External Medical Summary ---
Author Name Unknown Address Unknown Organization K09[facility] [address] Laboratory Report Ordering Provider Test Date Status FIORDALIZA MAX 07/24/2023 08:40:42 Final Observation Date Value Abnormality Reference (Units ) Status COMMENT 07/24/2023 08:40:42 WBC < 0.60, WBC differential cancelled. Please call Client Services if differential is required. Final Performing Location [facility] [address]
--- OUTSIDE RECORDS SUMMARY | 2023-07-24 14:19 | External Medical Summary | Summary of Care ---
Author Name Unknown Organization [facility] Address [address] [address] Phone [phone] Care Team Providers Care School Program Director Name Role Phone Jacky THOMAS MD, Anthony Moctezuma Primary Care Provider [phone] Encounter Details Date Type Department Care Team (Late st Contact Info) Description 07/22/2023 Telephone Hematology/Oncology [facility] [place] [address] [facility] [address] Nevaeh Cobian CRNP [address] [facility] [place] [place] [address] Allergies Active Allergy Reactions Criticality Noted Date Comments Bee Venom Low 10/07/2018 Other reaction(s): SWELLING Nitrofurantoin Monohyd Macro Other (Please comment) 02/14/2014 "Flu-like symptoms, Headache, Fever, Red dots on skin-on legs mainly" Happened during end of 10 day course. documented as of this encounter (statuses as of 07/22/2023) Medications Medication Sig Dispensed Refills Start Date [...] (Periogard) 15 mL. 0 07/08/2023 Active Nystatin 708996 UNIT/ML Mouth/Throat Suspension Swish and swallow 5 [...] as of this encounter (statuses as of 07/22/2023) Active Problems Problem Noted Date Diagnosed Date [...] below 70 01/01/2012 Anticoagulation management encounter 09/05/2010 emt intermediate current use of anticoagulant therapy 0 [...] as of this encounter (statuses as of 07/22/2023) Resolved Problems Problem Noted Date Diagnosed Date [...] as of this encounter (statuses as of 07/22/2023) Immunizations Name Administration Dates Next Due COVID-19 mRNA, LNP-s, No Pre serve, 2-Dose Series (Share Your [employer]) 06/19/2021,10/24/2020,10/03/2020 H1N1 2009 Influenza, IM 06/14/2009 Hepatitis [...] encounter Miscellaneous Notes * Telephone Encounter - Michael Sigala RN - 07/22/2023 2:06 PM EST Per MICHAEL Aranda "Repeat CMP and LDH with CBC on " Scheduling, please add in lab scheduling note " CBCd, CMP, LD" documented in this encounter Plan of Treatment Upcoming Encounters Date Type Department Care Team (Late st Contact Info) Description 07/24/2023 8:30 AM EST Laboratory [facility] [place] [address] [place] [id number] Dorothy, Lab Scenery [address] [place] [address] 07/24/2023 9:00 AM EST Nurse Only Hematology/Oncology [facility] Dorothy [place] [address] [place] [address] Park, Nurse Hem Onc Scenery [address] [place] [address] 07/24/2023 9:15 AM EST Immunization/Injection Hematology/Oncology Treatment, [place] [address] [place] [address] Nurse, Med [address] [place] [address] 07/29/2023 8:30 AM EST Laboratory Laboratory [facility] [address] [place] [phone] Park, Lab Scenery [address] [place] [address] 07/29/2023 9:00 AM EST Nurse Only Hematology/On[facility] [address] [place] [address] Park, Nurse Hem Onc Scenery [address] [place], [place] [address] 07/29/2023 9:15 AM EST Immunization/Injection Hematology/Oncology Treatment, [place] [address] [place] [address] Nurse, Med 4 [address] [place] [address] 07/31/2023 8:30 AM EST Laboratory Laboratory [facility] [address] [place] [phone] Park, Lab Scenery [address] [place] [address] 07/31/2023 9:00 AM EST Nurse Only Hematology/Oncology [facility] [address] [place] [address] Park, Nurse Hem Onc Scenery [address] [place] [address] 07/31/2023 9:15 AM EST Immunization/Injection Hematology/Oncology Treatment, [place] [address] [place] [address] Nurse, Med 4 [address] [place] [address] 08/05/2023 8:30 AM EST Laboratory Laboratory Scenery [facility] [address] [place] [phone] Park, Lab Scenery [address] [place] [address] 08/05/2023 9:00 AM EST Nurse Only Hematology/Oncology Scenery [facility] [address] [place] [address] Park, Nurse Hem Onc Scenery [address] [place] [address] 08/07/2023 8:30 AM EST Laboratory Laboratory [facility] [address] [place] [phone] Park, Lab Scenery [address] [place] [address] 08/07/2023 9:00 AM EST Nurse Only Hematology/Oncology [facility] [place] [address] [place] [address] Park, Nurse Hem Onc Scenery [address] [place] [address] 08/11/2023 8:30 AM EST Laboratory Laboratory [facility] [address] [place] [phone] Park, Lab Scenery [address] [place] [address] 08/11/2023 9:00 AM EST Nurse Only Hematology/Oncology Scenery [facility] [address] [place] [address] Park, Nurse Hem Onc Scenery [address] [place] [address] 08/14/2023 8:30 AM EST Laboratory Laboratory Scenery [facility] [address] [place] [address] Park, Lab Scenery [address] [place] [address] 08/14/2023 9:00 AM EST Nurse Only Hematology/Oncology Scenery [facility] [address] [place] [address] Park, Nurse Hem Onc Scenery [address] [place] [address] 08/18/2023 8:30 AM EST Laboratory Laboratory Scenery [facility] [address] [place] [phone] Park, Lab Scenery [address] [place] [address] 08/18/2023 9:00 AM EST Nurse Only Hematology/Oncology Scenery [facility] [address] [place] [address] Park, Nurse Hem Onc Scenery [address] [place] [address] 08/21/2023 8:30 AM EST Laboratory Laboratory Scenery [facility] [address] [place] [address] Park, Lab Scenery [address] [place] [address] 08/21/2023 9:00 AM EST Nurse Only Hematology/Oncology Scenery [facility] [address] [place] [address] Park, Nurse Hem Onc Scenery [address] [place] [address] 08/25/2023 8:30 AM EST Laboratory Laboratory Scenery [facility] [address] [place] [address] Park, Lab Scenery [address] [place] [address] 08/25/2023 9:00 AM EST Nurse Only Hematology/Oncology [facility] [address] [place], [place] [address] Park, Nurse Hem Onc [facility] 200 [facility] [place], [place] [address] 08/29/2023 9:15 AM EST Office Visit Hematology/Oncology [facility] [address] [place] [address] [place] Killian MD 200 [facility] [place] [address] 09/02/2023 12:15 PM EST Office Visit Otolaryngology [facility] [address] [place] [address] Wendi Cummings MD [address] [facility] [place] [address] 10/03/2023 10:30 AM EST Telemedicine Urology Zhou Yap [address] [place] [address] Kd Dickens MD [address] [place] [address] 7, Telemed [facility] Urology Ex Rm [address] [place] [address] 03/18/2024 11:00 AM EDT Office Visit Dermatology [facility] [address] [place], [place] [address] Erica Rashid MD 200 [facility] [place], [place] [address] Health Maintenance Due Date Last Done Comments [...] 023, 02/13/2022, 06/23/2018, Additional history exists GFR 07/21/2024 07/21/2023, 06/05, 06/16/2023, Additional history exists COLONOSCOPY-EVERY 5 YRS AGES [...] this encounter Medical Devices Implanted Type Area Keyboard Operator Device Identifier Shelf Expiration Date Model / Serial / Lot Port Implant W/8f Poly Cath - [id number] Implanted:Qty : 1 on 11/23/2021 by Tae Porras, DO at OR [facility] Right: Chest CR BARD : PERIPHERAL V[employer] [id number] 09/03/2022 [id number] / / [id number] Port Implant W/8f Poly Cath - [id number] Implanted:Qty : 1 on 12/26/2022 by Fabián Del Cid, DO at OR [facility] Right: Chest CR BARD : PERIPHERAL VASCULAR [id number] 04/03/2024 [id number] / / [id number] documented as of this encounter Advance Directives Documents on File Type Date Recorded Patient Retail Banker Expl anation Power of Audio Narrator 06/06/2022 POWER OF A TTORNEY Latest Code [...] the patient have Health Care Power of Audio Narrator? No Full Code 03/12/2022 5:18 PM 03/15/2022 7:16 PM This o rder reflects the patients wishes and were consensually agreed upon. Question Answer Comments Discussion of Advance Directives occurred with: Patient Does the patient have a Living Will? No Does the patient have Health Care Power of Audio Narrator? No Full Code 12/04/2021 5:18 PM 01/22/2022 8:17 PM This o rder reflects the patients wishes and were consensually agreed upon. Question Answer Comments Discussion of Advance Directives occurred with: Patient Does the patient have a Living Will? No Does the patient have Health Care Power of Audio Narrator? No Care Teams School Program Director Relationship Specialty Start Date End Date Jackyaustin THOMAS, Anthony Moctezuma MD [address] [place], [place] [address] PCP - General 03/18/1996 documented as of this encounter
--- OUTSIDE RECORDS SUMMARY | 2023-07-24 14:19 | External Medical Summary ---
Author Name Unknown Address Unknown Organization K[facility] [address] Laboratory Report Ordering Provider Test Date Status FIORDALIZA MAX 07/24/2023 08:40:42 Final Observation Date Value Abnormality Reference (Units ) Status WBC, Total 07/24/2023 08:40:42 <0.20 Below lower panic limits 4.00-10.80 (K/uL) Final RBC 07/24/2023 08:40:42 2.44 4.50-5.25 (M/uL) Final Hemoglobin 07/24/2023 08:40:42 7.1 Below low normal 14.0-16.8 (g/dL) Final HCT 07/24/2023 08:40:42 21.2 Below low normal 40.0-48.4 (%) Final MCV 07/24/2023 08:40:42 86.9 82.0-99.5 (fL) Final MCH 07/24/2023 08:40:42 29.1 27.0-34.0 (pg) Final MCHC 07/24/2023 08:40:42 33.5 32.0-36.0 (g/dL) Final RDW 07/24/2023 08:40:42 13.5 11.5-15.5 (%) Final Platelets 07/24/2023 08:40:42 <10 Below lower panic limits 140-400 (K/uL) Final MPV 07/24/2023 08:40:42 Final No result - abnormal platele t distribution. Performing Location [facility] [place] [address]
--- OUTSIDE RECORDS SUMMARY | 2023-07-24 14:19 | External Medical Summary | Summary of Care ---
Author Name Unknown Organization [facility] Address [address] [facility] [address] Phone [phone] Care Team Providers Care Nurse Staff Name Role Phone Jacky THOMAS MD, Anthnoy Moctezuma Primary Care Provider [phone] Reason for Visit * Reason Comments Hospital Follow-Up 2 week follow up aft er ED visit Encounter Details Date Type Department Care Team (Late st Contact Info) Description 07/22/2023 1:15 PM EST Office Visit Otolaryngology [facility] [address] [facility] [place] [address] Wendi Cummings MD [address] [place] [phone] Tongue lesion* Allergies Active Allergy Reactions Criticality Noted Date [...] 06/09/2023 Active dexAMETHasone 0.5 MG/5ML Oral Solution (Decadron)Indica tions:Acute myeloid leukemia in remission (HCC),Oral ulcer 10 mL swish for 2 minutes and then spit, 4 times a day. 240 mL 1 06/19/2023 Active Acyclovir 400 MG Oral Tablet (Zovirax)Indicat ions:Acute myeloid leukemia in remission (HCC) Take 1 Tablet by mouth in the morning and 1 Tablet before bedtime. 180 Tablet 1 06/23/2023 Active Losartan Potassium 100 MG Oral Tablet (Cozaar)Indicati ons:HTN, goal below 140/80 Take 1 Tablet by [...] (Periogard) 15 mL. 0 07/08/2023 Active Nystatin 500707 UNIT/ML Mouth/Throat Suspension Swish and swallow 5 mL in the morning and 5 mL before bedtime. 1000 mL 1 07/22/2023 Active Nystatin 326085 UNIT/ML Mouth/Throat Suspension Swish and swallow 5 mL in the morning and 5 mL before bedtime. 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 0 [...] mRNA, LNP-s, No Pre serve, 2-Dose Series ([email or web address]) 06/19/2021,10/24/2020,10/03/2020 H1N1 2009 Influenza, IM 06/14/2009 Hepatitis [...] 10 Q uit: 08/13/1987 Smokeless Tobacco: Never Tobacco Cessation:Counseling Given: Not Answered Alcohol Use Standard Drinks/Week Comments Not Currently [...] Pressure - - Pulse - - Temperature 37.2 C (98.9 F) 07/22/2023 1:00 PM ES T Respiratory Rate - - Oxygen Saturation - - Inhaled Oxygen Concentration - - Weight 89.9 kg (198 lb 3.2 oz) 07/22/2023 1:00 P M EST Height 182.9 cm (6' 0.01") 07/22/2023 1:00 PM ES T Body Mass Index 26.87 07/22/2023 1:00 PM EST documented in this encounter Functional [...] as of this encounter Progress Notes * Wendi Cummings MD - 07/22/2023 1:15 PM EST Nursing Notes: Hector Crowe, [facility] 07/22/23 1303 Signed Chief Complaint Patient presents with Hospital Follow-Up 2 week follow up after ED visit Abdias Osei is a 68 year old male who presents today for a follow up after he was seen at [facility] ED on 06/29/2023. He was discharged on 07/08/2023. He was seen last for a lesion on his tongue. He states that he has difficulty eating and mouth pain that radiates to his right ear. He states that he has leukemia and has trouble with wound healing. History of Present Illness This 68 year old male is seen at the request of Anthony Rico III, MD for the initial evaluation of oral lesion. The patient is here with his today. 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 Chemotherapy-induced neutropenia D70.1, T45.1X5A Past Medical History: Diagnosis Date Atrial fibrillation (HCC) DM type 2, goal A1c below 7 HTN, goal to be determined Malignant melanoma of trunk (HCC) Past Surgical History: Procedure Laterality Date BONE MARROW BIOPSY Left 02/19/2022 BONE MARROW BIOPSY (IES) performed by Fabián Del Cid DO at OR [facility] BONE MARROW BIOPSY Left 07/10/2022 BONE MARROW BIOPSY (IES) performed by Fabián Del Cid DO at OR [facility] COLONOSCOPY, DIAGNOSTIC (RECTUM) 05/04/2015 adenomatous polyp, diverticulosis, repeat 5 yrs/COLONOSCOPY FLEXIBLE PROXIMAL DIAGNOSTIC performed by Michelle Dumont DO at ENDOSCOPY [facility] CYSTOSCOPY 10/10/2010 TURBT, negative for in situ or invasive carcinoma CYSTOSCOPY 02/02/2013 DIABETIC EYE EXAM 05/10/2013 EXCISE BENIGN LESION, TRUNK, ARM, LEG, 3.1 - 4.0 CM 08/04/1999 [facility] excison of melanoma on chest 1999 Dr. Alarcon INSER TUNN ACC DEV;5 YRS/OLDER Right 11/23/2021 INSERT TUNNELED CENTRAL VENOUS ACCESS WITH SUBQ PORT performed by Tae Porras DO at OR [facility] INSER TUNN ACC DEV;5 YRS/OLDER Right 12/26/2022 INSERT TUNNELED CENTRAL VENOUS ACCESS WITH SUBQ PORT performed by Fabián Del Cid DO at OR [facility] IR VENOUS ACCESS MEDIPORT 08/07/2022 PROCEDURE - GENERAL 05/14/[address] Bladimir Hart REMOVE FINGER LESION Right 10/29/2016 Right middle finger, excision mucous cyst performed by Wilfrid Phelps MD at OR [facility] Family History Problem Relation Age of Onset [...] Types: Cigarettes Quit date: 08/13/1987 Years since quittin.9 Smokeless tobacco: Never Substance Use Topics Alcohol [...] Lancets test once daily 100 Each 11 Amiodarone HCl 200 MG Oral Tablet [...] the morning. 180 Capsule 3 Magic Swizzle (Hmunfmgcy-Aruqchfd-Bigmit) oral solution Swish and spit 15 mL in the morning and 15 mL before bedtime. 300 mL 1 dexAMETHasone 0.5 MG/5ML Oral Solution (Decadron) 10 mL swish for 2 minutes and then spit, 4 times a day. 240 mL 1 Acyclovir 400 MG Oral Tablet (Zovirax) Take 1 Tablet by mouth in the morning and 1 Tablet before bedtime. 180 Tablet 1 Losartan Potassium 100 MG Oral Tablet (Cozaar) Take 1 Tablet by mouth in the morning. 90 Tablet 1 Gabapentin 100 MG Oral Capsule (Neurontin) Take 1 Capsule by mouth in the morning and 1 Capsule at noon and 1 Capsule before bedtime. Can increase to 200mg three times a day. 180 Capsule 0 oxyCODONE HCl 5 MG Oral Tablet (Oxy IR) Take 1 Tablet by mouth every 8 hours as needed for Pain, Moderate. 30 Tablet 0 levoFLOXacin 500 MG Oral Tablet Take 1 Tablet by mouth in the morning. Chlorhexidine Gluconate 0.12 % Mouth/Throat Solution (Periogard) 15 mL. Nystatin 482113 UNIT/ML Mouth/Throat Suspension Swish and swallow 5 mL in the morning and 5 mL before bedtime. 1000 mL 1 Current Facility-Administered Medications Medication Dose Route Frequency Provider Last Rate Last Admin Albuterol Sulfate (Proventil) (2.5 MG/3ML) 0.083% inhalation solution 2.5 mg 2.5 mg Nebulizer PRN Jacky III, Anthony Moctezuma MD Albuterol Sulfate (Proventil) (5 MG/ML) 0.5% *conc* inhalation solution 2.5 mg 2.5 mg Nebulizer Anthony Burgess III, MD Allergies Review of patient's allergies [...] and past medical history Physical Exam Temp 37.2 C (98.9 F) (Tympanic) | Ht 1.829 m (6' 0.01") | Wt 89.9 kg (198 lb 3.2 oz) | BMI 26.87 kg/m | BSA 2.14 m General: This is a healthy appearing [...] portion of the tongue base was soft. Lesion appears to be healing now on the right side it is only ap proximately 5 mm in size with no drainage or signs of infection. The lips were free of lesion. Gumswere free of inflammation. Dentition: Unremarkable Oropharynx: The [...] accessory muscles. Heart: Regular rate. No JVD. Procedure last visit: Due to limitations of a mirror exam [...] the possibility of aspiration. Assessment and Plan: There are no diagnoses linked to this encounter. Plan: Findings and recommendations were discussed with the patient. Pertinent provider notes, labs,and imaging were reviewed. Will treat with nystatin swish and swallow BID x 14 days. Stop decadron rinses. Continue with magic swizzle as needed for pain. Patient seems to be doing better which is encouraging. Will have him do another 2 weeks of the nystatin rinses well as the chlorhexidine and also baking soda and saltwater rinses. I will see him backin 6 weeks to make sure he is continuing to heal. 07/22/2023 1:22 PM documented in this encounter Nursing Notes * Hector Crowe CMA - 07/22/2023 1:01 PM EST Chief Complaint Patient presents with Hospital Follow-Up 2 week follow up after ED visit Abdias Osei is a 68 year old male who presents today for a follow up after he was seen at [facility] ED on 06/29/2023. He was discharged on 07/08/2023. He was seen last for a lesion on his tongue. He states that he has difficulty eating and mouth pain that radiates to his right ear. He states that he has leukemia and has trouble with wound healing. documented in this encounter Plan of Treatment Upcoming Encounters Date Type Department Care Team (Late st Contact Info) Description 07/24/2023 8:30 AM EST Laboratory [facility] [place] [address] [place] [phone] [place], Lab Scenery [address] [place], [place] [address] 07/24/2023 9:00 AM EST Nurse Only Hematology/Oncology [facility] [place] [address] [place] [address] Park, Nurse Hem Onc Scenery [address] [place] [address] 07/24/2023 9:15 AM EST Immunization/Injection Hematology/Oncology Treatment, [place] [address] [place], [place] [address] Nurse, Med [address] [place], [place] [address] 07/29/2023 8:30 AM EST Laboratory Laboratory [facility] [place] [address] [place] [phone] Park, Lab Scenery [address] [place] [address] 07/29/2023 9:00 AM EST Nurse Only Hematology/Oncology Scenery [facility] [address] [place] [address] Park, Nurse Hem Onc Scenery [address] [place] [address] 07/29/2023 9:15 AM EST Immunization/Injection Hematology/Oncology Treatment, [place] [address] [place] [address] Nurse, Med [address] [place] [address] 07/31/2023 8:30 AM EST Laboratory Laboratory [facility] [address] [place] [phone] Park, Lab Scenery [address] [place] [address] 07/31/2023 9:00 AM EST Nurse Only Hematology/Oncology Scenery [facility] [address] [place] [address] Park, Nurse Hem Onc Scenery [address] [place] [address] 07/31/2023 9:15 AM EST Immunization/Injection Hematology/Oncology Treatment, [place] [address] [place] [address] Nurse, Med [address] [place] [address] 08/05/2023 8:30 AM EST Laboratory Laboratory [facility] [address] [place] [phone] Park, Lab Scenery [address] [place] [address] 08/05/2023 9:00 AM EST Nurse Only Hematology/Oncology Scenery [facility] [address] [place] [address] Park, Nurse Hem Onc Scenery [address] [place] [address] 08/07/2023 8:30 AM EST Laboratory Laboratory Scenery [facility] [address] [place] [phone] Park, Lab Scenery [address] [place] [address] 08/07/2023 9:00 AM EST Nurse Only Hematology/Oncology Scenery [facility] [address] [place] [address] Park, Nurse Hem Onc Scenery [address] [place] [address] 08/11/2023 8:30 AM EST Laboratory Laboratory Scenery [facility] [address] [place] [address] Park, Lab Scenery [address] [place] [address] 08/11/2023 9:00 AM EST Nurse Only Hematology/Oncology Scenery [facility] [address] [place] [address] Park, Nurse Hem Onc Scenery [address] [place] [address] 08/14/2023 8:30 AM EST Laboratory Laboratory [facility] [address] [place] [phone] Park, Lab Scenery [address] [place] [address] 08/14/2023 9:00 AM EST Nurse Only Hematology/Oncology Scenery [facility] [address] [place] [address] Park, Nurse Hem Onc Scenery [address] [place] [address] 08/18/2023 8:30 AM EST Laboratory Laboratory Scenery [facility] [address] [place] [address] Park, Lab Scenery [address] [place] [address] 08/18/2023 9:00 AM EST Nurse Only Hematology/Oncology Scenery [place] [address] [place] [address] Park, Nurse Hem Onc Scenery [address] [place] [address] 08/21/2023 8:30 AM EST Laboratory Laboratory Scenery [facility] [address] [place] [address] Park, Lab Scenery [address] [place] [address] 08/21/2023 9:00 AM EST Nurse Only Hematology/Oncology Scenery [facility] [address] [place] [address] Park, Nurse Hem Onc Scenery [address] [place] [address] 08/25/2023 8:30 AM EST Laboratory Laboratory Scenery [facility] [address] [place] [phone] Park, Lab Scenery [address] [place] [address] 08/25/2023 9:00 AM EST Nurse Only Hematology/Oncology Scenery [place] [address] [place] [address] Park, Nurse Hem Onc Scenery [address] [place] [address] 08/29/2023 9:15 AM EST Office Visit Hematology/Oncology Scenery [facility] [address] [place] [address] Berlin Killian MD [address] [place] [address] 09/02/2023 12:15 PM EST Office Visit Otolaryngology [facility] [address] [place] [address] Wendi Cummings MD [address] [place] [address] 10/03/2023 10:30 AM EST Telemedicine Urology Zhou Yap [address] [place] [address] Kd Dickens MD [address] [place] [address] 7, Telemed [facility] Urology Ex Rm [address] [place] [address] 03/18/2024 11:00 AM EDT Office Visit Dermatology [facility] [address] [place] [address] Erica Rashid MD [address] [facility] [place] [address] Health Maintenance Due Date Last Done Comments [...] this encounter Medical Devices Implanted Type Area Nursing Home Physician Device Identifier Shelf Expiration Date Model / Serial / Lot Port Implant W/8f Poly Cath - [id number] Implanted:Qty : 1 on 11/23/2021 by Tae Porras DO at OR [facility] Right: Chest CR BARD : PERIPHERAL [employer] [id number] 09/03/2022 [id number] / / [id number] Port Implant W/8f Poly Cath - [id number] Implanted:Qty : 1 on 12/26/2022 by Fabián Del Cid DO at OR [facility] Right: Chest CR BARD : PERIPHERAL VASCULAR [id number] 04/03/2024 [id number] / / [id number] documented as of this encounter Visit Diagnoses Diagnosis Tongue lesion- Primary Other specified conditions of the tongue documented in this encounter Advance Directives Documents on File Type Date Recorded 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 No Full Code 03/12/2022 5:18 PM 03/15/2022 7:16 PM This o rder reflects the patients wishes and were consensually agreed upon. Question Answer Comments Discussion of Advance Directives occurred with: Patient Does the patient have a Living Will? No Does the patient have Health Care Power of Catering Service Manager? No Full Code 12/04/2021 5:18 PM 01/22/2022 8:17 PM This o rder reflects the patients wishes and were consensually agreed upon. Question Answer Comments Discussion of Advance Directives occurred with: Patient Does the patient have a Living Will? No Does the patient have Health Care Power of Catering Service Manager? No Care Teams Nurse Staff Relationship Specialty Start Date End Date Anthony Rico III, MD [address] [place] [place] [address] PCP - General 03/18/1996 documented as of this encounter
--- OUTSIDE RECORDS SUMMARY | 2023-07-24 14:20 | External Medical Summary ---
Author Name Unknown Address Unknown Organization K09:[facility] [address] [place] [address] Laboratory Report Ordering Provider Test Date Status FIORDALIZA MAX 07/21/2023 08:36:13 Final Observation Date Value Abnormality Reference (Units ) Status BUN 07/21/2023 08:36:13 16 6-20 (mg/dL) Final Creatinine 07/21/2023 08:36:13 1.0 0.6-1.2 (mg/dL) Final Glomerular filtration rate/1.73 sq M.predicted [Volume Rate/Area] in Serum, Plasma or Blood by Creatinine-based formula (CKD-EPI) 07/21/2023 08:36:13 85 >=60 (mL/min) Final eGFR is calculated based on the CKD-EPI 2020 equation SODIUM 07/21/2023 08:36:13 134 Below low normal 135 -146 (mmol/L) Final Potassium 07/21/2023 08:36:13 4.2 3.5-5.1 (m mol/L) Final Cl 07/21/2023 08:36:13 95 Below low normal 98- 107 (mmol/L) Final CO2 07/21/2023 08:36:13 26 22-32 (mmo l/L) Final Anion gap 07/21/2023 08:36:13 13 7-15 (mmol /L) Final Glucose 07/21/2023 08:36:13 199 Above high normal 70 -120 (mg/dL) Final Albumin 07/21/2023 08:36:13 3.4 Below low normal 3.8 -5.0 (g/dL) Final AST (Aspartate aminotransferase) 07/21/2023 08:36:13 24 10-50 (U/L) Fin al Alk Phos 07/21/2023 08:36:13 165 Above high normal 35 -130 (U/L) Final Bilirubin, Total 07/21/2023 08:36:13 0.4 <=1 .2 (mg/dL) Final Calcium 07/21/2023 08:36:13 8.6 8.4-10.2 ( mg/dL) Final Protein 07/21/2023 08:36:13 6.1 6.0-8.3 (g /dL) Final ALT (Alanine aminotransferase) 07/21/2023 08:36:13 23 10-50 (U/L) Uvaldo sandoval Performing Location [facility] [address] [place] [address]
--- OUTSIDE RECORDS SUMMARY | 2023-07-24 14:20 | External Medical Summary | Summary of Care ---
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) Procedures DE INJECTION, [place] Steinberg MD [address] [place] [address] Anc Hem/Onc [facility] [address] [place] [address] Referral ID Status Reason Start Date Expiration Date V isits Requested Visits Authorized [id number] Authorized 07/15/2023 08/03/2024 [id number] Encounter Details Date Type Department Care Team (Late st Contact Info) Description 07/21/2023 9:15 AM EST Immunization/I njection Hematology/Oncology Treatment, [place] [address] [place] [address] Nurse, Med 200 [facility] [place] [address] Chemotherapy-induced neutropenia *; Acute myeloid leukemia in remission (HCC) Allergies Active Allergy Reactions Criticality Noted Date Comments Bee Venom Low 10/07/2018 Other reaction(s): SWELLING Nitrofurantoin Monohyd Macro Other (Please comment) 02/14/2014 "Flu-like symptoms, Headache, Fever, Red dots on skin-on legs mainly" Happened during end of 10 day course. documented as of this encounter (statuses as of 07/21/2023) Medications Medication Sig Dispensed Refills Start Date [...] bedtime. 180 Tablet 1 06/23/2023 Active Nystatin 925486 UNIT/ML Mouth/Throat Suspension Swish and swallow 5 mL in the morning and 5 mL before bedtime. 1000 mL 1 06/24/2023 Active Losartan Potassium 100 MG Oral Tablet [...] by mouth in the morning. 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 Administered in PK. Pt tolerated well. To return in 3 days. Discharged in stable condition. documented in this encounter Plan of Treatment Upcoming Encounters Date Type Department Care Team (Late st Contact Info) Description 07/22/2023 1:15 PM EST Office Visit Otolaryngology [facility] [address] [place] [address] Wendi Cummings MD [address] [place] [address] 07/24/2023 8:30 AM EST Laboratory Laboratory [facility] [place] [address] [place] [phone] Park, Lab Scenery [address] [place] [address] 07/24/2023 9:00 AM EST Nurse Only Hematology/Oncology [facility] [place] [address] [place] [address] Park, Nurse Hem Onc Scenery [address] [place] [address] 07/24/2023 9:15 AM EST [facility] [address] [place], [place] [address] Nurse, Med 4 [address] [place], [place] [address] 07/24/2023 9:40 AM EST Office Visit Family Practice [facility] [place] [address] [place] [address] JakcyAnthony avila III, MD [address] [place] [address] 07/29/2023 8:30 AM EST Laboratory Laboratory [facility] [place] [address] [place] [phone] Dorothy, Lab Scenery [address] [facility] [place] [address] 07/29/2023 9:00 AM EST Nurse Only Hematology/Oncology [facility] [place] [address] [place], [place] [address] Park, Nurse Hem Onc Scenery [address] [place] [address] 07/29/2023 9:15 AM EST Immunization/Injection Hematology/Oncology Treatment, [place] [address] [place] [address] Nurse, Med 4 [address] [place] [address] 07/31/2023 8:30 AM EST [facility] [address] [place] [phone] Park, Lab Scenery [address] [place] [address] 07/31/2023 9:00 AM EST Nurse Only Hematology/Oncology [facility]ery [facility] [address] [place] [address] Park, Nurse Hem Onc Scenery [address] [place] [address] 07/31/2023 9:15 AM EST Immunization/Injection Hematology/Oncology Treatment, [place] 200 [facility] [place] [address] Nurse, Med 4 [address] [place] [address] 08/05/2023 8:30 AM EST [facility] [address] [place] [phone] Park, Lab Scenery [address] [place] [address] 08/05/2023 9:00 AM EST Nurse Only [facility] [address] [place] [address] Park, Nurse Hem Onc Scenery [address] [place] [address] 08/07/2023 8:30 AM EST Laboratory Laboratory Scenery [facility] [address] [place] [address] Park, Lab Scenery [address] [place] [address] 08/07/2023 9:00 AM EST Nurse Only Hematology/Oncology [facility]enery [facility] [address] [place] [address] Park, Nurse Hem Onc Scenery [address] [place] [address] 08/11/2023 8:30 AM EST Laboratory Laboratory [facility]enery [facility] [address] [place] [phone] Park, Lab Scenery [address] [place] [address] 08/11/2023 9:00 AM EST Nurse Only Hematology/Oncology [facility]ery [facility] [address] [place] [address] Park, Nurse Hem Onc Scenery [address] [place] [address] 08/14/2023 8:30 AM EST Laboratory Laboratory Scenery [facility] [address] [place] [address] Park, Lab Scenery [address] [place] [address] 08/14/2023 9:00 AM EST Nurse Only Hematology/Oncology [facility]enery [facility] [address] [place] [address] Park, Nurse Hem Onc Scenery [address] [place] [address] 08/18/2023 8:30 AM EST Laboratory Laboratory [facility]enery [facility] [address] [place] [address] Park, Lab Scenery [address] [place] [address] 08/18/2023 9:00 AM EST Nurse Only Hematology/Oncology [place] [address] [place] [address] Park, Nurse Hem Onc Scenery [address] [place] [address] 08/21/2023 8:30 AM EST Laboratory Laboratory Scenery [facility] [address] [place] [address] Park, Lab Scenery [address] [place] [address] 08/21/2023 9:00 AM EST Nurse Only Hematology/Oncology [place]ery [place] [address] [place] [address] Park, Nurse Hem Onc Scenery [address] [place] [address] 08/25/2023 8:30 AM EST Laboratory Laboratory Scenery [place] [address] [place] [address] Park, Lab Scenery [address] [place] [address] 08/25/2023 9:00 AM EST Nurse Only Hematology/Oncology [place]ery [place] [address] [place] [address] Park, Nurse Hem Onc Scenery [address] [place] [address] 08/29/2023 9:15 AM EST Office Visit Hematology/Oncology [place]ery [place] [address] [place] [address] [place] Killian MD [address] [place] [address] 10/03/2023 10:30 AM EST Telemedicine Urology Zhou Yap [address] [place] [address] Kd Dickens MD [address] [place] [address] 7, Telemed [facility] Urology Ex Rm [address] [place] [address] 03/18/2024 11:00 AM EDT Office Visit Dermatology [facility] [place] 200 [facility] [place] [address] Erica Rashid MD 200 [facility] [place] [address] Health Maintenance Due Date Last Done Comments [...] this encounter Medical Devices Implanted Type Area Health Careers Instructor Device Identifier Shelf Expiration Date Model / Serial / Lot Port Implant W/8f Poly Cath - [id number] Implanted:Qty : 1 on 11/23/2021 by Tae Porras DO at OR [facility] Right: Chest CR BARD : PERIPHERAL VASCULAR [id number] 09/03/2022 [id number] / / [id number] Port Implant W/8f Poly Cath - [id number] Implanted:Qty : 1 on 12/26/2022 by Fabián Del Cid DO at OR [facility] Right: Chest CR BARD : PERIPHERAL VASCULAR [id number] 04/03/2024 [id number] / / [id number] documented as of this encounter Visit Diagnoses Diagnosis Chemotherapy-induced neutropenia- Primary Drug induced neutropenia Acute myeloid leukemia in remission (HCC) Acute myeloid leukemia in remission documented in this encounter Administered Medications Inactive Administered Medications - up to 3 most recent administrations Medication Order MAR Action Action Date Dose Rate Site Filgrastim-sndz (Zarxio) inj 480 mcg 480 mcg, Subcutaneous, ONCE, On 07/21/23 at 0930, For 1 dose, In Refrigerator Given 07/21/2023 8:53 AM EST 480 mcg Arm Right Upper documented in this encounter Advance Directives Documents on File Type Date Recorded 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 No Full Code 03/12/2022 5:18 PM 03/15/2022 7:16 PM This o rder reflects the patients wishes and were consensually agreed upon. Question Answer Comments Discussion of Advance Directives occurred with: Patient Does the patient have a Living Will? No Does the patient have Health Care Power of Environmental Programs Manager? No Full Code 12/04/2021 5:18 PM 01/22/2022 8:17 PM This o rder reflects the patients wishes and were consensually agreed upon. Question Answer Comments Discussion of Advance Directives occurred with: Patient Does the patient have a Living Will? No Does the patient have Health Care Power of Environmental Programs Manager? No Care Teams Environment Artist Relationship Specialty Start Date End Date Anthony Rico III, MD 200 [facility] [place] [address] PCP - General 03/18/1996 documented as of this encounter
--- OUTSIDE RECORDS SUMMARY | 2023-07-24 14:20 | External Medical Summary ---
Author Name Unknown Address Unknown Organization K09:[facility] [place] [address] Laboratory Report Ordering Provider Test Date Status WINTERFIORDALIZA VALLEJO 07/21/2023 08:36:13 Final Observation Date Value Abnormality Reference (Units ) Status Nucleated erythrocytes/100 leukocytes [Ratio] in Blood by Automated count 07/21/2023 08:36:13 Final Performing Location [facility] [place] [place] [address]
--- OUTSIDE RECORDS SUMMARY | 2023-07-24 14:20 | External Medical Summary ---
Author Name Unknown Address Unknown Organization K09:[facility] [place] [address] Laboratory Report Ordering Provider Test Date Status FIORDALIZA MAX 07/21/2023 08:36:13 Final Observation Date Value Abnormality Reference (Units ) Status COMMENT 07/21/2023 08:36:13 WBC < 0.60, WBC differential cancelled. Please call Client Services if differential is required. Final Performing Location [facility] [place] [address]
--- OUTSIDE RECORDS SUMMARY | 2023-07-24 14:20 | External Medical Summary | Summary of Care ---
Author Name Unknown Organization [facility] Address [address] [facility] [place] [address] Phone [phone] Care Team Providers Care Gantry Rigger Name Role Phone Jacky THOMAS MD, Anthony Moctezuma Primary Care Provider [phone] Encounter Details Date Type Department Care Team (Late st Contact Info) Description 07/21/2023 9:00 AM EST Nurse Only Hematology/Oncology [place] [address] [place] [address] Park, Nurse Hem Onc Scenery [address] [place] [address] Arrived Allergies Active Allergy Reactions Criticality Noted [...] bedtime. 180 Tablet 1 06/23/2023 Active Nystatin 010141 UNIT/ML Mouth/Throat Suspension Swish and swallow 5 [...] below 70 01/01/2012 Anticoagulation management encounter 09/05/2010 shelter current use of anticoagulant therapy 0 09/05/2010 [...] mRNA, LNP-s, No Pre serve, 2-Dose Series ([employer]) 06/19/2021,10/24/2020,10/03/2020 H1N1 2009 Influenza, IM 06/14/2009 Hepatitis [...] as of this encounter Progress Notes * Michael Sigala RN - 07/21/2023 9:37 AM EST Pt HGB 7.0, PLT <10 --- Pt agreeable to infusion of RBC and Platelets. Called blood bank and spoke with Ellyn- have platelets ready today but no blood in house, will be able to transfuse blood tomorrow. Called [facility]- Spoke with Rocio. Pt scheduled for 11:30am today. She would notify scheduling. Orders faxed and copies given to patient. documented in this encounter Plan of Treatment Upcoming Encounters Date Type Department Care Team (Late st Contact Info) Description 07/22/2023 1:15 PM EST Office Visit Otolaryngology [facility] [address] [place] [address] Wendi Cummings MD [address] [place] [address] 07/24/2023 8:30 AM EST Laboratory Laboratory [facility] [place] [address] [place] [address] Park, Lab Scenery [address] [place] [address] 07/24/2023 9:00 AM EST Nurse Only Hematology/Oncology [facility] [place] [address] [place], [place] [address] Park, Nurse Hem Onc Scenery [address] [place], [place] [address] 07/24/2023 9:15 AM EST Immunization/Injection Hematology/Oncology Treatment, [place] 200 [place] [address] Nurse, Med 4 [address] [place], [place] [address] 07/24/2023 9:40 AM EST Office Visit [facility] [address] [place], [place] [address] [place] Anthony THOMAS MD [address] [place], [place] [address] 07/29/2023 8:30 AM EST Laboratory Laboratory [facility] [place] [address] [place], [place] [phone] [place], Lab Scenery [address] [facility] [place] [address] 07/29/2023 9:00 AM EST Nurse Only Hematology/Oncology [facility] [place] [address] [place] [address] Park, Nurse Hem Onc Scenery [address] [place] [address] 07/29/2023 9:15 AM EST Immunization/Injection Hematology/Oncology Treatment, [place] 200 [place] [address] Nurse, Med 4 [address] [place], [place] [address] 07/31/2023 8:30 AM EST Laboratory Laboratory Scenery [facility] [address] [place] [address] Park, Lab Scenery [address] [place] [address] 07/31/2023 9:00 AM EST Nurse Only Hematology/Oncology Scenery [facility] [address] [place] [address] Park, Nurse Hem Onc Scenery [address] [place] [address] 07/31/2023 9:15 AM EST Immunization/Injection Hematology/Oncology Treatment, [place] [address] [place] [address] Nurse, Med 4 [address] [place] [address] 08/05/2023 8:30 AM EST Laboratory Laboratory [facility] [place] [address] [place] [address] Park, Lab Scenery [address] [place] [address] 08/05/2023 9:00 AM EST Nurse Only Hematology/Oncology [facility] [place] [address] [place] [address] Park, Nurse Hem Onc Scenery [address] [place] [address] 08/07/2023 8:30 AM EST Laboratory Laboratory [facility] [address] [place] [address] Park, Lab Scenery [address] [place] [address] 08/07/2023 9:00 AM EST Nurse Only Hematology/Oncology [place] [place] [address] [place] [address] Park, Nurse Hem Onc Scenery [address] [place] [address] 08/11/2023 8:30 AM EST Laboratory Laboratory Scenery [facility] [address] [place] [phone] Park, Lab Scenery [address] [place] [address] 08/11/2023 9:00 AM EST Nurse Only Hematology/Oncology Scenery [facility] [address] [place] [address] Park, Nurse Hem Onc Scenery [address] [place] [address] 08/14/2023 8:30 AM EST Laboratory Laboratory Scenery [facility] [address] [place] [address] Park, Lab Scenery [address] [place] [address] 08/14/2023 9:00 AM EST Nurse Only Hematology/Oncology Scenery [facility] [address] [place] [address] Park, Nurse Hem Onc Scenery [address] [place] [address] 08/18/2023 8:30 AM EST Laboratory Laboratory Scenery [facility] [address] [place] [address] Park, Lab Scenery [address] [place] [address] 08/18/2023 9:00 AM EST Nurse Only Hematology/Oncology Scenery [facility] [address] [place] [address] Park, Nurse Hem Onc Scenery [address] [place] [address] 08/21/2023 8:30 AM EST Laboratory Laboratory Scenery [facility] [address] [place] [address] Park, Lab Scenery [address] [place] [address] 08/21/2023 9:00 AM EST Nurse Only Hematology/Oncology [facility] [place] [address] [place], [place] [address] Park, Nurse Hem Onc Scenery [address] [place] [address] 08/25/2023 8:30 AM EST Laboratory Laboratory [facility] [place] [address] [place] [address] [place], Lab Scenery [address] [place] [address] 08/25/2023 9:00 AM EST Nurse Only Hematology/Oncology [facility] [place] [address] [place] [address] Park, Nurse Hem Onc Scenery [address] [place] [address] 08/29/2023 9:15 AM EST Office Visit Hematology/Oncology [facility] [place] [address] [place] [address] [place] Killian MD [address] [place] [address] 10/03/2023 10:30 AM EST Telemedicine Urology Zhou Yap [address] [place] [address] Kd Dickens MD [address] [place] [address] 7, Telemed [facility] Urology Ex Rm [address] [place] [address] 03/18/2024 11:00 AM EDT Office Visit Dermatology [facility] [place] [address] [place], [place] [address] Erica Rashid MD [address] [place] [address] Health Maintenance Due Date Last Done Comments [...] this encounter Medical Devices Implanted Type Area Information Systems Technician Device Identifier Shelf Expiration Date Model / Serial / Lot Port Implant W/8f Poly Cath - [id number] Implanted:Qty : 1 on 11/23/2021 by Tae Porras, DO at OR [facility] Right: Chest CR BARD : PERIPHERAL VASCULAR [id number] 09/03/2022 [id number] / / [id number] Port Implant W/8f Poly Cath - [id number] Implanted:Qty : 1 on 12/26/2022 by Fabián Del Cid, DO at OR [facility] Right: Chest CR BARD : PERIPHERAL VASCULAR [id number] 04/03/2024 [id number] / / [id number] documented as of this encounter Advance Directives Documents on File Type Date Recorded Patient Pen Rider Expl anation Power of Helicopter Specialist 06/06/2022 POWER OF A TTORNEY Latest [...] the patient have Health Care Power of Helicopter Specialist? No Full Code 03/12/2022 5:18 PM 03/15/2022 7:16 PM This o rder reflects the patients wishes and were consensually agreed upon. Question Answer Comments Discussion of Advance Directives occurred with: Patient Does the patient have a Living Will? No Does the patient have Health Care Power of Helicopter Specialist? No Full Code 12/04/2021 5:18 PM 01/22/2022 8:17 PM This o rder reflects the patients wishes and were consensually agreed upon. Question Answer Comments Discussion of Advance Directives occurred with: Patient Does the patient have a Living Will? No Does the patient have Health Care Power of Helicopter Specialist? No Care Teams Gantry Rigger Relationship Specialty Start Date End Date Anthony Rico III, MD [address] [place] [address] PCP - General 03/18/1996 documented as of this encounter
--- OUTSIDE RECORDS SUMMARY | 2023-07-24 14:20 | External Medical Summary ---
Author Name Unknown Address Unknown Organization K01:[facility] [place] [facility] [address] [place] [address] Laboratory Report Ordering Provider Test Date Status FIORDALIZA MAX 07/21/2023 08:36:13 Final Observation Date Value Abnormality Reference (Units ) Status Uric Acid 07/21/2023 08:36:13 3.0 Below low normal 3.4 -7.0 (mg/dL) Final Performing Location [facility] [place] [facility] [address] [place] [address]
--- OUTSIDE RECORDS SUMMARY | 2023-07-24 14:20 | External Medical Summary | Summary of Care ---
Author Name Unknown Organization [facility] Address [address] [facility] [place] [address] Phone [phone] Care Team Providers Care Case Monitor Name Role Phone Jacky THOMAS MD, Anthony Moctezuma Primary Care Provider [phone] Encounter Details Date Type Department Care Team (Late st Contact Info) Description 07/22/2023 Orders Only Hematology/Oncology [facility] [place] [address] [facility] [address] Nevaeh Cobian CRNP [address] [place] [address] Acute myeloid leukemia in remission (HCC)* Allergies [...] bedtime. 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 0 09/05/2010 [...] mRNA, LNP-s, No Pre serve, 2-Dose Series ([email or web address]) 06/19/2021,10/24/2020,10/03/2020 H1N1 2009 Influenza, IM 06/14/2009 Hepatitis [...] 07/22/2023 1:15 PM EST Office Visit Otolaryngology [facility] [address] [place] [address] Wendi Cummings MD [address] [place] [address] 07/24/2023 8:30 AM EST Laboratory Laboratory [facility] [place] [address] [place] [phone] [place], Lab [place] [address] [place] [facility] [place] [address] 07/24/2023 9:00 AM EST Nurse Only Hematology/Oncology [facility] [place] [address] [place] [address] Dorothy, Nurse Hem Onc [place] [address] [place] [address] 07/24/2023 9:15 AM EST [facility]ization[facility] 200 [place] [place] [address] Nurse, Med [address] [place] [address] 07/29/2023 8:30 AM EST Laboratory Laboratory [facility] [address] [place] [address] Park, Lab Scenery [address] [place] [address] 07/29/2023 9:00 AM EST Nurse Only Hematology/Oncology [facility] [address] [place] [address] Park, Nurse Hem Onc Scenery [address] [place] [address] 07/29/2023 9:15 AM EST Immunization/Injection Hematology/Oncology Treatment, [place] 200 [place] [place] [address] Nurse, Med 4 [address] [place] [address] 07/31/2023 8:30 AM EST Laboratory Laboratory [facility] [address] [place] [address] Park, Lab Scenery [address] [place] [address] 07/31/2023 9:00 AM EST Nurse Only Hematology/Oncology [facility] [address] [place] [address] Park, Nurse Hem Onc Scenery [address] [place] [address] 07/31/2023 9:15 AM EST Immunization/Injection Hematology/Oncology Treatment, [place] 200 [facility] [place] [address] Nurse, Med 4 [address] [place] [address] 08/05/2023 8:30 AM EST Laboratory Laboratory Scenery [facility] [address] [place] [address] Park, Lab Scenery [address] [place] [address] 08/05/2023 9:00 AM EST Nurse Only Hematology/Oncology Scenery [facility] [address] [place] [address] Park, Nurse Hem Onc Scenery [address] [place] [address] 08/07/2023 8:30 AM EST Laboratory Laboratory Scenery [facility] [address] [place] [address] Park, Lab Scenery [address] [place] [address] 08/07/2023 9:00 AM EST Nurse Only Hematology/Oncology Scenery [facility] [address] [place] [address] Park, Nurse Hem Onc Scenery [address] [place] [address] 08/11/2023 8:30 AM EST Laboratory Laboratory Scenery [facility] [address] [place] [address] Park, Lab Scenery [address] [place] [address] 08/11/2023 9:00 AM EST Nurse Only Hematology/Oncology Scenery [facility] [address] [place] [address] Park, Nurse Hem Onc Scenery [address] [place] [address] 08/14/2023 8:30 AM EST Laboratory Laboratory Scenery [facility] [address] [place] [address] Park, Lab Scenery [address] [place] [address] 08/14/2023 9:00 AM EST Nurse Only Hematology/Oncology Scenery [facility] [address] [place] [address] Park, Nurse Hem Onc Scenery [address] [place] [address] 08/18/2023 8:30 AM EST Laboratory Laboratory [address] [place] [address] [place] [address] Park, Lab Scenery [address] [place] [address] 08/18/2023 9:00 AM EST Nurse Only Hematology/Oncology Scenery [facility] [address] [place] [address] Park, Nurse Hem Onc Scenery [address] [place] [address] 08/21/2023 8:30 AM EST Laboratory Laboratory Scenery [facility] [address] [place] [address] Park, Lab Scenery [address] [place] [address] 08/21/2023 9:00 AM EST Nurse Only Hematology/Oncology [facility] [place] [address] [place] [address] Park, Nurse Hem Onc Scenery [address] [place] [address] 08/25/2023 8:30 AM EST Laboratory Laboratory Scenery [facility] [address] [place] [address] Park, Lab Scenery [address] [place] [address] 08/25/2023 9:00 AM EST Nurse Only Hematology/Oncology Scenery [facility] [address] [place] [address] Park, Nurse Hem Onc [place] [address] [place], [place] [address] 08/29/2023 9:15 AM EST Office Visit Hematology/Oncology [facility] [place] [address] [place] [address] Berlin Killian MD [address] [place], [place] [address] 10/03/2023 10:30 AM EST Telemedicine Urology [address] [place] [address] Kd Dickens MD [address] [place] [address] 7, Telemed [facility] Urology Ex Rm [address] [place] [address] 03/18/2024 11:00 AM EDT Office Visit Dermatology [facility] [place] [address] [place], [place] [address] Erica Rashid MD [address] [place], [place] [address] Health Maintenance Due Date Last Done Comments [...] this encounter Medical Devices Implanted Type Area Tailings Man Device Identifier Shelf Expiration Date Model / Serial / Lot Port Implant W/8f Poly Cath - [id number] Implanted:Qty : 1 on 11/23/2021 by Tae Porras DO at OR [facility] Right: Chest CR BARD : PERIPHERAL VASCULAR [id number] 09/03/2022 [id number] / / [id number] Port Implant W/8f Poly Cath - [id number] Implanted:Qty : 1 on 12/26/2022 by Fabián Del Cid DO at OR [facility] Right: Chest CR BARD : PERIPHERAL VASCULAR [id number] 04/03/2024 [id number] / / [id number] documented as of this encounter Visit Diagnoses Diagnosis Acute myeloid leukemia in remission (HCC)- Primary Acute myeloid leukemia in remission documented in this encounter Advance Directives Documents on File Type Date Recorded Patient Mat Tester Expl anation Power of Neonatal Specialist 06/06/2022 POWER OF A TTORNEY Latest [...] the patient have Health Care Power of Neonatal Specialist? No Full Code 03/12/2022 5:18 PM 03/15/2022 7:16 PM This o rder reflects the patients wishes and were consensually agreed upon. Question Answer Comments Discussion of Advance Directives occurred with: Patient Does the patient have a Living Will? No Does the patient have Health Care Power of Neonatal Specialist? No Full Code 12/04/2021 5:18 PM 01/22/2022 8:17 PM This o rder reflects the patients wishes and were consensually agreed upon. Question Answer Comments Discussion of Advance Directives occurred with: Patient Does the patient have a Living Will? No Does the patient have Health Care Power of Neonatal Specialist? No Care Teams Case Monitor Relationship Specialty Start Date End Date Anthony Rico III, MD 200 [place] [address] PCP - General 03/18/1996 documented as of this encounter
--- OUTSIDE RECORDS SUMMARY | 2023-07-24 14:20 | External Medical Summary ---
Author Name Unknown Address Unknown Organization K01:[facility] [address] [place] [address] Laboratory Report Ordering Provider Test Date Status FIORDALIZA MAX 07/21/2023 08:36:13 Final Observation Date Value Abnormality Reference (Units ) Status LDH 07/21/2023 08:36:13 358 Above high normal <= 250 (U/L) Final Performing Location [facility] - [address] [place] [address]
--- OUTSIDE RECORDS SUMMARY | 2023-07-24 14:20 | External Medical Summary | Summary of Care ---
Author Name Unknown Organization [facility] Address [address] [facility] [place] [address] Phone [phone] Care Team Providers Care Materials Manager Name Role Phone Jacky THOMAS MD, Anthony Moctezuma Primary Care Provider [phone] Encounter Details Date Type Department Care Team (Late st Contact Info) Description 07/17/2023 9:00 AM EST Nurse Only Hematology/Oncology [place] [address] [place] [address] Park, Nurse Hem Onc Scenery [address] [place] [address] Arrived Allergies Active Allergy Reactions Criticality Noted Date Comments Bee Venom Low 10/07/2018 Other reaction(s): SWELLING Nitrofurantoin Monohyd Macro Other (Please comment) 02/14/2014 "Flu-like symptoms, Headache, Fever, Red dots on skin-on legs mainly" Happened during end of 10 day course. documented as of this encounter (statuses as of 07/17/2023) Medications Medication Sig Dispensed Refills Start Date [...] bedtime. 180 Tablet 1 06/23/2023 Active Nystatin 121136 UNIT/ML Mouth/Throat Suspension Swish and swallow 5 [...] a day. 180 Capsule 0 07/15/2023 Active levoFLOXacin 500 MG Oral Tablet Take 1 Tablet by mouth in the morning. 0 Active Cefpodoxime Proxetil 200 MG Oral TabletIndication s:Acute myeloid leukemia in remission (HCC) Take 1 Tablet by mouth in the morning and 1 Tablet before bedtime. 180 Tablet 1 06/23/2023 3 Discontinued Hospital, Clinic, or Other Facility Administered Medication [...] as of this encounter (statuses as of 07/17/2023) Active Problems Problem Noted Date Diagnosed Date [...] as of this encounter (statuses as of 07/17/2023) Resolved Problems Problem Noted Date Diagnosed Date [...] as of this encounter (statuses as of 07/17/2023) Immunizations Name Administration Dates Next Due COVID-19 [...] Split, I IV3, With Preserve, Inj 04/13/2015,04/06/2014,04/24/2013,04/10,05/28/2011,05/10/2010,05/04/2009 ,05/12/2008,05/18/2007,06/11/2006,1108/2004,08/13/2004,06/01/2003, 9,05/17/1998,05/31/1997 Seasonal Influenza, Trivalen t, High Dose, [...] as of this encounter Nursing Notes * Day Garcia RN - 07/17/2023 9:26 AM EST Patient to receive 1 unit plt for plt <10. Called [facility] blood bank ([place]). They have platelets. Called [facility] (Haylee) and central scheduling (Clary). Patient scheduled for today at 10am. Patient verbalized understanding of appt time. Faxed order to [facility]/ blood bank. Patient reports fever 101.[address] Killian to see patient. documented in this encounter Miscellaneous Notes * Addendum Note - Day Garcia RN - 07/17/2023 2:02 PM ESTAddended by: DAY GARCIA on: 07/17/2023 02:02 PM Modules accepted: Orders documented in this encounter Plan of Treatment Upcoming Encounters Date Type Department Care Team (Late st Contact Info) Description 07/21/2023 8:30 AM EST Laboratory Laboratory [facility] [place] [address] [place] [phone] Dorothy, Lab [place] [facility] [place] [address] 07/21/2023 9:00 AM EST Nurse Only Hematology/Oncology [facility] [place] [address] [place] [address] Dorothy, Nurse Hem Onc [facility] [address] [place] [address] 07/21/2023 9:15 AM EST Immunization/Injection Hematology/Oncology Treatment, [place] [address] [place], [place] [address] Nurse, Med 4 [address] [place] [address] 07/22/2023 1:15 PM EST Office Visit Otolaryngology [facility] 132 [facility] [place] [address] Wendi Cummings MD 132 [facility] [place] [address] 07/24/2023 8:30 AM EST Laboratory Laboratory [facility] [place] [address] [place] [address] Dorothy Lab Scenery [address] [facility] [place] [address] 07/24/2023 9:00 AM EST Nurse Only Hematology/Oncology [facility] [place] [address] [place] [address] Park, Nurse Hem Onc Scenery [address] [place] [address] 07/24/2023 9:15 AM EST Immunization/Injection Hematology/Oncology Treatment, [place] 200 [place] [address] Nurse, Med 4 [address] [place] [address] 07/24/2023 9:40 AM EST Office Visit Family Practice [facility] [address] [place] [address] [place] III, Anthony Moctezuma MD [address] [place] [address] 07/29/2023 8:30 AM EST Laboratory Laboratory [facility] [address] [place] [address] Dorothy, Lab Scenery [address] [place] [address] 07/29/2023 9:00 AM EST Nurse Only Hematology/Oncology [facility] [place] [address] [place] [address] Park, Nurse Hem Onc Scenery [address] [place] [address] 07/29/2023 9:15 AM EST Immunization/Injection Hematology/Oncology Treatment, [place] 200 [place] [address] Nurse, Med 4 [address] [place] [address] 07/31/2023 8:30 AM EST Laboratory Laboratory [facility] [address] [place] [phone] Park, Lab Scenery [address] [place] [address] 07/31/2023 9:00 AM EST Nurse Only Hematology/Oncology [facility] [address] [place] [address] Park, Nurse Hem Onc Scenery [address] [place] [address] 07/31/2023 9:15 AM EST Immunization/Injection Hematology/Oncology Treatment, [place] [address] [place] [address] Nurse, Med 4 [address] [place] [address] 08/05/2023 8:30 AM EST Laboratory Laboratory Scenery [facility] [address] [place] [address] Park, Lab Scenery [address] [place] [address] 08/05/2023 9:00 AM EST Nurse Only Hematology/Oncology [facility] [place] [address] [place] [address] Park, Nurse Hem Onc Scenery [address] [place] [address] 08/07/2023 8:30 AM EST Laboratory Laboratory [address] [place] [address] [place] [address] Park, Lab Scenery [address] [place] [address] 08/07/2023 9:00 AM EST Nurse Only Hematology/Oncology [facility] [address] [place] [address] Park, Nurse Hem Onc Scenery [address] [place] [address] 08/11/2023 8:30 AM EST Laboratory Laboratory Scenery [facility] [address] [place] [address] Park, Lab Scenery [address] [place] [address] 08/11/2023 9:00 AM EST Nurse Only Hematology/Oncology [facility]ery [facility] [address] [place] [address] Park, Nurse Hem Onc Scenery [address] [place] [address] 08/14/2023 8:30 AM EST Laboratory Laboratory Scenery [facility] [address] [place] [address] Park, Lab Scenery [address] [place] [address] 08/14/2023 9:00 AM EST Nurse Only Hematology/Oncology [facility]enery [facility] [address] [place] [address] Park, Nurse Hem Onc Scenery [address] [place] [address] 08/18/2023 8:30 AM EST Laboratory Laboratory Scenery [facility] [address] [place] [address] Park, Lab Scenery [address] [place] [address] 08/18/2023 9:00 AM EST Nurse Only Hematology/Oncology Scenery [facility] [address] [place] [address] Park, Nurse Hem Onc Scenery [address] [place] [address] 08/21/2023 8:30 AM EST Laboratory Laboratory Scenery [facility] [address] [place] [address] Park, Lab Scenery [address] [place] [address] 08/21/2023 9:00 AM EST Nurse Only Hematology/Oncology Scenery [facility] [address] [place] [address] Park, Nurse Hem Onc Scenery [address] [place], [place] [address] 08/25/2023 8:30 AM EST Laboratory Laboratory [facility] [place] [address] [place], [place] [address] [place], Lab Scenery [address] [facility] [place], [place] [address] 08/25/2023 9:00 AM EST Nurse Only Hematology/Oncology [facility] [place] [address] [place], [place] [address] Park, Nurse Hem Onc Scenery [address] [place], [place] [address] 08/29/2023 9:15 AM EST Office Visit Hematology/Oncology [facility] [place] [address] [place], [place] [address] [place] Killian MD [address] [place] [address] 10/03/2023 10:30 AM EST Telemedicine Urology Zhou [address] [place] [address] Kd Dickens MD [address] [place] [address] 7, Telemed [facility] Urology Ex Rm [address] [facility] [place] [address] 03/18/2024 11:00 AM EDT Office Visit Dermatology [facility] [place] [address] [place], [place] [address] Erica Rashid MD [address] [place], [place] [address] Health Maintenance Due Date Last Done Comments [...] this encounter Medical Devices Implanted Type Area Temperature Regulator Pyrometer Device Identifier Shelf Expiration Date Model / Serial / Lot Port Implant W/8f Poly Cath - [id number] Implanted:Qty : 1 on 11/23/2021 by Tae Porras, DO at OR [facility] Right: Chest CR BARD : PERIPHERAL VASCULAR [id number] 09/03/2022 [id number] / / [id number] Port Implant W/8f Poly Cath - [id number] Implanted:Qty : 1 on 12/26/2022 by Fabián Del Cid, DO at OR [facility] Right: Chest CR BARD : PERIPHERAL VASCULAR [id number] 04/03/2024 [id number] / / [id number] documented as of this encounter Advance Directives Documents on File Type Date Recorded Patient Type Cutter Expl anation Power of Receiving Associate 06/06/2022 POWER OF A TTORNEY Latest [...] the patient have Health Care Power of Receiving Associate? No Full Code 03/12/2022 5:18 PM 03/15/2022 7:16 PM This o rder reflects the patients wishes and were consensually agreed upon. Question Answer Comments Discussion of Advance Directives occurred with: Patient Does the patient have a Living Will? No Does the patient have Health Care Power of Receiving Associate? No Full Code 12/04/2021 5:18 PM 01/22/2022 8:17 PM This o rder reflects the patients wishes and were consensually agreed upon. Question Answer Comments Discussion of Advance Directives occurred with: Patient Does the patient have a Living Will? No Does the patient have Health Care Power of Receiving Associate? No Care Teams Materials Manager Relationship Specialty Start Date End Date Anthony Rico III, MD [address] [place] [address] PCP - General 03/18/1996 documented as of this encounter
--- OUTSIDE RECORDS SUMMARY | 2023-07-24 14:20 | External Medical Summary ---
Author Name Unknown Address Unknown Organization K09:[facility] [place] [address] Laboratory Report Ordering Provider Test Date Status FIORDALIZA MAX 07/21/2023 08:36:13 Final Observation Date Value Abnormality Reference (Units ) Status WBC, Total 07/21/2023 08:36:13 0.22 Below lower panic limits 4.00-10.80 (K/uL) Final RBC 07/21/2023 08:36:13 2.43 4.50-5.25 (M/uL) Final Hemoglobin 07/21/2023 08:36:13 7.0 Below low normal 14.0-16.8 (g/dL) Final HCT 07/21/2023 08:36:13 21.4 Below low normal 40.0-48.4 (%) Final MCV 07/21/2023 08:36:13 88.1 82.0-99.5 (fL) Final MCH 07/21/2023 08:36:13 28.8 27.0-34.0 (pg) Final MCHC 07/21/2023 08:36:13 32.7 32.0-36.0 (g/dL) Final RDW 07/21/2023 08:36:13 13.4 11.5-15.5 (%) Final Platelets 07/21/2023 08:36:13 <10 Below lower panic limits 140-400 (K/uL) Final MPV 07/21/2023 08:36:13 9.3 6.6-11.1 (fL) Final Performing Location [facility] [place] [address]
--- OUTSIDE RECORDS SUMMARY | 2023-07-24 14:20 | External Medical Summary | Summary of Care ---
Author Name Unknown Organization [facility] Address [address] [facility] [address] Phone [phone] Care Team Providers Care Convention Manager Name Role Phone Jacky THOMAS MD, Anthony Moctezuma Primary Care Provider [phone] Reason for Visit * Reason Comments Outpatient Testing Encounter Details Date Type Department Care Team (Late st Contact Info) Description 07/21/2023 8:30 AM EST Laboratory Laboratory [facility] [place] [address] [place] [id number] [facility] [address] [place] [address] AML (acute myeloid leukemia) ([facility]) Allergies Active Allergy Reactions Criticality Noted Date [...] bedtime. 180 Tablet 1 06/23/2023 Active Nystatin 004587 UNIT/ML Mouth/Throat Suspension Swish and swallow 5 [...] mRNA, LNP-s, No Pre serve, 2-Dose Series (WeVideo) 06/19/2021,10/24/2020,10/03/2020 H1N1 2009 Influenza, IM 06/14/2009 Hepatitis [...] 07/21/2023 9:00 AM EST Nurse Only Hematology/Oncology [facility] [address] [facility] [place] [address] [place], Nurse Hem Onc [address] [place] [address] Arrived 07/21/2023 9:15 AM EST Immunization[facility] [address] [facility] [address] [place] [address] Nurse, Med [address] [facility] [place] [address] Arrived 07/22/2023 1:15 PM EST Office Visit Otolaryngology [facility] [address] [place] [address] [address] Wendi Cummings MD [address] [place] [address] 07/24/2023 8:30 AM EST Laboratory Laboratory [facility] [place] [address] [place], [place] [phone] Park, Lab Scenery [address] [place], [place] [address] 07/24/2023 9:00 AM EST Nurse Only Hematology/Oncology [facility] [place] [address] [place], [place] [address] Park, Nurse Hem Onc Scenery [address] [place], [place] [address] 07/24/2023 9:15 AM EST Immunization/Injection Hematology/Oncology Treatment, [place] 200 [facility], [place] [address] Nurse, Med 4 [address] [place], [place] [address] 07/24/2023 9:40 AM EST Office Visit Family Practice [facility] [place] [address] [place], [place] [address] Anthony Rico III, MD [address] [place], [place] [address] 07/29/2023 8:30 AM EST Laboratory Laboratory [facility] [place] [address] [place], [place] [phone] [place], Lab Scenery [address] [place] [address] 07/29/2023 9:00 AM EST Nurse Only Hematology/Oncology [facility] [place] [address] [place] [address] Park, Nurse Hem Onc Scenery [address] [place] [address] 07/29/2023 9:15 AM EST Immunization/Injection Hematology/Oncology Treatment, [place] [address] [facility] [place] [address] Nurse, Med 4 [address] [place], [place] [address] 07/31/2023 8:30 AM EST Laboratory Laboratory Scenery [facility] [address] [place] [phone] Park, Lab Scenery [address] [place] [address] 07/31/2023 9:00 AM EST Nurse Only Hematology/Oncology Scenery [facility] [address] [place] [address] Park, Nurse Hem Onc Scenery [address] [place] [address] 07/31/2023 9:15 AM EST Immunization/Injection Hematology/Oncology Treatment, [place] [address] [place] [address] Nurse, Med 4 [address] [place] [address] 08/05/2023 8:30 AM EST Laboratory Laboratory Scenery [facility] [place] [address] [place] [address] Park, Lab Scenery [address] [place] [address] 08/05/2023 9:00 AM EST Nurse Only Hematology/Oncology [facility] [place] [place] [address] [place] [address] Park, Nurse Hem Onc Scenery [address] [place] [address] 08/07/2023 8:30 AM EST Laboratory Laboratory Scenery [facility] [address] [place] [address] Park, Lab Scenery [address] [place] [address] 08/07/2023 9:00 AM EST Nurse Only Hematology/Oncology Scenery [facility] [address] [place] [address] Park, Nurse Hem Onc Scenery [address] [place] [address] 08/11/2023 8:30 AM EST Laboratory Laboratory Scenery [facility] [address] [place] [phone] Park, Lab Scenery [address] [place] [address] 08/11/2023 9:00 AM EST Nurse Only Hematology/Oncology Scenery [facility] [address] [place] [address] Park, Nurse Hem Onc Scenery [address] [place] [address] 08/14/2023 8:30 AM EST Laboratory Laboratory [facility] [address] [place] [address] Park, Lab Scenery [address] [place] [address] 08/14/2023 9:00 AM EST Nurse Only Hematology/Oncology Scenery [facility] [address] [place] [address] Park, Nurse Hem Onc Scenery [address] [place] [address] 08/18/2023 8:30 AM EST Laboratory Laboratory Scenery [facility] [address] [place] [phone] Park, Lab Scenery [address] [place] [address] 08/18/2023 9:00 AM EST Nurse Only Hematology/Oncology Scenery [facility] [address] [place] [address] Park, Nurse Hem Onc Scenery [address] [place] [address] 08/21/2023 8:30 AM EST Laboratory Laboratory Scenery [facility] [address] [place] [address] Park, Lab Scenery [address] [place] [address] 08/21/2023 9:00 AM EST Nurse Only Hematology/Oncology [facility] [address] [place], [place] [address] Park, Nurse Hem Onc Scenery [address] [place], [place] [address] 08/25/2023 8:30 AM EST Laboratory Laboratory [facility] [address] [place], [place] [phone] [facility] [place], Lab Scenery [address] [place], [place] [address] 08/25/2023 9:00 AM EST Nurse Only Hematology/Oncology [facility] [address] [place], [place] [address] Park, Nurse Hem Onc Scenery [address] [place], [place] [address] 08/29/2023 9:15 AM EST Office Visit Hematology/Oncology [facility] [address] [place], [place] [address] [place] Killian MD [address] [place], [place] [address] 10/03/2023 10:30 AM EST Telemedicine Urology Zhou Yap [address] [place] [address] [place] [address] Kd Dickens MD [address] [place] [address] [place] [address] 7, Telemed [facility] Urology Ex Rm [address] [place] [address] 03/18/2024 11:00 AM EDT Office Visit Dermatology [facility] [address] [place] [address] Erica Rashid MD 200 [facility] [place] [address] Pending Results Name Type Priority Associated Diagnoses Date /Time CBC WITH WBC DIFFERENTIAL Lab STAT AML (acute myeloid leukemia) ([facility]) 07/21/2023 8:36 AM EST COMPREHENSIVE METABOLIC PANEL Lab STAT AML (acute myeloid leukemia) ([facility]) 07/21/2023 8:36 AM EST LD Lab STAT AML (acute myeloid leukemia) ([facility]) 07/21/2023 8:36 AM EST URIC ACID Lab STAT AML (acute myeloid leukemia) ([facility]) 07/21/2023 8:36 AM EST CBC Lab STAT AML (acute myeloid leukemia) ([facility]) 07/21/2023 8:36 AM EST DIFFERENTIAL, AUTOMATED Lab STAT AML (acute myeloid leukemia) ([facility]) 07/21/2023 8:36 AM EST Health Maintenance Due Date Last [...] this encounter Medical Devices Implanted Type Area Records Assistant Device Identifier Shelf Expiration Date Model / Serial / Lot Port Implant W/8f Poly Cath - [id number] Implanted:Qty : 1 on 11/23/2021 by Tae Porras DO at OR [facility] Right: Chest CR BARD : PERIPHERAL VASCULAR [id number] 09/03/2022 [id number] / / [id number] Port Implant W/8f Poly Cath - [id number] Implanted:Qty : 1 on 12/26/2022 by Fabián Del Cid DO at OR [facility] Right: Chest CR BARD : PERIPHERAL VASCULAR [id number] 04/03/2024 [id number] / / [id number] documented as of this encounter Visit Diagnoses Diagnosis AML (acute myeloid leukemia) (HCC) Acute myeloid leukemia, without mention of having achieved remission documented in this encounter Advance Directives Documents on File Type Date Recorded Patient Case Consultant Expl anation Power of Developer Advocate 06/06/2022 POWER OF A TTORNEY Latest Code [...] the patient have Health Care Power of Developer Advocate? No Full Code 03/12/2022 5:18 PM 03/15/2022 7:16 PM This o rder reflects the patients wishes and were consensually agreed upon. Question Answer Comments Discussion of Advance Directives occurred with: Patient Does the patient have a Living Will? No Does the patient have Health Care Power of Developer Advocate? No Full Code 12/04/2021 5:18 PM 01/22/2022 8:17 PM This o rder reflects the patients wishes and were consensually agreed upon. Question Answer Comments Discussion of Advance Directives occurred with: Patient Does the patient have a Living Will? No Does the patient have Health Care Power of Developer Advocate? No Care Teams Convention Manager Relationship Specialty Start Date End Date Anthony Rico III, MD [address] [place] [address] PCP - General 03/18/1996 documented as of this encounter
--- OUTSIDE RECORDS SUMMARY | 2023-07-24 14:21 | External Medical Summary | Summary of Care ---
Author Name Unknown Organization [facility] Address [address] [place] [address] Phone [phone] Care Team Providers Care Harvest Worker Name Role Phone Jacky THOMAS MD, Anthony Moctezuma Primary Care Provider [phone] Reason for Visit * Reason Onset Date Comments Precert Future 07/15/2023 neupogen Encounter Details Date Type Department Care Team (Late st Contact Info) Description 07/15/2023 Telephone Hematology/Oncology Treatment, [place] [address] [place] [address] [place] Killian MD 200 [place] [address] Precert Future (neupogen) Allergies Active Allergy Reactions Criticality Noted Date [...] bedtime. 180 Tablet 1 06/23/2023 Active Nystatin 954184 UNIT/ML Mouth/Throat Suspension Swish and swallow 5 mL in the morning and 5 mL before bedtime. 1000 mL 1 06/24/2023 Active Losartan Potassium 100 MG Oral Tablet (Cozaar)Indications :HTN, goal below 140/80 Take 1 Tablet by mouth in the morning. 90 Tablet 1 07/13/2023 Active Hospital, Clinic, or Other Facility Administered [...] below 70 01/01/2012 Anticoagulation management encounter 09/05/2010 penitentiary current use of anticoagulant therapy 0 09/05/2010 [...] mRNA, LNP-s, No Pre serve, 2-Dose Series (Groupsite) 06/19/2021,10/24/2020,10/03/2020 H1N1 2009 Influenza, IM 06/14/2009 Hepatitis [...] Split, I IV3, With Preserve, Inj 04/13/2015,04/06/2014,04/24/2013,04/10,05/28/2011,05/10/2010,05/04/2009 ,05/12/2008,05/18/2007,06/11/2006,08/2004,08/13/2004,06/01/2003, 9,05/17/1998,05/31/1997 Seasonal Influenza, Trivalen t, High Dose, [...] Telephone Encounter - Genie Garcia RN - 07/17/2023 10:41 AM EST Referral entered, patient received first injection today. * Telephone Encounter - Genie Garcia RN - 07/15/2023 10:47 AM EST Per precert, insurance preference is zarxio. Joanna: please change beacon plan to ZARXIO and advise if this is available. Thanks! * Telephone Encounter - Genie Garcia RN - 07/15/2023 9:[address] Killian: "Blood workup done on 07/14/2023: - WBC 240, H&H of 8.4/25.8, platelet count of less than 10,000. Persistent the neutropenia. Intermittent the fever present. He is already on acyclovir, Levaquin and Cresemba prophylaxis. Would like to start G-CSF prophylaxis 480 microgram [id number] and see how he does." Porter plan built and routed for signature. Waiting for auth. Precert: please obtain auth- patient will be due for neupogen 07/17/23. Thanks! documented in this encounter Plan of Treatment Upcoming Encounters Date Type Department Care Team (Late st Contact Info) Description 07/21/2023 8:30 AM EST Laboratory Laboratory [facility] [place] [address] [place] [phone] [facility] 200 [facility] [place] [address] 07/21/2023 9:00 AM EST Nurse Only Hematology/Oncology [facility] [place] [address] [place] [address] [place], Nurse Hem Onc [facility] 200 [facility] [place] [address] 07/21/2023 9:15 AM EST Immunization/Injection Hematology/Oncology Treatment, [place] [address] [place] [address] Nurse, Med 4 [address] [place] [address] 07/22/2023 1:15 PM EST Office Visit Otolaryngology [facility] [address] [place] [address] [address] Wendi Cummings MD [address] [place] [address] 07/24/2023 8:30 AM EST Laboratory Laboratory [facility] Dorothy [place] [address] [place] [phone] Park, Lab Scenery [address] [place] [address] 07/24/2023 9:00 AM EST Nurse Only Hematology/Oncology [facility] [address] [place] [address] Park, Nurse Hem Onc Scenery [address] [place] [address] 07/24/2023 9:15 AM EST Immunization/Injection Hematology/Oncology Treatment, [place] [address] [place] [address] Nurse, Med 4 [address] [place], [place] [address] 07/24/2023 9:40 AM EST Office Visit Family Practice [facility] [address] [place], [place] [address] Aiken III, Anthony Moctezuma MD [address] [place], [place] [address] 07/29/2023 8:30 AM EST Laboratory Laboratory [facility] [address] [place] [phone] [place], Lab Scenery [address] [place] [address] 07/29/2023 9:00 AM EST Nurse Only Hematology/Oncology [facility] [place] [address] [place] [address] Park, Nurse Hem Onc Scenery [address] [place] [address] 07/29/2023 9:15 AM EST Immunization/Injection Hematology/Oncology Treatment, [place] [address] [place] [address] Nurse, Med 4 [address] [place] [address] 07/31/2023 8:30 AM EST Laboratory Laboratory [facility] [address] [place] [address] Park, Lab Scenery [address] [place] [address] 07/31/2023 9:00 AM EST Nurse Only Hematology/Oncology [address]ery [place] [address] [place] [address] Park, Nurse Hem Onc Scenery [address] [place] [address] 07/31/2023 9:15 AM EST Immunization/Injection Hematology/Oncology Treatment, [place] [address] [place] [address] Nurse, Med 4 [address] [place] [address] 08/05/2023 8:30 AM EST Laboratory Laboratory Scenery [place] [address] [place] [phone] Park, Lab Scenery [address] [place] [address] 08/05/2023 9:00 AM EST Nurse Only [facility]ology[facility] Dorothy [place] [address] [place] [address] Park, Nurse Hem Onc Scenery [address] [place] [address] 08/07/2023 8:30 AM EST Laboratory Laboratory Scenery [place] [address] [place] [address] Park, Lab Scenery [address] [place] [address] 08/07/2023 9:00 AM EST Nurse Only Hematology/Oncology [address]enery [place] [address] [place] [address] Park, Nurse Hem Onc Scenery [address] [place] [address] 08/11/2023 8:30 AM EST Laboratory Laboratory Scenery [facility] [address] [place] [address] Park, Lab Scenery [address] [place] [address] 08/11/2023 9:00 AM EST Nurse Only Hematology/Oncology Scenery [facility] [address] [place] [address] Park, Nurse Hem Onc Scenery [address] [place] [address] 08/14/2023 8:30 AM EST Laboratory Laboratory Scenery [facility] [address] [place] [address] Park, Lab Scenery [address] [place] [address] 08/14/2023 9:00 AM EST Nurse Only Hematology/Oncology Scenery [facility] [address] [place] [address] Park, Nurse Hem Onc Scenery [address] [place] [address] 08/18/2023 8:30 AM EST Laboratory Laboratory Scenery [facility] [address] [place] [address] Park, Lab Scenery [address] [place] [address] 08/18/2023 9:00 AM EST Nurse Only Hematology/Oncology Scenery [facility] [address] [place] [address] Park, Nurse Hem Onc Scenery [address] [place] [address] 08/21/2023 8:30 AM EST Laboratory Laboratory Scenery [facility] [address] [place] [address] Park, Lab Scenery [address] [place] [address] 08/21/2023 9:00 AM EST Nurse Only Hematology[facility] [place] [address] [place], [place] [address] Park, Nurse Hem Onc Scenery [address] [place] [address] 08/25/2023 8:30 AM EST Laboratory Laboratory [facility] [place] [address] [place], [place] [address] Park, Lab Scenery [address] [place], [place] [address] 08/25/2023 9:00 AM EST Nurse Only Hematology/Oncology [facility] [place] [address] [place], [place] [address] Park, Nurse Hem Onc Scenery [address] [place] [address] 08/29/2023 9:15 AM EST Office Visit Hematology/Oncology [facility] [place] [address] [place], [place] [address] [place] Killian MD [address] [place], [place] [address] 10/03/2023 10:30 AM EST Telemedicine Urology Zhou Yap [address] [place] [address] Kd Dickens MD [address] [place] [address] 7, Telemed [facility] Urology Ex Rm [address] [place] [address] 03/18/2024 11:00 AM EDT Office Visit Dermatology [facility] [address] [place] [address] Erica Rashid MD [address] [place] [address], [place] [address] Health Maintenance Due Date Last Done Comments Diabetic Eye Exam 09/14/2019 09/14/2018, , 07/07/2017, Additional history exists DTaP,Tdap,and Td Vaccines (2 - Td or Tdap) 04/09/2021 04/09/2011 COVID-19 Vaccine (4 - 2022-24 season) 2023 06/19/2021, 10/24/2020, 10/03/2020 [...] this encounter Medical Devices Implanted Type Area Data Warehouse Architect Device Identifier Shelf Expiration Date Model / Serial / Lot Port Implant W/8f Poly Cath - [id number] Implanted:Qty : 1 on 11/23/2021 by Tae Porras, DO at OR [facility] Right: Chest CR BARD : PERIPHERAL VASCULAR [id number] 09/03/2022 [id number] / / [id number] Port Implant W/8f Poly Cath - [id number] Implanted:Qty : 1 on 12/26/2022 by Fabián Del Cid, DO at OR [facility] Right: Chest CR BARD : PERIPHERAL VASCULAR [id number] 04/03/2024 [id number] / / [id number] documented as of this encounter Advance Directives Documents on File Type Date Recorded Patient Acetylene Burner Expl anation Power of Email Developer 06/06/2022 POWER OF A TTORNEY Latest Code [...] the patient have Health Care Power of Email Developer? No Full Code 03/12/2022 5:18 PM 03/15/2022 7:16 PM This o rder reflects the patients wishes and were consensually agreed upon. Question Answer Comments Discussion of Advance Directives occurred with: Patient Does the patient have a Living Will? No Does the patient have Health Care Power of Email Developer? No Full Code 12/04/2021 5:18 PM 01/22/2022 8:17 PM This o rder reflects the patients wishes and were consensually agreed upon. Question Answer Comments Discussion of Advance Directives occurred with: Patient Does the patient have a Living Will? No Does the patient have Health Care Power of Email Developer? No Care Teams Harvest Worker Relationship Specialty Start Date End Date Anthony Rico III, MD [address] [place] [address] PCP - General 03/18/1996 documented as of this encounter
--- OUTSIDE RECORDS SUMMARY | 2023-07-24 14:21 | External Medical Summary | Summary of Care ---
Author Name Unknown Organization [facility] Address [address] [place] [address] Phone [phone] Care Team Providers Care Food Vendor Name Role Phone Jacky THOMAS MD, Anthony Moctezuma Primary Care Provider [phone] Encounter Details Date Type Department Care Team (Late st Contact Info) Description 07/14/2023 Result Scan Unspecified Department [place] [facility] [address] <No scans attached> Allergies Active Allergy Reactions Criticality Noted Date Comments Bee Venom Low 10/07/2018 Other reaction(s): SWELLING Nitrofurantoin Monohyd Macro Other (Please comment) 02/14/2014 "Flu-like symptoms, Headache, Fever, Red dots on skin-on legs mainly" Happened during end of 10 day course. documented as of this encounter (statuses as of 07/15/2023) Medications Medication Sig Dispensed Refills Start Date [...] bedtime. 180 Tablet 1 06/23/2023 Active Nystatin 808255 UNIT/ML Mouth/Throat Suspension Swish and swallow 5 [...] as of this encounter (statuses as of 07/15/2023) Active Problems Problem Noted Date Diagnosed Date [...] below 70 01/01/2012 Anticoagulation management encounter 09/05/2010 residential current use of anticoagulant therapy 0 09/05/2010 [...] as of this encounter (statuses as of 07/15/2023) Resolved Problems Problem Noted Date Diagnosed Date [...] as of this encounter (statuses as of 07/15/2023) Immunizations Name Administration Dates Next Due COVID-19 mRNA, LNP-s, No Pre serve, 2-Dose Series (AnyMeeting) 06/19/2021,10/24/2020,10/03/2020 H1N1 2009 Influenza, IM 06/14/2009 Hepatitis [...] Team (Late st Contact Info) Description 07/15/2023 11:00 AM EST Office Visit Family [facility] [address] [place] [address] Maria Teresa Nelson, [address] [place], [place] [address] 07/17/2023 8:30 AM EST Laboratory Laboratory [facility] [address] [place] [phone] [place], Lab [facility] [address] [facility] [place] [address] 07/17/2023 9:00 AM EST Nurse Only Hematology/Oncology [facility] [address] [place], [place] [address] [place], Nurse Hem Onc [facility] [address] [place], [place] [address] 07/21/2023 8:30 AM EST Laboratory Laboratory [facility] [address] [place], [place] [phone] [place], Lab Scenery [address] [place], [place] [address] 07/21/2023 9:00 AM EST Nurse Only [facility] [address] [place], [place] [address] [place], Nurse Hem Onc Scenery [address] [place], [place] [address] 07/22/2023 1:15 PM EST Office Visit [facility] [place] [address] Wendi Cummings MD [address] [place] [address] 07/24/2023 8:30 AM EST Laboratory Laboratory [facility] [place] [address] [place] [phone] [place], Lab Scenery [address] [place], [place] [address] 07/24/2023 9:00 AM EST Nurse Only Hematology[facility] [place] [address] [place], [place] [address] [place], Nurse Hem Onc Scenery [address] [place], [place] [address] 07/24/2023 9:40 AM EST Office Visit [facility] Practice [facility] [place] [address] [place], [place] [address] Jacky IIIAnthony MD [address] [place], [place] [address] 07/29/2023 8:30 AM EST Laboratory Laboratory [facility] [address] [place], [place] [phone] [place], Lab Scenery [address] [facility] [place], [place] [address] 07/29/2023 9:00 AM EST Nurse Only [facility]ematology[facility] [address] [place] [address] [place], Nurse Hem Onc Scenery [address] [place] [address] 07/31/2023 8:30 AM EST Laboratory Laboratory Scenery [facility] [address] [place] [address] [place], Lab Scenery [address] [place] [address] 07/31/2023 9:00 AM EST Nurse Only Hematology/Oncology Scenery [facility] [address] [place] [address] [place], Nurse Hem Onc Scenery [address] [place] [address] 08/05/2023 8:30 AM EST Laboratory Laboratory Scenery [facility] [address] [place] [phone] [place], Lab Scenery [address] [place] [address] 08/05/2023 9:00 AM EST Nurse Only Hematology/Oncology Scenery [facility] [address] [place] [address] [place], Nurse Hem Onc Scenery [address] [place] [address] 08/07/2023 8:30 AM EST Laboratory Laboratory Scenery [facility] [address] [place] [phone] [place], Lab Scenery [address] [place] [address] 08/07/2023 9:00 AM EST Nurse Only Hematology/Oncology Scenery [facility] [address] [place] [address] [place], Nurse Hem Onc Scenery [address] [place] [address] 08/11/2023 8:30 AM EST Laboratory Laboratory Scenery [facility] [address] [place] [address] [place], Lab Scenery [address] [place] [address] 08/11/2023 9:00 AM EST Nurse Only Hematology/Oncology Scenery [facility] [address] [place] [address] [place], Nurse Hem Onc Scenery [address] [place] [address] 08/14/2023 8:30 AM EST Laboratory Laboratory Scenery [facility] [address] [place] [address] [place], Lab Scenery [address] [place] [address] 08/14/2023 9:00 AM EST Nurse Only Hematology/Oncology Scenery [facility] [address] [place] [address] [place], Nurse Hem Onc Scenery [address] [place] [address] 08/18/2023 8:30 AM EST Laboratory Laboratory Scenery [facility] [address] [place] [address] [place], Lab Scenery [address] [place] [address] 08/18/2023 9:00 AM EST Nurse Only Hematology/Oncology Scenery [facility] [address] [place] [address] [place], Nurse Hem Onc Scenery [address] [place] [address] 08/21/2023 8:30 AM EST Laboratory Laboratory Scenery [facility] [address] [place] [address] [place], Lab Scenery [address] [place] [address] 08/21/2023 9:00 AM EST Nurse Only Hematology/Oncology [facility] [address] [place] [address] [place], Nurse Hem Onc Scenery [address] [place], [place] [address] 08/25/2023 8:30 AM EST Laboratory Laboratory [facility] [place] [address] [place], [place] [phone] [place], Lab Scenery [address] [facility] [place], [place] [address] 08/25/2023 9:00 AM EST Nurse Only Hematology/Oncology [facility] [place] [address] [place], [place] [address] [place], Nurse Hem Onc Scenery [address] [place], [place] [address] 08/29/2023 9:15 AM EST Office Visit Hematology/Oncology [facility] [address] [place], [place] [address] Berlin Killian MD [address] [place], [place] [address] 10/03/2023 10:30 AM EST Telemedicine Urology [facility] [address] [place] [address] Kd Dickens MD [address] [place] [address] 7, Telemed [facility] Urology Ex Rm [address] [place] [address] 03/18/2024 11:00 AM EDT Office Visit Dermatology [facility] [address] [place], [place] [address] Erica Rashid MD [address] [place] [address] Health Maintenance Due Date Last Done Comments [...] this encounter Medical Devices Implanted Type Area Superintendent Laundry Device Identifier Shelf Expiration Date Model / Serial / Lot Port Implant W/8f Poly Cath - [id number] Implanted:Qty : 1 on 11/23/2021 by Tae Porras, DO at OR [facility] Right: Chest CR BARD : PERIPHERAL VASCULAR [id number] 09/03/2022 [id number] / / [id number] Port Implant W/8f Poly Cath - [id number] Implanted:Qty : 1 on 12/26/2022 by Fabián Del Cid, DO at OR [facility] Right: Chest CR BARD : PERIPHERAL VASCULAR [id number] 04/03/2024 [id number] / / [id number] documented as of this encounter Procedures Procedure Name Priority Date/Time Associated Diagnosis Comments OUTSIDE LAB RESULTS 07/14/2023 documented in this encounter Results * OUTSIDE LAB RESULTS (07/14/2023) 07/14/2023 Berlin Killian MD LABORATORY documented in this encounter Advance Directives Documents on File Type Date Recorded 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 No Full Code 03/12/2022 5:18 PM 03/15/2022 7:16 PM This o rder reflects the patients wishes and were consensually agreed upon. Question Answer Comments Discussion of Advance Directives occurred with: Patient Does the patient have a Living Will? No Does the patient have Health Care Power of Pet Groomer? No Full Code 12/04/2021 5:18 PM 01/22/2022 8:17 PM This o rder reflects the patients wishes and were consensually agreed upon. Question Answer Comments Discussion of Advance Directives occurred with: Patient Does the patient have a Living Will? No Does the patient have Health Care Power of Pet Groomer? No Care Teams Food Vendor Relationship Specialty Start Date End Date Anthony Rico III, MD 200 [facility] [place] [address] PCP - General 03/18/1996 documented as of this encounter
--- OUTSIDE RECORDS SUMMARY | 2023-07-24 14:21 | External Medical Summary | Summary of Care ---
Author Name Unknown Organization [facility] Address [address] [place] [address] Phone [phone] Care Team Providers Care Dinkey Locomotive Operator Name Role Phone Jacky THOMAS MD, Anthony Moctezuma Primary Care Provider [phone] Reason for Visit * Reason Onset Date Comments Precert Future 07/15/2023 neupogen Encounter Details Date Type Department Care Team (Late st Contact Info) Description 07/15/2023 Telephone Hematology/Oncology Treatment, [place] [address] [place] [address] [place] Killian MD [address] [place] [address] Precert Future (neupogen) Allergies Active Allergy Reactions [...] bedtime. 180 Tablet 1 06/23/2023 Active Nystatin 498833 UNIT/ML Mouth/Throat Suspension Swish and swallow 5 [...] below 70 01/01/2012 Anticoagulation management encounter 09/05/2010 jail current use of anticoagulant therapy 0 09/05/2010 [...] mRNA, LNP-s, No Pre serve, 2-Dose Series (SuperSonic Imagine) 06/19/2021,10/24/2020,10/03/2020 H1N1 2009 Influenza, IM 06/14/2009 Hepatitis [...] like to start G-CSF prophylaxis 480 microgram evoan-f-wflf and see how he does." [place] plan built and routed for signature. Waiting for auth. Precert: please obtain auth- patient will be due for neupogen 07/17/23. Thanks! documented in this encounter Plan of Treatment Upcoming Encounters Date Type Department Care Team (Late st Contact Info) Description 07/15/2023 11:00 AM EST Office Visit Family Practice [facility] [address] [place] [address] Maria Teresa Nelson, [address] [place] [address] [address] 07/17/2023 8:30 AM EST Laboratory Laboratory Scenery [facility] [address] [place], [place] [address] [place], Lab Scenery [address] [place] [address] 07/17/2023 9:00 AM EST Nurse Only Hematology/Oncology Scenery [facility] [address] [place] [address] [place], Nurse Hem Onc Scenery [address] [place] [address] 07/21/2023 8:30 AM EST Laboratory Laboratory Scenery [facility] [address] [place], [place] [address] [place], Lab Scenery [address] [place], [place] [address] 07/21/2023 9:00 AM EST Nurse Only Hematology/Oncology Scenery [facility] [address] [place], [place] [address] [place], Nurse Hem Onc Scenery [address] [place], [place] [address] 07/22/2023 1:15 PM EST Office Visit Otolaryngology [facility] [address] [facility] [place] [address] Wendi Cummings MD 132 [facility] [place] [address] 07/24/2023 8:30 AM EST Laboratory Laboratory [facility] [address] [place], [place] [phone] [place], Lab Scenery [address] [place], [place] [address] 07/24/2023 9:00 AM EST Nurse Only Hematology/Oncology [facility] [address] [place] [address] [place], Nurse Hem Onc Scenery [address] [place] [address] 07/24/2023 9:40 AM EST Office Visit [facility] [address] [place] [address] Anthony Rico III, MD [address] [place] [address] 07/29/2023 8:30 AM EST Laboratory Laboratory [facility] [address] [place] [address] [place], Lab Scenery [address] [place] [address] 07/29/2023 9:00 AM EST Nurse Only Hematology/Oncology [facility] [address] [place] [address] [place], Nurse Hem Onc Scenery [address] [place] [address] 07/31/2023 8:30 AM EST Laboratory Laboratory [facility] [address] [place] [address] [place], Lab Scenery [address] [place] [address] 07/31/2023 9:00 AM EST Nurse Only Hematology/Oncology [facility] [address] [place] [address] [place], Nurse Hem Onc Scenery [address] [place] [address] 08/05/2023 8:30 AM EST Laboratory Laboratory [facility] [address] [place] [phone] Park, Lab Scenery [address] [place] [address] 08/05/2023 9:00 AM EST Nurse Only Hematology/Oncology Scenery [facility] [address] [place] [address] Park, Nurse Hem Onc Scenery [address] [place] [address] 08/07/2023 8:30 AM EST Laboratory Laboratory Scenery [facility] [address] [place] [address] [place], Lab Scenery [address] [place] [address] 08/07/2023 9:00 AM EST Nurse Only Hematology/Oncology Scenery [facility] [address] [place] [address] Park, Nurse Hem Onc Scenery [address] [place] [address] 08/11/2023 8:30 AM EST Laboratory Laboratory Scenery [facility] [address] [place] [address] [place], Lab Scenery [address] [place] [address] 08/11/2023 9:00 AM EST Nurse Only Hematology/Oncology Scenery [place] [address] [place] [address] Park, Nurse Hem Onc Scenery [address] [place] [address] 08/14/2023 8:30 AM EST Laboratory Laboratory Scenery [facility] [address] [place] [address] [place], Lab Scenery [address] [place] [address] 08/14/2023 9:00 AM EST Nurse Only Hematology/Oncology Scenery [facility] [address] [place] [address] Park, Nurse Hem Onc Scenery [address] [place] [address] 08/18/2023 8:30 AM EST Laboratory Laboratory Scenery [facility] [address] [place] [address] Park, Lab Scenery [address] [place] [address] 08/18/2023 9:00 AM EST Nurse Only Hematology/Oncology Scenery [facility] [address] [place] [address] Park, Nurse Hem Onc Scenery [address] [place] [address] 08/21/2023 8:30 AM EST Laboratory Laboratory [facility] [address] [place] [address] Park, Lab Scenery [address] [place] [address] 08/21/2023 9:00 AM EST Nurse Only Hematology/Oncology Scenery [place] [address] [place] [address] Park, Nurse Hem Onc Scenery [address] [place] [address] 08/25/2023 8:30 AM EST Laboratory Laboratory Scenery [place] [address] [place] [address] [place], Lab Scenery [address] [place] [address] 08/25/2023 9:00 AM EST Nurse Only Hematology/Oncology Scenery [place] [address] [place] [address] Park, Nurse Hem Onc Scenery [address] [place] [address] 08/29/2023 9:15 AM EST Office Visit Hematology/Oncology Scenery [facility] [address] [place] [address] Berlin Killian MD 200 [facility] [place], [place] [address] 10/03/2023 10:30 AM EST Telemedicine Urology [place] [address] [place] [address] Kd Dickens MD [address] [place] [address] 7, Telemed [facility] Urology Ex Rm [address] [place] [address] 03/18/2024 11:00 AM EDT Office Visit Dermatology [facility] [place] 200 [facility] [place] [address] Erica Rashid MD 200 [facility] [place], [place] [address] Health Maintenance Due Date Last Done Comments [...] this encounter Medical Devices Implanted Type Area Dinkey Locomotive Operator Device Identifier Shelf Expiration Date Model / Serial / Lot Port Implant W/8f Poly Cath - [id number] Implanted:Qty : 1 on 11/23/2021 by Tae Porras DO at OR [facility] Right: Chest CR BARD : PERIPHERAL VASCULAR [id number] 09/03/2022 [id number] / / [id number] Port Implant W/8f Poly Cath - [id number] Implanted:Qty : 1 on 12/26/2022 by Fabián Del Cid, at OR [facility] Right: Chest CR BARD : PERIPHERAL VASCULAR [id number] 04/03/2024 [id number] / / [id number] documented as of this encounter Advance Directives Documents on File Type Date Recorded 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 No Full Code 03/12/2022 5:18 PM 03/15/2022 7:16 PM This o rder reflects the patients wishes and were consensually agreed upon. Question Answer Comments Discussion of Advance Directives occurred with: Patient Does the patient have a Living Will? No Does the patient have Health Care Power of Program Assistant? No Full Code 12/04/2021 5:18 PM 01/22/2022 8:17 PM This o rder reflects the patients wishes and were consensually agreed upon. Question Answer Comments Discussion of Advance Directives occurred with: Patient Does the patient have a Living Will? No Does the patient have Health Care Power of Program Assistant? No Care Teams Dinkey Locomotive Operator Relationship Specialty Start Date End Date Anthony Rico III, MD [address] [place] [address] PCP - General 03/18/1996 documented as of this encounter
--- OUTSIDE RECORDS SUMMARY | 2023-07-24 14:21 | External Medical Summary ---
Author Name Unknown Address Unknown Organization K09[facility] [address] Laboratory Report Ordering Provider Test Date Status WINTER,MANCERA 07/17/2023 08:37:29 Final Observation Date Value Abnormality Reference (Units ) Status Nucleated erythrocytes/100 leukocytes [Ratio] in Blood by Automated count 07/17/2023 08:37:29 Final Performing Location [facility] [address]
--- OUTSIDE RECORDS SUMMARY | 2023-07-24 14:21 | External Medical Summary | Summary of Care ---
Author Name Unknown Organization [facility] [address] [facility] [facility] [address] Phone [phone] Care Team Providers Care Auto Detailer Name Role Phone Jacky THOMAS MD, Anthony Moctezuma Primary Care Provider [phone] Reason for Visit * Reason Comments Outpatient Testing Encounter Details Date Type Department Care Team (Late st Contact Info) Description 07/17/2023 8:30 AM EST Laboratory Laboratory [facility] [place] [address] [place] [phone] [facility] Lab [facility] [address] [place] [address] AML (acute myeloid leukemia) ([facility]) Allergies Active Allergy Reactions Criticality Noted Date [...] bedtime. 180 Tablet 1 06/23/2023 Active Nystatin 894435 UNIT/ML Mouth/Throat Suspension Swish and swallow 5 [...] a day. 180 Capsule 0 07/15/2023 Active Hospital, Clinic, or Other Facility Administered [...] below 70 01/01/2012 Anticoagulation management encounter 09/05/2010 buttermaker current use of anticoagulant therapy 0 09/05/2010 [...] mRNA, LNP-s, No Pre serve, 2-Dose Series ([employer]) 06/19/2021,10/24/2020,10/03/2020 H1N1 2009 Influenza, IM 06/14/2009 Hepatitis [...] 07/17/2023 9:00 AM EST Nurse Only Hematology/Oncology [facility] [place] 200 [facility] [place] [address] Park, Nurse Hem Onc [facility] [address] [place] [address] Arrived 07/17/2023 9:30 AM EST Immunization/Injection Hematology/Oncology Treatment, [place] [address] [place] [address] Nurse, Med 4 [address] [place] [address] Arrived 07/21/2023 8:30 AM EST Laboratory Laboratory [facility] [place] [address] [place] [address] Dorothy, Lab [facility] [address] [facility] [place] [address] 07/21/2023 9:00 AM EST Nurse Only Hematology/Oncology [facility] [place] [address] [place], [place] [address] Park, Nurse Hem Onc Scenery [address] [place] [address] 07/22/2023 1:15 PM EST Office Visit [facility] [address] [facility] [place] [address] Wendi Cummings MD [address] [place] [address] 07/24/2023 8:30 AM EST Laboratory Laboratory [facility] [place] [address] [place] [phone] Dorothy, Lab Scenery [address] [place] [address] 07/24/2023 9:00 AM EST Nurse Only Hematology/Oncology [facility] [place] [address] [place] [address] Park, Nurse Hem Onc Scenery [address] [place] [address] 07/24/2023 9:40 AM EST Office Visit [facility] [place] [address] [place], [place] [address] Anthony Rico III, MD [address] [place], [place] [address] 07/29/2023 8:30 AM EST Laboratory Laboratory [facility] [place] [address] [place], [place] [phone] Park, Lab Scenery [address] [place], [place] [address] 07/29/2023 9:00 AM EST Nurse Only Hematology/Oncology [facility] [address] [place] [address] Park, Nurse Hem Onc Scenery [address] [place] [address] 07/31/2023 8:30 AM EST Laboratory Laboratory Scenery [facility] [address] [place] [address] Park, Lab Scenery [address] [place] [address] 07/31/2023 9:00 AM EST Nurse Only Hematology/Oncology Scenery [facility] [address] [place] [address] Park, Nurse Hem Onc Scenery [address] [place] [address] 08/05/2023 8:30 AM EST Laboratory Laboratory Scenery [facility] [address] [place] [phone] Park, Lab Scenery [address] [place] [address] 08/05/2023 9:00 AM EST Nurse Only Hematology/Oncology Scenery [facility] [address] [place] [address] Park, Nurse Hem Onc Scenery [address] [place] [address] 08/07/2023 8:30 AM EST Laboratory Laboratory Scenery [facility] [address] [place] [address] Park, Lab Scenery [address] [place] [address] 08/07/2023 9:00 AM EST Nurse Only Hematology/Oncology Scenery [facility] [address] [place] [address] Park, Nurse Hem Onc Scenery [address] [place] [address] 08/11/2023 8:30 AM EST Laboratory Laboratory Scenery [facility] [address] [place] [address] Park, Lab Scenery [address] [place] [address] 08/11/2023 9:00 AM EST Nurse Only Hematology/Oncology Scenery [facility] [address] [place] [address] Park, Nurse Hem Onc Scenery [address] [place] [address] 08/14/2023 8:30 AM EST Laboratory Laboratory Scenery [facility] [address] [place] [address] Park, Lab Scenery [address] [place] [address] 08/14/2023 9:00 AM EST Nurse Only Hematology/Oncology Scenery [facility] [address] [place] [address] Park, Nurse Hem Onc Scenery [address] [place] [address] 08/18/2023 8:30 AM EST Laboratory Laboratory Scenery [facility] [address] [place] [address] Park, Lab Scenery [address] [place] [address] 08/18/2023 9:00 AM EST Nurse Only Hematology/Oncology Scenery [facility] [address] [place] [address] Park, Nurse Hem Onc Scenery [address] [place] [address] 08/21/2023 8:30 AM EST Laboratory Laboratory Scenery [facility] [address] [place] [address] Park, Lab Scenery [address] [place] [address] 08/21/2023 9:00 AM EST Nurse Only Hematology/Oncology [facility] [address] [place], [place] [address] Park, Nurse Hem Onc Scenery [address] [place], [place] [address] 08/25/2023 8:30 AM EST Laboratory Laboratory [facility] [place] [address] [place], [place] [address] Park, Lab Scenery [address] [place], [place] [address] 08/25/2023 9:00 AM EST Nurse Only Hematology/Oncology [facility] [place] [address] [place], [place] [address] Park, Nurse Hem Onc Scenery [address] [place] [address] 08/29/2023 9:15 AM EST Office Visit Hematology/Oncology [facility] [address] [place], [place] [address] [place] Killian MD [address] [place] [address] 10/03/2023 10:30 AM EST Telemedicine Urology Zhou Yap [address] [place] [address] Kd Dickens MD [address] [place] [address] 7, Telemed [facility] Urology Ex Rm [address] [place] [address] 03/18/2024 11:00 AM EDT Office Visit Dermatology [facility] [address] [place] [address] Erica Rashid MD [address] [place] [address] Pending Results Name Type Priority Associated Diagnoses Date /Time CBC WITH WBC DIFFERENTIAL Lab STAT AML (acute myeloid leukemia) ([facility]) 07/17/2023 8:37 AM EST CBC Lab STAT AML (acute myeloid leukemia) ([facility]) 07/17/2023 8:37 AM EST DIFFERENTIAL, AUTOMATED Lab STAT AML (acute myeloid leukemia) ([facility]) 07/17/2023 8:37 AM EST DIFFERENTIAL, TECHNOLOGIST REVIEW Lab Routine AML (acute myeloid leukemia) ([facility]) 07/17/2023 8:37 AM EST Health Maintenance Due Date Last [...] this encounter Medical Devices Implanted Type Area Customer Liaison Device Identifier Shelf Expiration Date Model / Serial / Lot Port Implant W/8f Poly Cath - [id number] Implanted:Qty : 1 on 11/23/2021 by Tae Porras DO at [facility] Right: Chest CR BARD : PERIPHERAL VASCULAR [id number] 09/03/2022 [id number] / / [id number] Port Implant W/8f Poly Cath - [id number] Implanted:Qty : 1 on 12/26/2022 by Fabián Del Cid DO at OR [facility] Right: Chest CR BARD : PERIPHERAL VASCULAR [id number] 04/03/2024 [id number] / / [id number] documented as of this encounter Visit Diagnoses Diagnosis AML (acute myeloid leukemia) (HCC) Acute myeloid leukemia, without mention of having achieved remission documented in this encounter Advance Directives Documents on File Type Date Recorded Patient Publishing Agent Expl anation Power of District Sales Representative 06/06/2022 POWER OF A TTORNEY Latest Code [...] the patient have Health Care Power of District Sales Representative? No Full Code 03/12/2022 5:18 PM 03/15/2022 7:16 PM This o rder reflects the patients wishes and were consensually agreed upon. Question Answer Comments Discussion of Advance Directives occurred with: Patient Does the patient have a Living Will? No Does the patient have Health Care Power of District Sales Representative? No Full Code 12/04/2021 5:18 PM 01/22/2022 8:17 PM This o rder reflects the patients wishes and were consensually agreed upon. Question Answer Comments Discussion of Advance Directives occurred with: Patient Does the patient have a Living Will? No Does the patient have Health Care Power of District Sales Representative? No Care Teams Auto Detailer Relationship Specialty Start Date End Date Anthony Rico III, MD [address] [place] [address] PCP - General 03/18/1996 documented as of this encounter
--- OUTSIDE RECORDS SUMMARY | 2023-07-24 14:21 | External Medical Summary ---
Author Name Unknown Address Unknown Organization K09:[facility] [place] [address] Laboratory Report Ordering Provider Test Date Status FIORDALIZA MAX 07/17/2023 08:37:29 Final Observation Date Value Abnormality Reference (Units ) Status WBC, Total 07/17/2023 08:37:29 0.28 Below lower panic limits 4.00-10.80 (K/uL) Final RBC 07/17/2023 08:37:29 2.61 4.50-5.25 (M/uL) Final Hemoglobin 07/17/2023 08:37:29 7.6 Below low normal 14.0-16.8 (g/dL) Final HCT 07/17/2023 08:37:29 23.3 Below low normal 40.0-48.4 (%) Final MCV 07/17/2023 08:37:29 89.3 82.0-99.5 (fL) Final MCH 07/17/2023 08:37:29 29.1 27.0-34.0 (pg) Final MCHC 07/17/2023 08:37:29 32.6 32.0-36.0 (g/dL) Final RDW 07/17/2023 08:37:29 13.1 11.5-15.5 (%) Final Platelets 07/17/2023 08:37:29 <10 Below lower panic limits 140-400 (K/uL) Final MPV 07/17/2023 08:37:29 8.8 6.6-11.1 (fL) Final Performing Location [facility] [address]
--- OUTSIDE RECORDS SUMMARY | 2023-07-24 14:21 | External Medical Summary | Summary of Care ---
Author Name Unknown Organization [facility] Address [address] [place] [address] Phone [phone] Care Team Providers Care Skip Hoist Operator Name Role Phone Jacky THOMAS MD, Anthony Moctezuma Primary Care Provider [phone] Reason for Visit * Reason Comments Medication Administration Zarxio * Episode Based Medications (Routine) - Authorized Specialty Diagnoses / Procedures Referred By Contac t Referred To Contact Diagnoses Chemotherapy-induced neutropenia Acute myeloid leukemia in remission (HCC) Procedures LA INJECTION, [place] Steinberg MD [address] [place] [address] Anc Hem/Onc [facility] [address] [place] [address] Referral ID Status Reason Start Date Expiration Date V isits Requested Visits Authorized [id number] Authorized 07/15/2023 08/03/2024 [id number] Encounter Details Date Type Department Care Team (Late st Contact Info) Description 07/17/2023 9:30 AM EST Immunization/I njection Hematology/Oncology Treatment, [place] [address] [place] [address] Nurse, Med 200 [place] [address] Chemotherapy-induced neutropenia *; Acute myeloid leukemia in [...] bedtime. 180 Tablet 1 06/23/2023 Active Nystatin 474911 UNIT/ML Mouth/Throat Suspension Swish and swallow 5 [...] 4:50 PM EDT Sexual Orientation Straight 02/01/2022 4 :50 PM EDT Job Start Date Occupation Industry [...] Nursing Notes * Margoth Diaz LPN - 07/17/2023 11:04 AM EST 0935: Pt arrived for Zarxio injection. Administered in PEDRO. Pt tolerated well. To return in 4 days.Discharged in stable condition. documented in this encounter Plan of Treatment Upcoming Encounters Date Type Department Care Team (Late st Contact Info) Description 07/21/2023 8:30 AM EST Laboratory Laboratory [facility] [place] [address] [place] [phone] Park, Lab Scenery [address] [facility] [place] [address] 07/21/2023 9:00 AM EST Nurse Only Hematology/Oncology [facility] [place] [address] [place] [address] Dorothy, Nurse Hem Onc Scenery [address] [place] [address] 07/21/2023 9:15 AM EST Immunization/Injection Hematology/Oncology Treatment, [place] [address] [place], [place] [address] Nurse, Med 4 [address] [place] [address] 07/22/2023 1:15 PM EST Office Visit Otolaryngology [facility] 132 [facility] [place] [address] Wendi Cummings MD 132 [facility] [place] [address] 07/24/2023 8:30 AM EST Laboratory Laboratory [facility] Dorothy [place] [address] [place] [address] Dorothy, Lab Scenery [address] [facility] [place] [address] 07/24/2023 9:00 AM EST Nurse Only [facility] [place] [address] [place] [address] Park, Nurse Hem Onc Scenery [address] [place] [address] 07/24/2023 9:15 AM EST Immunization/Injection Hematology/Oncology Treatment, [place] 200 [place] [address] Nurse, Med [address] [place] [address] 07/24/2023 9:40 AM EST Office Visit Family Practice [facility] [address] [place], [place] [address] Jacky III, Anthony Moctezuma MD [address] [place] [address] 07/29/2023 8:30 AM EST Laboratory Laboratory [facility] [address] [place] [address] Dozier, Lab Scenery [address] [place] [address] 07/29/2023 9:00 AM EST Nurse Only Hematology/Oncology [facility] [address] [place] [address] Park, Nurse Hem Onc Scenery [address] [place] [address] 07/29/2023 9:15 AM EST Immunization/Injection Hematology/Oncology Treatment, [place] [address] [facility] [place] [address] Nurse, Med 4 [address] [place] [address] 07/31/2023 8:30 AM EST Laboratory Laboratory [facility] [address] [place] [address] Park, Lab Scenery [address] [place] [address] 07/31/2023 9:00 AM EST Nurse Only Hematology/Oncology [facility] [address] [place] [address] Park, Nurse Hem Onc Scenery [address] [place] [address] 07/31/2023 9:15 AM EST Immunization/Injection Hematology/Oncology Treatment, [place] [address] [place] [address] Nurse, Med [address] [place] [address] 08/05/2023 8:30 AM EST Laboratory Laboratory [facility] [place] [address] [place] [address] Park, Lab Scenery [address] [place] [address] 08/05/2023 9:00 AM EST Nurse Only Hematology/Oncology Scen[facility] [address] [place] [address] Park, Nurse Hem Onc Scenery [address] [place] [address] 08/07/2023 8:30 AM EST Laboratory Laboratory Scenery [facility] [address] [place] [address] Park, Lab Scenery [address] [place] [address] 08/07/2023 9:00 AM EST Nurse Only Hematology/Oncology [facility] [place] [address] [place] [address] Park, Nurse Hem Onc Scenery [address] [place] [address] 08/11/2023 8:30 AM EST Laboratory Laboratory Scenery [facility] [address] [place] [address] Park, Lab Scenery [address] [place] [address] 08/11/2023 9:00 AM EST Nurse Only Hematology/Oncology [facility] [place] [address] [place] [address] Park, Nurse Hem Onc Scenery [address] [place] [address] 08/14/2023 8:30 AM EST Laboratory Laboratory Scenery [facility] [address] [place] [address] Park, Lab Scenery [address] [place] [address] 08/14/2023 9:00 AM EST Nurse Only Hematology/Oncology Scenery [facility] [address] [place] [address] Park, Nurse Hem Onc Scenery [address] [place] [address] 08/18/2023 8:30 AM EST Laboratory Laboratory Scenery [facility] [address] [place] [address] Park, Lab Scenery [address] [place] [address] 08/18/2023 9:00 AM EST Nurse Only Hematology/Oncology Scenery [facility] [address] [place] [address] Park, Nurse Hem Onc Scenery [address] [place] [address] 08/21/2023 8:30 AM EST Laboratory Laboratory Scenery [facility] [address] [place] [address] Park, Lab Scenery [address] [place] [address] 08/21/2023 9:00 AM EST Nurse Only Hematology/Oncology Scenery [facility] [address] [place] [address] Park, Nurse Hem Onc Scenery [address] [place] [address] 08/25/2023 8:30 AM EST Laboratory Laboratory Scenery [facility] [address] [place], [place] [address] Dorothy, Lab Scenery [address] [place], [place] [address] 08/25/2023 9:00 AM EST Nurse Only Hematology/Oncology [facility] [place] [address] [place], [place] [address] Park, Nurse Hem Onc [facility] [address] [place], [place] [address] 08/29/2023 9:15 AM EST Office Visit Hematology/Oncology [facility] [place] [address] [place], [place] [address] [place] Killian MD [address] [place], [place] [address] 10/03/2023 10:30 AM EST Telemedicine Urology Zhou Yap [address] [place] [address] Kd Dickens MD [address] [place] [address] 7, Telemed [facility] Urology Ex Rm 132 [facility] [place] [address] 03/18/2024 11:00 AM EDT Office Visit Dermatology [facility] [place] [address] [place], [place] [address] Erica Rashid MD [address] [place], [place] [address] Health Maintenance Due Date Last Done Comments Diabetic Eye Exam 09/14/2019 09/14/2018, , 07/07/2017, Additional history exists DTaP,Tdap,and Td Vaccines (2 - Td or Tdap) 04/09/2021 04/09/2011 COVID-19 Vaccine (2022-24 season) 2023 06/19/2021, 10/24/2020, 10/03/2020 Influenza Vaccine [...] this encounter Medical Devices Implanted Type Area Gas Pit Worker Device Identifier Shelf Expiration Date Model / Serial / Lot Port Implant W/8f Poly Cath - [id number] Implanted:Qty : 1 on 11/23/2021 by Tae Porras, DO at OR [facility] Right: Chest CR BARD : PERIPHERAL VASCULAR [id number] 09/03/2022 [id number] / / [id number] Port Implant W/8f Poly Cath - [id number] Implanted:Qty : 1 on 12/26/2022 by Fabián Del Cid DO at OR [facility] Right: Chest CR BARD : PERIPHERAL VASCULAR [id number] 04/03/2024 [id number] / / [id number] documented as of this encounter Visit Diagnoses Diagnosis Chemotherapy-induced neutropenia- Primary Drug induced neutropenia Acute myeloid leukemia in remission (HCC) Acute myeloid leukemia in remission documented in this encounter Administered Medications Inactive Administered Medications - up to 3 most recent administrations Medication Order MAR Action Action Date Dose Rate Site Filgrastim-sndz (Zarxio) inj 480 mcg 480 mcg, Subcutaneous, ONCE, On Lori 07/17/23 at 0930, For 1 dose, In Refrigerator Given 07/17/2023 9:36 AM EST 480 mcg Arm Left Upper documented in this encounter Advance Directives Documents on File Type Date Recorded Patient Pipe Wrapping Machine Operator Expl anation Power of Ground Control Approach Technician 06/06/2022 POWER OF A TTORNEY Latest [...] patient have Health Care Power of Ground Control Approach Technician? No Full Code 03/12/2022 5:18 PM 03/15/2022 7:16 PM This o rder reflects the patients wishes and were consensually agreed upon. Question Answer Comments Discussion of Advance Directives occurred with: Patient Does the patient have a Living Will? No Does the patient have Health Care Power of Ground Control Approach Technician? No Full Code 12/04/2021 5:18 PM 01/22/2022 8:17 PM This o rder reflects the patients wishes and were consensually agreed upon. Question Answer Comments Discussion of Advance Directives occurred with: Patient Does the patient have a Living Will? No Does the patient have Health Care Power of Ground Control Approach Technician? No Care Teams Skip Hoist Operator Relationship Specialty Start Date End Date Anthony Rico III, MD 200 [facility] [place] [address] PCP - General 03/18/1996 documented as of this encounter
--- OUTSIDE RECORDS SUMMARY | 2023-07-24 14:21 | External Medical Summary | Summary of Care ---
Author Name Unknown Organization [facility] Address [address] [facility] [place] [place] [address] Phone [phone] Care Team Providers Care Design Painter Name Role Phone Jacky THOMAS MD, Anthony Moctezuma Primary Care Provider [phone] Encounter Details Date Type Department Care Team (Late st Contact Info) Description 07/17/2023 9:00 AM EST Nurse Only Hematology/Oncology Scenery [place] [address] [place] [address] [place], Nurse Hem Onc Scenery [address] [place] [address] Arrived Allergies Active Allergy Reactions Criticality Noted [...] bedtime. 180 Tablet 1 06/23/2023 Active Nystatin 722895 UNIT/ML Mouth/Throat Suspension Swish and swallow 5 [...] Anticoagulation management encounter 09/05/2010 long term care phlebotomist current use of anticoagulant therapy 0 09/05/2010 [...] mRNA, LNP-s, No Pre serve, 2-Dose Series ([employer]) 06/19/2021,10/24/2020,10/03/2020 H1N1 2009 Influenza, IM 06/14/2009 Hepatitis [...] Nursing Notes * Genie Garcia RN - 07/17/2023 9:26 AM EST Patient to receive 1 unit plt for plt <10. Called [facility] blood bank ([place]). They have platelets. Called [facility] (Haylee) and central scheduling (Clary). Patient scheduled for today at 10am. Patient verbalized understanding of appt time. Faxed order to [facility]/ blood bank. Patient reports fever 101.[address] Killian to see patient. documented in this encounter Plan of Treatment Upcoming Encounters Date Type Department Care Team (Late st Contact Info) Description 07/21/2023 8:30 AM EST Laboratory Laboratory [place] [facility] [address] [place] [phone] [facility] [address] [place] [address] 07/21/2023 9:00 AM EST Nurse Only Hematology/Oncology Scenery [facility] [address] [place], [place] [address] Park, Nurse Hem Onc Scenery [address] [place], [place] [address] 07/22/2023 1:15 PM EST Office Visit Otolaryngology [facility] [address] [facility] [place] [address] eWndi Cummings MD [address] [place] [address] 07/24/2023 8:30 AM EST Laboratory Laboratory [facility] [address] [place] [address] [place], Lab Scenery [address] [facility] [place], [place] [address] 07/24/2023 9:00 AM EST Nurse Only Hematology/Oncology [facility] [address] [place] [address] Park, Nurse Hem Onc Scenery [address] [place], [place] [address] 07/24/2023 9:40 AM EST Office Visit [facility] Practice [facility] [address] [place], [place] [address] [place] IIIAnthony MD [address] [place], [place] [address] 07/29/2023 8:30 AM EST Laboratory Laboratory [facility] [address] [place], [place] [phone] Park, Lab Scenery [address] [facility] [place], [place] [address] 07/29/2023 9:00 AM EST Nurse Only Hematology/Oncology [facility] [address] [place] [address] Park, Nurse Hem Onc Scenery [address] [place] [address] 07/31/2023 8:30 AM EST Laboratory Laboratory Scenery [facility] [address] [place] [address] Park, Lab Scenery [address] [place] [address] 07/31/2023 9:00 AM EST Nurse Only Hematology/Oncology Scenery [facility] [address] [place] [address] Park, Nurse Hem Onc Scenery [address] [place] [address] 08/05/2023 8:30 AM EST Laboratory Laboratory Scenery [facility] [address] [place] [address] Park, Lab Scenery [address] [place] [address] 08/05/2023 9:00 AM EST Nurse Only Hematology/Oncology Scenery [facility] [address] [place] [address] Park, Nurse Hem Onc Scenery [address] [place] [address] 08/07/2023 8:30 AM EST Laboratory Laboratory [facility] [address] [place] [address] Park, Lab Scenery [address] [place] [address] 08/07/2023 9:00 AM EST Nurse Only Hematology/Oncology Scenery [facility] [address] [place] [address] Park, Nurse Hem Onc Scenery [address] [place] [address] 08/11/2023 8:30 AM EST Laboratory Laboratory Scenery [facility] [address] [place] [address] Park, Lab Scenery [address] [place] [address] 08/11/2023 9:00 AM EST Nurse Only Hematology/Oncology Scenery [facility] [address] [place] [address] Park, Nurse Hem Onc Scenery [address] [place] [address] 08/14/2023 8:30 AM EST Laboratory Laboratory Scenery [facility] [address] [place] [address] Park, Lab Scenery [address] [place] [address] 08/14/2023 9:00 AM EST Nurse Only Hematology/Oncology Scenery [facility] [address] [place] [address] Park, Nurse Hem Onc Scenery [address] [place] [address] 08/18/2023 8:30 AM EST Laboratory Laboratory Scenery [facility] [address] [place] [address] Park, Lab Scenery [address] [place] [address] 08/18/2023 9:00 AM EST Nurse Only Hematology/Oncology Scenery [facility] [address] [place] [address] Park, Nurse Hem Onc Scenery [address] [place] [address] 08/21/2023 8:30 AM EST Laboratory Laboratory Scenery [facility] [address] [place] [address] Park, Lab Scenery [address] [place] [address] 08/21/2023 9:00 AM EST Nurse Only Hematology/Oncology [facility] [place] [address] [place], [place] [address] Park, Nurse Hem Onc Scenery [address] [place] [address] 08/25/2023 8:30 AM EST Laboratory Laboratory [facility] [place] [address] [place], [place] [phone] Park, Lab Scenery [address] [place], [place] [address] 08/25/2023 9:00 AM EST Nurse Only Hematology/Oncology [facility] [place] [address] [place], [place] [address] Park, Nurse Hem Onc Scenery [address] [place] [address] 08/29/2023 9:15 AM EST Office Visit Hematology/Oncology [facility] [address] [place], [place] [address] [place] Killian MD [address] [place], [place] [address] 10/03/2023 10:30 AM EST Telemedicine Urology Zhou Yap [address] [place] [address] Kd Dickens MD [address] [place] [address] 7, Telemed [facility] Urology Ex Rm [address] [place] [address] 03/18/2024 11:00 AM EDT Office Visit Dermatology [facility] [address] [place], [place] [address] Erica Rashid MD [address] [place] [address] Health Maintenance Due Date Last Done Comments [...] this encounter Medical Devices Implanted Type Area Hand Outside Cutter Device Identifier Shelf Expiration Date Model / Serial / Lot Port Implant W/8f Poly Cath - [id number] Implanted:Qty : 1 on 11/23/2021 by Tae Porras, DO at OR [facility] Right: Chest CR BARD : PERIPHERAL VASCULAR [id number] 09/03/2022 [id number] / / [id number] Port Implant W/8f Poly Cath - [id number] Implanted:Qty : 1 on 12/26/2022 by Fabián Del Cid, DO at OR [facility] Right: Chest CR BARD : PERIPHERAL VASCULAR [id number] 04/03/2024 [id number] / / [id number] documented as of this encounter Advance Directives Documents on File Type Date Recorded Patient Evaluation Advisor Expl anation Power of Yarn Sizer 06/06/2022 POWER OF A TTORNEY Latest Code [...] the patient have Health Care Power of Yarn Sizer? No Full Code 03/12/2022 5:18 PM 03/15/2022 7:16 PM This o rder reflects the patients wishes and were consensually agreed upon. Question Answer Comments Discussion of Advance Directives occurred with: Patient Does the patient have a Living Will? No Does the patient have Health Care Power of Yarn Sizer? No Full Code 12/04/2021 5:18 PM 01/22/2022 8:17 PM This o rder reflects the patients wishes and were consensually agreed upon. Question Answer Comments Discussion of Advance Directives occurred with: Patient Does the patient have a Living Will? No Does the patient have Health Care Power of Yarn Sizer? No Care Teams Design Painter Relationship Specialty Start Date End Date Anthony Rico III, MD [address] [place] [address] PCP - General 03/18/1996 documented as of this encounter
--- OUTSIDE RECORDS SUMMARY | 2023-07-24 14:21 | External Medical Summary | Summary of Care ---
Author Name Unknown Organization [facility] Address [address] [place] [address] Phone [phone] Care Team Providers Care Med Peds Name Role Phone Jacky THOMAS MD, Anthony Moctezuma Primary Care Provider [phone] Reason for Visit * Reason Onset Date Comments Precert Future 07/15/2023 neupogen Encounter Details Date Type Department Care Team (Late st Contact Info) Description 07/15/2023 Telephone Hematology/Oncology Treatment, [place] [address] [place] [address] [place] Killian MD [address] [place] [address] Precert Future (neupogen) Allergies Active Allergy Reactions [...] bedtime. 180 Tablet 1 06/23/2023 Active Nystatin 433536 UNIT/ML Mouth/Throat Suspension Swish and swallow 5 [...] mRNA, LNP-s, No Pre serve, 2-Dose Series ([employer]) 06/19/2021,10/24/2020,10/03/2020 H1N1 2009 Influenza, IM 06/14/2009 Hepatitis [...] like to start G-CSF prophylaxis 480 microgram [id number] and see how he does." [place] plan built and routed for signature. Waiting for auth. Precert: please obtain auth- patient will be due for neupogen 07/17/23. Thanks! documented in this encounter Plan of Treatment Upcoming Encounters Date Type Department Care Team (Late st Contact Info) Description 07/15/2023 11:00 AM EST Office Visit Family Practice [facility] [place] [address] [place] [address] Maria Teresa Nelson, [address] [place], [place] [address] 07/17/2023 8:30 AM EST Laboratory Laboratory [facility] [place] [address] [place] [phone] Park, Lab Scenery [address] [facility] [place] [address] 07/17/2023 9:00 AM EST Nurse Only Hematology/Oncology [facility] [address] [place], [place] [address] Park, Nurse Hem Onc Scenery [address] [place], [place] [address] 07/21/2023 8:30 AM EST Laboratory Laboratory [facility] [address] [place], [place] [phone] Park, Lab Scenery [address] [facility] [place], [place] [address] 07/21/2023 9:00 AM EST Nurse Only Hematology/Oncology [facility] [place] [address] [place], [place] [address] Park, Nurse Hem Onc Scenery [address] [place] [address] 07/22/2023 1:15 PM EST Office Visit Otolaryngology [facility] [address] [place] [address] Wendi Cummings MD [address] [place] [address] 07/24/2023 8:30 AM EST Laboratory Laboratory [facility] [address] [place], [place] [address] Park, Lab Scenery [address] [place], [place] [address] 07/24/2023 9:00 AM EST Nurse Only Hematology/Oncology [facility] [address] [place], [place] [address] Park, Nurse Hem Onc Scenery [address] [place], [place] [address] 07/24/2023 9:40 AM EST Office Visit Family Practice [facility] [address] [place], [place] [address] [place] IIIAnthony MD [address] [place], [place] [address] 07/29/2023 8:30 AM EST Laboratory Laboratory [facility] [address] [place], [place] [phone] [place], Lab Scenery [address] [place] [address] 07/29/2023 9:00 AM EST Nurse Only Hematology/Oncology [facility] [address] [place] [address] Park, Nurse Hem Onc Scenery [address] [place] [address] 07/31/2023 8:30 AM EST Laboratory Laboratory [facility] [address] [place] [address] Park, Lab Scenery [address] [place] [address] 07/31/2023 9:00 AM EST Nurse Only Hematology/Oncology Scenery [facility] [address] [place] [address] Park, Nurse Hem Onc Scenery [address] [place] [address] 08/05/2023 8:30 AM EST Laboratory Laboratory Scenery [facility] [address] [place] [address] Park, Lab Scenery [address] [place] [address] 08/05/2023 9:00 AM EST Nurse Only Hematology/Oncology Scenery [facility] [address] [place] [address] Park, Nurse Hem Onc Scenery [address] [place] [address] 08/07/2023 8:30 AM EST Laboratory Laboratory Scenery [facility] [address] [place] [address] Park, Lab Scenery [address] [place] [address] 08/07/2023 9:00 AM EST Nurse Only Hematology/Oncology Scenery [facility] [address] [place] [address] Park, Nurse Hem Onc Scenery [address] [place] [address] 08/11/2023 8:30 AM EST Laboratory Laboratory Scenery [facility] [address] [place] [address] Park, Lab Scenery [address] [place] [address] 08/11/2023 9:00 AM EST Nurse Only Hematology/Oncology Scenery [facility] [address] [place] [address] Park, Nurse Hem Onc Scenery [address] [place] [address] 08/14/2023 8:30 AM EST Laboratory Laboratory Scenery [facility] [address] [place] [address] Park, Lab Scenery [address] [place] [address] 08/14/2023 9:00 AM EST Nurse Only Hematology/Oncology Scenery [facility] [address] [place] [address] Park, Nurse Hem Onc Scenery [address] [place] [address] 08/18/2023 8:30 AM EST Laboratory Laboratory Scenery [facility] [address] [place] [address] Park, Lab Scenery [address] [place] [address] 08/18/2023 9:00 AM EST Nurse Only Hematology/Oncology Scenery [facility] [address] [place] [address] Park, Nurse Hem Onc Scenery [address] [place] [address] 08/21/2023 8:30 AM EST Laboratory Laboratory Scenery [facility] [address] [place] [address] Park, Lab Scenery [address] [place] [address] 08/21/2023 9:00 AM EST Nurse Only Hematology/Oncology Scenery [facility] [address] [place] [address] Park, Nurse Hem Onc Scenery [address] [place] [address] 08/25/2023 8:30 AM EST Laboratory Laboratory Scenery [facility] [address] [place] [address] Park, Lab [facility] [address] [facility] [address] [place], [place] [address] 08/25/2023 9:00 AM EST Nurse Only Hematology/Oncology [facility] [place] [address] [place], [place] [address] Park, Nurse Hem Onc [facility] [address] [facility] [address] [place], [place] [address] 08/29/2023 9:15 AM EST Office Visit Hematology/Oncology [facility] [place] [address] [place], [place] [address] [place] Killian MD [address] [facility] [address] [place], [place] [address] 10/03/2023 10:30 AM EST Telemedicine Urology Zhou Yap [address] [place] [address] Kd Dickens MD [address] [place] [address] 7, Telemed [facility] Urology Ex Rm [address] [place] [address] 03/18/2024 11:00 AM EDT Office Visit Dermatology [facility] [place] [address] [facility] [address] [place], [place] [address] Erica Rashid MD [address] [facility] [place], [place] [address] Health Maintenance Due Date Last Done Comments [...] this encounter Medical Devices Implanted Type Area Rn Admissions Device Identifier Shelf Expiration Date Model / Serial / Lot Port Implant W/8f Poly Cath - [id number] Implanted:Qty : 1 on 11/23/2021 by Tae Porras, at OR [facility] Right: Chest CR BARD : PERIPHERAL VASCULAR [id number] 09/03/2022 [id number] / / [id number] Port Implant W/8f Poly Cath - [id number] Implanted:Qty : 1 on 12/26/2022 by Fabián Del Cid, DO at OR [facility] Right: Chest CR BARD : PERIPHERAL VASCULAR [id number] 04/03/2024 [id number] / / [id number] documented as of this encounter Advance Directives Documents on File Type Date Recorded Patient Account Support Specialist Expl anation Power of Printer Apprentice 06/06/2022 POWER OF A TTORNEY Latest Code [...] the patient have Health Care Power of Printer Apprentice? No Full Code 03/12/2022 5:18 PM 03/15/2022 7:16 PM This o rder reflects the patients wishes and were consensually agreed upon. Question Answer Comments Discussion of Advance Directives occurred with: Patient Does the patient have a Living Will? No Does the patient have Health Care Power of Printer Apprentice? No Full Code 12/04/2021 5:18 PM 01/22/2022 8:17 PM This o rder reflects the patients wishes and were consensually agreed upon. Question Answer Comments Discussion of Advance Directives occurred with: Patient Does the patient have a Living Will? No Does the patient have Health Care Power of Printer Apprentice? No Care Teams Med Peds Relationship Specialty Start Date End Date Anthony Rico III, MD [address] [facility] [place] [address] PCP - General 03/18/1996 documented as of this encounter
--- OUTSIDE RECORDS SUMMARY | 2023-07-24 14:22 | External Medical Summary ---
Author Name Unknown Address Unknown Organization [facility] [address] [place] [address] Laboratory Report Ordering Provider Test Date Status FIORDALIZA MAX 07/14/2023 08:44:04 Final Observation Date Value Abnormality Reference (Units ) Status Nucleated erythrocytes/100 leukocytes [Ratio] in Blood by Automated count 07/14/2023 08:44:04 Final Polychromasia [Presence] in Blood by Light microscopy 07/14/2023 08:44:04 Moderate Abnormal None Seen Final Performing Location [facility] [place] [address]
--- OUTSIDE RECORDS SUMMARY | 2023-07-24 14:22 | External Medical Summary ---
Author Name Unknown Address Unknown Organization [facility] [place] [address] Laboratory Report Ordering Provider Test Date Status FIORDALIZA MAX 07/14/2023 08:44:04 Final Observation Date Value Abnormality Reference (Units ) Status WBC, Total 07/14/2023 08:44:04 0.24 Below lower panic limits 4.00-10.80 (K/uL) Final RBC 07/14/2023 08:44:04 2.86 4.50-5.25 (M/uL) Final Hemoglobin 07/14/2023 08:44:04 8.4 Below low normal 14.0-16.8 (g/dL) Final HCT 07/14/2023 08:44:04 25.8 Below low normal 40.0-48.4 (%) Final MCV 07/14/2023 08:44:04 90.2 82.0-99.5 (fL) Final MCH 07/14/2023 08:44:04 29.4 27.0-34.0 (pg) Final MCHC 07/14/2023 08:44:04 32.6 32.0-36.0 (g/dL) Final RDW 07/14/2023 08:44:04 13.1 11.5-15.5 (%) Final Platelets 07/14/2023 08:44:04 <10 Below lower panic limits 140-400 (K/uL) Final MPV 07/14/2023 08:44:04 8.0 6.6-11.1 (fL) Final Performing Location [facility] [place] [address]
--- OUTSIDE RECORDS SUMMARY | 2023-07-24 14:22 | External Medical Summary | Summary of Care ---
Author Name Unknown Organization [facility] Address [address] [place] [place] [place] [address] Phone [phone] Care Team Providers Care Generator Technician Name Role Phone Jacky THOMAS MD, Terry Moctezuma Primary Care Provider [phone] Reason for Visit * Reason Onset Date Comments Medication Refill 07/12/2023 Encounter Details Date Type Department Care Team (Late st Contact Info) Description 07/12/2023 Refill Family Practice [facility] [address] [place] [address] Terry Butterfield III, MD [address] [place] [address] HTN, goal below 140/80 Allergies Active Allergy Reactions Criticality Noted Date Comments Bee Venom Low 10/07/2018 Other reaction(s): SWELLING Nitrofurantoin Monohyd Macro Other (Please comment) 02/14/2014 "Flu-like symptoms, Headache, Fever, Red dots on skin-on legs mainly" Happened during end of 10 day course. documented as of this encounter (statuses as of 07/13/2023) Medications Medication Sig Dispensed Refills Start Date [...] bedtime. 180 Tablet 1 06/23/2023 Active Nystatin 711455 UNIT/ML Mouth/Throat Suspension Swish and swallow 5 mL in the morning and 5 mL before bedtime. 1000 mL 1 06/24/2023 Active Losartan Potassium 100 MG Oral Tablet (Cozaar)Indicati ons:HTN, goal below 140/80 Take 1 Tablet by mouth in the morning. 90 Tablet 1 07/13/2023 Active Losartan Potassium 100 MG Oral Tablet (Cozaar)Indicati ons:HTN, goal below 140/80 Take 1 Tablet (100 mg) by mouth in the morning. 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 0 09/05/2010 [...] as of this encounter (statuses as of 07/13/2023) Resolved Problems Problem Noted Date Diagnosed Date [...] as of this encounter (statuses as of 07/13/2023) Immunizations Name Administration Dates Next Due COVID-19 mRNA, LNP-s, No Pre serve, 2-Dose Series ([address]) 06/19/2021,10/24/2020,10/03/2020 H1N1 2009 Influenza, IM 06/14/2009 Hepatitis [...] encounter Miscellaneous Notes * Telephone Encounter - Yaz Espino RPh - 07/13/2023 9:01 PM ESTSigned Prescriptions: Disp Refills Losartan Potassium 100 MG Oral Tablet (Coz*90 Tab*1 Sig: Take 1Tablet by mouth in the morning.Authorizing Provider: TERRY BUTTERFIELD III User: YAZ ESPINO NN documented in this encounter Plan of Treatment Upcoming Encounters Date Type Department Care Team (Late st Contact Info) Description 07/14/2023 8:30 AM EST Laboratory Laboratory [facility] [place] [address] [place] [address] Park, Lab Scenery [address] [place] [address] 07/14/2023 9:00 AM EST Nurse Only Hematology/Oncology Scenery [place] [address] [place] [address] Park, Nurse Hem Onc Scenery [address] [place] [address] 07/15/2023 11:00 AM EST Office Visit Family Practice [facility] [address] [place] [address] Maria Teresa Nelson, DO [address] [place] [address] 07/17/2023 8:30 AM EST Laboratory Laboratory [facility] [address] [place], [place] [phone] Park, Lab Scenery [address] [facility] [place], [place] [address] 07/17/2023 9:00 AM EST Nurse Only Hematology/Oncology [facility] [place] [address] [place] [address] Park, Nurse Hem Onc Scenery [address] [place] [address] 07/21/2023 8:30 AM EST Laboratory Laboratory [facility] [place] [address] [place] [phone] Park, Lab Scenery [address] [facility] [place] [address] 07/21/2023 9:00 AM EST Nurse Only Hematology/Oncology [facility] [place] [address] [place] [address] Park, Nurse Hem Onc Scenery [address] [place] [address] 07/22/2023 1:15 PM EST Office Visit Otolaryngology [facility] [address] [place] [address] Wendi Cummings MD [address] [place] [address] 07/24/2023 8:30 AM EST Laboratory Laboratory [facility] [address] [place] [address] Park, Lab Scenery [address] [place] [address] 07/24/2023 9:00 AM EST Nurse Only Hematology/Oncology [facility] [address] [place] [address] Park, Nurse Hem Onc Scenery [address] [place], [place] [address] 07/24/2023 9:40 AM EST Office Visit Family Practice [facility] [address] [place] [address] [place] Terry THOMAS MD [address] [place] [address] 07/29/2023 8:30 AM EST Laboratory Laboratory [facility] [address] [place] [address] Park, Lab Scenery [address] [place] [address] 07/29/2023 9:00 AM EST Nurse Only Hematology/Oncology Scenery [facility] [address] [place] [address] Park, Nurse Hem Onc Scenery [address] [place] [address] 07/31/2023 8:30 AM EST Laboratory Laboratory [facility] [address] [place] [address] Park, Lab Scenery [address] [place] [address] 07/31/2023 9:00 AM EST Nurse Only Hematology/Oncology Scenery [facility] [address] [place] [address] Park, Nurse Hem Onc Scenery [address] [place] [address] 08/05/2023 8:30 AM EST Laboratory Laboratory Scenery [facility] [address] [place] [address] Park, Lab Scenery [address] [place] [address] 08/05/2023 9:00 AM EST Nurse Only Hematology/Oncology Scenery [facility] [address] [place] [address] Park, Nurse Hem Onc Scenery [address] [place] [address] 08/07/2023 8:30 AM EST Laboratory Laboratory [facility] [address] [place] [address] Park, Lab Scenery [address] [place] [address] 08/07/2023 9:00 AM EST Nurse Only Hematology/Oncology Scenery [place] [address] [place] [address] Park, Nurse Hem Onc Scenery [address] [place] [address] 08/11/2023 8:30 AM EST Laboratory Laboratory Scenery [facility] [address] [place] [address] Park, Lab Scenery [address] [place] [address] 08/11/2023 9:00 AM EST Nurse Only Hematology/Oncology Scenery [facility] [address] [place] [address] Park, Nurse Hem Onc Scenery [address] [place] [address] 08/14/2023 8:30 AM EST Laboratory Laboratory Scenery [facility] [address] [place] [address] Park, Lab Scenery [address] [place] [address] 08/14/2023 9:00 AM EST Nurse Only Hematology/Oncology Scenery [facility] [address] [place] [address] Park, Nurse Hem Onc Scenery [address] [place] [address] 08/18/2023 8:30 AM EST Laboratory Laboratory Scenery [facility] [address] [place] [address] Park, Lab Scenery [address] [place] [address] 08/18/2023 9:00 AM EST Nurse Only Hematology/Oncology Scenery [place] [address] [place] [address] Park, Nurse Hem Onc Scenery [address] [place] [address] 08/21/2023 8:30 AM EST Laboratory Laboratory Scenery [facility] [address] [place] [address] Park, Lab Scenery [address] [place] [address] 08/21/2023 9:00 AM EST Nurse Only Hematology/Oncology Scenery [facility] [address] [place] [address] Park, Nurse Hem Onc Scenery [address] [place] [address] 08/25/2023 8:30 AM EST Laboratory Laboratory [facility] [place] [address] [place], [place] [address] [place], Lab [facility] [address] [place], [place] [address] 08/25/2023 9:00 AM EST Nurse Only Hematology/Oncology [facility] [place] [address] [place] [address] Park, Nurse Hem Onc Scenery [address] [address] 08/29/2023 9:15 AM EST Office Visit Hematology/Oncology [facility] [place] [address] [place] [address] [place] Killian MD [address] [facility] [place] [address] 10/03/2023 10:30 AM EST Telemedicine Urology Zhou Yap [address] [place] [address] [place] [address] Kd Dickens MD [address] [place] [address] [place] [address] 7, Telemed [facility] Urology Ex Rm [address] [facility] [place] [address] 03/18/2024 11:00 AM EDT Office Visit Dermatology [facility] [place] [address] [place], [place] [address] Erica Rashid MD [address] [facility] [address] [place], [place] [address] Health Maintenance Due Date Last Done Comments [...] this encounter Medical Devices Implanted Type Area Pharmaceutical Salesperson Device Identifier Shelf Expiration Date Model / Serial / Lot Port Implant W/8f Poly Cath - [id number] Implanted:Qty : 1 on 11/23/2021 by Tae Porras, DO at OR [facility] Right: Chest CR BARD : PERIPHERAL VASCULAR [id number] 09/03/2022 [id number] / / [id number] Port Implant W/8f Poly Cath - [id number] Implanted:Qty : 1 on 12/26/2022 by Fabián Del Cid, DO at OR [facility] Right: Chest CR BARD : PERIPHERAL VASCULAR [id number] 04/03/2024 [id number] / / [id number] documented as of this encounter Visit Diagnoses Diagnosis HTN, goal below 140/80 Unspecified essential hypertension documented in this encounter Advance Directives Documents on File Type Date Recorded Patient Utilities Ground Worker Expl anation Power of Supervisor Backfilling 06/06/2022 POWER OF A TTORNEY Latest Code [...] the patient have Health Care Power of Supervisor Backfilling? No Full Code 03/12/2022 5:18 PM 03/15/2022 7:16 PM This o rder reflects the patients wishes and were consensually agreed upon. Question Answer Comments Discussion of Advance Directives occurred with: Patient Does the patient have a Living Will? No Does the patient have Health Care Power of Supervisor Backfilling? No Full Code 12/04/2021 5:18 PM 01/22/2022 8:17 PM This o rder reflects the patients wishes and were consensually agreed upon. Question Answer Comments Discussion of Advance Directives occurred with: Patient Does the patient have a Living Will? No Does the patient have Health Care Power of Supervisor Backfilling? No Care Teams Generator Technician Relationship Specialty Start Date End Date Jacky THOMAS, Terry Moctezuma MD [address] [facility] [place] [address] PCP - General 03/18/1996 documented as of this encounter
--- OUTSIDE RECORDS SUMMARY | 2023-07-24 14:22 | External Medical Summary | Summary of Care ---
Author Name Unknown Organization [facility] Address [address] [facility] [place] [address] Phone [phone] Care Team Providers Care Network Development Coordinator Name Role Phone Jacky THOMAS MD, Anthony Moctezuma Primary Care Provider [phone] Encounter Details Date Type Department Care Team (Late st Contact Info) Description 07/14/2023 9:00 AM EST Nurse Only Hematology/Oncology Scenery [place] [address] [place] [address] Park, Nurse Hem Onc Scenery [address] [place] [address] Arrived Allergies Active Allergy Reactions Criticality Noted Date Comments Bee Venom Low 10/07/2018 Other reaction(s): SWELLING Nitrofurantoin Monohyd Macro Other (Please comment) 02/14/2014 "Flu-like symptoms, Headache, Fever, Red dots on skin-on legs mainly" Happened during end of 10 day course. documented as of this encounter (statuses as of 07/14/2023) Medications Medication Sig Dispensed Refills Start Date [...] bedtime. 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 Called [facility] blood bank (Tommie). They have platelets. Called [facility] ([place]). Patient scheduled for today after he is done in our office. Patient verbalized understanding of appt time. Faxed order to [facility]/ blood bank. documented in this encounter Plan of Treatment Upcoming Encounters Date Type Department Care Team (Late st Contact Info) Description 07/15/2023 11:00 AM EST Office [facility] [place] [address] [place] [address] Maria Teresa Nelson, [address] [facility] [place] [address] 07/17/2023 8:30 AM EST Laboratory Laboratory [place] [employer] [address] [place] [address] [address] [facility] De [place] [facility] [address] [place] [address] [place] [address] 07/17/2023 9:00 AM EST Nurse Only Hematology/Oncology [facility] [place] [address] [place] [address] [address] Park, Nurse Hem Onc Scenery [address] [place], [place] [address] 07/21/2023 8:30 AM EST Laboratory Laboratory Scenery [facility] [address] [place] [address] Park, Lab Scenery [address] [place] [address] 07/21/2023 9:00 AM EST Nurse Only Hematology/Oncology Scenery [place] [address] [place], [place] [address] Park, Nurse Hem Onc Scenery [address] [place], [place] [address] 07/22/2023 1:15 PM EST Office Visit Otolaryngology [facility] [address] [facility] [place] [address] Wendi Cummings MD [address] [facility] [place] [address] 07/24/2023 8:30 AM EST Laboratory [facility] [place] [address] [place], [place] [address] Park, Lab Scenery [address] [place], [place] [address] 07/24/2023 9:00 AM EST Nurse Only Hematology/Oncology Scenery [facility] [address] [place] [address] Park, Nurse Hem Onc Scenery [address] [place], [place] [address] 07/24/2023 9:40 AM EST Office [facility] [address] [place] [address] Anthony Rico III, MD [address] [place] [address] 07/29/2023 8:30 AM EST Laboratory Laboratory Scenery [facility] [address] [place] [address] Park, Lab Scenery [address] [place] [address] 07/29/2023 9:00 AM EST Nurse Only Hematology/Oncology Scenery [facility] [address] [place] [address] Park, Nurse Hem Onc Scenery [address] [place] [address] 07/31/2023 8:30 AM EST Laboratory Laboratory Scenery [facility] [address] [place] [address] Park, Lab Scenery [address] [place] [address] 07/31/2023 9:00 AM EST Nurse Only Hematology/Oncology Scenery [facility] [address] [place] [address] Park, Nurse Hem Onc Scenery [address] [place] [address] 08/05/2023 8:30 AM EST Laboratory Laboratory Scenery [facility] [address] [place] [address] Park, Lab Scenery [address] [place] [address] 08/05/2023 9:00 AM EST Nurse Only Hematology/Oncology Scenery [facility] [address] [place] [address] Park, Nurse Hem Onc Scenery [address] [place] [address] 08/07/2023 8:30 AM EST Laboratory Laboratory Scenery [facility] [address] [place] [address] Park, Lab Scenery [address] [place] [address] 08/07/2023 9:00 AM EST Nurse Only Hematology/Oncology Scenery [facility] [address] [place] [address] Park, Nurse Hem Onc Scenery [address] [place] [address] 08/11/2023 8:30 AM EST Laboratory Laboratory Scenery [facility] [address] [place] [address] Park, Lab Scenery [address] [place] [address] 08/11/2023 9:00 AM EST Nurse Only Hematology/Oncology Scenery [facility] [address] [place] [address] Park, Nurse Hem Onc Scenery [address] [place] [address] 08/14/2023 8:30 AM EST Laboratory Laboratory Scenery [facility] [address] [place] [address] Park, Lab Scenery [address] [place] [address] 08/14/2023 9:00 AM EST Nurse Only Hematology/Oncology Scenery [facility] [address] [place] [address] Park, Nurse Hem Onc Scenery [address] [place] [address] 08/18/2023 8:30 AM EST Laboratory Laboratory Scenery [facility] [address] [place] [address] Park, Lab Scenery [address] [place] [address] 08/18/2023 9:00 AM EST Nurse Only Hematology/Oncology Scenery [facility] [address] [place] [address] Park, Nurse Hem Onc Scenery [address] [place] [address] 08/21/2023 8:30 AM EST Laboratory [facility] [address] [place] [address] Park, Lab Scenery [address] [place] [address] 08/21/2023 9:00 AM EST Nurse Only Hematology/Oncology Scenery [facility] [address] [place] [address] Park, Nurse Hem Onc Scenery [address] [place] [address] 08/25/2023 8:30 AM EST Laboratory Laboratory Scenery [facility] [address] [place] [address] Park, Lab Scenery [address] [place] [address] 08/25/2023 9:00 AM EST Nurse Only [facility]ematology[facility] [address] [place] [address] Park, Nurse Hem Onc Scenery [address] [place] [address] 08/29/2023 9:15 AM EST Office Visit Hematology/Oncology Scenery [facility] [address] [place] [address] [place] Killian MD [address] [place] [address] 10/03/2023 10:30 AM EST Telemedicine Urology Zhou Yap [address] [place] [address] Kd Dickens MD [address] [place] [address] 7, Telemed Nakul Young Urology Ex Rm [address] [place] [address] 03/18/2024 11:00 AM EDT Office [facility] [address] [facility] [place] [address] Erica Rashid MD [address] [place] [address] Health Maintenance Due Date Last Done Comments [...] this encounter Medical Devices Implanted Type Area Fitter Up Device Identifier Shelf Expiration Date Model / Serial / Lot Port Implant W/8f Poly Cath - [id number] Implanted:Qty : 1 on 11/23/2021 by Tae Porras DO at OR [facility] Right: Chest CR BARD : PERIPHERAL VASCULAR [id number] 09/03/2022 [id number] / / [id number] Port Implant W/8f Poly Cath - [id number] Implanted:Qty : 1 on 12/26/2022 by Fabián Del Cid DO at OR [facility] Right: Chest CR BARD : PERIPHERAL VASCULAR [id number] 04/03/2024 [id number] / / [id number] documented as of this encounter Advance Directives Documents on File Type Date Recorded 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 No Full Code 03/12/2022 5:18 PM 03/15/2022 7:16 PM This o rder reflects the patients wishes and were consensually agreed upon. Question Answer Comments Discussion of Advance Directives occurred with: Patient Does the patient have a Living Will? No Does the patient have Health Care Power of Sequins Winder? No Full Code 12/04/2021 5:18 PM 01/22/2022 8:17 PM This o rder reflects the patients wishes and were consensually agreed upon. Question Answer Comments Discussion of Advance Directives occurred with: Patient Does the patient have a Living Will? No Does the patient have Health Care Power of Sequins Winder? No Care Teams Network Development Coordinator Relationship Specialty Start Date End Date Anthony Rico III, MD [address] [facility] [place] [address] PCP - General 03/18/1996 documented as of this encounter
--- OUTSIDE RECORDS SUMMARY | 2023-07-24 14:22 | External Medical Summary | Summary of Care ---
Author Name Unknown Organization [facility] Address [address] [facility] [place] [address] Phone [phone] Care Team Providers Care Associate Pathologist Name Role Phone Jacky THOMAS MD, Anthony Moctezuma Primary Care Provider [phone] Encounter Details Date Type Department Care Team (Late st Contact Info) Description 07/10/2023 9:00 AM EST Nurse Only Hematology/Oncology Scenery [place] [address] [place] [address] [place], Nurse Hem Onc Scenery [address] [place] [address] Arrived Allergies Active Allergy Reactions Criticality Noted Date Comments Bee Venom Low 10/07/2018 Other reaction(s): SWELLING Nitrofurantoin Monohyd Macro Other (Please comment) 02/14/2014 "Flu-like symptoms, Headache, Fever, Red dots on skin-on legs mainly" Happened during end of 10 day course. documented as of this encounter (statuses as of 07/10/2023) Medications Medication Sig Dispensed Refills Start Date [...] bedtime. 180 Tablet 1 06/23/2023 Active Nystatin 460930 UNIT/ML Mouth/Throat Suspension Swish and swallow 5 [...] as of this encounter (statuses as of 07/10/2023) Active Problems Problem Noted Date Diagnosed Date [...] below 70 01/01/2012 Anticoagulation management encounter 09/05/2010 halfway current use of anticoagulant therapy 0 09/05/2010 [...] as of this encounter (statuses as of 07/10/2023) Resolved Problems Problem Noted Date Diagnosed Date [...] as of this encounter (statuses as of 07/10/2023) Immunizations Name Administration Dates Next Due COVID-19 mRNA, LNP-s, No Pre serve, 2-Dose Series ([employer]) 06/19/2021,10/24/2020,10/03/2020 H1N1 2009 Influenza, IM 06/14/2009 [...] of this encounter Nursing Notes * Genie Garcia, RN - 07/10/2023 9:20 AM EST Hgb 9.0, Plt <10. Patient to receive 1 unit platelets. Called [facility] blood bank ([facility]). They have platelets available. Called [facility] ([facility]). Patient scheduled for today as soon as he is done here. Patient verbalized understanding of appt time. Faxed order to [facility]/ blood bank. Patient to return Friday, advised him to call sooner with any questions/ concerns. He verbalized understanding. documented in this encounter Plan of Treatment Upcoming Encounters Date Type Department Care Team (Late st Contact Info) Description 07/14/2023 8:30 AM EST Laboratory Laboratory [facility] [place] Eleuterio De La Cruz [address] [place] [id number] [place], Lab Scenery [address] [place] [address] [place] [address] 07/14/2023 9:00 AM EST Nurse Only Hematology/Oncology [facility] [place] Eleuterio De La Cruz [address] [place] [address] [place], Nurse Hem Onc Scenery [address] [place] [address] [address] 07/15/2023 11:00 AM EST Office Visit Family Practice [facility] [address] [place], [place] [address] Maria Teresa Nelson, DO [address] [place] [address] 07/17/2023 8:30 AM EST Laboratory Laboratory [facility] [address] [place] [phone] [place], Lab Scenery [address] [place] [address] 07/17/2023 9:00 AM EST Nurse Only Hematology/Oncology [facility] [address] [place], [place] [address] Park, Nurse Hem Onc Scenery [address] [place], [place] [address] 07/21/2023 8:30 AM EST Laboratory Laboratory [facility] [address] [place] [phone] [place], Lab Scenery [address] [place], [place] [address] 07/21/2023 9:00 AM EST Nurse Only Hematology/Oncology [facility] [address] [place], [place] [address] Park, Nurse Hem Onc Scenery [address] [place], [place] [address] 07/22/2023 1:15 PM EST Office Visit Otolaryngology [facility] [address] [place] [address] Wendi Cummings MD [address] [place] [address] 07/24/2023 8:30 AM EST Laboratory Laboratory [facility] [address] [place] [address] [place], Lab Scenery [address] [place] [address] 07/24/2023 9:00 AM EST Nurse Only Hematology/Oncology [facility] [address] [place] [address] Park, Nurse Hem Onc Scenery [address] [place] [address] 07/24/2023 9:40 AM EST Office Visit Family Practice [facility] [address] [place] [address] Bayamon III, Anthony Moctezuma MD [address] [place] [address] 07/29/2023 8:30 AM EST Laboratory Laboratory [facility] [address] [place] [phone] [place], Lab Scenery [address] [place] [address] 07/29/2023 9:00 AM EST Nurse Only Hematology/Oncology [facility] Dorothy [place] [address] [place] [address] Park, Nurse Hem Onc Scenery [address] [place] [address] 07/31/2023 8:30 AM EST Laboratory Laboratory [facility] [place] [address] [place] [address] Park, Lab Scenery [address] [place] [address] 07/31/2023 9:00 AM EST Nurse Only Hematology/Oncology Scenery [place] [address] [place] [address] Park, Nurse Hem Onc Scenery [address] [place] [address] 08/05/2023 8:30 AM EST Laboratory Laboratory Scenery [facility] [address] [place] [address] Park, Lab Scenery [address] [place] [address] 08/05/2023 9:00 AM EST Nurse Only Hematology/Oncology Scenery [facility] [address] [place] [address] Park, Nurse Hem Onc Scenery [address] [place] [address] 08/07/2023 8:30 AM EST Laboratory Laboratory Scenery [facility] [address] [place] [address] [place], Lab Scenery [address] [place] [address] 08/07/2023 9:00 AM EST Nurse Only Hematology/Oncology Scenery [facility] [address] [place] [address] Park, Nurse Hem Onc Scenery [address] [place] [address] 08/11/2023 8:30 AM EST Laboratory Laboratory Scenery [facility] [address] [place] [address] [place], Lab Scenery [address] [place] [address] 08/11/2023 9:00 AM EST Nurse Only Hematology/Oncology Scenery [facility] [address] [place] [address] Park, Nurse Hem Onc Scenery [address] [place] [address] 08/14/2023 8:30 AM EST Laboratory Laboratory Scenery [facility] [address] [place] [address] [place], Lab Scenery [address] [place] [address] 08/14/2023 9:00 AM EST Nurse Only Hematology/Oncology Scenery [facility] [address] [place] [address] [place], Nurse Hem Onc Scenery [address] [place] [address] 08/18/2023 8:30 AM EST Laboratory Laboratory Scenery [facility] [address] [place] [address] [place], Lab Scenery [address] [place] [address] 08/18/2023 9:00 AM EST Nurse Only Hematology/Oncology Scenery [facility] [address] [place] [address] Park, Nurse Hem Onc Scenery [address] [place] [address] 08/21/2023 8:30 AM EST Laboratory Laboratory Scenery [place] [address] [place] [address] [place], Lab Scenery [address] [place] [address] 08/21/2023 9:00 AM EST Nurse Only Hematology/Oncology Scenery [place] [address] [place] [address] Park, Nurse Hem Onc Scenery [address] [place] [address] 08/25/2023 8:30 AM EST Laboratory Laboratory Scenery [facility] [address] [place] [address] [place], Lab Scenery [address] [place] [address] 08/25/2023 9:00 AM EST Nurse Only Hematology/Oncology Scenery [facility] [address] [place] [address] Dorothy Nurse Hem Onc [facility] [address] [place], [place] [address] 08/29/2023 9:15 AM EST Office Visit Hematology/Oncology [facility] [place] [address] [place] [address] [place] Killian MD [address] [place] [address] 10/03/2023 10:30 AM EST Telemedicine Urology Zhou Yap [address] [place] [address] [place] [address] Kd Dickens MD [address] [place] [address] [place] [address] 7, Telemed [facility] Urology Ex Rm [address] [facility] [place] [address] 03/18/2024 11:00 AM EDT Office Visit Dermatology [facility] [place] [address] [place] [address] Erica Rashid MD [address] [place] [address] Health Maintenance Due Date Last Done Comments [...] encounter Medical Devices Implanted Type Area Software Solutions Architect Device Identifier Shelf Expiration Date Model / Serial / Lot Port Implant W/8f Poly Cath - [id number] Implanted:Qty : 1 on 11/23/2021 by Tae Porras DO at OR [facility] Right: Chest CR BARD : PERIPHERAL VASCULAR [id number] 09/03/2022 [id number] / / [id number] Port Implant W/8f Poly Cath - [id number] Implanted:Qty : 1 on 12/26/2022 by Fabián Del Cid DO at OR [facility] Right: Chest CR BARD : PERIPHERAL VASCULAR [id number] 04/03/2024 [id number] / / [id number] documented as of this encounter Advance Directives Documents on File Type Date Recorded Patient Financial Services Manager Expl anation Power of Cavalry Officer 06/06/2022 POWER OF A TTORNEY Latest Code [...] the patient have Health Care Power of Cavalry Officer? No Full Code 03/12/2022 5:18 PM 03/15/2022 7:16 PM This o rder reflects the patients wishes and were consensually agreed upon. Question Answer Comments Discussion of Advance Directives occurred with: Patient Does the patient have a Living Will? No Does the patient have Health Care Power of Cavalry Officer? No Full Code 12/04/2021 5:18 PM 01/22/2022 8:17 PM This o rder reflects the patients wishes and were consensually agreed upon. Question Answer Comments Discussion of Advance Directives occurred with: Patient Does the patient have a Living Will? No Does the patient have Health Care Power of Cavalry Officer? No Care Teams Associate Pathologist Relationship Specialty Start Date End Date Anthony Rico III, MD [address] [facility] [place] [address] PCP - General 03/18/1996 documented as of this encounter
--- OUTSIDE RECORDS SUMMARY | 2023-07-24 14:22 | External Medical Summary | Summary of Care ---
Author Name Unknown Organization [facility] Address [address] [facility] [place] [address] Phone [phone] Care Team Providers Care Collector Name Role Phone Jacky THOMAS MD, Anthony Moctezuma Primary Care Provider [phone] Encounter Details Date Type Department Care Team (Late st Contact Info) Description 07/14/2023 Orders Only Hematology/Oncology [facility] [place] [facility] [place] [address] [place] Killian MD [address] [facility] [place] [address] Acute myeloid leukemia in remission (HCC)*; Chemotherapy-induced neutropenia Allergies Active Allergy Reactions Criticality Noted Date [...] UltraSoft Lancets test once daily 100 Each 06/19/2020 Active Amiodarone HCl 200 MG Oral [...] bedtime. 180 Tablet 1 06/23/2023 Active Nystatin 363534 UNIT/ML Mouth/Throat Suspension Swish and swallow 5 [...] below 70 01/01/2012 Anticoagulation management encounter 09/05/2010 snf current use of anticoagulant therapy 0 09/05/2010 [...] mRNA, LNP-s, No Pre serve, 2-Dose Series ([employer]) 06/19/2021,10/24/2020,10/03/2020 H1N1 2009 Influenza, IM 06/14/2009 Hepatitis [...] as of this encounter Progress Notes * [place] Killian MD - 07/14/2023 9:39 AM EST Blood workup done on 07/14/2023: - WBC 240, H&H of 8.4/25.8, platelet count of less than 10,000. Persistent the neutropenia. Intermittent the fever present. He is already on acyclovir, Levaquin and Cresemba prophylaxis. Would like to start G-CSF prophylaxis 480 microgram bexbc-c-ybbg and see how he does. documented in this encounter Plan of Treatment Upcoming Encounters Date Type Department Care Team (Late st Contact Info) Description 07/15/2023 11:00 AM EST Office Visit Family Practice [place] [facility] Rom[place] [address] [place] [address] Maria Teresa Nelson, [address] [place] [address] [address] 07/17/2023 8:30 AM EST Laboratory Laboratory [place] Kunal Romero [address] [place] [address] Sanju De La Cruz [facility] [address] [place] [address] [address] 07/17/2023 9:00 AM EST Nurse Only Hematology/Oncology Scenery [place] [address] [place], [place] [address] Park, Nurse Hem Onc Scenery [address] [place], [place] [address] 07/21/2023 8:30 AM EST Laboratory Laboratory Scenery [place] [address] [place], [place] [address] [place], Lab Scenery [address] [facility] [place], [place] [address] 07/21/2023 9:00 AM EST Nurse Only [facility] [place] [address] [place] [address] Park, Nurse Hem Onc Scenery [address] [place] [address] 07/22/2023 1:15 PM EST Office Visit Otolaryngology [facility] [address] [facility] [place] [address] Wendi Cummings MD [address] [facility] [address] 07/24/2023 8:30 AM EST Laboratory Laboratory [facility] [place] [address] [place] [phone] [place], Lab Scenery [address], [place] [address] 07/24/2023 9:00 AM EST Nurse Only Hematology/Oncology [facility] [place] [address] [place], [place] [address] Park, Nurse Hem Onc Scenery [address] [place], [place] [address] 07/24/2023 9:40 AM EST Office Visit Family Practice [facility] [place] [address] [place], [place] [address] Anthony Rico III, MD [address] [place] [address] 07/29/2023 8:30 AM EST Laboratory Laboratory Scenery [facility] [address] [place] [address] Park, Lab Scenery [address] [place] [address] 07/29/2023 9:00 AM EST Nurse Only Hematology/Oncology Scenery [facility] [address] [place] [address] Park, Nurse Hem Onc Scenery [address] [place] [address] 07/31/2023 8:30 AM EST Laboratory Laboratory Scenery [facility] [address] [place] [address] Park, Lab Scenery [address] [place] [address] 07/31/2023 9:00 AM EST Nurse Only Hematology/Oncology Scenery [facility] [address] [place] [address] Park, Nurse Hem Onc Scenery [address] [place] [address] 08/05/2023 8:30 AM EST Laboratory Laboratory Scenery [facility] [address] [place] [address] Park, Lab Scenery [address] [place] [address] 08/05/2023 9:00 AM EST Nurse Only Hematology/Oncology Scenery [facility] [address] [place] [address] Park, Nurse Hem Onc Scenery [address] [place] [address] 08/07/2023 8:30 AM EST Laboratory Laboratory Scenery [facility] [address] [place] [address] Park, Lab Scenery [address] [place] [address] 08/07/2023 9:00 AM EST Nurse Only Hematology/Oncology Scenery [facility] [address] [place] [address] Park, Nurse Hem Onc Scenery [address] [place] [address] 08/11/2023 8:30 AM EST Laboratory Laboratory Scenery [facility] [address] [place] [address] Park, Lab Scenery [address] [place] [address] 08/11/2023 9:00 AM EST Nurse Only Hematology/Oncology Scenery [facility] [address] [place] [address] Park, Nurse Hem Onc Scenery [address] [place] [address] 08/14/2023 8:30 AM EST Laboratory Laboratory Scenery [facility] [address] [place] [address] Park, Lab Scenery [address] [place] [address] 08/14/2023 9:00 AM EST Nurse Only Hematology/Oncology Scenery [facility] [address] [place] [address] Park, Nurse Hem Onc Scenery [address] [place] [address] 08/18/2023 8:30 AM EST Laboratory Laboratory Scenery [facility] [address] [place] [address] Park, Lab Scenery [address] [place] [address] 08/18/2023 9:00 AM EST Nurse Only Hematology/Oncology Scenery [facility] [address] [place], [place] [address] Park, Nurse Hem Onc Scenery [address] [place], [place] [address] 08/21/2023 8:30 AM EST Laboratory Laboratory Scenery [place] [address] [place], [place] [address] Park, Lab Scenery [address] [place] [address] 08/21/2023 9:00 AM EST Nurse Only Hematology/Oncology Scenery [place] [address] [place], [place] [address] Park, Nurse Hem Onc Scenery [address] [place], [place] [address] 08/25/2023 8:30 AM EST Laboratory Laboratory Scenery [place] [address] [place] [address] Park, Lab Scenery [address] [place] [address] 08/25/2023 9:00 AM EST Nurse Only [facility]ology[facility] [place] [address] [place] [address] Park, Nurse Hem Onc Scenery [address] [place], [place] [address] 08/29/2023 9:15 AM EST Office Visit [facility]ology[facility] [place] [address] [place], [place] [address] [place] Killian MD [address] [place], [place] [address] 10/03/2023 10:30 AM EST Telemedicine Urology Zhou Yap [address] [place] [address] Kd Dickens MD [address] [place] [address] 7, Telemed Nakul Young Urology Ex Rm [address] [place] [address] 03/18/2024 11:00 AM EDT [facility] [place] [address] Erica Rashid MD [address] [place] [address] Health Maintenance Due Date Last Done Comments [...] this encounter Medical Devices Implanted Type Area Decal Transferrer Device Identifier Shelf Expiration Date Model / Serial / Lot Port Implant W/8f Poly Cath - [id number] Implanted:Qty : 1 on 11/23/2021 by Tae Porras, DO at OR [facility] Right: Chest CR BARD : PERIPHERAL VASCULAR [id number] 09/03/2022 [id number] / / [id number] Port Implant W/8f Poly Cath - [id number] Implanted:Qty : 1 on 12/26/2022 by Fabián Del Cid, DO at OR [facility] Right: Chest CR BARD : PERIPHERAL VASCULAR [id number] 04/03/2024 [id number] / / [id number] documented as of this encounter Visit Diagnoses Diagnosis Acute myeloid leukemia in remission (HCC)- Primary Acute myeloid leukemia in remission Chemotherapy-induced neutropenia Drug induced neutropenia documented in this encounter Advance Directives Documents on File Type Date Recorded Patient Ecological Risk Assessor Expl anation Power of Hoop Bender Tank 06/06/2022 POWER OF A TTORNEY Latest Code [...] the patient have Health Care Power of Hoop Bender Tank? No Full Code 03/12/2022 5:18 PM 03/15/2022 7:16 PM This o rder reflects the patients wishes and were consensually agreed upon. Question Answer Comments Discussion of Advance Directives occurred with: Patient Does the patient have a Living Will? No Does the patient have Health Care Power of Hoop Bender Tank? No Full Code 12/04/2021 5:18 PM 01/22/2022 8:17 PM This o rder reflects the patients wishes and were consensually agreed upon. Question Answer Comments Discussion of Advance Directives occurred with: Patient Does the patient have a Living Will? No Does the patient have Health Care Power of Hoop Bender Tank? No Care Teams Collector Relationship Specialty Start Date End Date Anthony Rico III, MD [address] [place] [address] PCP - General 03/18/1996 documented as of this encounter
--- OUTSIDE RECORDS SUMMARY | 2023-07-24 14:22 | External Medical Summary | Summary of Care ---
Author Name Unknown Organization [facility] Address [address] [place] [address] Phone [phone] Care Team Providers Care Gre Instructor Name Role Phone Jacky THOMAS MD, Anthony Moctezuma Primary Care Provider [phone] Reason for Visit * Reason Onset Date Comments Precert Approved 07/04/2023 04 WERO Rondon Encounter Details Date Type Department Care Team (Late st Contact Info) Description 07/04/2023 Telephone Hematology Oncology [facility] [address] [place] [address] Judith Frost MD [address] [place] [address] Precert Approved ( WERO Rondon) Allergies Active Allergy Reactions Criticality Noted Date [...] bedtime. 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 New or re-auth: New authorization Approved/Denied: Approved Drug Name and Formulation: Cresemba 186mg capsules How Prescribed(directions/sig): Take 2 Capsules by mouth in the morning. Day Supply: 30 Did you receive insurance information from outside the chart? No, received insurance information within the chart Valid auth start date: 06/07/23 Valid auth end date: 10/05/23 Rx Insurance Info: [employer] [place] Reference #: N/A Rx Benefits Verified through/on date: 07/10/23 Referral (TE) received from: CAR Cantrell Medication Portable Irrigation Operator P: [phone] F: [phone] 07/10/23,3:26 PM * Telephone Encounter - Negra Cantrell OSA - 07/07/2023 8:31 AM EST [facility] Authorization Submission Submission Information: Medication: Cresemba 186mg Portal used: [facility] Insurance: [employer] Authorization #/Villalba: [id number] Negra Cantrell Medication Portable Irrigation Operator P: [phone] F: [phone] 07/07/2023,8:31 AM * Telephone Encounter - Valentina Cash CPhT - 07/04/2023 12:25 PM EST New or re-auth: re auth Patient Abdias Osei needs a prior authorization for their cresemba through their [facility] insurance. ID: [id number] BIN:[id number] PCN:[id number] Phone: Target ship date is 07/09. Thank you very much, Valentina Cash CPhT [facility] documented in this encounter Plan of Treatment Upcoming Encounters Date Type Department Care Team (Late st Contact Info) Description 07/14/2023 8:30 AM EST Laboratory Laboratory [facility] [place] [address] [facility] [place] [phone] Dorothy, Lab [facility] 200 [facility] [place] [address] 07/14/2023 9:00 AM EST Nurse Only Hematology/Oncology [facility] [place] [address] [place] [address] Dorothy, Nurse Hem Onc [facility] [address] [facility] [place] [address] 07/15/2023 11:00 AM EST Office Visit Family Practice [facility] Dorothy [place] [address] [place] [address] Maria Teresa Nelson, 200 [facility] [place] [address] 07/17/2023 8:30 AM EST Laboratory Laboratory Scenery [facility] [address] [place], [place] [phone] Park, Lab Scenery [address] [place] [address] 07/17/2023 9:00 AM EST Nurse Only Hematology/Oncology Scenery [facility] [address] [place] [address] Park, Nurse Hem Onc Scenery [address] [place] [address] 07/21/2023 8:30 AM EST Laboratory Laboratory [facility] [address] [place], [place] [phone] Dorothy, Lab Scenery [address] [place], [place] [address] 07/21/2023 9:00 AM EST Nurse Only Hematology/Oncology Scenery [facility] [address] [place], [place] [address] Park, Nurse Hem Onc Scenery [address] [place], [place] [address] 07/22/2023 1:15 PM EST Office Visit [facility]olaryngology [facility] [address] Wendi Cummings MD [address] [place] [address] 07/24/2023 8:30 AM EST Laboratory Laboratory [facility] [address] [place], [place] [phone] Park, Lab Scenery [address] [place], [place] [address] 07/24/2023 9:00 AM EST Nurse Only Hematology/Oncology [facility] [address] [place] [address] Park, Nurse Hem Onc Scenery [address] [place] [address] 07/24/2023 9:40 AM EST Office Visit Family Practice [facility] [address] [place] [address] Jay III, Anthony Moctezuma MD [address] [place] [address] 07/29/2023 8:30 AM EST Laboratory Laboratory [facility] [address] [place] [address] Park, Lab Scenery [address] [place] [address] 07/29/2023 9:00 AM EST Nurse Only Hematology/Oncology [facility] [address] [place] [address] Park, Nurse Hem Onc Scenery [address] [place] [address] 07/31/2023 8:30 AM EST Laboratory Laboratory [facility] [address] [place] [address] Park, Lab Scenery [address] [place] [address] 07/31/2023 9:00 AM EST Nurse Only Hematology/Oncology [facility] [address] [place] [address] Park, Nurse Hem Onc Scenery [address] [place] [address] 08/05/2023 8:30 AM EST Laboratory Laboratory [facility] [address] [place] [address] Park, Lab Scenery [address] [place] [address] 08/05/2023 9:00 AM EST Nurse Only Hematology/Oncology Scenery [facility] [address] [place] [address] Park, Nurse Hem Onc Scenery [address] [place] [address] 08/07/2023 8:30 AM EST Laboratory Laboratory Scenery [facility] [address] [place] [address] Park, Lab Scenery [address] [place] [address] 08/07/2023 9:00 AM EST Nurse Only Hematology/Oncology Scenery [facility] [address] [place] [address] Park, Nurse Hem Onc Scenery [address] [place] [address] 08/11/2023 8:30 AM EST Laboratory Laboratory Scenery [facility] [address] [place] [address] Park, Lab Scenery [address] [place] [address] 08/11/2023 9:00 AM EST Nurse Only Hematology/Oncology Sc[facility]ery [place] [address] [place] [address] Park, Nurse Hem Onc Scenery [address] [place] [address] 08/14/2023 8:30 AM EST Laboratory Laboratory Scenery [facility] [address] [place] [address] Park, Lab Scenery [address] [place] [address] 08/14/2023 9:00 AM EST Nurse Only Hematology/Oncology Scenery [facility] [address] [place] [address] Park, Nurse Hem Onc Scenery [address] [place] [address] 08/18/2023 8:30 AM EST Laboratory Laboratory Scenery [facility] [address] [place] [address] Park, Lab Scenery [address] [place] [address] 08/18/2023 9:00 AM EST Nurse Only Hematology/Oncology Scenery [facility] [address] [place] [address] Park, Nurse Hem Onc Scenery [address] [place] [address] 08/21/2023 8:30 AM EST Laboratory Laboratory Scenery [facility] [address] [place] [address] Park, Lab Scenery [address] [place] [address] 08/21/2023 9:00 AM EST Nurse Only Hematology/Oncology Scenery [facility] [address] [place] [address] Park, Nurse Hem Onc Scenery [address] [place] [address] 08/25/2023 8:30 AM EST Laboratory Laboratory Scenery [facility] [address] [place] [address] Park, Lab Scenery [address] [place] [address] 08/25/2023 9:00 AM EST Nurse Only Hematology/Oncology Scenery [facility] [address] [place] [address] Park, Nurse Hem Onc Scenery [address] [place] [address] 08/29/2023 9:15 AM EST Office Visit Hematology/Oncology Scenery [facility] [address] [place] [address] Berlin Killian MD 200 [facility] [place], [place] [address] 10/03/2023 10:30 AM EST Telemedicine Urology Zhou Yap [address] [place] [address] Kd Dickens MD [address] [place] [address] 7, Telemed [facility] Urology Ex Rm [address] [place] [address] 03/18/2024 11:00 AM EDT Office Visit Dermatology [facility] [place] 200 [facility] [place] [address] Erica Rashid MD 200 [facility] [place], [place] [address] Health Maintenance Due Date Last Done Comments [...] this encounter Medical Devices Implanted Type Area Waitress Device Identifier Shelf Expiration Date Model / Serial / Lot Port Implant W/8f Poly Cath - [id number] Implanted:Qty : 1 on 11/23/2021 by Tae Porras DO at OR [facility] Right: Chest CR BARD : PERIPHERAL VASCULAR [id number] 09/03/2022 [id number] / / [id number] Port Implant W/8f Poly Cath - [id number] Implanted:Qty : 1 on 12/26/2022 by Fabián Del Cid DO at OR [facility] Right: Chest CR BARD : PERIPHERAL VASCULAR [id number] 04/03/2024 [id number] / / [id number] documented as of this encounter Advance Directives Documents on File Type Date Recorded Patient Smt Technician Expl anation Power of Welcome Hostess 06/06/2022 POWER OF A TTORNEY Latest Code [...] the patient have Health Care Power of Welcome Hostess? No Full Code 03/12/2022 5:18 PM 03/15/2022 7:16 PM This o rder reflects the patients wishes and were consensually agreed upon. Question Answer Comments Discussion of Advance Directives occurred with: Patient Does the patient have a Living Will? No Does the patient have Health Care Power of Welcome Hostess? No Full Code 12/04/2021 5:18 PM 01/22/2022 8:17 PM This o rder reflects the patients wishes and were consensually agreed upon. Question Answer Comments Discussion of Advance Directives occurred with: Patient Does the patient have a Living Will? No Does the patient have Health Care Power of Welcome Hostess? No Care Teams Gre Instructor Relationship Specialty Start Date End Date Anthony Rico III, MD [address] [place] [address] PCP - General 03/18/1996 documented as of this encounter
--- OUTSIDE RECORDS SUMMARY | 2023-07-24 14:22 | External Medical Summary ---
Author Name Unknown Address Unknown Organization K09:[facility] [address] Laboratory Report Ordering Provider Test Date Status FIORDALIZA MAX 07/14/2023 08:44:04 Final Observation Date Value Abnormality Reference (Units ) Status COMMENT 07/14/2023 08:44:04 WBC < 0.60, WBC differential cancelled. Please call Client Services if differential is required. Final Performing Location [facility] [address]
--- OUTSIDE RECORDS SUMMARY | 2023-07-24 14:22 | External Medical Summary | Summary of Care ---
Author Name Unknown Organization [facility] Address [address] [facility] [address] Phone [phone] Care Team Providers Care Sql Server Developer Name Role Phone Jacky THOMAS MD, Anthony Moctezuma Primary Care Provider [phone] Reason for Visit * Reason Comments Outpatient Testing Encounter Details Date Type Department Care Team (Late st Contact Info) Description 07/14/2023 8:30 AM EST Laboratory Laboratory [facility] [place] [address] [place] [phone] [facility] Lab [facility] [address] [place] [address] AML (acute myeloid leukemia) ([facility]) Allergies Active Allergy Reactions Criticality [...] bedtime. 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 0 [...] mRNA, LNP-s, No Pre serve, 2-Dose Series (KokoChi) 06/19/2021,10/24/2020,10/03/2020 H1N1 2009 Influenza, IM 06/14/2009 Hepatitis [...] 07/14/2023 9:00 AM EST Nurse Only Hematology/Oncology [facility] [place] [address] [place] [address] Dorothy, Nurse Hem Onc [place]ery [address] [place] [address] Arrived 07/15/2023 11:00 AM EST Office Visit Family Practice [facility] Dorothy [place] [address] [place] [address] Maria Teresa Nelson, [address] [place] [address] 07/17/2023 8:30 AM EST Laboratory Laboratory [facility] Dorothy [place] [address] [place] [address] Lena, Lab Scenery [address] [place] [address] 07/17/2023 9:00 AM EST Nurse Only Hematology/Oncology [facility] [place] [address] [place] [address] Park, Nurse Hem Onc [place]enery [address] [place] [address] 07/21/2023 8:30 AM EST Laboratory Laboratory [facility] [address] [place], [place] [address] Park, Lab Scenery [address] [place], [place] [address] 07/21/2023 9:00 AM EST Nurse Only Hematology/Oncology Scenery [place] [address] [place], [place] [address] Park, Nurse Hem Onc Scenery [address] [place], [place] [address] 07/22/2023 1:15 PM EST Office Visit Otolaryngology [facility] [address] [facility] [place] [address] Wendi Cummings MD [address] [facility] [address] 07/24/2023 8:30 AM EST Laboratory Laboratory [facility] [address] [place], [place] [phone] Lena, Lab Scenery [address] [place], [place] [address] 07/24/2023 9:00 AM EST Nurse Only Hematology/Oncology [facility] [place] [address] [place], [place] [address] Park, Nurse Hem Onc Scenery [address] [place] [address] 07/24/2023 9:40 AM EST Office Visit Family Practice [facility] [place] [address] [place], [place] [address] Anthony Rico III, MD [address] [place], [place] [address] 07/29/2023 8:30 AM EST Laboratory Laboratory [facility] [address] [place] [address] Park, Lab Scenery [address] [place] [address] 07/29/2023 9:00 AM EST Nurse Only Hematology/Oncology Scenery [facility] [address] [place] [address] Park, Nurse Hem Onc Scenery [address] [place] [address] 07/31/2023 8:30 AM EST Laboratory Laboratory Scenery [facility] [address] [place] [address] Park, Lab Scenery [address] [place] [address] 07/31/2023 9:00 AM EST Nurse Only Hematology/Oncology Scenery [facility] [address] [place] [address] Park, Nurse Hem Onc Scenery [address] [place] [address] 08/05/2023 8:30 AM EST Laboratory Laboratory Scenery [facility] [address] [place] [address] Park, Lab Scenery [address] [place] [address] 08/05/2023 9:00 AM EST Nurse Only Hematology/Oncology Scenery [facility] [address] [place] [address] Park, Nurse Hem Onc Scenery [address] [place] [address] 08/07/2023 8:30 AM EST Laboratory Laboratory Scenery [facility] [address] [place] [address] Park, Lab Scenery [address] [place] [address] 08/07/2023 9:00 AM EST Nurse Only Hematology/Oncology Scenery [facility] [address] [place] [address] Park, Nurse Hem Onc Scenery [address] [place] [address] 08/11/2023 8:30 AM EST Laboratory Laboratory Scenery [facility] [address] [place] [address] Park, Lab Scenery [address] [place] [address] 08/11/2023 9:00 AM EST Nurse Only Hematology/Oncology Scenery [facility] [address] [place] [address] Park, Nurse Hem Onc Scenery [address] [place] [address] 08/14/2023 8:30 AM EST Laboratory Laboratory Scenery [facility] [address] [place] [address] Park, Lab Scenery [address] [place] [address] 08/14/2023 9:00 AM EST Nurse Only Hematology/Oncology Scenery [place] [address] [place] [address] Park, Nurse Hem Onc Scenery [address] [place] [address] 08/18/2023 8:30 AM EST Laboratory Laboratory Scenery [facility] [address] [place] [address] Park, Lab Scenery [address] [place] [address] 08/18/2023 9:00 AM EST Nurse Only Hematology/Oncology Scenery [facility] [address] [place] [address] Park, Nurse Hem Onc Scenery [address] [place] [address] 08/21/2023 8:30 AM EST Laboratory Laboratory Scenery [facility] [place] [address] [place] [address] Park, Lab Scenery [address] [place] [address] 08/21/2023 9:00 AM EST Nurse Only Hematology/Oncology Scenery [place] [place] [address] [place] [address] Park, Nurse Hem Onc Scenery [address] [place] [address] 08/25/2023 8:30 AM EST Laboratory Laboratory [facility] [address] [place] [address] Park, Lab Scenery [address] [place] [address] 08/25/2023 9:00 AM EST Nurse Only Hematology/Oncology [facility] [place] [address] [place] [address] Park, Nurse Hem Onc Scenery [address] [place] [address] 08/29/2023 9:15 AM EST Office Visit Hematology/Oncology [facility] [place] [address] [place] [address] [place] Killian MD [address] [place] [address] 10/03/2023 10:30 AM EST Telemedicine Urology Zhou Yap [address] [place] [address] Kd Dickens MD [address] [place] [address] 7, Telemed [facility] Urology Ex Rm [address] [place] [address] 03/18/2024 11:00 AM EDT Office Visit Dermatology [employer] [address] [place] [address] Erica Rashid MD 200 [facility] [place] [address] Health Maintenance Due Date Last Done Comments [...] this encounter Medical Devices Implanted Type Area Machinist Apprentice Wood Device Identifier Shelf Expiration Date Model / Serial / Lot Port Implant W/8f Poly Cath - [id number] Implanted:Qty : 1 on 11/23/2021 by Tae Porras, DO at OR [facility] Right: Chest CR BARD : PERIPHERAL VASCULAR [id number] 09/03/2022 [id number] / / [id number] Port Implant W/8f Poly Cath - [id number] Implanted:Qty : 1 on 12/26/2022 by Fabián Del Cid, DO at OR [facility] Right: Chest CR BARD : PERIPHERAL VASCULAR [id number] 04/03/2024 [id number] / / [id number] documented as of this encounter Procedures Procedure Name Priority Date/Time Associated Diagnosis Comments DIFFERENTIAL, AUTOMATED STAT 07/14/2023 8:44 AM EST AML (acute myeloid leukemia) (HCC) CBC STAT 07/14/2023 8:44 AM EST AML (acute myeloid leukemia) (HCC) CBC STAT 07/14/2023 8:44 AM EST AML (acute myeloid leukemia) (HCC) DIFFERENTIAL, TECHNOLOGIST REVIEW Routine 07/14/2023 8:44 AM EST AML (acute myeloid leukemia) (HCC) documented in this encounter Results * (ABNORMAL) DIFFERENTIAL, TECHNOLOGIST REVIEW (07/14/2023 8:44 AM EST) [facility] 07/14/2023 8:59 AM EST [facility]- Polychromasia Moderate(A ) None Seen 07/14/2023 8:59 AM EST [facility]- Blood Venous blood specimen / Unknown Venipuncture / Unknown 07/14/2023 8:44 AM EST 07/14/2023 8:44 AM EST Berlin Killian MD LAB BLOOD ORDERABLES Performing Organization Address City/[facility]/ZIP Co de Phone Number [facility] [address]- [address] [place] [address] * DIFFERENTIAL, AUTOMATED (07/14/2023 8:44 AM EST) Blood Venous blood specimen / Unknown Venipuncture / Unknown 07/14/2023 8:44 AM EST 07/14/2023 8:44 AM EST Narrative [facility] - 07/14/2023 8:59 AM EST WBC < 0.60, WBC differential cancelled. Please call Client Services if differential is required. Berlin Killian MD LAB BLOOD ORDERABLES Performing Organization Address City/[facility]/ZIP Co de Phone Number [facility] [address]- [address] [place] [address] * (ABNORMAL) CBC (07/14/2023 8:44 AM EST) WBC 0.24(LL) 4.00 - 10.80 K/uL 07/14/2023 8:59 AM EST [facility] 56- RBC 2.86 4.50 - 5.25 M/uL 07/14/2023 8:59 AM EST [facility] 56- HGB 8.4(L) 14.0 - 16.8 g/dL 07/14/2023 8:59 AM EST [facility] 56- HCT 25.8(L) 40.0 - 48.4 % 07/14/2023 8:59 AM EST [facility] 56 MCV 90.2 82.0 - 99.5 fL 07/14/2023 8:59 AM EST [facility] 56- MCH 29.4 27.0 - 34.0 pg 07/14/2023 8:59 AM EST [facility] 56 MCHC 32.6 32.0 - 36.0 g/dL 07/14/2023 8:59 AM EST [facility] 56- RDW 13.1 11.5 - 15.5 % 07/14/2023 8:59 AM [facility] 56- PLT <10(LL) 140 - 400 K/uL 07/14/2023 8:59 AM EST [facility] 56- MPV 8.0 6.6 - 11.1 fL 07/14/2023 8:59 AM EST [facility] 56- Blood Venous blood specimen / Unknown Venipuncture / Unknown 07/14/2023 8:44 AM EST 07/14/2023 8:44 AM EST Berlin Killian MD LAB BLOOD ORDERABLES Performing Organization Address City/State/[facility] Co de Phone Number [facility] [address]- [address] [place], [place] [phone] documented in this encounter Visit Diagnoses Diagnosis AML (acute myeloid leukemia) (HCC) Acute myeloid leukemia, without mention of having achieved remission documented in this encounter Advance Directives Documents on File Type Date Recorded 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 No Full Code 03/12/2022 5:18 PM 03/15/2022 7:16 PM This o rder reflects the patients wishes and were consensually agreed upon. Question Answer Comments Discussion of Advance Directives occurred with: Patient Does the patient have a Living Will? No Does the patient have Health Care Power of Hip Hop Dance Instructor? No Full Code 12/04/2021 5:18 PM 01/22/2022 8:17 PM This o rder reflects the patients wishes and were consensually agreed upon. Question Answer Comments Discussion of Advance Directives occurred with: Patient Does the patient have a Living Will? No Does the patient have Health Care Power of Hip Hop Dance Instructor? No Care Teams Sql Server Developer Relationship Specialty Start Date End Date Anthony Rico III, MD 200 [facility] [place] [address] PCP - General 03/18/1996 documented as of this encounter
[2023-07-24 14:23] LABS: Adenovirus PCR Not Detected (NotDetected); Bordetella parapertussis PCR Not Detected (NotDetected); Bordetella pertussis PCR Not Detected (NotDetected); Chlamydia pneumoniae PCR Not Detected (NotDetected); Coronavirus 229E PCR Not Detected (NotDetected); Coronavirus CoV-2 (COVID19)PCR Not Detected (NotDetected); Coronavirus HKU1 PCR Not Detected (NotDetected); Coronavirus NL63 PCR Not Detected (NotDetected); Coronavirus OC43PCR Not Detected (NotDetected); Human Metapneumovirus PCR Not Detected (NotDetected); Influenza A PCR Not Detected (NotDetected); Influenza B PCR Not Detected (NotDetected); Mycoplasma pneumoniae PCR Not Detected (NotDetected); Parainfluenza Virus 1 PCR Not Detected (NotDetected); Parainfluenza Virus 2 PCR Not Detected (NotDetected); Parainfluenza Virus 3 PCR Not Detected (NotDetected); Parainfluenza Virus 4 PCR Not Detected (NotDetected); Respiratory Syncytial VirusPCR Not Detected (NotDetected); Rhinovirus/Enterovirus PCR Not Detected (NotDetected)
--- OUTSIDE RECORDS SUMMARY | 2023-07-24 14:23 | External Medical Summary | Summary of Care ---
Author Name Unknown Organization [facility] Address [address] [address] Phone [phone] Care Team Providers Care Intelligence Senior Sergeant Name Role Phone Jacky THOMAS MD, Anthony Moctezuma Primary Care Provider [phone] Encounter Details Date Type Department Care Team (Late st Contact Info) Description 06/30/2023 Orders Only Hematology/Oncology [facility] [place] [address] [facility] [place] [address] [place] Killian MD [address] [facility] [place] [address] Acute myeloid leukemia in remission (HCC); Anemia Allergies Active Allergy Reactions Criticality Noted Date Comments Bee Venom Low 10/07/2018 Other reaction(s): SWELLING Nitrofurantoin Monohyd Macro Other (Please comment) 02/14/2014 "Flu-like symptoms, Headache, Fever, Red dots on skin-on legs mainly" Happened during end of 10 day course. documented as of this encounter (statuses as of 06/30/2023) Medications Medication Sig Dispensed Refills Start Date [...] bedtime. 180 Tablet 1 06/23/2023 Active Nystatin 012703 UNIT/ML Mouth/Throat Suspension Swish and swallow 5 [...] as of this encounter (statuses as of 06/30/2023) Active Problems Problem Noted Date Diagnosed Date [...] as of this encounter (statuses as of 06/30/2023) Resolved Problems Problem Noted Date Diagnosed Date [...] as of this encounter (statuses as of 06/30/2023) Immunizations Name Administration Dates Next Due COVID-19 mRNA, LNP-s, No Pre serve, 2-Dose Series ([facility]) 06/19/2021,10/24/2020,10/03/2020 H1N1 2009 Influenza, IM 06/14/2009 Hepatitis [...] 06/30/2023 8:30 AM EST Laboratory Laboratory [facility] [address] [place] [phone] [place], Lab Scenery [address] [facility], [place] [address] 06/30/2023 9:00 AM EST Nurse Only [facility] [place] [address] [place], [place] [address] Park, Nurse Hem Onc Scenery [address] [place], [place] [address] 07/03/2023 8:30 AM EST Laboratory Laboratory [facility] [address] [place], [place] [phone] Park, Lab Scenery [address] [place] [address] 07/03/2023 9:00 AM EST Nurse Only Hematology[facility] [place] [address] [place] [address] Park, Nurse Hem Onc Scenery [address] [place], [place] [address] 07/07/2023 8:30 AM EST Laboratory Laboratory Scenery [facility] [address] [place], [place] [phone] Park, Lab Scenery [address] [place] [address] 07/07/2023 9:00 AM EST Nurse Only Hematology/Oncology [facility] [address] [place], [place] [address] Park, Nurse Hem Onc Scenery [address] [place] [address] 07/10/2023 8:30 AM EST Laboratory Laboratory [facility] [address] [place], [place] [phone] Park, Lab Scenery [address] [place], [place] [address] 07/10/2023 9:00 AM EST Nurse Only Hematology[facility] [address] [place], [place] [address] Park, Nurse Hem Onc Scenery [address] [place], [place] [address] 07/10/2023 11:00 AM EST Office Visit Otolaryngology [facility] [address] [facility] [place] [address] Wendi Cummings MD [address] [facility] [place] [address] 07/14/2023 8:30 AM EST Laboratory Laboratory [facility] [address] [place], [place] [phone] Park, Lab Scenery [address] [place] [address] 07/14/2023 9:00 AM EST Nurse Only Hematology/Oncology [facility] [address] [place], [place] [address] Park, Nurse Hem Onc Scenery [address] [place] [address] 07/17/2023 8:30 AM EST Laboratory Laboratory Scen[facility] [address] [place] [phone] Park, Lab Scenery [address] [place] [address] 07/17/2023 9:00 AM EST Nurse Only Hematology/Oncology [facility] [address] [place] [address] Park, Nurse Hem Onc Scenery [address] [place] [address] 07/21/2023 8:30 AM EST Laboratory Laboratory [facility]en[facility] [address] [place] [phone] Park, Lab Scenery [address] [place] [address] 07/21/2023 9:00 AM EST Nurse Only Hematology/Oncology Sc[facility] [place] [address] [place] [address] Park, Nurse Hem Onc Scenery [address] [place] [address] 07/24/2023 8:30 AM EST Laboratory Laboratory Scenery [place] [address] [place] [phone] Park, Lab Scenery [address] [place] [address] 07/24/2023 9:00 AM EST Nurse Only Hematology/Oncology [facility] [address] [place] [address] Park, Nurse Hem Onc Scenery [address] [place] [address] 07/24/2023 9:40 AM EST Office Visit Family Practice [place] [place], [place] [address] [place] [address] Jacky III, Anthony Moctezuma MD [address] [place] [address] 07/29/2023 8:30 AM EST Laboratory Laboratory [facility] [address] [place] [address] Park, Lab Scenery [address] [place] [address] 07/29/2023 9:00 AM EST Nurse Only Hematology/Oncology [facility] [address] [place] [address] Park, Nurse Hem Onc Scenery [address] [place] [address] 07/31/2023 8:30 AM EST Laboratory Laboratory [facility] [address] [place] [phone] Park, Lab Scenery [address] [place] [address] 07/31/2023 9:00 AM EST Nurse Only Hematology[facility] [address] [place] [address] Park, Nurse Hem Onc Scenery [address] [place] [address] 08/05/2023 8:30 AM EST Laboratory Laboratory [facility] [address] [place] [address] Park, Lab Scenery [address] [place] [address] 08/05/2023 9:00 AM EST Nurse Only Hematology/Oncology [facility] [address] [place] [address] Park, Nurse Hem Onc Scenery [address] [place] [address] 08/07/2023 8:30 AM EST Laboratory Laboratory Scenery [facility] [address] [place] [phone] Park, Lab Scenery [address] [place] [address] 08/07/2023 9:00 AM EST Nurse Only Hematology/Oncology [facility] [address] [place] [address] Park, Nurse Hem Onc Scenery [address] [place] [address] 08/11/2023 8:30 AM EST Laboratory Laboratory [facility] [address] [place] [phone] Park, Lab Scenery [address] [place] [address] 08/11/2023 9:00 AM EST Nurse Only Hematology/Oncology Scenery [place] [address] [place] [address] Park, Nurse Hem Onc Scenery [address] [place] [address] 08/14/2023 8:30 AM EST Laboratory Laboratory [facility] [place] [address] [place] [phone] Park, Lab Scenery [address] [place] [address] 08/14/2023 9:00 AM EST Nurse Only Hematology/Oncology [facility] [address] [place] [address] Park, Nurse Hem Onc Scenery [address] [place] [address] 08/15/2023 11:00 AM EST Office Visit Cardiology, [address] [place] [address] Katy García, TITLE INSURANCE AGENT [address] [place] [address] 08/18/2023 8:30 AM EST Laboratory Laboratory [facility] [address] [place] [address] Park, Lab Scenery [address] [place] [address] 08/18/2023 9:00 AM EST Nurse Only Hematology/Oncology [facility] [address] [place] [address] Park, Nurse Hem Onc Scenery [address] [place] [address] 08/21/2023 8:30 AM EST Laboratory Laboratory [facility] [address] [place] [phone] [place], Lab Scenery [address] [place] [address] 08/21/2023 9:00 AM EST Nurse Only Hematology/Oncology [facility] [address] [place] [address] Park, Nurse Hem Onc Scenery [address] [place] [address] 08/25/2023 8:30 AM EST Laboratory Laboratory [facility] [address] [place] [address] Park, Lab Scenery [address] [place] [address] 08/25/2023 9:00 AM EST Nurse Only Hematology/Oncology [facility] [address] [place] [address] Park, Nurse Hem Onc Scenery [address] [place] [address] 08/29/2023 9:15 AM EST Office Visit Hematology/Oncology [facility] [address] [place] [address] [place] Killian MD 200 [facility] [place] [address] 10/03/2023 10:30 AM EST Office Visit Urology, [facility] [address] [facility] [place] [address] dK Dickens MD [address] [facility] [address] [place] [address] 03/18/2024 11:00 AM EDT Office Visit Dermatology [facility] [address] [place] [address] Erica Rashid MD 200 [facility] [place] [address] Health Maintenance Due Date Last Done Comments [...] this encounter Medical Devices Implanted Type Area Manager Golf Device Identifier Shelf Expiration Date Model / Serial / Lot Port Implant W/8f Poly Cath - [id number] Implanted:Qty : 1 on 11/23/2021 by Tae Porras DO at OR [facility] Right: Chest CR BARD : [employer]HER[employer] [id number] 09/03/2022 [id number] / / [id number] Port Implant W/8f Poly Cath - [id number] Implanted:Qty : 1 on 12/26/2022 by Fabián Del Cid DO at OR [facility] Right: Chest CR BARD : PERIPHERAL VASCULAR [id number] 04/03/2024 [id number] / / [id number] documented as of this encounter Procedures Procedure Name Priority Date/Time Associated Diagnosis Comments CBC STAT 06/25/2023 Acute myeloid leukemia in remission (HCC) Anemia TYPE AND SCREEN Routine 06/23/2023 Anemia Acute myeloid leukemia in remission (HCC) documented in this encounter Results * (ABNORMAL) CBC WITH WBC DIFFERENTIAL (06/25/2023) HEMOGLOBIN-OUT SIDE LAB 7.1(A) 14 - 18 G/DL OUTSIDE LAB (SEE SCANNED REPORT) Blood Venous blood specimen / Unknown 06/25/2023 [place] Killian MD LAB BLOOD ORDERABLES Performing Organization Address City/[facility] Co de Phone Number OUTSIDE LAB (SEE SCANNED REPORT) * TYPE AND SCREEN (06/23/2023) Blood Venous blood specimen / Unknown 06/23/2023 [place] Killian MD LAB BLOOD BANK TEST ORDERABLES Performing Organization Address City/[facility] Co de Phone Number OUTSIDE LAB (SEE SCANNED REPORT) documented in this encounter Visit Diagnoses Diagnosis Acute myeloid leukemia in remission (HCC) Acute myeloid leukemia in remission Anemia Anemia, unspecified documented in this encounter Advance Directives Documents on File Type Date Recorded Patient Joint Cutter Machine Expl anation Power of Resource Teacher 06/06/2022 POWER OF A TTORNEY Latest Code [...] the patient have Health Care Power of Resource Teacher? No Full Code 03/12/2022 5:18 PM 03/15/2022 7:16 PM This o rder reflects the patients wishes and were consensually agreed upon. Question Answer Comments Discussion of Advance Directives occurred with: Patient Does the patient have a Living Will? No Does the patient have Health Care Power of Resource Teacher? No Full Code 12/04/2021 5:18 PM 01/22/2022 8:17 PM This o rder reflects the patients wishes and were consensually agreed upon. Question Answer Comments Discussion of Advance Directives occurred with: Patient Does the patient have a Living Will? No Does the patient have Health Care Power of Resource Teacher? No Care Teams Intelligence Senior Sergeant Relationship Specialty Start Date End Date Anthony Rico III, MD [address] [place] [address] PCP - General 03/18/1996 documented as of this encounter
--- OUTSIDE RECORDS SUMMARY | 2023-07-24 14:23 | External Medical Summary ---
Author Name Unknown Address Unknown Organization K[facility] [place] [address] Laboratory Report Ordering Provider Test Date Status FIORDALIZA MAX 07/10/2023 08:40:28 Final Observation Date Value Abnormality Reference (Units ) Status Nucleated erythrocytes/100 leukocytes [Ratio] in Blood by Automated count 07/10/2023 08:40:28 Final Performing Location [facility] [place] [address]
--- OUTSIDE RECORDS SUMMARY | 2023-07-24 14:23 | External Medical Summary ---
Author Name Unknown Address Unknown Organization [facility] [place] [address] Laboratory Report Ordering Provider Test Date Status FIORDALIZA MAX 07/10/2023 08:40:28 Final Observation Date Value Abnormality Reference (Units ) Status COMMENT 07/10/2023 08:40:28 WBC < 0.60, WBC differential cancelled. Please call Client Services if differential is required. Final Performing Location [facility] [place] [address]
--- OUTSIDE RECORDS SUMMARY | 2023-07-24 14:23 | External Medical Summary | Summary of Care ---
Author Name Unknown Organization [facility] Address [address] [facility] [place] [address] Phone [phone] Care Team Providers Care Dental Equipment Mechanic Name Role Phone Jacky THOMAS MD, Anthony Moctezuma Primary Care Provider [phone] Reason for Visit * Reason Onset Date Comments Hospital Follow-Up 07/09/2023 Encounter Details Date Type Department Care Team (Late st Contact Info) Description 07/09/2023 Telephone Ancillary [facility] Dorothy [place] [address] [place] [facility] [place] [address] Raquel Mejía RN Hospital Follow-Up Allergies Active Allergy Reactions Criticality Noted Date Comments Bee Venom Low 10/07/2018 Other reaction(s): SWELLING Nitrofurantoin Monohyd Macro Other (Please comment) 02/14/2014 "Flu-like symptoms, Headache, Fever, Red dots on skin-on legs mainly" Happened during end of 10 day course. documented as of this encounter (statuses as of 07/09/2023) Medications Medication Sig Dispensed Refills Start Date End Date Status MULTIVITAMIN/MINERA L FORMULA TABS OR 1 TABLET DAILY 30 0 03/21/2000 Active OneTouch UltraSoft Lancets test once daily 100 Each 06/19/2020 Active Losartan Potassium 100 MG Oral [...] bedtime. 180 Tablet 1 06/23/2023 Active Nystatin 174366 UNIT/ML Mouth/Throat Suspension Swish and swallow 5 [...] as of this encounter (statuses as of 07/09/2023) Active Problems Problem Noted Date Diagnosed Date [...] 69 01/01/2012 Anticoagulation management encounter 09/05/2010 terminal carman current use of anticoagulant therapy 0 09/05/2010 [...] as of this encounter (statuses as of 07/09/2023) Resolved Problems Problem Noted Date Diagnosed Date [...] as of this encounter (statuses as of 07/09/2023) Immunizations Name Administration Dates Next Due COVID-19 mRNA, LNP-s, No Pre serve, 2-Dose Series (OpenChime) 06/19/2021,10/24/2020,10/03/2020 H1N1 2009 Influenza, IM 06/14/2009 Hepatitis [...] encounter Miscellaneous Notes * Telephone Encounter - Raquel Mejía RN - 07/09/2023 9:21 AM EST Images from the original note were not included. Transitions of Care Note Reason for Referral:Recent Admission Phone visit for follow up: CHRISTOPHER Admitted to: [facility], Date: 06/29/2023 Discharged to: Home Self Care, Date: 07/08/2023 Diagnosis driving hospitalization: Neutropenic Fever, Bactremia Source/Contact: Patient SUBJECTIVE Consent: Verbal consent for review of hospital discharge: Yes REVIEW OF SYSTEMS Patient/Other Reports: Current patient/caregiver problems or concerns: none CV: Denies problems Pulmonary: Denies problems Chills/Sweats/Fever:Denies chills/sweats Denies fever Appetite:Still taking liquids due to lesion on tongue. Current diet: liquids Bowel: denies problems date of last BM: 07/08/2023 Bladder: denies problems Wound (If applicable): N/A Pain:Denies Sleep:Denies problems FUNCTIONAL STATUS: ADL'S: Needs Assistance With:N/A as pt is independent IADL'S: Needs Assistance With:N/A as pt is independent Cognitive and Mental Health: denies problems, alert and oriented x 3, and able to communicate, understand instructions, process information. MEDICATION RECONCILIATION Medications: Discharge med list reviewed with patient or caregiver New medication(s) filled since hospitalization- see below Discontinued medication(s) since hospitalization- see below Reports all medications taken as prescribed. ASSESSMENT Medication Risk Assessment: No risks identified Did patient fail outpatient treatment? No Discharge instructions available for review? Yes PLAN Symptom Monitoring Interventions:Member/caregiver education - signs and symptoms to contact PrimaryCare (DO NOT DELETE-Three scanlon symptoms patient is to report to PCP) 1. Cough, SOB, Wheezing 2. Fever, chills 3. Swelling of lower legs Ruling Machine OperatorPassenger Barge Master of Care interventions/Action Plan: 5 - 7 day follow-up with PCP in place - Date: Dr Nelson 07/15/23 at 11:00 Educated on role of CHRISTOPHER completed with patient/caregiver. Educated patient/caregiver on patient right to have input on CHRISTOPHER plan of care. Verification of Home Health/DME if indicated: NO n/a Identified Care Gaps: Yes Care Gaps closed this call: Appointment made or confirmed, Transition of Care follow-up communication, and Other: ENT Appointment changed to July 22 at 1;15-Dr Cummings suggested he come in 2 weeks rather than right after discharge as no real change will be seen. Re-evaluation of Plan of Care and progress towards goals achievement: Patient education this visit: Verbal, Encouraged po fluids, encouraged use of probiotics. Went over all follow up appointments Plan to discharge needs met, verbalizes understanding and agrees with plan. Raquel Christie, RN documented in this encounter Plan of Treatment Upcoming Encounters Date Type Department Care Team (Late st Contact Info) Description 07/10/2023 8:30 AM EST Laboratory Laboratory [facility] State Eleuterio De La Cruz [address] [place] [phone] Park, Lab Scenery [address] [place] [address] 07/10/2023 9:00 AM EST Nurse Only Hematology/Oncology [facility] State Eleuterio De La Cruz [address] [place] [address] Dorothy, Nurse Hem Onc Scenery [address] [place] [address] [address] 07/14/2023 8:30 AM EST Laboratory Laboratory [facility] [place] Eleuterio De La Cruz [address] [place] [phone] Park, Lab Scenery [address] [place] [address] 07/14/2023 9:00 AM EST Nurse Only Hematology/Oncology Scenery [facility] [place] [address] [place] [address] Park, Nurse Hem Onc Scenery [address] [place] [address] 07/15/2023 11:00 AM EST Office Visit Family Practice [facility] [address] [place] [address] Maria Teresa Nelson, DO [address] [place] [address] 07/17/2023 8:30 AM EST Laboratory Laboratory [facility] [address] [place] [address] Dorothy, Lab Scenery [address] [place], [place] [address] 07/17/2023 9:00 AM EST Nurse Only Hematology/Oncology [facility] [address] [place] [address] Garner, Nurse Hem Onc Scenery [address] [place] [address] 07/21/2023 8:30 AM EST Laboratory Laboratory [facility] Dorothy [place] [address] [place] [address] Park, Lab Scenery [address] [place] [address] 07/21/2023 9:00 AM EST Nurse Only Hematology/Oncology Scenery [place] [address] [place] [address] Park, Nurse Hem Onc Scenery [address] [place] [address] 07/22/2023 1:15 PM EST Office Visit Otolaryngology [facility] [address] [place] [address] Wendi Cummings MD [address] [place] [address] 07/24/2023 8:30 AM EST Laboratory Laboratory [facility] [address] [place], [place] [phone] Park, Lab Scenery [address] [place] [address] 07/24/2023 9:00 AM EST Nurse Only Hematology/Oncology [facility] [address] [place] [address] Park, Nurse Hem Onc Scenery [address] [place], [place] [address] 07/24/2023 9:40 AM EST Office Visit Family Practice [facility] [address] [place] [address] Anthony Rico III, MD [address] [place] [address] 07/29/2023 8:30 AM EST Laboratory Laboratory [facility] [address] [place] [phone] Park, Lab Scenery [address] [place] [address] 07/29/2023 9:00 AM EST Nurse Only Hematology/Oncology [facility] [address] [place] [address] Park, Nurse Hem Onc Scenery [address] [place] [address] 07/31/2023 8:30 AM EST Laboratory Laboratory [facility] [address] [place] [address] Park, Lab Scenery [address] [place] [address] 07/31/2023 9:00 AM EST Nurse Only Hematology/Oncology Scenery [facility] [address] [place] [address] Park, Nurse Hem Onc Scenery [address] [place] [address] 08/05/2023 8:30 AM EST Laboratory Laboratory Scenery [facility] [address] [place] [address] Park, Lab Scenery [address] [place] [address] 08/05/2023 9:00 AM EST Nurse Only Hematology/Oncology Scenery [facility] [address] [place] [address] Park, Nurse Hem Onc Scenery [address] [place] [address] 08/07/2023 8:30 AM EST Laboratory Laboratory Scenery [facility] [address] [place] [address] Park, Lab Scenery [address] [place] [address] 08/07/2023 9:00 AM EST Nurse Only Hematology/Oncology Scenery [facility] [place] [address] [place] [address] Park, Nurse Hem Onc Scenery [address] [place] [address] 08/11/2023 8:30 AM EST Laboratory Laboratory Scenery [facility] [address] [place] [address] Park, Lab Scenery [address] [place] [address] 08/11/2023 9:00 AM EST Nurse Only Hematology/Oncology Scenery [facility] [address] [place] [address] Park, Nurse Hem Onc Scenery [address] [place] [address] 08/14/2023 8:30 AM EST Laboratory Laboratory Scenery [facility] [address] [place] [address] Park, Lab Scenery [address] [place] [address] 08/14/2023 9:00 AM EST Nurse Only Hematology/Oncology Scenery [facility] [address] [place] [address] Park, Nurse Hem Onc Scenery [address] [place] [address] 08/18/2023 8:30 AM EST Laboratory Laboratory Scenery [facility] [address] [place] [address] Park, Lab Scenery [address] [place] [address] 08/18/2023 9:00 AM EST Nurse Only Hematology/Oncology Scenery [facility] [place] [address] [place] [address] Park, Nurse Hem Onc Scenery [address] [place] [address] 08/21/2023 8:30 AM EST Laboratory Laboratory Scenery [facility] [address] [place] [address] Park, Lab Scenery [address] [place] [address] 08/21/2023 9:00 AM EST Nurse Only Hematology/Oncology Scenery [facility] [address] [place] [address] Park, Nurse Hem Onc Scenery [address] [place] [address] 08/25/2023 8:30 AM EST Laboratory Laboratory [facility] [place] [address] [place], [place] [phone] Garner, Lab [facility] [address] [place], [place] [address] 08/25/2023 9:00 AM EST Nurse Only Hematology/Oncology [facility] [place] [address] [place], [place] [address] Park, Nurse Hem Onc Scenery [address] [place], [place] [address] 08/29/2023 9:15 AM EST Office Visit Hematology/Oncology [facility] [place] [address] [place], [place] [address] [place] Killian MD [address] [place], [place] [address] 10/03/2023 10:30 AM EST Telemedicine Urology Zhou Yap [address] [place] [address] Kd Dickens MD [address] [place] [address] 7, Telemed [facility] Urology Ex Rm [address] [facility] [place] [address] 03/18/2024 11:00 AM EDT Office Visit Dermatology [facility] [place] [address] [place], [place] [address] Erica Rashid MD [address] [place], [place] [address] Health Maintenance Due Date Last Done Comments [...] this encounter Medical Devices Implanted Type Area Dinking Machine Operator Device Identifier Shelf Expiration Date Model / Serial / Lot Port Implant W/8f Poly Cath - [id number] Implanted:Qty : 1 on 11/23/2021 by Tae Porras, DO at OR [facility] Right: Chest CR BARD : PERIPHERAL VASCULAR [id number] 09/03/2022 [id number] / / [id number] Port Implant W/8f Poly Cath - [id number] Implanted:Qty : 1 on 12/26/2022 by Fabián Del Cid, DO at OR [facility] Right: Chest CR BARD : PERIPHERAL VASCULAR [id number] 04/03/2024 [id number] / / [id number] documented as of this encounter Advance Directives Documents on File Type Date Recorded Patient Natural Gas Treating Unit Operator Expl anation Power of Manager Business 06/06/2022 POWER OF A TTORNEY Latest Code [...] the patient have Health Care Power of Manager Business? No Full Code 03/12/2022 5:18 PM 03/15/2022 7:16 PM This o rder reflects the patients wishes and were consensually agreed upon. Question Answer Comments Discussion of Advance Directives occurred with: Patient Does the patient have a Living Will? No Does the patient have Health Care Power of Manager Business? No Full Code 12/04/2021 5:18 PM 01/22/2022 8:17 PM This o rder reflects the patients wishes and were consensually agreed upon. Question Answer Comments Discussion of Advance Directives occurred with: Patient Does the patient have a Living Will? No Does the patient have Health Care Power of Manager Business? No Care Teams Dental Equipment Mechanic Relationship Specialty Start Date End Date Anthony Rico III, MD [address] [place] [address] PCP - General 03/18/1996 documented as of this encounter
--- OUTSIDE RECORDS SUMMARY | 2023-07-24 14:23 | External Medical Summary | Summary of Care ---
Author Name Unknown Organization [facility] Address [address] [place] [address] Phone [phone] Care Team Providers Care Lead Electrician Name Role Phone Jacky THOMAS MD, Anthony Moctezuma Primary Care Provider [phone] Reason for Visit * Reason Onset Date Comments Precert In Process 07/04/2023 WERO forrester Encounter Details Date Type Department Care Team (Late st Contact Info) Description 07/04/2023 Telephone Hematology Oncology [facility] [address] [place] [address] Judith Frost MD [address] [place] [address] Precert In Process ( WERO Rondon) Allergies Active Allergy Reactions Criticality Noted Date Comments Bee Venom Low 10/07/2018 Other reaction(s): SWELLING Nitrofurantoin Monohyd Macro Other (Please comment) 02/14/2014 "Flu-like symptoms, Headache, Fever, Red dots on skin-on legs mainly" Happened during end of 10 day course. documented as of this encounter (statuses as of 07/07/2023) Medications Medication Sig Dispensed Refills Start Date [...] bedtime. 180 Tablet 1 06/23/2023 Active Nystatin 265211 UNIT/ML Mouth/Throat Suspension Swish and swallow 5 [...] as of this encounter (statuses as of 07/07/2023) Active Problems Problem Noted Date Diagnosed Date [...] as of this encounter (statuses as of 07/07/2023) Resolved Problems Problem Noted Date Diagnosed Date [...] as of this encounter (statuses as of 07/07/2023) Immunizations Name Administration Dates Next Due COVID-19 mRNA, LNP-s, No Pre serve, 2-Dose Series (ScanCafe) 06/19/2021,10/24/2020,10/03/2020 H1N1 2009 Influenza, IM 06/14/2009 Hepatitis [...] Cantrell OSA - 07/07/2023 8:31 AM EST [facility] Authorization Submission Submission Information: Medication: Cresemba 186mg Portal used: [facility] Insurance: [employer] Authorization #/Villalba: [id number] Negra Cantrell Medication Food And Beverage Service Manager P: [phone] F: [phone] 07/07/2023,8:31 AM * Telephone Encounter - Valentina Cash CPhT - 07/04/2023 12:25 PM EST New or re-auth: re auth Patient Abdias Osei needs a prior authorization for their cresemba through their [employer] insurance. ID: [id number] BIN:[id number] PCN:[id number] Phone: Target ship date is 12/6. Thank you very much, Valentina Cash CPhT [facility] documented in this encounter Plan of Treatment Upcoming Encounters Date Type Department Care Team (Late st Contact Info) Description 07/10/2023 8:30 AM EST Laboratory Laboratory [place] [address] [place] [phone] Park, Lab Scenery [address] [place] [address] 07/10/2023 9:00 AM EST Nurse Only Hematology/Oncology Scenery [place] [address] [place] [address] Park, Nurse Hem Onc Scenery [address] [place] [address] 07/10/2023 11:00 AM EST Office Visit Otolaryngology [facility] [address] [facility] [place] [address] Wendi Cummings MD 132 [facility] [place] [address] 07/14/2023 8:30 AM EST Laboratory Laboratory Scenery [place] [address] [place] [address] Dorothy, Lab Scenery [address] [facility] [place] [address] 07/14/2023 9:00 AM EST Nurse Only Hematology/Oncology Scenery [place] [address] [place] [address] Park, Nurse Hem Onc Scenery [address] [place] [address] 07/17/2023 8:30 AM EST Laboratory Laboratory [place] [address] [place] [address] Park, Lab Scenery [address] [place] [address] 07/17/2023 9:00 AM EST Nurse Only Hematology/Oncology Scenery [facility] [address] [place] [address] Park, Nurse Hem Onc Scenery [address] [place] [address] 07/21/2023 8:30 AM EST Laboratory Laboratory [facility] [address] [place] [address] Park, Lab Scenery [address] [place] [address] 07/21/2023 9:00 AM EST Nurse Only Hematology/Oncology Scenery [facility] [address] [place] [address] Park, Nurse Hem Onc Scenery [address] [place] [address] 07/24/2023 8:30 AM EST Laboratory Laboratory [facility] [address] [place] [address] Park, Lab Scenery [address] [place] [address] 07/24/2023 9:00 AM EST Nurse Only Hematology/Oncology [facility] [place] [address] [place] [address] Park, Nurse Hem Onc Scenery [address] [place] [address] 07/24/2023 9:40 AM EST Office Visit Family Practice [facility] [address] [place] [address] Jacky Anthony THOMAS MD [address] [place] [address] 07/29/2023 8:30 AM EST Laboratory Laboratory [facility] [address] [place] [address] Park, Lab Scenery [address] [place] [address] 07/29/2023 9:00 AM EST Nurse Only Hematology/Oncology Scenery [facility] [address] [place] [address] Park, Nurse Hem Onc Scenery [address] [place] [address] 07/31/2023 8:30 AM EST Laboratory Laboratory Scenery [facility] [address] [place] [address] Park, Lab Scenery [address] [place] [address] 07/31/2023 9:00 AM EST Nurse Only Hematology/Oncology Scenery [facility] [address] [place] [address] Park, Nurse Hem Onc Scenery [address] [place] [address] 08/05/2023 8:30 AM EST Laboratory Laboratory Scenery [facility] [address] [place] [address] Park, Lab Scenery [address] [place] [address] 08/05/2023 9:00 AM EST Nurse Only Hematology/Oncology Scenery [facility] [address] [place] [address] Park, Nurse Hem Onc Scenery [address] [place] [address] 08/07/2023 8:30 AM EST Laboratory Laboratory Scenery [facility] [address] [place] [address] Park, Lab Scenery [address] [place] [address] 08/07/2023 9:00 AM EST Nurse Only Hematology/Oncology Scenery [facility] [address] [place] [address] Park, Nurse Hem Onc Scenery [address] [place] [address] 08/11/2023 8:30 AM EST Laboratory Laboratory Scenery [facility] [address] [place] [address] Park, Lab Scenery [address] [place] [address] 08/11/2023 9:00 AM EST Nurse Only Hematology/Oncology Scenery [facility] [address] [place] [address] Park, Nurse Hem Onc Scenery [address] [place] [address] 08/14/2023 8:30 AM EST Laboratory Laboratory Scenery [facility] [address] [place] [address] Park, Lab Scenery [address] [place] [address] 08/14/2023 9:00 AM EST Nurse Only Hematology/Oncology Scenery [place] [address] [place] [address] Park, Nurse Hem Onc Scenery [address] [place] [address] 08/18/2023 8:30 AM EST Laboratory Laboratory Scenery [facility] [address] [place] [address] Park, Lab Scenery [address] [place] [address] 08/18/2023 9:00 AM EST Nurse Only Hematology/Oncology Scenery [facility] [address] [place] [address] Park, Nurse Hem Onc Scenery [address] [place] [address] 08/21/2023 8:30 AM EST Laboratory Laboratory Scenery [facility] [address] [place] [address] Park, Lab Scenery [address] [place] [address] 08/21/2023 9:00 AM EST Nurse Only Hematology/Oncology Scenery [facility] [address] [place] [address] Park, Nurse Hem Onc Scenery [address] [place], [place] [address] 08/25/2023 8:30 AM EST Laboratory Laboratory [facility] [address] [place] [address] Park, Lab Scenery [address] [place] [address] 08/25/2023 9:00 AM EST Nurse Only Hematology/Oncology [facility] [place] [address] [place] [address] Park, Nurse Hem Onc Scenery [address] [place] [address] 08/29/2023 9:15 AM EST Office Visit Hematology/Oncology [facility] [place] [address] [place], [place] [address] [place] Killian MD [address] [place] [address] 10/03/2023 10:30 AM EST Telemedicine Urology Zhou Yap [address] [place] [address] Kd Dickens MD [address] [place] [phone] 7, Telemed [facility] Urology Ex Rm [address] [place] [address] 03/18/2024 11:00 AM EDT Office Visit Dermatology State Eleuterio Romero 200 [facility] [place] [address] Erica Rashid MD [address] [facility] [place] [address] Health Maintenance Due Date Last Done Comments [...] this encounter Medical Devices Implanted Type Area Pharmacovigilance Safety Expert Device Identifier Shelf Expiration Date Model / Serial / Lot Port Implant W/8f Poly Cath - [id number] Implanted:Qty : 1 on 11/23/2021 by Tae Porras, DO at OR [facility] Right: Chest CR BARD : PERIPHERAL VASCULAR [id number] 09/03/2022 [id number] / / [id number] Port Implant W/8f Poly Cath - [id number] Implanted:Qty : 1 on 12/26/2022 by Fabián Del Cid, DO at OR [facility] Right: Chest CR BARD : PERIPHERAL VASCULAR [id number] 04/03/2024 [id number] / / [id number] documented as of this encounter Advance Directives Documents on File Type Date Recorded Patient Photo Lab Manager Expl anation Power of Dumpling Machine Operator 06/06/2022 POWER OF A TTORNEY Latest [...] the patient have Health Care Power of Dumpling Machine Operator? No Full Code 03/12/2022 5:18 PM 03/15/2022 7:16 PM This o rder reflects the patients wishes and were consensually agreed upon. Question Answer Comments Discussion of Advance Directives occurred with: Patient Does the patient have a Living Will? No Does the patient have Health Care Power of Dumpling Machine Operator? No Full Code 12/04/2021 5:18 PM 01/22/2022 8:17 PM This o rder reflects the patients wishes and were consensually agreed upon. Question Answer Comments Discussion of Advance Directives occurred with: Patient Does the patient have a Living Will? No Does the patient have Health Care Power of Dumpling Machine Operator? No Care Teams Lead Electrician Relationship Specialty Start Date End Date Anthony Rico III, MD [address] [facility] [place] [address] PCP - General 03/18/1996 documented as of this encounter
--- OUTSIDE RECORDS SUMMARY | 2023-07-24 14:23 | External Medical Summary | Summary of Care ---
Author Name Unknown Organization [facility] Address [address] [address] Phone [phone] Care Team Providers Care Gear Design Engineer Name Role Phone Jacky THOMAS MD, Anthony Moctezuma Primary Care Provider [phone] Encounter Details Date Type Department Care Team (Late st Contact Info) Description 07/04/2023 Telephone Urology Zhou Yap [address] [place] [phone] Kd Dickens MD [address] [place] [phone] Allergies Active Allergy Reactions Criticality Noted Date Comments Bee Venom Low 10/07/2018 Other reaction(s): SWELLING Nitrofurantoin Monohyd Macro Other (Please comment) 02/14/2014 "Flu-like symptoms, Headache, Fever, Red dots on skin-on legs mainly" Happened during end of 10 day course. documented as of this encounter (statuses as of 07/04/2023) Medications Medication Sig Dispensed Refills Start Date [...] bedtime. 180 Tablet 1 06/23/2023 Active Nystatin 214823 UNIT/ML Mouth/Throat Suspension Swish and swallow 5 [...] as of this encounter (statuses as of 07/04/2023) Active Problems Problem Noted Date Diagnosed Date [...] as of this encounter (statuses as of 07/04/2023) Resolved Problems Problem Noted Date Diagnosed Date [...] as of this encounter (statuses as of 07/04/2023) Immunizations Name Administration Dates Next Due COVID-19 mRNA, LNP-s, No Pre serve, 2-Dose Series ([employer]) 06/19/2021,10/24/2020,10/03/2020 H1N1 2009 Influenza, IM 06/14/2009 [...] Care Team (Late st Contact Info) Description 07/07/2023 8:30 AM EST Laboratory Laboratory [facility] [address] [place] [phone] Park, Lab Scenery [address] [facility] [place], [place] [address] 07/07/2023 9:00 AM EST Nurse Only Hematology/Oncology [facility] [place] [address] [place], [place] [address] Park, Nurse Hem Onc Scenery [address] [place], [place] [address] 07/10/2023 8:30 AM EST Laboratory Laboratory [facility] [address] [place], [place] [address] Park, Lab Scenery [address] [facility] [place] [address] 07/10/2023 9:00 AM EST Nurse Only Hematology/Oncology [facility] [address] [place], [place] [address] Park, Nurse Hem Onc Scenery [address] [place] [address] 07/10/2023 11:00 AM EST Office Visit Otolaryngology [facility] [address] [place] [address] Wendi Cummings MD [address] [place] [address] 07/14/2023 8:30 AM EST Laboratory Laboratory Scenery [facility] [address] [place] [address] Park, Lab Scenery [address] [place] [address] 07/14/2023 9:00 AM EST Nurse Only Hematology/Oncology Scenery [facility] [address] [place] [address] Park, Nurse Hem Onc Scenery [address] [place], [place] [address] 07/17/2023 8:30 AM EST Laboratory Laboratory Scenery [facility] [address] [place] [phone] Park, Lab Scenery [address] [place] [address] 07/17/2023 9:00 AM EST Nurse Only Hematology/Oncology Scenery [facility] [address] [place] [address] Park, Nurse Hem Onc Scenery [address] [place] [address] 07/21/2023 8:30 AM EST Laboratory Laboratory Scenery [facility] [address] [place] [phone] Park, Lab Scenery [address] [place] [address] 07/21/2023 9:00 AM EST Nurse Only Hematology/Oncology Scenery [facility] [address] [place] [address] Park, Nurse Hem Onc Scenery [address] [place] [address] 07/24/2023 8:30 AM EST Laboratory Laboratory [facility] [address] [place] [address] Park, Lab Scenery [address] [place] [address] 07/24/2023 9:00 AM EST Nurse Only Hematology/Oncology [facility] [address] [place] [address] Park, Nurse Hem Onc Scenery [address] [place] [address] 07/24/2023 9:40 AM EST Office Visit Family Practice [facility] [address] [place] [address] Jacky IIIAnthony MD [address] [place] [address] 07/29/2023 8:30 AM EST Laboratory Laboratory [facility] [address] [place] [phone] Dorothy, Lab Scenery [address] [place] [address] 07/29/2023 9:00 AM EST Nurse Only Hematology/Oncology [facility] [address] [place] [address] Park, Nurse Hem Onc Scenery [address] [place] [address] 07/31/2023 8:30 AM EST Laboratory Laboratory [facility] [address] [place] [address] Park, Lab Scenery [address] [place] [address] 07/31/2023 9:00 AM EST Nurse Only Hematology/Oncology [facility] [address] [place] [address] Park, Nurse Hem Onc Scenery [address] [place] [address] 08/05/2023 8:30 AM EST Laboratory Laboratory Scenery [facility] [address] [place] [address] Park, Lab Scenery [address] [place] [address] 08/05/2023 9:00 AM EST Nurse Only Hematology/Oncology Scenery [facility] [address] [place] [address] Park, Nurse Hem Onc Scenery [address] [place] [address] 08/07/2023 8:30 AM EST Laboratory Laboratory Scenery [facility] [address] [place] [address] Park, Lab Scenery [address] [place] [address] 08/07/2023 9:00 AM EST Nurse Only Hematology/Oncology Scenery [facility] [address] [place] [address] Park, Nurse Hem Onc Scenery [address] [place] [address] 08/11/2023 8:30 AM EST Laboratory Laboratory Scenery [facility] [address] [place] [address] Park, Lab Scenery [address] [place] [address] 08/11/2023 9:00 AM EST Nurse Only Hematology/Oncology Scenery [facility] [address] [place] [address] Park, Nurse Hem Onc Scenery [address] [place] [address] 08/14/2023 8:30 AM EST Laboratory Laboratory Scenery [facility] [address] [place] [address] Park, Lab Scenery [address] [place] [address] 08/14/2023 9:00 AM EST Nurse Only Hematology/Oncology Scenery [facility] [address] [place] [address] Park, Nurse Hem Onc Scenery [address] [place] [address] 08/18/2023 8:30 AM EST Laboratory Laboratory Scenery [facility] [address] [place] [address] Park, Lab Scenery [address] [place] [address] 08/18/2023 9:00 AM EST Nurse Only Hematology/Oncology Scenery [facility] [address] [place] [address] Park, Nurse Hem Onc Scenery [address] [place] [address] 08/21/2023 8:30 AM EST Laboratory Laboratory Scenery [facility] [address] [place] [address] Park, Lab Scenery [address] [place] [address] 08/21/2023 9:00 AM EST Nurse Only Hematology/Oncology Scenery [facility] [address] [place] [address] Park, Nurse Hem Onc Scenery [address] [place] [address] 08/25/2023 8:30 AM EST Laboratory Laboratory Scenery [facility] [address] [place] [address] Park, Lab Scenery [address] [facility] [address] [place], [place] [address] 08/25/2023 9:00 AM EST Nurse Only Hematology/Oncology [facility] [place] [address] [place], [place] [address] Park, Nurse Hem Onc [facility] [address] [facility] [address] [place], [place] [address] 08/29/2023 9:15 AM EST Office Visit Hematology/Oncology [facility] [place] [address] [place], [place] [address] [place] Killian MD [address] [facility] [address] [place], [place] [address] 10/03/2023 10:30 AM EST Telemedicine Urology Zhou Yap [address] [place] [address] Kd Dickens MD [address] [place] [address] 7, Telemed [facility] Urology Ex Rm [address] [place] [address] 03/18/2024 11:00 AM EDT Office Visit Dermatology [facility] [address] [place], [place] [address] Erica Rashid MD [address] [place], [place] [address] Health Maintenance Due Date Last Done Comments [...] encounter Medical Devices Implanted Type Area Customer Service Sales Associate Device Identifier Shelf Expiration Date Model / Serial / Lot Port Implant W/8f Poly Cath - [id number] Implanted:Qty : 1 on 11/23/2021 by Tae Porras, at OR [facility] Right: Chest CR BARD : PERIPHERAL VASCULAR [id number] 09/03/2022 [id number] / / [id number] Port Implant W/8f Poly Cath - [id number] Implanted:Qty : 1 on 12/26/2022 by Fabián Del Cid DO at OR [facility] Right: Chest CR BARD : PERIPHERAL VASCULAR [id number] 04/03/2024 [id number] / / [id number] documented as of this encounter Advance Directives Documents on File Type Date Recorded Patient Certified Forklift Operator Expl anation Power of Transaction Processor 06/06/2022 POWER OF A TTORNEY Latest Code [...] the patient have Health Care Power of Transaction Processor? No Full Code 03/12/2022 5:18 PM 03/15/2022 7:16 PM This o rder reflects the patients wishes and were consensually agreed upon. Question Answer Comments Discussion of Advance Directives occurred with: Patient Does the patient have a Living Will? No Does the patient have Health Care Power of Transaction Processor? No Full Code 12/04/2021 5:18 PM 01/22/2022 8:17 PM This o rder reflects the patients wishes and were consensually agreed upon. Question Answer Comments Discussion of Advance Directives occurred with: Patient Does the patient have a Living Will? No Does the patient have Health Care Power of Transaction Processor? No Care Teams Gear Design Engineer Relationship Specialty Start Date End Date Anthony Rico III, MD [address] [place] [address] PCP - General 03/18/1996 documented as of this encounter
--- OUTSIDE RECORDS SUMMARY | 2023-07-24 14:23 | External Medical Summary | Summary of Care ---
Author Name Unknown Organization [facility] Address [address] [facility] [address] Phone [phone] Care Team Providers Care Steel Turner Name Role Phone Jacky THOMAS MD, Anthony Moctezuma Primary Care Provider [phone] Reason for Visit * Reason Comments Outpatient Testing Encounter Details Date Type Department Care Team (Late st Contact Info) Description 07/10/2023 8:30 AM EST Laboratory Laboratory [facility] [place] [address] [place] [address] [facility] [address] [place] [address] AML (acute myeloid leukemia) ([facility]) Allergies Active Allergy Reactions Criticality Noted [...] bedtime. 180 Tablet 1 06/23/2023 Active Nystatin 789964 UNIT/ML Mouth/Throat Suspension Swish and swallow 5 [...] below 70 01/01/2012 Anticoagulation management encounter 09/05/2010 detention current use of anticoagulant therapy 0 09/05/2010 [...] mRNA, LNP-s, No Pre serve, 2-Dose Series ([employer]) 06/19/2021,10/24/2020,10/03/2020 H1N1 2009 Influenza, IM 06/14/2009 Hepatitis [...] 07/10/2023 9:00 AM EST Nurse Only Hematology/Oncology [facility] [address] [place], [place] [address] Park, Nurse Hem Onc [facility] [address] [place], [place] [address] Arrived 07/14/2023 8:30 AM EST Laboratory Laboratory [facility] [place] [address] [place] [address] Dorothy, Lab [facility] [address] [facility] [place], [place] [address] 07/14/2023 9:00 AM EST Nurse Only Hematology/Oncology [facility] [address] [place] [address] Park, Nurse Hem Onc Scenery [address] [place], [place] [address] 07/15/2023 11:00 AM EST Office Visit Family Practice [facility] [place] [address] [place], [place] [address] Maria Teresa Nelson, [address] [place] [address] 07/17/2023 8:30 AM EST Laboratory Laboratory Scenery [facility] [address] [place], [place] [address] Park, Lab Scenery [address] [place] [address] 07/17/2023 9:00 AM EST Nurse Only Hematology/Oncology Scenery [facility] [address] [place] [address] Park, Nurse Hem Onc Scenery [address] [place], [place] [address] 07/21/2023 8:30 AM EST Laboratory Laboratory [facility] [address] [place], [place] [phone] Dorothy, Lab Scenery [address] [place], [place] [address] 07/21/2023 9:00 AM EST Nurse Only Hematology/Oncology [facility] [address] [place], [place] [address] Park, Nurse Hem Onc Scenery [address] [place], [place] [address] 07/22/2023 1:15 PM EST Office Visit Otolaryngology [facility] [address] [facility] [place] [address] Wendi Cummings MD [address] [place] [address] 07/24/2023 8:30 AM EST Laboratory Laboratory [facility] [address] [place], [place] [phone] Park, Lab Scenery [address] [place], [place] [address] 07/24/2023 9:00 AM EST Nurse Only Hematology/Oncology Scenery [facility] [address] [place] [address] Park, Nurse Hem Onc Scenery [address] [place] [address] 07/24/2023 9:40 AM EST Office Visit Family Practice [facility] [address] [place] [address] Jacky III, Anthony Moctezuma MD [address] [place] [address] 07/29/2023 8:30 AM EST Laboratory Laboratory [facility] [address] [place] [address] Park, Lab Scenery [address] [place] [address] 07/29/2023 9:00 AM EST Nurse Only Hematology/Oncology [facility] [address] [place] [address] Park, Nurse Hem Onc Scenery [address] [place] [address] 07/31/2023 8:30 AM EST Laboratory Laboratory [facility] [address] [place] [address] Park, Lab Scenery [address] [place] [address] 07/31/2023 9:00 AM EST Nurse Only Hematology/Oncology [facility] [address] [place] [address] Park, Nurse Hem Onc Scenery [address] [place] [address] 08/05/2023 8:30 AM EST Laboratory Laboratory [facility] [address] [place] [address] Park, Lab Scenery [address] [place] [address] 08/05/2023 9:00 AM EST Nurse Only Hematology/Oncology Scenery [facility] [address] [place] [address] Park, Nurse Hem Onc Scenery [address] [place] [address] 08/07/2023 8:30 AM EST Laboratory Laboratory Scenery [facility] [address] [place] [address] Park, Lab Scenery [address] [place] [address] 08/07/2023 9:00 AM EST Nurse Only Hematology/Oncology Scenery [facility] [address] [place] [address] Park, Nurse Hem Onc Scenery [address] [place] [address] 08/11/2023 8:30 AM EST Laboratory Laboratory Scenery [facility] [address] [place] [address] Park, Lab Scenery [address] [place] [address] 08/11/2023 9:00 AM EST Nurse Only Hematology/Oncology Scenery [facility] [address] [place] [address] Park, Nurse Hem Onc Scenery [address] [place] [address] 08/14/2023 8:30 AM EST Laboratory Laboratory Scenery [facility] [address] [place] [address] Park, Lab Scenery [address] [place] [address] 08/14/2023 9:00 AM EST Nurse Only Hematology/Oncology Scenery [facility] [address] [place] [address] Park, Nurse Hem Onc Scenery [address] [place] [address] 08/18/2023 8:30 AM EST Laboratory Laboratory Scenery [facility] [address] [place] [address] Park, Lab Scenery [address] [place] [address] 08/18/2023 9:00 AM EST Nurse Only Hematology/Oncology Scenery [facility] [address] [place] [address] Park, Nurse Hem Onc Scenery [address] [place] [address] 08/21/2023 8:30 AM EST Laboratory Laboratory Scenery [facility] [address] [place] [address] Park, Lab Scenery [address] [place] [address] 08/21/2023 9:00 AM EST Nurse Only Hematology/Oncology Scenery [facility] [address] [place] [address] Park, Nurse Hem Onc Scenery [address] [place] [address] 08/25/2023 8:30 AM EST Laboratory Laboratory Scenery [facility] [address] [place] [address] Park, Lab Scenery [address] [place] [address] 08/25/2023 9:00 AM EST Nurse Only Hematology/Oncology Scenery [facility] [address] [place] [address] Park, Nurse Hem Onc Scenery [address] [place] [address] 08/29/2023 9:15 AM EST Office Visit Hematology/Oncology Scenery [facility] [address] [place] [address] [place] Killian MD [address] [facility] [place] [address] 10/03/2023 10:30 AM EST Telemedicine Urology Zhou Yap [address] [place] [address] Kd Dickens MD [address] [place] [address] [place] [address] 7, Telemed [facility] Urology Ex Rm [address] [place] [address] 03/18/2024 11:00 AM EDT Office Visit Dermatology [facility] [place] [address] [facility] [place] [address] Erica Rashid MD [address] [facility] [place] [address] Pending Results Name Type Priority Associated Diagnoses Date /Time CBC WITH WBC DIFFERENTIAL Lab STAT AML (acute myeloid leukemia) ([facility]) 07/10/2023 8:40 AM EST CBC Lab STAT AML (acute myeloid leukemia) ([facility]) 07/10/2023 8:40 AM EST DIFFERENTIAL, AUTOMATED Lab STAT AML (acute myeloid leukemia) ([facility]) 07/10/2023 8:40 AM EST Health Maintenance Due Date [...] this encounter Medical Devices Implanted Type Area Pathological Technician Device Identifier Shelf Expiration Date Model / Serial / Lot Port Implant W/8f Poly Cath - [id number] Implanted:Qty : 1 on 11/23/2021 by Tae Porras DO at OR [facility] Right: Chest CR BARD : PERIPHERAL VASCULAR [id number] 09/03/2022 [id number] / / [id number] Port Implant W/8f Poly Cath - [id number] Implanted:Qty : 1 on 12/26/2022 by Massak, Fabáin, DO at OR [facility] Right: Chest CR BARD : PERIPHERAL VASCULAR [id number] 04/03/2024 [id number] / / [id number] documented as of this encounter Visit Diagnoses Diagnosis AML (acute myeloid leukemia) (HCC) Acute myeloid leukemia, without mention of having achieved remission documented in this encounter Advance Directives Documents on File Type Date Recorded Patient Yeast Culture Developer Expl anation Power of Architect Intern 06/06/2022 POWER OF A TTORNEY Latest Code [...] the patient have Health Care Power of Architect Intern? No Full Code 03/12/2022 5:18 PM 03/15/2022 7:16 PM This o rder reflects the patients wishes and were consensually agreed upon. Question Answer Comments Discussion of Advance Directives occurred with: Patient Does the patient have a Living Will? No Does the patient have Health Care Power of Architect Intern? No Full Code 12/04/2021 5:18 PM 01/22/2022 8:17 PM This o rder reflects the patients wishes and were consensually agreed upon. Question Answer Comments Discussion of Advance Directives occurred with: Patient Does the patient have a Living Will? No Does the patient have Health Care Power of Architect Intern? No Care Teams Steel Turner Relationship Specialty Start Date End Date Anthony Rico III, MD [facility] [place] [address] PCP - General 03/18/1996 documented as of this encounter
--- OUTSIDE RECORDS SUMMARY | 2023-07-24 14:23 | External Medical Summary | Summary of Care ---
Author Name Unknown Organization [facility] Address [address] [place] [address] Phone [phone] Care Team Providers Care Administrator Pesticide Name Role Phone Jacky THOMAS MD, Anthony Moctezuma Primary Care Provider [phone] Reason for Visit * Reason Onset Date Comments Pre Cert/Prior Auth 07/04/2023 Encounter Details Date Type Department Care Team (Late st Contact Info) Description 07/04/2023 Telephone Hematology Oncology [facility] [address] [place] [address] Judith Frost MD [address] [place] [address] Pre Cert/Prior Auth Allergies Active Allergy Reactions Criticality Noted Date [...] bedtime. 180 Tablet 1 06/23/2023 Active Nystatin 108958 UNIT/ML Mouth/Throat Suspension Swish and swallow 5 [...] 70 01/01/2012 Anticoagulation management encounter 09/05/2010 intermediate card tender current use of anticoagulant therapy 0 09/05/2010 [...] mRNA, LNP-s, No Pre serve, 2-Dose Series ([email or web address]) 06/19/2021,10/24/2020,10/03/2020 H1N1 2009 Influenza, IM 06/14/2009 Hepatitis [...] encounter Miscellaneous Notes * Telephone Encounter - Valentina Cash CPhT - 07/04/2023 12:25 PM EST New or re-auth: re auth Patient Abdias Osei needs a prior authorization for their cresemba through their [facility] insurance. ID: [id number] BIN:[id number] PCN:[id number] Phone: Target ship date is 07/09. Thank you very much, Valentina Cash CPhT [facility] documented in this encounter Plan of Treatment Upcoming Encounters Date Type Department Care Team (Late st Contact Info) Description 07/07/2023 8:30 AM EST Laboratory Laboratory State Kunal Romero [address] [place] [phone] Sanju De La Cruz [address] [place] [address] [address] 07/07/2023 9:00 AM EST Nurse Only Hematology/Oncology [facility] State Kunal De La Cruz [address] [place] [address] [place] [address] Dorothy, Nurse Hem Onc [facility] [address] [place] [address] 07/10/2023 8:30 AM EST Laboratory Laboratory [facility] [address] [place] [address] Park, Lab Scenery [address] [place] [address] 07/10/2023 9:00 AM EST Nurse Only Hematology/Oncology Scenery [facility] [address] [place], [place] [address] Park, Nurse Hem Onc Scenery [address] [place], [place] [address] 07/10/2023 11:00 AM EST Office Visit Otolaryngology [facility] [address] [place] [address] Wendi Cummings MD [address] [place] [address] 07/14/2023 8:30 AM EST Laboratory Laboratory [facility] [address] [place], [place] [phone] Holt, Lab Scenery [address] [place] [address] 07/14/2023 9:00 AM EST Nurse Only Hematology/Oncology Scenery [facility] [address] [place] [address] Park, Nurse Hem Onc Scenery [address] [place] [address] 07/17/2023 8:30 AM EST Laboratory Laboratory Scenery [facility] [address] [place] [address] Park, Lab Scenery [address] [place] [address] 07/17/2023 9:00 AM EST Nurse Only Hematology/Oncology Scenery [place], [place] [address] [place] [address] Park, Nurse Hem Onc Scenery [address] [place] [address] 07/21/2023 8:30 AM EST Laboratory Laboratory [facility] [address] [place] [address] Park, Lab Scenery [address] [place] [address] 07/21/2023 9:00 AM EST Nurse Only Hematology/Oncology Scenery [facility] [address] [place] [address] Park, Nurse Hem Onc Scenery [address] [place] [address] 07/24/2023 8:30 AM EST Laboratory Laboratory [facility] [address] [place] [address] Park, Lab Scenery [address] [place] [address] 07/24/2023 9:00 AM EST Nurse Only Hematology/Oncology [facility] [address] [place] [address] Park, Nurse Hem Onc Scenery [address] [place] [address] 07/24/2023 9:40 AM EST Office Visit Family Practice [facility] [address] [place] [address] Jacky III, Anthony Moctezuma MD [address] [place] [address] 07/29/2023 8:30 AM EST Laboratory Laboratory [facility] [address] [place] [address] Park, Lab Scenery [address] [place] [address] 07/29/2023 9:00 AM EST Nurse Only Hematology/Oncology Scenery [facility] [address] [place] [address] Park, Nurse Hem Onc Scenery [address] [place] [address] 07/31/2023 8:30 AM EST Laboratory Laboratory [facility]ery [place] [address] [place] [address] Park, Lab Scenery [address] [place] [address] 07/31/2023 9:00 AM EST Nurse Only Hematology/Oncology Scenery [facility] [address] [place] [address] Park, Nurse Hem Onc Scenery [address] [place] [address] 08/05/2023 8:30 AM EST Laboratory Laboratory Scenery [facility] [address] [place] [address] Park, Lab Scenery [address] [place] [address] 08/05/2023 9:00 AM EST Nurse Only Hematology/Oncology [facility]ery [place] [address] [place] [address] Park, Nurse Hem Onc Scenery [address] [place] [address] 08/07/2023 8:30 AM EST Laboratory Laboratory [facility]ery [place] [address] [place] [address] Park, Lab Scenery [address] [place] [address] 08/07/2023 9:00 AM EST Nurse Only Hematology/Oncology Scenery [facility] [address] [place] [address] Park, Nurse Hem Onc Scenery [address] [place] [address] 08/11/2023 8:30 AM EST Laboratory Laboratory Scenery [facility] [address] [place] [address] Park, Lab Scenery [address] [place] [address] 08/11/2023 9:00 AM EST Nurse Only Hematology/Oncology Scenery [facility] [address] [place] [address] Park, Nurse Hem Onc Scenery [address] [place] [address] 08/14/2023 8:30 AM EST Laboratory Laboratory Scenery [facility] [address] [place] [address] Park, Lab Scenery [address] [place] [address] 08/14/2023 9:00 AM EST Nurse Only Hematology/Oncology Scenery [facility] [address] [place] [address] Park, Nurse Hem Onc Scenery [address] [place] [address] 08/18/2023 8:30 AM EST Laboratory Laboratory Scenery [facility] [address] [place] [address] Park, Lab Scenery [address] [place] [address] 08/18/2023 9:00 AM EST Nurse Only Hematology/Oncology Scenery [facility] [address] [place] [address] Park, Nurse Hem Onc Scenery [address] [place] [address] 08/21/2023 8:30 AM EST Laboratory Laboratory Scenery [facility] [address] [place] [address] Park, Lab Scenery [address] [place] [address] 08/21/2023 9:00 AM EST Nurse Only Hematology/Oncology [facility] [address] [place] [address] Park, Nurse Hem Onc Scenery [address] [place], [place] [address] 08/25/2023 8:30 AM EST Laboratory Laboratory [facility] [address] [place] [address] Park, Lab Scenery [address] [facility] [place] [address] 08/25/2023 9:00 AM EST Nurse Only Hematology/Oncology [facility]enery [place] [address] [place] [address] Park, Nurse Hem Onc Scenery [address] [place] [address] 08/29/2023 9:15 AM EST Office Visit Hematology/Oncology [facility] [place] [address] [place] [address] Berlin Killian MD [address] [place] [address] 10/03/2023 10:30 AM EST Telemedicine Urology Zhou Yap [address] [place] [address] Kd Dickens MD [address] [place] [address] 7, Telemed [facility] Urology Ex Rm [address] [facility] [place] [address] 03/18/2024 11:00 AM EDT Office Visit Dermatology [place] Kunal Romero [address] [place] [address] Erica Rashid MD [address] [place] [address] Health Maintenance Due Date Last Done Comments [...] this encounter Medical Devices Implanted Type Area Supervisor Paint Roller Covers Device Identifier Shelf Expiration Date Model / Serial / Lot Port Implant W/8f Poly Cath - [id number] Implanted:Qty : 1 on 11/23/2021 by Tae Porras, DO at OR [facility] Right: Chest CR BARD : PERIPHERAL VASCULAR [id number] 09/03/2022 [id number] / / [id number] Port Implant W/8f Poly Cath - [id number] Implanted:Qty : 1 on 12/26/2022 by Fabián Del Cid, DO at OR [facility] Right: Chest CR BARD : PERIPHERAL VASCULAR [id number] 04/03/2024 [id number] / / [id number] documented as of this encounter Advance Directives Documents on File Type Date Recorded 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 No Full Code 03/12/2022 5:18 PM 03/15/2022 7:16 PM This o rder reflects the patients wishes and were consensually agreed upon. Question Answer Comments Discussion of Advance Directives occurred with: Patient Does the patient have a Living Will? No Does the patient have Health Care Power of Telegraph Installer? No Full Code 12/04/2021 5:18 PM 01/22/2022 8:17 PM This o rder reflects the patients wishes and were consensually agreed upon. Question Answer Comments Discussion of Advance Directives occurred with: Patient Does the patient have a Living Will? No Does the patient have Health Care Power of Telegraph Installer? No Care Teams Administrator Pesticide Relationship Specialty Start Date End Date Anthony Rico III, MD [address] [facility] [place] [address] PCP - General 03/18/1996 documented as of this encounter
--- OUTSIDE RECORDS SUMMARY | 2023-07-24 14:23 | External Medical Summary ---
Author Name Unknown Address Unknown Organization K09[facility] [place] [address] Laboratory Report Ordering Provider Test Date Status FIORDALIZA MAX 07/10/2023 08:40:28 Final Observation Date Value Abnormality Reference (Units ) Status WBC, Total 07/10/2023 08:40:28 0.28 Below lower panic limits 4.00-10.80 (K/uL) Final RBC 07/10/2023 08:40:28 3.08 4.50-5.25 (M/uL) Final Hemoglobin 07/10/2023 08:40:28 9.0 Below low normal 14.0-16.8 (g/dL) Final HCT 07/10/2023 08:40:28 27.8 Below low normal 40.0-48.4 (%) Final MCV 07/10/2023 08:40:28 90.3 82.0-99.5 (fL) Final MCH 07/10/2023 08:40:28 29.2 27.0-34.0 (pg) Final MCHC 07/10/2023 08:40:28 32.4 32.0-36.0 (g/dL) Final RDW 07/10/2023 08:40:28 13.7 11.5-15.5 (%) Final Platelets 07/10/2023 08:40:28 <10 Below lower panic limits 140-400 (K/uL) Final MPV 07/10/2023 08:40:28 9.9 6.6-11.1 (fL) Final Performing Location [facility] [place] [address]
--- OUTSIDE RECORDS SUMMARY | 2023-07-24 14:24 | External Medical Summary ---
Author Name Unknown Address Unknown Organization K01:[facility] - [address] [place] [address] Laboratory Report Ordering Provider Test Date Status SUKH MARIEE 06/25/2023 11:25:37 Final Observation Date Value Abnormality Reference (Units ) Status Bacteria identified in Specimen by Culture 06/25/2023 11:25:37 No fungus isolated Final Fungal Smear 06/25/2023 11:25:37 No yeast or hyphae seen. Final Test: Culture, Fungus, Non-D erm
Specimen Source: Tongue
Specimen Type: Swab
Specimen Date: 06/25/2023 11:25 AM
Result Date: 07/02/2023 7:22 AM
Result Status: Final result
Resulting Lab: [facility]
[address]
[place] [id number]

CULTURE

No fungus isolated

STAIN

No yeast or hyphae seen.

null Performing Location [facility] - [address] [facility] [address]
[2023-07-24 14:32] LABS: Uric Acid 3.4 mg/dl (2.6-7.2)
[2023-07-24 15:42] LABS: Lyme Ab IgG w/WB Rflx Negative (Negative); Lyme Ab IgM w/WB Rflx Negative (Negative)
--- NOTE | 2023-07-24 15:49 | Pharmacy Report ---
Pharmacy PK ABX Note - Date of Service July 24, 2023 - Assessment and Plan Assessment 68 year old M receiving meropenem and vancomycin for treatment of febrile neutropenia. 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 Thank you. Pharmacy has transitioned to AUC monitoring for vancomycin. AUC/DANIEL is the preferred PK/PD target and is associated with decreased risk of nephrotoxicity compared to traditional trough targets.
[2023-07-24] MEDS: INSULIN ASPART PER UNIT CHARGE SC SCH ×2 (17:28→20:13)
[2023-07-24] MEDS ORDERED: MEROPENEM 500 MG in SYRINGE 0 ML IV SCH (20:00)
[2023-07-24] MEDS: ACETAMINOPHEN 325 MG TAB PO PRN (20:08)
[2023-07-24] MEDS: ACYCLOVIR 400 MG TAB PO SCH (20:11)
[2023-07-24] MEDS: FINASTERIDE 5 MG TAB PO SCH (20:11)
[2023-07-24] MEDS: NYSTATIN SUSP 500,000 U/5 ML UDC PO SCH (20:11)
[2023-07-24] MEDS: TAMSULOSIN HCL 0.4 MG CAP PO SCH (20:11)
[2023-07-24] MEDS: CHLORHEXIDINE GLUCONATE 0.12% 480 ML MT SCH (20:12)
[2023-07-24] MEDS: VANCOMYCIN HCL 1,000 MG in SODIUM CHLORIDE 0.9% 250 ML IV SCH (20:47)
[2023-07-24] MEDS: MEROPENEM 500 MG in SYRINGE 0 ML IV SCH (20:48)
--- OUTSIDE RECORDS SUMMARY | 2023-07-24 22:07 | External Medical Summary | Summary of Care ---
Author Name Unknown Organization [facility] Address [address] [facility] [place] [address] Phone [phone] Care Team Providers Care Interior Decorator Name Role Phone Jacky THOMAS MD, Anthony Moctezuma Primary Care Provider [phone] Encounter Details Date Type Department Care Team (Late st Contact Info) Description 07/24/2023 9:00 AM EST Nurse Only Hematology/Oncology Scenery [place] [address] [place] [address] Park, Nurse Hem Onc Scenery [address] [place] [address] Arrived Allergies Active Allergy Reactions Criticality Noted [...] (Periogard) 15 mL. 0 07/08/2023 Active Nystatin 521864 UNIT/ML Mouth/Throat Suspension Swish and swallow 5 [...] below 70 01/01/2012 Anticoagulation management encounter 09/05/2010 manager long term care current use of anticoagulant therapy 0 09/05/2010 [...] mRNA, LNP-s, No Pre serve, 2-Dose Series (AppCard) 06/19/2021,10/24/2020,10/03/2020 H1N1 2009 Influenza, IM 06/14/2009 Hepatitis [...] Split, I IV3, With Preserve, Inj 04/13/2015,04/06/2014,04/24/2013,04/10,05/28/2011,05/10/2010,05/04/2009 ,05/12/2008,05/18/2007,06/11/2006,110 08/2004,08/13/2004,06/01/2003, 9,05/17/1998,05/31/1997 Seasonal Influenza, [place]riv[place] t, High [...] Progress Notes * Michael Sigala RN - 07/24/2023 9:24 AM EST Pt here for nurse visit to review labs. Upon speaking with the patient, he states that he hasn't been feeling well and progressively has been feeling worse. Pt with c/o 7/10 pain in his mouth, hasn'tbeen eating well per his . Pt stating that he has been experiencing intermittent shortness of breath. Discussed with HIRAM Prescott and MICHAEL Aranda --> ER for eval at [facility]. Called [facility] ER and spoke to HIRAM Villarreal Charge, report given. Pt agreeable to ER plan. Hgb 7.1, PLT <10, WBC <0.20 Manual BP 78/48, HR 80, SP02 95% This RN auscultated patient lungs, clear throughout. documented in this encounter Plan of Treatment Upcoming Encounters Date Type Department Care Team (Late st Contact Info) Description 07/29/2023 8:30 AM EST Laboratory Laboratory [facility] [place] [address] [place], [place] [phone] Park, Lab Scenery [address] [facility] [place], [place] [address] 07/29/2023 9:00 AM EST Nurse Only Hematology/Oncology [facility] [place] [address] [place] [address] Park, Nurse Hem Onc Scenery [address] [place], [place] [address] 07/29/2023 9:15 AM EST Immunization/Injection Hematology/Oncology Treatment, [place] [address] [facility] [place], [place] [address] Nurse, Med 4 [address] [place], [place] [address] 07/31/2023 8:30 AM EST Laboratory Laboratory [facility] [place] [address] [place], [place] [phone] Dorothy, Lab Scenery [address] [facility] [place], [place] [address] 07/31/2023 9:00 AM EST Nurse Only Hematology/Oncology [facility] [place] [address] [place], [place] [address] Park, Nurse Hem Onc Scenery [address] [place] [address] 07/31/2023 9:15 AM EST Immunization/Injection Hematology/Oncology Treatment, [place] [address] [place] [address] Nurse, Med 4 [address] [place], [place] [address] 08/05/2023 8:30 AM EST Laboratory Laboratory [facility] [place] [address] [place] [phone] Park, Lab Scenery [address] [place] [address] 08/05/2023 9:00 AM EST Nurse Only Hematology/Oncology [facility] [address] [place] [address] Park, Nurse Hem Onc Scenery [address] [place] [address] 08/07/2023 8:30 AM EST Laboratory Laboratory Scenery [facility] [address] [place] [address] Park, Lab Scenery [address] [place] [address] 08/07/2023 9:00 AM EST Nurse Only Hematology/Oncology [facility]en[facility] [address] [place] [address] Park, Nurse Hem Onc Scenery [address] [place] [address] 08/11/2023 8:30 AM EST Laboratory Laboratory [facility] [address] [place] [address] Park, Lab Scenery [address] [place] [address] 08/11/2023 9:00 AM EST Nurse Only Hematology/Oncology [facility]en[facility] [address] [place] [address] Park, Nurse Hem Onc Scenery [address] [place] [address] 08/14/2023 8:30 AM EST Laboratory Laboratory Scen[facility] [address] [place] [address] Park, Lab Scenery [address] [place] [address] 08/14/2023 9:00 AM EST Nurse Only Hematology/Oncology [facility] [address] [place] [address] Park, Nurse Hem Onc Scenery [address] [place] [address] 08/18/2023 8:30 AM EST Laboratory Laboratory Scen[facility] [address] [place] [address] Park, Lab Scenery [address] [place] [address] 08/18/2023 9:00 AM EST Nurse Only Hematology/Oncology [facility] [address] [place] [address] Park, Nurse Hem Onc Scenery [address] [place] [address] 08/21/2023 8:30 AM EST Laboratory Laboratory Scen[facility] [address] [place] [address] Park, Lab Scenery [address] [place] [address] 08/21/2023 9:00 AM EST Nurse Only Hematology/Oncology [facility] [address] [place] [address] Park, Nurse Hem Onc Scenery [address] [place] [address] 08/25/2023 8:30 AM EST Laboratory Laboratory Scen[facility] [address] [place] [address] Park, Lab Scenery [address] [place] [address] 08/25/2023 9:00 AM EST Nurse Only Hematology/Oncology Scen[facility] [address] [place] [address] Park, Nurse Hem Onc Scenery [address] [place] [address] 08/29/2023 9:15 AM EST Office Visit Hematology/Oncology [facility] [address] [place] [address] Berlin Killian MD [address] [place] [address] 09/02/2023 12:15 PM EST Office Visit Otolaryngology [facility] [address] [facility] [place] [address] Wendi Cummings MD [address] [facility] [place] [address] 10/03/2023 10:30 AM EST Telemedicine Urology Zhou Yap [address] [place] [address] Kd Dickens MD [address] [place] [address] 7, Telemed [facility] Ex Rm [facility] [place] [address] 03/18/2024 11:00 AM EDT Office Visit Dermatology [facility] [address] [facility] [place] [address] Erica Rashid MD [address] [facility] [place] [address] Health Maintenance Due Date Last Done Comments [...] this encounter Medical Devices Implanted Type Area Community Association Manager Device Identifier Shelf Expiration Date Model / Serial / Lot Port Implant W/8f Poly Cath - [id number] Implanted:Qty : 1 on 11/23/2021 by Tae Porras, at OR [facility] Right: Chest CR BARD : PERIPHERAL VASCULAR [id number] 09/03/2022 [id number] / / [id number] Port Implant W/8f Poly Cath - [id number] Implanted:Qty : 1 on 12/26/2022 by Fabián Del Cid, at OR [facility] Right: Chest CR BARD : PERIPHERAL VASCULAR [id number] 04/03/2024 [id number] / / [id number] documented as of this encounter Advance Directives Documents on File Type Date Recorded Patient Landscape Engineer Expl anation Power of Ice Handler 06/06/2022 POWER OF A TTORNEY Latest Code [...] the patient have Health Care Power of Ice Handler? No Full Code 03/12/2022 5:18 PM 03/15/2022 7:16 PM This o rder reflects the patients wishes and were consensually agreed upon. Question Answer Comments Discussion of Advance Directives occurred with: Patient Does the patient have a Living Will? No Does the patient have Health Care Power of Ice Handler? No Full Code 12/04/2021 5:18 PM 01/22/2022 8:17 PM This o rder reflects the patients wishes and were consensually agreed upon. Question Answer Comments Discussion of Advance Directives occurred with: Patient Does the patient have a Living Will? No Does the patient have Health Care Power of Ice Handler? No Care Teams Interior Decorator Relationship Specialty Start Date End Date Anthony Rico III, MD [address] [place] [address] PCP - General 03/18/1996 documented as of this encounter
--- OUTSIDE RECORDS SUMMARY | 2023-07-24 22:07 | External Medical Summary | Summary of Care ---
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) Procedures CA INJECTION, Berlin Steinberg MD [address] [place] [address] Anc Hem/Onc [facility] [address] [place] [address] Referral ID Status Reason Start Date Expiration Date V isits Requested Visits Authorized [id number] Authorized 07/15/2023 08/03/[phone] Encounter Details Date Type Department Care Team (Late st Contact Info) Description 07/24/2023 9:15 AM EST Immunization/I njection Hematology/Oncology Treatment, [place] [address] [place] [address] Nurse, Med 200 [place] [address] Chemotherapy-induced neutropenia *; Acute myeloid leukemia in [...] (Periogard) 15 mL. 0 07/08/2023 Active Nystatin 595338 UNIT/ML Mouth/Throat Suspension Swish and swallow 5 [...] Nursing Notes * Margoth Diaz LPN - 07/24/2023 8:59 AM EST Pt arrived for Zarxio injection. Administered in PK. Pt tolerated well. To return in 5 days. Discharged in stable condition. documented in this encounter Plan of Treatment Upcoming Encounters Date Type Department Care Team (Late st Contact Info) Description 07/29/2023 8:30 AM EST Laboratory Laboratory [facility] [place] [address] [place], [place] [phone] Park, Lab Scenery [address] [facility] [place], [place] [address] 07/29/2023 9:00 AM EST Nurse Only Hematology/Oncology [facility] [place] [address] [place] [address] Park, Nurse Hem Onc Scenery [address] [place], [place] [address] 07/29/2023 9:15 AM EST Immunization/Injection Hematology/Oncology Treatment, [place] 200 [facility] [place], [place] [address] Nurse, Med 4 [address] [place], [place] [address] 07/31/2023 8:30 AM EST Laboratory Laboratory [facility] [place] [address] [place], [place] [phone] Dorothy, Lab Scenery [address] [facility] [place], [place] [address] 07/31/2023 9:00 AM EST Nurse Only Hematology/Oncology [facility] [place] [address] [place], [place] [address] Park, Nurse Hem Onc Scenery [address] [place] [address] 07/31/2023 9:15 AM EST Immunization/Injection Hematology/Oncology Treatment, [place] 200 [place] [address] Nurse, Med 4 [address] [place], [place] [address] 08/05/2023 8:30 AM EST Laboratory Laboratory [facility] [place] [address] [place] [phone] Park, Lab Scenery [address] [place] [address] 08/05/2023 9:00 AM EST Nurse Only Hematology/Oncology Scenery [facility] [address] [place] [address] Park, Nurse Hem Onc Scenery [address] [place] [address] 08/07/2023 8:30 AM EST Laboratory Laboratory Scenery [facility] [address] [place] [address] Park, Lab Scenery [address] [place] [address] 08/07/2023 9:00 AM EST Nurse Only Hematology/Oncology Scenery [facility] [address] [place] [address] Park, Nurse Hem Onc Scenery [address] [place] [address] 08/11/2023 8:30 AM EST Laboratory Laboratory [facility] [address] [place] [address] Park, Lab Scenery [address] [place] [address] 08/11/2023 9:00 AM EST Nurse Only Hematology/Oncology Scenery [facility] [address] [place] [address] Park, Nurse Hem Onc Scenery [address] [place] [address] 08/14/2023 8:30 AM EST Laboratory Laboratory Scenery [facility] [address] [place] [phone] Park, Lab Scenery [address] [place] [address] 08/14/2023 9:00 AM EST Nurse Only Hematology/Oncology Scenery [facility] [address] [place] [address] Park, Nurse Hem Onc Scenery [address] [place] [address] 08/18/2023 8:30 AM EST Laboratory Laboratory Scenery [facility] [address] [place] [address] Park, Lab Scenery [address] [place] [address] 08/18/2023 9:00 AM EST Nurse Only Hematology/Oncology Scenery [facility] [address] [place] [address] Park, Nurse Hem Onc Scenery [address] [place] [address] 08/21/2023 8:30 AM EST Laboratory Laboratory Scenery [facility] [address] [place] [address] Park, Lab Scenery [address] [place] [address] 08/21/2023 9:00 AM EST Nurse Only Hematology/Oncology Scenery [facility] [address] [place] [address] Park, Nurse Hem Onc Scenery [address] [place] [address] 08/25/2023 8:30 AM EST Laboratory Laboratory Scenery [facility] [address] [place] [address] Park, Lab Scenery [address] [place] [address] 08/25/2023 9:00 AM EST Nurse Only Hematology/Oncology Scenery [facility] [address] [place] [address] Park, Nurse Hem Onc Scenery [address] [place] [address] 08/29/2023 9:15 AM EST Office Visit Hematology/Oncology [facility] 200 [place] [address] Berlin Killian MD 200 [place] [address] 09/02/2023 12:15 PM EST Office Visit Otolaryngology [facility] [address] [facility] [place] [address] Wendi Cummings MD 132 [facility] [place] [address] 10/03/2023 10:30 AM EST Telemedicine Urology Zhou Yap [address] [place] [address] [place] [address] Kd Dickens MD [address] [place] [address] 7, Telemed [facility] Ex Rm [facility] [place] [address] 03/18/2024 11:00 AM EDT Office Visit Dermatology [facility] 200 [facility] [place] [address] Erica Rashid MD 200 [facility] [place] [address] Health Maintenance Due Date Last Done Comments [...] this encounter Medical Devices Implanted Type Area Boilermaker Welder Device Identifier Shelf Expiration Date Model / Serial / Lot Port Implant W/8f Poly Cath - [id number] Implanted:Qty : 1 on 11/23/2021 by Tae Porras, at OR [facility] Right: Chest CR BARD : PERIPHERAL VASCULAR [id number] 09/03/2022 [id number] / / [id number] Port Implant W/8f Poly Cath - [id number] Implanted:Qty : 1 on 12/26/2022 by Fabián Del Cid, at OR [facility] Right: Chest CR BARD : PERIPHERAL VASCULAR [id number] 04/03/2024 [id number] / / [id number] documented as of this encounter Visit Diagnoses Diagnosis Chemotherapy-induced neutropenia- Primary Drug induced neutropenia Acute myeloid leukemia in remission (HCC) Acute myeloid leukemia in remission documented in this encounter Administered Medications Inactive Administered Medications - up to 3 most recent administrations Medication Order MAR Action Action Date Dose Rate Site Filgrastim-sndz (Zarxio) inj 480 mcg 480 mcg, Subcutaneous, ONCE, On Lori 07/24/23 at 0930, For 1 dose, In Refrigerator Given 07/24/2023 8:52 AM EST 480 mcg Arm Right Upper documented in this encounter Advance Directives Documents on File Type Date Recorded Patient Associate Software Development Engineer Expl anation Power of Wheel Truing Machine Tender 06/06/2022 POWER OF A TTORNEY Latest Code [...] the patient have Health Care Power of Wheel Truing Machine Tender? No Full Code 03/12/2022 5:18 PM 03/15/2022 7:16 PM This o rder reflects the patients wishes and were consensually agreed upon. Question Answer Comments Discussion of Advance Directives occurred with: Patient Does the patient have a Living Will? No Does the patient have Health Care Power of Wheel Truing Machine Tender? No Full Code 12/04/2021 5:18 PM 01/22/2022 8:17 PM This o rder reflects the patients wishes and were consensually agreed upon. Question Answer Comments Discussion of Advance Directives occurred with: Patient Does the patient have a Living Will? No Does the patient have Health Care Power of Wheel Truing Machine Tender? No Care Teams Community Engagement Manager Relationship Specialty Start Date End Date Anthony Rico III, MD 200 [place] [address] PCP - General 03/18/1996 documented as of this encounter
--- OUTSIDE RECORDS SUMMARY | 2023-07-24 22:07 | External Medical Summary | Summary of Care ---
Author Name Unknown Organization [facility] Address [address] [facility] [place] [address] Phone [phone] Care Team Providers Care Shank Sander Name Role Phone Jacky THOMAS MD, Anthony Moctezuma Primary Care Provider [phone] Encounter Details Date Type Department Care Team (Late st Contact Info) Description 07/24/2023 9:00 AM EST Nurse Only Hematology/Oncology [facility] [place] [address] [place] [address] Park, Nurse Hem Onc Scenery [address] [place] [address] Arrived Allergies Active Allergy Reactions Criticality Noted [...] (Periogard) 15 mL. 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 Called [facility] ER and spoke to HIRAM Villarreal Charge, report given. Pt agreeable to ER plan. Hgb 7.1, PLT <10, WBC <0.20 Manual BP 78/48, HR 80, SP02 95% This RN auscultated patient lungs, clear throughout. documented in this encounter Plan of Treatment Upcoming Encounters Date Type Department Care Team (Late st Contact Info) Description 07/29/2023 8:30 AM EST Laboratory Laboratory [facility] [place] [address] [place], [place] [phone] Park, Lab Scenery [address] [facility] [place], [place] [address] 07/29/2023 9:00 AM EST Nurse Only Hematology/Oncology [facility] [place] [address] [place] [address] Park, Nurse Hem Onc Scenery [address] [place], [place] [address] 07/29/2023 9:15 AM EST Immunization/Injection Hematology/Oncology Treatment, [place] 200 [facility] [place], [place] [address] Nurse, Med 4 [address] [place], [place] [address] 07/31/2023 8:30 AM EST Laboratory Laboratory [facility] [place] [address] [place], [place] [phone] Dorothy, Lab Scenery [address] [facility] [place], [place] [address] 07/31/2023 9:00 AM EST Nurse Only Hematology/Oncology [facility] [place] [address] [place], [place] [address] Park, Nurse Hem Onc Scenery [address] [place] [address] 07/31/2023 9:15 AM EST Immunization/Injection Hematology/Oncology Treatment, [place] 200 [place] [address] Nurse, Med 4 [address] [place], [place] [address] 08/05/2023 8:30 AM EST Laboratory Laboratory [facility] [place] [address] [place] [phone] Park, Lab Scenery [address] [place] [address] 08/05/2023 9:00 AM EST Nurse Only Hematology/Oncology Scenery [facility] [address] [place] [address] Park, Nurse Hem Onc Scenery [address] [place] [address] 08/07/2023 8:30 AM EST Laboratory Laboratory Scenery [facility] [address] [place] [address] Park, Lab Scenery [address] [place] [address] 08/07/2023 9:00 AM EST Nurse Only Hematology/Oncology Scenery [facility] [address] [place] [address] Park, Nurse Hem Onc Scenery [address] [place] [address] 08/11/2023 8:30 AM EST Laboratory Laboratory [facility] [address] [place] [address] Park, Lab Scenery [address] [place] [address] 08/11/2023 9:00 AM EST Nurse Only Hematology/Oncology Scenery [facility] [address] [place] [address] Park, Nurse Hem Onc Scenery [address] [place] [address] 08/14/2023 8:30 AM EST Laboratory Laboratory Scenery [facility] [address] [place] [address] Park, Lab Scenery [address] [place] [address] 08/14/2023 9:00 AM EST Nurse Only Hematology/Oncology Scenery [facility] [address] [place] [address] Park, Nurse Hem Onc Scenery [address] [place] [address] 08/18/2023 8:30 AM EST Laboratory Laboratory Scenery [facility] [address] [place] [address] Park, Lab Scenery [address] [place] [address] 08/18/2023 9:00 AM EST Nurse Only Hematology/Oncology Scenery [facility] [address] [place] [address] Park, Nurse Hem Onc Scenery [address] [place] [address] 08/21/2023 8:30 AM EST Laboratory Laboratory Scenery [facility] [address] [place] [address] Park, Lab Scenery [address] [place] [address] 08/21/2023 9:00 AM EST Nurse Only Hematology/Oncology Scenery [facility] [address] [place] [address] Park, Nurse Hem Onc Scenery [address] [place] [address] 08/25/2023 8:30 AM EST Laboratory Laboratory Scenery [facility] [address] [place] [address] Park, Lab Scenery [address] [place] [address] 08/25/2023 9:00 AM EST Nurse Only Hematology/Oncology Scenery [facility] [address] [place] [address] Park, Nurse Hem Onc Scenery [address] [place] [address] 08/29/2023 9:15 AM EST Office Visit Hematology/Oncology [facility] 200 [facility] [place] [address] Berlin Killian MD 200 [facility] [place] [address] 09/02/2023 12:15 PM EST Office Visit Otolaryngology [facility] 132 [facility] [place] [address] Wendi Cummings MD [address] [facility] [place] [address] 10/03/2023 10:30 AM EST Telemedicine Urology Zhou Yap [address] [place] [address] Kd Dickens MD [address] [place] [address] 7, Telemed [facility] Urology Ex Rm [facility] [place] [address] 03/18/2024 11:00 AM EDT Office Visit Dermatology [facility] 200 [facility] [place] [address] Erica Rashid MD 200 [facility] [place] [address] Health Maintenance Due Date Last Done Comments [...] this encounter Medical Devices Implanted Type Area Embossing Calender Operator Device Identifier Shelf Expiration Date Model / Serial / Lot Port Implant W/8f Poly Cath - [id number] Implanted:Qty : 1 on 11/23/2021 by Tae Porras, at OR [facility] Right: Chest CR BARD : PERIPHERAL VASCULAR [id number] 09/03/2022 [id number] / / [id number] Port Implant W/8f Poly Cath - [id number] Implanted:Qty : 1 on 12/26/2022 by Fabián Del Cid, at OR [facility] Right: Chest CR BARD : PERIPHERAL VASCULAR [id number] 04/03/2024 [id number] / / [id number] documented as of this encounter Advance Directives Documents on File Type Date Recorded Patient Physical Therapy Aides Teacher Expl anation Power of Absorption Operator 06/06/2022 POWER OF A TTORNEY Latest [...] the patient have Health Care Power of Absorption Operator? No Full Code 03/12/2022 5:18 PM 03/15/2022 7:16 PM This o rder reflects the patients wishes and were consensually agreed upon. Question Answer Comments Discussion of Advance Directives occurred with: Patient Does the patient have a Living Will? No Does the patient have Health Care Power of Absorption Operator? No Full Code 12/04/2021 5:18 PM 01/22/2022 8:17 PM This o rder reflects the patients wishes and were consensually agreed upon. Question Answer Comments Discussion of Advance Directives occurred with: Patient Does the patient have a Living Will? No Does the patient have Health Care Power of Absorption Operator? No Care Teams Shank Sander Relationship Specialty Start Date End Date Anthony Rico III, MD [address] [place] [address] PCP - General 03/18/1996 documented as of this encounter
--- OUTSIDE RECORDS SUMMARY | 2023-07-24 22:08 | External Medical Summary ---
Author Name Unknown Address Unknown Organization K01:[facility] [place] - [address] [place] [address] Laboratory Report Ordering Provider Test Date Status FIORDALIZA MAX 07/24/2023 08:40:42 Final Observation Date Value Abnormality Reference (Units ) Status Uric Acid 07/24/2023 08:40:42 3.3 Below low normal 3.4 -7.0 (mg/dL) Final Performing Location [facility] [place] - [address] [place] [address]
--- OUTSIDE RECORDS SUMMARY | 2023-07-24 22:08 | External Medical Summary ---
Author Name Unknown Address Unknown Organization K01[place] [place] [address] [place] [address] Laboratory Report Ordering Provider Test Date Status FIORDALIZA MAX 07/24/2023 08:40:42 Final Observation Date Value Abnormality Reference (Units ) Status LDH 07/24/2023 08:40:42 469 Above high normal <= 250 (U/L) Final Performing Location LABORATORY [facility] - [address] [place] [address]
[2023-07-25] MEDS: MEROPENEM 500 MG in SYRINGE 0 ML IV SCH ×4 (02:25→20:11)
[2023-07-25] MEDS: ACETAMINOPHEN 325 MG TAB PO PRN ×3 (03:55→17:26)
[2023-07-25] MEDS: PANTOprazole 40 MG TAB PO SCH (05:56)
[2023-07-25 08:25] LABS: Hematocrit (blood only) 18.2 % (42.0-52.0); Hemoglobin 6.2 g/dl (14.0-18.0); Mean Corpuscular Hemoglobin 28.7 pg (25.0-34.0); Mean Corpuscular Hgb Conc 34.1 g/dL (32.0-36.0); Mean Corpuscular Volume 84.3 fL (80.0-100.0); Mean Platelet Volume 9.2 fL (9.4-12.4); Platelet Count 4 K/uL (130-400); RDW Coefficient of Variation 13.4 % (11.5-14.5); Red Blood Count 2.16 M/uL (4.70-6.10); White Blood Count 0.21 K/ul (4.8-10.8)
[2023-07-25 08:28] LABS: Albumin Globulin Ratio 1.2 (0.9-2); Albumin Level 2.7 gm/dl (3.4-5.0); BUN Creatinine Ratio 14.1 (10-20); Bilirubin,Total 0.6 mg/dl (0.2-1.0); Calcium 7.5 mg/dl (8.6-10.3); Est GFR (Non-African American) 88.9 ml/min; Globulin 2.2 gm/dl (2.5-4.0); Phosphorus 3.5 mg/dl (2.5-4.9); Potassium 4.1 mmol/L (3.5-5.1); Total Protein 4.9 gm/dl (6.0-8.3)
[2023-07-25] MEDS ORDERED: SODIUM CHLORIDE 0.9% 250 ML IV PRN (08:32)
[2023-07-25] MEDS: INSULIN ASPART PER UNIT CHARGE SC SCH ×4 (08:53→20:53)
[2023-07-25] MEDS: POTASSIUM CHLORIDE 10 MEQ TABCR PO SCH (08:56)
[2023-07-25] MEDS: amLODIPine BESYLATE 5 MG TAB PO SCH (08:56)
[2023-07-25] MEDS: ROSUVASTATIN CALCIUM 10 MG TAB PO SCH (08:56)
[2023-07-25] MEDS: ESCITALOPRAM OXALATE 10 MG TAB PO SCH (08:56)
[2023-07-25] MEDS: CEROVITE ADV FORMULA TAB PO SCH (08:56)
[2023-07-25] MEDS: GABAPENTIN 100 MG CAP PO SCH ×3 (08:56→20:12)
[2023-07-25] MEDS: ACYCLOVIR 400 MG TAB PO SCH ×2 (08:56→20:11)
[2023-07-25] MEDS: AMIODARONE 200 MG TAB PO SCH (08:57)
[2023-07-25] MEDS: NYSTATIN SUSP 500,000 U/5 ML UDC PO SCH ×2 (08:57→20:11)
[2023-07-25] MEDS: CHLORHEXIDINE GLUCONATE 0.12% 480 ML MT SCH ×2 (08:58→20:13)
[2023-07-25] MEDS ORDERED: EPLERENONE 25 MG PO SCH (09:00)
[2023-07-25] MEDS: VANCOMYCIN HCL 1,000 MG in SODIUM CHLORIDE 0.9% 250 ML IV SCH (09:02)
[2023-07-25 09:05] LABS: Estimated Average Glucose 163 mg/dl; Hemoglobin A1C 7.3 % (4.5-5.6)
--- NOTE | 2023-07-25 12:55 | Hospitalist Progress Note ---
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 Neutropenic precautions Home prophylaxis with levaquin, acyclovir and Cresemba. Holding ppx levaquin for now. Follows with outpatient heme/onc Dr. Killian (6) Atrial fibrillation: Plan: - Rate control with amiodarone - Not on anticoagulation due to thrombocytopenia (7) Anemia: Plan: - Monitoring counts - Transfusion support as necessary- requiring frequent transfusions, at least weekly at this point (8) Diabetes mellitus, type 2: Plan: - Holding metformin, ISS with accuchecks achs -A1C of 7.3 (9) Hyperlipidemia: Plan: - Cont statin therapy (10) Hypertension: Plan: Hold losartan, epelerenone, and furosemide presently, BP was slightly low on admission but now improved with BM of 133/85 DVT ppx: teds, scds FEN/GI: HH/DM diet CODE: FULL Admission and Anticipated Discharge Date Admission Date: July 24, 2023 Subjective Pt seen in the AM States still having chills. Noted some difficulty with trying to get the induction chemo done in the past for the biopsy. Would like to discuss plan going forward with his oncologist about next steps given the recurrent need for transfusion.s Review of Systems Review of Systems: All systems reviewed & are unremarkable except as noted in Subjective Physical Exam Physical Exam: General: Alert, oriented. No acute distress Skin: No noted rashes or bruises Psych: Appropriate mood and affect Neuro: was laying in bed, some hearing loss HEENT: NC/AT Chest: Nontender to palpation. CV: RRR Resp: no increased effort of breathing. Abdomen: Soft, nontender, nondistended. Extremities: No edema in lower extremities bilaterally. Results & Data Results & Data Vital Signs (Past 12 Hours) Vital Signs Temp Pulse Pulse Resp BP BP Pulse Ox 07/25/23 11:47 36.8 C 97 H 19 148/95 H 95 07/25/23 11:46 36.5 C 72 21 128/68 99 07/25/23 11:34 36.5 C 67 18 121/84 99 07/25/23 11:25 36.7 C 70 20 130/76 97 07/25/23 10:35 36.7 C 70 18 130/76 100 07/25/23 10:35 36.6 C 66 20 116/72 98 07/25/23 10:15 36.5 C 69 18 111/71 97 07/25/23 08:32 07/25/23 08:00 81 07/25/23 07:52 36.8 C 68 20 109/65 96 07/25/23 05:56 36.7 C 07/25/23 03:34 39.3 C H 97 H 132/78 92 O2 Del Method O2 Flow Rate 07/25/23 11:47 2 07/25/23 11:46 2 07/25/23 11:34 Nasal Cannula 07/25/23 11:25 2 07/25/23 10:35 2 07/25/23 10:35 2 07/25/23 10:15 07/25/23 08:32 Nasal Cannula 2 07/25/23 08:00 07/25/23 07:52 Room Air 07/25/23 05:56 07/25/23 03:34 Room Air (6) Atrial fibrillation Atrial fibrillation type: unspecified Qualified Code(s): I48.91 - Unspecified atrial fibrillation (7) Anemia Anemia type: unspecified type Qualified Code(s): D64.9 - Anemia, unspecified
--- NOTE | 2023-07-25 16:14 | Pharmacy Report ---
Pharmacy PK ABX Note - Date of Service July 25, 2023 - Assessment and Plan Assessment 68 year old M receiving meropenem and vancomycin for treatment of febrile neutropenia. Pertinent microbiologic data includes: recent hx ESBL Kleb pneumo bacteremia discharged ~3 weeks ago on levofloxacin, potentially life-long per ID Antibiotic orders empirically and fill complete tomorrow (07/26) if not extended. Plan Vancomycin * Current regimen: 1000 mg IV every 12 hours * Random level obtained 07/25/23 resulted as 12.6 mcg/mL. This is not predicted to achieve target AUC/DANIEL of 400-600 mg/L.hr * Change to 1250 mg IV every 12 hours * Predicted AUC at steady state: 474 mg/L.hr * Will repeat level in the next 48-72 hours if therapy is continued and/or change in patient clinical status Pharmacy will continue to follow and will adjust dose/frequency as necessary. Thank you. Pharmacy has transitioned to AUC monitoring for vancomycin. AUC/DANIEL is the preferred PK/PD target and is associated with decreased risk of nephrotoxicity compared to traditional trough targets.
--- NOTE | 2023-07-25 16:53 | XRay Report ---
XR KUB/Abdomen 1 view CLINICAL HISTORY: prominent small bowel loop on Chest xray TECHNIQUE: 1 view of the abdomen was obtained. Comparison: Comparison is made to chest x-ray 07/24/2023 FINDINGS: Lung bases are unremarkable. The osseous structures are grossly unremarkable. The bowel gas pattern i s nonobstructive. Small stool burden is seen. Previously noted gas-filled loop of bowel likely repres ent large bowel. IMPRESSION: Previously noted gas-filled loop of bowel in the chest x-ray likely represents gas distended large ravi wel. No small bowel obstruction is seen. ACT 112: Negative or not required by law. Electronically signed by: Dallas Joyner M.D. 07/25/2023 4:51 PM
[2023-07-25] MEDS: VANCOMYCIN HCL 1,250 MG in SODIUM CHLORIDE 0.9% 250 ML IV SCH (17:33)
[2023-07-25] MEDS: TAMSULOSIN HCL 0.4 MG CAP PO SCH (20:11)
[2023-07-25] MEDS: FINASTERIDE 5 MG TAB PO SCH (20:11)
[2023-07-25 22:57] LABS: Hematocrit (blood only) 24.9 % (42.0-52.0); Hemoglobin 8.5 g/dl (14.0-18.0); White Blood Count 0.24 K/ul (4.8-10.8)
[2023-07-25 22:58] LABS: Mean Corpuscular Hemoglobin 29.1 pg (25.0-34.0); Mean Corpuscular Hgb Conc 34.1 g/dL (32.0-36.0); Mean Corpuscular Volume 85.3 fL (80.0-100.0); RDW Coefficient of Variation 13.4 % (11.5-14.5); RDW Standard Deviation 42.1 fL (36.4-46.3); Red Blood Count 2.92 M/uL (4.70-6.10)
[2023-07-25 23:09] LABS: Mean Platelet Volume 10.5 fL (9.4-12.4); Platelet Count 11 K/uL (130-400)
[2023-07-25 23:11] LABS: Platelet Estimate Signific. Decreased (Normal)
[2023-07-26] MEDS: MEROPENEM 500 MG in SYRINGE 0 ML IV SCH ×4 (02:00→19:36)
[2023-07-26] MEDS: ACETAMINOPHEN 325 MG TAB PO PRN ×3 (04:23→19:36)
[2023-07-26] MEDS: PANTOprazole 40 MG TAB PO SCH (04:23)
[2023-07-26] MEDS: VANCOMYCIN HCL 1,250 MG in SODIUM CHLORIDE 0.9% 250 ML IV SCH (04:24)
--- NOTE | 2023-07-26 05:42 | Electrocardiogram Report ---
Test Reason : Blood Pressure : / mmHG Vent. Rate : 083 BPM Atrial Rate : 083 BPM P-R Int : 160 ms QRS Dur : 092 ms QT Int : 382 ms P-R-T Axes : 075 016 044 degrees QTc Int : 448 ms Normal sinus rhythm Normal ECG When compared with ECG of 30-JUN-2023 13:39, Nonspecific T wave abnormality no longer evident in Inferior leads Nonspecific T wave abnormality no longer evident in Lateral leads QT has lengthened Confirmed by Jordin Tejada ([id number]) on 07/26/2023 5:42:38 AM Referred By: Berlin Killian Confirmed By:Jordin Tejada
[2023-07-26 08:32] LABS: Albumin Globulin Ratio 1.2 (0.9-2); Albumin Level 2.7 gm/dl (3.4-5.0); BUN Creatinine Ratio 14.1 (10-20); Bilirubin,Total 0.6 mg/dl (0.2-1.0); Calcium 7.6 mg/dl (8.6-10.3); Creatinine Clr Calc Pharmacy 98.1 ml/min; Est GFR (African American) 106.7 ml/min; Est GFR (Non-African American) 92.1 ml/min; Globulin 2.3 gm/dl (2.5-4.0); Phosphorus 3.4 mg/dl (2.5-4.9); Potassium 3.9 mmol/L (3.5-5.1)
[2023-07-26 08:42] LABS: Hematocrit (blood only) 22.2 % (42.0-52.0); Hemoglobin 7.6 g/dl (14.0-18.0); Mean Corpuscular Hemoglobin 29.1 pg (25.0-34.0); Mean Corpuscular Hgb Conc 34.2 g/dL (32.0-36.0); Mean Corpuscular Volume 85.1 fL (80.0-100.0); Mean Platelet Volume 11.2 fL (9.4-12.4); Platelet Count 6 K/uL (130-400); RDW Coefficient of Variation 13.4 % (11.5-14.5); Red Blood Count 2.61 M/uL (4.70-6.10); White Blood Count 0.24 K/ul (4.8-10.8)
[2023-07-26] MEDS: INSULIN ASPART PER UNIT CHARGE SC SCH ×4 (09:00→20:35)
[2023-07-26] MEDS: ACYCLOVIR 400 MG TAB PO SCH ×2 (09:05→19:37)
[2023-07-26] MEDS: POTASSIUM CHLORIDE 10 MEQ TABCR PO SCH (09:05)
[2023-07-26] MEDS: NYSTATIN SUSP 500,000 U/5 ML UDC PO SCH ×2 (09:05→19:38)
[2023-07-26] MEDS: amLODIPine BESYLATE 5 MG TAB PO SCH (09:05)
[2023-07-26] MEDS: GABAPENTIN 100 MG CAP PO SCH ×3 (09:06→19:38)
[2023-07-26] MEDS: ROSUVASTATIN CALCIUM 10 MG TAB PO SCH (09:08)
[2023-07-26] MEDS: CHLORHEXIDINE GLUCONATE 0.12% 480 ML MT SCH ×2 (09:08→19:39)
[2023-07-26] MEDS: AMIODARONE 200 MG TAB PO SCH (09:08)
[2023-07-26] MEDS: CEROVITE ADV FORMULA TAB PO SCH (09:08)
[2023-07-26] MEDS: ESCITALOPRAM OXALATE 10 MG TAB PO SCH (09:08)
--- NOTE | 2023-07-26 13:53 | Hospitalist Progress Note ---
Date of Service July 26, 2023 Assessment & Plan (1) Sepsis: (2) Pancytopenia: (3) Hairy leukoplakia of tongue: (4) AML (acute myeloid leukemia) in relapse: (5) Neutropenic fever: Plan: History of relapsed AML; chemotherapy and on hold since April 2023 secondary to pancytopenia. Presented with fever. Chest x-rayno acute findings. UA not suggestive of infection Lyme screening test negative Blood cultureno growth in 48 hours. Fungal culture pending CMV, Rickettsial panel anaplasmosis pending histo galactomannan pending Biofire respiratory panel negative Labs reviewed; WBC count of 0.4. Platelet count of 6000 Vancomycin discontinued. Continue on meropenem. Repeat blood culture. Will consult infectious disease to guide treatment given patient's prolonged neutropenia and frequent febrile episode. Neutropenic precautions Home prophylaxis with levaquin, acyclovir and Cresemba. Holding ppx levaquin for now. Will transfuse 2 units of pooled platelets. So far, patient has been transfused 2 units of packed RBC and 2 units of platelets. (6) Atrial fibrillation: Plan: - Rate control with amiodarone - Not on anticoagulation due to thrombocytopenia (7) Anemia: Plan: - Monitoring counts - Transfusion support as necessary (8) Diabetes mellitus, type 2: Plan: - Holding metformin, ISS with accuchecks achs -A1C of 7.3 (9) Hyperlipidemia: Plan: - Cont statin therapy (10) Hypertension: Plan: Lasix and losartan resumed. DVT ppx: teds, scds FEN/GI: HH/DM diet CODE: dial maker spent evaluating patient, direct bedside care, chart review, placing orders, interpretation of diagnostic studies, discussion with consultants, patient, and family members, as well as other required patient management activities is 50 minutes Please note the above document was generated using voice recognition software. It may contain grammatical, syntax or spelling errors. Any formal questions or c oncerns about the content, text or information contained within the body of this dictation should be directly addressed to the provider for clarification Admission and Anticipated Discharge Date Admission Date: July 24, 2023 Subjective Patient seen and examined at bedside. He is lying on the bed comfortably; not in distress. Febrile to 39.0 C overnight. Review of Systems Review of Systems: All systems reviewed & are unremarkable except as noted in Subjective Physical Exam Physical Exam: Constitutional: WD/WN, vitals as above, NAD, sitting up in bed, pleasant, conversing easily Eyes-subconjunctival hemorrhage on left eye Respiratory: normal respiratory effort, lungs clear to auscultation, no wheeze, rales, rhonchi. Normal insp/exp effort, no accessory muscle use Cardiovascular: RRR, no murmur, no edema Vessels: no JVD or carotid bruit Chest: normal inspection of chest Abdomen: normal bowel sounds, soft, nontender, no hepatosplenomegaly Musculoskeletal: no cyanosis or clubbing, extremities motor strength 5/5 Skin: no rashes, warm and dry normal turgor Neurologic: PERRL, EOMI, accommodation nl, no face palsy, no dysarthria CN's II- XI intact bilaterally and moves all extremities Psychiatric: A+Ox3, euthymic affect Results & Data Results & Data Vital Signs (Past 12 Hours) Vital Signs Temp Pulse Pulse Resp BP BP BP 07/26/23 12:58 36.9 C 75 17 145/94 H 07/26/23 12:41 36.8 C 75 18 145/88 H 07/26/23 11:31 37.5 C 71 18 125/73 07/26/23 08:00 07/26/23 08:00 36.4 C L 07/26/23 07:37 66 07/26/23 07:10 36.5 C 57 L 18 113/64 07/26/23 03:52 39.0 C H 80 18 142/84 H Pulse Ox O2 Del Method O2 Flow Rate 07/26/23 12:58 94 07/26/23 12:41 100 07/26/23 11:31 96 Room Air 07/26/23 08:00 Room Air, Nasal Cannula 2 07/26/23 08:00 97 Room Air 07/26/23 07:37 07/26/23 07:10 94 Room Air 07/26/23 03:52 90 Room Air (6) Atrial fibrillation Atrial fibrillation type: unspecified Qualified Code(s): I48.91 - Unspecified atrial fibrillation (7) Anemia Anemia type: unspecified type Qualified Code(s): D64.9 - Anemia, unspecified
[2023-07-26] MEDS: oxyCODONE HCL IR 5 MG TAB (IMMEDIATE RELEASE) PO PRN (19:37)
[2023-07-26] MEDS: FINASTERIDE 5 MG TAB PO SCH (19:38)
[2023-07-26] MEDS: TAMSULOSIN HCL 0.4 MG CAP PO SCH (19:39)
[2023-07-26 21:16] LABS: Hematocrit (blood only) 24.7 % (42.0-52.0); Hemoglobin 8.8 g/dl (14.0-18.0); Mean Corpuscular Hgb Conc 35.6 g/dL (32.0-36.0); Mean Corpuscular Volume 84.3 fL (80.0-100.0); Mean Platelet Volume 9.6 fL (9.4-12.4); Platelet Count 16 K/uL (130-400); RDW Coefficient of Variation 13.5 % (11.5-14.5); RDW Standard Deviation 42.5 fL (36.4-46.3); Red Blood Count 2.93 M/uL (4.70-6.10); White Blood Count 0.16 K/ul (4.8-10.8)
[2023-07-27] MEDS: MEROPENEM 500 MG in SYRINGE 0 ML IV SCH ×4 (03:11→20:30)
[2023-07-27] MEDS: ACETAMINOPHEN 325 MG TAB PO PRN ×2 (03:11→23:19)
[2023-07-27] MEDS: oxyCODONE HCL IR 5 MG TAB (IMMEDIATE RELEASE) PO PRN ×3 (03:11→20:41)
[2023-07-27] MEDS: PANTOprazole 40 MG TAB PO SCH (05:36)
[2023-07-27 07:25] LABS: Albumin Globulin Ratio 1.2 (0.9-2); Albumin Level 2.8 gm/dl (3.4-5.0); BUN Creatinine Ratio 15.7 (10-20); Bilirubin,Total 0.6 mg/dl (0.2-1.0); Calcium 7.6 mg/dl (8.6-10.3); Creatinine Clr Calc Pharmacy 109.3 ml/min; Est GFR (African American) 111.6 ml/min; Est GFR (Non-African American) 96.3 ml/min; Globulin 2.3 gm/dl (2.5-4.0); Total Protein 5.1 gm/dl (6.0-8.3)
[2023-07-27 07:54] LABS: Hematocrit (blood only) 24.5 % (42.0-52.0); Hemoglobin 8.4 g/dl (14.0-18.0); Mean Corpuscular Hemoglobin 29.3 pg (25.0-34.0); Mean Corpuscular Hgb Conc 34.3 g/dL (32.0-36.0); Mean Corpuscular Volume 85.4 fL (80.0-100.0); Mean Platelet Volume 10.2 fL (9.4-12.4); Platelet Count 12 K/uL (130-400); RDW Coefficient of Variation 13.3 % (11.5-14.5); RDW Standard Deviation 41.6 fL (36.4-46.3); Red Blood Count 2.87 M/uL (4.70-6.10)
[2023-07-27] MEDS: INSULIN ASPART PER UNIT CHARGE SC SCH ×4 (08:54→20:35)
[2023-07-27] MEDS: CHLORHEXIDINE GLUCONATE 0.12% 480 ML MT SCH ×2 (09:07→20:31)
[2023-07-27] MEDS: FUROSEMIDE 40 MG TAB PO SCH (09:08)
[2023-07-27] MEDS: LOSARTAN POTASSIUM 50 MG TAB PO SCH (09:08)
[2023-07-27] MEDS: ROSUVASTATIN CALCIUM 10 MG TAB PO SCH (09:09)
[2023-07-27] MEDS: amLODIPine BESYLATE 5 MG TAB PO SCH (09:09)
[2023-07-27] MEDS: AMIODARONE 200 MG TAB PO SCH (09:09)
[2023-07-27] MEDS: ACYCLOVIR 400 MG TAB PO SCH ×2 (09:10→20:30)
[2023-07-27] MEDS: ESCITALOPRAM OXALATE 10 MG TAB PO SCH (09:10)
[2023-07-27] MEDS: GABAPENTIN 100 MG CAP PO SCH ×3 (09:10→20:30)
[2023-07-27] MEDS: NYSTATIN SUSP 500,000 U/5 ML UDC PO SCH ×2 (09:10→20:30)
[2023-07-27] MEDS: POTASSIUM CHLORIDE 10 MEQ TABCR PO SCH (09:10)
[2023-07-27] MEDS: CEROVITE ADV FORMULA TAB PO SCH (09:10)
--- NOTE | 2023-07-27 13:16 | Hospitalist Progress Note ---
Date of Service July 27, 2023 Assessment & Plan (1) Sepsis: (2) Pancytopenia: (3) Hairy leukoplakia of tongue: (4) AML (acute myeloid leukemia) in relapse: (5) Neutropenic fever: Plan: History of relapsed AML; chemotherapy and on hold since April 2023 secondary to pancytopenia. Last chemotherapy was in between April 08 to april 11, 2023 He was recently started on 480 mcg G-CSF twice a week due to persistent neutropenia. His last dose was on July 24, 2023. He is due for another dose on July 29, 2023 Patient presented to the ED with fever and chills. He was on Levaquin as per infectious disease as well as acyclovir and Cresemba for prophylaxis against infection. Chest x-rayno acute findings. UA not suggestive of infection Lyme screening test negative Blood cultureno growth in 48 hours. Fungal culture pending CMV, Rickettsial panel anaplasmosis pending histo galactomannan pending Biofire respiratory panel negative Labs reviewed; WBC count of 0.2. Platelet count of 2000 Status post 4 units of platelets and 2 units of packed RBC during the hospitalization Vancomycin discontinued. Continue on meropenem. Will consult infectious disease to guide treatment given patient's prolonged neutropenia and frequent febrile episodes. Neutropenic precautions Home prophylaxis with levaquin, acyclovir and Cresemba. Holding ppx levaquin for now. (6) Atrial fibrillation: Plan: - Rate control with amiodarone - Not on anticoagulation due to thrombocytopenia (7) Anemia: Plan: - Monitoring counts - Transfusion support as necessary (8) Diabetes mellitus, type 2: Plan: - Holding metformin, ISS with accuchecks achs -A1C of 7.3 (9) Hyperlipidemia: Plan: - Cont statin therapy (10) Hypertension: Plan: Lasix and losartan resumed. DVT ppx: teds, scds FEN/GI: HH/DM diet CODE: FULL Please note the above document was generated using voice recognition software. It may contain grammatical, syntax or spelling errors. Any formal questions or concerns about the content, text or information contained within the body of this dictation should be directly addressed to the provider for clarification Admission and Anticipated Discharge Date Admission Date: July 24, 2023 Subjective Overnight, patient had chills. No documented fever. He denies shortness of breath, cough, abdominal pain, abdominal discomfort, bleeding/bruising, urinary symptoms Review of Systems Review of Systems: All systems reviewed & are unremarkable except as noted in Subjective Physical Exam Physical Exam: Constitutional: WD/WN, vitals as above, NAD, sitting up in bed, pleasant, conversing easily Eyes-subconjunctival hemorrhage on left eye Mouthdarkish discoloration of the tongue. Oral mucosa moist otherwise. Respiratory: normal respiratory effort, lungs clear to auscultation, no wheeze, rales, rhonchi. Normal insp/exp effort, no accessory muscle use Cardiovascular: RRR, no murmur, no edema Vessels: no JVD or carotid bruit Chest: normal inspection of chest Abdomen: normal bowel sounds, soft, nontender, no hepatosplenomegaly Musculoskeletal: no cyanosis or clubbing, extremities motor strength 5/5 Skin: no rashes, warm and dry normal turgor Neurologic: PERRL, EOMI, accommodation nl, no face palsy, no dysarthria CN's II- XI intact bilaterally and moves all extremities Psychiatric: A+Ox3, euthymic affect Results & Data Results & Data Vital Signs (Past 12 Hours) Vital Signs Temp Pulse Pulse Resp BP BP Pulse Ox 07/27/23 11:25 36.8 C 18 L 18 131/82 97 07/27/23 09:12 69 16 140/82 93 07/27/23 08:00 84 07/27/23 06:55 36.7 C 65 18 122/64 91 07/27/23 03:28 36.5 C 87 20 136/87 92 07/27/23 03:16 37.6 C O2 Del Method 07/27/23 11:25 Room Air 07/27/23 09:12 Room Air 07/27/23 08:00 07/27/23 06:55 Room Air 07/27/23 03:28 Room Air 07/27/23 03:16 Laboratory Results Laboratory Results WBC 0.20 K/ul (4.8-10.8) L* 07/27/23 06:50 RBC 2.87 M/uL (4.70-6.10) L 07/27/23 06:50 Hgb 8.4 g/dl (14.0-18.0) L 07/27/23 06:50 Hct 24.5 % (42.0-52.0) L 07/27/23 06:50 MCV 85.4 fL (80.0-100.0) 07/27/23 06:50 MCH 29.3 pg (25.0-34.0) 07/27/23 06:50 MCHC 34.3 g/dL (32.0-36.0) 07/27/23 06:50 RDW Std Deviation 41.6 fL (36.4-46.3) 07/27/23 06:50 RDW Coeff of Anna 13.3 % (11.5-14.5) 07/27/23 06:50 Plt Count 12 K/uL (130-400) L* 07/27/23 06:50 MPV 10.2 fL (9.4-12.4) 07/27/23 06:50 Immature Gran % (Auto) Cancelled 07/27/23 06:50 Neut % (Auto) Cancelled 07/27/23 06:50 Lymph % (Auto) Cancelled 07/27/23 06:50 [place] % (Auto) Cancelled 07/27/23 06:50 Eos % (Auto) Cancelled 07/27/23 06:50 Baso % (Auto) Cancelled 07/27/23 06:50 Neut # (Auto) Cancelled 07/27/23 06:50 Lymph # (Auto) Cancelled 07/27/23 06:50 [place] # (Auto) Cancelled 07/27/23 06:50 Eos # (Auto) Cancelled 07/27/23 06:50 Baso # (Auto) Cancelled 07/27/23 06:50 Immature Gran # (Auto) Cancelled 07/27/23 06:50 Neutrophils % (Manual) Cancelled 07/27/23 06:50 Band Neutrophils % Cancelled 07/27/23 06:50 Lymphocytes % (Manual) Cancelled 07/27/23 06:50 Prolymphocyte % Cancelled 07/27/23 06:50 Reactive Lymphs % (Man) Cancelled 07/27/23 06:50 Monocytes % (Manual) Cancelled 07/27/23 06:50 Eosinophils % (Manual) Cancelled 07/27/23 06:50 Basophils % (Manual) Cancelled 07/27/23 06:50 Metamyelocytes % (Man) Cancelled 07/27/23 06:50 Myelocytes % (Man) Cancelled 07/27/23 06:50 Promyelocytes % (Man) Cancelled 07/27/23 06:50 Blast Cells % (Manual) Cancelled 07/27/23 06:50 Plasma Cell % (Manual) Cancelled 07/27/23 06:50 Other Cells % Cancelled 07/27/23 06:50 Nucleated RBC % Cancelled 07/27/23 06:50 Neutrophils # (Manual) Cancelled 07/27/23 06:50 Band Neutrophils # Cancelled 07/27/23 06:50 Total Absolute Neuts Cancelled 07/27/23 06:50 Lymphocytes # (Manual) Cancelled 07/27/23 06:50 Prolymphocyte # Cancelled 07/27/23 06:50 Reactive Lymphs # Cancelled 07/27/23 06:50 Total Abs Lymphocytes Cancelled 07/27/23 06:50 Monocytes # (Manual) Cancelled 07/27/23 06:50 Eosinophils # (Manual) Cancelled 07/27/23 06:50 Basophils # (Manual) Cancelled 07/27/23 06:50 Metamyelocytes # (Man) Cancelled 07/27/23 06:50 Myelocytes # (Manual) Cancelled 07/27/23 06:50 Promyelocytes # (Man) Cancelled 07/27/23 06:50 Blast Cells # (Man) Cancelled 07/27/23 06:50 Plasma Cell # (Manual) Cancelled 07/27/23 06:50 Other Cells # Cancelled 07/27/23 06:50 Nucleated RBCs # (Man) Cancelled 07/27/23 06:50 Hypersegmented Neuts Cancelled 07/27/23 06:50 Hyposegmented Neuts Cancelled 07/27/23 06:50 Hypogranular Neuts Cancelled 07/27/23 06:50 Large Granular Lymphs Cancelled 07/27/23 06:50 # Lrg Granular Lymphs Cancelled 07/27/23 06:50 Hairy Cells Cancelled 07/27/23 06:50 Smudge Cells Cancelled 07/27/23 06:50 Toxic Granulation Cancelled 07/27/23 06:50 Toxic Vacuolation Cancelled 07/27/23 06:50 Dohle Bodies Cancelled 07/27/23 06:50 Becky Rods Cancelled 07/27/23 06:50 Platelet Estimate Signific. Decreased (Normal) L 07/25/23 22:32 Hypogranular Platelets Cancelled 07/27/23 06:50 Giant Platelets Cancelled 07/27/23 06:50 Platelet Satelliting Cancelled 07/27/23 06:50 RBC Morphology Cancelled 07/27/23 06:50 Polychromasia Cancelled 07/27/23 06:50 Hypochromasia Cancelled 07/27/23 06:50 Poikilocytosis Cancelled 07/27/23 06:50 Basophilic Stippling Cancelled 07/27/23 06:50 Anisocytosis Cancelled 07/27/23 06:50 Microcytosis Cancelled 07/27/23 06:50 Macrocytosis Cancelled 07/27/23 06:50 Spherocytes Cancelled 07/27/23 06:50 Pappenheimer Bodies Cancelled 07/27/23 06:50 Sickle Cells Cancelled 07/27/23 06:50 Target Cells Cancelled 07/27/23 06:50 Tear Drop Cells Cancelled 07/27/23 06:50 Ovalocytes Cancelled 07/27/23 06:50 Stomatocytes Cancelled 07/27/23 06:50 [place] Bodies Cancelled 07/27/23 06:50 Echinocytes Cancelled 07/27/23 06:50 Acanthocytes (Spur) Cancelled 07/27/23 06:50 Rouleaux Cancelled 07/27/23 06:50 RBC Agglutinates Cancelled 07/27/23 06:50 Schistocytes Cancelled 07/27/23 06:50 Sezary Cell Cancelled 07/27/23 06:50 PT 12.1 Seconds (9.0-12.0) H 07/24/23 10:13 INR 1.1 (0.9-1.1) 07/24/23 10:13 APTT 45 Seconds (21-31) H 07/24/23 10:13 PTT Ratio 1.6 07/24/23 10:13 Sodium 134 mmol/L (136-145) L 07/27/23 06:50 Potassium 4.0 mmol/L (3.5-5.1) 07/27/23 06:50 Chloride 100 mmol/L (98-107) 07/27/23 06:50 Carbon Dioxide 29 mmol/L (21-32) 07/27/23 06:50 Anion Gap 5 (3-11) 07/27/23 06:50 BUN 11 mg/dl (6-23) 07/27/23 06:50 Creatinine 0.70 mg/dl (0.6-1.4) 07/27/23 06:50 Est Cr Clr Drug Dosing 109.3 ml/min 07/27/23 06:50 Est GFR ( Amer) 111.6 ml/min 07/27/23 06:50 Est GFR (Non-Af Amer) 96.3 ml/min 07/27/23 06:50 BUN/Creatinine Ratio 15.7 (10-20) 07/27/23 06:50 Glucose 136 mg/dl (70-99(Fasting)) H 07/27/23 06:50 POC Glucose 133 mg/dl (70-99) H 07/27/23 11:30 Estimat Average Glucose 163 mg/dl 07/25/23 07:29 Hemoglobin A1c 7.3 % (4.5-5.6) H 07/25/23 07:29 Lactate 1.2 mmol/L (0.4-2.0) 07/24/23 10:13 Uric Acid 3.4 mg/dl (2.6-7.2) 07/24/23 10:13 Calcium 7.6 mg/dl (8.6-10.3) L 07/27/23 06:50 Ionized Calcium 1.15 mmol/L (1.12-1.32) 07/26/23 07:57 Phosphorus 3.4 mg/dl (2.5-4.9) 07/26/23 07:57 Magnesium 2.0 mg/dl (1.7-2.4) 07/26/23 07:57 Total Bilirubin 0.6 mg/dl (0.2-1.0) 07/27/23 06:50 Direct Bilirubin 0.2 mg/dl (0-0.2) 07/24/23 10:13 AST 31 U/L (13-39) 07/27/23 06:50 ALT 35 U/L (7-52) 07/27/23 06:50 Alkaline Phosphatase 170 U/L (34-104) H 07/27/23 06:50 Troponin I High Sens 31.0 pg/ml (0-20) H 07/24/23 15:04 Total Protein 5.1 gm/dl (6.0-8.3) L 07/27/23 06:50 Albumin 2.8 gm/dl (3.4-5.0) L 07/27/23 06:50 Globulin 2.3 gm/dl (2.5-4.0) L 07/27/23 06:50 Albumin/Globulin Ratio 1.2 (0.9-2) 07/27/23 06:50 Procalcitonin 0.58 ng/ml (0-0.5) H 07/24/23 10:13 Urine Color Dark Yellow 07/24/23 13:01 Urine Appearance Clear (Clear) 07/24/23 13:01 Urine pH 5.5 (4.5-7.5) 07/24/23 13:01 Ur Specific [place] 1.028 (1.000-1.030) 07/24/23 13:01 Urine Protein 2+ (Negative) H 07/24/23 13:01 Urine Glucose (UA) Negative (Negative) 07/24/23 13:01 Urine Ketones Trace (Negative) H 07/24/23 13:01 Urine Blood Negative (Negative) 07/24/23 13:01 Urine Nitrite Negative (Negative) 07/24/23 13:01 Urine Bilirubin 1+ (Negative) H 07/24/23 13:01 Urine Urobilinogen Negative (Negative) 07/24/23 13:01 Ur Leukocyte Esterase Negative (Negative) 07/24/23 13:01 Urine WBC (Auto) 1-5 /hpf (0-5) 07/24/23 13:01 Urine RBC (Auto) 0-4 /hpf (0-4) 07/24/23 13:01 U Hyaline Cast (Auto) 10-30 /lpf (0-5) H 07/24/23 13:01 U Epithel Cells (Auto) >30 /lpf (0-5) H 07/24/23 13:01 Urine Bacteria (Auto) Negative (Negative) 07/24/23 13:01 Ur Renal Epithelial Cell Not Reportable 07/24/23 13:01 Random Vancomycin 12.6 mcg/ml (10-20) 07/25/23 15:04 Adenovirus (PCR) Not Detected (NotDetected) 07/24/23 11:09 Anaplasma Smear See Comment 07/24/23 15:04 Babesia Smear See Comment 07/24/23 15:04 B. pertussis DNA (PCR) Not Detected (NotDetected) 07/24/23 11:09 B.parapertussis DNA PCR Not Detected (NotDetected) 07/24/23 11:09 Lyme Disease IgG Ab Negative (Negative) 07/24/23 10:13 Lyme Disease IgM Ab Negative (Negative) 07/24/23 10:13 C. pneumoniae DNA (PCR) Not Detected (NotDetected) 07/24/23 11:09 Coronavirus OC43 (PCR) Not Detected (NotDetected) 07/24/23 11:09 Coronavirus HKU1 (PCR) Not Detected (NotDetected) 07/24/23 11:09 Coronavirus 229E (PCR) Not Detected (NotDetected) 07/24/23 11:09 SARS-CoV-2 (PCR) NEGATIVE (Negative) 07/24/23 11:09 SARS-CoV-2 (PCR) Not Detected (NotDetected) 07/24/23 11:09 Coronavirus NL63 (PCR) Not Detected (NotDetected) 07/24/23 11:09 Human Metapneumovir PCR Not Detected (NotDetected) 07/24/23 11:09 Influenza Type A (PCR) Negative (Neg) 07/24/23 11:09 Influenza Type A (PCR) Not Detected (NotDetected) 07/24/23 11:09 Influenza Type B (PCR) Negative (Neg) 07/24/23 11:09 Influenza Type B (PCR) Not Detected (NotDetected) 07/24/23 11:09 M. pneumoniae (PCR) Not Detected (NotDetected) 07/24/23 11:09 Parainfluenza 1 (PCR) Not Detected (NotDetected) 07/24/23 11:09 Parainfluenza 2 (PCR) Not Detected (NotDetected) 07/24/23 11:09 Parainfluenza 3 (PCR) Not Detected (NotDetected) 07/24/23 11:09 Parainfluenza 4 (PCR) Not Detected (NotDetected) 07/24/23 11:09 RSV (RT-PCR) Negative (Neg) 07/24/23 11:09 RSV (PCR) Not Detected (NotDetected) 07/24/23 11:09 Entero/Rhino (PCR) Not Detected (NotDetected) 07/24/23 11:09 Blood Parasites ID Cancelled 07/27/23 06:50 Blood Type O Positive 07/24/23 10:13 Antibody Screen NEGATIVE 07/24/23 10:13 Crossmatch See Detail 07/24/23 10:13 Impressions Chest X-Ray 07/24/23 09:51 XR chest 1V portable CLINICAL HISTORY: Sepsis. COMPARISON STUDY: Chest CT June 29, 2023. Chest radiograph July 03. FINDINGS: A right internal jugular [id number] is in place. There is no pneumothorax or pleural effusion. Cardiomegaly is unchanged. There is no evidence for pulmonary edema. There is no consolidation. Mild elevation of the right hemidiaphragm is unchanged. Prominent gas-filled loop of small bowel within the upper abdomen is partially imaged. IMPRESSION: 1. No acute cardiopulmonary findings. No change in appearance of the chest. 2. Partially imaged gas-filled small bowel loop within the upper abdomen. ACT 112: Negative or not required by law. Electronically signed by: Rupert Brenner M.D. 07/24/2023 10:[address] 07/24/23 12:55 CT head/brain wo con CLINICAL HISTORY: Fall, head trauma, plt count 4 Technique: Contiguous axial CT images of the head were acquired from the base of the skull to the vertex without intravenous contrast administration. Images were viewed in brain, subdural and bone windows. Automated dose lowering techniques and/or adjustment according to patient size were utilized for this exam. Comparison: None available at the time of this dictation. Findings: The ventricles, basal cisterns, and cerebral sulci are normal. There is no acute intracranial hemorrhage or evidence of acute territorial infarction. Neither mass effect, shift of the midline structures, nor abnormal extra-axial fluid col lections are shown. There is opacification of the right maxillary sinus and ethmoid sinuses. The orbits appear normal. There are no acute fractures of the calvaria or scalp swelling. Impression: No acute intracranial hemorrhage, no evidence of acute territorial infarction or other acute intracranial disease process. ACT 112: Negative or not required by law. Electronically signed by: Dallas Joyner M.D. 07/24/2023 1:29 PM KUB X-Ray 07/25/23 15:36 XR KUB/Abdomen 1 view CLINICAL HISTORY: prominent small bowel loop on Chest xray TECHNIQUE: 1 view of the abdomen was obtained. Comparison: Comparison is made to chest x-ray 07/24/2023 FINDINGS: Lung bases are unremarkable. The osseous structures are grossly unremarkable. The bowel gas pattern is nonobstructive. Small stool burden is seen. Previously noted gas-filled loop of bowel likely represent large bowel. IMPRESSION: Previously noted gas-filled loop of bowel in the chest x-ray likely represents gas distended large bowel. No small bowel obstruction is seen. ACT 112: Negative or not required by law. Electronically signed by: Dallas Joyner M.D. 07/25/2023 4:51 PM (6) Atrial fibrillation Atrial fibrillation type: unspecified Qualified Code(s): I48.91 - Unspecified atrial fibrillation (7) Anemia Anemia type: unspecified type Qualified Code(s): D64.9 - Anemia, unspecified
[2023-07-27] MEDS: TAMSULOSIN HCL 0.4 MG CAP PO SCH (20:30)
[2023-07-27] MEDS: FINASTERIDE 5 MG TAB PO SCH (20:30)
[2023-07-28] MEDS: MEROPENEM 500 MG in SYRINGE 0 ML IV SCH ×4 (03:00→21:00)
[2023-07-28] MEDS: PANTOprazole 40 MG TAB PO SCH (05:48)
[2023-07-28 07:31] LABS: Hematocrit (blood only) 28.6 % (42.0-52.0); Hemoglobin 9.8 g/dl (14.0-18.0); Mean Corpuscular Hemoglobin 29.4 pg (25.0-34.0); Mean Corpuscular Hgb Conc 34.3 g/dL (32.0-36.0); Mean Corpuscular Volume 85.9 fL (80.0-100.0); Mean Platelet Volume 10.4 fL (9.4-12.4); Platelet Count 6 K/uL (130-400); RDW Coefficient of Variation 13.4 % (11.5-14.5); RDW Standard Deviation 42.1 fL (36.4-46.3); Red Blood Count 3.33 M/uL (4.70-6.10); White Blood Count 0.16 K/ul (4.8-10.8)
[2023-07-28 07:32] LABS: Albumin Globulin Ratio 1.2 (0.9-2); Albumin Level 3.2 gm/dl (3.4-5.0); BUN Creatinine Ratio 15.8 (10-20); Bilirubin,Total 0.8 mg/dl (0.2-1.0); Calcium 8.1 mg/dl (8.6-10.3); Creatinine Clr Calc Pharmacy 100.7 ml/min; Est GFR (African American) 107.9 ml/min; Est GFR (Non-African American) 93.1 ml/min; Globulin 2.6 gm/dl (2.5-4.0); Potassium 3.9 mmol/L (3.5-5.1); Total Protein 5.8 gm/dl (6.0-8.3)
[2023-07-28] MEDS ORDERED: FILGRASTIM 480 MCG/1.6 ML VIAL SQ ONE (08:00)
[2023-07-28] MEDS: INSULIN ASPART PER UNIT CHARGE SC SCH ×4 (08:34→21:15)
[2023-07-28] MEDS: ACETAMINOPHEN 325 MG TAB PO PRN ×3 (08:37→21:14)
[2023-07-28] MEDS: ACYCLOVIR 400 MG TAB PO SCH ×2 (08:41→21:19)
[2023-07-28] MEDS: AMIODARONE 200 MG TAB PO SCH (08:42)
[2023-07-28] MEDS: amLODIPine BESYLATE 5 MG TAB PO SCH (08:43)
[2023-07-28] MEDS: CHLORHEXIDINE GLUCONATE 0.12% 480 ML MT SCH ×2 (08:43→21:18)
[2023-07-28] MEDS: ESCITALOPRAM OXALATE 10 MG TAB PO SCH (08:44)
[2023-07-28] MEDS: FUROSEMIDE 40 MG TAB PO SCH (08:45)
[2023-07-28] MEDS: GABAPENTIN 100 MG CAP PO SCH ×3 (08:45→21:18)
[2023-07-28] MEDS: LOSARTAN POTASSIUM 50 MG TAB PO SCH (08:46)
[2023-07-28] MEDS: CEROVITE ADV FORMULA TAB PO SCH (08:46)
[2023-07-28] MEDS: NYSTATIN SUSP 500,000 U/5 ML UDC PO SCH ×2 (08:47→21:15)
[2023-07-28] MEDS: ROSUVASTATIN CALCIUM 10 MG TAB PO SCH (08:47)
[2023-07-28] MEDS: POTASSIUM CHLORIDE 10 MEQ TABCR PO SCH (08:47)
[2023-07-28] MEDS ORDERED: CASPOFUNGIN 70 MG in SODIUM CHLORIDE 0.9% 250 ML IV SCH (10:00)
--- NOTE | 2023-07-28 11:10 | Hospitalist Progress Note ---
Date of Service July 28, 2023 Assessment & Plan (1) Sepsis: (2) Pancytopenia: (3) Hairy leukoplakia of tongue: (4) AML (acute myeloid leukemia) in relapse: (5) Neutropenic fever: Plan: History of relapsed AML; chemotherapy and on hold since April 2023 secondary to pancytopenia. Last chemotherapy was in between April 08 to april 11, 2023 He was recently started on 480 mcg G-CSF twice a week due to persistent neutropenia. His last dose was on July 24, 2023. Plan is to give twice a week dose on Mondays and . Patient presented to the ED with fever and chills. He was on Levaquin as per infectious disease as well as acyclovir and Cresemba for prophylaxis against infection. Chest x-rayno acute findings. UA not suggestive of infection Lyme screening test negative Blood cultureno growth in 48 hours. Fungal culture no growth till date CMV, Rickettsial panel anaplasmosis pending histo galactomannan pending Biofire respiratory panel negative Labs reviewed; WBC count of 0.2. Platelet count of 2000 Status post 6 units of platelets and 2 units of packed RBC during the hospitalization Continue on meropenem. Given prolonged neutropenia with febrile episodes; started on caspofungin to provide fungal coverage. Repeat blood culture ordered. Will give 1 dose of Neupogen 480 as per his outpatient oncology's plan Will consult infectious disease to guide treatment given patient's prolonged neutropenia and frequent febrile episodes. Neutropenic precautions Home prophylaxis with levaquin, acyclovir and Cresemba. Holding ppx levaquin for now. (6) Atrial fibrillation: Plan: - Rate control with amiodarone - Not on anticoagulation due to thrombocytopenia (7) Anemia: Plan: - Monitoring counts - Transfusion support as necessary (8) Diabetes mellitus, type 2: Plan: - Holding metformin, ISS with accuchecks achs -A1C of 7.3 (9) Hyperlipidemia: Plan: - Cont statin therapy (10) Hypertension: Plan: Lasix and losartan resumed. DVT ppx: teds, scds FEN/GI: HH/DM diet CODE: FULL I discussed treatment plan with patient's and son at bedside on July 27, 2023. I also encouraged them to discuss about goals of care and provided information. Answers questions/queries. Time spent evaluating patient, direct bedside care, chart review, placing orders, interpretation of diagnostic studies, discussion with consultants, patient, and family members, as well as other required patient management activities is 50 minutes. Please note the above document was generated using voice recognition software. It may contain grammatical, syntax or spelling errors. Any formal questions or concerns about the content, text or information contained within the body of this dictation should be directly addressed to the provider for clarification Admission and Anticipated Discharge Date Admission Date: July 24, 2023 Subjective Patient seen and examined at bedside. Overnight, he had fever with chills. His temperature has also increased this morning. Vital remained stable. He denies sore throat, cough, shortness of breath, abdominal pain or urinary symptoms. Denies any new rash or skin changes. Review of Systems Review of Systems: All systems reviewed & are unremarkable except as noted in Subjective Physical Exam Physical Exam: Constitutional: WD/WN, vitals as above, NAD, sitting up in bed, pleasant, conversing easily Eyes-subconjunctival hemorrhage on left eye Mouthdarkish discoloration of the tongue. Oral mucosa moist otherwise. Respiratory: normal respiratory effort, lungs clear to auscultation, no wheeze, rales, rhonchi. Normal insp/exp effort, no accessory muscle use Cardiovascular: RRR, no murmur, no edema Vessels: no JVD or carotid bruit Chest: normal inspection of chest Abdomen: normal bowel sounds, soft, nontender, no hepatosplenomegaly Musculoskeletal: no cyanosis or clubbing, extremities motor strength 5/5 Skin: no rashes, warm and dry normal turgor Neurologic: PERRL, EOMI, accommodation nl, no face palsy, no dysarthria CN's II- XI intact bilaterally and moves all extremities Psychiatric: A+Ox3, euthymic affect Results & Data Results & Data Vital Signs (Past 12 Hours) Vital Signs Temp Pulse Pulse Resp BP BP Pulse Ox 07/28/23 10:53 37.5 C 76 18 120/74 94 07/28/23 10:23 36.7 C 72 18 118/70 94 07/28/23 10:08 38.2 C H 07/28/23 10:07 38.2 C H 73 17 119/81 94 07/28/23 09:50 37.3 C 80 17 125/80 94 07/28/23 07:23 38.6 C H 88 19 141/89 H 94 07/28/23 03:00 36.7 C 62 16 124/69 07/28/23 00:12 81 07/28/23 00:06 36.9 C 07/27/23 23:10 38.9 C H 80 18 130/77 94 O2 Del Method 07/28/23 10:53 07/28/23 10:23 07/28/23 10:08 07/28/23 10:07 07/28/23 09:50 07/28/23 07:23 Room Air 07/28/23 03:00 Room Air 07/28/23 00:12 07/28/23 00:06 07/27/23 23:10 Room Air (6) Atrial fibrillation Atrial fibrillation type: unspecified Qualified Code(s): I48.91 - Unspecified atrial fibrillation (7) Anemia Anemia type: unspecified type Qualified Code(s): D64.9 - Anemia, unspecified
[2023-07-28] MEDS: oxyCODONE HCL IR 5 MG TAB (IMMEDIATE RELEASE) PO PRN (15:54)
[2023-07-28] MEDS: HEPARIN 100 UNIT/ML 5ML FLUSH FLUSH PRN (15:54)
[2023-07-28] MEDS: TAMSULOSIN HCL 0.4 MG CAP PO SCH (21:18)
[2023-07-28] MEDS: FINASTERIDE 5 MG TAB PO SCH (21:18)
[2023-07-29] MEDS: MEROPENEM 500 MG in SYRINGE 0 ML IV SCH ×4 (02:25→20:37)
[2023-07-29] MEDS: oxyCODONE HCL IR 5 MG TAB (IMMEDIATE RELEASE) PO PRN (05:07)
[2023-07-29] MEDS: PANTOprazole 40 MG TAB PO SCH (05:08)
[2023-07-29] MEDS: HEPARIN 100 UNIT/ML 5ML FLUSH FLUSH PRN (06:14)
[2023-07-29 06:36] LABS: Hematocrit (blood only) 23.9 % (42.0-52.0); Hemoglobin 8.1 g/dl (14.0-18.0); Mean Corpuscular Hemoglobin 29.2 pg (25.0-34.0); Mean Corpuscular Hgb Conc 33.9 g/dL (32.0-36.0); Mean Corpuscular Volume 86.3 fL (80.0-100.0); Mean Platelet Volume 10.1 fL (9.4-12.4); Platelet Count 9 K/uL (130-400); RDW Coefficient of Variation 13.5 % (11.5-14.5); RDW Standard Deviation 42.6 fL (36.4-46.3); Red Blood Count 2.77 M/uL (4.70-6.10); White Blood Count 0.21 K/ul (4.8-10.8)
[2023-07-29 06:54] LABS: Albumin Globulin Ratio 1.2 (0.9-2); Albumin Level 2.8 gm/dl (3.4-5.0); BUN Creatinine Ratio 18.3 (10-20); Bilirubin,Total 0.7 mg/dl (0.2-1.0); Calcium 7.6 mg/dl (8.6-10.3); Creatinine Clr Calc Pharmacy 107.8 ml/min; Est GFR (Non-African American) 95.7 ml/min; Globulin 2.3 gm/dl (2.5-4.0); Potassium 4.1 mmol/L (3.5-5.1); Total Protein 5.1 gm/dl (6.0-8.3)
[2023-07-29] MEDS: ACETAMINOPHEN 325 MG TAB PO PRN ×3 (08:06→22:48)
[2023-07-29] MEDS: ACYCLOVIR 400 MG TAB PO SCH ×2 (08:25→20:39)
[2023-07-29] MEDS: ESCITALOPRAM OXALATE 10 MG TAB PO SCH (08:26)
[2023-07-29] MEDS: AMIODARONE 200 MG TAB PO SCH (08:26)
[2023-07-29] MEDS: amLODIPine BESYLATE 5 MG TAB PO SCH (08:27)
[2023-07-29] MEDS: FUROSEMIDE 40 MG TAB PO SCH (08:28)
[2023-07-29] MEDS: POTASSIUM CHLORIDE 10 MEQ TABCR PO SCH (08:28)
[2023-07-29] MEDS: ROSUVASTATIN CALCIUM 10 MG TAB PO SCH (08:28)
[2023-07-29] MEDS: NYSTATIN SUSP 500,000 U/5 ML UDC PO SCH ×2 (08:29→20:38)
[2023-07-29] MEDS: CEROVITE ADV FORMULA TAB PO SCH (08:29)
[2023-07-29] MEDS: GABAPENTIN 100 MG CAP PO SCH ×3 (08:29→20:40)
[2023-07-29] MEDS: LOSARTAN POTASSIUM 50 MG TAB PO SCH (08:30)
[2023-07-29] MEDS: CHLORHEXIDINE GLUCONATE 0.12% 480 ML MT SCH ×2 (08:30→20:38)
--- NOTE | 2023-07-29 08:32 | XRay Report ---
XR chest 1V portable CLINICAL HISTORY: Fever. Evaluate for pneumonia. COMPARISON STUDY: Chest CT June 29, 2023. Chest radiograph July 24, 2023. FINDINGS: Right internal jugular [id number] is unchanged in position. Cardiomegaly is unchanged. T here is no pneumothorax or pleural effusion. There is no consolidation to suggest pneumonia. Pulmonar y vascularity is normal. The appearance of the chest is unchanged. IMPRESSION: No acute cardiopulmonary findings. No consolidation to suggest pneumonia. ACT 112: Negative or not required by law. Electronically signed by: Rupert Brenner M.D. 07/29/2023 8:30 AM
[2023-07-29] MEDS: INSULIN ASPART PER UNIT CHARGE SC SCH ×4 (08:42→20:40)
[2023-07-29] MEDS ORDERED: CASPOFUNGIN 50 MG in SODIUM CHLORIDE 0.9% 250 ML IV SCH (09:00)
--- NOTE | 2023-07-29 11:06 | Infectious Disease Consult ---
Date of Service July 29, 2023 Telehealth Information I performed this visit using a real-time telehealth connection between my location and the patients location ([facility]). After connecting through interactive tele-video, patient was identified by name and date of and/or wristband check.Patient (or authorized healthcare aircraft sales representative) was informed that this was a telemedicine visit and it was being conducted confidentially over secure lines. My office door was closed and no one else was present in the room with me.Patient (or authorized healthcare aircraft sales representative) provided consent to proceed with the visit, expressed an understanding of privacy and security of the telemedicine visit, and gave permission to have a hospital aircraft sales representative in the room in order to assist with the visit and to conduct portions of the visit, as needed. I informed the patient (or authorized healthcare aircraft sales representative) that I reviewed their record and presented the opportunity for them to ask any questions regarding the visit today. The patient agreed to participate. Assessment & Plan (1) Neutropenic fever: (2) Port-A-Cath in place: (3) AML (acute myeloid leukemia) in relapse: (4) Pancytopenia: Plan - We agree with IV meropenem for now. Since patient has been on Cresemba at home, I would recommend continuing on it and stopping IV caspofungin. - Given his recurrent febrile neutropenia despite being on appropriate prophylactic antibiotics/antifungals, I would be concerned about IV port infection. 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 - Please continue on Acyclovir for prophylaxis. - Thank you for consulting ID. We will continue to follow. History of Present Illness History of Present Illness Mr. Oesi is a 68-year-old man with medical history of relapsed AML (not on chemotherapy since April 2023 because of persistent pancytopenia & requiring frequent blood/platelet transfusion), type 2 diabetes, heart failure with reduced ejection fraction, persistent A-fib, HTN, and BPH who was admitted to [facility] on 07/24 because of fever and chills. He mentioned that on the morning of the day of presentation, he started having generalized fatigue with fever and chills which prompted him to come to the emergency department. He recently got discharged from the hospital (on Jul 08) after a 1 week stay for febrile neutropenia and was found to have ESBL Klebsiella bacteremia. At that time, CT scan of the abdomen and pelvis showed no acute abnormalities except for diverticulosis (but no diverticulitis), nonobstructive nephrolithiasis with no acute abnormalities in the chest except for pulmonary hypertension and mild cardiomegaly. Since the Klebsiella was sensitive to Levaquin which he has been on since before that admission, we were concerned about source issue particularly IV port infection. Since he was transfusion dependent, we decided to spare the line and was sent out on his prophylactic antimicrobials including Levaquin. This time, he is coming back with the same problem but his blood Cx has been negative so far. During today's encounter, he reported that he had a fever of 38 this morning but no other specific symptoms. ID team was consulted to help in the management of febrile neutropenia. Allergies Allergy/AdvReac Type Severity Reaction Status Date / Time bee venom protein (honey bee) Allergy Mild SWELLING Verified 07/22/23 09:54 hydrocodone AdvReac Unknown NAUSEA Verified 07/22/23 09:54 nitrofurantoin AdvReac Headache Verified 07/22/23 09:54 Home Medications Medication Instructions Recorded Confirmed Type finasteride 5 mg tablet 5 mg PO HS 09/18/18 07/24/23 History omeprazole 20 mg capsule,delayed 20 mg PO QAM 05/08/21 07/24/23 History release rosuvastatin 10 mg tablet 10 mg PO QAM 05/08/21 07/24/23 History losartan 100 mg tablet 100 mg PO QAM 05/10/21 07/24/23 History tamsulosin 0.4 mg capsule (Flomax) 4 mg PO HS 05/10/21 07/24/23 History acyclovir 400 mg tablet 400 mg PO BID 01/27/22 07/24/23 History multivitamin with minerals 1 tab PO QAM 01/27/22 07/24/23 History ondansetron 4 mg disintegrating 4 mg translingual Q6 PRN Nausea 02/05/22 07/24/23 History tablet furosemide 40 mg tablet 40 mg PO DAILY #30 tabs 02/08/22 07/24/23 Rx potassium chloride 10 mEq 10 meq PO DAILY #30 tabs 02/08/22 07/24/23 Rx tablet,extended release(part/cryst) eplerenone 25 mg tablet 25 mg PO DAILY 11/29/22 07/24/23 History tadalafil 5 mg tablet 5 mg PO DAILY PRN Muscle Pain 11/29/22 07/24/23 History escitalopram oxalate 10 mg tablet 10 mg PO DAILY 12/09/22 07/24/23 History isavuconazonium sulfate 186 mg 372 mg PO BID 12/09/22 07/24/23 History capsule (Cresemba) sildenafil 0 mg PO DIRECTED PRN Sexual 12/09/22 07/24/23 History Activity amiodarone 200 mg tablet 200 mg PO DAILY 12/31/22 07/24/23 History amlodipine 2.5 mg tablet 2.5 mg PO DAILY 12/31/22 07/24/23 History metformin 500 mg tablet,extended 1,000 mg PO BID 12/31/22 07/24/23 History release 24 hr nystatin 100,000 unit/mL oral 5 ml PO BID 06/25/23 07/24/23 History suspension oxycodone 5 mg tablet 5 mg PO Q8H PRN Pain 06/25/23 07/24/23 History chlorhexidine gluconate 0.12 % 15 ml buccal BID #15 mL 07/08/23 07/24/23 Rx mouthwash (Peridex) levofloxacin 750 mg tablet 750 mg PO DAILY #30 tabs 07/08/23 07/24/23 Rx gabapentin 100 mg capsule 100 mg PO TID 07/24/23 07/24/23 History Patient History Medical History AML (acute myeloblastic leukemia) Enlargement of aortic root Follows with Dr. Sibley Per December 2019 ECHO - Aortic root and proximal ascending aorta are mildly enlarged (4.3/4.1 cm respectively) Diabetes mellitus, type 2 DENIES NEUROPATHY History of melanoma PAST HISTORY GERD (gastroesophageal reflux disease) Hypertension Hyperlipidemia Atrial fibrillation Paroxysmal - very rare Per 09/21/20 cardio note- had a fib episode February 2020 after shingles vaccine and Jun 2020 - both episodes lasted several hours- resolved after taking Flecainide as prescribed (takes PRN per cardio instructions) [id number] score =3 for risk factors of age of 64, HTN, and DM2 per cardio records- patient not on AC secondary to bleeding complications in the past (Next cardio visit Sep 2021) Surgical History History of removal of cyst off finger History of colonoscopy History of cataract surgery bilt History of biopsy of bladder History of melanoma excision Family History Other Hypertension No family history of adverse response to anesthesia Social History Smoking Status: Former smoker Tobacco Type: Cigarettes Cigarettes Per Day: QUIT IN 1987; Second Hand Exposure: No; Do You Dip or Chew Tobacco: No; Tobacco Cessation Education Requested by Patient: No Hx Alcohol Use: No Hx Substance Use: No Preferred Language: Kazakh Communication Ability: Effective Analyst Business Analysis Required: No Beliefs That Will Affect Care: None marital status: Current Living Situation: Spouse How many Children do You have: 1 Other Information That Helps Us Care for You: No Feels Safe at Home: Yes Safety Concerns: Feels Safe At This Time Assistive Devices: None Review of Systems Constitutional: Fatigue, fever and chills HEENT: no sore throat, no nasal discharge Cardiovascular: no chest pain, or palpitations Respiratory: no shortness of breath, no cough Gastrointestinal: No nausea, vomiting, diarrhea or abdominal pain : No dysuria or hesitancy, no urinary discharge Musculoskeletal/Skin: no muscle pain or rash Neurologic: no dizziness or headache Physical Exam Couldn't be obtained as the consult was performed via telemed. Results & Data Vital Signs (Past 12 Hours) Vital Signs Temp Pulse Pulse Resp BP BP Pulse Ox 07/29/23 10:51 36.8 C 67 18 104/68 94 07/29/23 10:20 36.5 C 63 18 103/66 95 07/29/23 09:20 36.7 C 65 18 105/66 96 07/29/23 08:50 36.8 C 74 18 106/67 94 07/29/23 08:35 36.8 C 81 19 109/69 98 07/29/23 08:12 38 C H 74 18 120/75 94 07/29/23 07:33 38.1 C H 74 18 120/75 92 07/29/23 03:23 37.8 C H 66 18 120/85 96 O2 Del Method 07/29/23 10:51 07/29/23 10:20 07/29/23 09:20 07/29/23 08:50 07/29/23 08:35 07/29/23 08:12 07/29/23 07:33 Room Air 07/29/23 03:23 Room Air Laboratory Results Microbiology: 07/24: Respiratory pathogen panel negative 07/24: Blood smear negative for both Babesia and Anaplasma 07/24: Anaplasma PCR pending 07/24: Babesia PCR pending 07/24: Ehrlichia DNA PCR pending 07/24: Q fever serology pending 07/24: Rickettsia and typhus fever serology pending 07/24: Beta D glucan pending 07/24: 2 sets of blood cultures negative to date 07/25: Urine histoplasma antigen pending 07/28: 2 sets of blood culture negative to date Diagnostic Findings CXR on 07/29: no acute cardiopulmonary changes.
--- NOTE | 2023-07-29 12:38 | Hospitalist Progress Note ---
Date of Service July 29, 2023 Assessment & Plan (1) Sepsis: (2) Pancytopenia: (3) Hairy leukoplakia of tongue: (4) AML (acute myeloid leukemia) in relapse: (5) Neutropenic fever: Plan: History of relapsed AML; chemotherapy and on hold since April 2023 secondary to pancytopenia. Last chemotherapy was in between April 08 to april 11, 2023 He was recently started on 480 mcg G-CSF twice a week due to persistent neutropenia. His last dose was on July 24, 2023. Plan is to give twice a week dose on Mondays and . Patient presented to the ED with fever and chills. He was on Levaquin as per infectious disease as well as acyclovir and Cresemba for prophylaxis against infection. Chest x-rayno acute findings. UA not suggestive of infection Lyme screening test negative Blood culture on July 24July 28no growth till date Fungal culture no growth till date CMV, Rickettsial panel anaplasmosis pending histo galactomannan pending [employer] respiratory panel negative Labs reviewed; continues to be leukopenic and thrombocytopenic Status post 8 units of platelets and 2 units of packed RBC during the hospitalization Status post Neupogen 480 mg on July 28, 2023 Continue on meropenem. Given prolonged neutropenia with febrile episodes; he was started on caspofungin. Discussed with infectious disease. Recommended to discontinue caspofungin and continue meropenem. Vancomycin was discontinued as blood culture and MRSA PCR is negative. Attempted to reach his oncologist by [place] text and call to discuss about further plan. AlSo, plan to discussed to remove Port-A-Cath if not being utilized as per infectious disease. Unable to get a hold of him. Will attempt again. Neutropenic precautions Home prophylaxis with levaquin, acyclovir and Cresemba. Holding ppx levaquin for now. (6) Atrial fibrillation: Plan: - Rate control with amiodarone - Not on anticoagulation due to thrombocytopenia (7) Anemia: Plan: - Monitoring counts - Transfusion support as necessary (8) Diabetes mellitus, type 2: Plan: - Holding metformin, ISS with accuchecks achs -A1C of 7.3 (9) Hyperlipidemia: Plan: - Cont statin therapy (10) Hypertension: Plan: Lasix and losartan resumed. DVT ppx: teds, scds FEN/GI: HH/DM diet CODE: FULL I discussed treatment plan with patient's and son at bedside on July 27, 2023. I also encouraged them to discuss about goals of care and provided information. Answers questions/queries. Time spent evaluating patient, direct bedside care, chart review, placing orders, interpretation of diagnostic studies, discussion with consultants, patient, and family members, as well as other required patient management activities is 50 minutes. Please note the above document was generated using voice recognition software. It may contain grammatical, syntax or spelling errors. Any formal questions or concerns about the content, text or information contained within the body of this dictation should be directly addressed to the provider for clarification Admission and Anticipated Discharge Date Admission Date: July 24, 2023 Subjective Patient seen and examined at bedside. He reports having fever overnight. He denies chills, cough, shortness of breath, abdominal pain. Review of Systems Review of Systems: All systems reviewed & are unremarkable except as noted in Subjective Physical Exam Physical Exam: Constitutional: WD/WN, vitals as above, NAD, sitting up in bed, pleasant, conversing easily Eyes-subconjunctival hemorrhage on left eye Mouthdarkish discoloration of the tongue. Oral mucosa moist otherwise. Respiratory: normal respiratory effort, lungs clear to auscultation, no wheeze, rales, rhonchi. Normal insp/exp effort, no accessory muscle use Cardiovascular: RRR, no murmur, no edema Vessels: no JVD or carotid bruit Chest: normal inspection of chest Abdomen: normal bowel sounds, soft, nontender, no hepatosplenomegaly Musculoskeletal: no cyanosis or clubbing, extremities motor strength 5/5 Skin: no rashes, warm and dry normal turgor Neurologic: PERRL, EOMI, accommodation nl, no face palsy, no dysarthria CN's II- XI intact bilaterally and moves all extremities Psychiatric: A+Ox3, euthymic affect Results & Data Results & Data Vital Signs (Past 12 Hours) Vital Signs Temp Pulse Pulse Resp BP BP Pulse Ox 07/29/23 12:10 36.8 C 65 18 103/58 L 94 07/29/23 10:51 36.8 C 67 18 104/68 94 07/29/23 10:20 36.5 C 63 18 103/66 95 07/29/23 09:20 36.7 C 65 18 105/66 96 07/29/23 08:50 36.8 C 74 18 106/67 94 07/29/23 08:35 36.8 C 81 19 109/69 98 07/29/23 08:12 38 C H 74 18 120/75 94 07/29/23 07:33 38.1 C H 74 18 120/75 92 07/29/23 03:23 37.8 C H 66 18 120/85 96 O2 Del Method 07/29/23 12:10 07/29/23 10:51 07/29/23 10:20 07/29/23 09:20 07/29/23 08:50 07/29/23 08:35 07/29/23 08:12 07/29/23 07:33 Room Air 07/29/23 03:23 Room Air (6) Atrial fibrillation Atrial fibrillation type: unspecified Qualified Code(s): I48.91 - Unspecified atrial fibrillation (7) Anemia Anemia type: unspecified type Qualified Code(s): D64.9 - Anemia, unspecified
--- NOTE | 2023-07-29 18:25 | Surgery Consultation ---
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 pt was admitted to hospital for fever and sepsis. pt had port insertion at [facility] in August 2022. pt had ID consulted that ID doctor recommend to remove port-catheter for possible port- catheter infection. Dr. Gee consult to oncologist Dr Juarez who agreed with remove the port catheter if the indication to meet. I was asked to consult remove the port-catheter. plan: I recommend to do removal of port -catheter under sedation and local. Discussion with the patient about the benefit the risk and alternate of the procedure. I indicated the risks may include but not limited such as a bleeding, infection, hematoma,blood clot. Patient has a higher chance of bleeding after the procedure due to very low plt count, only 9, pt had 2 units plt transfusion today. pt understood, he agreed with the surgery, He signed informed consent. I answered all questions,. - Please start plt transfusion 4 units tomorrow morning, then recheck plt count, the port can be remove once plt count reach 50. may need one unit RBC. - NPO after MN History of Present Illness Reason for Consultation: removal port -catheter Requesting Physician: Floyd Elias MD Attending Physician: Floyd Elias MD History of Present Illness CC: removal port -catheter HPI: pt is a 68 year-old male who with PMHx- HTN, A-fib, acute myeloid leukemia in relapse, pancytopenia, Sepsis, BPH, Tongue lesion and bacteremia due to Klebsiella pneumoniae. pt was admitted to hospital for fever and sepsis. pt had port insertion at [facility] in August 2022. pt had ID consulted that ID doctor recommend to remove port-catheter for possible port- catheter infection. Dr. Gee consult to oncologist Dr Juarez who agreed with remove the port catheter if the indication to meet. I was asked to consult remove the port-catheter. now pt feels better, no fever, no chills. . Allergies Allergy/AdvReac Type Severity Reaction Status Date / Time bee venom protein (honey bee) Allergy Mild SWELLING Verified 07/22/23 09:54 hydrocodone AdvReac Unknown NAUSEA Verified 07/22/23 09:54 nitrofurantoin AdvReac Headache Verified 07/22/23 09:54 Home Medications Medication Instructions Recorded Confirmed Type finasteride 5 mg tablet 5 mg PO HS 09/18/18 07/24/23 History omeprazole 20 mg capsule,delayed 20 mg PO QAM 05/08/21 07/24/23 History release rosuvastatin 10 mg tablet 10 mg PO QAM 05/08/21 07/24/23 History losartan 100 mg tablet 100 mg PO QAM 05/10/21 07/24/23 History tamsulosin 0.4 mg capsule (Flomax) 4 mg PO HS 05/10/21 07/24/23 History acyclovir 400 mg tablet 400 mg PO BID 01/27/22 07/24/23 History multivitamin with minerals 1 tab PO QAM 01/27/22 07/24/23 History ondansetron 4 mg disintegrating 4 mg translingual Q6 PRN Nausea 02/05/22 07/24/23 History tablet furosemide 40 mg tablet 40 mg PO DAILY #30 tabs 02/08/22 07/24/23 Rx potassium chloride 10 mEq 10 meq PO DAILY #30 tabs 02/08/22 07/24/23 Rx tablet,extended release(part/cryst) eplerenone 25 mg tablet 25 mg PO DAILY 11/29/22 07/24/23 History tadalafil 5 mg tablet 5 mg PO DAILY PRN Muscle Pain 11/29/22 07/24/23 History escitalopram oxalate 10 mg tablet 10 mg PO DAILY 12/09/22 07/24/23 History isavuconazonium sulfate 186 mg 372 mg PO BID 12/09/22 07/24/23 History capsule (Cresemba) sildenafil 0 mg PO DIRECTED PRN Sexual 12/09/22 07/24/23 History Activity amiodarone 200 mg tablet 200 mg PO DAILY 12/31/22 07/24/23 History amlodipine 2.5 mg tablet 2.5 mg PO DAILY 12/31/22 07/24/23 History metformin 500 mg tablet,extended 1,000 mg PO BID 12/31/22 07/24/23 History release 24 hr nystatin 100,000 unit/mL oral 5 ml PO BID 06/25/23 07/24/23 History suspension oxycodone 5 mg tablet 5 mg PO Q8H PRN Pain 06/25/23 07/24/23 History chlorhexidine gluconate 0.12 % 15 ml buccal BID #15 mL 07/08/23 07/24/23 Rx mouthwash (Peridex) levofloxacin 750 mg tablet 750 mg PO DAILY #30 tabs 07/08/23 07/24/23 Rx gabapentin 100 mg capsule 100 mg PO TID 07/24/23 07/24/23 History Patient History Medical History AML (acute myeloblastic leukemia) Enlargement of aortic root Follows with Dr. Sibley Per December 2019 ECHO - Aortic root and proximal ascending aorta are mildly enlarged (4.3/4.1 cm respectively) Diabetes mellitus, type 2 DENIES NEUROPATHY History of melanoma PAST HISTORY GERD (gastroesophageal reflux disease) Hypertension Hyperlipidemia Atrial fibrillation Paroxysmal - very rare Per 09/21/20 cardio note- had a fib episode February 2020 after shingles vaccine and Jun 2020 - both episodes lasted several hours- resolved after taking Flecainide as prescribed (takes PRN per cardio instructions) [id number] score =3 for risk factors of age of 64, HTN, and DM2 per cardio records- patient not on AC secondary to bleeding complications in the past (Next cardio visit Sep 2021) Surgical History History of removal of cyst off finger History of colonoscopy History of cataract surgery bilt History of biopsy of bladder History of melanoma excision Family History Other Hypertension No family history of adverse response to anesthesia Social History Smoking Status: Former smoker Tobacco Type: Cigarettes Cigarettes Per Day: QUIT IN 1987; Second Hand Exposure: No; Do You Dip or Chew Tobacco: No; Tobacco Cessation Education Requested by Patient: No Hx Alcohol Use: No Hx Substance Use: No Preferred Language: Guinean Communication Ability: Effective Legal Administrative Secretary Required: No Beliefs That Will Affect Care: None marital status: Current Living Situation: Spouse How many Children do You have: 1 Other Information That Helps Us Care for You: No Feels Safe at Home: Yes Safety Concerns: Feels Safe At This Time Assistive Devices: None Review of Systems Constitutional: as per Subjective / HPI Eyes: as per Subjective / HPI Respiratory: as per Subjective / HPI Cardiovascular: Additional Comments: HTN, hyperlipidemia. A- Fib Gastrointestinal: as per Subjective / HPI Genitourinary: + problem reported (BPH) Neurologic: as per Subjective / HPI Psychiatric: as per Subjective / HPI Endocrine: as per Subjective / HPI Hematologic / Lymphatic: AMI, Pancytopenia Physical Exam Constitutional: WD/WN, vitals as above Eyes: PERRL, conjunctivae normal, anicteric sclerae Neck: trachea midline, no thyromegaly Respiratory: normal respiratory effort, lungs clear to auscultation Cardiovascular: Rate/Rhythm: + irregularly irregular Chest (Breasts): Additional Comments: the port located at right upper chest wall, no redness, no drainage. Gastrointestinal (Abdomen): normal bowel sounds, soft, nontender, no hepatosplenomegaly Neurologic: patellar DTR's 2+ bilat, sensation intact Psychiatric: A+Ox3, euthymic affect Results & Data Vital Signs (Past 12 Hours) Vital Signs Temp Pulse Pulse Resp BP BP Pulse Ox 07/29/23 16:26 56 L 07/29/23 15:16 36.8 C 74 18 136/80 97 07/29/23 14:32 36.7 C 69 18 138/69 100 07/29/23 13:32 36.6 C 54 L 19 105/48 L 97 07/29/23 13:32 36.6 C 56 L 18 124/72 93 07/29/23 13:02 36.6 C 62 18 109/61 92 07/29/23 12:47 36.8 C 63 18 105/66 94 07/29/23 12:10 36.8 C 65 18 103/58 L 94 07/29/23 10:51 36.8 C 67 18 104/68 94 07/29/23 10:20 36.5 C 63 18 103/66 95 07/29/23 09:20 36.7 C 65 18 105/66 96 07/29/23 08:50 36.8 C 74 18 106/67 94 07/29/23 08:35 36.8 C 81 19 109/69 98 07/29/23 08:12 38 C H 74 18 120/75 94 07/29/23 07:33 38.1 C H 74 18 120/75 92 07/29/23 07:20 74 O2 Del Method 07/29/23 16:26 07/29/23 15:16 07/29/23 14:32 07/29/23 13:32 07/29/23 13:32 07/29/23 13:02 07/29/23 12:47 07/29/23 12:10 07/29/23 10:51 07/29/23 10:20 07/29/23 09:20 07/29/23 08:50 07/29/23 08:35 07/29/23 08:12 07/29/23 07:33 Room Air 07/29/23 07:20 Laboratory Results Lab Results 07/24/23 07/24/23 07/24/23 Range/Units 10:13 11:09 11:09 WBC 0.16 L* (4.8-10.8) K/ul RBC 2.25 L (4.70-6.10) M/uL Hgb 6.6 L* (14.0-18.0) g/dl Hct 19.0 L* (42.0-52.0) % MCV 84.4 (80.0-100.0) fL MCH 29.3 (25.0-34.0) pg MCHC 34.7 (32.0-36.0) g/dL RDW Std Deviation 40.8 (36.4-46.3) fL RDW Coeff of Anna 13.3 (11.5-14.5) % Plt Count 4 L* (130-400) K/uL MPV (9.4-12.4) fL Immature Gran % (Auto) Cancelled Neut % (Auto) Cancelled Lymph % (Auto) Cancelled Mckean % (Auto) Cancelled Eos % (Auto) Cancelled Baso % (Auto) Cancelled Neut # (Auto) Cancelled Lymph # (Auto) Cancelled Mckean # (Auto) Cancelled Eos # (Auto) Cancelled Baso # (Auto) Cancelled Immature Gran # (Auto) Cancelled Neutrophils % (Manual) Cancelled Band Neutrophils % Cancelled Lymphocytes % (Manual) Cancelled Prolymphocyte % Cancelled Reactive Lymphs % (Man) Cancelled Monocytes % (Manual) Cancelled Eosinophils % (Manual) Cancelled Basophils % (Manual) Cancelled Metamyelocytes % (Man) Cancelled Myelocytes % (Man) Cancelled Promyelocytes % (Man) Cancelled Blast Cells % (Manual) Cancelled Plasma Cell % (Manual) Cancelled Other Cells % Cancelled Nucleated RBC % Cancelled Neutrophils # (Manual) Cancelled Band Neutrophils # Cancelled Total Absolute Neuts Cancelled Lymphocytes # (Manual) Cancelled Prolymphocyte # Cancelled Reactive Lymphs # Cancelled Total Abs Lymphocytes Cancelled Monocytes # (Manual) Cancelled Eosinophils # (Manual) Cancelled Basophils # (Manual) Cancelled Metamyelocytes # (Man) Cancelled Myelocytes # (Manual) Cancelled Promyelocytes # (Man) Cancelled Blast Cells # (Man) Cancelled Plasma Cell # (Manual) Cancelled Other Cells # Cancelled Nucleated RBCs # (Man) Cancelled Hypersegmented Neuts Cancelled Hyposegmented Neuts Cancelled Hypogranular Neuts Cancelled Large Granular Lymphs Cancelled # Lrg Granular Lymphs Cancelled Hairy Cells Cancelled Smudge Cells Cancelled Toxic Granulation Cancelled Toxic Vacuolation Cancelled Dohle Bodies Cancelled Becky Rods Cancelled Platelet Estimate (Normal) Hypogranular Platelets Cancelled Giant Platelets Cancelled Platelet Satelliting Cancelled RBC Morphology Cancelled Polychromasia Cancelled Hypochromasia Cancelled Poikilocytosis Cancelled Basophilic Stippling Cancelled Anisocytosis Cancelled Microcytosis Cancelled Macrocytosis Cancelled Spherocytes Cancelled Pappenheimer Bodies Cancelled Sickle Cells Cancelled Target Cells Cancelled Tear Drop Cells Cancelled Ovalocytes Cancelled Stomatocytes Cancelled Guillen-Zellwood Bodies Cancelled Echinocytes Cancelled Acanthocytes (Spur) Cancelled Rouleaux Cancelled RBC Agglutinates Cancelled Schistocytes Cancelled Sezary Cell Cancelled PT 12.1 H (9.0-12.0) Seconds INR 1.1 (0.9-1.1) APTT 45 H (21-31) Seconds PTT Ratio 1.6 Sodium 131 L (136-145) mmol/L Potassium 4.0 (3.5-5.1) mmol/L Chloride 97 L (98-107) mmol/L Carbon Dioxide 26 (21-32) mmol/L Anion Gap 8 (3-11) BUN 18 (6-23) mg/dl Creatinine 0.98 (0.6-1.4) mg/dl Est Cr Clr Drug Dosing 78.1 ml/min Est GFR ( Amer) 90.8 ml/min Est GFR (Non-Af Amer) 78.4 ml/min BUN/Creatinine Ratio 18.4 (10-20) Glucose 168 H (70-99(Fasting)) mg/dl POC Glucose (70-99) mg/dl Estimat Average Glucose mg/dl Hemoglobin A1c (4.5-5.6) % Lactate 1.2 (0.4-2.0) mmol/L Uric Acid 3.4 (2.6-7.2) mg/dl Calcium 7.6 L (8.6-10.3) mg/dl Ionized Calcium (1.12-1.32) mmol/L Phosphorus (2.5-4.9) mg/dl Magnesium 1.9 (1.7-2.4) mg/dl Total Bilirubin 0.6 (0.2-1.0) mg/dl Direct Bilirubin 0.2 (0-0.2) mg/dl AST 26 (13-39) U/L ALT 24 (7-52) U/L Alkaline Phosphatase 160 H (34-104) U/L Troponin I High Sens 27.7 H (0-20) pg/ml Total Protein 5.4 L (6.0-8.3) gm/dl Albumin 3.2 L (3.4-5.0) gm/dl Globulin (2.5-4.0) gm/dl Albumin/Globulin Ratio (0.9-2) Procalcitonin 0.58 H (0-0.5) ng/ml Urine Color Urine Appearance (Clear) Urine pH (4.5-7.5) Ur Specific [place] (1.000-1.030) Urine Protein (Negative) Urine Glucose (UA) (Negative) Urine Ketones (Negative) Urine Blood (Negative) Urine Nitrite (Negative) Urine Bilirubin (Negative) Urine Urobilinogen (Negative) Ur Leukocyte Esterase (Negative) Urine WBC (Auto) (0-5) /hpf Urine RBC (Auto) (0-4) /hpf U Hyaline Cast (Auto) (0-5) /lpf U Epithel Cells (Auto) (0-5) /lpf Urine Bacteria (Auto) (Negative) Ur Renal Epithelial Cell Nasal Screen MRSA (PCR) (Negative) Random Vancomycin (10-20) mcg/ml Adenovirus (PCR) Not Detected (NotDetected) Anaplasma Smear Babesia Smear B. pertussis DNA (PCR) Not Detected (NotDetected) B.parapertussis DNA PCR Not Detected (NotDetected) Lyme Disease IgG Ab Negative (Negative) Lyme Disease IgM Ab Negative (Negative) C. pneumoniae DNA (PCR) Not Detected (NotDetected) Coronavirus OC43 (PCR) Not Detected (NotDetected) Coronavirus HKU1 (PCR) Not Detected (NotDetected) Coronavirus 229E (PCR) Not Detected (NotDetected) SARS-CoV-2 (PCR) NEGATIVE Not Detected (Negative) Coronavirus NL63 (PCR) Not Detected (NotDetected) Human Metapneumovir PCR Not Detected (NotDetected) Influenza Type A (PCR) Negative (Neg) Influenza Type B (PCR) (Neg) M. pneumoniae (PCR) (NotDetected) Parainfluenza 1 (PCR) (NotDetected) Parainfluenza 2 (PCR) (NotDetected) Parainfluenza 3 (PCR) (NotDetected) Parainfluenza 4 (PCR) (NotDetected) RSV (RT-PCR) (Neg) RSV (PCR) (NotDetected) Entero/Rhino (PCR) (NotDetected) Blood Parasites ID Cancelled Blood Type O Positive Antibody Screen NEGATIVE Crossmatch See Detail 07/24/23 07/24/23 07/24/23 Range/Units 11:09 11:09 13:01 WBC (4.8-10.8) K/ul RBC (4.70-6.10) M/uL Hgb (14.0-18.0) g/dl Hct (42.0-52.0) % MCV (80.0-100.0) fL MCH (25.0-34.0) pg MCHC (32.0-36.0) g/dL RDW Std Deviation (36.4-46.3) fL RDW Coeff of Anna (11.5-14.5) % Plt Count (130-400) K/uL MPV (9.4-12.4) fL Immature Gran % (Auto) Neut % (Auto) Lymph % (Auto) Mckean % (Auto) Eos % (Auto) Baso % (Auto) Neut # (Auto) Lymph # (Auto) Mckean # (Auto) Eos # (Auto) Baso # (Auto) Immature Gran # (Auto) Neutrophils % (Manual) Band Neutrophils % Lymphocytes % (Manual) Prolymphocyte % Reactive Lymphs % (Man) Monocytes % (Manual) Eosinophils % (Manual) Basophils % (Manual) Metamyelocytes % (Man) Myelocytes % (Man) Promyelocytes % (Man) Blast Cells % (Manual) Plasma Cell % (Manual) Other Cells % Nucleated RBC % Neutrophils # (Manual) Band Neutrophils # Total Absolute Neuts Lymphocytes # (Manual) Prolymphocyte # Reactive Lymphs # Total Abs Lymphocytes Monocytes # (Manual) Eosinophils # (Manual) Basophils # (Manual) Metamyelocytes # (Man) Myelocytes # (Manual) Promyelocytes # (Man) Blast Cells # (Man) Plasma Cell # (Manual) Other Cells # Nucleated RBCs # (Man) Hypersegmented Neuts Hyposegmented Neuts Hypogranular Neuts Large Granular Lymphs # Lrg Granular Lymphs Hairy Cells Smudge Cells Toxic Granulation Toxic Vacuolation Dohle Bodies Becky Rods Platelet Estimate (Normal) Hypogranular Platelets Giant Platelets Platelet Satelliting RBC Morphology Polychromasia Hypochromasia Poikilocytosis Basophilic Stippling Anisocytosis Microcytosis Macrocytosis Spherocytes Pappenheimer Bodies Sickle Cells Target Cells Tear Drop Cells Ovalocytes Stomatocytes Guillen-Zellwood Bodies Echinocytes Acanthocytes (Spur) Rouleaux RBC Agglutinates Schistocytes Sezary Cell PT (9.0-12.0) Seconds INR (0.9-1.1) APTT (21-31) Seconds PTT Ratio Sodium (136-145) mmol/L Potassium (3.5-5.1) mmol/L Chloride (98-107) mmol/L Carbon Dioxide (21-32) mmol/L Anion Gap (3-11) BUN (6-23) mg/dl Creatinine (0.6-1.4) mg/dl Est Cr Clr Drug Dosing ml/min Est GFR ( Amer) ml/min Est GFR (Non-Af Amer) ml/min BUN/Creatinine Ratio (10-20) Glucose (70-99(Fasting)) mg/dl POC Glucose (70-99) mg/dl Estimat Average Glucose mg/dl Hemoglobin A1c (4.5-5.6) % Lactate (0.4-2.0) mmol/L Uric Acid (2.6-7.2) mg/dl Calcium (8.6-10.3) mg/dl Ionized Calcium (1.12-1.32) mmol/L Phosphorus (2.5-4.9) mg/dl Magnesium (1.7-2.4) mg/dl Total Bilirubin (0.2-1.0) mg/dl Direct Bilirubin (0-0.2) mg/dl AST (13-39) U/L ALT (7-52) U/L Alkaline Phosphatase (34-104) U/L Troponin I High Sens (0-20) pg/ml Total Protein (6.0-8.3) gm/dl Albumin (3.4-5.0) gm/dl Globulin (2.5-4.0) gm/dl Albumin/Globulin Ratio (0.9-2) Procalcitonin (0-0.5) ng/ml Urine Color Dark Yellow Urine Appearance Clear (Clear) Urine pH 5.5 (4.5-7.5) Ur Specific [place] 1.028 (1.000-1.030) Urine Protein 2+ H (Negative) Urine Glucose (UA) Negative (Negative) Urine Ketones Trace H (Negative) Urine Blood Negative (Negative) Urine Nitrite Negative (Negative) Urine Bilirubin 1+ H (Negative) Urine Urobilinogen Negative (Negative) Ur Leukocyte Esterase Negative (Negative) Urine WBC (Auto) 1-5 (0-5) /hpf Urine RBC (Auto) 0-4 (0-4) /hpf U Hyaline Cast (Auto) 10-30 H (0-5) /lpf U Epithel Cells (Auto) >30 H (0-5) /lpf Urine Bacteria (Auto) Negative (Negative) Ur Renal Epithelial Cell Not Reportable Nasal Screen MRSA (PCR) (Negative) Random Vancomycin (10-20) mcg/ml Adenovirus (PCR) (NotDetected) Anaplasma Smear Babesia Smear B. pertussis DNA (PCR) (NotDetected) B.parapertussis DNA PCR (NotDetected) Lyme Disease IgG Ab (Negative) Lyme Disease IgM Ab (Negative) C. pneumoniae DNA (PCR) (NotDetected) Coronavirus OC43 (PCR) (NotDetected) Coronavirus HKU1 (PCR) (NotDetected) Coronavirus 229E (PCR) (NotDetected) SARS-CoV-2 (PCR) (Negative) Coronavirus NL63 (PCR) (NotDetected) Human Metapneumovir PCR (NotDetected) Influenza Type A (PCR) Not Detected (Neg) Influenza Type B (PCR) Negative Not Detected (Neg) M. pneumoniae (PCR) Not Detected (NotDetected) Parainfluenza 1 (PCR) Not Detected (NotDetected) Parainfluenza 2 (PCR) Not Detected (NotDetected) Parainfluenza 3 (PCR) Not Detected (NotDetected) Parainfluenza 4 (PCR) Not Detected (NotDetected) RSV (RT-PCR) Negative (Neg) RSV (PCR) Not Detected (NotDetected) Entero/Rhino (PCR) Not Detected (NotDetected) Blood Parasites ID Blood Type Antibody Screen Crossmatch 07/24/23 07/24/23 07/24/23 Range/Units 15:04 17:03 19:57 WBC (4.8-10.8) K/ul RBC (4.70-6.10) M/uL Hgb (14.0-18.0) g/dl Hct (42.0-52.0) % MCV (80.0-100.0) fL MCH (25.0-34.0) pg MCHC (32.0-36.0) g/dL RDW Std Deviation (36.4-46.3) fL RDW Coeff of Anna (11.5-14.5) % Plt Count (130-400) K/uL MPV (9.4-12.4) fL Immature Gran % (Auto) Neut % (Auto) Lymph % (Auto) Mckean % (Auto) Eos % (Auto) Baso % (Auto) Neut # (Auto) Lymph # (Auto) Mckean # (Auto) Eos # (Auto) Baso # (Auto) Immature Gran # (Auto) Neutrophils % (Manual) Band Neutrophils % Lymphocytes % (Manual) Prolymphocyte % Reactive Lymphs % (Man) Monocytes % (Manual) Eosinophils % (Manual) Basophils % (Manual) Metamyelocytes % (Man) Myelocytes % (Man) Promyelocytes % (Man) Blast Cells % (Manual) Plasma Cell % (Manual) Other Cells % Nucleated RBC % Neutrophils # (Manual) Band Neutrophils # Total Absolute Neuts Lymphocytes # (Manual) Prolymphocyte # Reactive Lymphs # Total Abs Lymphocytes Monocytes # (Manual) Eosinophils # (Manual) Basophils # (Manual) Metamyelocytes # (Man) Myelocytes # (Manual) Promyelocytes # (Man) Blast Cells # (Man) Plasma Cell # (Manual) Other Cells # Nucleated RBCs # (Man) Hypersegmented Neuts Hyposegmented Neuts Hypogranular Neuts Large Granular Lymphs # Lrg Granular Lymphs Hairy Cells Smudge Cells Toxic Granulation Toxic Vacuolation Dohle Bodies Becky Rods Platelet Estimate (Normal) Hypogranular Platelets Giant Platelets Platelet Satelliting RBC Morphology Polychromasia Hypochromasia Poikilocytosis Basophilic Stippling Anisocytosis Microcytosis Macrocytosis Spherocytes Pappenheimer Bodies Sickle Cells Target Cells Tear Drop Cells Ovalocytes Stomatocytes Guillen-Zellwood Bodies Echinocytes Acanthocytes (Spur) Rouleaux RBC Agglutinates Schistocytes Sezary Cell PT (9.0-12.0) Seconds INR (0.9-1.1) APTT (21-31) Seconds PTT Ratio Sodium (136-145) mmol/L Potassium (3.5-5.1) mmol/L Chloride (98-107) mmol/L Carbon Dioxide (21-32) mmol/L Anion Gap (3-11) BUN (6-23) mg/dl Creatinine (0.6-1.4) mg/dl Est Cr Clr Drug Dosing ml/min Est GFR ( Amer) ml/min Est GFR (Non-Af Amer) ml/min BUN/Creatinine Ratio (10-20) Glucose (70-99(Fasting)) mg/dl POC Glucose 173 H 94 (70-99) mg/dl Estimat Average Glucose mg/dl Hemoglobin A1c (4.5-5.6) % Lactate (0.4-2.0) mmol/L Uric Acid (2.6-7.2) mg/dl Calcium (8.6-10.3) mg/dl Ionized Calcium (1.12-1.32) mmol/L Phosphorus (2.5-4.9) mg/dl Magnesium (1.7-2.4) mg/dl Total Bilirubin (0.2-1.0) mg/dl Direct Bilirubin (0-0.2) mg/dl AST (13-39) U/L ALT (7-52) U/L Alkaline Phosphatase (34-104) U/L Troponin I High Sens 31.0 H (0-20) pg/ml Total Protein (6.0-8.3) gm/dl Albumin (3.4-5.0) gm/dl Globulin (2.5-4.0) gm/dl Albumin/Globulin Ratio (0.9-2) Procalcitonin (0-0.5) ng/ml Urine Color Urine Appearance (Clear) Urine pH (4.5-7.5) Ur Specific [place] (1.000-1.030) Urine Protein (Negative) Urine Glucose (UA) (Negative) Urine Ketones (Negative) Urine Blood (Negative) Urine Nitrite (Negative) Urine Bilirubin (Negative) Urine Urobilinogen (Negative) Ur Leukocyte Esterase (Negative) Urine WBC (Auto) (0-5) /hpf Urine RBC (Auto) (0-4) /hpf U Hyaline Cast (Auto) (0-5) /lpf U Epithel Cells (Auto) (0-5) /lpf Urine Bacteria (Auto) (Negative) Ur Renal Epithelial Cell Nasal Screen MRSA (PCR) (Negative) Random Vancomycin (10-20) mcg/ml Adenovirus (PCR) (NotDetected) Anaplasma Smear See Comment Babesia Smear See Comment B. pertussis DNA (PCR) (NotDetected) B.parapertussis DNA PCR (NotDetected) Lyme Disease IgG Ab (Negative) Lyme Disease IgM Ab (Negative) C. pneumoniae DNA (PCR) (NotDetected) Coronavirus OC43 (PCR) (NotDetected) Coronavirus HKU1 (PCR) (NotDetected) Coronavirus 229E (PCR) (NotDetected) SARS-CoV-2 (PCR) (Negative) Coronavirus NL63 (PCR) (NotDetected) Human Metapneumovir PCR (NotDetected) Influenza Type A (PCR) (Neg) Influenza Type B (PCR) (Neg) M. pneumoniae (PCR) (NotDetected) Parainfluenza 1 (PCR) (NotDetected) Parainfluenza 2 (PCR) (NotDetected) Parainfluenza 3 (PCR) (NotDetected) Parainfluenza 4 (PCR) (NotDetected) RSV (RT-PCR) (Neg) RSV (PCR) (NotDetected) Entero/Rhino (PCR) (NotDetected) Blood Parasites ID Blood Type Antibody Screen Crossmatch 07/25/23 07/25/23 07/25/23 Range/Units 07:20 07:29 11:14 WBC 0.21 L* (4.8-10.8) K/ul RBC 2.16 L (4.70-6.10) M/uL Hgb 6.2 L* (14.0-18.0) g/dl Hct 18.2 L* (42.0-52.0) % MCV 84.3 (80.0-100.0) fL MCH 28.7 (25.0-34.0) pg MCHC 34.1 (32.0-36.0) g/dL RDW Std Deviation 41.0 (36.4-46.3) fL RDW Coeff of Anna 13.4 (11.5-14.5) % Plt Count 4 L* (130-400) K/uL MPV 9.2 L (9.4-12.4) fL Immature Gran % (Auto) Cancelled Neut % (Auto) Cancelled Lymph % (Auto) Cancelled Mckean % (Auto) Cancelled Eos % (Auto) Cancelled Baso % (Auto) Cancelled Neut # (Auto) Cancelled Lymph # (Auto) Cancelled Mckean # (Auto) Cancelled Eos # (Auto) Cancelled Baso # (Auto) Cancelled Immature Gran # (Auto) Cancelled Neutrophils % (Manual) Cancelled Band Neutrophils % Cancelled Lymphocytes % (Manual) Cancelled Prolymphocyte % Cancelled Reactive Lymphs % (Man) Cancelled Monocytes % (Manual) Cancelled Eosinophils % (Manual) Cancelled Basophils % (Manual) Cancelled Metamyelocytes % (Man) Cancelled Myelocytes % (Man) Cancelled Promyelocytes % (Man) Cancelled Blast Cells % (Manual) Cancelled Plasma Cell % (Manual) Cancelled Other Cells % Cancelled Nucleated RBC % Cancelled Neutrophils # (Manual) Cancelled Band Neutrophils # Cancelled Total Absolute Neuts Cancelled Lymphocytes # (Manual) Cancelled Prolymphocyte # Cancelled Reactive Lymphs # Cancelled Total Abs Lymphocytes Cancelled Monocytes # (Manual) Cancelled Eosinophils # (Manual) Cancelled Basophils # (Manual) Cancelled Metamyelocytes # (Man) Cancelled Myelocytes # (Manual) Cancelled Promyelocytes # (Man) Cancelled Blast Cells # (Man) Cancelled Plasma Cell # (Manual) Cancelled Other Cells # Cancelled Nucleated RBCs # (Man) Cancelled Hypersegmented Neuts Cancelled Hyposegmented Neuts Cancelled Hypogranular Neuts Cancelled Large Granular Lymphs Cancelled # Lrg Granular Lymphs Cancelled Hairy Cells Cancelled Smudge Cells Cancelled Toxic Granulation Cancelled Toxic Vacuolation Cancelled Dohle Bodies Cancelled Becky Rods Cancelled Platelet Estimate (Normal) Hypogranular Platelets Cancelled Giant Platelets Cancelled Platelet Satelliting Cancelled RBC Morphology Cancelled Polychromasia Cancelled Hypochromasia Cancelled Poikilocytosis Cancelled Basophilic Stippling Cancelled Anisocytosis Cancelled Microcytosis Cancelled Macrocytosis Cancelled Spherocytes Cancelled Pappenheimer Bodies Cancelled Sickle Cells Cancelled Target Cells Cancelled Tear Drop Cells Cancelled Ovalocytes Cancelled Stomatocytes Cancelled Guillen-Zellwood Bodies Cancelled Echinocytes Cancelled Acanthocytes (Spur) Cancelled Rouleaux Cancelled RBC Agglutinates Cancelled Schistocytes Cancelled Sezary Cell Cancelled PT (9.0-12.0) Seconds INR (0.9-1.1) APTT (21-31) Seconds PTT Ratio Sodium 136 (136-145) mmol/L Potassium 4.1 (3.5-5.1) mmol/L Chloride 103 (98-107) mmol/L Carbon Dioxide 27 (21-32) mmol/L Anion Gap 6 (3-11) BUN 12 (6-23) mg/dl Creatinine 0.85 (0.6-1.4) mg/dl Est Cr Clr Drug Dosing 90.0 ml/min Est GFR ( Amer) 103.0 ml/min Est GFR (Non-Af Amer) 88.9 ml/min BUN/Creatinine Ratio 14.1 (10-20) Glucose 123 H (70-99(Fasting)) mg/dl POC Glucose 128 H 141 H (70-99) mg/dl Estimat Average Glucose 163 mg/dl Hemoglobin A1c 7.3 H (4.5-5.6) % Lactate (0.4-2.0) mmol/L Uric Acid (2.6-7.2) mg/dl Calcium 7.5 L (8.6-10.3) mg/dl Ionized Calcium (1.12-1.32) mmol/L Phosphorus 3.5 (2.5-4.9) mg/dl Magnesium 2.0 (1.7-2.4) mg/dl Total Bilirubin 0.6 (0.2-1.0) mg/dl Direct Bilirubin (0-0.2) mg/dl AST 28 (13-39) U/L ALT 23 (7-52) U/L Alkaline Phosphatase 153 H (34-104) U/L Troponin I High Sens (0-20) pg/ml Total Protein 4.9 L (6.0-8.3) gm/dl Albumin 2.7 L (3.4-5.0) gm/dl Globulin 2.2 L (2.5-4.0) gm/dl Albumin/Globulin Ratio 1.2 (0.9-2) Procalcitonin (0-0.5) ng/ml Urine Color Urine Appearance (Clear) Urine pH (4.5-7.5) Ur Specific [place] (1.000-1.030) Urine Protein (Negative) Urine Glucose (UA) (Negative) Urine Ketones (Negative) Urine Blood (Negative) Urine Nitrite (Negative) Urine Bilirubin (Negative) Urine Urobilinogen (Negative) Ur Leukocyte Esterase (Negative) Urine WBC (Auto) (0-5) /hpf Urine RBC (Auto) (0-4) /hpf U Hyaline Cast (Auto) (0-5) /lpf U Epithel Cells (Auto) (0-5) /lpf Urine Bacteria (Auto) (Negative) Ur Renal Epithelial Cell Nasal Screen MRSA (PCR) (Negative) Random Vancomycin (10-20) mcg/ml Adenovirus (PCR) (NotDetected) Anaplasma Smear Babesia Smear B. pertussis DNA (PCR) (NotDetected) B.parapertussis DNA PCR (NotDetected) Lyme Disease IgG Ab (Negative) Lyme Disease IgM Ab (Negative) C. pneumoniae DNA (PCR) (NotDetected) Coronavirus OC43 (PCR) (NotDetected) Coronavirus HKU1 (PCR) (NotDetected) Coronavirus 229E (PCR) (NotDetected) SARS-CoV-2 (PCR) (Negative) Coronavirus NL63 (PCR) (NotDetected) Human Metapneumovir PCR (NotDetected) Influenza Type A (PCR) (Neg) Influenza Type B (PCR) (Neg) M. pneumoniae (PCR) (NotDetected) Parainfluenza 1 (PCR) (NotDetected) Parainfluenza 2 (PCR) (NotDetected) Parainfluenza 3 (PCR) (NotDetected) Parainfluenza 4 (PCR) (NotDetected) RSV (RT-PCR) (Neg) RSV (PCR) (NotDetected) Entero/Rhino (PCR) (NotDetected) Blood Parasites ID Cancelled Blood Type Antibody Screen Crossmatch 07/25/23 07/25/23 07/25/23 Range/Units 15:04 16:02 20:44 WBC (4.8-10.8) K/ul RBC (4.70-6.10) M/uL Hgb (14.0-18.0) g/dl Hct (42.0-52.0) % MCV (80.0-100.0) fL MCH (25.0-34.0) pg MCHC (32.0-36.0) g/dL RDW Std Deviation (36.4-46.3) fL RDW Coeff of Anna (11.5-14.5) % Plt Count (130-400) K/uL MPV (9.4-12.4) fL Immature Gran % (Auto) Neut % (Auto) Lymph % (Auto) Mckean % (Auto) Eos % (Auto) Baso % (Auto) Neut # (Auto) Lymph # (Auto) Mckean # (Auto) Eos # (Auto) Baso # (Auto) Immature Gran # (Auto) Neutrophils % (Manual) Band Neutrophils % Lymphocytes % (Manual) Prolymphocyte % Reactive Lymphs % (Man) Monocytes % (Manual) Eosinophils % (Manual) Basophils % (Manual) Metamyelocytes % (Man) Myelocytes % (Man) Promyelocytes % (Man) Blast Cells % (Manual) Plasma Cell % (Manual) Other Cells % Nucleated RBC % Neutrophils # (Manual) Band Neutrophils # Total Absolute Neuts Lymphocytes # (Manual) Prolymphocyte # Reactive Lymphs # Total Abs Lymphocytes Monocytes # (Manual) Eosinophils # (Manual) Basophils # (Manual) Metamyelocytes # (Man) Myelocytes # (Manual) Promyelocytes # (Man) Blast Cells # (Man) Plasma Cell # (Manual) Other Cells # Nucleated RBCs # (Man) Hypersegmented Neuts Hyposegmented Neuts Hypogranular Neuts Large Granular Lymphs # Lrg Granular Lymphs Hairy Cells Smudge Cells Toxic Granulation Toxic Vacuolation Dohle Bodies Becky Rods Platelet Estimate (Normal) Hypogranular Platelets Giant Platelets Platelet Satelliting RBC Morphology Polychromasia Hypochromasia Poikilocytosis Basophilic Stippling Anisocytosis Microcytosis Macrocytosis Spherocytes Pappenheimer Bodies Sickle Cells Target Cells Tear Drop Cells Ovalocytes Stomatocytes Guillen-Zellwood Bodies Echinocytes Acanthocytes (Spur) Rouleaux RBC Agglutinates Schistocytes Sezary Cell PT (9.0-12.0) Seconds INR (0.9-1.1) APTT (21-31) Seconds PTT Ratio Sodium (136-145) mmol/L Potassium (3.5-5.1) mmol/L Chloride (98-107) mmol/L Carbon Dioxide (21-32) mmol/L Anion Gap (3-11) BUN (6-23) mg/dl Creatinine (0.6-1.4) mg/dl Est Cr Clr Drug Dosing ml/min Est GFR ( Amer) ml/min Est GFR (Non-Af Amer) ml/min BUN/Creatinine Ratio (10-20) Glucose (70-99(Fasting)) mg/dl POC Glucose 109 H 89 (70-99) mg/dl Estimat Average Glucose mg/dl Hemoglobin A1c (4.5-5.6) % Lactate (0.4-2.0) mmol/L Uric Acid (2.6-7.2) mg/dl Calcium (8.6-10.3) mg/dl Ionized Calcium (1.12-1.32) mmol/L Phosphorus (2.5-4.9) mg/dl Magnesium (1.7-2.4) mg/dl Total Bilirubin (0.2-1.0) mg/dl Direct Bilirubin (0-0.2) mg/dl AST (13-39) U/L ALT (7-52) U/L Alkaline Phosphatase (34-104) U/L Troponin I High Sens (0-20) pg/ml Total Protein (6.0-8.3) gm/dl Albumin (3.4-5.0) gm/dl Globulin (2.5-4.0) gm/dl Albumin/Globulin Ratio (0.9-2) Procalcitonin (0-0.5) ng/ml Urine Color Urine Appearance (Clear) Urine pH (4.5-7.5) Ur Specific [place] (1.000-1.030) Urine Protein (Negative) Urine Glucose (UA) (Negative) Urine Ketones (Negative) Urine Blood (Negative) Urine Nitrite (Negative) Urine Bilirubin (Negative) Urine Urobilinogen (Negative) Ur Leukocyte Esterase (Negative) Urine WBC (Auto) (0-5) /hpf Urine RBC (Auto) (0-4) /hpf U Hyaline Cast (Auto) (0-5) /lpf U Epithel Cells (Auto) (0-5) /lpf Urine Bacteria (Auto) (Negative) Ur Renal Epithelial Cell Nasal Screen MRSA (PCR) (Negative) Random Vancomycin 12.6 (10-20) mcg/ml Adenovirus (PCR) (NotDetected) Anaplasma Smear Babesia Smear B. pertussis DNA (PCR) (NotDetected) B.parapertussis DNA PCR (NotDetected) Lyme Disease IgG Ab (Negative) Lyme Disease IgM Ab (Negative) C. pneumoniae DNA (PCR) (NotDetected) Coronavirus OC43 (PCR) (NotDetected) Coronavirus HKU1 (PCR) (NotDetected) Coronavirus 229E (PCR) (NotDetected) SARS-CoV-2 (PCR) (Negative) Coronavirus NL63 (PCR) (NotDetected) Human Metapneumovir PCR (NotDetected) Influenza Type A (PCR) (Neg) Influenza Type B (PCR) (Neg) M. pneumoniae (PCR) (NotDetected) Parainfluenza 1 (PCR) (NotDetected) Parainfluenza 2 (PCR) (NotDetected) Parainfluenza 3 (PCR) (NotDetected) Parainfluenza 4 (PCR) (NotDetected) RSV (RT-PCR) (Neg) RSV (PCR) (NotDetected) Entero/Rhino (PCR) (NotDetected) Blood Parasites ID Blood Type Antibody Screen Crossmatch 07/25/23 07/26/23 07/26/23 Range/Units 22:32 07:01 07:57 WBC 0.24 L* 0.24 L* (4.8-10.8) K/ul RBC 2.92 L 2.61 L (4.70-6.10) M/uL Hgb 8.5 L 7.6 L (14.0-18.0) g/dl Hct 24.9 L 22.2 L (42.0-52.0) % MCV 85.3 85.1 (80.0-100.0) fL MCH 29.1 29.1 (25.0-34.0) pg MCHC 34.1 34.2 (32.0-36.0) g/dL RDW Std Deviation 42.1 42.0 (36.4-46.3) fL RDW Coeff of Anna 13.4 13.4 (11.5-14.5) % Plt Count 11 L* D 6 L* (130-400) K/uL MPV 10.5 11.2 (9.4-12.4) fL Immature Gran % (Auto) Cancelled Neut % (Auto) Cancelled Lymph % (Auto) Cancelled Mckean % (Auto) Cancelled Eos % (Auto) Cancelled Baso % (Auto) Cancelled Neut # (Auto) Cancelled Lymph # (Auto) Cancelled Mckean # (Auto) Cancelled Eos # (Auto) Cancelled Baso # (Auto) Cancelled Immature Gran # (Auto) Cancelled Neutrophils % (Manual) Cancelled Band Neutrophils % Cancelled Lymphocytes % (Manual) Cancelled Prolymphocyte % Cancelled Reactive Lymphs % (Man) Cancelled Monocytes % (Manual) Cancelled Eosinophils % (Manual) Cancelled Basophils % (Manual) Cancelled Metamyelocytes % (Man) Cancelled Myelocytes % (Man) Cancelled Promyelocytes % (Man) Cancelled Blast Cells % (Manual) Cancelled Plasma Cell % (Manual) Cancelled Other Cells % Cancelled Nucleated RBC % Cancelled Neutrophils # (Manual) Cancelled Band Neutrophils # Cancelled Total Absolute Neuts Cancelled Lymphocytes # (Manual) Cancelled Prolymphocyte # Cancelled Reactive Lymphs # Cancelled Total Abs Lymphocytes Cancelled Monocytes # (Manual) Cancelled Eosinophils # (Manual) Cancelled Basophils # (Manual) Cancelled Metamyelocytes # (Man) Cancelled Myelocytes # (Manual) Cancelled Promyelocytes # (Man) Cancelled Blast Cells # (Man) Cancelled Plasma Cell # (Manual) Cancelled Other Cells # Cancelled Nucleated RBCs # (Man) Cancelled Hypersegmented Neuts Cancelled Hyposegmented Neuts Cancelled Hypogranular Neuts Cancelled Large Granular Lymphs Cancelled # Lrg Granular Lymphs Cancelled Hairy Cells Cancelled Smudge Cells Cancelled Toxic Granulation Cancelled Toxic Vacuolation Cancelled Dohle Bodies Cancelled Becky Rods Cancelled Platelet Estimate Signific. Decreased L (Normal) Hypogranular Platelets Cancelled Giant Platelets Cancelled Platelet Satelliting Cancelled RBC Morphology Cancelled Polychromasia Cancelled Hypochromasia Cancelled Poikilocytosis Cancelled Basophilic Stippling Cancelled Anisocytosis Cancelled Microcytosis Cancelled Macrocytosis Cancelled Spherocytes Cancelled Pappenheimer Bodies Cancelled Sickle Cells Cancelled Target Cells Cancelled Tear Drop Cells Cancelled Ovalocytes Cancelled Stomatocytes Cancelled Guillen-Zellwood Bodies Cancelled Echinocytes Cancelled Acanthocytes (Spur) Cancelled Rouleaux Cancelled RBC Agglutinates Cancelled Schistocytes Cancelled Sezary Cell Cancelled PT (9.0-12.0) Seconds INR (0.9-1.1) APTT (21-31) Seconds PTT Ratio Sodium 136 (136-145) mmol/L Potassium 3.9 (3.5-5.1) mmol/L Chloride 103 (98-107) mmol/L Carbon Dioxide 28 (21-32) mmol/L Anion Gap 5 (3-11) BUN 11 (6-23) mg/dl Creatinine 0.78 (0.6-1.4) mg/dl Est Cr Clr Drug Dosing 98.1 ml/min Est GFR ( Amer) 106.7 ml/min Est GFR (Non-Af Amer) 92.1 ml/min BUN/Creatinine Ratio 14.1 (10-20) Glucose 136 H (70-99(Fasting)) mg/dl POC Glucose 153 H (70-99) mg/dl Estimat Average Glucose mg/dl Hemoglobin A1c (4.5-5.6) % Lactate (0.4-2.0) mmol/L Uric Acid (2.6-7.2) mg/dl Calcium 7.6 L (8.6-10.3) mg/dl Ionized Calcium 1.15 (1.12-1.32) mmol/L Phosphorus 3.4 (2.5-4.9) mg/dl Magnesium 2.0 (1.7-2.4) mg/dl Total Bilirubin 0.6 (0.2-1.0) mg/dl Direct Bilirubin (0-0.2) mg/dl AST 34 (13-39) U/L ALT 33 (7-52) U/L Alkaline Phosphatase 167 H (34-104) U/L Troponin I High Sens (0-20) pg/ml Total Protein 5.0 L (6.0-8.3) gm/dl Albumin 2.7 L (3.4-5.0) gm/dl Globulin 2.3 L (2.5-4.0) gm/dl Albumin/Globulin Ratio 1.2 (0.9-2) Procalcitonin (0-0.5) ng/ml Urine Color Urine Appearance (Clear) Urine pH (4.5-7.5) Ur Specific [place] (1.000-1.030) Urine Protein (Negative) Urine Glucose (UA) (Negative) Urine Ketones (Negative) Urine Blood (Negative) Urine Nitrite (Negative) Urine Bilirubin (Negative) Urine Urobilinogen (Negative) Ur Leukocyte Esterase (Negative) Urine WBC (Auto) (0-5) /hpf Urine RBC (Auto) (0-4) /hpf U Hyaline Cast (Auto) (0-5) /lpf U Epithel Cells (Auto) (0-5) /lpf Urine Bacteria (Auto) (Negative) Ur Renal Epithelial Cell Nasal Screen MRSA (PCR) (Negative) Random Vancomycin (10-20) mcg/ml Adenovirus (PCR) (NotDetected) Anaplasma Smear Babesia Smear B. pertussis DNA (PCR) (NotDetected) B.parapertussis DNA PCR (NotDetected) Lyme Disease IgG Ab (Negative) Lyme Disease IgM Ab (Negative) C. pneumoniae DNA (PCR) (NotDetected) Coronavirus OC43 (PCR) (NotDetected) Coronavirus HKU1 (PCR) (NotDetected) Coronavirus 229E (PCR) (NotDetected) SARS-CoV-2 (PCR) (Negative) Coronavirus NL63 (PCR) (NotDetected) Human Metapneumovir PCR (NotDetected) Influenza Type A (PCR) (Neg) Influenza Type B (PCR) (Neg) M. pneumoniae (PCR) (NotDetected) Parainfluenza 1 (PCR) (NotDetected) Parainfluenza 2 (PCR) (NotDetected) Parainfluenza 3 (PCR) (NotDetected) Parainfluenza 4 (PCR) (NotDetected) RSV (RT-PCR) (Neg) RSV (PCR) (NotDetected) Entero/Rhino (PCR) (NotDetected) Blood Parasites ID Cancelled Blood Type Antibody Screen Crossmatch 07/26/23 07/26/23 07/26/23 Range/Units 10:56 16:22 19:49 WBC (4.8-10.8) K/ul RBC (4.70-6.10) M/uL Hgb (14.0-18.0) g/dl Hct (42.0-52.0) % MCV (80.0-100.0) fL MCH (25.0-34.0) pg MCHC (32.0-36.0) g/dL RDW Std Deviation (36.4-46.3) fL RDW Coeff of Anna (11.5-14.5) % Plt Count (130-400) K/uL MPV (9.4-12.4) fL Immature Gran % (Auto) Neut % (Auto) Lymph % (Auto) Mckean % (Auto) Eos % (Auto) Baso % (Auto) Neut # (Auto) Lymph # (Auto) Mckean # (Auto) Eos # (Auto) Baso # (Auto) Immature Gran # (Auto) Neutrophils % (Manual) Band Neutrophils % Lymphocytes % (Manual) Prolymphocyte % Reactive Lymphs % (Man) Monocytes % (Manual) Eosinophils % (Manual) Basophils % (Manual) Metamyelocytes % (Man) Myelocytes % (Man) Promyelocytes % (Man) Blast Cells % (Manual) Plasma Cell % (Manual) Other Cells % Nucleated RBC % Neutrophils # (Manual) Band Neutrophils # Total Absolute Neuts Lymphocytes # (Manual) Prolymphocyte # Reactive Lymphs # Total Abs Lymphocytes Monocytes # (Manual) Eosinophils # (Manual) Basophils # (Manual) Metamyelocytes # (Man) Myelocytes # (Manual) Promyelocytes # (Man) Blast Cells # (Man) Plasma Cell # (Manual) Other Cells # Nucleated RBCs # (Man) Hypersegmented Neuts Hyposegmented Neuts Hypogranular Neuts Large Granular Lymphs # Lrg Granular Lymphs Hairy Cells Smudge Cells Toxic Granulation Toxic Vacuolation Dohle Bodies Becky Rods Platelet Estimate (Normal) Hypogranular Platelets Giant Platelets Platelet Satelliting RBC Morphology Polychromasia Hypochromasia Poikilocytosis Basophilic Stippling Anisocytosis Microcytosis Macrocytosis Spherocytes Pappenheimer Bodies Sickle Cells Target Cells Tear Drop Cells Ovalocytes Stomatocytes Guillen-Zellwood Bodies Echinocytes Acanthocytes (Spur) Rouleaux RBC Agglutinates Schistocytes Sezary Cell PT (9.0-12.0) Seconds INR (0.9-1.1) APTT (21-31) Seconds PTT Ratio Sodium (136-145) mmol/L Potassium (3.5-5.1) mmol/L Chloride (98-107) mmol/L Carbon Dioxide (21-32) mmol/L Anion Gap (3-11) BUN (6-23) mg/dl Creatinine (0.6-1.4) mg/dl Est Cr Clr Drug Dosing ml/min Est GFR ( Amer) ml/min Est GFR (Non-Af Amer) ml/min BUN/Creatinine Ratio (10-20) Glucose (70-99(Fasting)) mg/dl POC Glucose 179 H 93 120 H (70-99) mg/dl Estimat Average Glucose mg/dl Hemoglobin A1c (4.5-5.6) % Lactate (0.4-2.0) mmol/L Uric Acid (2.6-7.2) mg/dl Calcium (8.6-10.3) mg/dl Ionized Calcium (1.12-1.32) mmol/L Phosphorus (2.5-4.9) mg/dl Magnesium (1.7-2.4) mg/dl Total Bilirubin (0.2-1.0) mg/dl Direct Bilirubin (0-0.2) mg/dl AST (13-39) U/L ALT (7-52) U/L Alkaline Phosphatase (34-104) U/L Troponin I High Sens (0-20) pg/ml Total Protein (6.0-8.3) gm/dl Albumin (3.4-5.0) gm/dl Globulin (2.5-4.0) gm/dl Albumin/Globulin Ratio (0.9-2) Procalcitonin (0-0.5) ng/ml Urine Color Urine Appearance (Clear) Urine pH (4.5-7.5) Ur Specific [place] (1.000-1.030) Urine Protein (Negative) Urine Glucose (UA) (Negative) Urine Ketones (Negative) Urine Blood (Negative) Urine Nitrite (Negative) Urine Bilirubin (Negative) Urine Urobilinogen (Negative) Ur Leukocyte Esterase (Negative) Urine WBC (Auto) (0-5) /hpf Urine RBC (Auto) (0-4) /hpf U Hyaline Cast (Auto) (0-5) /lpf U Epithel Cells (Auto) (0-5) /lpf Urine Bacteria (Auto) (Negative) Ur Renal Epithelial Cell Nasal Screen MRSA (PCR) (Negative) Random Vancomycin (10-20) mcg/ml Adenovirus (PCR) (NotDetected) Anaplasma Smear Babesia Smear B. pertussis DNA (PCR) (NotDetected) B.parapertussis DNA PCR (NotDetected) Lyme Disease IgG Ab (Negative) Lyme Disease IgM Ab (Negative) C. pneumoniae DNA (PCR) (NotDetected) Coronavirus OC43 (PCR) (NotDetected) Coronavirus HKU1 (PCR) (NotDetected) Coronavirus 229E (PCR) (NotDetected) SARS-CoV-2 (PCR) (Negative) Coronavirus NL63 (PCR) (NotDetected) Human Metapneumovir PCR (NotDetected) Influenza Type A (PCR) (Neg) Influenza Type B (PCR) (Neg) M. pneumoniae (PCR) (NotDetected) Parainfluenza 1 (PCR) (NotDetected) Parainfluenza 2 (PCR) (NotDetected) Parainfluenza 3 (PCR) (NotDetected) Parainfluenza 4 (PCR) (NotDetected) RSV (RT-PCR) (Neg) RSV (PCR) (NotDetected) Entero/Rhino (PCR) (NotDetected) Blood Parasites ID Blood Type Antibody Screen Crossmatch 07/26/23 07/27/23 07/27/23 Range/Units 20:56 06:50 07:04 WBC 0.16 L* 0.20 L* (4.8-10.8) K/ul RBC 2.93 L 2.87 L (4.70-6.10) M/uL Hgb 8.8 L 8.4 L (14.0-18.0) g/dl Hct 24.7 L 24.5 L (42.0-52.0) % MCV 84.3 85.4 (80.0-100.0) fL MCH 30.0 29.3 (25.0-34.0) pg MCHC 35.6 34.3 (32.0-36.0) g/dL RDW Std Deviation 42.5 41.6 (36.4-46.3) fL RDW Coeff of Anna 13.5 13.3 (11.5-14.5) % Plt Count 16 L* D 12 L* (130-400) K/uL MPV 9.6 10.2 (9.4-12.4) fL Immature Gran % (Auto) Cancelled Neut % (Auto) Cancelled Lymph % (Auto) Cancelled Mckean % (Auto) Cancelled Eos % (Auto) Cancelled Baso % (Auto) Cancelled Neut # (Auto) Cancelled Lymph # (Auto) Cancelled Mckean # (Auto) Cancelled Eos # (Auto) Cancelled Baso # (Auto) Cancelled Immature Gran # (Auto) Cancelled Neutrophils % (Manual) Cancelled Band Neutrophils % Cancelled Lymphocytes % (Manual) Cancelled Prolymphocyte % Cancelled Reactive Lymphs % (Man) Cancelled Monocytes % (Manual) Cancelled Eosinophils % (Manual) Cancelled Basophils % (Manual) Cancelled Metamyelocytes % (Man) Cancelled Myelocytes % (Man) Cancelled Promyelocytes % (Man) Cancelled Blast Cells % (Manual) Cancelled Plasma Cell % (Manual) Cancelled Other Cells % Cancelled Nucleated RBC % Cancelled Neutrophils # (Manual) Cancelled Band Neutrophils # Cancelled Total Absolute Neuts Cancelled Lymphocytes # (Manual) Cancelled Prolymphocyte # Cancelled Reactive Lymphs # Cancelled Total Abs Lymphocytes Cancelled Monocytes # (Manual) Cancelled Eosinophils # (Manual) Cancelled Basophils # (Manual) Cancelled Metamyelocytes # (Man) Cancelled Myelocytes # (Manual) Cancelled Promyelocytes # (Man) Cancelled Blast Cells # (Man) Cancelled Plasma Cell # (Manual) Cancelled Other Cells # Cancelled Nucleated RBCs # (Man) Cancelled Hypersegmented Neuts Cancelled Hyposegmented Neuts Cancelled Hypogranular Neuts Cancelled Large Granular Lymphs Cancelled # Lrg Granular Lymphs Cancelled Hairy Cells Cancelled Smudge Cells Cancelled Toxic Granulation Cancelled Toxic Vacuolation Cancelled Dohle Bodies Cancelled Becky Rods Cancelled Platelet Estimate (Normal) Hypogranular Platelets Cancelled Giant Platelets Cancelled Platelet Satelliting Cancelled RBC Morphology Cancelled Polychromasia Cancelled Hypochromasia Cancelled Poikilocytosis Cancelled Basophilic Stippling Cancelled Anisocytosis Cancelled Microcytosis Cancelled Macrocytosis Cancelled Spherocytes Cancelled Pappenheimer Bodies Cancelled Sickle Cells Cancelled Target Cells Cancelled Tear Drop Cells Cancelled Ovalocytes Cancelled Stomatocytes Cancelled Guillen-Zellwood Bodies Cancelled Echinocytes Cancelled Acanthocytes (Spur) Cancelled Rouleaux Cancelled RBC Agglutinates Cancelled Schistocytes Cancelled Sezary Cell Cancelled PT (9.0-12.0) Seconds INR (0.9-1.1) APTT (21-31) Seconds PTT Ratio Sodium 134 L (136-145) mmol/L Potassium 4.0 (3.5-5.1) mmol/L Chloride 100 (98-107) mmol/L Carbon Dioxide 29 (21-32) mmol/L Anion Gap 5 (3-11) BUN 11 (6-23) mg/dl Creatinine 0.70 (0.6-1.4) mg/dl Est Cr Clr Drug Dosing 109.3 ml/min Est GFR ( Amer) 111.6 ml/min Est GFR (Non-Af Amer) 96.3 ml/min BUN/Creatinine Ratio 15.7 (10-20) Glucose 136 H (70-99(Fasting)) mg/dl POC Glucose 150 H (70-99) mg/dl Estimat Average Glucose mg/dl Hemoglobin A1c (4.5-5.6) % Lactate (0.4-2.0) mmol/L Uric Acid (2.6-7.2) mg/dl Calcium 7.6 L (8.6-10.3) mg/dl Ionized Calcium (1.12-1.32) mmol/L Phosphorus (2.5-4.9) mg/dl Magnesium (1.7-2.4) mg/dl Total Bilirubin 0.6 (0.2-1.0) mg/dl Direct Bilirubin (0-0.2) mg/dl AST 31 (13-39) U/L ALT 35 (7-52) U/L Alkaline Phosphatase 170 H (34-104) U/L Troponin I High Sens (0-20) pg/ml Total Protein 5.1 L (6.0-8.3) gm/dl Albumin 2.8 L (3.4-5.0) gm/dl Globulin 2.3 L (2.5-4.0) gm/dl Albumin/Globulin Ratio 1.2 (0.9-2) Procalcitonin (0-0.5) ng/ml Urine Color Urine Appearance (Clear) Urine pH (4.5-7.5) Ur Specific [place] (1.000-1.030) Urine Protein (Negative) Urine Glucose (UA) (Negative) Urine Ketones (Negative) Urine Blood (Negative) Urine Nitrite (Negative) Urine Bilirubin (Negative) Urine Urobilinogen (Negative) Ur Leukocyte Esterase (Negative) Urine WBC (Auto) (0-5) /hpf Urine RBC (Auto) (0-4) /hpf U Hyaline Cast (Auto) (0-5) /lpf U Epithel Cells (Auto) (0-5) /lpf Urine Bacteria (Auto) (Negative) Ur Renal Epithelial Cell Nasal Screen MRSA (PCR) (Negative) Random Vancomycin (10-20) mcg/ml Adenovirus (PCR) (NotDetected) Anaplasma Smear Babesia Smear B. pertussis DNA (PCR) (NotDetected) B.parapertussis DNA PCR (NotDetected) Lyme Disease IgG Ab (Negative) Lyme Disease IgM Ab (Negative) C. pneumoniae DNA (PCR) (NotDetected) Coronavirus OC43 (PCR) (NotDetected) Coronavirus HKU1 (PCR) (NotDetected) Coronavirus 229E (PCR) (NotDetected) SARS-CoV-2 (PCR) (Negative) Coronavirus NL63 (PCR) (NotDetected) Human Metapneumovir PCR (NotDetected) Influenza Type A (PCR) (Neg) Influenza Type B (PCR) (Neg) M. pneumoniae (PCR) (NotDetected) Parainfluenza 1 (PCR) (NotDetected) Parainfluenza 2 (PCR) (NotDetected) Parainfluenza 3 (PCR) (NotDetected) Parainfluenza 4 (PCR) (NotDetected) RSV (RT-PCR) (Neg) RSV (PCR) (NotDetected) Entero/Rhino (PCR) (NotDetected) Blood Parasites ID Cancelled Blood Type Antibody Screen Crossmatch 07/27/23 07/27/23 07/27/23 Range/Units 11:30 16:16 19:53 WBC (4.8-10.8) K/ul RBC (4.70-6.10) M/uL Hgb (14.0-18.0) g/dl Hct (42.0-52.0) % MCV (80.0-100.0) fL MCH (25.0-34.0) pg MCHC (32.0-36.0) g/dL RDW Std Deviation (36.4-46.3) fL RDW Coeff of Anna (11.5-14.5) % Plt Count (130-400) K/uL MPV (9.4-12.4) fL Immature Gran % (Auto) Neut % (Auto) Lymph % (Auto) Mckean % (Auto) Eos % (Auto) Baso % (Auto) Neut # (Auto) Lymph # (Auto) Mckean # (Auto) Eos # (Auto) Baso # (Auto) Immature Gran # (Auto) Neutrophils % (Manual) Band Neutrophils % Lymphocytes % (Manual) Prolymphocyte % Reactive Lymphs % (Man) Monocytes % (Manual) Eosinophils % (Manual) Basophils % (Manual) Metamyelocytes % (Man) Myelocytes % (Man) Promyelocytes % (Man) Blast Cells % (Manual) Plasma Cell % (Manual) Other Cells % Nucleated RBC % Neutrophils # (Manual) Band Neutrophils # Total Absolute Neuts Lymphocytes # (Manual) Prolymphocyte # Reactive Lymphs # Total Abs Lymphocytes Monocytes # (Manual) Eosinophils # (Manual) Basophils # (Manual) Metamyelocytes # (Man) Myelocytes # (Manual) Promyelocytes # (Man) Blast Cells # (Man) Plasma Cell # (Manual) Other Cells # Nucleated RBCs # (Man) Hypersegmented Neuts Hyposegmented Neuts Hypogranular Neuts Large Granular Lymphs # Lrg Granular Lymphs Hairy Cells Smudge Cells Toxic Granulation Toxic Vacuolation Dohle Bodies Becky Rods Platelet Estimate (Normal) Hypogranular Platelets Giant Platelets Platelet Satelliting RBC Morphology Polychromasia Hypochromasia Poikilocytosis Basophilic Stippling Anisocytosis Microcytosis Macrocytosis Spherocytes Pappenheimer Bodies Sickle Cells Target Cells Tear Drop Cells Ovalocytes Stomatocytes Gulilen-Zellwood Bodies Echinocytes Acanthocytes (Spur) Rouleaux RBC Agglutinates Schistocytes Sezary Cell PT (9.0-12.0) Seconds INR (0.9-1.1) APTT (21-31) Seconds PTT Ratio Sodium (136-145) mmol/L Potassium (3.5-5.1) mmol/L Chloride (98-107) mmol/L Carbon Dioxide (21-32) mmol/L Anion Gap (3-11) BUN (6-23) mg/dl Creatinine (0.6-1.4) mg/dl Est Cr Clr Drug Dosing ml/min Est GFR ( Amer) ml/min Est GFR (Non-Af Amer) ml/min BUN/Creatinine Ratio (10-20) Glucose (70-99(Fasting)) mg/dl POC Glucose 133 H 149 H 101 H (70-99) mg/dl Estimat Average Glucose mg/dl Hemoglobin A1c (4.5-5.6) % Lactate (0.4-2.0) mmol/L Uric Acid (2.6-7.2) mg/dl Calcium (8.6-10.3) mg/dl Ionized Calcium (1.12-1.32) mmol/L Phosphorus (2.5-4.9) mg/dl Magnesium (1.7-2.4) mg/dl Total Bilirubin (0.2-1.0) mg/dl Direct Bilirubin (0-0.2) mg/dl AST (13-39) U/L ALT (7-52) U/L Alkaline Phosphatase (34-104) U/L Troponin I High Sens (0-20) pg/ml Total Protein (6.0-8.3) gm/dl Albumin (3.4-5.0) gm/dl Globulin (2.5-4.0) gm/dl Albumin/Globulin Ratio (0.9-2) Procalcitonin (0-0.5) ng/ml Urine Color Urine Appearance (Clear) Urine pH (4.5-7.5) Ur Specific [place] (1.000-1.030) Urine Protein (Negative) Urine Glucose (UA) (Negative) Urine Ketones (Negative) Urine Blood (Negative) Urine Nitrite (Negative) Urine Bilirubin (Negative) Urine Urobilinogen (Negative) Ur Leukocyte Esterase (Negative) Urine WBC (Auto) (0-5) /hpf Urine RBC (Auto) (0-4) /hpf U Hyaline Cast (Auto) (0-5) /lpf U Epithel Cells (Auto) (0-5) /lpf Urine Bacteria (Auto) (Negative) Ur Renal Epithelial Cell Nasal Screen MRSA (PCR) (Negative) Random Vancomycin (10-20) mcg/ml Adenovirus (PCR) (NotDetected) Anaplasma Smear Babesia Smear B. pertussis DNA (PCR) (NotDetected) B.parapertussis DNA PCR (NotDetected) Lyme Disease IgG Ab (Negative) Lyme Disease IgM Ab (Negative) C. pneumoniae DNA (PCR) (NotDetected) Coronavirus OC43 (PCR) (NotDetected) Coronavirus HKU1 (PCR) (NotDetected) Coronavirus 229E (PCR) (NotDetected) SARS-CoV-2 (PCR) (Negative) Coronavirus NL63 (PCR) (NotDetected) Human Metapneumovir PCR (NotDetected) Influenza Type A (PCR) (Neg) Influenza Type B (PCR) (Neg) M. pneumoniae (PCR) (NotDetected) Parainfluenza 1 (PCR) (NotDetected) Parainfluenza 2 (PCR) (NotDetected) Parainfluenza 3 (PCR) (NotDetected) Parainfluenza 4 (PCR) (NotDetected) RSV (RT-PCR) (Neg) RSV (PCR) (NotDetected) Entero/Rhino (PCR) (NotDetected) Blood Parasites ID Blood Type Antibody Screen Crossmatch 07/28/23 07/28/23 07/28/23 Range/Units 05:49 06:30 07:25 WBC 0.16 L* (4.8-10.8) K/ul RBC 3.33 L (4.70-6.10) M/uL Hgb 9.8 L (14.0-18.0) g/dl Hct 28.6 L (42.0-52.0) % MCV 85.9 (80.0-100.0) fL MCH 29.4 (25.0-34.0) pg MCHC 34.3 (32.0-36.0) g/dL RDW Std Deviation 42.1 (36.4-46.3) fL RDW Coeff of Anna 13.4 (11.5-14.5) % Plt Count 6 L* (130-400) K/uL MPV 10.4 (9.4-12.4) fL Immature Gran % (Auto) Cancelled Neut % (Auto) Cancelled Lymph % (Auto) Cancelled Mckean % (Auto) Cancelled Eos % (Auto) Cancelled Baso % (Auto) Cancelled Neut # (Auto) Cancelled Lymph # (Auto) Cancelled Mckean # (Auto) Cancelled Eos # (Auto) Cancelled Baso # (Auto) Cancelled Immature Gran # (Auto) Cancelled Neutrophils % (Manual) Cancelled Band Neutrophils % Cancelled Lymphocytes % (Manual) Cancelled Prolymphocyte % Cancelled Reactive Lymphs % (Man) Cancelled Monocytes % (Manual) Cancelled Eosinophils % (Manual) Cancelled Basophils % (Manual) Cancelled Metamyelocytes % (Man) Cancelled Myelocytes % (Man) Cancelled Promyelocytes % (Man) Cancelled Blast Cells % (Manual) Cancelled Plasma Cell % (Manual) Cancelled Other Cells % Cancelled Nucleated RBC % Cancelled Neutrophils # (Manual) Cancelled Band Neutrophils # Cancelled Total Absolute Neuts Cancelled Lymphocytes # (Manual) Cancelled Prolymphocyte # Cancelled Reactive Lymphs # Cancelled Total Abs Lymphocytes Cancelled Monocytes # (Manual) Cancelled Eosinophils # (Manual) Cancelled Basophils # (Manual) Cancelled Metamyelocytes # (Man) Cancelled Myelocytes # (Manual) Cancelled Promyelocytes # (Man) Cancelled Blast Cells # (Man) Cancelled Plasma Cell # (Manual) Cancelled Other Cells # Cancelled Nucleated RBCs # (Man) Cancelled Hypersegmented Neuts Cancelled Hyposegmented Neuts Cancelled Hypogranular Neuts Cancelled Large Granular Lymphs Cancelled # Lrg Granular Lymphs Cancelled Hairy Cells Cancelled Smudge Cells Cancelled Toxic Granulation Cancelled Toxic Vacuolation Cancelled Dohle Bodies Cancelled Becky Rods Cancelled Platelet Estimate (Normal) Hypogranular Platelets Cancelled Giant Platelets Cancelled Platelet Satelliting Cancelled RBC Morphology Cancelled Polychromasia Cancelled Hypochromasia Cancelled Poikilocytosis Cancelled Basophilic Stippling Cancelled Anisocytosis Cancelled Microcytosis Cancelled Macrocytosis Cancelled Spherocytes Cancelled Pappenheimer Bodies Cancelled Sickle Cells Cancelled Target Cells Cancelled Tear Drop Cells Cancelled Ovalocytes Cancelled Stomatocytes Cancelled Guillen-Zellwood Bodies Cancelled Echinocytes Cancelled Acanthocytes (Spur) Cancelled Rouleaux Cancelled RBC Agglutinates Cancelled Schistocytes Cancelled Sezary Cell Cancelled PT (9.0-12.0) Seconds INR (0.9-1.1) APTT (21-31) Seconds PTT Ratio Sodium 135 L (136-145) mmol/L Potassium 3.9 (3.5-5.1) mmol/L Chloride 98 (98-107) mmol/L Carbon Dioxide 29 (21-32) mmol/L Anion Gap 8 (3-11) BUN 12 (6-23) mg/dl Creatinine 0.76 (0.6-1.4) mg/dl Est Cr Clr Drug Dosing 100.7 ml/min Est GFR ( Amer) 107.9 ml/min Est GFR (Non-Af Amer) 93.1 ml/min BUN/Creatinine Ratio 15.8 (10-20) Glucose 123 H (70-99(Fasting)) mg/dl POC Glucose 124 H (70-99) mg/dl Estimat Average Glucose mg/dl Hemoglobin A1c (4.5-5.6) % Lactate (0.4-2.0) mmol/L Uric Acid (2.6-7.2) mg/dl Calcium 8.1 L (8.6-10.3) mg/dl Ionized Calcium (1.12-1.32) mmol/L Phosphorus (2.5-4.9) mg/dl Magnesium (1.7-2.4) mg/dl Total Bilirubin 0.8 (0.2-1.0) mg/dl Direct Bilirubin (0-0.2) mg/dl AST 33 (13-39) U/L ALT 39 (7-52) U/L Alkaline Phosphatase 188 H (34-104) U/L Troponin I High Sens (0-20) pg/ml Total Protein 5.8 L (6.0-8.3) gm/dl Albumin 3.2 L (3.4-5.0) gm/dl Globulin 2.6 (2.5-4.0) gm/dl Albumin/Globulin Ratio 1.2 (0.9-2) Procalcitonin (0-0.5) ng/ml Urine Color Urine Appearance (Clear) Urine pH (4.5-7.5) Ur Specific [place] (1.000-1.030) Urine Protein (Negative) Urine Glucose (UA) (Negative) Urine Ketones (Negative) Urine Blood (Negative) Urine Nitrite (Negative) Urine Bilirubin (Negative) Urine Urobilinogen (Negative) Ur Leukocyte Esterase (Negative) Urine WBC (Auto) (0-5) /hpf Urine RBC (Auto) (0-4) /hpf U Hyaline Cast (Auto) (0-5) /lpf U Epithel Cells (Auto) (0-5) /lpf Urine Bacteria (Auto) (Negative) Ur Renal Epithelial Cell Nasal Screen MRSA (PCR) Negative (Negative) Random Vancomycin (10-20) mcg/ml Adenovirus (PCR) (NotDetected) Anaplasma Smear Babesia Smear B. pertussis DNA (PCR) (NotDetected) B.parapertussis DNA PCR (NotDetected) Lyme Disease IgG Ab (Negative) Lyme Disease IgM Ab (Negative) C. pneumoniae DNA (PCR) (NotDetected) Coronavirus OC43 (PCR) (NotDetected) Coronavirus HKU1 (PCR) (NotDetected) Coronavirus 229E (PCR) (NotDetected) SARS-CoV-2 (PCR) (Negative) Coronavirus NL63 (PCR) (NotDetected) Human Metapneumovir PCR (NotDetected) Influenza Type A (PCR) (Neg) Influenza Type B (PCR) (Neg) M. pneumoniae (PCR) (NotDetected) Parainfluenza 1 (PCR) (NotDetected) Parainfluenza 2 (PCR) (NotDetected) Parainfluenza 3 (PCR) (NotDetected) Parainfluenza 4 (PCR) (NotDetected) RSV (RT-PCR) (Neg) RSV (PCR) (NotDetected) Entero/Rhino (PCR) (NotDetected) Blood Parasites ID Cancelled Blood Type Antibody Screen Crossmatch 07/28/23 07/28/23 07/28/23 Range/Units 11:33 16:37 20:17 WBC (4.8-10.8) K/ul RBC (4.70-6.10) M/uL Hgb (14.0-18.0) g/dl Hct (42.0-52.0) % MCV (80.0-100.0) fL MCH (25.0-34.0) pg MCHC (32.0-36.0) g/dL RDW Std Deviation (36.4-46.3) fL RDW Coeff of Anna (11.5-14.5) % Plt Count (130-400) K/uL MPV (9.4-12.4) fL Immature Gran % (Auto) Neut % (Auto) Lymph % (Auto) Mckean % (Auto) Eos % (Auto) Baso % (Auto) Neut # (Auto) Lymph # (Auto) Mckean # (Auto) Eos # (Auto) Baso # (Auto) Immature Gran # (Auto) Neutrophils % (Manual) Band Neutrophils % Lymphocytes % (Manual) Prolymphocyte % Reactive Lymphs % (Man) Monocytes % (Manual) Eosinophils % (Manual) Basophils % (Manual) Metamyelocytes % (Man) Myelocytes % (Man) Promyelocytes % (Man) Blast Cells % (Manual) Plasma Cell % (Manual) Other Cells % Nucleated RBC % Neutrophils # (Manual) Band Neutrophils # Total Absolute Neuts Lymphocytes # (Manual) Prolymphocyte # Reactive Lymphs # Total Abs Lymphocytes Monocytes # (Manual) Eosinophils # (Manual) Basophils # (Manual) Metamyelocytes # (Man) Myelocytes # (Manual) Promyelocytes # (Man) Blast Cells # (Man) Plasma Cell # (Manual) Other Cells # Nucleated RBCs # (Man) Hypersegmented Neuts Hyposegmented Neuts Hypogranular Neuts Large Granular Lymphs # Lrg Granular Lymphs Hairy Cells Smudge Cells Toxic Granulation Toxic Vacuolation Dohle Bodies Becky Rods Platelet Estimate (Normal) Hypogranular Platelets Giant Platelets Platelet Satelliting RBC Morphology Polychromasia Hypochromasia Poikilocytosis Basophilic Stippling Anisocytosis Microcytosis Macrocytosis Spherocytes Pappenheimer Bodies Sickle Cells Target Cells Tear Drop Cells Ovalocytes Stomatocytes Guillen-Zellwood Bodies Echinocytes Acanthocytes (Spur) Rouleaux RBC Agglutinates Schistocytes Sezary Cell PT (9.0-12.0) Seconds INR (0.9-1.1) APTT (21-31) Seconds PTT Ratio Sodium (136-145) mmol/L Potassium (3.5-5.1) mmol/L Chloride (98-107) mmol/L Carbon Dioxide (21-32) mmol/L Anion Gap (3-11) BUN (6-23) mg/dl Creatinine (0.6-1.4) mg/dl Est Cr Clr Drug Dosing ml/min Est GFR ( Amer) ml/min Est GFR (Non-Af Amer) ml/min BUN/Creatinine Ratio (10-20) Glucose (70-99(Fasting)) mg/dl POC Glucose 120 H 136 H 170 H (70-99) mg/dl Estimat Average Glucose mg/dl Hemoglobin A1c (4.5-5.6) % Lactate (0.4-2.0) mmol/L Uric Acid (2.6-7.2) mg/dl Calcium (8.6-10.3) mg/dl Ionized Calcium (1.12-1.32) mmol/L Phosphorus (2.5-4.9) mg/dl Magnesium (1.7-2.4) mg/dl Total Bilirubin (0.2-1.0) mg/dl Direct Bilirubin (0-0.2) mg/dl AST (13-39) U/L ALT (7-52) U/L Alkaline Phosphatase (34-104) U/L Troponin I High Sens (0-20) pg/ml Total Protein (6.0-8.3) gm/dl Albumin (3.4-5.0) gm/dl Globulin (2.5-4.0) gm/dl Albumin/Globulin Ratio (0.9-2) Procalcitonin (0-0.5) ng/ml Urine Color Urine Appearance (Clear) Urine pH (4.5-7.5) Ur Specific [place] (1.000-1.030) Urine Protein (Negative) Urine Glucose (UA) (Negative) Urine Ketones (Negative) Urine Blood (Negative) Urine Nitrite (Negative) Urine Bilirubin (Negative) Urine Urobilinogen (Negative) Ur Leukocyte Esterase (Negative) Urine WBC (Auto) (0-5) /hpf Urine RBC (Auto) (0-4) /hpf U Hyaline Cast (Auto) (0-5) /lpf U Epithel Cells (Auto) (0-5) /lpf Urine Bacteria (Auto) (Negative) Ur Renal Epithelial Cell Nasal Screen MRSA (PCR) (Negative) Random Vancomycin (10-20) mcg/ml Adenovirus (PCR) (NotDetected) Anaplasma Smear Babesia Smear B. pertussis DNA (PCR) (NotDetected) B.parapertussis DNA PCR (NotDetected) Lyme Disease IgG Ab (Negative) Lyme Disease IgM Ab (Negative) C. pneumoniae DNA (PCR) (NotDetected) Coronavirus OC43 (PCR) (NotDetected) Coronavirus HKU1 (PCR) (NotDetected) Coronavirus 229E (PCR) (NotDetected) SARS-CoV-2 (PCR) (Negative) Coronavirus NL63 (PCR) (NotDetected) Human Metapneumovir PCR (NotDetected) Influenza Type A (PCR) (Neg) Influenza Type B (PCR) (Neg) M. pneumoniae (PCR) (NotDetected) Parainfluenza 1 (PCR) (NotDetected) Parainfluenza 2 (PCR) (NotDetected) Parainfluenza 3 (PCR) (NotDetected) Parainfluenza 4 (PCR) (NotDetected) RSV (RT-PCR) (Neg) RSV (PCR) (NotDetected) Entero/Rhino (PCR) (NotDetected) Blood Parasites ID Blood Type Antibody Screen Crossmatch 07/29/23 07/29/23 07/29/23 Range/Units 06:08 07:34 11:45 WBC 0.21 L* (4.8-10.8) K/ul RBC 2.77 L (4.70-6.10) M/uL Hgb 8.1 L (14.0-18.0) g/dl Hct 23.9 L (42.0-52.0) % MCV 86.3 (80.0-100.0) fL MCH 29.2 (25.0-34.0) pg MCHC 33.9 (32.0-36.0) g/dL RDW Std Deviation 42.6 (36.4-46.3) fL RDW Coeff of Anna 13.5 (11.5-14.5) % Plt Count 9 L* (130-400) K/uL MPV 10.1 (9.4-12.4) fL Immature Gran % (Auto) Cancelled Neut % (Auto) Cancelled Lymph % (Auto) Cancelled Mckean % (Auto) Cancelled Eos % (Auto) Cancelled Baso % (Auto) Cancelled Neut # (Auto) Cancelled Lymph # (Auto) Cancelled Mckean # (Auto) Cancelled Eos # (Auto) Cancelled Baso # (Auto) Cancelled Immature Gran # (Auto) Cancelled Neutrophils % (Manual) Cancelled Band Neutrophils % Cancelled Lymphocytes % (Manual) Cancelled Prolymphocyte % Cancelled Reactive Lymphs % (Man) Cancelled Monocytes % (Manual) Cancelled Eosinophils % (Manual) Cancelled Basophils % (Manual) Cancelled Metamyelocytes % (Man) Cancelled Myelocytes % (Man) Cancelled Promyelocytes % (Man) Cancelled Blast Cells % (Manual) Cancelled Plasma Cell % (Manual) Cancelled Other Cells % Cancelled Nucleated RBC % Cancelled Neutrophils # (Manual) Cancelled Band Neutrophils # Cancelled Total Absolute Neuts Cancelled Lymphocytes # (Manual) Cancelled Prolymphocyte # Cancelled Reactive Lymphs # Cancelled Total Abs Lymphocytes Cancelled Monocytes # (Manual) Cancelled Eosinophils # (Manual) Cancelled Basophils # (Manual) Cancelled Metamyelocytes # (Man) Cancelled Myelocytes # (Manual) Cancelled Promyelocytes # (Man) Cancelled Blast Cells # (Man) Cancelled Plasma Cell # (Manual) Cancelled Other Cells # Cancelled Nucleated RBCs # (Man) Cancelled Hypersegmented Neuts Cancelled Hyposegmented Neuts Cancelled Hypogranular Neuts Cancelled Large Granular Lymphs Cancelled # Lrg Granular Lymphs Cancelled Hairy Cells Cancelled Smudge Cells Cancelled Toxic Granulation Cancelled Toxic Vacuolation Cancelled Dohle Bodies Cancelled Becky Rods Cancelled Platelet Estimate (Normal) Hypogranular Platelets Cancelled Giant Platelets Cancelled Platelet Satelliting Cancelled RBC Morphology Cancelled Polychromasia Cancelled Hypochromasia Cancelled Poikilocytosis Cancelled Basophilic Stippling Cancelled Anisocytosis Cancelled Microcytosis Cancelled Macrocytosis Cancelled Spherocytes Cancelled Pappenheimer Bodies Cancelled Sickle Cells Cancelled Target Cells Cancelled Tear Drop Cells Cancelled Ovalocytes Cancelled Stomatocytes Cancelled Guillen-Zellwood Bodies Cancelled Echinocytes Cancelled Acanthocytes (Spur) Cancelled Rouleaux Cancelled RBC Agglutinates Cancelled Schistocytes Cancelled Sezary Cell Cancelled PT (9.0-12.0) Seconds INR (0.9-1.1) APTT (21-31) Seconds PTT Ratio Sodium 135 L (136-145) mmol/L Potassium 4.1 (3.5-5.1) mmol/L Chloride 99 (98-107) mmol/L Carbon Dioxide 32 (21-32) mmol/L Anion Gap 4 (3-11) BUN 13 (6-23) mg/dl Creatinine 0.71 (0.6-1.4) mg/dl Est Cr Clr Drug Dosing 107.8 ml/min Est GFR ( Amer) 111.0 ml/min Est GFR (Non-Af Amer) 95.7 ml/min BUN/Creatinine Ratio 18.3 (10-20) Glucose 119 H (70-99(Fasting)) mg/dl POC Glucose 127 H 99 (70-99) mg/dl Estimat Average Glucose mg/dl Hemoglobin A1c (4.5-5.6) % Lactate (0.4-2.0) mmol/L Uric Acid (2.6-7.2) mg/dl Calcium 7.6 L (8.6-10.3) mg/dl Ionized Calcium (1.12-1.32) mmol/L Phosphorus (2.5-4.9) mg/dl Magnesium (1.7-2.4) mg/dl Total Bilirubin 0.7 (0.2-1.0) mg/dl Direct Bilirubin (0-0.2) mg/dl AST 27 (13-39) U/L ALT 33 (7-52) U/L Alkaline Phosphatase 149 H (34-104) U/L Troponin I High Sens (0-20) pg/ml Total Protein 5.1 L (6.0-8.3) gm/dl Albumin 2.8 L (3.4-5.0) gm/dl Globulin 2.3 L (2.5-4.0) gm/dl Albumin/Globulin Ratio 1.2 (0.9-2) Procalcitonin (0-0.5) ng/ml Urine Color Urine Appearance (Clear) Urine pH (4.5-7.5) Ur Specific [place] (1.000-1.030) Urine Protein (Negative) Urine Glucose (UA) (Negative) Urine Ketones (Negative) Urine Blood (Negative) Urine Nitrite (Negative) Urine Bilirubin (Negative) Urine Urobilinogen (Negative) Ur Leukocyte Esterase (Negative) Urine WBC (Auto) (0-5) /hpf Urine RBC (Auto) (0-4) /hpf U Hyaline Cast (Auto) (0-5) /lpf U Epithel Cells (Auto) (0-5) /lpf Urine Bacteria (Auto) (Negative) Ur Renal Epithelial Cell Nasal Screen MRSA (PCR) (Negative) Random Vancomycin (10-20) mcg/ml Adenovirus (PCR) (NotDetected) Anaplasma Smear Babesia Smear B. pertussis DNA (PCR) (NotDetected) B.parapertussis DNA PCR (NotDetected) Lyme Disease IgG Ab (Negative) Lyme Disease IgM Ab (Negative) C. pneumoniae DNA (PCR) (NotDetected) Coronavirus OC43 (PCR) (NotDetected) Coronavirus HKU1 (PCR) (NotDetected) Coronavirus 229E (PCR) (NotDetected) SARS-CoV-2 (PCR) (Negative) Coronavirus NL63 (PCR) (NotDetected) Human Metapneumovir PCR (NotDetected) Influenza Type A (PCR) (Neg) Influenza Type B (PCR) (Neg) M. pneumoniae (PCR) (NotDetected) Parainfluenza 1 (PCR) (NotDetected) Parainfluenza 2 (PCR) (NotDetected) Parainfluenza 3 (PCR) (NotDetected) Parainfluenza 4 (PCR) (NotDetected) RSV (RT-PCR) (Neg) RSV (PCR) (NotDetected) Entero/Rhino (PCR) (NotDetected) Blood Parasites ID Cancelled Blood Type Antibody Screen Crossmatch 07/29/23 Range/Units 16:21 WBC (4.8-10.8) K/ul RBC (4.70-6.10) M/uL Hgb (14.0-18.0) g/dl Hct (42.0-52.0) % MCV (80.0-100.0) fL MCH (25.0-34.0) pg MCHC (32.0-36.0) g/dL RDW Std Deviation (36.4-46.3) fL RDW Coeff of Anna (11.5-14.5) % Plt Count (130-400) K/uL MPV (9.4-12.4) fL Immature Gran % (Auto) Neut % (Auto) Lymph % (Auto) Mckean % (Auto) Eos % (Auto) Baso % (Auto) Neut # (Auto) Lymph # (Auto) Mckean # (Auto) Eos # (Auto) Baso # (Auto) Immature Gran # (Auto) Neutrophils % (Manual) Band Neutrophils % Lymphocytes % (Manual) Prolymphocyte % Reactive Lymphs % (Man) Monocytes % (Manual) Eosinophils % (Manual) Basophils % (Manual) Metamyelocytes % (Man) Myelocytes % (Man) Promyelocytes % (Man) Blast Cells % (Manual) Plasma Cell % (Manual) Other Cells % Nucleated RBC % Neutrophils # (Manual) Band Neutrophils # Total Absolute Neuts Lymphocytes # (Manual) Prolymphocyte # Reactive Lymphs # Total Abs Lymphocytes Monocytes # (Manual) Eosinophils # (Manual) Basophils # (Manual) Metamyelocytes # (Man) Myelocytes # (Manual) Promyelocytes # (Man) Blast Cells # (Man) Plasma Cell # (Manual) Other Cells # Nucleated RBCs # (Man) Hypersegmented Neuts Hyposegmented Neuts Hypogranular Neuts Large Granular Lymphs # Lrg Granular Lymphs Hairy Cells Smudge Cells Toxic Granulation Toxic Vacuolation Dohle Bodies Becky Rods Platelet Estimate (Normal) Hypogranular Platelets Giant Platelets Platelet Satelliting RBC Morphology Polychromasia Hypochromasia Poikilocytosis Basophilic Stippling Anisocytosis Microcytosis Macrocytosis Spherocytes Pappenheimer Bodies Sickle Cells Target Cells Tear Drop Cells Ovalocytes Stomatocytes Guillen-Zellwood Bodies Echinocytes Acanthocytes (Spur) Rouleaux RBC Agglutinates Schistocytes Sezary Cell PT (9.0-12.0) Seconds INR (0.9-1.1) APTT (21-31) Seconds PTT Ratio Sodium (136-145) mmol/L Potassium (3.5-5.1) mmol/L Chloride (98-107) mmol/L Carbon Dioxide (21-32) mmol/L Anion Gap (3-11) BUN (6-23) mg/dl Creatinine (0.6-1.4) mg/dl Est Cr Clr Drug Dosing ml/min Est GFR ( Amer) ml/min Est GFR (Non-Af Amer) ml/min BUN/Creatinine Ratio (10-20) Glucose (70-99(Fasting)) mg/dl POC Glucose 113 H (70-99) mg/dl Estimat Average Glucose mg/dl Hemoglobin A1c (4.5-5.6) % Lactate (0.4-2.0) mmol/L Uric Acid (2.6-7.2) mg/dl Calcium (8.6-10.3) mg/dl Ionized Calcium (1.12-1.32) mmol/L Phosphorus (2.5-4.9) mg/dl Magnesium (1.7-2.4) mg/dl Total Bilirubin (0.2-1.0) mg/dl Direct Bilirubin (0-0.2) mg/dl AST (13-39) U/L ALT (7-52) U/L Alkaline Phosphatase (34-104) U/L Troponin I High Sens (0-20) pg/ml Total Protein (6.0-8.3) gm/dl Albumin (3.4-5.0) gm/dl Globulin (2.5-4.0) gm/dl Albumin/Globulin Ratio (0.9-2) Procalcitonin (0-0.5) ng/ml Urine Color Urine Appearance (Clear) Urine pH (4.5-7.5) Ur Specific [place] (1.000-1.030) Urine Protein (Negative) Urine Glucose (UA) (Negative) Urine Ketones (Negative) Urine Blood (Negative) Urine Nitrite (Negative) Urine Bilirubin (Negative) Urine Urobilinogen (Negative) Ur Leukocyte Esterase (Negative) Urine WBC (Auto) (0-5) /hpf Urine RBC (Auto) (0-4) /hpf U Hyaline Cast (Auto) (0-5) /lpf U Epithel Cells (Auto) (0-5) /lpf Urine Bacteria (Auto) (Negative) Ur Renal Epithelial Cell Nasal Screen MRSA (PCR) (Negative) Random Vancomycin (10-20) mcg/ml Adenovirus (PCR) (NotDetected) Anaplasma Smear Babesia Smear B. pertussis DNA (PCR) (NotDetected) B.parapertussis DNA PCR (NotDetected) Lyme Disease IgG Ab (Negative) Lyme Disease IgM Ab (Negative) C. pneumoniae DNA (PCR) (NotDetected) Coronavirus OC43 (PCR) (NotDetected) Coronavirus HKU1 (PCR) (NotDetected) Coronavirus 229E (PCR) (NotDetected) SARS-CoV-2 (PCR) (Negative) Coronavirus NL63 (PCR) (NotDetected) Human Metapneumovir PCR (NotDetected) Influenza Type A (PCR) (Neg) Influenza Type B (PCR) (Neg) M. pneumoniae (PCR) (NotDetected) Parainfluenza 1 (PCR) (NotDetected) Parainfluenza 2 (PCR) (NotDetected) Parainfluenza 3 (PCR) (NotDetected) Parainfluenza 4 (PCR) (NotDetected) RSV (RT-PCR) (Neg) RSV (PCR) (NotDetected) Entero/Rhino (PCR) (NotDetected) Blood Parasites ID Blood Type Antibody Screen Crossmatch Diagnostic Findings XR chest 1V portable CLINICAL HISTORY: Fever. Evaluate for pneumonia. COMPARISON STUDY: Chest CT June 29, 2023. Chest radiograph July 24, 2023. FINDINGS: Right internal jugular [id number] is unchanged in position. Cardiomegaly is unchanged. There is no pneumothorax or pleural effusion. There is no consolidation to suggest pneumonia. Pulmonary vascularity is normal. The appearance of the chest is unchanged. IMPRESSION: No acute cardiopulmonary findings. No consolidation to suggest pneumonia. ACT 112: Negative or not required by law.
[2023-07-29] MEDS: TAMSULOSIN HCL 0.4 MG CAP PO SCH (20:40)
[2023-07-29] MEDS: FINASTERIDE 5 MG TAB PO SCH (20:40)
[2023-07-30] MEDS: MEROPENEM 500 MG in SYRINGE 0 ML IV SCH ×4 (01:17→20:09)
[2023-07-30 06:42] LABS: BUN Creatinine Ratio 18.3 (10-20); Calcium 7.7 mg/dl (8.6-10.3); Creatinine Clr Calc Pharmacy 107.8 ml/min; Est GFR (Non-African American) 95.7 ml/min; Potassium 3.8 mmol/L (3.5-5.1)
[2023-07-30 06:46] LABS: Hematocrit (blood only) 24.3 % (42.0-52.0); Hemoglobin 8.3 g/dl (14.0-18.0); Mean Corpuscular Hemoglobin 29.3 pg (25.0-34.0); Mean Corpuscular Hgb Conc 34.2 g/dL (32.0-36.0); Mean Corpuscular Volume 85.9 fL (80.0-100.0); Mean Platelet Volume 10.5 fL (9.4-12.4); Platelet Count 9 K/uL (130-400); RDW Coefficient of Variation 13.4 % (11.5-14.5); RDW Standard Deviation 42.1 fL (36.4-46.3); Red Blood Count 2.83 M/uL (4.70-6.10); White Blood Count 0.18 K/ul (4.8-10.8)
[2023-07-30] MEDS: INSULIN ASPART PER UNIT CHARGE SC SCH ×4 (09:03→21:04)
[2023-07-30] MEDS: NYSTATIN SUSP 500,000 U/5 ML UDC PO SCH ×2 (09:13→20:09)
[2023-07-30] MEDS: CEROVITE ADV FORMULA TAB PO SCH (09:14)
[2023-07-30] MEDS: ACYCLOVIR 400 MG TAB PO SCH ×2 (09:14→20:09)
[2023-07-30] MEDS: AMIODARONE 200 MG TAB PO SCH (09:14)
[2023-07-30] MEDS: ESCITALOPRAM OXALATE 10 MG TAB PO SCH (09:14)
[2023-07-30] MEDS: amLODIPine BESYLATE 5 MG TAB PO SCH (09:14)
[2023-07-30] MEDS: POTASSIUM CHLORIDE 10 MEQ TABCR PO SCH (09:14)
[2023-07-30] MEDS: FUROSEMIDE 40 MG TAB PO SCH (09:15)
[2023-07-30] MEDS: GABAPENTIN 100 MG CAP PO SCH ×3 (09:15→20:09)
[2023-07-30] MEDS: ROSUVASTATIN CALCIUM 10 MG TAB PO SCH (09:15)
[2023-07-30] MEDS: CHLORHEXIDINE GLUCONATE 0.12% 480 ML MT SCH ×2 (09:15→20:10)
[2023-07-30] MEDS: LOSARTAN POTASSIUM 50 MG TAB PO SCH (09:15)
[2023-07-30] MEDS: PANTOprazole 40 MG TAB PO SCH (09:15)
[2023-07-30 10:07] LABS: Ehrlichia chaff DNA Bld Negative (Negative)
[2023-07-30] MEDS: oxyCODONE HCL IR 5 MG TAB (IMMEDIATE RELEASE) PO PRN (13:08)
--- NOTE | 2023-07-30 14:10 | Hospitalist Progress Note ---
Date of Service July 30, 2023 Assessment & Plan (1) Sepsis: (2) Pancytopenia: (3) Hairy leukoplakia of tongue: (4) AML (acute myeloid leukemia) in relapse: (5) Neutropenic fever: (6) Atrial fibrillation: (7) Anemia: (8) Diabetes mellitus, type 2: (9) Hyperlipidemia: (10) Hypertension: Plan Pt is a 68 yoM with PMHx of relapsed AML with chemo on hold since Apr 2023, pancytopenia requiring multiple transfusions of pRBCs and platelets over the past few months, HFrEF (Grade 1 diastolic dysfunction), persistent atrial fib no longer on anticoagulation, DMII, HTN, BPH admitted with febrile neutropenia. Febrile Neutropenia in the setting of Relapsed AML Patient presented to the ED with fever and chills. He was on Levaquin as per infectious disease as well as acyclovir and Cresemba for prophylaxis against infection. Chest x-rayno acute findings. UA not suggestive of infection Lyme screening negative Blood culture on July 24July 28NGTD Fungal culture -NGTD CMV, Rickettsial panel anaplasmosis pending histo galactomannan pending Biofire respiratory panel negative Continues to be leukopenic, anemic and thrombocytopenic Continue meropenem ID consulted- appreciate recs -recommended removing pt's port as source of infection -General Surgery contacted: recommended transfusing platelets with goal of 50K for port to be removed. Unfortunately, blood bank cannot supply enough platelets. 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 -Case discussed with [facility] [place], [facility] heme[facility]onc and [facility] General surgery (pt preferred [facility] over [facility]) on 07/30- heme/onc advised that pt would need HLA matched platelets at this time, limited supply there as well. General surgery advised that with limited platelets there, pt would at risk of bleeding to during the procedure there as well. Transfer was not advised, heme/onc advised that infection was stabilized and to continue with IV antibiotics, treat the AML and consider port removal at a later point once pt's counts have improved on their own through AML treatment. -Case discussed with ID once more (Dr Bourne) on 07/30- advised to continue with IV Meropenem. Relapsed AML chemotherapy and on hold since April 2023 secondary to pancytopenia Last chemotherapy was in between April 08 to april 11, 2023 He was recently started on 480 mcg G-CSF twice a week due to persistent neutropenia. His last dose was on July 24, 2023. Plan is to give twice a week dose on Mondays and . S/p 9 units of platelets and 2 units of packed RBC during the hospitalization S/p Neupogen 480 mg on July 28, 2023 Home prophylaxis with levaquin, acyclovir and Cresemba. Holding ppx levaquin for now. Continue home acyclovir and cresemba. Follows with (Dr Valerio while Dr Killian away) Atrial fibrillation Rate control with amiodarone Not on anticoagulation due to thrombocytopenia Diabetes mellitus, type 2 A1C of 7.3 Holding metformin, ISS with accuchecks achs Continue gabapentin for neuropathy Hyperlipidemia Cont statin therapy Hypertension Continue Lasix (with K+) and losartan, amlodipine Continue to monitor BP Hairy leukoplakia of the tongue Tongue lesion Diagnosed by ENT during hospitalization in early July Continue Peridex Mood Continue Lexapro BPH Continue flomax and proscar DVT ppx: teds, scds Diet: HH/DM diet CODE: FULL Dispo: Home with Admission and Anticipated Discharge Date Admission Date: July 24, 2023 Subjective Pt seen in the AM. Per General surgery, needs about 4U platelets transfused to get platelets to above 50 to have port removed. Discussed with General Surgery that only 2U available at this time, and another 2 to get here at about 8pm. General Surgery advising transfer. Transfer center contacted and advised by [facility] heme[place]onc and Trauma surgery there that pt alloimmunized, will require HLA matched product which they have a limited supply of. They dvised that taking out the port can cause pt to bleed to at this time. Advised that transfer not needed at this time. continue to treat with IV antibiotics and treat AML until counts recover on its own. Consider port removal at that time. Pt states that he is still having subjective fevers and chills. Otherwise denied acute concerns. Review of Systems Review of Systems: All systems reviewed & are unremarkable except as noted in Subjective Physical Exam Physical Exam: General: Alert, oriented. No acute distress Skin: No noted rashes or bruises Psych: Appropriate mood and affect Neuro:able to move as needed in bed HEENT: NC/AT Chest: Nontender to palpation. CV: RRR Resp: no increased effort of breathing. Abdomen: Soft, slightly tender Extremities: No edema in lower extremities bilaterally. Results & Data Results & Data Vital Signs (Past 12 Hours) Vital Signs Temp Pulse Pulse Resp BP BP Pulse Ox 07/30/23 11:43 36.6 C 81 14 107/66 94 07/30/23 11:13 76 07/30/23 11:12 36.6 C 71 12 96/62 L 94 07/30/23 10:42 36.5 C 76 14 116/80 94 07/30/23 10:27 36.5 C 72 14 113/80 93 07/30/23 10:07 37.0 C 62 12 120/75 94 07/30/23 08:00 74 07/30/23 07:18 37.6 C H 71 18 133/75 92 O2 Del Method 07/30/23 11:43 07/30/23 11:13 07/30/23 11:12 07/30/23 10:42 07/30/23 10:27 07/30/23 10:07 07/30/23 08:00 07/30/23 07:18 Room Air Critical Care Time Prolonged Care Time I spent a total of50 minutes of prolonged care time coordinating, documenting, and providing care for this patient excluding time spent in the performance of separately billed services. Case discussed with transfer center, [facility] hematology oncology department Dr Hernandez and General Surgery Dr. Light to determine need for transfer. Case then further discussed with Dr Bourne from Infectious Disease at [facility] for next steps. Pt and nursing then notified and updated that transfer was declined by [facility] at this time. (6) Atrial fibrillation Atrial fibrillation type: unspecified Qualified Code(s): I48.91 - Unspecified atrial fibrillation (7) Anemia Anemia type: unspecified type Qualified Code(s): D64.9 - Anemia, unspecified
[2023-07-30 18:17] LABS: Babesia microti DNA Not Detected (Not Detected); Fungitell (1-3)-B-D-Glucan <31 pg/mL
[2023-07-30 19:38] LABS: Q Fever IgG, Phase I NEGATIVE; Q Fever Phase I IgM Antibody NEGATIVE; Q Fever Phase II IgG Antibody NEGATIVE; Q Fever Phase II IgM Antibody NEGATIVE; R. typhi IgG Ab NOT DETECTED; R. typhi IgM Ab NOT DETECTED; RMSF IgG Ab NOT DETECTED; RMSF IgM Ab NOT DETECTED
[2023-07-30] MEDS: ACETAMINOPHEN 325 MG TAB PO PRN (19:53)
[2023-07-30] MEDS: TAMSULOSIN HCL 0.4 MG CAP PO SCH (20:09)
[2023-07-30] MEDS: ISAVUCONAZONIUM SULFATE 186 MG PO SCH (20:13)
[2023-07-30] MEDS: FINASTERIDE 5 MG TAB PO SCH (20:45)
[2023-07-31] MEDS: MEROPENEM 500 MG in SYRINGE 0 ML IV SCH ×4 (02:30→21:14)
[2023-07-31] MEDS: ACETAMINOPHEN 325 MG TAB PO PRN ×2 (04:59→15:45)
[2023-07-31] MEDS: oxyCODONE HCL IR 5 MG TAB (IMMEDIATE RELEASE) PO PRN (05:00)
[2023-07-31] MEDS: PANTOprazole 40 MG TAB PO SCH (06:15)
[2023-07-31 07:10] LABS: Hematocrit (blood only) 22.8 % (42.0-52.0); Hemoglobin 7.7 g/dl (14.0-18.0); Mean Corpuscular Hemoglobin 29.1 pg (25.0-34.0); Mean Corpuscular Hgb Conc 33.8 g/dL (32.0-36.0); Mean Platelet Volume 10.1 fL (9.4-12.4); Platelet Count 10 K/uL (130-400); RDW Coefficient of Variation 13.5 % (11.5-14.5); RDW Standard Deviation 42.6 fL (36.4-46.3); Red Blood Count 2.65 M/uL (4.70-6.10); White Blood Count 0.13 K/ul (4.8-10.8)
[2023-07-31 07:21] LABS: BUN Creatinine Ratio 18.6 (10-20); Calcium 7.7 mg/dl (8.6-10.3); Creatinine Clr Calc Pharmacy 109.3 ml/min; Est GFR (African American) 111.6 ml/min; Est GFR (Non-African American) 96.3 ml/min; Phosphorus 2.3 mg/dl (2.5-4.9)
[2023-07-31] MEDS ORDERED: SODIUM PHOSPHATE 3 MMOL/1 ML INFUSION IV STA (09:00)
[2023-07-31] MEDS ORDERED: SODIUM PHOSPHATE 21 MMOL in SODIUM CHLORIDE 0.9% 500 ML IV ONE (09:15)
[2023-07-31] MEDS: GABAPENTIN 100 MG CAP PO SCH ×3 (09:24→21:18)
[2023-07-31] MEDS: AMIODARONE 200 MG TAB PO SCH (09:24)
[2023-07-31] MEDS: ACYCLOVIR 400 MG TAB PO SCH ×3 (09:24→21:17)
[2023-07-31] MEDS: amLODIPine BESYLATE 5 MG TAB PO SCH (09:25)
[2023-07-31] MEDS: LOSARTAN POTASSIUM 50 MG TAB PO SCH (09:26)
[2023-07-31] MEDS: FUROSEMIDE 40 MG TAB PO SCH (09:26)
[2023-07-31] MEDS: NYSTATIN SUSP 500,000 U/5 ML UDC PO SCH ×2 (09:26→21:16)
[2023-07-31] MEDS: ESCITALOPRAM OXALATE 10 MG TAB PO SCH (09:26)
[2023-07-31] MEDS: ROSUVASTATIN CALCIUM 10 MG TAB PO SCH (09:26)
[2023-07-31] MEDS: CEROVITE ADV FORMULA TAB PO SCH (09:26)
[2023-07-31] MEDS: POTASSIUM CHLORIDE 10 MEQ TABCR PO SCH (09:26)
[2023-07-31] MEDS: ISAVUCONAZONIUM SULFATE 186 MG PO SCH ×2 (09:27→21:20)
[2023-07-31] MEDS: CHLORHEXIDINE GLUCONATE 0.12% 480 ML MT SCH ×2 (09:28→21:14)
[2023-07-31] MEDS: INSULIN ASPART PER UNIT CHARGE SC SCH ×4 (09:38→21:09)
[2023-07-31] MEDS: POT PHOSPHATE MONOBASIC W/ SOD TAB PO SCH ×4 (09:38→22:07)
--- NOTE | 2023-07-31 10:31 | Hospitalist Progress Note ---
Date of Service July 31, 2023 Assessment & Plan (1) Sepsis: (2) Pancytopenia: (3) Hairy leukoplakia of tongue: (4) AML (acute myeloid leukemia) in relapse: (5) Neutropenic fever: (6) Atrial fibrillation: (7) Anemia: (8) Diabetes mellitus, type 2: (9) Hyperlipidemia: (10) Hypertension: Plan Pt is a 68 yoM with PMHx of relapsed AML with chemo on hold since Apr 2023, pancytopenia requiring multiple transfusions of pRBCs and platelets over the past few months, HFrEF (Grade 1 diastolic dysfunction), persistent atrial fib no longer on anticoagulation, DMII, HTN, BPH admitted with febrile neutropenia. Febrile Neutropenia in the setting of Relapsed AML Patient presented to the ED with fever and chills. He was on Levaquin as per infectious disease as well as acyclovir and Cresemba for prophylaxis against infection. Chest x-rayno acute findings. UA not suggestive of infection Lyme screening negative Blood culture on July 24July 28NGTD Fungal culture -NGTD CMV, Rickettsial panel anaplasmosis pending histo galactomannan pending Biofire respiratory panel negative Continues to be leukopenic, anemic and thrombocytopenic Continue meropenem ID consulted- appreciate recs -recommended removing pt's port as source of infection -General Surgery contacted: recommended transfusing platelets with goal of 50K for port to be removed. Unfortunately, blood bank cannot supply enough platelets. 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 -Case discussed with [facility] transfer center, [facility] heme/onc and [facility] General surgery (pt preferred [facility]) on 07/30- heme/onc advised that pt would need HLA matched platelets at this time, limited supply there as well. General surgery advised that with limited platelets there, pt would at risk of bleeding to during the procedure there as well. Transfer was not advised, heme/onc advised that infection was stabilized and to continue with IV antibiotics, treat the AML and consider port removal at a later point once pt's counts have improved on their own through AML treatment. -Case discussed with ID once more (Dr Bourne) on 07/30- advised to continue with IV Meropenem. 07/31- Case further discussed with ID Dr Bourne- recommending repeating blood cultures from the port, addition of IV Vancomycin. Advised consider discharge only when pt has been free from fever for 48hours. Continue IV antibiotics until port removed. Relapsed AML chemotherapy and on hold since April 2023 secondary to pancytopenia Last chemotherapy was in between April 08 to april 11, 2023 He was recently started on 480 mcg G-CSF twice a week due to persistent neutropenia. His last dose was on July 24, 2023. Plan is to give twice a week dose on Mondays and . S/p 9 units of platelets and 2 units of packed RBC during the hospitalization S/p Neupogen 480 mg on July 28, 2023 Home prophylaxis with levaquin, acyclovir and Cresemba. Holding ppx levaquin for now. Continue home acyclovir and cresemba. Follows with (Dr Valerio while Dr Killian away) 07/31- transfused 1 U of platelets yesterday, platelets at 10 today. No further transfusion at this time. Atrial fibrillation Rate control with amiodarone Not on anticoagulation due to thrombocytopenia Diabetes mellitus, type 2 A1C of 7.3 Holding metformin, ISS with accuchecks achs Continue gabapentin for neuropathy Hyperlipidemia Cont statin therapy Hypertension Continue Lasix (with K+) and losartan, amlodipine Continue to monitor BP Hairy leukoplakia of the tongue Tongue lesion Diagnosed by ENT during hospitalization in early July Continue Peridex Mood Continue Lexapro BPH Continue flomax and proscar DVT ppx: teds, scds Diet: HH/DM diet CODE: FULL Dispo: Home with Admission and Anticipated Discharge Date Admission Date: July 24, 2023 Subjective Had fever overnight. Had just eaten breakfast. Denied acute concerns at that time. Review of Systems Review of Systems: All systems reviewed & are unremarkable except as noted in Subjective Physical Exam Physical Exam: General: Alert, oriented. No acute distress Skin: bruises on arms Psych: Appropriate mood and affect Neuro:able to move as needed in bed HEENT: NC/AT Chest: Nontender to palpation. CV: RRR Resp: no increased effort of breathing. Abdomen: Soft, slightly tender Extremities: No edema in lower extremities bilaterally. Results & Data Results & Data Vital Signs (Past 12 Hours) Vital Signs Temp Pulse Pulse Resp BP BP Pulse Ox 07/31/23 07:40 71 07/31/23 07:15 36.5 C 67 18 109/71 94 07/31/23 03:00 37.5 C 77 16 141/88 H 94 07/31/23 00:31 59 L 07/30/23 23:00 37.0 C 59 L 16 103/57 L 92 O2 Del Method 07/31/23 07:40 07/31/23 07:15 Room Air 07/31/23 03:00 Room Air 07/31/23 00:31 07/30/23 23:00 Room Air (6) Atrial fibrillation Atrial fibrillation type: unspecified Qualified Code(s): I48.91 - Unspecified atrial fibrillation (7) Anemia Anemia type: unspecified type Qualified Code(s): D64.9 - Anemia, unspecified
[2023-07-31] MEDS ORDERED: VANCOMYCIN CONSULT ACTIVE PRN (10:33)
[2023-07-31] MEDS ORDERED: VANCOMYCIN HCL 2,250 MG in SODIUM CHLORIDE 0.9% 500 ML IV ONE (11:00)
--- NOTE | 2023-07-31 11:06 | Pharmacy Report ---
Pharmacy PK ABX Note - Date of Service July 31, 2023 - Assessment and Plan Assessment * 68 year old M originally receiving meropenem and vancomycin for treatment of febrile neutropenia from 07/24-07/26. Vancomycin was stopped on 07/26. Caspofungin x2 total doses administered on 07/28 and 07/29. Vancomycin resumed today, 07/31. Currently receiving meropenem and vancomycin in addition to long-standing prophylaxis of acyclovir and isavuconazonium po * ID consulted * PMH: relapsed AML w/ chemo on hold since Apr 2023, pancytopenia, recent hx ESBL Kleb pneumo bacteremia discharged ~3 weeks ago on levofloxacin, potentially life-long per ID * Pertinent microbiologic data includes: blood cultures negative x3 on 07/24 and no growth to date x2 on repeat 07/28 Vancomycin * SCr stable * Will re-load patient then resume prior regimen * Random level prior to the 5th dose Plan Vancomycin * Load: 2250 mg IV x1 * Maintenance: 1250 mg IV q12h * Random level ordered w AM labs 08/02 Pharmacy will continue to follow and will adjust dose/frequency as necessary. Thank you. Pharmacy has transitioned to AUC monitoring for vancomycin. AUC/DANIEL is the preferred PK/PD target and is associated with decreased risk of nephrotoxicity compared to traditional trough targets.
[2023-07-31] MEDS ORDERED: FILGRASTIM 480 MCG/1.6 ML VIAL SC ONE (17:26)
[2023-07-31] MEDS: FINASTERIDE 5 MG TAB PO SCH (21:16)
[2023-07-31] MEDS: TAMSULOSIN HCL 0.4 MG CAP PO SCH (21:17)
[2023-07-31] MEDS: VANCOMYCIN HCL 1,250 MG in SODIUM CHLORIDE 0.9% 250 ML IV SCH (21:23)
[2023-07-31] MEDS: CALCIUM CARBONATE 1250MG TAB PO SCH (22:07)
[2023-08-01] MEDS: ACETAMINOPHEN 325 MG TAB PO PRN ×5 (00:04→21:06)
[2023-08-01] MEDS: oxyCODONE HCL IR 5 MG TAB (IMMEDIATE RELEASE) PO PRN (00:05)
[2023-08-01] MEDS: MEROPENEM 500 MG in SYRINGE 0 ML IV SCH ×4 (01:39→18:30)
[2023-08-01] MEDS: PANTOprazole 40 MG TAB PO SCH (06:02)
[2023-08-01 07:36] LABS: Hematocrit (blood only) 24.1 % (42.0-52.0); Hemoglobin 8.2 g/dl (14.0-18.0); Mean Corpuscular Hemoglobin 29.5 pg (25.0-34.0); Mean Corpuscular Volume 86.7 fL (80.0-100.0); Platelet Count 5 K/uL (130-400); RDW Coefficient of Variation 13.4 % (11.5-14.5); Red Blood Count 2.78 M/uL (4.70-6.10); White Blood Count 0.17 K/ul (4.8-10.8)
[2023-08-01 07:44] LABS: BUN Creatinine Ratio 16.4 (10-20); Calcium 7.6 mg/dl (8.6-10.3); Creatinine Clr Calc Pharmacy 104.8 ml/min; Est GFR (African American) 109.7 ml/min; Est GFR (Non-African American) 94.6 ml/min; Magnesium 1.9 mg/dl (1.7-2.4); Phosphorus 3.5 mg/dl (2.5-4.9); Potassium 3.5 mmol/L (3.5-5.1)
[2023-08-01] MEDS ORDERED: STAT IV/IM STA (08:13)
[2023-08-01] MEDS ORDERED: VANCOMYCIN LEVEL ONE (08:30)
[2023-08-01] MEDS: CHOLECALCIFEROL 1,000 UNITS 25 MCG TAB PO SCH ×2 (08:55→10:06)
[2023-08-01] MEDS: CHLORHEXIDINE GLUCONATE 0.12% 480 ML MT SCH ×2 (08:56→21:14)
[2023-08-01] MEDS: ISAVUCONAZONIUM SULFATE 186 MG PO SCH ×3 (09:01→21:16)
[2023-08-01] MEDS: amLODIPine BESYLATE 5 MG TAB PO SCH ×3 (09:02→10:07)
[2023-08-01] MEDS: POTASSIUM CHLORIDE 10 MEQ TABCR PO SCH ×2 (09:02→10:05)
[2023-08-01] MEDS: AMIODARONE 200 MG TAB PO SCH ×2 (09:02→10:06)
[2023-08-01] MEDS: CALCIUM CARBONATE 1250MG TAB PO SCH ×3 (09:02→21:10)
[2023-08-01] MEDS: CEROVITE ADV FORMULA TAB PO SCH ×2 (09:02→10:07)
[2023-08-01] MEDS: FUROSEMIDE 40 MG TAB PO SCH ×2 (09:02→10:05)
[2023-08-01] MEDS: ACYCLOVIR 400 MG TAB PO SCH ×4 (09:02→21:07)
[2023-08-01] MEDS: GABAPENTIN 100 MG CAP PO SCH ×4 (09:02→21:11)
[2023-08-01] MEDS: ROSUVASTATIN CALCIUM 10 MG TAB PO SCH ×2 (09:03→10:05)
[2023-08-01] MEDS: LOSARTAN POTASSIUM 50 MG TAB PO SCH ×2 (09:03→10:05)
[2023-08-01] MEDS: NYSTATIN SUSP 500,000 U/5 ML UDC PO SCH ×2 (09:03→21:07)
[2023-08-01] MEDS: ESCITALOPRAM OXALATE 10 MG TAB PO SCH ×2 (09:03→10:06)
[2023-08-01] MEDS: VANCOMYCIN HCL 1,250 MG in SODIUM CHLORIDE 0.9% 250 ML IV SCH ×2 (09:04→21:06)
[2023-08-01] MEDS: INSULIN ASPART PER UNIT CHARGE SC SCH ×4 (09:07→21:23)
[2023-08-01] MEDS: POT PHOSPHATE MONOBASIC W/ SOD TAB PO SCH ×5 (09:08→21:10)
[2023-08-01] MEDS: CALCIUM GLUCONATE 10% 1,000 MG in SODIUM CHLOR 0.9% MINI-B 50 ML IV SCH ×2 (10:04→10:18)
[2023-08-01] MEDS: TAMSULOSIN HCL 0.4 MG CAP PO SCH (21:11)
[2023-08-01] MEDS: FINASTERIDE 5 MG TAB PO SCH (21:12)
--- NOTE | 2023-08-01 22:13 | Hospitalist Progress Note ---
Date of Service August 01, 2023 Assessment & Plan (1) Sepsis: (2) Pancytopenia: (3) Hairy leukoplakia of tongue: (4) AML (acute myeloid leukemia) in relapse: (5) Neutropenic fever: (6) Atrial fibrillation: (7) Anemia: (8) Diabetes mellitus, type 2: (9) Hyperlipidemia: (10) Hypertension: Plan Pt is a 68 yoM with PMHx of relapsed AML with chemo on hold since Apr 2023, pancytopenia requiring multiple transfusions of pRBCs and platelets over the past few months, HFrEF (Grade 1 diastolic dysfunction), persistent atrial fib no longer on anticoagulation, DMII, HTN, BPH admitted with febrile neutropenia. Febrile Neutropenia in the setting of Relapsed AML Patient presented to the ED with fever and chills. He was on Levaquin as per infectious disease as well as acyclovir and Cresemba for prophylaxis against infection. Chest x-rayno acute findings. UA not suggestive of infection Lyme screening negative Blood culture on July 24July 28NGTD Fungal culture -NGTD CMV, Rickettsial panel anaplasmosis pending histo galactomannan pending Biofire respiratory panel negative Continues to be leukopenic, anemic and thrombocytopenic Continue meropenem ID consulted- appreciate recs -recommended removing pt's port as source of infection -General Surgery contacted: recommended transfusing platelets with goal of 50K for port to be removed. Unfortunately, blood bank cannot supply enough platelets. 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 -Case discussed with [facility] transfer center, [facility] heme/onc and [facility] General surgery (pt preferred [facility] over [facility]) on 07/30- heme/onc advised that pt would need HLA matched platelets at this time, limited supply there as well. General surgery advised that with limited platelets there, pt would at risk of bleeding to during the procedure there as well. Transfer was not advised, heme/onc advised that infection was stabilized and to continue with IV antibiotics, treat the AML and consider port removal at a later point once pt's counts have improved on their own through AML treatment. -Case discussed with ID once more (Dr Bourne) on 07/30- advised to continue with IV Meropenem. 07/31- Case further discussed with ID Dr Bourne- recommending repeating blood cultures from the port, addition of IV Vancomycin. Advised consider discharge only when pt has been free from fever for 48hours. Continue IV antibiotics until port removed. 08/01- Requests to change timing of meropenem abx so pt can train to give it at home. Also agreeable to Palliative Care consult today for discussion of goals of care. Relapsed AML chemotherapy and on hold since April 2023 secondary to pancytopenia Last chemotherapy was in between April 08 to april 11, 2023 He was recently started on 480 mcg G-CSF twice a week due to persistent neutropenia. His last dose was on July 24, 2023. Plan is to give twice a week dose on Mondays and . S/p 9 units of platelets and 2 units of packed RBC during the hospitalization S/p Neupogen 480 mg on July 28, 2023 Home prophylaxis with levaquin, acyclovir and Cresemba. Holding ppx levaquin for now. Continue home acyclovir and cresemba. Follows with (Dr Valerio while Dr Killian away) 07/31- transfused 1 U of platelets yesterday, platelets at 10 today. No further transfusion at this time. 08/01- transfused 2U for platelets of 5, AM check of labs Atrial fibrillation Rate control with amiodarone Not on anticoagulation due to thrombocytopenia Diabetes mellitus, type 2 A1C of 7.3 Holding metformin, ISS with accuchecks achs Continue gabapentin for neuropathy Hyperlipidemia Cont statin therapy Hypertension Continue Lasix (with K+) and losartan, amlodipine Continue to monitor BP Hairy leukoplakia of the tongue Tongue lesion Diagnosed by ENT during hospitalization in early July Continue Peridex Mood Continue Lexapro BPH Continue flomax and proscar DVT ppx: teds, scds Diet: HH/DM diet CODE: FULL Dispo: Home with Admission and Anticipated Discharge Date Admission Date: July 24, 2023 Subjective Pt states that he had an episode of sweats after taking his pills. States he is not sure why he gets those. Agreeable today to Palliative Care consult to discuss next steps. Review of Systems Review of Systems: All systems reviewed & are unremarkable except as noted in Subjective Physical Exam Physical Exam: General: Alert, oriented. No acute distress Skin: bruises on arms Psych: Appropriate mood and affect Neuro:able to move as needed in bed HEENT: NC/AT Chest: Nontender to palpation. CV: RRR Resp: no increased effort of breathing. Abdomen: Soft, slightly tender Extremities: No edema in lower extremities bilaterally. Results & Data Results & Data Vital Signs (Past 12 Hours) Vital Signs Temp Pulse Pulse Resp BP BP Pulse Ox 08/01/23 14:17 36.4 C L 56 L 16 116/79 97 08/01/23 12:50 36.7 C 58 L 18 103/72 98 08/01/23 12:31 37.1 C 70 18 117/77 94 08/01/23 11:31 37.1 C 70 18 103/69 94 08/01/23 11:12 36.9 C 08/01/23 11:09 69 18 109/69 92 08/01/23 11:01 37.3 C 69 18 108/73 90 08/01/23 10:46 37.3 C 71 18 106/73 93 08/01/23 10:45 37.4 C 71 18 106/73 92 08/01/23 10:28 37.3 C 72 18 107/72 92 08/01/23 10:19 37.3 C 08/01/23 07:46 37.2 C 83 19 147/89 H 92 08/01/23 07:14 59 L 08/01/23 04:53 36.7 C 61 18 116/59 L 93 O2 Del Method 08/01/23 14:17 08/01/23 12:50 08/01/23 12:31 08/01/23 11:31 08/01/23 11:12 08/01/23 11:09 Room Air 08/01/23 11:01 08/01/23 10:46 08/01/23 10:45 08/01/23 10:28 08/01/23 10:19 08/01/23 07:46 Room Air 08/01/23 07:14 08/01/23 04:53 Room Air (6) Atrial fibrillation Atrial fibrillation type: unspecified Qualified Code(s): I48.91 - Unspecified atrial fibrillation (7) Anemia Anemia type: unspecified type Qualified Code(s): D64.9 - Anemia, unspecified
[2023-08-02] MEDS: MEROPENEM 500 MG in SYRINGE 0 ML IV SCH ×4 (00:25→17:19)
[2023-08-02] MEDS: oxyCODONE HCL IR 5 MG TAB (IMMEDIATE RELEASE) PO PRN ×2 (00:25→21:17)
[2023-08-02 05:55] LABS: BUN Creatinine Ratio 18.7 (10-20); Calcium 7.4 mg/dl (8.6-10.3); Est GFR (African American) 108.5 ml/min; Est GFR (Non-African American) 93.6 ml/min; Magnesium 1.7 mg/dl (1.7-2.4); Phosphorus 3.1 mg/dl (2.5-4.9); Potassium 3.3 mmol/L (3.5-5.1)
[2023-08-02 06:07] LABS: Hematocrit (blood only) 19.5 % (42.0-52.0); Hemoglobin 6.7 g/dl (14.0-18.0); Mean Corpuscular Hemoglobin 29.3 pg (25.0-34.0); Mean Corpuscular Hgb Conc 34.4 g/dL (32.0-36.0); Mean Corpuscular Volume 85.2 fL (80.0-100.0); Mean Platelet Volume 9.7 fL (9.4-12.4); Platelet Count 7 K/uL (130-400); RDW Coefficient of Variation 13.4 % (11.5-14.5); RDW Standard Deviation 41.4 fL (36.4-46.3); Red Blood Count 2.29 M/uL (4.70-6.10); White Blood Count 0.14 K/ul (4.8-10.8)
[2023-08-02] MEDS: PANTOprazole 40 MG TAB PO SCH (06:21)
[2023-08-02] MEDS ORDERED: SODIUM CHLORIDE 0.9% 250 ML IV PRN (06:48)
[2023-08-02] MEDS ORDERED: diphenhydrAMINE Capsule 25 MG CAP PO SCH (06:51)
[2023-08-02] MEDS ORDERED: ACETAMINOPHEN 325 MG TAB PO SCH (06:52)
[2023-08-02] MEDS: INSULIN ASPART PER UNIT CHARGE SC SCH ×4 (07:56→21:18)
[2023-08-02] MEDS: GABAPENTIN 100 MG CAP PO SCH ×3 (07:59→21:22)
[2023-08-02] MEDS: ACYCLOVIR 400 MG TAB PO SCH ×2 (07:59→21:21)
[2023-08-02] MEDS: FUROSEMIDE 40 MG TAB PO SCH (08:00)
[2023-08-02] MEDS: ROSUVASTATIN CALCIUM 10 MG TAB PO SCH (08:00)
[2023-08-02] MEDS: CEROVITE ADV FORMULA TAB PO SCH (08:00)
[2023-08-02] MEDS: ESCITALOPRAM OXALATE 10 MG TAB PO SCH (08:01)
[2023-08-02] MEDS: POT PHOSPHATE MONOBASIC W/ SOD TAB PO SCH ×3 (08:01→17:14)
[2023-08-02] MEDS: AMIODARONE 200 MG TAB PO SCH (08:01)
[2023-08-02] MEDS: NYSTATIN SUSP 500,000 U/5 ML UDC PO SCH ×2 (08:02→21:20)
[2023-08-02] MEDS: POTASSIUM CHLORIDE 10 MEQ TABCR PO SCH (08:02)
[2023-08-02] MEDS: ISAVUCONAZONIUM SULFATE 186 MG PO SCH (08:03)
[2023-08-02] MEDS: LOSARTAN POTASSIUM 50 MG TAB PO SCH (08:03)
[2023-08-02] MEDS: CALCIUM CARBONATE 1250MG TAB PO SCH ×2 (08:05→21:23)
[2023-08-02] MEDS: CHLORHEXIDINE GLUCONATE 0.12% 480 ML MT SCH ×2 (08:05→21:20)
[2023-08-02] MEDS: VANCOMYCIN HCL 1,250 MG in SODIUM CHLORIDE 0.9% 250 ML IV SCH ×2 (08:09→21:18)
[2023-08-02] MEDS ORDERED: VANCOMYCIN LEVEL ONE (08:30)
--- NOTE | 2023-08-02 10:18 | Pharmacy Report ---
Pharmacy PK ABX Note - Date of Service August 02, 2023 - Assessment and Plan Assessment 08/02: Blood cultures NGTD. Renal function stable. Continues on vancomycin, meropenem for febrile neutropenia. ID following; awaiting port removal. 07/31: * 68 year old M originally receiving meropenem and vancomycin for treatment of febrile neutropenia from 07/24-07/26. Vancomycin was stopped on 07/26. Caspofungin x2 total doses administered on 07/28 and 07/29. Vancomycin resumed today, 07/31. Currently receiving meropenem and vancomycin in addition to long-standing prophylaxis of acyclovir and isavuconazonium po * ID consulted * PMH: relapsed AML w/ chemo on hold since Apr 2023, pancytopenia, recent hx ESBL Kleb pneumo bacteremia discharged ~3 weeks ago on levofloxacin, potentially life-long per ID * Pertinent microbiologic data includes: blood cultures negative x3 on 07/24 and no growth to date x2 on repeat 07/28 Plan Vancomycin * Current regimen: 1250mg IV q12h * Random level this AM (~8.5hr level), 15.5mcg/mL. Predicted to achieve ssAUC 517mg/L.hr which is therapeutic. * Continue vancomycin 1250mg IV q12h. Repeat level in 48-72h. Pharmacy will continue to follow and will adjust dose/frequency as necessary. Thank you. Pharmacy has transitioned to AUC monitoring for vancomycin. AUC/DANIEL is the preferred PK/PD target and is associated with decreased risk of nephrotoxicity compared to traditional trough targets.
[2023-08-02] MEDS ORDERED: POTASSIUM CHLORIDE CRTAB 20 MEQ TABCR PO STA (10:47)
[2023-08-02] MEDS ORDERED: STAT IV/IM STA (10:49)
[2023-08-02] MEDS: CHOLECALCIFEROL 1,000 UNITS 25 MCG TAB PO SCH (11:24)
[2023-08-02] MEDS: CALCIUM GLUCONATE 10% 1,000 MG in SODIUM CHLOR 0.9% MINI-B 50 ML IV SCH ×2 (11:46→12:22)
[2023-08-02 20:15] LABS: Hemoglobin 7.8 g/dl (14.0-18.0); Mean Corpuscular Hemoglobin 28.5 pg (25.0-34.0); Mean Corpuscular Hgb Conc 33.9 g/dL (32.0-36.0); Mean Corpuscular Volume 83.9 fL (80.0-100.0); Mean Platelet Volume 9.6 fL (9.4-12.4); Platelet Count 11 K/uL (130-400); RDW Coefficient of Variation 14.3 % (11.5-14.5); Red Blood Count 2.74 M/uL (4.70-6.10); White Blood Count 0.29 K/ul (4.8-10.8)
[2023-08-02] MEDS: ACETAMINOPHEN 325 MG TAB PO PRN (21:17)
[2023-08-02] MEDS: FINASTERIDE 5 MG TAB PO SCH (21:22)
[2023-08-02] MEDS: TAMSULOSIN HCL 0.4 MG CAP PO SCH (21:24)
[2023-08-03] MEDS: MEROPENEM 500 MG in SYRINGE 0 ML IV SCH ×12 (00:10→23:31)
--- NOTE | 2023-08-03 05:19 | Hospitalist Progress Note ---
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 Febrile Neutropenia in the setting of Relapsed AML Patient presented to the ED with fever and chills. He was on Levaquin as per infectious disease as well as acyclovir and Cresemba for prophylaxis against infection. Chest x-rayno acute findings. UA not suggestive of infection Lyme screening negative Blood culture on July 24July 28NGTD Fungal culture -NGTD CMV, Rickettsial panel anaplasmosis pending histo galactomannan pending Biofire respiratory panel negative Continues to be leukopenic, anemic and thrombocytopenic Continue meropenem ID consulted- appreciate recs -recommended removing pt's port as source of infection -General Surgery contacted: recommended transfusing platelets with goal of 50K for port to be removed. Unfortunately, blood bank cannot supply enough platelets. 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 -Case discussed with [facility] [place] transfer center, [facility] [place] heme/onc and [facility] [place] General surgery (pt preferred [facility] [place] [facility]) on 07/30- heme/onc advised that pt would need HLA matched platelets at this time, limited supply there as well. General surgery advised that with limited platelets there, pt would be at risk of bleeding to during the procedure there as well. Transfer was not advised, heme/onc advised that infection was stabilized and to continue with IV antibiotics, treat the AML and consider port removal at a later point once pt's counts have improved on their own through AML treatment. -Case discussed with ID once more (Dr Bourne) on 07/30- advised to continue with IV Meropenem. 07/31- Case further discussed with ID Dr Bourne- recommending repeating blood cultures from the port, addition of IV Vancomycin. Advised consider discharge only when pt has been free from fever for 48hours. Continue IV antibiotics until port removed. 08/01- Requests to change timing of meropenem abx so pt can train to give it at home. Also agreeable to Palliative Care consult today for discussion of goals of care. 08/02-pt requiring transfusion of both platelets and pRBCs today. Blood bank concerned about supply and constant need for transfusions especially of platelets. 48 hours free of fevers. Per CM, pt is set up for home administration of abx. However given need for transfusions of both platelets and blood today, infusion company delivery and home health agency visit was cancelled with reevaluation scheduled for after the holidays on 08/05. Relapsed AML chemotherapy and on hold since April 2023 secondary to pancytopenia Last chemotherapy was in between April 08 to april 11, 2023 He was recently started on 480 mcg G-CSF twice a week due to persistent neutropenia. His last dose was on July 24, 2023. Plan is to give twice a week dose on Mondays and . S/p 9 units of platelets and 2 units of packed RBC during the hospitalization S/p Neupogen 480 mg on July 28, 2023 Home prophylaxis with levaquin, acyclovir and Cresemba. Holding ppx levaquin for now. Continue home acyclovir and cresemba. Follows with (Dr Valerio while Dr Killian away) 07/31- transfused 1 U of platelets yesterday, platelets at 10 today. No further transfusion at this time. 08/01- transfused 2U for platelets of 5, AM check of labs 08/02- transfused 1U prBCs for hgb of 6.7 and 1 U of platelets, recheck today shows hgb now 7.8 and platelets of 11 Atrial fibrillation Rate control with amiodarone Not on anticoagulation due to thrombocytopenia Diabetes mellitus, type 2 A1C of 7.3 Holding metformin, ISS with accuchecks achs Continue gabapentin for neuropathy Hyperlipidemia Cont statin therapy Hypertension Continue Lasix (with K+) and losartan, amlodipine Continue to monitor BP Hairy leukoplakia of the tongue Tongue lesion Diagnosed by ENT during hospitalization in early July Continue Peridex Mood Continue Lexapro BPH Continue flomax and proscar DVT ppx: teds, scds Diet: HH/DM diet CODE: FULL Dispo: Home with HH Admission and Anticipated Discharge Date Admission Date: July 24, 2023 Subjective Pt states that he had a bloody bowel movement. States that still having sweaty and cold episodes. Per records, currently free from fever in the last 48 hours. Required transfusion of both blood and platelets today. Review of Systems Review of Systems: All systems reviewed & are unremarkable except as noted in Subjective Physical Exam Physical Exam: General: Alert, oriented. No acute distress Skin: bruises on arms Psych: Appropriate mood and affect Neuro:able to move as needed in bed HEENT: NC/AT Chest: Nontender to palpation. CV: RRR Resp: no increased effort of breathing. Abdomen: Soft, slightly tender Extremities: No edema in lower extremities bilaterally. Results & Data Results & Data Vital Signs (Past 12 Hours) Vital Signs Temp Pulse Resp BP BP Pulse Ox O2 Del Method 08/02/23 08:39 36.9 C 69 18 108/63 91 Room Air 08/02/23 04:29 37.7 C H 78 19 132/76 90 Room Air 08/01/23 23:18 37.3 C 73 18 101/60 95 Room Air (6) Atrial fibrillation Atrial fibrillation type: unspecified Qualified Code(s): I48.91 - Unspecified atrial fibrillation (7) Anemia Anemia type: unspecified type Qualified Code(s): D64.9 - Anemia, unspecified
[2023-08-03] MEDS: PANTOprazole 40 MG TAB PO SCH (06:13)
[2023-08-03 07:49] LABS: Hematocrit (blood only) 21.8 % (42.0-52.0); Hemoglobin 7.6 g/dl (14.0-18.0); Mean Corpuscular Hgb Conc 34.9 g/dL (32.0-36.0); Mean Corpuscular Volume 83.2 fL (80.0-100.0); Platelet Count 8 K/uL (130-400); RDW Coefficient of Variation 14.3 % (11.5-14.5); RDW Standard Deviation 43.8 fL (36.4-46.3); Red Blood Count 2.62 M/uL (4.70-6.10); White Blood Count 0.12 K/ul (4.8-10.8)
[2023-08-03 07:58] LABS: Calcium 7.4 mg/dl (8.6-10.3); Potassium 3.6 mmol/L (3.5-5.1)
[2023-08-03 08:04] LABS: BUN Creatinine Ratio 19.4 (10-20); Creatinine Clr Calc Pharmacy 114.2 ml/min; Est GFR (African American) 113.6 ml/min
[2023-08-03] MEDS: ACYCLOVIR 400 MG TAB PO SCH ×2 (08:51→20:40)
[2023-08-03] MEDS: AMIODARONE 200 MG TAB PO SCH (08:51)
[2023-08-03] MEDS: CHLORHEXIDINE GLUCONATE 0.12% 480 ML MT SCH ×2 (08:52→20:42)
[2023-08-03] MEDS: CALCIUM CARBONATE 1250MG TAB PO SCH ×2 (08:52→20:41)
[2023-08-03] MEDS: amLODIPine BESYLATE 5 MG TAB PO SCH (08:52)
[2023-08-03] MEDS: ESCITALOPRAM OXALATE 10 MG TAB PO SCH (08:53)
[2023-08-03] MEDS: FUROSEMIDE 40 MG TAB PO SCH (08:53)
[2023-08-03] MEDS: CHOLECALCIFEROL 1,000 UNITS 25 MCG TAB PO SCH (08:53)
[2023-08-03] MEDS: ISAVUCONAZONIUM SULFATE 186 MG PO SCH (08:54)
[2023-08-03] MEDS: GABAPENTIN 100 MG CAP PO SCH ×3 (08:54→20:40)
[2023-08-03] MEDS: LOSARTAN POTASSIUM 50 MG TAB PO SCH (08:55)
[2023-08-03] MEDS: CEROVITE ADV FORMULA TAB PO SCH (08:56)
[2023-08-03] MEDS: POTASSIUM CHLORIDE 10 MEQ TABCR PO SCH (08:56)
[2023-08-03] MEDS: NYSTATIN SUSP 500,000 U/5 ML UDC PO SCH ×2 (08:56→20:40)
[2023-08-03] MEDS: ROSUVASTATIN CALCIUM 10 MG TAB PO SCH (08:57)
[2023-08-03] MEDS: INSULIN ASPART PER UNIT CHARGE SC SCH ×2 (08:57→12:41)
[2023-08-03] MEDS: VANCOMYCIN HCL 1,250 MG in SODIUM CHLORIDE 0.9% 250 ML IV SCH ×2 (09:09→20:40)
--- NOTE | 2023-08-03 12:47 | Hospitalist Progress Note ---
Date of Service August 03, 2023 Assessment & Plan (1) Sepsis: (2) Pancytopenia: (3) Hairy leukoplakia of tongue: (4) AML (acute myeloid leukemia) in relapse: (5) Neutropenic fever: (6) Atrial fibrillation: (7) Anemia: (8) Diabetes mellitus, type 2: (9) Hyperlipidemia: (10) Hypertension: Plan Pt is a 68 yoM with PMHx of relapsed AML with chemo on hold since Apr 2023, pancytopenia requiring multiple transfusions of pRBCs and platelets over the past few months, HFrEF (Grade 1 diastolic dysfunction), persistent atrial fib no longer on anticoagulation, DMII, HTN, BPH admitted with febrile neutropenia. Febrile Neutropenia in the setting of Relapsed AML Patient presented to the ED with fever and chills. He was on Levaquin as per infectious disease as well as acyclovir and Cresemba for prophylaxis against infection. Chest x-rayno acute findings. UA not suggestive of infection Lyme screening negative Blood culture on July 24July 28NGTD Fungal culture -NGTD Rickettsial panel including anaplasma and babesia is negative. Q fever, neg, Typhoid neg, aspergillus neg urine histoplasma galactomannan Ag neg Biofire respiratory panel negative Continues to be pancytopenic requiring daily transfusions of blood products. He is not interested in a SCT as treatment. We are contiuing with empiric vancomycin and meropenem-fever noted last night. ID consulted- -recommended removing pt's port as source of infection -General Surgery contacted: recommended transfusing platelets with goal of 50K for port to be removed. Unfortunately, blood bank cannot supply enough platelets. 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 -Case discussed with [facility] [place], [facility] [place] heme[place]onc and [facility] [place] General surgery (pt preferred [facility] [place] [facility]) on 07/30- heme/onc advised that pt would need HLA matched platelets at this time, limited supply there as well. General surgery advised that with limited platelets there, pt would be at risk of bleeding to during the procedure there as well. Transfer was not advised, heme/onc advised that infection was stabilized and to continue with IV antibiotics, treat the AML and consider port removal at a later point once pt's counts have improved on their own through AML treatment. -Case discussed with ID once more (Dr Bourne) on 07/30- advised to continue with IV Meropenem. 07/31- Case further discussed with ID Dr Bourne- recommending repeating blood cultures from the port, addition of IV Vancomycin. Advised consider discharge only when pt has been free from fever for 48hours. Continue IV antibiotics until port removed. 08/01- Requests to change timing of meropenem abx so pt can train to give it at home. Also agreeable to Palliative Care consult today for discussion of goals of care. 08/02-pt requiring transfusion of both platelets and pRBCs today. Blood bank concerned about supply and constant need for transfusions especially of platelets. 48 hours free of fevers. Per CM, pt is set up for home administration of abx. However given need for transfusions of both platelets and blood today, infusion company delivery and home health agency visit was cancelled with reevaluation scheduled for after the holidays on 08/05. Relapsed AML chemotherapy and on hold since April 2023 secondary to pancytopenia -pt reports that he is in remission. Last chemotherapy was in between April 08 to april 11, 2023 He was recently started on 480 mcg G-CSF twice a week due to persistent neutropenia. His last dose was on July 24, 2023. Plan is to give twice a week dose on Mondays and . S/p 9 units of platelets and 2 units of packed RBC during the hospitalization so far S/p Neupogen 480 mg on July 28, 2023 Home prophylaxis with levaquin, acyclovir and Cresemba. Holding ppx levaquin for now. Continue home acyclovir and cresemba. Follows with (Dr Valerio while Dr Killian away) 07/31- transfused 1 U of platelets yesterday, platelets at 10 today. No further transfusion at this time. 08/01- transfused 2U for platelets of 5, AM check of labs 08/02- transfused 1U prBCs for hgb of 6.7 and 1 U of platelets, recheck today shows hgb now 7.8 and platelets of 11 Atrial fibrillation chronic, stable. In sinus rhythm today. Rate control with amiodarone Not on anticoagulation due to thrombocytopenia Diabetes mellitus, type 2 A1C of 7.3 too many BSG fingersticks and insulin sticks causing significant ecchymosis on finger tips, arms and abdomen. Stop all fingersticks and insulin at this point and cont with home metformin at 50% dose. If any contrast is needed, metformin will need to be stopped for at least 48 hours and not restarted for another 48 hours. No plans for needing contrast at this point and want to mitigate the ecchymosis. Continue gabapentin for neuropathy Hyperlipidemia Cont statin therapy Hypertension chronic, stable. Continue Lasix (with K+) and losartan, amlodipine Continue to monitor BP Hairy leukoplakia of the tongue Tongue lesion Diagnosed by ENT during hospitalization in early July Continue Peridex mouth wash. Pt reports that he also bit his tongue and is using swish for pain which is manageable. Mood chronic, stable. Continue Lexapro BPH chronic, stable. Continue flomax and proscar DVT ppx: teds, scds Diet: HH/DM diet CODE: FULL Dispo: Home with HH I spent a total [id number] coordinating, documenting, and providing care for this patient excluding time spent in the performance of separately billed services Virginia Salinas DO [facility] and Anticipated Discharge Date Admission Date: July 24, 2023 Subjective 68-year-old man with AML admitted with pancytopenia, transfusion dependent. Also with picture consistent of sepsis with unknown infectious etiology. Consideration was given for this being the port, however, this is still in place given the possible perioperative complications related to his pancytopenia. He continues on the vancomycin and Merrem. He does report waking up with drenching sweats last night which is his manifestation of a fever. His temp was elevated to 37.9 Tmax last evening also. This morning his platelets were 8K and he is being transfused 1 bag of platelets. He denies any pain. He does report significant bruising and some bloody bowel movements that he feels is related to his hemorrhoids. The blood is described as bright red and has been ongoing. Physical Exam Physical Exam: CONSTITUTIONAL: WNWD, vitals as above, generally well-appearing, NAD EYES: normal conjunctivae, no scleral icterus, ENT: external ear and nose normal, oropharynx clear, MMM NECK: trachea midline RESPIRATORY: clear to auscultation bilaterally, no crackles, rales or wheezes, normal respiratory effort CARDIOVASCULAR: regular rate and rhythm, S1 and 2 heard without murmurs, gallops or rubs, no JVD, no peripheral edema CHEST: +port to right anterior chest wall GASTROINTESTINAL: soft, nontender, ND, no guarding MUSCULOSKELETAL: strength 5/5 throughout, head is normocephalic and atraumatic, SKIN: warm and dry, significant ecchymosis on both flexor surfaces of distal arms. Petechial rash on bilateral legs mostly in the upper thighs. NEUROLOGIC: CN 2-12 grossly intact, no sensory deficit, normal cognition, normal speech, no tremor PSYCHIATRIC: alert cooperative and oriented to person, place and time. Euthymic mood, makes good eye contact, language grossly intact, recent and remote memory grossly intact. Results & Data Results & Data Vital Signs (Past 12 Hours) Vital Signs Temp Pulse Pulse Resp BP BP BP 08/03/23 12:35 37.0 C 76 16 112/76 08/03/23 12:19 36.6 C 72 16 112/70 08/03/23 11:15 36.8 C 73 18 118/73 08/03/23 09:06 37.0 C 85 18 132/80 08/03/23 04:14 36.4 C L 62 20 126/66 Pulse Ox O2 Del Method 08/03/23 12:35 92 08/03/23 12:19 94 08/03/23 11:15 91 Room Air 08/03/23 09:06 92 Room Air 08/03/23 04:14 93 Room Air Laboratory Results Short CBC 08/02/23 08/03/23 Range/Units 19:52 06:38 WBC 0.29 L* 0.12 L* (4.8-10.8) K/ul Hgb 7.8 L 7.6 L (14.0-18.0) g/dl Hct 23.0 L 21.8 L (42.0-52.0) % Plt Count 11 L* D 8 L* (130-400) K/uL BMP 08/03/23 06:38 Sodium 136 Potassium 3.6 Chloride 98 Carbon Dioxide 32 BUN 13 Creatinine 0.67 Glucose 115 H Calcium 7.4 L Medications Administered Current Inpatient Medications Acetaminophen (Acetaminophen 325 Mg Tab) 650 mg PO Q4H PRN PRN Reason: Moderate Pain (Scale 4, 5, 6) Stop: 08/23/23 14:02 Last Admin: 08/02/23 21:17 Dose: 650 mg Acyclovir (Acyclovir 400 Mg Tab) 400 mg PO BID [facility] Stop: 08/23/23 20:59 Last Admin: 08/03/23 08:51 Dose: 400 mg Amiodarone HCl (Amiodarone 200 Mg Tab) 200 mg PO DAILY ANA MARÍA Stop: 08/24/23 08:59 Last Admin: 08/03/23 08:51 Dose: 200 mg Amlodipine Besylate (Amlodipine Besylate 5 Mg Tab) 2.5 mg PO DAILY ANA MARÍA Stop: 08/24/23 08:59 Last Admin: 08/03/23 08:52 Dose: 2.5 mg Calcium Carbonate (Calcium Carbonate 1250mg Tab) 1,250 mg PO BID ANA MARÍA Stop: 08/30/23 20:59 Last Admin: 08/03/23 08:52 Dose: 1,250 mg Chlorhexidine Gluconate (Chlorhexidine Gluconate 0.12% 480 Ml) 15 ml MT BID ANA MARÍA Stop: 08/23/23 20:59 Last Admin: 08/03/23 08:52 Dose: 15 ml Dextrose (Dextrose 50% 50 Ml Syringe) 25 - 50 ml IV UD PRN; Protocol PRN Reason: Hypoglycemia Protocol Stop: 08/23/23 13:26 Escitalopram Oxalate (Escitalopram Oxalate 10 Mg Tab) 10 mg PO DAILY ANA MARÍA Stop: 08/24/23 08:59 Last Admin: 08/03/23 08:53 Dose: 10 mg Finasteride (Finasteride 5 Mg Tab) 5 mg PO HS ANA MARÍA Stop: 08/23/23 20:59 Last Admin: 08/02/23 21:22 Dose: 5 mg Furosemide (Furosemide 40 Mg Tab) 40 mg PO DAILY ANA MARÍA Stop: 08/26/23 08:59 Last Admin: 08/03/23 08:53 Dose: 40 mg Gabapentin (Gabapentin 100 Mg Cap) 100 mg PO TID ANA MARÍA Stop: 08/23/23 13:59 Last Admin: 08/03/23 08:54 Dose: 100 mg Glucagon (Glucagon For Inj 1 Mg Vial) 1 mg SQ UD PRN; Protocol PRN Reason: Hypoglycemia Protocol Stop: 08/23/23 13:26 Glucose (Glucose 10 Tab/Tube) 4 - 8 tab PO UD PRN; Protocol PRN Reason: Hypoglycemia Treatment Stop: 08/23/23 13:26 Glucose (Glucose 40% Gel 15 Gm Tube) 15 - 30 gm PO UD PRN; Protocol PRN Reason: Hypoglycemia Protocol Stop: 08/23/23 13:26 Heparin Sodium (Porcine) (Heparin 100 Unit/Ml 5ml Flush) 5 ml FLUSH PRN PRN PRN Reason: Flush Stop: 08/24/23 03:18 Last Admin: 07/29/23 06:14 Dose: 5 ml Meropenem 500 mg/ Syringe 10 mls @ 2 mls/min IV Q6H [facility]; Protocol Stop: 08/07/23 15:59 Last Admin: 08/03/23 12:41 Dose: Not Given Vancomycin HCl 1,250 mg/ (Sodium Chloride) 275 mls @ 200 mls/hr IV Q12H [facility] Stop: 08/14/23 20:59 Last Infusion: 08/03/23 10:42 Dose: Infused Insulin Aspart (Insulin Aspart Per Unit Charge) 0 units SC ACHS [facility] Stop: 08/23/23 16:29 Last Admin: 08/03/23 12:41 Dose: 6 units Isavuconazonium Sulfate (Isavuconazonium Sulfate 186 Mg Cap) 372 mg PO DAILY [facility] Stop: 09/02/23 08:59 Last Admin: 08/03/23 08:54 Dose: 372 mg Losartan Potassium (Losartan Potassium 50 Mg Tab) 100 mg PO QAM [facility] Stop: 08/26/23 08:59 Last Admin: 08/03/23 08:55 Dose: 100 mg Miscellaneous (Carbohydrates For Hypoglycemia ) 15 - 30 gm PO UD PRN PRN Reason: Hypoglycemia Protocol Stop: 08/23/23 13:26 Miscellaneous Information (Vancomycin Consult Active) 1 each N/A UD PRN PRN Reason: Consult Stop: 08/30/23 10:32 Multivitamins/Minerals (Cerovite Adv Formula Tab) 1 tab PO QAM [facility] Stop: 08/24/23 08:59 Last Admin: 08/03/23 08:56 Dose: 1 tab Nystatin (Nystatin Susp 500,000 U/5 Ml Ud) 5 ml PO BID [facility] Stop: 08/23/23 20:59 Last Admin: 08/03/23 08:56 Dose: 5 ml Ondansetron HCl (Ondansetron Inj 2 Mg/Ml 2 Ml Vial) 4 mg IV Q4H PRN PRN Reason: Nausea And Vomiting Stop: 08/23/23 14:02 Last Admin: 08/02/23 08:10 Dose: 4 mg Oxycodone HCl (Oxycodone Hcl Ir 5 Mg Tab (Immediate Release)) 5 mg PO Q8H PRN PRN Reason: Pain Stop: 08/07/23 13:11 Last Admin: 08/02/23 21:17 Dose: 5 mg Pantoprazole Sodium (Pantoprazole 40 Mg Tab) 40 mg PO DAILYBB [facility] Stop: 08/24/23 06:29 Last Admin: 08/03/23 06:13 Dose: 40 mg Potassium Chloride (Potassium Chloride 10 Meq Tabcr) 10 meq PO DAILY [facility] Stop: 08/24/23 08:59 Last Admin: 08/03/23 08:56 Dose: 10 meq Rosuvastatin Calcium (Rosuvastatin Calcium 10 Mg Tab) [facility] [place] Stop: 08/24/23 08:59 Last Admin: 08/03/23 08:57 Dose: 10 mg Tamsulosin HCl (Tamsulosin Hcl 0.4 Mg Cap) 0.4 mg PO HS [facility] Stop: 08/23/23 20:59 Last Admin: 08/02/23 21:24 Dose: 0.4 mg Vitamin D (Cholecalciferol 1,000 Units 25 Mcg Tab) 1,000 units PO QAM [facility] Stop: 08/31/23 08:59 Last Admin: 08/03/23 08:53 Dose: 1,000 units (6) Atrial fibrillation Atrial fibrillation type: unspecified Qualified Code(s): I48.91 - Unspecified atrial fibrillation (7) Anemia Anemia type: unspecified type Qualified Code(s): D64.9 - Anemia, unspecified
[2023-08-03] MEDS: HEPARIN 100 UNIT/ML 5ML FLUSH FLUSH PRN (14:51)
[2023-08-03] MEDS: metFORMIN HCL 500 MG TAB PO SCH (18:09)
[2023-08-03] MEDS: oxyCODONE HCL IR 5 MG TAB (IMMEDIATE RELEASE) PO PRN (19:19)
[2023-08-03] MEDS: ACETAMINOPHEN 325 MG TAB PO PRN (19:19)
[2023-08-03] MEDS: FINASTERIDE 5 MG TAB PO SCH (20:41)
[2023-08-03] MEDS: TAMSULOSIN HCL 0.4 MG CAP PO SCH (20:41)
[2023-08-04] MEDS: MEROPENEM 500 MG in SYRINGE 0 ML IV SCH ×4 (05:40→23:32)
[2023-08-04] MEDS: PANTOprazole 40 MG TAB PO SCH (05:41)
[2023-08-04 05:54] LABS: Hematocrit (blood only) 21.7 % (42.0-52.0); Hemoglobin 7.5 g/dl (14.0-18.0); Mean Corpuscular Hemoglobin 29.3 pg (25.0-34.0); Mean Corpuscular Hgb Conc 34.6 g/dL (32.0-36.0); Mean Corpuscular Volume 84.8 fL (80.0-100.0); Mean Platelet Volume 11.1 fL (9.4-12.4); Platelet Count 11 K/uL (130-400); RDW Coefficient of Variation 13.8 % (11.5-14.5); RDW Standard Deviation 43.2 fL (36.4-46.3); Red Blood Count 2.56 M/uL (4.70-6.10); White Blood Count 0.13 K/ul (4.8-10.8)
[2023-08-04] MEDS ORDERED: VANCOMYCIN LEVEL ONE (08:00)
[2023-08-04] MEDS: metFORMIN HCL 500 MG TAB PO SCH ×2 (09:37→16:45)
[2023-08-04] MEDS: ROSUVASTATIN CALCIUM 10 MG TAB PO SCH (09:38)
[2023-08-04] MEDS: NYSTATIN SUSP 500,000 U/5 ML UDC PO SCH ×2 (09:38→20:06)
[2023-08-04] MEDS: POTASSIUM CHLORIDE 10 MEQ TABCR PO SCH (09:38)
[2023-08-04] MEDS: LOSARTAN POTASSIUM 50 MG TAB PO SCH (09:38)
[2023-08-04] MEDS: ACYCLOVIR 400 MG TAB PO SCH ×2 (09:38→20:08)
[2023-08-04] MEDS: GABAPENTIN 100 MG CAP PO SCH ×3 (09:38→20:07)
[2023-08-04] MEDS: FUROSEMIDE 40 MG TAB PO SCH (09:38)
[2023-08-04] MEDS: CHOLECALCIFEROL 1,000 UNITS 25 MCG TAB PO SCH (09:38)
[2023-08-04] MEDS: ESCITALOPRAM OXALATE 10 MG TAB PO SCH (09:38)
[2023-08-04] MEDS: CALCIUM CARBONATE 1250MG TAB PO SCH ×2 (09:38→20:09)
[2023-08-04] MEDS: amLODIPine BESYLATE 5 MG TAB PO SCH (09:38)
[2023-08-04] MEDS: AMIODARONE 200 MG TAB PO SCH (09:38)
[2023-08-04] MEDS: VANCOMYCIN HCL 1,250 MG in SODIUM CHLORIDE 0.9% 250 ML IV SCH ×2 (09:38→20:11)
[2023-08-04] MEDS: CEROVITE ADV FORMULA TAB PO SCH (09:39)
[2023-08-04] MEDS: CHLORHEXIDINE GLUCONATE 0.12% 480 ML MT SCH ×2 (09:39→20:05)
[2023-08-04] MEDS: ISAVUCONAZONIUM SULFATE 186 MG PO SCH (09:39)
--- NOTE | 2023-08-04 11:05 | Pharmacy Report ---
Pharmacy PK ABX Note - Date of Service August 04, 2023 - Assessment and Plan Assessment 08/03: Level today predicted to have therapeutic AUC. SCr has been stable. OK to monitor QOD for now. No change. 08/02: Blood cultures NGTD. Renal function stable. Continues on vancomycin, meropenem for febrile neutropenia. ID following; awaiting port removal. 07/31: * 68 year old M originally receiving meropenem and vancomycin for treatment of febrile neutropenia from 07/24-07/26. Vancomycin was stopped on 07/26. Caspofungin x2 total doses administered on 07/28 and 07/29. Vancomycin resumed today, 07/31. Currently receiving meropenem and vancomycin in addition to long-standing prophylaxis of acyclovir and isavuconazonium po * ID consulted * PMH: relapsed AML w/ chemo on hold since Apr 2023, pancytopenia, recent hx ESBL Kleb pneumo bacteremia discharged ~3 weeks ago on levofloxacin, potentially life-long per ID * Pertinent microbiologic data includes: blood cultures negative x3 on 07/24 and no growth to date x2 on repeat 07/28 Plan Vancomycin * Continue vancomycin 1250mg IV q12h. Repeat level in ~72h, assuming no pertinent clinical changes. Pharmacy will continue to follow and will adjust dose/frequency as necessary. Thank you. Pharmacy has transitioned to AUC monitoring for vancomycin. AUC/DANIEL is the preferred PK/PD target and is associated with decreased risk of nephrotoxicity compared to traditional trough targets.
--- NOTE | 2023-08-04 14:39 | Hospitalist Progress Note ---
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 Febrile Neutropenia in the setting of Relapsed AML Patient presented to the ED with fever and chills. He was on Levaquin as per infectious disease as well as acyclovir and Cresemba for prophylaxis against infection. Chest x-rayno acute findings. UA not suggestive of infection Lyme screening negative Blood culture on July 24July 28NGTD Fungal culture -NGTD Rickettsial panel including anaplasma and babesia is negative. Q fever, neg, Typhoid neg, aspergillus neg urine histoplasma galactomannan Ag neg [employer] respiratory panel negative Continues to be pancytopenic requiring daily transfusions of blood products. He is not interested in a SCT as treatment. We are contiuing with empiric vancomycin and meropenem-fever noted last night. ID consulted- -recommended removing pt's port as source of infection -General Surgery contacted: recommended transfusing platelets with goal of 50K for port to be removed. Unfortunately, blood bank cannot supply enough platelets. 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 -Case discussed with [facility] transfer center, [facility] heme/onc and [facility] General surgery (pt preferred [facility] over [facility]) on 07/30- heme/onc advised that pt would need HLA matched platelets at this time, limited supply there as well. General surgery advised that with limited platelets there, pt would be at risk of bleeding to during the procedure there as well. Transfer was not advised, heme/onc advised that infection was stabilized and to continue with IV antibiotics, treat the AML and consider port removal at a later point once pt's counts have improved on their own through AML treatment. -Case discussed with ID once more (Dr Bourne) on 07/30- advised to continue with IV Meropenem. 07/31- Case further discussed with ID Dr Bourne- recommending repeating blood cultures from the port, addition of IV Vancomycin. Advised consider discharge only when pt has been free from fever for 48hours. Continue IV antibiotics until port removed. 08/01- Requests to change timing of meropenem abx so pt can train to give it at home. Also agreeable to Palliative Care consult today for discussion of goals of care. 08/02-pt requiring transfusion of both platelets and pRBCs today. Blood bank concerned about supply and constant need for transfusions especially of platelets. 48 hours free of fevers. Per CM, pt is set up for home administration of abx. However given need for transfusions of both platelets and blood today, infusion company delivery and home health agency visit was cancelled with reevaluation scheduled for after the holidays on 08/05. Relapsed AML chemotherapy and on hold since April 2023 secondary to pancytopenia -pt reports that he is in remission. Last chemotherapy was in between April 08 to april 11, 2023 He was recently started on 480 mcg G-CSF twice a week due to persistent neutropenia. His last dose was on July 24, 2023. Plan is to give twice a week dose on Mondays and . S/p 9 units of platelets and 2 units of packed RBC during the hospitalization so far S/p Neupogen 480 mg on July 28, 2023 Home prophylaxis with levaquin, acyclovir and Cresemba. Holding ppx levaquin for now. Continue home acyclovir and cresemba. Follows with (Dr Valerio while Dr Killian away) Remains transfusion dependent every couple of days. Trend CBC with differential daily Atrial fibrillation chronic, stable. In sinus rhythm today. Rate control with amiodarone Not on anticoagulation due to thrombocytopenia Diabetes mellitus, type 2 A1C of 7.3 too many BSG fingersticks and insulin sticks causing significant ecchymosis on finger tips, arms and abdomen. Stop all fingersticks and insulin at this point and cont with home metformin at 50% dose. If any contrast is needed, metformin will need to be stopped for at least 48 hours and not restarted for another 48 hours. No plans for needing contrast at this point and want to mitigate the ecchymosis. Continue gabapentin for neuropathy Hyperlipidemia Cont statin therapy Hypertension chronic, stable. Continue Lasix (with K+) and losartan, amlodipine Continue to monitor BP Hairy leukoplakia of the tongue Tongue lesion Diagnosed by ENT during hospitalization in early July Continue Peridex mouth wash. Pt reports that he also bit his tongue and is using swish for pain which is manageable. Mood chronic, stable. Continue Lexapro BPH chronic, stable. Continue flomax and proscar DVT ppx: teds, scds Diet: HH/DM diet CODE: FULL Dispo: Home with HH I spent a total [id number] coordinating, documenting, and providing care for this patient excluding time spent in the performance of separately billed services Virginia Salinas DO [facility] Hospitalist Admission and Anticipated Discharge Date Admission Date: July 24, 2023 Subjective 68-year-old man with relapsed AML with chemotherapy on hold since April 2023 secondary to low absolute neutrophil count and low platelet count. Patient foll ows with Dr. Killian of [facility] hematology and also has heart failure diabetes and persistent atrial fibrillation no longer on anticoagulation due to pancytopenia. He presented to the hospital on 06/29 with neutropenic fever. He was found to have a bacteremia due to ESBL Klebsiella pneumonia. He also had a tongue lesion and is going to see ENT for this to assess the need for biopsy. Given he was on Levaquin prior to the ESBL Klebsiella growing in the blood ID was concerned of port infection. ENT did see him inpatient on 07/08 and exam was consistent with hairy tongue and small ulcerative lesion of the right dorsal/lateral tongue which been present for 2 months. It occurred in the setting of trauma and had not fully healed. It did not appear consistent with malignancy or infectious etiology. Given his severe thrombocytopenia ENT did not recommend biopsy at this time. Peridex mouth rinses twice daily was recommended with outpatient follow-up. Further discussion with ID occurred on 07/08 and oral levofloxacin 750 mg daily until blood counts recover was recommended. He was discharged on 07/08 and continued on Cresemba and acyclovir. Respiratory viral panel was negative chest x-ray was without acute abnormalities. CT chest revealed no pneumonia or infiltrate and urinalysis was negative. He returned on 07/24 with sepsis, neutropenic fever and persistent pancytopenia. No clear source of infection has been ascertained and he remains pancytopenic with an ANC today of 130. An echocardiogram this admission is unremarkable. He remains febrile despite broad-spectrum antibiotics with vancomycin and meropenem and Cresemba and acyclovir for over 10 days. I discussed the case with Dr. Valerio from [facility] hematology who suggested this appears infectious. I discussed the case with Dr. Larsen from [facility] who recommended a chest CT. Chest CT without contrast performed today revealed a nonspecific ground glass opacities in the right lung that are subtle. Given he has been neutropenic for approximately 2-3 months he may need another bone marrow biopsy. Transfusion reactions may also be to blame for his fevers. He has a suspected port infection however this port cannot be removed given his thrombocytopenia that is severe. He remains transfusion dependent. No additional infectious etiology can be confirmed this admission however. If we have nothing at this point we are unlikely to uncover an infection and transfer to [facility] is preferred. I discussed this with he and his who are both in agreement with the plan. I coordinated with the transfer centers this evening and the excepting hospitalist physician is Dr. Ray Massey. We are awaiting bed availability at this point. Evening nurse was updated and will update patient on the status. Planning for a preauthorization for transfer in the morning with case management prior to sending him. Today the patient denies any urinary symptoms, diarrhea, abdominal pain. He denies any cough and has ongoing fevers and chills with sweats. He does endorse a right-sided headache but has no neck stiffness or photophobia. Lumbar puncture considered but is contraindicated with this level of thrombocytopenia. Physical Exam Physical Exam: CONSTITUTIONAL: WNWD, vitals as above, generally well-appearing, NAD EYES: normal conjunctivae, no scleral icterus, ENT: external ear and nose normal, oropharynx clear, MMM NECK: trachea midline RESPIRATORY: clear to auscultation bilaterally, no crackles, rales or wheezes, normal respiratory effort CARDIOVASCULAR: regular rate and rhythm, S1 and 2 heard without murmurs, gallops or rubs, no JVD, no peripheral edema CHEST: +port to right anterior chest wall GASTROINTESTINAL: soft, nontender, ND, no guarding MUSCULOSKELETAL: strength 5/5 throughout, head is normocephalic and atraumatic, SKIN: warm and dry, significant ecchymosis on both flexor surfaces of distal arms. Petechial rash on bilateral legs mostly in the upper thighs. NEUROLOGIC: CN 2-12 grossly intact, no sensory deficit, normal cognition, normal speech, no tremor PSYCHIATRIC: alert cooperative and oriented to person, place and time. Euthymic mood, makes good eye contact, language grossly intact, recent and remote memory grossly intact. Results & Data Results & Data Vital Signs (Past 12 Hours) Vital Signs Temp Pulse Resp BP Pulse Ox O2 Del Method 08/04/23 12:33 37.9 C H 76 19 130/84 97 Room Air 08/04/23 09:17 37.4 C 76 19 114/75 93 Room Air 08/04/23 04:19 38.2 C H 86 18 140/85 94 Room Air Laboratory Results Short CBC 08/04/23 Range/Units 05:08 WBC 0.13 L* (4.8-10.8) K/ul Hgb 7.5 L (14.0-18.0) g/dl Hct 21.7 L (42.0-52.0) % Plt Count 11 L* (130-400) K/uL Medications Administered Current Inpatient Medications Acetaminophen (Acetaminophen 325 Mg Tab) 650 mg PO Q4H PRN PRN Reason: Moderate Pain (Scale 4, 5, 6) Stop: 08/23/23 14:02 Last Admin: 08/03/23 19:19 Dose: 650 mg Acyclovir (Acyclovir 400 Mg Tab) 400 mg PO BID ANA MARÍA Stop: 08/23/23 20:59 Last Admin: 08/04/23 09:38 Dose: 400 mg Amiodarone HCl (Amiodarone 200 Mg Tab) 200 mg PO DAILY ANA MARÍA Stop: 08/24/23 08:59 Last Admin: 08/04/23 09:38 Dose: 200 mg Amlodipine Besylate (Amlodipine Besylate 5 Mg Tab) 2.5 mg PO DAILY ANA MARÍA Stop: 08/24/23 08:59 Last Admin: 08/04/23 09:38 Dose: 2.5 mg Calcium Carbonate (Calcium Carbonate 1250mg Tab) 1,250 mg PO BID ANA MARÍA Stop: 08/30/23 20:59 Last Admin: 08/04/23 09:38 Dose: 1,250 mg Chlorhexidine Gluconate (Chlorhexidine Gluconate 0.12% 480 Ml) 15 ml MT BID ANA MARÍA Stop: 08/23/23 20:59 Last Admin: 08/04/23 09:39 Dose: 15 ml Dextrose (Dextrose 50% 50 Ml Syringe) 25 - 50 ml IV UD PRN; Protocol PRN Reason: Hypoglycemia Protocol Stop: 08/23/23 13:26 Escitalopram Oxalate (Escitalopram Oxalate 10 Mg Tab) 10 mg PO DAILY ANA MARÍA Stop: 08/24/23 08:59 Last Admin: 08/04/23 09:38 Dose: 10 mg Finasteride (Finasteride 5 Mg Tab) 5 mg PO HS ANA MARÍA Stop: 08/23/23 20:59 Last Admin: 08/03/23 20:41 Dose: 5 mg Furosemide (Furosemide 40 Mg Tab) 40 mg PO DAILY ANA MARÍA Stop: 08/26/23 08:59 Last Admin: 08/04/23 09:38 Dose: 40 mg Gabapentin (Gabapentin 100 Mg Cap) 100 mg PO TID ANA MARÍA Stop: 08/23/23 13:59 Last Admin: 08/04/23 09:38 Dose: 100 mg Glucagon (Glucagon For Inj 1 Mg Vial) 1 mg SQ UD PRN; Protocol PRN Reason: Hypoglycemia Protocol Stop: 08/23/23 13:26 Glucose (Glucose 10 Tab/Tube) 4 - 8 tab PO UD PRN; Protocol PRN Reason: Hypoglycemia Treatment Stop: 08/23/23 13:26 Glucose (Glucose 40% Gel 15 Gm Tube) 15 - 30 gm PO UD PRN; Protocol PRN Reason: Hypoglycemia Protocol Stop: 08/23/23 13:26 Heparin Sodium (Porcine) (Heparin 100 Unit/Ml 5ml Flush) 5 ml FLUSH PRN PRN PRN Reason: Flush Stop: 08/24/23 03:18 Last Admin: 08/03/23 14:51 Dose: 5 ml Meropenem 500 mg/ Syringe 10 mls @ 2 mls/min IV Q6H ANA MARÍA; Protocol Stop: 08/07/23 15:59 Last Admin: 08/04/23 11:24 Dose: 2 mls/min Vancomycin HCl 1,250 mg/ (Sodium Chloride) 275 mls @ 200 mls/hr IV Q12H [facility] Stop: 08/14/23 20:59 Last Infusion: 08/04/23 11:05 Dose: Infused Isavuconazonium Sulfate (Isavuconazonium Sulfate 186 Mg Cap) 372 mg PO DAILY ANA MARÍA Stop: 09/02/23 08:59 Last Admin: 08/04/23 09:39 Dose: 372 mg Losartan Potassium (Losartan Potassium 50 Mg Tab) 100 mg PO QAM [facility] Stop: 08/26/23 08:59 Last Admin: 08/04/23 09:38 Dose: 100 mg Metformin HCl (Metformin Hcl 500 Mg Tab) 500 mg PO BIDM [facility] Stop: 09/02/23 16:59 Last Admin: 08/04/23 09:37 Dose: 500 mg Miscellaneous (Carbohydrates For Hypoglycemia ) 15 - 30 gm PO UD PRN PRN Reason: Hypoglycemia Protocol Stop: 08/23/23 13:26 Miscellaneous Information (Vancomycin Consult Active) 1 each N/A UD PRN PRN Reason: Consult Stop: 08/30/23 10:32 Multivitamins/Minerals (Cerovite Adv Formula Tab) [facility] Stop: 08/24/23 08:59 Last Admin: 08/04/23 09:39 Dose: 1 tab Nystatin (Nystatin Susp 500,000 U/5 Ml Ud) 5 ml PO BID [facility] Stop: 08/23/23 20:59 Last Admin: 08/04/23 09:38 Dose: 5 ml Ondansetron HCl (Ondansetron Inj 2 Mg/Ml 2 Ml Vial) 4 mg IV Q4H PRN PRN Reason: Nausea And Vomiting Stop: 08/23/23 14:02 Last Admin: 08/02/23 08:10 Dose: 4 mg Oxycodone HCl (Oxycodone Hcl Ir 5 Mg Tab (Immediate Release)) 5 mg PO Q8H PRN PRN Reason: Pain Stop: 08/07/23 13:11 Last Admin: 08/03/23 19:19 Dose: 5 mg Pantoprazole Sodium (Pantoprazole 40 Mg Tab) 40 mg PO DAILYBB [facility] Stop: 08/24/23 06:29 Last Admin: 08/04/23 05:41 Dose: 40 mg Potassium Chloride (Potassium Chloride 10 Meq Tabcr) 10 meq PO DAILY [facility] Stop: 08/24/23 08:59 Last Admin: 08/04/23 09:38 Dose: 10 meq Rosuvastatin Calcium (Rosuvastatin Calcium 10 Mg Tab) 10 mg PO QAM [facility] Stop: 08/24/23 08:59 Last Admin: 08/04/23 09:38 Dose: 10 mg Tamsulosin HCl (Tamsulosin Hcl 0.4 Mg Cap) 0.4 mg PO HS [facility] Stop: 08/23/23 20:59 Last Admin: 08/03/23 20:41 Dose: 0.4 mg Vitamin D (Cholecalciferol 1,000 Units 25 Mcg Tab) 1,000 units PO QAM [facility] Stop: 08/31/23 08:59 Last Admin: 08/04/23 09:38 Dose: 1,000 units (6) Atrial fibrillation Atrial fibrillation type: unspecified Qualified Code(s): I48.91 - Unspecified atrial fibrillation (7) Anemia Anemia type: unspecified type Qualified Code(s): D64.9 - Anemia, unspecified
--- NOTE | 2023-08-04 16:40 | CT Scan Report ---
CT OF THE CHEST WITHOUT IV CONTRAST CLINICAL HISTORY: persistent febrile neutropenia COMPARISON STUDY: Chest CT June 29, 2023. Chest radiograph July 29, 2023. CT DOSE: 644.22 mGy.cm TECHNIQUE: Axial images of the chest were obtained without IV contrast. Images were reviewed in the axial, sagittal, and coronal planes. IV contrast was not administered for this examination. Automat ed exposure control was utilized for the study. A dose lowering technique was utilized adhering to t he principles of ALARA. FINDINGS: A right internal jugular [id number] is in place. No enlarged axillary, mediastinal or h ilar lymph nodes are present. There is no pericardial effusion. There is mild cardiomegaly and meza ry artery calcification. The central airways are patent. There is no pneumothorax or pleural effusion . No consolidation is identified. Subtle groundglass opacities within the posterior segment of the ri ght upper lobe and superior segment of the right lower lobe are present. There is no cavitation. Cent ral airways are patent. A low-attenuation left adrenal nodule favors an adenoma. Visualized portions of the upper abdomen are unremarkable. IMPRESSION: 1. No consolidation identified to strongly suggest bacterial pneumonia. 2. Subtle right lung groundglass opacities. These are nonspecific and could reflect a mild infectious process. 3. No thoracic lymphadenopathy. ACT 112: Negative or not required by law. Electronically signed by: Rupert Brenner M.D. 08/04/2023 4:38 PM
[2023-08-04] MEDS: oxyCODONE HCL IR 5 MG TAB (IMMEDIATE RELEASE) PO PRN (19:17)
[2023-08-04] MEDS: ACETAMINOPHEN 325 MG TAB PO PRN (19:18)
[2023-08-04] MEDS: HEPARIN 100 UNIT/ML 5ML FLUSH FLUSH PRN (20:03)
[2023-08-04] MEDS: TAMSULOSIN HCL 0.4 MG CAP PO SCH (20:08)
[2023-08-04] MEDS: FINASTERIDE 5 MG TAB PO SCH (20:09)
[2023-08-04 20:32] LABS: C Reactive Protein 16.66 mg/dl (0-0.5)
[2023-08-04 20:36] LABS: Reticulocyte % 0.2 % (0.5-2.0); Reticulocytes # 0.01 10^6/uL (0.02-0.10)
[2023-08-04 20:49] LABS: Appearance Urine Clear (Clear); Bacteria Urine Automated Negative (Negative); Bilirubin Urine Negative (Negative); Blood Urine Negative (Negative); Color Urine Dark Yellow; Glucose Urine UA Negative (Negative); Ketones Urine Trace (Negative); Leukocyte Esterase Urine Negative (Negative); Nitrite Urine Negative (Negative); Protein Urine 2+ (Negative); RBC Urine Automated 0-4 /hpf (0-4); Specific Gravity Urine 1.017 (1.000-1.030); Urobilinogen Urine Positive (Negative)
[2023-08-04 20:59] LABS: Fibrinogen 114 mg/dl (184-400); INR 1.2 (0.9-1.1); Partial Thromboplastin Ratio 1.6; Partial Thromboplastin Time 44 Seconds (21-31)
[2023-08-05] MEDS: PANTOprazole 40 MG TAB PO SCH (06:12)
[2023-08-05] MEDS: MEROPENEM 500 MG in SYRINGE 0 ML IV SCH ×4 (06:12→23:34)
[2023-08-05 08:08] LABS: Hematocrit (blood only) 19.7 % (42.0-52.0); Hemoglobin 6.9 g/dl (14.0-18.0); Mean Corpuscular Volume 82.8 fL (80.0-100.0); Platelet Count 3 K/uL (130-400); RDW Coefficient of Variation 13.7 % (11.5-14.5); RDW Standard Deviation 41.6 fL (36.4-46.3); Red Blood Count 2.38 M/uL (4.70-6.10); White Blood Count 0.11 K/ul (4.8-10.8)
[2023-08-05 08:21] LABS: Creatinine Clr Calc Pharmacy 109.3 ml/min; Est GFR (African American) 111.6 ml/min; Est GFR (Non-African American) 96.3 ml/min; Magnesium 1.7 mg/dl (1.7-2.4)
[2023-08-05] MEDS: AMIODARONE 200 MG TAB PO SCH (08:23)
[2023-08-05] MEDS: ACYCLOVIR 400 MG TAB PO SCH ×2 (08:23→23:27)
[2023-08-05] MEDS: ACETAMINOPHEN 325 MG TAB PO PRN ×3 (08:23→23:40)
[2023-08-05] MEDS: amLODIPine BESYLATE 5 MG TAB PO SCH (08:24)
[2023-08-05] MEDS: GABAPENTIN 100 MG CAP PO SCH ×3 (08:24→23:26)
[2023-08-05] MEDS: ROSUVASTATIN CALCIUM 10 MG TAB PO SCH (08:24)
[2023-08-05] MEDS: CHOLECALCIFEROL 1,000 UNITS 25 MCG TAB PO SCH (08:24)
[2023-08-05] MEDS: CEROVITE ADV FORMULA TAB PO SCH (08:24)
[2023-08-05] MEDS: NYSTATIN SUSP 500,000 U/5 ML UDC PO SCH ×2 (08:25→23:28)
[2023-08-05] MEDS: POTASSIUM CHLORIDE 10 MEQ TABCR PO SCH (08:25)
[2023-08-05] MEDS: ESCITALOPRAM OXALATE 10 MG TAB PO SCH (08:25)
[2023-08-05] MEDS: CALCIUM CARBONATE 1250MG TAB PO SCH ×2 (08:25→23:29)
[2023-08-05] MEDS: LOSARTAN POTASSIUM 50 MG TAB PO SCH (08:25)
[2023-08-05] MEDS: FUROSEMIDE 40 MG TAB PO SCH (08:25)
[2023-08-05] MEDS: ISAVUCONAZONIUM SULFATE 186 MG PO SCH (08:26)
[2023-08-05] MEDS: CHLORHEXIDINE GLUCONATE 0.12% 480 ML MT SCH ×2 (08:27→23:26)
[2023-08-05] MEDS: metFORMIN HCL 500 MG TAB PO SCH ×2 (08:27→16:25)
[2023-08-05] MEDS: oxyCODONE HCL IR 5 MG TAB (IMMEDIATE RELEASE) PO PRN ×3 (08:35→23:41)
[2023-08-05] MEDS: VANCOMYCIN HCL 1,250 MG in SODIUM CHLORIDE 0.9% 250 ML IV SCH ×2 (08:36→23:31)
--- NOTE | 2023-08-05 10:20 | Palliative Care Consultation ---
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 * I will alert the [facility] Palliative Medicine Team so they can follow him when he arrives * It is noted pt is not seeking [employer] or hospice, he would like to continue any and all therapies except for transplant which he believes would be a cause of mortality for him. He and his desire continued high level aggressive care aimed at life prolongation. he is an ideal candidate for ongoing OP Pall med follow up for Supportive Oncology integration, this can be done for him at [facility] or [facility] depending on where he ends up going for cancer care. * TS 30 min in complex chart review and d/w teams. Pt Not seen and NO charge submitted. Thank you for allowing us to participate in the ongoing care of this patient. Please don't hesitate to call or page with any additional concerns. Dr. Laurence Nicholson DNP Director, Palliative Care History of Present Illness Reason for Consultation: On 08/01/23 @ 16:31 Alanis Huff Wrote To Laurence Nicholson goals of care Attending Physician: Virginia Salinas, DO History of Present Illness Abdias is a 68 yo male with relapsed AML who came to ED with fever and chills; it is noted chemo on hold since Apr 2023, pancytopenia requiring multiple transfusions of PRBCs + platelets; PMH includes HFrEF (Grade 1 diastolic dysfunction), persistent atrial fib no longer on anticoagulation, DMII, HTN, BPH admitted with febrile neutropenia. * originally receiving meropenem and vancomycin for treatment of febrile neutropenia from 07/24-07/26. Vancomycin was stopped on 07/26. Caspofungin x2 total doses administered on 07/28 and 07/29. Vancomycin resumed today, 07/31. Currently receiving meropenem and vancomycin in addition to long- standing prophylaxis of acyclovir and isavuconazonium po * ID consulted * PMH: relapsed AML w/ chemo on hold since Apr 2023, pancytopenia, recent hx ESBL Kleb pneumo bacteremia discharged ~3 weeks ago on levofloxacin, potentially life-long per ID * Pertinent microbiologic data includes: blood cultures negative x3 on 07/24 and no growth to date x2 on repeat 07/28 He was on Levaquin as per infectious disease as well as acyclovir and Cresemba for prophylaxis against infection. CXR WAL/no acute findings. UA: no infection Lyme screening negative Blood culture on July 24, July 28NGTD Fungal culture -NGTD Rickettsial panel including anaplasma and Babesia is negative. Q fever, neg, Typhoid neg, aspergillus neg urine histoplasma galactomannan Ag neg Biofire respiratory panel negative Continues to be pancytopenic requiring daily transfusions of blood products. He is not interested in a transplant for fear of dying from complications of it Allergies Allergy/AdvReac Type Severity Reaction Status Date / Time bee venom protein (honey bee) Allergy Mild SWELLING Verified 07/22/23 09:54 hydrocodone AdvReac Unknown NAUSEA Verified 07/22/23 09:54 nitrofurantoin AdvReac Headache Verified 07/22/23 09:54 Home Medications Medication Instructions Recorded Confirmed Type finasteride 5 mg tablet 5 mg PO HS 09/18/18 07/24/23 History omeprazole 20 mg capsule,delayed 20 mg PO QAM 05/08/21 07/24/23 History release rosuvastatin 10 mg tablet 10 mg PO QAM 05/08/21 07/24/23 History losartan 100 mg tablet 100 mg PO QAM 05/10/21 07/24/23 History tamsulosin 0.4 mg capsule (Flomax) 4 mg PO HS 05/10/21 07/24/23 History acyclovir 400 mg tablet 400 mg PO BID 01/27/22 07/24/23 History multivitamin with minerals 1 tab PO QAM 01/27/22 07/24/23 History ondansetron 4 mg disintegrating 4 mg translingual Q6 PRN Nausea 02/05/22 07/24/23 History tablet furosemide 40 mg tablet 40 mg PO DAILY #30 tabs 02/08/22 07/24/23 Rx potassium chloride 10 mEq 10 meq PO DAILY #30 tabs 02/08/22 07/24/23 Rx tablet,extended release(part/cryst) eplerenone 25 mg tablet 25 mg PO DAILY 11/29/22 07/24/23 History tadalafil 5 mg tablet 5 mg PO DAILY PRN Muscle Pain 11/29/22 07/24/23 History escitalopram oxalate 10 mg tablet 10 mg PO DAILY 12/09/22 07/24/23 History isavuconazonium sulfate 186 mg 372 mg PO BID 12/09/22 07/24/23 History capsule (Cresemba) sildenafil 0 mg PO DIRECTED PRN Sexual 12/09/22 07/24/23 History Activity amiodarone 200 mg tablet 200 mg PO DAILY 12/31/22 07/24/23 History amlodipine 2.5 mg tablet 2.5 mg PO DAILY 12/31/22 07/24/23 History metformin 500 mg tablet,extended 1,000 mg PO BID 12/31/22 07/24/23 History release 24 hr nystatin 100,000 unit/mL oral 5 ml PO BID 06/25/23 07/24/23 History suspension oxycodone 5 mg tablet 5 mg PO Q8H PRN Pain 06/25/23 07/24/23 History chlorhexidine gluconate 0.12 % 15 ml buccal BID #15 mL 07/08/23 07/24/23 Rx mouthwash (Peridex) levofloxacin 750 mg tablet 750 mg PO DAILY #30 tabs 07/08/23 07/24/23 Rx gabapentin 100 mg capsule 100 mg PO TID 07/24/23 07/24/23 History Patient History Medical History AML (acute myeloblastic leukemia) Enlargement of aortic root Follows with Dr. Sibley Per December 2019 ECHO - Aortic root and proximal ascending aorta are mildly enlarged (4.3/4.1 cm respectively) Diabetes mellitus, type 2 DENIES NEUROPATHY History of melanoma PAST HISTORY GERD (gastroesophageal reflux disease) Hypertension Hyperlipidemia Atrial fibrillation Paroxysmal - very rare Per 09/21/20 cardio note- had a fib episode February 2020 after shingles vaccine and Jun 2020 - both episodes lasted several hours- resolved after taking Flecainide as prescribed (takes PRN per cardio instructions) [id number] score =3 for risk factors of age of 64, HTN, and DM2 per cardio records- patient not on AC secondary to bleeding complications in the past (Next cardio visit Sep 2021) Surgical History History of removal of cyst off finger History of colonoscopy History of cataract surgery bilt History of biopsy of bladder History of melanoma excision Family History Other Hypertension No family history of adverse response to anesthesia Social History Smoking Status: Former smoker Tobacco Type: Cigarettes Cigarettes Per Day: QUIT IN 1987; Second Hand Exposure: No; Do You Dip or Chew Tobacco: No; Tobacco Cessation Education Requested by Patient: No Hx Alcohol Use: No Hx Substance Use: No Preferred Language: German Communication Ability: Effective Buffer Operator Required: No Beliefs That Will Affect Care: None marital status: Current Living Situation: Spouse How many Children do You have: 1 Other Information That Helps Us Care for You: No Feels Safe at Home: Yes Safety Concerns: Feels Safe At This Time Assistive Devices: None Results & Data Vital Signs (Past 12 Hours) Vital Signs Temp Pulse Pulse Resp BP BP Pulse Ox 08/05/23 07:46 66 08/05/23 07:27 38.2 C H 84 19 119/75 94 08/05/23 03:34 37 C 72 18 123/65 95 08/04/23 23:33 36.7 C 66 18 120/62 94 O2 Del Method O2 Flow Rate 08/05/23 07:46 08/05/23 07:27 Room Air 08/05/23 03:34 Nasal Cannula 2 08/04/23 23:33 Room Air Laboratory Results data reviewed, see HPI Diagnostic Findings data reviewed, see HPI PG Care Time/CCT Total # of Minutes Spent Total Time Spent with Patient: Total time spent is greater than 50% in coordination of care (as documented) at patient's floor/unit and/or counseling patient: Coding Level of Care Code None Diagnoses Dyspnea and respiratory abnormalities R06.00; R06.89 Weakness generalized R53.1 Advanced care planning/counseling discussion Z71.89 Palliative care by specialist Z51.5 AML (acute myeloid leukemia) in relapse C92.02 Bacteremia due to Klebsiella pneumoniae R78.81; B96.1 Neutropenic fever D70.9; R50.81 Atrial fibrillation I48.91 Atrial fibrillation type: unspecified
--- NOTE | 2023-08-05 11:57 | Oncology Consultation ---
Date of Consultation August 05, 2023 Assessment & Plan (1) Neutropenic fever: (2) Pancytopenia: (3) AML (acute myelogenous leukemia): Plan 68-year-old gentleman with history of AML presenting with neutropenic fever and severe pancytopenia -Severe pancytopenia concerning for AML. Most recently on azacitidine/venetoclax up until April, with treatment discontinued due to cytopenias. Has not had bone marrow biopsy recently. Will need updated bone marrow biopsy to evaluate for relapse. Agree with transfer to tertiary center given concern for relapsed AML. 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 Although fibrinogen is above 100, he has ongoing bleeding with hematochezia and significant bruising involving abdomen and bilateral upper extremity so would recommend cryoprecipitates. Also recommend transfusing with irradiated platelets with goal of platelet count above 10,000. Also transfused with PRBC with goal of maintaining hemoglobin above 7. -Continue broad-spectrum antibiotics, antifungal and antiviral Thank you for this consult. Hematology will follow peripherally while patient is in the hospital. Please feel free to call if you have any further questions History of Present Illness Reason for Consultation: AML Attending Physician: Virginia Salinas, History of Present Illness Pleasant gentleman with history of AML for which she is s/p induction chemotherapy with 7+3 and found to have residual disease for which she was reinduced with HiDAC and gemtuzumab followed by consolidation HiDAC plus G-CSF s/p 3 cycles completed in June,. Most recently was on subcutaneous azacitidine 75 mg/m SC q. 7 days as well as oral venetoclax started in Dec, 2022 and received 4 cycles of treatment. Has been off treatment since April, due to cytopenias. He is primarily followed by Dr. Killian of [facility] for leukemia. Patient was admitted to [facility] with neutropenic fever, sepsis and persistent pancytopenia requiring transfusions. Was placed on broad- spectrum antibiotics with vancomycin, meropenem. Despite this, he continues to have persistent fevers. Blood cultures, urinalysis and chest imaging have all been negative for infection. He continues to be pancytopenic with today's labs showing WBC of 0.11, hemoglobin 6.9, hematocrit 19.7 and platelet count of 3000. Coagulation studies revealed PT of 13, PTT of 44 and fibrinogen of 114. Peripheral smear review did not show any evidence of blasts. He complains of bruising involving abdomen, bilateral upper extremities. Also complains of hematochezia which he attributes to hemorrhoids. Allergies Allergy/AdvReac Type Severity Reaction Status Date / Time bee venom protein (honey bee) Allergy Mild SWELLING Verified 07/22/23 09:54 hydrocodone AdvReac Unknown NAUSEA Verified 07/22/23 09:54 nitrofurantoin AdvReac Headache Verified 07/22/23 09:54 Home Medications Medication Instructions Recorded Confirmed Type finasteride 5 mg tablet 5 mg PO HS 09/18/18 07/24/23 History omeprazole 20 mg capsule,delayed 20 mg PO QAM 05/08/21 07/24/23 History release rosuvastatin 10 mg tablet 10 mg PO QAM 05/08/21 07/24/23 History losartan 100 mg tablet 100 mg PO QAM 05/10/21 07/24/23 History tamsulosin 0.4 mg capsule (Flomax) 4 mg PO HS 05/10/21 07/24/23 History acyclovir 400 mg tablet 400 mg PO BID 01/27/22 07/24/23 History multivitamin with minerals 1 tab PO QAM 01/27/22 07/24/23 History ondansetron 4 mg disintegrating 4 mg translingual Q6 PRN Nausea 02/05/22 07/24/23 History tablet furosemide 40 mg tablet 40 mg PO DAILY #30 tabs 02/08/22 07/24/23 Rx potassium chloride 10 mEq 10 meq PO DAILY #30 tabs 02/08/22 07/24/23 Rx tablet,extended release(part/cryst) eplerenone 25 mg tablet 25 mg PO DAILY 11/29/22 07/24/23 History tadalafil 5 mg tablet 5 mg PO DAILY PRN Muscle Pain 11/29/22 07/24/23 History escitalopram oxalate 10 mg tablet 10 mg PO DAILY 12/09/22 07/24/23 History isavuconazonium sulfate 186 mg 372 mg PO BID 12/09/22 07/24/23 History capsule (Cresemba) sildenafil 0 mg PO DIRECTED PRN Sexual 12/09/22 07/24/23 History Activity amiodarone 200 mg tablet 200 mg PO DAILY 12/31/22 07/24/23 History amlodipine 2.5 mg tablet 2.5 mg PO DAILY 12/31/22 07/24/23 History metformin 500 mg tablet,extended 1,000 mg PO BID 12/31/22 07/24/23 History release 24 hr nystatin 100,000 unit/mL oral 5 ml PO BID 06/25/23 07/24/23 History suspension oxycodone 5 mg tablet 5 mg PO Q8H PRN Pain 06/25/23 07/24/23 History chlorhexidine gluconate 0.12 % 15 ml buccal BID #15 mL 07/08/23 07/24/23 Rx mouthwash (Peridex) levofloxacin 750 mg tablet 750 mg PO DAILY #30 tabs 07/08/23 07/24/23 Rx gabapentin 100 mg capsule 100 mg PO TID 07/24/23 07/24/23 History Patient History Medical History AML (acute myeloblastic leukemia) Enlargement of aortic root Follows with Dr. Sibley Per December 2019 ECHO - Aortic root and proximal ascending aorta are mildly enlarged (4.3/4.1 cm respectively) Diabetes mellitus, type 2 DENIES NEUROPATHY History of melanoma PAST HISTORY GERD (gastroesophageal reflux disease) Hypertension Hyperlipidemia Atrial fibrillation Paroxysmal - very rare Per 09/21/20 cardio note- had a fib episode February 2020 after shingles vaccine and Jun 2020 - both episodes lasted several hours- resolved after taking Flecainide as prescribed (takes PRN per cardio instructions) [id number] score =3 for risk factors of age of 64, HTN, and DM2 per cardio records- patient not on AC secondary to bleeding complications in the past (Next cardio visit Sep 2021) Surgical History History of removal of cyst off finger History of colonoscopy History of cataract surgery bilt History of biopsy of bladder History of melanoma excision Family History Other Hypertension No family history of adverse response to anesthesia Social History Smoking Status: Former smoker Tobacco Type: Cigarettes Cigarettes Per Day: QUIT IN 1987; Second Hand Exposure: No; Do You Dip or Chew Tobacco: No; Tobacco Cessation Education Requested by Patient: No Hx Alcohol Use: No Hx Substance Use: No Preferred Language: Yoruba Communication Ability: Effective Administrative Support Assistant Required: No Beliefs That Will Affect Care: None marital status: Current Living Situation: Spouse How many Children do You have: 1 Other Information That Helps Us Care for You: No Feels Safe at Home: Yes Safety Concerns: Feels Safe At This Time Assistive Devices: None Results & Data Vital Signs (Past 12 Hours) Vital Signs Temp Pulse Pulse Resp BP BP BP 08/05/23 11:20 36.2 C L 68 18 114/78 08/05/23 11:11 08/05/23 11:01 36.0 C L 64 19 90/69 L 08/05/23 07:46 66 08/05/23 07:27 38.2 C H 84 19 119/75 08/05/23 03:34 37 C 72 18 123/65 Pulse Ox O2 Del Method O2 Flow Rate 08/05/23 11:20 96 08/05/23 11:11 Room Air 08/05/23 11:01 94 Room Air 08/05/23 07:46 08/05/23 07:27 94 Room Air 08/05/23 03:34 95 Nasal Cannula 2
--- NOTE | 2023-08-05 12:05 | Hospitalist Progress Note ---
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 Febrile Neutropenia in the setting of Relapsed AML Patient presented to the ED with fever and chills. He was on Levaquin as per infectious disease as well as acyclovir and Cresemba for prophylaxis against infection. Chest x-rayno acute findings. UA not suggestive of infection Lyme screening negative Blood culture on July 24July [id number] Fungal culture -NGTD Rickettsial panel including anaplasma and babesia is negative. Q fever, neg, Typhoid neg, aspergillus neg urine histoplasma galactomannan Ag neg [employer] respiratory panel negative Continues to be pancytopenic and transfusion dependent He is not interested in a SCT as treatment bc he doesn't think he would survive it. We are continuing with empiric vancomycin and meropenem-fevers continue this mornig. ID consulted- -recommended removing pt's port as source of infection -General Surgery contacted: recommended transfusing platelets with goal of 50K for port to be removed. Unfortunately, blood bank cannot supply enough platelets. 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 -Case discussed with [facility] transfer center, [facility] heme/onc and [facility] General surgery (pt preferred [facility] over [facility]) on 07/30- heme/onc advised that pt would need HLA matched platelets at this time, limited supply there as well. General surgery advised that with limited platelets there, pt would be at risk of bleeding to during the procedure there as well. Transfer was not advised, heme/onc advised that infection was stabilized and to continue with IV antibiotics, treat the AML and consider port removal at a later point once pt's counts have improved on their own through AML treatment. -Case discussed with ID once more (Dr Bourne) on 07/30- advised to continue with IV Meropenem. 07/31- Case further discussed with ID Dr Bourne- recommending repeating blood cultures from the port, addition of IV Vancomycin. Advised consider discharge only when pt has been free from fever for 48hours. Continue IV antibiotics until port removed. 08/01- Requests to change timing of meropenem abx so pt can train to give it at home. Also agreeable to Palliative Care consult today for discussion of goals of care. 08/02-pt requiring transfusion of both platelets and pRBCs today. Blood bank concerned about supply and constant need for transfusions especially of platelets. 48 hours free of fevers. Per CM, pt is set up for home administration of abx. However given need for transfusions of both platelets and blood today, infusion company delivery and home health agency visit was cancelled with reevaluation scheduled for after the holidays on 08/05. 08/05-accepted transfer to [facility], awaiting ins auth and bed. Cont current therapy. Transfuse 1 u PRBC and 1 pack platelets. No cryo per hematology at this time. Less concern for hemolysis or DIC. Low fibrinogen likley related to malignancy. Relapsed AML chemotherapy and on hold since April 2023 secondary to pancytopenia -pt reports that he is in remission. Last chemotherapy was in between April 08 to april 11, 2023 He was recently started on 480 mcg G-CSF twice a week due to persistent neutropenia. Plan is to give twice a week dose on Mondays and , but orders were not continued for this. Will readdress with Hematology who is seeing him today. S/p 15 units of platelets and 5 units of packed RBC during the hospitalization so far S/p Neupogen 480 mg on July 28, 2023 Remains transfusion dependent every couple of days. Trend CBC with differential daily Atrial fibrillation chronic, stable. In sinus rhythm today. Rate control with amiodarone Not on anticoagulation due to thrombocytopenia Diabetes mellitus, type 2 A1C of 7.3 too many BSG fingersticks and insulin sticks causing significant ecchymosis on finger tips, arms and abdomen. Stop all fingersticks and insulin at this point and cont with home metformin at 50% dose. If any contrast is needed, metformin will need to be stopped for at least 48 hours and not restarted for another 48 hours. No plans for needing contrast at this point and want to mitigate the ecchymosis. Continue gabapentin for neuropathy Hyperlipidemia Cont statin therapy Hypertension chronic, stable. Continue Lasix (with K+) and losartan, amlodipine Continue to monitor BP Hairy leukoplakia of the tongue Tongue lesion Diagnosed by ENT during hospitalization in early July Continue Peridex mouth wash. Pt reports that he also bit his tongue and is using swish for pain which is manageable. Mood chronic, stable. Continue Lexapro BPH chronic, stable. Continue flomax and proscar DVT ppx: teds, scds Diet: HH/DM diet CODE: FULL Dispo: Home with HH I spent a total [id number] coordinating, documenting, and providing care for this patient excluding time spent in the performance of separately billed services Virginia Salinas DO [facility] Hospitalist Admission and Anticipated Discharge Date Admission Date: July 24, 2023 Subjective 68-year-old man with relapsed AML with chemotherapy on hold since April 2023 secondary to low absolute neutrophil count and low platelet count. Patient follows with Dr. Killian of [facility] hematology and also has heart failure diabetes and persistent atrial fibrillation no longer on anticoagulation due to pancytopenia. He presented to the hospital on 06/29 with neutropenic fever. He was found to have a bacteremia due to ESBL Klebsiella pneumonia. He also had a tongue lesion and is going to see ENT for this to assess the need for biopsy. Given he was on Levaquin prior to the ESBL Klebsiella growing in the blood ID was concerned of port infection. ENT did see him inpatient on 07/08 and exam was consistent with hairy tongue and small ulcerative lesion of the right dorsal/lateral tongue which been present for 2 months. It occurred in the setting of trauma and had not fully healed. It did not appear consistent with malignancy or infectious etiology. Given his severe thrombocytopenia ENT did not recommend biopsy at this time. Peridex mouth rinses twice daily was recommended with outpatient follow-up. Further discussion with ID occurred on 07/08 and oral levofloxacin 750 mg daily until blood counts recover was recommended. He was discharged on 07/08 and continued on Cresemba and acyclovir. Respiratory viral panel was negative chest x-ray was without acute abnormalities. CT chest revealed no pneumonia or infiltrate and urinalysis was negative. He returned on 07/24 with sepsis, neutropenic fever and persistent pancytopenia. No clear source of infection has been ascertained and he remains pancytopenic with an ANC today of 130. An echocardiogram this admission is unremarkable. He remains febrile despite broad-spectrum antibiotics with vancomycin and meropenem and Cresemba and acyclovir for over 10 days. I discussed the case with Dr. Valerio from [facility] hematology who suggested this appears infectious. I discussed the case with Dr. Larsen from [facility] who recommended a chest CT. Chest CT without contrast performed today revealed a nonspecific ground glass opacities in the right lung that are subtle. There are no respiratory symptoms and hypoxia not present; no increased respiratory effort. Given he has been neutropenic for approximately 2-3 months he may need another bone marrow biopsy. Transfusion reactions may also be to blame for his fevers. He has a suspected port infection however this port cannot be removed given his thrombocytopenia that is severe. He remains transfusion dependent. No additional infectious etiology can be confirmed this admission, however as thrombocytopenia precludes an LP. If we have nothing at this point we are unlikely to uncover an infection and transfer to [facility] is preferred. I discussed this with he and his who are both in agreement with the plan. I coordinated with the transfer centers this evening and the excepting hospitalist physician is Dr. Ray Massey. We are awaiting bed availability at this point. Case management is obtaining auth from insurance for the transfer. As this still make take 24-48 hours, I did contact Dr. Arias from Hematology here at [facility] and we discussed the case. Fibrinogen was low (114) and we discussed this was likely from his cancer. Ongoing fevers may also be cancer related, but she was agreeable to see him while we are awaiting the transfer. Peripheral smear dose not reveal evidence of blasts which does not exclude marrow involvement. retic is very low . LDH is elevated which may be concerning for hemolysis but no evidence of schistocytes on periph smear, SERGO neg, no evidence of renal failure which is reassuring. Today the patient denies continues to deny any repsiratory symptoms, urinary symptoms, diarrhea, or abdominal pain. He has ongoing fevers and chills with sweats. Physical Exam Physical Exam: CONSTITUTIONAL: WNWD, vitals as above, generally well-appearing, NAD EYES: normal conjunctivae, no scleral icterus, ENT: external ear and nose normal, oropharynx clear, MMM NECK: trachea midline RESPIRATORY: clear to auscultation bilaterally, no crackles, rales or wheezes, normal respiratory effort CARDIOVASCULAR: regular rate and rhythm, S1 and 2 heard without murmurs, gallops or rubs, no JVD, no peripheral edema CHEST: +port to right anterior chest wall, site look s good without redness or irritation. GASTROINTESTINAL: soft, nontender, ND, no guarding MUSCULOSKELETAL: strength 5/5 throughout, head is normocephalic and atraumatic, SKIN: warm and dry, significant ecchymosis on both flexor surfaces of distal arms.-improving. Petechial rash on bilateral legs mostly in the upper thighs. NEUROLOGIC: CN 2-12 grossly intact, no sensory deficit, normal cognition, normal speech, no tremor PSYCHIATRIC: alert cooperative and oriented to person, place and time. Euthymic mood, makes good eye contact, language grossly intact, recent and remote memory grossly intact. Results & Data Results & Data Vital Signs (Past 12 Hours) Vital Signs Temp Pulse Pulse Resp BP BP BP 08/05/23 11:20 36.2 C L 68 18 114/78 08/05/23 11:11 08/05/23 11:01 36.0 C L 64 19 90/69 L 08/05/23 07:46 66 08/05/23 07:27 38.2 C H 84 19 119/75 08/05/23 03:34 37 C 72 18 123/65 Pulse Ox O2 Del Method O2 Flow Rate 08/05/23 11:20 96 08/05/23 11:11 Room Air 08/05/23 11:01 94 Room Air 08/05/23 07:46 08/05/23 07:27 94 Room Air 08/05/23 03:34 95 Nasal Cannula 2 Laboratory Results Short CBC 08/05/23 Range/Units 07:31 WBC 0.11 L* (4.8-10.8) K/ul Hgb 6.9 L* (14.0-18.0) g/dl Hct 19.7 L* (42.0-52.0) % Plt Count 3 L* D (130-400) K/uL BMP 08/05/23 07:31 Creatinine 0.70 Urine 08/04/23 Range/Units 20:30 Urine Color Dark Yellow Urine Appearance Clear (Clear) Urine pH 7.0 (4.5-7.5) Ur Specific Greig 1.017 (1.000-1.030) Urine Protein 2+ H (Negative) Urine Glucose (UA) Negative (Negative) Medications Administered Current Inpatient Medications Acetaminophen (Acetaminophen 325 Mg Tab) 650 mg PO Q4H PRN PRN Reason: Moderate Pain (Scale 4, 5, 6) Stop: 08/23/23 14:02 Last Admin: 08/05/23 08:23 Dose: 650 mg Acyclovir (Acyclovir 400 Mg Tab) 400 mg PO BID ANA MARÍA Stop: 08/23/23 20:59 Last Admin: 08/05/23 08:23 Dose: 400 mg Amiodarone HCl (Amiodarone 200 Mg Tab) 200 mg PO DAILY ANA MARÍA Stop: 08/24/23 08:59 Last Admin: 08/05/23 08:23 Dose: 200 mg Amlodipine Besylate (Amlodipine Besylate 5 Mg Tab) 2.5 mg PO DAILY ANA MARÍA Stop: 08/24/23 08:59 Last Admin: 08/05/23 08:24 Dose: 2.5 mg Calcium Carbonate (Calcium Carbonate 1250mg Tab) 1,250 mg PO BID [facility] Stop: 08/30/23 20:59 Last Admin: 08/05/23 08:25 Dose: 1,250 mg Chlorhexidine Gluconate (Chlorhexidine Gluconate 0.12% 480 Ml) 15 ml MT BID [facility] Stop: 08/23/23 20:59 Last Admin: 08/05/23 08:27 Dose: 15 ml Dextrose (Dextrose 50% 50 Ml Syringe) 25 - 50 ml IV UD PRN; Protocol PRN Reason: Hypoglycemia Protocol Stop: 08/23/23 13:26 Escitalopram Oxalate (Escitalopram Oxalate 10 Mg Tab) 10 mg PO DAILY [facility] Stop: 08/24/23 08:59 Last Admin: 08/05/23 08:25 Dose: 10 mg Finasteride (Finasteride 5 Mg Tab) 5 mg PO HS ANA MARÍA Stop: 08/23/23 20:59 Last Admin: 08/04/23 20:09 Dose: 5 mg Furosemide (Furosemide 40 Mg Tab) 40 mg PO DAILY ANA MARÍA Stop: 08/26/23 08:59 Last Admin: 08/05/23 08:25 Dose: 40 mg Gabapentin (Gabapentin 100 Mg Cap) 100 mg PO TID ANA MARÍA Stop: 08/23/23 13:59 Last Admin: 08/05/23 08:24 Dose: 100 mg Glucagon (Glucagon For Inj 1 Mg Vial) 1 mg SQ UD PRN; Protocol PRN Reason: Hypoglycemia Protocol Stop: 08/23/23 13:26 Glucose (Glucose 10 Tab/Tube) 4 - 8 tab PO UD PRN; Protocol PRN Reason: Hypoglycemia Treatment Stop: 08/23/23 13:26 Glucose (Glucose 40% Gel 15 Gm Tube) 15 - 30 gm PO UD PRN; Protocol PRN Reason: Hypoglycemia Protocol Stop: 08/23/23 13:26 Heparin Sodium (Porcine) (Heparin 100 Unit/Ml 5ml Flush) 5 ml FLUSH PRN PRN PRN Reason: Flush Stop: 08/24/23 03:18 Last Admin: 08/04/23 20:03 Dose: 5 ml Meropenem 500 mg/ Syringe 10 mls @ 2 mls/min IV Q6H ANA MARÍA; Protocol Stop: 08/07/23 15:59 Last Admin: 08/05/23 12:04 Dose: 2 mls/min Vancomycin HCl 1,250 mg/ (Sodium Chloride) 275 mls @ 200 mls/hr IV Q12H ANA MARÍA Stop: 08/14/23 20:59 Last Infusion: 08/05/23 10:28 Dose: Infused Isavuconazonium Sulfate (Isavuconazonium Sulfate 186 Mg Cap) 372 mg PO DAILY ANA MARÍA Stop: 09/02/23 08:59 Last Admin: 08/05/23 08:26 Dose: 372 mg Losartan Potassium (Losartan Potassium 50 Mg Tab) 100 mg PO QAM ANA MARÍA Stop: 08/26/23 08:59 Last Admin: 08/05/23 08:25 Dose: 100 mg Magnesium Oxide (Magnesium Oxide 400 Mg Tab) 400 mg PO BID [facility] Stop: 09/04/23 12:14 Metformin HCl (Metformin Hcl 500 Mg Tab) 500 mg PO BIDM [facility] Stop: 09/02/23 16:59 Last Admin: 08/05/23 08:27 Dose: 500 mg Miscellaneous (Carbohydrates For Hypoglycemia ) 15 - 30 gm PO UD PRN PRN Reason: Hypoglycemia Protocol Stop: 08/23/23 13:26 Miscellaneous Information (Vancomycin Consult Active) 1 each N/A UD PRN PRN Reason: Consult Stop: 08/30/23 10:32 Multivitamins/Minerals (Cerovite Adv Formula Tab) 1 tab PO QAM [facility] Stop: 08/24/23 08:59 Last Admin: 08/05/23 08:24 Dose: 1 tab Nystatin (Nystatin Susp 500,000 U/5 Ml Udc) 5 ml PO BID [facility] Stop: 08/23/23 20:59 Last Admin: 08/05/23 08:25 Dose: 5 ml Ondansetron HCl (Ondansetron Inj 2 Mg/Ml 2 Ml Vial) 4 mg IV Q4H PRN PRN Reason: Nausea And Vomiting Stop: 08/23/23 14:02 Last Admin: 08/02/23 08:10 Dose: 4 mg Oxycodone HCl (Oxycodone Hcl Ir 5 Mg Tab (Immediate Release)) 5 mg PO Q8H PRN PRN Reason: Pain Stop: 08/07/23 13:11 Last Admin: 08/05/23 08:35 Dose: 5 mg Pantoprazole Sodium (Pantoprazole 40 Mg Tab) 40 mg PO DAILYBB [facility] Stop: 08/24/23 06:29 Last Admin: 08/05/23 06:12 Dose: 40 mg Potassium Chloride (Potassium Chloride 10 Meq Tabcr) 10 meq PO DAILY [facility] Stop: 08/24/23 08:59 Last Admin: 08/05/23 08:25 Dose: 10 meq Potassium Phosphate (Pot Phosphate Monobasic W/ Sod Tab) 2 tab PO QID [facility] Stop: 08/05/23 21:01 Rosuvastatin Calcium (Rosuvastatin Calcium 10 Mg Tab) 10 mg [facility] Stop: 08/24/23 08:59 Last Admin: 08/05/23 08:24 Dose: 10 mg Tamsulosin HCl (Tamsulosin Hcl 0.4 Mg Cap) 0.4 mg PO HS [facility] Stop: 08/23/23 20:59 Last Admin: 08/04/23 20:08 Dose: 0.4 mg Vitamin D (Cholecalciferol 1,000 Units 25 Mcg Tab) 1,000 units PO QAM [facility] Stop: 08/31/23 08:59 Last Admin: 08/05/23 08:24 Dose: 1,000 units (6) Atrial fibrillation Atrial fibrillation type: unspecified Qualified Code(s): I48.91 - Unspecified atrial fibrillation (7) Anemia Anemia type: unspecified type Qualified Code(s): D64.9 - Anemia, unspecified
[2023-08-05] MEDS: POT PHOSPHATE MONOBASIC W/ SOD TAB PO SCH ×3 (12:22→23:30)
[2023-08-05] MEDS: MAGNESIUM OXIDE 400 MG TAB PO SCH ×2 (12:24→23:27)
[2023-08-05] MEDS ORDERED: SODIUM CHLORIDE 0.9% 250 ML IV PRN (19:09)
[2023-08-05 19:14] LABS: Iron 165 mcg/dl (35-175); Unsaturated Iron Binding Cap < 55 mcg/dl (155-355)
[2023-08-05 19:36] LABS: Folate (Folic Acid),Ser orPlas 18.21 ng/ml (>5.38)
[2023-08-05 20:14] LABS: Ferritin > 7500.0 ng/ml (8-388)
[2023-08-05 20:36] LABS: Hematocrit (blood only) 22.1 % (42.0-52.0); Hemoglobin 7.5 g/dl (14.0-18.0); Mean Corpuscular Hemoglobin 28.2 pg (25.0-34.0); Mean Corpuscular Hgb Conc 33.9 g/dL (32.0-36.0); Mean Corpuscular Volume 83.1 fL (80.0-100.0); Mean Platelet Volume 12.2 fL (9.4-12.4); Platelet Count 5 K/uL (130-400); RDW Coefficient of Variation 14.7 % (11.5-14.5); Red Blood Count 2.66 M/uL (4.70-6.10); White Blood Count 0.12 K/ul (4.8-10.8)
[2023-08-05] MEDS: FINASTERIDE 5 MG TAB PO SCH (23:28)
[2023-08-05] MEDS: TAMSULOSIN HCL 0.4 MG CAP PO SCH (23:30)
[2023-08-06] MEDS: PANTOprazole 40 MG TAB PO SCH (05:51)
[2023-08-06] MEDS: MEROPENEM 500 MG in SYRINGE 0 ML IV SCH ×3 (05:51→18:03)
[2023-08-06 08:03] LABS: Fibrinogen 103 mg/dl (184-400)
[2023-08-06] MEDS: CHLORHEXIDINE GLUCONATE 0.12% 480 ML MT SCH ×2 (09:07→20:10)
[2023-08-06] MEDS: ISAVUCONAZONIUM SULFATE 186 MG PO SCH (09:08)
[2023-08-06] MEDS: MAGNESIUM OXIDE 400 MG TAB PO SCH ×2 (09:08→20:05)
[2023-08-06] MEDS: LOSARTAN POTASSIUM 50 MG TAB PO SCH (09:09)
[2023-08-06] MEDS: NYSTATIN SUSP 500,000 U/5 ML UDC PO SCH ×2 (09:09→20:07)
[2023-08-06] MEDS: CEROVITE ADV FORMULA TAB PO SCH (09:09)
[2023-08-06] MEDS: CHOLECALCIFEROL 1,000 UNITS 25 MCG TAB PO SCH (09:09)
[2023-08-06] MEDS: GABAPENTIN 100 MG CAP PO SCH ×3 (09:09→20:05)
[2023-08-06] MEDS: POTASSIUM CHLORIDE 10 MEQ TABCR PO SCH (09:09)
[2023-08-06] MEDS: AMIODARONE 200 MG TAB PO SCH (09:09)
[2023-08-06] MEDS: ACYCLOVIR 400 MG TAB PO SCH ×2 (09:09→20:04)
[2023-08-06] MEDS: CALCIUM CARBONATE 1250MG TAB PO SCH ×2 (09:10→20:06)
[2023-08-06] MEDS: metFORMIN HCL 500 MG TAB PO SCH ×2 (09:10→18:00)
[2023-08-06] MEDS: FUROSEMIDE 40 MG TAB PO SCH (09:10)
[2023-08-06] MEDS: ROSUVASTATIN CALCIUM 10 MG TAB PO SCH (09:10)
[2023-08-06] MEDS: ESCITALOPRAM OXALATE 10 MG TAB PO SCH (09:10)
[2023-08-06] MEDS: amLODIPine BESYLATE 5 MG TAB PO SCH (09:10)
[2023-08-06] MEDS: ACETAMINOPHEN 325 MG TAB PO PRN ×2 (09:16→19:57)
[2023-08-06] MEDS: VANCOMYCIN HCL 1,250 MG in SODIUM CHLORIDE 0.9% 250 ML IV SCH ×2 (09:16→20:18)
[2023-08-06] MEDS ORDERED: CYANOCOBALAMIN (B-12) 500 MCG TABLET PO SCH (09:30)
[2023-08-06] MEDS: oxyCODONE HCL IR 5 MG TAB (IMMEDIATE RELEASE) PO PRN ×2 (09:51→19:56)
[2023-08-06 09:52] LABS: BUN Creatinine Ratio 18.5 (10-20); Calcium 7.7 mg/dl (8.6-10.3); Creatinine Clr Calc Pharmacy 117.7 ml/min; Est GFR (African American) 115.1 ml/min; Est GFR (Non-African American) 99.3 ml/min; Magnesium 1.7 mg/dl (1.7-2.4); Phosphorus 2.5 mg/dl (2.5-4.9); Potassium 3.5 mmol/L (3.5-5.1)
[2023-08-06 10:05] LABS: Hematocrit (blood only) 21.6 % (42.0-52.0); Hemoglobin 7.3 g/dl (14.0-18.0); Mean Corpuscular Hemoglobin 28.2 pg (25.0-34.0); Mean Corpuscular Hgb Conc 33.8 g/dL (32.0-36.0); Mean Corpuscular Volume 83.4 fL (80.0-100.0); Platelet Count 3 K/uL (130-400); RDW Coefficient of Variation 14.8 % (11.5-14.5); RDW Standard Deviation 45.1 fL (36.4-46.3); Red Blood Count 2.59 M/uL (4.70-6.10); White Blood Count 0.14 K/ul (4.8-10.8)
--- NOTE | 2023-08-06 18:42 | Hospitalist Progress Note ---
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 Febrile Neutropenia in the setting of Relapsed AML Patient presented to the ED with fever and chills. He was on Levaquin as per infectious disease as well as acyclovir and Cresemba for prophylaxis against infection. Chest x-rayno acute findings. UA not suggestive of infection Lyme screening negative Blood culture on July 24July [id number] Fungal culture -NGTD Rickettsial panel including anaplasma and babesia is negative. Q fever, neg, Typhoid neg, aspergillus neg urine histoplasma galactomannan Ag neg Biofire respiratory panel negative Continues to be pancytopenic and transfusion dependent He is not interested in a SCT as treatment bc he doesn't think he would survive it. We are continuing with empiric vancomycin and meropenem-fevers continues ID consulted- -recommended removing pt's port as source of infection -General Surgery contacted: recommended transfusing platelets with goal of 50K for port to be removed. Unfortunately, blood bank cannot supply enough platelets. 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 -Case discussed with [facility] transfer center, [facility] heme/onc and [facility] General surgery (pt preferred [facility] over [facility]) on 07/30- heme/onc advised that pt would need HLA matched platelets at this time, limited supply there as well. General surgery advised that with limited platelets there, pt would be at risk of bleeding to during the procedure there as well. Transfer was not advised, heme/onc advised that infection was stabilized and to continue with IV antibiotics, treat the AML and consider port removal at a later point once pt's counts have improved on their own through AML treatment. -Case discussed with ID once more (Dr Bourne) on 07/30- advised to continue with IV Meropenem. 07/31- Case further discussed with ID Dr Bourne- recommending repeating blood cultures from the port, addition of IV Vancomycin. Advised consider discharge only when pt has been free from fever for 48hours. Continue IV antibiotics until port removed. 08/01- Requests to change timing of meropenem abx so pt can train to give it at home. Also agreeable to Palliative Care consult today for discussion of goals of care. 08/02-pt requiring transfusion of both platelets and pRBCs today. Blood bank concerned about supply and constant need for transfusions especially of platelets. 48 hours free of fevers. Per , pt is set up for home administration of abx. However given need for transfusions of both platelets and blood today, infusion company delivery and home health agency visit was cancelled with reevaluation scheduled for after the holidays on 08/05. 08/05-accepted transfer to [facility], awaiting ins auth and bed. Cont current therapy. Transfuse 1 u PRBC and 1 pack platelets. cryo per hematology. Less concern for hemolysis or DIC. Low fibrinogen likley related to malignancy. 1/3 prior auth obtained and awaiting bed. Discussed w/ Dr. Arias (hematology) today - recommend to transfuse 1 unit of plt and 2 units of cryoprecipitate. Relapsed AML chemotherapy and on hold since April 2023 secondary to pancytopenia -pt reports that he is in remission. Last chemotherapy was in between April 08 to april 11, 2023 He was recently started on 480 mcg G-CSF twice a week due to persistent neutropenia. Plan is to give twice a week dose on Mondays and , but orders were not continued for this. Will readdress with Hematology who is seeing him S/p 15 units of platelets and 5 units of packed RBC during the hospitalization so far S/p Neupogen 480 mg on July 28, 2023 Remains transfusion dependent every couple of days. Trend CBC with differential daily /3 - plan to transfuse ple and cryoprecipitate as above Atrial fibrillation chronic, stable. In sinus rhythm today. Rate control with amiodarone Not on anticoagulation due to thrombocytopenia Diabetes mellitus, type 2 A1C of 7.3 too many BSG fingersticks and insulin sticks causing significant ecchymosis on finger tips, arms and abdomen. Stop all fingersticks and insulin at this point and cont with home metformin at 50% dose. If any contrast is needed, metformin will need to be stopped for at least 48 hours and not restarted for another 48 hours. No plans for needing contrast at this point and want to mitigate the ecchymosis. Continue gabapentin for neuropathy Hyperlipidemia Cont statin therapy Hypertension chronic, stable. Continue Lasix (with K+) and losartan, amlodipine Continue to monitor BP Hairy leukoplakia of the tongue Tongue lesion Diagnosed by ENT during hospitalization in early July Continue Peridex mouth wash. Pt reports that he also bit his tongue and is using swish for pain which is manageable. Mood chronic, stable. Continue Lexapro BPH chronic, stable. Continue flomax and proscar DVT ppx: teds, scds Diet: HH/DM diet CODE: FULL Dispo: plan to transfer to [facility] when bed available Admission and Anticipated Discharge Date Admission Date: July 24, 2023 Subjective Pt seen in follow up neutropenic fever, pancytopenia. Patient also requires frequent transfusions. Despite being on antibiotic therapy, continues to be febrile. History of AML. He is sitting up in bed in no acute distress. Had a hot flash earlier. Denies chest pain shortness of breath abdominal pain nausea vomiting. Discussed with Dr. Arias today, will transfuse unit of platelets, and 2 units of cryoprecipitate. Called transfer center as patient is accepted to [facility], but awaiting prior auth. Prior auth was approved today and currently waiting for bed. Pt was updated. Review of Systems Review of Systems: All systems reviewed & are unremarkable except as noted in Subjective Physical Exam Physical Exam: CONSTITUTIONAL: WNWD M in NAD EYES: normal conjunctivae, no scleral icterus, ENT: external ear and nose normal, oropharynx clear, MMM NECK: supple RESPIRATORY: clear to auscultation bilaterally, no crackles, rales or wheezes, normal respiratory effort CARDIOVASCULAR: regular rate and rhythm, S1 and 2 heard without murmurs CHEST: +port to right anterior chest wall, site without redness or irritation. GASTROINTESTINAL: soft, nontender, ND, no guarding MUSCULOSKELETAL: strength 5/5 throughout, head is normocephalic and atraumatic, SKIN: warm and dry, significant ecchymosis on both flexor surfaces of distal arms.-improving. Petechial rash on bilateral legs mostly in the upper thighs. NEURO/PSYCH: awake, alert, oriented, answers appropriately, speech fluent, moves extremities Results & Data Results & Data Vital Signs (Past 12 Hours) Vital Signs Temp Pulse Pulse Resp BP BP BP 08/06/23 15:53 36.4 C L 71 121/76 08/06/23 15:31 36.4 C L 63 129/77 08/06/23 15:01 36.3 C L 61 16 130/78 08/06/23 14:46 36.3 C L 65 18 123/77 08/06/23 14:28 36.9 C 65 18 113/72 08/06/23 14:17 36.9 C 67 16 120/72 08/06/23 14:07 84 08/06/23 14:00 36.7 C 67 18 114/77 08/06/23 13:47 36.9 C 69 16 112/72 08/06/23 13:45 36.9 C 69 16 112/72 08/06/23 13:21 36.6 C 74 18 96/74 L 08/06/23 11:29 73 08/06/23 11:01 08/06/23 10:36 38.2 C H 75 19 120/66 08/06/23 09:06 37.5 C 86 16 122/74 Pulse Ox O2 Del Method 08/06/23 15:53 97 08/06/23 15:31 94 08/06/23 15:01 93 08/06/23 14:46 94 08/06/23 14:28 93 08/06/23 14:17 92 08/06/23 14:07 08/06/23 14:00 94 08/06/23 13:47 93 08/06/23 13:45 93 08/06/23 13:21 96 08/06/23 11:29 08/06/23 11:01 Room Air 08/06/23 10:36 93 Room Air 08/06/23 09:06 92 Room Air Laboratory Results 08/06/23 08/06/23 08/05/23 Range/Units 08:57 06:51 19:48 WBC 0.14 L* 0.12 L* (4.8-10.8) K/ul RBC 2.59 L 2.66 L (4.70-6.10) M/uL Hgb 7.3 L 7.5 L (14.0-18.0) g/dl Hct 21.6 L 22.1 L (42.0-52.0) % MCV 83.4 83.1 (80.0-100.0) fL MCH 28.2 28.2 (25.0-34.0) pg MCHC 33.8 33.9 (32.0-36.0) g/dL RDW Std Deviation 45.1 45.0 (36.4-46.3) fL RDW Coeff of Anna 14.8 H 14.7 H (11.5-14.5) % Plt Count 3 L* 5 L* D (130-400) K/uL MPV 9.0 L 12.2 (9.4-12.4) fL Immature Gran % (Auto) Cancelled Neut % (Auto) Cancelled Lymph % (Auto) Cancelled [place] % (Auto) Cancelled Eos % (Auto) Cancelled Baso % (Auto) Cancelled Neut # (Auto) Cancelled Lymph # (Auto) Cancelled [place] # (Auto) Cancelled Eos # (Auto) Cancelled Baso # (Auto) Cancelled Immature Gran # (Auto) Cancelled Neutrophils % (Manual) Cancelled Band Neutrophils % Cancelled Lymphocytes % (Manual) Cancelled Prolymphocyte % Cancelled Reactive Lymphs % (Man) Cancelled Monocytes % (Manual) Cancelled Eosinophils % (Manual) Cancelled Basophils % (Manual) Cancelled Metamyelocytes % (Man) Cancelled Myelocytes % (Man) Cancelled Promyelocytes % (Man) Cancelled Blast Cells % (Manual) Cancelled Plasma Cell % (Manual) Cancelled Other Cells % Cancelled Nucleated RBC % Cancelled Neutrophils # (Manual) Cancelled Band Neutrophils # Cancelled Total Absolute Neuts Cancelled Lymphocytes # (Manual) Cancelled Prolymphocyte # Cancelled Reactive Lymphs # Cancelled Total Abs Lymphocytes Cancelled Monocytes # (Manual) Cancelled Eosinophils # (Manual) Cancelled Basophils # (Manual) Cancelled Metamyelocytes # (Man) Cancelled Myelocytes # (Manual) Cancelled Promyelocytes # (Man) Cancelled Blast Cells # (Man) Cancelled Plasma Cell # (Manual) Cancelled Other Cells # Cancelled Nucleated RBCs # (Man) Cancelled Hypersegmented Neuts Cancelled Hyposegmented Neuts Cancelled Hypogranular Neuts Cancelled Large Granular Lymphs Cancelled # Lrg Granular Lymphs Cancelled Hairy Cells Cancelled Smudge Cells Cancelled Toxic Granulation Cancelled Toxic Vacuolation Cancelled Dohle Bodies Cancelled Becky Rods Cancelled Hypogranular Platelets Cancelled Giant Platelets Cancelled Platelet Satelliting Cancelled RBC Morphology Cancelled Polychromasia Cancelled Hypochromasia Cancelled Poikilocytosis Cancelled Basophilic Stippling Cancelled Anisocytosis Cancelled Microcytosis Cancelled Macrocytosis Cancelled Spherocytes Cancelled Pappenheimer Bodies Cancelled Sickle Cells Cancelled Target Cells Cancelled Tear Drop Cells Cancelled Ovalocytes Cancelled Stomatocytes Cancelled [place] Bodies Cancelled Echinocytes Cancelled Acanthocytes (Spur) Cancelled Rouleaux Cancelled RBC Agglutinates Cancelled Schistocytes Cancelled [place] Cell Cancelled Fibrinogen 103 L (184-400) mg/dl Sodium 135 L (136-145) mmol/L Potassium 3.5 (3.5-5.1) mmol/L Chloride 96 L (98-107) mmol/L Carbon Dioxide 33 H (21-32) mmol/L Anion Gap 6 (3-11) BUN 12 (6-23) mg/dl Creatinine 0.65 (0.6-1.4) mg/dl Est Cr Clr Drug Dosing 117.7 ml/min Est GFR ( Amer) 115.1 ml/min Est GFR (Non-Af Amer) 99.3 ml/min BUN/Creatinine Ratio 18.5 (10-20) Glucose 138 H (70-99(Fasting)) mg/dl Calcium 7.7 L (8.6-10.3) mg/dl Phosphorus 2.5 (2.5-4.9) mg/dl Magnesium 1.7 (1.7-2.4) mg/dl Iron (35-175) mcg/dl TIBC Unsaturated IBC (155-355) mcg/dl Transferrin % Sat Ferritin (8-388) ng/ml Vitamin B12 (180-914) pg/ml Folate (>5.38) ng/ml Blood Parasites ID Cancelled Blood Type Antibody Screen Direct Antiglob Test (Negative) SERGO (IgG-AHG) (Negative) SERGO, Polyspecific (Negative) SERGO C3b, C3d 5 Min (Negative) Crossmatch 08/05/23 08/05/23 08/04/23 Range/Units 07:34 07:31 20:05 WBC (4.8-10.8) K/ul RBC (4.70-6.10) M/uL Hgb (14.0-18.0) g/dl Hct (42.0-52.0) % MCV (80.0-100.0) fL MCH (25.0-34.0) pg MCHC (32.0-36.0) g/dL RDW Std Deviation (36.4-46.3) fL RDW Coeff of Anna (11.5-14.5) % Plt Count (130-400) K/uL MPV (9.4-12.4) fL Immature Gran % (Auto) Neut % (Auto) Lymph % (Auto) [place] % (Auto) Eos % (Auto) Baso % (Auto) Neut # (Auto) Lymph # (Auto) [place] # (Auto) Eos # (Auto) Baso # (Auto) Immature Gran # (Auto) Neutrophils % (Manual) Band Neutrophils % Lymphocytes % (Manual) Prolymphocyte % Reactive Lymphs % (Man) Monocytes % (Manual) Eosinophils % (Manual) Basophils % (Manual) Metamyelocytes % (Man) Myelocytes % (Man) Promyelocytes % (Man) Blast Cells % (Manual) Plasma Cell % (Manual) Other Cells % Nucleated RBC % Neutrophils # (Manual) Band Neutrophils # Total Absolute Neuts Lymphocytes # (Manual) Prolymphocyte # Reactive Lymphs # Total Abs Lymphocytes Monocytes # (Manual) Eosinophils # (Manual) Basophils # (Manual) Metamyelocytes # (Man) Myelocytes # (Manual) Promyelocytes # (Man) Blast Cells # (Man) Plasma Cell # (Manual) Other Cells # Nucleated RBCs # (Man) Hypersegmented Neuts Hyposegmented Neuts Hypogranular Neuts Large Granular Lymphs # Lrg Granular Lymphs Hairy Cells Smudge Cells Toxic Granulation Toxic Vacuolation Dohle Bodies Becky Rods Hypogranular Platelets Giant Platelets Platelet Satelliting RBC Morphology Polychromasia Hypochromasia Poikilocytosis Basophilic Stippling Anisocytosis Microcytosis Macrocytosis Spherocytes Pappenheimer Bodies Sickle Cells Target Cells Tear Drop Cells Ovalocytes Stomatocytes [place]ill[place] Bodies Echinocytes Acanthocytes (Spur) Rouleaux RBC Agglutinates Schistocytes [place]zary Cell Fibrinogen (184-400) mg/dl Sodium (136-145) mmol/L Potassium (3.5-5.1) mmol/L Chloride (98-107) mmol/L Carbon Dioxide (21-32) mmol/L Anion Gap (3-11) BUN (6-23) mg/dl Creatinine (0.6-1.4) mg/dl Est Cr Clr Drug Dosing ml/min Est GFR ( Amer) ml/min Est GFR (Non-Af Amer) ml/min BUN/Creatinine Ratio (10-20) Glucose (70-99(Fasting)) mg/dl Calcium (8.6-10.3) mg/dl Phosphorus (2.5-4.9) mg/dl Magnesium (1.7-2.4) mg/dl Iron 165 (35-175) mcg/dl TIBC TNP Unsaturated IBC < 55 L (155-355) mcg/dl Transferrin % Sat TNP Ferritin > 7500.0 H (8-388) ng/ml Vitamin B12 143 L (180-914) pg/ml Folate 18.21 (>5.38) ng/ml Blood Parasites ID Blood Type O Positive Antibody Screen NEGATIVE Direct Antiglob Test Negative (Negative) SERGO (IgG-AHG) Neg (Negative) SERGO, Polyspecific Neg (Negative) SERGO C3b, C3d 5 Min Neg (Negative) Crossmatch See Detail Medications Administered Current Inpatient Medications Acetaminophen (Acetaminophen 325 Mg Tab) 650 mg PO Q4H PRN PRN Reason: Moderate Pain (Scale 4, 5, 6) Stop: 08/23/23 14:02 Last Admin: 08/06/23 09:16 Dose: 650 mg Acyclovir (Acyclovir 400 Mg Tab) 400 mg PO BID [facility] Stop: 08/23/23 20:59 Last Admin: 08/06/23 09:09 Dose: 400 mg Amiodarone HCl (Amiodarone 200 Mg Tab) 200 mg PO DAILY [facility] Stop: 08/24/23 08:59 Last Admin: 08/06/23 09:09 Dose: 200 mg Amlodipine Besylate (Amlodipine Besylate 5 Mg Tab) 2.5 mg PO DAILY [facility] Stop: 08/24/23 08:59 Last Admin: 08/06/23 09:10 Dose: 2.5 mg Calcium Carbonate (Calcium Carbonate 1250mg Tab) 1,250 mg PO BID ANA MARÍA Stop: 08/30/23 20:59 Last Admin: 08/06/23 09:10 Dose: 1,250 mg Chlorhexidine Gluconate (Chlorhexidine Gluconate 0.12% 480 Ml) 15 ml MT BID [facility] Stop: 08/23/23 20:59 Last Admin: 08/06/23 09:07 Dose: 15 ml Cyanocobalamin (Cyanocobalamin (B-12) 500 Mcg Tablet) 1,000 mcg PO QAM ANA MARÍA Stop: 09/05/23 09:29 Last Admin: 08/06/23 09:49 Dose: 1,000 mcg Dextrose (Dextrose 50% 50 Ml Syringe) 25 - 50 ml IV UD PRN; Protocol PRN Reason: Hypoglycemia Protocol Stop: 08/23/23 13:26 Escitalopram Oxalate (Escitalopram Oxalate 10 Mg Tab) 10 mg PO DAILY ANA MARÍA Stop: 08/24/23 08:59 Last Admin: 08/06/23 09:10 Dose: 10 mg Finasteride (Finasteride 5 Mg Tab) 5 mg PO HS ANA MARÍA Stop: 08/23/23 20:59 Last Admin: 08/05/23 23:28 Dose: 5 mg Furosemide (Furosemide 40 Mg Tab) 40 mg PO DAILY ANA MARÍA Stop: 08/26/23 08:59 Last Admin: 08/06/23 09:10 Dose: 40 mg Gabapentin (Gabapentin 100 Mg Cap) 100 mg PO TID ANA MARÍA Stop: 08/23/23 13:59 Last Admin: 08/06/23 13:15 Dose: 100 mg Glucagon (Glucagon For Inj 1 Mg Vial) 1 mg SQ UD PRN; Protocol PRN Reason: Hypoglycemia Protocol Stop: 08/23/23 13:26 Glucose (Glucose 10 Tab/Tube) 4 - 8 tab PO UD PRN; Protocol PRN Reason: Hypoglycemia Treatment Stop: 08/23/23 13:26 Glucose (Glucose 40% Gel 15 Gm Tube) 15 - 30 gm PO UD PRN; Protocol PRN Reason: Hypoglycemia Protocol Stop: 08/23/23 13:26 Heparin Sodium (Porcine) (Heparin 100 Unit/Ml 5ml Flush) 5 ml FLUSH PRN PRN PRN Reason: Flush Stop: 08/24/23 03:18 Last Admin: 08/04/23 20:03 Dose: 5 ml Meropenem 500 mg/ Syringe 10 mls @ 2 mls/min IV Q6H [facility]; Protocol Stop: 08/07/23 15:59 Last Admin: 08/06/23 18:03 Dose: 2 mls/min Vancomycin HCl 1,250 mg/ (Sodium Chloride) 275 mls @ 200 mls/hr IV Q12H [facility] Stop: 08/14/23 20:59 Last Infusion: 08/06/23 11:30 Dose: Infused Isavuconazonium Sulfate (Isavuconazonium Sulfate 186 Mg Cap) 372 mg PO DAILY [facility] Stop: 09/02/23 08:59 Last Admin: 08/06/23 09:08 Dose: 372 mg Losartan Potassium (Losartan Potassium 50 Mg Tab) 100 mg PO QAM [facility] Stop: 08/26/23 08:59 Last Admin: 08/06/23 09:09 Dose: 100 mg Magnesium Oxide (Magnesium Oxide 400 Mg Tab) 400 mg PO BID [facility] Stop: 09/04/23 12:14 Last Admin: 08/06/23 09:08 Dose: 400 mg Metformin HCl (Metformin Hcl 500 Mg Tab) 500 mg PO BIDM [facility] Stop: 09/02/23 16:59 Last Admin: 08/06/23 18:00 Dose: 500 mg Miscellaneous (Carbohydrates For Hypoglycemia ) 15 - 30 gm PO UD PRN PRN Reason: Hypoglycemia Protocol Stop: 08/23/23 13:26 Miscellaneous Information (Vancomycin Consult Active) 1 each N/A UD PRN PRN Reason: Consult Stop: 08/30/23 10:32 Multivitamins/Minerals (Cerovite Adv Formula Tab) 1 tab PO QAM [facility] Stop: 08/24/23 08:59 Last Admin: 08/06/23 09:09 Dose: 1 tab Nystatin (Nystatin Susp 500,000 U/5 Ml Udc) 5 ml PO BID [facility] Stop: 08/23/23 20:59 Last Admin: 08/06/23 09:09 Dose: 5 ml Ondansetron HCl (Ondansetron Inj 2 Mg/Ml 2 Ml Vial) 4 mg IV Q4H PRN PRN Reason: Nausea And Vomiting Stop: 08/23/23 14:02 Last Admin: 08/02/23 08:10 Dose: 4 mg Oxycodone HCl (Oxycodone Hcl Ir 5 Mg Tab (Immediate Release)) 5 mg PO Q8H PRN PRN Reason: Pain Stop: 08/07/23 13:11 Last Admin: 08/06/23 09:51 Dose: 5 mg Pantoprazole Sodium (Pantoprazole 40 Mg Tab) 40 mg PO DAILYBB [facility] Stop: 08/24/23 06:29 Last Admin: 08/06/23 05:51 Dose: 40 mg Potassium Chloride (Potassium Chloride 10 Meq Tabcr) 10 meq PO DAILY [facility] Stop: 08/24/23 08:59 Last Admin: 08/06/23 09:09 Dose: 10 meq Rosuvastatin Calcium (Rosuvastatin Calcium 10 Mg Tab) 10 mg PO QAM [facility] Stop: 08/24/23 08:59 Last Admin: 08/06/23 09:10 Dose: 10 mg Tamsulosin HCl (Tamsulosin Hcl 0.4 Mg Cap) 0.4 mg PO HS [facility] Stop: 08/23/23 20:59 Last Admin: 08/05/23 23:30 Dose: 0.4 mg Vitamin D (Cholecalciferol 1,000 Units 25 Mcg Tab) 1,000 units PO QAM [facility] Stop: 08/31/23 08:59 Last Admin: 08/06/23 09:09 Dose: 1,000 units (6) Atrial fibrillation Atrial fibrillation type: unspecified Qualified Code(s): I48.91 - Unspecified atrial fibrillation (7) Anemia Anemia type: unspecified type Qualified Code(s): D64.9 - Anemia, unspecified
[2023-08-06] MEDS: FINASTERIDE 5 MG TAB PO SCH (20:05)
[2023-08-06] MEDS: TAMSULOSIN HCL 0.4 MG CAP PO SCH (20:06)
--- NOTE | 2023-08-07 07:14 | Discharge Summary ---
Date of Service August 06, 2023 Admission HPI Per Admitting Provider This is a 68 yo M with PMHx of relapsed AML with chemo on hold since Apr 2023, thrombocytopenia, pancytopenia, HFrEF, persistent atrial fib no longer on anticoagulation, HTN, BPH, and has required multiple transfusions over the past months. Pt has tongue pain on and off which is chronic. He recently saw ENT with [facility] this past Friday, and has been using nystatin. He first noticed issues with the tongue about 3 months ago and thought he bit his tongue and that it never healed. He has trouble with eating some and feels slightly dehydrated today. Pt admits to having fever and chills on and off for the past 24hours, 101.4 was the highest overnight. He was feeling well after his last discharge from the hospital here. He does still complain of fatigue and feels this is no different. Pt was previously taking Vydaza injections from December to April and completed 5 cycles. It has been off since he's needed [facility] to maintain transfusion based care. Pt sustained a fall last Friday where he did fall and bump the right side of his head. He denies any lightheadedness, dizziness, or other acute complaints at this time. He is not on anticoagulation anymore since April. Pt does use all his medications as directed and got them this morning. Principal Diagnosis Neutropenic fever Pancytopenia AML Discharge Exam CONSTITUTIONAL: WNWD M in NAD EYES: normal conjunctivae, no scleral icterus, ENT: external ear and nose normal, oropharynx clear, MMM NECK: supple RESPIRATORY: clear to auscultation bilaterally, no crackles, rales or wheezes, normal respiratory effort CARDIOVASCULAR: regular rate and rhythm, S1 and 2 heard without murmurs CHEST: +port to right anterior chest wall, site without redness or irritation. GASTROINTESTINAL: soft, nontender, ND, no guarding MUSCULOSKELETAL: strength 5/5 throughout, head is normocephalic and atraumatic, SKIN: warm and dry, significant ecchymosis on both flexor surfaces of distal arms.-improving. Petechial rash on bilateral legs mostly in the upper thighs. NEURO/PSYCH: awake, alert, oriented, answers appropriately, speech fluent, moves extremities Discharge Data Allergies Allergy/AdvReac Type Severity Reaction Status Date / Time bee venom protein (honey bee) Allergy Mild SWELLING Verified 07/22/23 09:54 hydrocodone AdvReac Unknown NAUSEA Verified 07/22/23 09:54 nitrofurantoin AdvReac Headache Verified 07/22/23 09:54 Consultations 07/24/23 11:45 ED Decision to Admit Stat 07/26/23 13:50 Consult Infectious Diseases Routine 07/29/23 16:40 Consult General Surgery Routine 08/05/23 07:59 Consult Hematology Routine 08/06/23 19:31 Burn CD for patient Stat Procedures Performed Operation Date: 07/30/23 07:00 <No data on this case meets the specified criteria> Ordered Studies 07/24/23 12:55 CT head/brain wo con Stat 08/04/23 14:52 CT chest diagnostic wo con Urgent Hospital Course (1) Sepsis: (2) Pancytopenia: (3) Hairy leukoplakia of tongue: (4) AML (acute myeloid leukemia) in relapse: (5) Neutropenic fever: (6) Atrial fibrillation: (7) Anemia: (8) Diabetes mellitus, type 2: (9) Hyperlipidemia: (10) Hypertension: Plan Pt is a 68 yoM with PMHx of relapsed AML with chemo on hold since Apr 2023, pancytopenia requiring multiple transfusions of pRBCs and platelets over the past few months, HFrEF (Grade 1 diastolic dysfunction), persistent atrial fib no longer on anticoagulation, DMII, HTN, BPH admitted with febrile neutropenia. Febrile Neutropenia in the setting of Relapsed AML Patient presented to the ED with fever and chills. He was on Levaquin as per infectious disease as well as acyclovir and Cresemba for prophylaxis against infection. Chest x-rayno acute findings. UA not suggestive of infection Lyme screening negative Blood culture on July 24July [id number] Fungal culture -NGTD Rickettsial panel including anaplasma and babesia is negative. Q fever, neg, Typhoid neg, aspergillus neg urine histoplasma galactomannan Ag neg Biofire respiratory panel negative Continues to be pancytopenic and transfusion dependent He is not interested in a SCT as treatment bc he doesn't think he would survive it. We are continuing with empiric vancomycin and meropenem-fevers continues ID consulted- -recommended removing pt's port as source of infection -General Surgery contacted: recommended transfusing platelets with goal of 50K for port to be removed. Unfortunately, blood bank cannot supply enough platelets. 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 -Case discussed with [facility] transfer center, [facility] heme/onc and [facility] General surgery (pt preferred [facility] over [facility]) on 07/30- heme/onc advised that pt would need HLA matched platelets at this time, limited supply there as well. General surgery advised that with limited platelets there, pt would be at risk of bleeding to during the procedure there as well. Transfer was not advised, heme/onc advised that infection was stabilized and to continue with IV antibiotics, treat the AML and consider port removal at a later point once pt's counts have improved on their own through AML treatment. -Case discussed with ID once more (Dr Bourne) on 07/30- advised to continue with IV Meropenem. 07/31- Case further discussed with ID Dr Bourne- recommending repeating blood cultures from the port, addition of IV Vancomycin. Advised consider discharge only when pt has been free from fever for 48hours. Continue IV antibiotics until port removed. 08/01- Requests to change timing of meropenem abx so pt can train to give it at home. Also agreeable to Palliative Care consult today for discussion of goals of care. 08/02-pt requiring transfusion of both platelets and pRBCs today. Blood bank concerned about supply and constant need for transfusions especially of platelets. 48 hours free of fevers. Per CM, pt is set up for home administration of abx. However given need for transfusions of both platelets and blood today, infusion company delivery and home health agency visit was cancelled with reevaluation scheduled for after the holidays on 08/05. 08/05-accepted transfer to [facility], awaiting ins auth and bed. Cont current therapy. Transfuse 1 u PRBC and 1 pack platelets. cryo per hematology. Less concern for hemolysis or DIC. Low fibrinogen likley related to malignancy. 1/3 prior auth obtained and awaiting bed. Discussed w/ Dr. Arias (hematology) today - recommend to transfuse 1 unit of plt and 2 units of cryoprecipitate. Relapsed AML chemotherapy and on hold since April 2023 secondary to pancytopenia -pt reports that he is in remission. Last chemotherapy was in between April 08 to april 11, 2023 He was recently started on 480 mcg G-CSF twice a week due to persistent neutropenia. Plan is to give twice a week dose on Mondays and , but orders were not continued for this. Will readdress with Hematology who is seeing him S/p 15 units of platelets and 5 units of packed RBC during the hospitalization so far S/p Neupogen 480 mg on July 28, 2023 Remains transfusion dependent every couple of days. Trend CBC with differential daily 1/3 - plan to transfuse ple and cryoprecipitate as above Atrial fibrillation chronic, stable. In sinus rhythm today. Rate control with amiodarone Not on anticoagulation due to thrombocytopenia Diabetes mellitus, type 2 A1C of 7.3 too many BSG fingersticks and insulin sticks causing significant ecchymosis on finger tips, arms and abdomen. Stop all fingersticks and insulin at this point and cont with home metformin at 50% dose. If any contrast is needed, metformin will need to be stopped for at least 48 hours and not restarted for another 48 hours. No plans for needing contrast at this point and want to mitigate the ecchymosis. Continue gabapentin for neuropathy Hyperlipidemia Cont statin therapy Hypertension chronic, stable. Continue Lasix (with K+) and losartan, amlodipine Continue to monitor BP Hairy leukoplakia of the tongue Tongue lesion Diagnosed by ENT during hospitalization in early July Continue Peridex mouth wash. Pt reports that he also bit his tongue and is using swish for pain which is manageable. Mood chronic, stable. Continue Lexapro BPH chronic, stable. Continue flomax and proscar DVT ppx: teds, scds Diet: HH/DM diet CODE: FULL Dispo: plan to transfer to [facility] when bed available Discharge Plan Discharge Items Patient Disposition: Transfer Acute Care Hospital Reason For Visit: AML NEUTROPENIC FEVER Discharge Diagnosis: Neutropenic fever Pancytopenia AML Activity: Per Instructions section Non-emergency contact: Specialist and Oncologist Call non-emergency contact if: you have any medication questions and your symptoms worsen Follow-up/Referrals: Anthony Rico MD [Primary Care Provider] - ( ) Diet: Carb Consistent or DM2 Addtl Attending Provider Instructions: Patient presents with neutropenia/ pancytopenia and fever. He has been on antibiotic, antifungal, and antiviral therapy and despite that pt continues to be febrile. He is also dependent on frequent blood transfusions. Plan is to transfer to [facility] for further evaluation and care. Pending Studies at Discharge: Yes Studies:: final blood cultx Stand-Alone Forms: My [facility] Skilled Items Patient informed of condition?: Yes DNR: No Discharge Level of Care: Other Communicable Disease: No Discharge Prognosis: Deteriorating Lines: Peripheral IV Urinary Catheter: No Medications and DC Order Prescriptions: No Action finasteride 5 mg Tablet 5 mg PO HS Rx Instructions: Verified with [facility] acyclovir 400 mg tablet 400 mg PO BID Rx Instructions: Verified with [facility] multivitamin with minerals Tablet 1 tab PO QAM Rx Instructions: unable to verify amlodipine 2.5 mg tablet 2.5 mg PO DAILY Rx Instructions: Verified with [facility] metformin 500 mg tablet extended release 24 hr 1,000 mg PO BID Rx Instructions: on hold amiodarone 200 mg tablet 200 mg PO DAILY Rx Instructions: Verified with [facility] gabapentin 100 mg capsule 100 mg PO TID omeprazole 20 mg Capsule,Delayed Release(Dr/Ec) 20 mg PO QAM Rx Instructions: 1 hour before first meal Verified with [facility] rosuvastatin 10 mg Tablet 10 mg PO QAM Rx Instructions: Verified with [facility] tamsulosin [Flomax] 0.4 mg Capsule 4 mg PO HS Rx Instructions: Per pharmacy, it's "1 daily" Verified with [facility] losartan 100 mg Tablet 100 mg PO QAM Rx Instructions: Verified with [facility] ondansetron 4 mg tablet,disintegrating 4 mg translingual Q6 PRN (Reason: Nausea) Rx Instructions: Verified with [facility] furosemide 40 mg Tablet 40 mg PO DAILY Qty: 30 0RF Rx Instructions: Verified with [facility] potassium chloride 10 mEq Tablet,Er Particles/Crystals 10 meq PO DAILY Qty: 30 0RF Rx Instructions: Verified with [facility] tadalafil 5 mg Tablet 5 mg PO DAILY PRN (Reason: Muscle Pain) Rx Instructions: administer approximately 30min before sexual activity; do not use more than 1 dose per 24hrs Verified with [facility] eplerenone 25 mg Tablet 25 mg PO DAILY Rx Instructions: Verified with [facility] escitalopram oxalate 10 mg Tablet 10 mg PO DAILY Cresemba 186 mg Capsule 372 mg PO BID Rx Instructions: knew pt received new medication around sildenafil 0 mg PO DIRECTED PRN (Reason: Sexual Activity) Rx Instructions: Unable to verify with pharmacy nystatin 100,000 unit/mL Suspension 5 ml PO BID Rx Instructions: swish and swallow oxycodone 5 mg Tablet 5 mg PO Q8H PRN (Reason: Pain) chlorhexidine gluconate [Peridex] 0.12 % mouthwash 15 ml buccal BID Qty: 15 0RF Rx Instructions: Rinse mouth twice daily. levofloxacin 750 mg tablet 750 mg PO DAILY Qty: 30 0RF Discharge Orders: Discharge Order (Routine); Ordered 08/06/23 Ordered By: Oliver Borjas/Other Patient Handouts: Managing Type 2 Diabetes Admission Data Admit Date/Time: 07/24/23 11:37 Attending Provider: Oliver Knowles Admit Provider: Britni Arroyo Primary Care Provider: Anthony Rico Other Providers: Britni Arroyo; Filippo Galicia; Niki Cortes; Dae Larsen I.; Ricardo Ferreira II; Chey Moser; Fabián Ma; Ulises Salas; Carmelita Bourne; [facility]; Bladimir Hart; Floyd Elias; Kelsie Arias; Virginia Salinas Other Interventions: Discharge Summary Assessment (RN) Last Done: 08/06/23 22:15
== END 2023-08-06 22:15 | disposition short-term general hospital (02) | DRG 809 ==
LOC: ED 09:42 → SUATTDRO 11:37 → 2E 11:37
DX: Z79.899 Other long term (current) drug therapy; E11.9 Type 2 diabetes mellitus without complications; Z92.21 Personal history of antineoplastic chemotherapy; I11.0 Hypertensive heart disease with heart failure; D61.818 Other pancytopenia; I50.20 Unspecified systolic (congestive) heart failure; Z91.81 History of falling; Z79.84 Long term (current) use of oral hypoglycemic drugs; Z88.1 Allergy status to other antibiotic agents; C92.02 Acute myeloblastic leukemia, in relapse; Z86.19 Personal history of other infectious and parasitic diseases; E78.5 Hyperlipidemia, unspecified; Z91.030 Bee allergy status; K13.3 Hairy leukoplakia; N40.0 Benign prostatic hyperplasia without lower urinary tract symptoms; K21.9 Gastro-esophageal reflux disease without esophagitis; I48.19 Other persistent atrial fibrillation; Z87.891 Personal history of nicotine dependence; Z88.5 Allergy status to narcotic agent; R50.81 Fever presenting with conditions classified elsewhere; F39 Unspecified mood [affective] disorder